=== PATIENT | female | born 1930 | race African-American/Black ===

== ENCOUNTER 2018-02-04 12:44 | Inpatient (IN) | payer OTHER, MEDICAID ==
[~2018-02-04] VITALS: Ht 167.6 cm; Wt 84.4 kg
[2018-02-04] VITALS (14 sets, daily range): BP systolic 97–167; BP diastolic 33–97
[2018-02-04] MEDS ORDERED: cefTRIAXone 1 GM in NS 55 ML IV STA (12:52)
[2018-02-04] MEDS ORDERED: Zemuron 50mg/5ml Inj IV ONE (13:00)
[2018-02-04] MEDS ORDERED: Ipratropium 0.02% Inh Soln 2.5ml UD HHN ONE (13:00)
[2018-02-04] MEDS ORDERED: Albuterol ud Inhalation HHN ONE (13:00)
[2018-02-04 13:25] LABS: ANION GAP 5 mmol/L (5-15); BLOOD UREA NITROGEN 43 mg/dL (7-18); CALCIUM 9.2 MG/DL (8.5-10.1); CARBON DIOXIDE 31 MMOL/L (21-32); CHLORIDE 99 MMOL/L (98-107); POTASSIUM 5.2 MMOL/L (3.5-5.1); SODIUM 135 MMOL/L (136-145)
[2018-02-04 13:35] LABS: ALANINE AMINOTRANSFERASE 16 U/L (12-78); ALBUMIN 3.3 G/DL (3.4-5.0); ALBUMIN/GLOBULIN RATIO 0.7 (1.0-2.7); ALKALINE PHOSPHATASE 119 U/L (46-116); ASPARTATE AMINO TRANSFERASE 21 U/L (15-37); BILIRUBIN,TOTAL 0.3 MG/DL (0.2-1.0); CREATINE KINASE 53 U/L (26-308)
[2018-02-04 13:43] LABS: EOSINOPHILS % (AUTO) 5.6 % (0.0-3.0); HEMATOCRIT 39.9 % (37.0-47.0); HEMOGLOBIN 13.4 G/DL (12.0-16.0); LYMPHOCYTES % (AUTO) 36.3 % (20.0-45.0); MEAN CORPUSCULAR VOLUME 102 FL (80-99); MONOCYTES % (AUTO) 6.8 % (1.0-10.0); NEUTROPHILS % (AUTO) 50.3 % (45.0-75.0); PLATELET COUNT 175 K/UL (150-450); RED CELL DISTRIBUTION WIDTH 12.6 % (11.6-14.8); WHITE BLOOD COUNT 8.7 K/UL (4.8-10.8)
--- NOTE | 2018-02-04 13:58 | Emergency Room Report ---
History of Present Illness General Chief Complaint: Dyspnea/Respdistress Source: Family Member, Medical Record, EMS Present Illness HPI Patient presents from home with altered mental status. Paramedics found that she had respiratory difficulty with wheezing bilaterally and ineffective ventilations. They gave her a breathing treatment on the way in but she didn't improve that much. Initial O2 sat was 85% and remained low. Patient was unresponsive which is a change for her. She has had pneumonia in the recent past. Further history is unavailable. Patient full code. H/O strokes H/O CT H/O seizures, none witnessed at SNF Allergies: Coded Allergies: PENICILLINS (Verified Allergy, Unknown, 02/04/18) SULFA (SULFONAMIDE ANTIBIOTICS) (Verified Allergy, Unknown, 02/04/18) Patient History Past Medical History: see triage record Past Surgical History: other - G tube Social History: Denies: smoking - former Social History Narrative SNF Last Menstrual Period: N/A Now: No Reviewed Nursing Documentation: PMH: Agreed; PSxH: Agreed Nursing Documentation-PMH Hx Hypertension: Yes - CKD Hx COPD: Yes - PNA Hx Diabetes: Yes - DM II, pressure ulcer Hx Gastrointestinal Problems: Yes - GERD, dysphagia Hx Cerebrovascular Accident: Yes - contracture Hx Seizures: Yes Physical Exam Vital Signs Date Time Temp Pulse Resp B/P (MAP) Pulse Ox O2 Delivery O2 Flow Rate FiO2 02/04/18 12:45 70 26 131/72 98 Room Air General Appearance: severe distress, Chronically Ill Head: normocephalic, atraumatic Eyes: bilateral eye PERRL ENT: moist mucus membranes - poor dentition Neck: other - some rigidity Respiratory: decreased breath sounds, wheezing, expiration, inspiration, other - poor tidal volume and rate Cardiovascular #1: bradycardia, irregularly irregular Cardiovascular #2: 2+ radial (L) Gastrointestinal: other - G tube, decreased bowel sounds Musculoskeletal: other - contractures Neurologic: other - stupor and decreased responsiveness Psychiatric: other - stupor and unresponsive until intubation Skin: cyanosis Procedures Critical Care Time Critical Care Time Total Critical Care Time: 60 min bedside evaluation and treatment excludes procedures (EKG, intubation). Reason for critical care: resp failure, hypotension Possible complications: hypotension, hypertension, CT, shock, arrhythmias, metabolic acidosis, end organ damage, respiratory failure. Interventions: intubation, repeat evaluations, discussion with family, breathing treatments, treatment of hypotension with sedation Course: Patient with respiratory failure. Intubated. Sedated. Breathing treatments given. Coverage with antibiotics. Transient hypotension associated with propofol and improved with fluid bolus. Discussion with family and admitting MD. Vent changed with ABG. Consultations: nursing staff, EMS, family, RT, admitting MD Performed by: Dr. Saucedo Tolerated well condition = critical Intubation Intubation : Consent: Emergent Intubation Method: orotracheal Tube Size (cm): 7.5 - 23 teeth Medications: Etomidate Breath Sounds after Intubation: equal Intubation Complications: no complications Post Intubation Xray: Yes Attempts: Other - 2 - initially biting down before etomidate Patient Tolerated: Well Complications: None Progress Initial attempt prior to etomidate - patient not relaxed and biting down. Patient vomited after etomidate administration and suctioned by me. Second attempt successful though patient with strong cough requiring Rocuronium. Good BS bilat. No evidence of aspiration (clear ET). Medical Decision Making Diagnostic Impression: Primary Impression: Respiratory failure Qualified Codes: J96.01 - Acute respiratory failure with hypoxia; J96.02 - Acute respiratory failure with hypercapnia Additional Impressions: UTI (urinary tract infection) Qualified Codes: N30.00 - Acute cystitis without hematuria Atrial fibrillation Qualified Codes: I48.2 - Chronic atrial fibrillation ER Course Patient with respiratory distress wheezes, hypoxia and hypopnea. Ineffective respirations and respiratory failure required immediate intubation. DDX: sepsis , pneumonia, exacerbation COPD, AMI aspiration amongst others. Evaluation with EKG, CXR, labs. Bronchospasm present and albuterol/atrovent ordered. Gentle IV hydration with consideration for sepsis resuscitation if labs indicated. Consider solumedrol. Intubated. Etomidate used. Forceful respirations after and Rocuronium used before propofol initiated. EKG without injury - however, A fib with occasional bradycardic periods. CXR with possible RML infiltrate - ET good placement. Labs with normal WBC (eosinophilia), sl renal insufficiency, normal lactate and troponin. Pyuria - antibiotics begun to cover both urine and pneumonia. Hypotensive on propofol. D/C propofol. Bolus NS. Solumedrol given. BP better. Patient more alert with intubation. FIO2 decreased based on ABG. Discussed events with family. Admit ICU, Dr. Sprague. In retrospect, may be altered from UTI with severe bronchospasm causing resp failure. Laboratory Tests Test 02/04/18 12:50 02/04/18 14:05 White Blood Count 8.7 K/UL (4.8-10.8) Red Blood Count 3.90 M/UL (4.20-5.40) L Hemoglobin 13.4 G/DL (12.0-16.0) Hematocrit 39.9 % (37.0-47.0) Mean Corpuscular Volume 102 FL (80-99) H Mean Corpuscular Hemoglobin 34.4 PG (27.0-31.0) H Mean Corpuscular Hemoglobin Concent 33.6 G/DL (32.0-36.0) Red Cell Distribution Width 12.6 % (11.6-14.8) Platelet Count 175 K/UL (150-450) Mean Platelet Volume 10.7 FL (6.5-10.1) H Neutrophils (%) (Auto) 50.3 % (45.0-75.0) Lymphocytes (%) (Auto) 36.3 % (20.0-45.0) Monocytes (%) (Auto) 6.8 % (1.0-10.0) Eosinophils (%) (Auto) 5.6 % (0.0-3.0) H Basophils (%) (Auto) 1.0 % (0.0-2.0) Prothrombin Time 10.7 SEC (9.30-11.50) Prothrombin Time INR 1.0 (0.9-1.1) PTT 29 SEC (23-33) Arterial Blood pH 7.465 (7.350-7.450) Arterial Blood Partial Pressure CO2 30.6 mmHg (35.0-45.0) L Arterial Blood Partial Pressure O2 203.3 mmHg (75.0-100.0) H Arterial Blood HCO3 21.5 mmol/L (22.0-26.0) L Arterial Blood Oxygen Saturation 98.5 % (92.0-98.0) H Arterial Blood Base Excess -1.5 Jose Luis Test Positive Sodium Level 135 MMOL/L (136-145) L Potassium Level 5.2 MMOL/L (3.5-5.1) H Chloride Level 99 MMOL/L (98-107) Carbon Dioxide Level 31 MMOL/L (21-32) Anion Gap 5 mmol/L (5-15) Blood Urea Nitrogen 43 mg/dL (7-18) H Creatinine 1.0 MG/DL (0.55-1.30) Estimate Glomerular Filtration Rate mL/min (>60) Glucose Level 153 MG/DL (74-106) H Lactic Acid Level 1.70 mmol/L (0.66-2.22) Calcium Level 9.2 MG/DL (8.5-10.1) Total Bilirubin 0.3 MG/DL (0.2-1.0) Aspartate Amino Transferase (AST) 21 U/L (15-37) Alanine Aminotransferase (ALT) 16 U/L (12-78) Alkaline Phosphatase 119 U/L (46-116) H Total Creatine Kinase 53 U/L (26-308) Troponin I 0.014 ng/mL (0.000-0.056) Pro-B-Type Natriuretic Peptide 2757 pg/mL (0-125) H Total Protein 8.1 G/DL (6.4-8.2) Albumin 3.3 G/DL (3.4-5.0) L Globulin 4.8 g/dL Albumin/Globulin Ratio 0.7 (1.0-2.7) L Triglycerides Level 125 MG/DL (30-150) Urine Color Pale yellow Urine Appearance Turbid Urine pH 5 (4.5-8.0) Urine Specific [place] 1.015 (1.005-1.035) Urine Protein 3+ (NEGATIVE) H Urine Glucose (UA) Negative (NEGATIVE) Urine Ketones Negative (NEGATIVE) Urine Occult Blood 4+ (NEGATIVE) H Urine Nitrite Negative (NEGATIVE) Urine Bilirubin Negative (NEGATIVE) Urine Urobilinogen Normal MG/DL (0.0-1.0) Urine Leukocyte Esterase 3+ (NEGATIVE) H Urine RBC 5-10 /HPF (0 - 2) H Urine WBC Tntc /HPF (0 - 2) H Urine Squamous Epithelial Cells Many /LPF (NONE/OCC) H Urine Bacteria Many /HPF (NONE) H EKG Diagnostic Results Rate: bradycardiac Rhythm: other - a fib ST Segments: other Rhythm Strip Diag. Results EP Interpretation: yes Rhythm: no PVC's, no ectopy, other - a fib Chest X-Ray Diagnostic Results Chest X-Ray Diagnostic Results : Chest X-Ray Ordered: Yes # of Views/Limited/Complete: 1 View Indication: Other EP Interpretation: Yes Interpretation: no effusion, no pneumothorax, other - ET OK, inc RML Impression: Other Electronically Signed by: Electronically signed by Brayan Saucedo MD Last Vital Signs Date Time Temp Pulse Resp B/P (MAP) Pulse Ox O2 Delivery O2 Flow Rate FiO2 02/04/18 23:22 62 19 40 02/04/18 23:00 132/49 100 Mechanical Ventilator 02/04/18 15:45 97.3 15.0 97.3 Status: improved Disposition: ADMITTED INPATIENT Condition: Critical Brayan Saucedo M.D. Feb 04, 2018 13:58
--- NOTE | 2018-02-04 14:03 | Diagnostic Imaging Report ---
Indication: Dyspnea Comparison: None A single view chest radiograph was obtained. Findings: Endotracheal tube is in good position. The heart is enlarged. Lungs are clear. Bones are osteopenic. IMPRESSION: No acute disease
[2018-02-04] MEDS ORDERED: CATAPRES0.1 MG ORAL (14:30)
[2018-02-04] MEDS ORDERED: ASPIRIN81 MG GT (14:30)
[2018-02-04] MEDS ORDERED: ATORVASTATIN CA10 MG GT (14:30)
[2018-02-04 14:33] LABS: APPEARANCE,URINE TURBID; BILIRUBIN, URINE NEGATIVE (NEGATIVE); COLOR,URINE PALE YELLOW; GLUCOSE, URINE (UA) NEGATIVE (NEGATIVE); KETONES,URINE NEGATIVE (NEGATIVE); LEUKOCYTE ESTERASE ,URINE 3+ (NEGATIVE); NITRITE,URINE NEGATIVE (NEGATIVE); PH,URINE 5 (4.5-8.0); PROTEIN,URINE 3+ (NEGATIVE); UROBILINOGEN,URINE NORMAL MG/DL (0.0-1.0)
[2018-02-04] MEDS ORDERED: Solu-MEDROL 125mg Inj IVP ONE (15:00)
[2018-02-04] MEDS: LORazepam Inj 2mg/ml 1ml IV PRN (17:19)
[2018-02-04] MEDS: Vancomycin 1gm/D5W 275ml IVPB SCH ×2 (19:50)
[2018-02-04] MEDS: Heparin 5000 units/ml inj SUBQ SCH (21:25)
--- NOTE | 2018-02-04 22:00 | Consultation ---
DATE OF CONSULTATION: 02/04/2018 PULMONARY CONSULTATION CONSULTING PHYSICIAN: Navdeep Mcgowan M.D. REFERRING PHYSICIAN: Michael Sprague M.D. REASON FOR CONSULTATION: Respiratory failure. HISTORY OF PRESENT ILLNESS: This is an 87-year-old female, who is admitted through the emergency room. The patient has become altered. The patient was brought in with respiratory difficulty and wheezing. The patient's labs and x-rays reviewed as well as arterial blood gases. The patient was noted to have evidence of metabolic acidosis with adequate compensation. In the emergency room, the patient required intubation. She is in significant respiratory distress. The patient is noted to be a Full Code. Care discussed and reviewed and I was asked to evaluate and recommend further. 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 MEDICATIONS: Reviewed. ALLERGIES: Reviewed. SOCIAL HISTORY: The patient is a past smoker. Nonsmoker and nondrinker at present. longterm patient. FAMILY HISTORY: Unobtainable. REVIEW OF SYSTEMS: Unobtainable. PHYSICAL EXAMINATION: GENERAL: A well-developed female, sedated at present. VITAL SIGNS: Blood pressure 130/97, pulse 56, respirations 18, and sats are 100%. The patient is currently on 40% FiO2. HEENT: Negative. NECK: Supple. The patient is orally intubated. No jugular venous distention. LUNGS: Moderate air entry. Scattered wheezes. Scattered rhonchi overall. CARDIAC: Normal S1, S2. Irregularly irregular. Patient is rate controlled. Soft systolic murmur heard at the parasternal border. No rubs or gallops. ABDOMEN: Soft, nontender, and nondistended. EXTREMITIES: No cyanosis, clubbing, or edema. NEUROLOGICAL: Withdrawn, but sedated at present. SKIN: Noted and reviewed. LABORATORY DATA: Reviewed. ABG 7.46, 32, and 321. Chemistry, sodium 135, potassium 5.2, BUN 43, and creatinine is 1. BNP 2757. CBC noted and reviewed. White blood cell count 8.7, hematocrit 39, and platelets 175. Chest x-ray obtained notable for clear lungs. IMPRESSIONS: 1. Chronic obstructive pulmonary disease with acute exacerbation 2. Acute on chronic encephalopathy. 3. Evidence of metabolic acidosis of unclear etiology. 4. Evidence of significant bronchospasm. 5. Hypokalemia. 6. Acute renal failure. RECOMMENDATIONS: I agree with management. Ventilatory support. Sedate as needed. IV Solu-Medrol. Empiric antibiotics. IV hydration. DVT prophylaxis. Nebulized therapy and monitor clinically for change in intervention. Reassess in the a.m. for ventilatory support and possibility of weaning off the ventilator if stable. At present, monitor for agitation and worsening pressures. Navdeep Mcgowan M.D. DR: TYSHAWN JOB#: [id number] CC: PHYLLIS
[2018-02-05] VITALS (24 sets, daily range): BP systolic 89–149; BP diastolic 37–61
--- NOTE | 2018-02-05 04:45 | Consultation ---
DATE OF CONSULTATION: 02/04/2018 CARDIOLOGY CONSULTATION CONSULTING PHYSICIAN: Brayan Card M.D. REQUESTING PHYSICIAN: Michael Sprague M.D. REASON FOR CONSULTATION: Atrial fibrillation in the setting of acute respiratory failure. HISTORY OF PRESENT ILLNESS: This is an 87-year-old female. [facility]. Members of family are at bedside and have been given the majority of the historical data. The patient is now orally intubated and mechanically ventilated and is noncommunicative. The patient apparently was transferred from a prison facility with respiratory distress and congestion. She was altered, withdrawn, and her niece notes that she was not answering questions or as responsive as usual yesterday baseline her verbal communication is limited. In the emergency room, intubation and mechanical ventilation were initiated due to impending respiratory failure and I have been asked to address abnormal cardiac rhythm and further cardiovascular care. PAST MEDICAL HISTORY: Includes COPD, chronic kidney disease due to diabetic nephropathy, non-insulin requiring diabetes mellitus, gastroesophageal reflux disease, dysphagia with G-tube, cerebrovascular disease with dementia and contractures, seizure disorder, and hypertensive heart disease. MEDICATIONS: Prior to admission have been reviewed and reconciled. ALLERGIES: Include sulfa and penicillin. SOCIAL HISTORY: Prior smoker. No history of alcohol or substance abuse. FAMILY HISTORY: Noncontributory. REVIEW OF SYSTEMS: Not obtainable from the patient and pertinent data was obtained from family member and chart review as outlined above. PHYSICAL EXAMINATION: VITAL SIGNS: Blood pressure 132/49, heart rate 64, respiratory rate 18, and afebrile. HEENT: Orally intubated. Pupils are reactive. LUNGS: With coarse breath sounds and rhonchi. CARDIAC: Irregularly irregular rhythm. Normal S1. Paradoxically split S2. ABDOMEN: Soft, nontender. G-tube intact. EXTREMITIES: Trace edema. LABORATORY AND DIAGNOSTIC DATA: EKG, atrial fibrillation with slow ventricular response and bundle-branch block. Chest x-ray with possible right middle lobe infiltrate. Labs, white count 8.7, hemoglobin 13.4. ABG, 7.46, 31, 200. Urinalysis with too numerous to count white cells. Sodium 135, potassium 5.2, bicarbonate 31, BUN 43, creatinine 1.0, and glucose 153. Pro-natriuretic peptide 2700. Troponin 0.014. Albumin 3.3. IMPRESSION: 1. Atrial fibrillation with slow ventricular response. 2. 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 3. Chronic diastolic congestive heart failure with possible acute component. 4. Urinary tract infection with sepsis. 5. Cerebrovascular disease with dementia. 6. Critical and guarded. PLAN: 1. Cautious hydration. 2. Broad-spectrum antibiotics with allergies noted. 3. DVT prophylaxis. 4. Stress ulcer prophylaxis. 5. Monitor acid-base parameters. 6. Adjust vent settings accordingly. 7. Check echocardiogram. 8. Serial troponin levels. 9. No diuresis at this time. 10. Family members made aware of current critical condition and plan of care. 11. Check thyroid function. Brayan Card M.D. DR: Rocio JOB#: [id number] CC:
[2018-02-05 06:29] LABS: BASOPHILS % (AUTO) 0.4 % (0.0-2.0); EOSINOPHILS % (AUTO) 0.9 % (0.0-3.0); HEMATOCRIT 29.4 % (37.0-47.0); HEMOGLOBIN 10.2 G/DL (12.0-16.0); LYMPHOCYTES % (AUTO) 20.1 % (20.0-45.0); MEAN CORPUSCULAR VOLUME 100 FL (80-99); MONOCYTES % (AUTO) 10.6 % (1.0-10.0); PLATELET COUNT 135 K/UL (150-450); RED BLOOD COUNT 2.94 M/UL (4.20-5.40); RED CELL DISTRIBUTION WIDTH 11.9 % (11.6-14.8); WHITE BLOOD COUNT 10.2 K/UL (4.8-10.8)
[2018-02-05 07:00] LABS: ALANINE AMINOTRANSFERASE 17 U/L (12-78); ALBUMIN 2.7 G/DL (3.4-5.0); ALBUMIN/GLOBULIN RATIO 0.7 (1.0-2.7); ALKALINE PHOSPHATASE 99 U/L (46-116); ANION GAP 9 mmol/L (5-15); ASPARTATE AMINO TRANSFERASE 29 U/L (15-37); BILIRUBIN,TOTAL 0.6 MG/DL (0.2-1.0); BLOOD UREA NITROGEN 30 mg/dL (7-18); CALCIUM 8.1 MG/DL (8.5-10.1); CARBON DIOXIDE 24 MMOL/L (21-32); CHLORIDE 105 MMOL/L (98-107); CREATININE 0.8 MG/DL (0.55-1.30); POTASSIUM 3.9 MMOL/L (3.5-5.1); SODIUM 138 MMOL/L (136-145)
[2018-02-05] MEDS: Phenytoin Susp 100mg/4ml NG SCH ×2 (09:11→12:08)
[2018-02-05] MEDS: levETIRAcetam 500mg/5ml Liquid NG SCH ×2 (09:11→20:23)
[2018-02-05] MEDS: Heparin 5000 units/ml inj SUBQ SCH ×2 (09:17→20:24)
[2018-02-05] MEDS: Pantoprazole Inj IVP SCH (12:13)
[2018-02-05] MEDS ORDERED: NS 275ml ONE (14:41)
[2018-02-05] MEDS ORDERED: Tubing IV Secondary IV ONE (14:41)
--- NOTE | 2018-02-05 14:55 | Critical Care Progress Note ---
Assessment/Plan Assessment/Plan IMPRESSIONS: 1. Chronic obstructive pulmonary disease with acute exacerbation 2. Acute on chronic encephalopathy. 3. Evidence of metabolic acidosis of unclear etiology. 4. Evidence of significant bronchospasm. improved 5. Hypokalemia. 6. Acute renal failure. 7. protein calorie malnutrition PLAN care noted IV antibiotics respiratory care Ventilatory support reviewed meds supportive care suction as needed no wean today; hope to begin in am oxygen therapy prognosis guarded medications/laboratory data/nursing notes/ICU care reviewed in detail note reviewed and edited care discussed with RN and RT ICU time spent 37 minutes Critical Care - Subjective Interval Events: on the vent stable currently no significant bronchospasm ROS Limited/Unobtainable: Yes Condition: critical EKG Rhythm: Sinus Rhythm I&O: Intake and Output 02/04/18 02/05/18 19:00 07:00 Intake Total 100 ml 1475 ml Output Total 100 ml 1200 ml Balance 0 ml 275 ml Intake Oral 0 ml 0 ml IV Total 100 ml 1475 ml Output Urine Total 100 ml 1200 ml Stool Total 0 ml # Bowel Movements 1 Critical Care - Objective ET-Tube: 7.5 ET Position: 23 Last 24 Hour Vital Signs Date Time Temp Pulse Resp B/P (MAP) Pulse Ox O2 Delivery O2 Flow Rate FiO2 02/05/18 14:00 67 18 89/39 100 Mechanical Ventilator 40 02/05/18 13:01 68 18 40 02/05/18 13:00 70 18 141/53 100 Mechanical Ventilator 40 02/05/18 12:00 74 02/05/18 12:00 99.1 71 17 136/52 100 Mechanical Ventilator 40 99.1 02/05/18 12:00 40 02/05/18 11:00 73 18 147/56 100 Mechanical Ventilator 40 02/05/18 10:55 64 18 40 02/05/18 10:00 67 18 126/49 100 Mechanical Ventilator 40 02/05/18 09:00 69 18 40 02/05/18 09:00 70 18 115/42 100 Mechanical Ventilator 40 02/05/18 08:00 99.4 72 18 126/47 100 Mechanical Ventilator 40 99.4 02/05/18 08:00 40 02/05/18 08:00 70 02/05/18 07:00 70 18 104/37 100 Mechanical Ventilator 40 02/05/18 06:53 67 18 40 02/05/18 06:00 68 18 113/42 100 Mechanical Ventilator 40 02/05/18 05:12 72 18 40 02/05/18 05:00 73 18 117/46 100 Mechanical Ventilator 40 02/05/18 04:00 79 02/05/18 04:00 97.6 79 18 149/49 100 Mechanical Ventilator 40 97.6 02/05/18 04:00 40 02/05/18 03:05 66 18 40 02/05/18 03:00 66 18 110/43 100 Mechanical Ventilator 40 02/05/18 02:00 69 18 131/47 100 Mechanical Ventilator 40 02/05/18 01:25 65 18 40 02/05/18 01:00 60 18 127/46 100 Mechanical Ventilator 40 02/05/18 00:00 59 02/05/18 00:00 59 18 125/47 100 Mechanical Ventilator 40 02/05/18 00:00 40 02/04/18 23:22 62 19 40 02/04/18 23:00 54 18 132/49 100 Mechanical Ventilator 40 02/04/18 22:00 64 18 132/49 100 Mechanical Ventilator 40 02/04/18 22:00 64 02/04/18 21:20 54 18 40 02/04/18 20:07 54 18 138/33 100 Mechanical Ventilator 40 02/04/18 20:00 40 02/04/18 20:00 54 02/04/18 19:53 56 18 130/97 100 Mechanical Ventilator 40 02/04/18 19:30 40 02/04/18 19:03 56 18 40 02/04/18 18:00 56 18 130/97 100 Mechanical Ventilator 60 02/04/18 17:21 53 18 40 02/04/18 17:00 60 18 112/43 100 Mechanical Ventilator 60 02/04/18 16:16 48 02/04/18 16:00 53 53 111/82 97 Mechanical Ventilator 60 02/04/18 15:45 97.3 49 18 121/35 98 Mechanical Ventilator 15.0 60 97.3 02/04/18 15:43 40 02/04/18 15:30 53 20 149/65 98 Mechanical Ventilator 60 Labs: Laboratory Tests Test 02/05/18 05:00 White Blood Count 10.2 K/UL (4.8-10.8) Red Blood Count 2.94 M/UL (4.20-5.40) L Hemoglobin 10.2 G/DL (12.0-16.0) L Hematocrit 29.4 % (37.0-47.0) L Mean Corpuscular Volume 100 FL (80-99) H Mean Corpuscular Hemoglobin 34.8 PG (27.0-31.0) H Mean Corpuscular Hemoglobin Concent 34.8 G/DL (32.0-36.0) Red Cell Distribution Width 11.9 % (11.6-14.8) Platelet Count 135 K/UL (150-450) L Mean Platelet Volume 9.3 FL (6.5-10.1) Neutrophils (%) (Auto) 68.0 % (45.0-75.0) Lymphocytes (%) (Auto) 20.1 % (20.0-45.0) Monocytes (%) (Auto) 10.6 % (1.0-10.0) H Eosinophils (%) (Auto) 0.9 % (0.0-3.0) Basophils (%) (Auto) 0.4 % (0.0-2.0) Sodium Level 138 MMOL/L (136-145) Potassium Level 3.9 MMOL/L (3.5-5.1) Chloride Level 105 MMOL/L (98-107) Carbon Dioxide Level 24 MMOL/L (21-32) Anion Gap 9 mmol/L (5-15) Blood Urea Nitrogen 30 mg/dL (7-18) H Creatinine 0.8 MG/DL (0.55-1.30) Estimat Glomerular Filtration Rate mL/min (>60) Glucose Level 126 MG/DL (74-106) H Calcium Level 8.1 MG/DL (8.5-10.1) L Magnesium Level 2.1 MG/DL (1.8-2.4) Total Bilirubin 0.6 MG/DL (0.2-1.0) Aspartate Amino Transf (AST/SGOT) 29 U/L (15-37) Alanine Aminotransferase (ALT/SGPT) 17 U/L (12-78) Alkaline Phosphatase 99 U/L (46-116) Troponin I 0.015 ng/mL (0.000-0.056) Pro-B-Type Natriuretic Peptide 2316 pg/mL (0-125) H Total Protein 6.6 G/DL (6.4-8.2) Albumin 2.7 G/DL (3.4-5.0) L Globulin 3.9 g/dL Albumin/Globulin Ratio 0.7 (1.0-2.7) L Thyroid Stimulating Hormone (TSH) 1.407 uiU/mL (0.358-3.740) Phenytoin (Dilantin) Level 38.7 ug/mL (10-20) *H Objective: GENERAL: A well-developed female, sedated at present.. HEENT: Negative. NECK: Supple. The patient is orally intubated. No jugular venous distention. LUNGS: Moderate air entry. reduced wheezes. minimal rhonchi overall. CARDIAC: Normal S1, S2. Irregularly irregular. Patient is rate controlled. Soft systolic murmur heard at the parasternal border. No rubs or gallops. ABDOMEN: Soft, nontender, and nondistended. no distention EXTREMITIES: No cyanosis, clubbing, or edema. NEUROLOGICAL: Withdrawn, but sedated at present. SKIN: Noted and reviewed. reviewed and edited Micro: Microbiology Date/Time Source Procedure Growth Status 02/05/18 04:00 Stool Clostridium difficile Toxin Assay - Final Complete 02/04/18 14:05 Urine,Clean Catch Urine Culture - Preliminary Resulted BRANDY COLLIER Feb 05, 2018 14:55
--- NOTE | 2018-02-05 17:00 | History and Physical Report ---
DATE OF ADMISSION: 02/05/2018 CHIEF COMPLAINT: Respiratory failure. HISTORY OF PRESENT ILLNESS: The patient is an 87-year-old female. She has a prior history of dementia, stroke, hypertension, and congestive heart failure, who presented from a [facility] facility after being found short of breath and in respiratory distress. On evaluation in the emergency room, the patient required intubation because of impending respiratory failure. Laboratories in the ER were relatively unremarkable. She did appear to have urinary tract infection. Her x-ray was clear. She is now admitted to intensive care unit. She is nonverbal at baseline and is unable to provide any additional history. There are no reports of any fevers or chills. No vomiting. No cough. PAST MEDICAL HISTORY: As above. PAST SURGICAL HISTORY: Includes a history of a G-tube. CURRENT MEDICATIONS: Reconciled and reviewed. ALLERGIES: Penicillin and sulfa. FAMILY HISTORY: Noncontributory. SOCIAL HISTORY: There is no known history of tobacco, ethanol, or drugs. REVIEW OF SYSTEMS: From the patient is unobtainable. PHYSICAL EXAMINATION: VITAL SIGNS: Temperature 98 degrees, pulse 79, respirations 18, and blood pressure 149/49. GENERAL: The patient is a chronic ill-appearing female, in no apparent distress. She is orally intubated and is poorly responsive at baseline. NECK: Supple. There is no jugular venous distention. HEART: Regular rate and rhythm. LUNGS: Clear anteriorly. ABDOMEN: Soft, nontender, and nondistended. EXTREMITIES: Without clubbing, cyanosis, or edema. LABORATORY DATA: Coags are normal. White count was 8, hemoglobin 13, and platelet count of 175,000. Sodium 138, potassium 3.9, chloride 105, bicarb 24, BUN 30, and creatinine was 0.8. Natriuretic peptide level was 2300. Troponin was 0.015. ASSESSMENT: This is a pleasant female with complaints of shortness of breath and respiratory failure. 1. Chronic shortness of breath and respiratory failure, rule out aspiration pneumonia. 2. Sepsis. 3. Urinary tract infection. 4. History of stroke. 5. History of hypertension. 6. Ischemic cardiomyopathy. PLAN: 1. Vent support. 2. Respiratory treatments. 3. Repeat chest x-ray. 4. Broad-spectrum IV antibiotic therapy. 5. Pulmonary, Cardiology, and Infectious Disease consultation will be obtained. 6. We will continue the patient's G-tube feeds. 7. We reviewed medications from the [facility] facility. Michael Sprague M.D. DR: LAYO JOB#: [id number] CC:
[2018-02-05] MEDS: Vancomycin 1gm/D5W 275ml IVPB SCH ×2 (18:45)
[2018-02-06] VITALS (24 sets, daily range): BP systolic 96–162; BP diastolic 39–66
--- NOTE | 2018-02-06 02:30 | Progress Note ---
DATE: 02/05/2018 CARDIOLOGY PROGRESS NOTE SUBJECTIVE: The patient remains orally intubated and mechanically ventilated. She is poorly responsive. The patient's Levophed was tapered off last evening. Monitored rhythm is atrial fibrillation, no pauses. Slow ventricular rates noted. OBJECTIVE: GENERAL: Orally intubated. VITAL SIGNS: Blood pressure 126/47, heart rate 70, respiratory rate 18, and temperature 99.4. LUNGS: Coarse breath sounds. Few rhonchi. HEART: Irregularly irregular rhythm. Normal S1, S2. ABDOMEN: Soft. G-tube intact. EXTREMITIES: Trace edema. Capillary refill is adequate. LABORATORY DATA: White count 10, hemoglobin 10. Potassium 3.9, BUN 30, and creatinine 0.8. Troponin 0.015. Pro-natriuretic peptide 2300. Albumin 2.7. IMPRESSION: 1. Respiratory failure. 2. Urinary tract infection with sepsis. 3. Recovered shock. 4. Conduction system disease. 5. Asymptomatic bradyarrhythmia, improved. 6. Atrial fibrillation with slow ventricular response. 7. Acute myocardial ischemia. 8. Cerebrovascular disease with dementia. 9. Moderate protein-calorie malnutrition. 10. Chronic systolic and diastolic congestive heart failure. PLAN: 1. Antimicrobials. 2. Ventilator support. 3. Weaning efforts will be considered in the next 24 hours. 4. DVT and stress ulcer prophylaxes. 5. Broad-spectrum empiric antibiotics. 6. Nutrition by feeding tube. 7. We will follow. 8. The patient's condition remains critical and prognosis guarded. Brayan Card M.D. DR: Rocio JOB#: [id number] CC:
[2018-02-06 04:26] LABS: BASOPHILS % (AUTO) 1.9 % (0.0-2.0); EOSINOPHILS % (AUTO) 1.5 % (0.0-3.0); HEMATOCRIT 29.5 % (37.0-47.0); HEMOGLOBIN 10.4 G/DL (12.0-16.0); LYMPHOCYTES % (AUTO) 17.3 % (20.0-45.0); MEAN CORPUSCULAR VOLUME 100 FL (80-99); MONOCYTES % (AUTO) 12.2 % (1.0-10.0); NEUTROPHILS % (AUTO) 67.2 % (45.0-75.0); PLATELET COUNT 137 K/UL (150-450); RED BLOOD COUNT 2.95 M/UL (4.20-5.40); RED CELL DISTRIBUTION WIDTH 11.9 % (11.6-14.8)
[2018-02-06 04:47] LABS: ALANINE AMINOTRANSFERASE 15 U/L (12-78); ALBUMIN 2.6 G/DL (3.4-5.0); ALBUMIN/GLOBULIN RATIO 0.6 (1.0-2.7); ALKALINE PHOSPHATASE 97 U/L (46-116); ANION GAP 12 mmol/L (5-15); ASPARTATE AMINO TRANSFERASE 27 U/L (15-37); BILIRUBIN,TOTAL 0.7 MG/DL (0.2-1.0); BLOOD UREA NITROGEN 12 mg/dL (7-18); CARBON DIOXIDE 20 MMOL/L (21-32); CHLORIDE 108 MMOL/L (98-107); CREATININE 0.7 MG/DL (0.55-1.30); POTASSIUM 2.9 MMOL/L (3.5-5.1); SODIUM 140 MMOL/L (136-145)
--- NOTE | 2018-02-06 08:58 | Diagnostic Imaging Report ---
Indication: Aspiration, intubation, foreign body Technique: One view of the chest Comparison: 02/04/2018 Findings: Exam is somewhat hypoventilatory. There is some crowding of the vascular markings in the right hilum. Endotracheal tube projects higher than previously, now at the thoracic inlet. The lungs and pleural spaces are clear. No radiopaque foreign body demonstrated. Impression: Higher position of endotracheal tube Hypoventilatory exam No other significant change This agrees with the preliminary interpretation provided overnight by [facility] teleradiology service.
[2018-02-06] MEDS: levETIRAcetam 500mg/5ml Liquid NG SCH ×2 (09:21→21:09)
[2018-02-06] MEDS: Pantoprazole Inj IVP SCH (09:21)
[2018-02-06] MEDS: Heparin 5000 units/ml inj SUBQ SCH ×2 (09:30→21:11)
[2018-02-06] MEDS: LORazepam Inj 2mg/ml 1ml IV PRN ×3 (10:40→21:30)
[2018-02-06] MEDS ORDERED: Cefepime 2gm/D5W 110ml IV SCH ×2 (13:00)
[2018-02-06] MEDS: Flagyl 500mg/NS 100ml Pre-Mix IV SCH ×2 (13:24→21:36)
--- NOTE | 2018-02-06 14:32 | Critical Care Progress Note ---
Assessment/Plan Assessment/Plan IMPRESSIONS: 1. Chronic obstructive pulmonary disease with acute exacerbation 2. Acute on chronic encephalopathy. 3. Evidence of metabolic acidosis of unclear etiology. 4. Evidence of significant bronchospasm. improved 5. Hypokalemia. 6. Acute renal failure. 7. protein calorie malnutrition 8. possible aspiration PLAN care noted IV antibiotics respiratory care Ventilatory support full for now reviewed meds supportive care suction as needed no wean today; hope to begin in am if aspiration issue has been clarified oxygen therapy prognosis guarded medications/laboratory data/nursing notes/ICU care reviewed in detail note reviewed and edited care discussed with RN and RT ICU time spent 38 minutes Critical Care - Subjective Interval Events: care noted d/w nursing suctioning feeds from ETT ROS Limited/Unobtainable: Yes Condition: critical EKG Rhythm: Sinus Rhythm Residuals: minimal Tube Feeding Tolerated: yes I&O: Intake and Output 02/05/18 02/06/18 19:00 07:00 Intake Total 1525 ml 1100 ml Output Total 885 ml 675 ml Balance 640 ml 425 ml Intake Oral 0 ml 0 ml IV Total 1475 ml 1100 ml Other 50 ml Output Urine Total 885 ml 675 ml # Bowel Movements 3 2 Critical Care - Objective CXR: noted and reviewed ET-Tube: 7.5 ET Position: 23 Last 24 Hour Vital Signs Date Time Temp Pulse Resp B/P (MAP) Pulse Ox O2 Delivery O2 Flow Rate FiO2 02/06/18 14:00 100.1 88 19 139/55 100 Mechanical Ventilator 40 100.1 02/06/18 13:12 81 18 40 02/06/18 13:00 92 19 160/66 100 Mechanical Ventilator 40 02/06/18 12:00 99.2 80 18 133/44 100 Mechanical Ventilator 40 99.2 02/06/18 12:00 81 02/06/18 12:00 40 02/06/18 11:20 78 18 40 02/06/18 11:00 78 19 139/50 100 Mechanical Ventilator 40 02/06/18 10:00 85 19 152/61 100 Mechanical Ventilator 40 02/06/18 09:05 86 22 40 02/06/18 09:00 79 18 143/46 100 Mechanical Ventilator 40 02/06/18 08:00 40 02/06/18 08:00 81 02/06/18 08:00 98.4 78 18 138/49 100 Mechanical Ventilator 40 98.4 02/06/18 07:29 77 18 40 02/06/18 07:00 78 18 146/56 100 Mechanical Ventilator 40 02/06/18 06:00 81 18 162/66 100 Mechanical Ventilator 40 02/06/18 05:30 74 20 40 02/06/18 05:00 79 18 151/53 100 Mechanical Ventilator 40 02/06/18 04:00 98.9 77 20 155/54 100 Mechanical Ventilator 40 98.9 02/06/18 04:00 77 02/06/18 04:00 40 02/06/18 03:20 73 20 40 02/06/18 03:00 72 18 149/53 100 Mechanical Ventilator 40 02/06/18 02:00 71 19 155/61 100 Mechanical Ventilator 40 02/06/18 01:30 62 19 40 02/06/18 01:00 69 18 139/50 100 Mechanical Ventilator 40 02/06/18 00:00 99.2 73 18 153/55 100 Mechanical Ventilator 40 99.2 02/06/18 00:00 40 02/06/18 00:00 73 02/05/18 23:30 61 18 40 02/05/18 23:00 63 18 120/42 100 Mechanical Ventilator 40 02/05/18 22:00 70 18 140/52 100 Mechanical Ventilator 40 02/05/18 21:24 60 19 40 02/05/18 21:00 62 18 107/41 100 Mechanical Ventilator 40 02/05/18 20:00 98.7 66 18 145/53 100 Mechanical Ventilator 40 98.7 02/05/18 20:00 40 02/05/18 20:00 66 02/05/18 19:30 64 18 40 02/05/18 19:00 67 18 116/60 100 Mechanical Ventilator 40 02/05/18 18:00 73 18 136/61 100 Mechanical Ventilator 40 02/05/18 17:00 75 18 145/55 100 Mechanical Ventilator 40 02/05/18 16:54 75 18 40 02/05/18 16:00 69 02/05/18 16:00 40 02/05/18 16:00 98.6 64 18 97/40 100 Mechanical Ventilator 40 98.6 02/05/18 15:00 72 18 40 02/05/18 15:00 60 18 143/50 100 Mechanical Ventilator 40 Labs: Labs Test 02/04/18 12:50 02/04/18 14:05 02/05/18 05:00 02/06/18 04:00 White Blood Count 8.7 K/UL (4.8-10.8) 10.2 K/UL (4.8-10.8) 12.0 K/UL (4.8-10.8) Red Blood Count 3.90 M/UL (4.20-5.40) 2.94 M/UL (4.20-5.40) 2.95 M/UL (4.20-5.40) Hemoglobin 13.4 G/DL (12.0-16.0) 10.2 G/DL (12.0-16.0) 10.4 G/DL (12.0-16.0) Hematocrit 39.9 % (37.0-47.0) 29.4 % (37.0-47.0) 29.5 % (37.0-47.0) Mean Corpuscular Volume 102 FL (80-99) 100 FL (80-99) 100 FL (80-99) Mean Corpuscular Hemoglobin 34.4 PG (27.0-31.0) 34.8 PG (27.0-31.0) 35.2 PG (27.0-31.0) Mean Corpuscular Hemoglobin Concent 33.6 G/DL (32.0-36.0) 34.8 G/DL (32.0-36.0) 35.2 G/DL (32.0-36.0) Red Cell Distribution Width 12.6 % (11.6-14.8) 11.9 % (11.6-14.8) 11.9 % (11.6-14.8) Platelet Count 175 K/UL (150-450) 135 K/UL (150-450) 137 K/UL (150-450) Mean Platelet Volume 10.7 FL (6.5-10.1) 9.3 FL (6.5-10.1) 10.0 FL (6.5-10.1) Neutrophils (%) (Auto) 50.3 % (45.0-75.0) 68.0 % (45.0-75.0) 67.2 % (45.0-75.0) Lymphocytes (%) (Auto) 36.3 % (20.0-45.0) 20.1 % (20.0-45.0) 17.3 % (20.0-45.0) Monocytes (%) (Auto) 6.8 % (1.0-10.0) 10.6 % (1.0-10.0) 12.2 % (1.0-10.0) Eosinophils (%) (Auto) 5.6 % (0.0-3.0) 0.9 % (0.0-3.0) 1.5 % (0.0-3.0) Basophils (%) (Auto) 1.0 % (0.0-2.0) 0.4 % (0.0-2.0) 1.9 % (0.0-2.0) Prothrombin Time 10.7 SEC (9.30-11.50) Prothromb Time International Ratio 1.0 (0.9-1.1) Activated Partial Thromboplast Time 29 SEC (23-33) Arterial Blood pH 7.465 (7.350-7.450) Arterial Blood Partial Pressure CO2 30.6 mmHg (35.0-45.0) Arterial Blood Partial Pressure O2 203.3 mmHg (75.0-100.0) Arterial Blood HCO3 21.5 mmol/L (22.0-26.0) Arterial Blood Oxygen Saturation 98.5 % (92.0-98.0) Arterial Blood Base Excess -1.5 Jose Luis Test Positive Sodium Level 135 MMOL/L (136-145) 138 MMOL/L (136-145) 140 MMOL/L (136-145) Potassium Level 5.2 MMOL/L (3.5-5.1) 3.9 MMOL/L (3.5-5.1) 2.9 MMOL/L (3.5-5.1) Chloride Level 99 MMOL/L (98-107) 105 MMOL/L (98-107) 108 MMOL/L (98-107) Carbon Dioxide Level 31 MMOL/L (21-32) 24 MMOL/L (21-32) 20 MMOL/L (21-32) Anion Gap 5 mmol/L (5-15) 9 mmol/L (5-15) 12 mmol/L (5-15) Blood Urea Nitrogen 43 mg/dL (7-18) 30 mg/dL (7-18) 12 mg/dL (7-18) Creatinine 1.0 MG/DL (0.55-1.30) 0.8 MG/DL (0.55-1.30) 0.7 MG/DL (0.55-1.30) Estimat Glomerular Filtration Rate mL/min (>60) mL/min (>60) mL/min (>60) Glucose Level 153 MG/DL (74-106) 126 MG/DL (74-106) 133 MG/DL (74-106) Lactic Acid Level 1.70 mmol/L (0.66-2.22) Calcium Level 9.2 MG/DL (8.5-10.1) 8.1 MG/DL (8.5-10.1) 8.0 MG/DL (8.5-10.1) Total Bilirubin 0.3 MG/DL (0.2-1.0) 0.6 MG/DL (0.2-1.0) 0.7 MG/DL (0.2-1.0) Aspartate Amino Transf (AST/SGOT) 21 U/L (15-37) 29 U/L (15-37) 27 U/L (15-37) Alanine Aminotransferase (ALT/SGPT) 16 U/L (12-78) 17 U/L (12-78) 15 U/L (12-78) Alkaline Phosphatase 119 U/L (46-116) 99 U/L (46-116) 97 U/L (46-116) Total Creatine Kinase 53 U/L (26-308) Troponin I 0.014 ng/mL (0.000-0.056) 0.015 ng/mL (0.000-0.056) Pro-B-Type Natriuretic Peptide 2757 pg/mL (0-125) 2316 pg/mL (0-125) Total Protein 8.1 G/DL (6.4-8.2) 6.6 G/DL (6.4-8.2) 6.8 G/DL (6.4-8.2) Albumin 3.3 G/DL (3.4-5.0) 2.7 G/DL (3.4-5.0) 2.6 G/DL (3.4-5.0) Globulin 4.8 g/dL 3.9 g/dL 4.2 g/dL Albumin/Globulin Ratio 0.7 (1.0-2.7) 0.7 (1.0-2.7) 0.6 (1.0-2.7) Triglycerides Level 125 MG/DL (30-150) Urine Color Pale yellow Urine Appearance Turbid Urine pH 5 (4.5-8.0) Urine Specific [place] 1.015 (1.005-1.035) Urine Protein 3+ (NEGATIVE) Urine Glucose (UA) Negative (NEGATIVE) Urine Ketones Negative (NEGATIVE) Urine Occult Blood 4+ (NEGATIVE) Urine Nitrite Negative (NEGATIVE) Urine Bilirubin Negative (NEGATIVE) Urine Urobilinogen Normal MG/DL (0.0-1.0) Urine Leukocyte Esterase 3+ (NEGATIVE) Urine RBC 5-10 /HPF (0 - 2) Urine WBC Tntc /HPF (0 - 2) Urine Squamous Epithelial Cells Many /LPF (NONE/OCC) Urine Bacteria Many /HPF (NONE) Magnesium Level 2.1 MG/DL (1.8-2.4) Thyroid Stimulating Hormone (TSH) 1.407 uiU/mL (0.358-3.740) Phenytoin (Dilantin) Level 38.7 ug/mL (10-20) Objective: GENERAL: A well-developed female, sedated at present.. HEENT: Negative. NECK: Supple. The patient is orally intubated. No jugular venous distention. LUNGS: Moderate air entry. b=no wheezes. no rhonchi overall. CARDIAC: Normal S1, S2. Irregularly irregular. Patient is rate controlled. Soft systolic murmur heard at the parasternal border. No rubs or gallops. ABDOMEN: Soft, nontender, and nondistended. no distention EXTREMITIES: No cyanosis, clubbing, or edema. NEUROLOGICAL: Withdrawn, but sedated at present. SKIN: Noted and reviewed. reviewed and edited Micro: Microbiology Date/Time Source Procedure Growth Status 02/04/18 13:05 Blood Blood Culture - Preliminary NO GROWTH AFTER 24 HOURS Resulted 02/04/18 12:56 Blood Blood Culture - Preliminary NO GROWTH AFTER 24 HOURS Resulted 02/04/18 16:00 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 Complete 02/05/18 04:00 Stool Clostridium difficile Toxin Assay - Final Complete 02/04/18 14:05 Urine,Clean Catch Urine Culture - Preliminary Gram Negative Bacillus 1 Resulted 02/04/18 16:00 Rectum VRE Culture - Final NO VANCOMYCIN RESISTANT ENTEROCOCCUS ... Complete BRANDY COLLIER Feb 06, 2018 14:32
--- NOTE | 2018-02-06 14:55 | General Progress Note ---
Assessment/Plan Problem List: (1) Respiratory distress ICD Codes: R06.03 - Acute respiratory distress SNOMED: 544889079 (2) Atrial fibrillation ICD Codes: I48.91 - Unspecified atrial fibrillation SNOMED: 20828709 Qualifiers: Qualified Codes: I48.2 - Chronic atrial fibrillation (3) Respiratory failure ICD Codes: J96.90 - Respiratory failure, unspecified, unspecified whether with hypoxia or hypercapnia SNOMED: 830034823 Qualifiers: Qualified Codes: J96.01 - Acute respiratory failure with hypoxia; J96.02 - Acute respiratory failure with hypercapnia (4) UTI (urinary tract infection) ICD Codes: N39.0 - Urinary tract infection, site not specified SNOMED: 49879030 Qualifiers: Qualified Codes: N30.00 - Acute cystitis without hematuria Status: stable Assessment/Plan iv abx cefepime added vent resp rx gt feeds hold dilantin ivf Subjective ROS Limited/Unobtainable: Yes Constitutional: Reports: no symptoms HEENT: Reports: no symptoms Cardiovascular: Reports: no symptoms Respiratory: Reports: shortness of breath Gastrointestinal/Abdominal: Reports: difficulty swallowing Genitourinary: Reports: no symptoms Neurologic/Psychiatric: Reports: pre-existing deficit, seizure Endocrine: Reports: no symptoms Hematologic/Lymphatic: Reports: no symptoms Allergies: Coded Allergies: PENICILLINS (Verified Allergy, Unknown, 02/04/18) SULFA (SULFONAMIDE ANTIBIOTICS) (Verified Allergy, Unknown, 02/04/18) All Systems: reviewed and negative except above Subjective no events. fever. UA noted. dilantin level noted. ?aspiration event while being turned yesterday Objective Last 24 Hour Vital Signs Date Time Temp Pulse Resp B/P (MAP) Pulse Ox O2 Delivery O2 Flow Rate FiO2 02/06/18 14:00 100.1 88 19 139/55 100 Mechanical Ventilator 40 100.1 02/06/18 13:12 81 18 40 02/06/18 13:00 92 19 160/66 100 Mechanical Ventilator 40 02/06/18 12:00 99.2 80 18 133/44 100 Mechanical Ventilator 40 99.2 02/06/18 12:00 81 02/06/18 12:00 40 02/06/18 11:20 78 18 40 02/06/18 11:00 78 19 139/50 100 Mechanical Ventilator 40 02/06/18 10:00 85 19 152/61 100 Mechanical Ventilator 40 02/06/18 09:05 86 22 40 02/06/18 09:00 79 18 143/46 100 Mechanical Ventilator 40 02/06/18 08:00 40 02/06/18 08:00 81 02/06/18 08:00 98.4 78 18 138/49 100 Mechanical Ventilator 40 98.4 02/06/18 07:29 77 18 40 02/06/18 07:00 78 18 146/56 100 Mechanical Ventilator 40 02/06/18 06:00 81 18 162/66 100 Mechanical Ventilator 40 02/06/18 05:30 74 20 40 02/06/18 05:00 79 18 151/53 100 Mechanical Ventilator 40 02/06/18 04:00 98.9 77 20 155/54 100 Mechanical Ventilator 40 98.9 02/06/18 04:00 77 02/06/18 04:00 40 02/06/18 03:20 73 20 40 02/06/18 03:00 72 18 149/53 100 Mechanical Ventilator 40 02/06/18 02:00 71 19 155/61 100 Mechanical Ventilator 40 02/06/18 01:30 62 19 40 02/06/18 01:00 69 18 139/50 100 Mechanical Ventilator 40 02/06/18 00:00 99.2 73 18 153/55 100 Mechanical Ventilator 40 99.2 02/06/18 00:00 40 02/06/18 00:00 73 02/05/18 23:30 61 18 40 02/05/18 23:00 63 18 120/42 100 Mechanical Ventilator 40 02/05/18 22:00 70 18 140/52 100 Mechanical Ventilator 40 02/05/18 21:24 60 19 40 02/05/18 21:00 62 18 107/41 100 Mechanical Ventilator 40 02/05/18 20:00 98.7 66 18 145/53 100 Mechanical Ventilator 40 98.7 02/05/18 20:00 40 02/05/18 20:00 66 02/05/18 19:30 64 18 40 02/05/18 19:00 67 18 116/60 100 Mechanical Ventilator 40 02/05/18 18:00 73 18 136/61 100 Mechanical Ventilator 40 02/05/18 17:00 75 18 145/55 100 Mechanical Ventilator 40 02/05/18 16:54 75 18 40 02/05/18 16:00 69 02/05/18 16:00 40 02/05/18 16:00 98.6 64 18 97/40 100 Mechanical Ventilator 40 98.6 02/05/18 15:00 72 18 40 02/05/18 15:00 60 18 143/50 100 Mechanical Ventilator 40 Intake and Output 02/05/18 02/06/18 19:00 07:00 Intake Total 1525 ml 1100 ml Output Total 885 ml 675 ml Balance 640 ml 425 ml Intake Oral 0 ml 0 ml IV Total 1475 ml 1100 ml Other 50 ml Output Urine Total 885 ml 675 ml # Bowel Movements 3 2 Laboratory Tests 02/06/18 04:00: White Blood Count 12.0H, Red Blood Count 2.95L, Hemoglobin 10.4L, Hematocrit 29.5L, Mean Corpuscular Volume 100H, Mean Corpuscular Hemoglobin 35.2H, Mean Corpuscular Hemoglobin Concent 35.2, Red Cell Distribution Width 11.9, Platelet Count 137L, Mean Platelet Volume 10.0, Neutrophils (%) (Auto) 67.2, Lymphocytes (%) (Auto) 17.3L, Monocytes (%) (Auto) 12.2H, Eosinophils (%) (Auto) 1.5, Basophils (%) (Auto) 1.9, Sodium Level 140, Potassium Level 2.9L, Chloride Level 108H, Carbon Dioxide Level 20L, Anion Gap 12, Blood Urea Nitrogen 12, Creatinine 0.7, Estimat Glomerular Filtration Rate , Glucose Level 133H, Calcium Level 8.0L, Total Bilirubin 0.7, Aspartate Amino Transf (AST/SGOT) 27, Alanine Aminotransferase (ALT/SGPT) 15, Alkaline Phosphatase 97, Total Protein 6.8, Albumin 2.6L, Globulin 4.2, Albumin/Globulin Ratio 0.6L Height (Feet): 5 Height (Inches): 6.00 Weight (Pounds): 167 General Appearance: WD/WN, lethargic, confused Neck: supple Cardiovascular: regular rhythm Respiratory/Chest: rhonchi - bilaterally Abdomen: normal bowel sounds, non tender, soft, no organomegaly Edema: no edema noted Arm (L), no edema noted Arm (R), no edema noted Leg (L), no edema noted Leg (R), no edema noted Pedal (L), no edema noted Pedal (R), no edema noted Generalized LAURA ABRAMS Feb 06, 2018 14:55
[2018-02-06] MEDS: Acetaminophen 650mg/20.3ml GT PRN (16:22)
[2018-02-06] MEDS: Vancomycin 1gm/D5W 275ml IVPB SCH ×2 (17:30)
[2018-02-07] VITALS (24 sets, daily range): BP systolic 103–158; BP diastolic 43–72
--- NOTE | 2018-02-07 04:30 | Progress Note ---
DATE: 02/06/2018 CARDIOLOGY PROGRESS NOTE SUBJECTIVE: The patient remains in the intensive care unit. Condition remains critical. Prognosis guarded. She remains orally intubated, mechanically ventilated. The patient has not been weanable yet. The patient's endotracheal tube was repositioned based on radiographic findings. Monitored rhythm remains atrial fibrillation. OBJECTIVE: VITAL SIGNS: Blood pressure 139/55, pulse 88, respiratory rate 19, and temperature 100.1 degrees. LUNGS: Coarse breath sounds. Scattered rhonchi. Thick trach secretions. HEART: Irregularly irregular rhythm. Normal S1 and S2. No murmur auscultated. ABDOMEN: Soft and nontender. G-tube intact. EXTREMITIES: Trace dependent edema. LABORATORY DATA: White count 12 and hemoglobin 10.4. Potassium 2.9, BUN 12, and creatinine 0.7. Albumin 2.6. IMPRESSION: 1. Respiratory failure. 2. Pneumonia. 3. Dysphagia. 4. Paroxysmal atrial fibrillation. 5. Acute on chronic diastolic congestive heart failure. 6. Acute myocardial ischemia. 7. Seizure disorder. 8. Dilantin toxicity. 9. Hypokalemia. PLAN: 1. Hold Dilantin. 2. Cardiac monitoring. 3. Nutrition by G-tube and broad-spectrum antibiotics. 4. Ventilator support. 5. Antipyretics. 6. Potassium replacement. 7. No beta-blockade in view of low baseline heart rate. Brayan Card M.D. DR: SHERWIN JOB#: [id number] CC:
[2018-02-07] MEDS: Flagyl 500mg/NS 100ml Pre-Mix IV SCH (05:43)
[2018-02-07 06:47] LABS: BASOPHILS % (AUTO) 0.7 % (0.0-2.0); EOSINOPHILS % (AUTO) 3.2 % (0.0-3.0); HEMOGLOBIN 11.2 G/DL (12.0-16.0); LYMPHOCYTES % (AUTO) 21.3 % (20.0-45.0); MEAN CORPUSCULAR VOLUME 101 FL (80-99); MONOCYTES % (AUTO) 11.7 % (1.0-10.0); PLATELET COUNT 118 K/UL (150-450); RED BLOOD COUNT 3.07 M/UL (4.20-5.40); WHITE BLOOD COUNT 9.8 K/UL (4.8-10.8)
[2018-02-07 06:57] LABS: ALANINE AMINOTRANSFERASE 11 U/L (12-78); ALBUMIN 2.4 G/DL (3.4-5.0); ALBUMIN/GLOBULIN RATIO 0.5 (1.0-2.7); ALKALINE PHOSPHATASE 89 U/L (46-116); ANION GAP 10 mmol/L (5-15); ASPARTATE AMINO TRANSFERASE 20 U/L (15-37); BILIRUBIN,TOTAL 0.7 MG/DL (0.2-1.0); BLOOD UREA NITROGEN 6 mg/dL (7-18); CALCIUM 8.1 MG/DL (8.5-10.1); CARBON DIOXIDE 20 MMOL/L (21-32); CHLORIDE 109 MMOL/L (98-107); CREATININE 0.7 MG/DL (0.55-1.30); POTASSIUM 3.4 MMOL/L (3.5-5.1); SODIUM 139 MMOL/L (136-145)
[2018-02-07] MEDS: Pantoprazole Inj IVP SCH (08:51)
[2018-02-07] MEDS: levETIRAcetam 500mg/5ml Liquid NG SCH ×2 (08:52→20:55)
[2018-02-07] MEDS: Heparin 5000 units/ml inj SUBQ SCH ×2 (08:52→21:02)
--- NOTE | 2018-02-07 10:51 | Diagnostic Imaging Report ---
Indication: Dyspnea Technique: XRAY Chest 1v Comparison: 02/05/2018 Findings: ET tube with tip just below level of the clavicles. Heart size and mediastinal contours are stable. There is mild pulmonary vascular congestion. There is minimal patchy left basilar opacity thought to represent atelectasis. No large pleural effusion. No pneumothorax. Generative changes of the spine. No acute osseous abnormality seen. IMPRESSION: ET tube tip just below level of clavicles. Cardiomegaly and mild pulmonary vascular congestion. Very mild patchy opacity at the left base thought to represent subsegmental atelectasis. Clinical correlation and follow-up exam recommended.
--- NOTE | 2018-02-07 11:15 | Critical Care Progress Note ---
Assessment/Plan Assessment/Plan IMPRESSIONS: 1. Chronic obstructive pulmonary disease with acute exacerbation 2. Acute on chronic encephalopathy. 3. Evidence of metabolic acidosis of unclear etiology. 4. Evidence of significant bronchospasm. improved 5. Hypokalemia. 6. Acute renal failure. 7. protein calorie malnutrition 8. possible aspiration PLAN care noted IV antibiotics noted cultures reviewed respiratory care Ventilatory support noted reviewed meds supportive care suction as needed try to wean oxygen therapy prognosis guarded aspiration precautions elevate head medications/laboratory data/nursing notes/ICU care reviewed in detail note reviewed and edited care discussed with RN and RT ICU time spent 36 minutes Critical Care - Subjective Interval Events: still with white secretions overall comfortable congestion noted and needs suctioning d/w RN at bedside ROS Limited/Unobtainable: Yes Condition: critical EKG Rhythm: Sinus Rhythm Residuals: minimal Tube Feeding Tolerated: yes I&O: Intake and Output 02/06/18 02/07/18 19:00 07:00 Intake Total 1185 ml 1460 ml Output Total 625 ml 440 ml Balance 560 ml 1020 ml Intake Oral 0 ml 0 ml IV Total 1185 ml 1400 ml Other 60 ml Output Urine Total 625 ml 440 ml # Bowel Movements 3 Critical Care - Objective CXR: improved some residual atelectasis ET-Tube: 7.5 ET Position: 23 Last 24 Hour Vital Signs Date Time Temp Pulse Resp B/P (MAP) Pulse Ox O2 Delivery O2 Flow Rate FiO2 02/07/18 11:11 72 18 40 02/07/18 10:00 72 18 149/56 100 Mechanical Ventilator 40 02/07/18 09:00 67 18 149/56 100 Mechanical Ventilator 40 02/07/18 08:41 66 18 40 02/07/18 08:00 98.8 70 17 134/55 100 Mechanical Ventilator 40 98.8 02/07/18 08:00 40 02/07/18 08:00 62 02/07/18 07:09 67 20 40 02/07/18 07:00 70 18 133/54 100 Mechanical Ventilator 40 02/07/18 06:00 73 18 145/58 100 Mechanical Ventilator 40 02/07/18 05:26 77 19 40 02/07/18 05:00 74 18 145/58 100 Mechanical Ventilator 40 02/07/18 04:00 98.9 60 18 149/59 100 Mechanical Ventilator 40 98.9 02/07/18 04:00 62 02/07/18 04:00 40 02/07/18 03:42 59 18 40 02/07/18 03:00 61 18 140/57 100 Mechanical Ventilator 40 02/07/18 02:00 66 18 133/60 100 Mechanical Ventilator 40 02/07/18 01:00 74 18 136/59 100 Mechanical Ventilator 40 02/07/18 00:52 58 18 40 02/07/18 00:00 98.7 59 18 158/70 100 Mechanical Ventilator 40 98.7 02/07/18 00:00 40 02/07/18 00:00 65 02/06/18 23:00 57 18 118/54 100 Mechanical Ventilator 40 02/06/18 22:43 60 18 40 02/06/18 22:00 60 18 118/54 100 Mechanical Ventilator 40 02/06/18 21:18 63 18 40 02/06/18 21:00 68 18 114/52 100 Mechanical Ventilator 40 02/06/18 20:00 63 02/06/18 20:00 98.9 57 18 111/51 100 Mechanical Ventilator 40 98.9 02/06/18 20:00 40 02/06/18 19:00 62 19 102/60 100 Mechanical Ventilator 40 02/06/18 18:36 70 18 40 02/06/18 18:00 66 19 96/46 100 Mechanical Ventilator 40 02/06/18 17:05 68 18 40 02/06/18 17:00 99.8 65 19 100/39 100 Mechanical Ventilator 40 99.8 02/06/18 16:52 99.9 02/06/18 16:22 100.1 02/06/18 16:00 77 02/06/18 16:00 88 19 149/55 100 Mechanical Ventilator 40 02/06/18 16:00 40 02/06/18 15:00 90 19 118/49 100 Mechanical Ventilator 40 02/06/18 14:45 76 18 40 02/06/18 14:00 100.1 88 19 139/55 100 Mechanical Ventilator 40 100.1 02/06/18 13:12 81 18 40 02/06/18 13:00 92 19 160/66 100 Mechanical Ventilator 40 02/06/18 12:00 99.2 80 18 133/44 100 Mechanical Ventilator 40 99.2 02/06/18 12:00 81 02/06/18 12:00 40 02/06/18 11:20 78 18 40 Labs: Laboratory Tests Test 4/14/18 04:00 02/07/18 06:00 Arterial Blood pH 7.466 (7.350-7.450) Arterial Blood Partial Pressure CO2 27.0 mmHg (35.0-45.0) L Arterial Blood Partial Pressure O2 133.0 mmHg (75.0-100.0) H Arterial Blood HCO3 19.0 mmol/L (22.0-26.0) L Arterial Blood Oxygen Saturation 98.4 % (92.0-98.0) H Arterial Blood Base Excess -3.6 Jose Luis Test Positive White Blood Count 9.8 K/UL (4.8-10.8) Red Blood Count 3.07 M/UL (4.20-5.40) L Hemoglobin 11.2 G/DL (12.0-16.0) L Hematocrit 31.0 % (37.0-47.0) L Mean Corpuscular Volume 101 FL (80-99) H Mean Corpuscular Hemoglobin 36.4 PG (27.0-31.0) H Mean Corpuscular Hemoglobin Concent 36.0 G/DL (32.0-36.0) Red Cell Distribution Width 12.0 % (11.6-14.8) Platelet Count 118 K/UL (150-450) L Mean Platelet Volume 10.7 FL (6.5-10.1) H Neutrophils (%) (Auto) 63.0 % (45.0-75.0) Lymphocytes (%) (Auto) 21.3 % (20.0-45.0) Monocytes (%) (Auto) 11.7 % (1.0-10.0) H Eosinophils (%) (Auto) 3.2 % (0.0-3.0) H Basophils (%) (Auto) 0.7 % (0.0-2.0) Sodium Level 139 MMOL/L (136-145) Potassium Level 3.4 MMOL/L (3.5-5.1) L Chloride Level 109 MMOL/L (98-107) H Carbon Dioxide Level 20 MMOL/L (21-32) L Anion Gap 10 mmol/L (5-15) Blood Urea Nitrogen 6 mg/dL (7-18) L Creatinine 0.7 MG/DL (0.55-1.30) Estimat Glomerular Filtration Rate mL/min (>60) Glucose Level 111 MG/DL (74-106) H Calcium Level 8.1 MG/DL (8.5-10.1) L Magnesium Level 1.9 MG/DL (1.8-2.4) Total Bilirubin 0.7 MG/DL (0.2-1.0) Aspartate Amino Transf (AST/SGOT) 20 U/L (15-37) Alanine Aminotransferase (ALT/SGPT) 11 U/L (12-78) L Alkaline Phosphatase 89 U/L (46-116) Total Protein 6.9 G/DL (6.4-8.2) Albumin 2.4 G/DL (3.4-5.0) L Globulin 4.5 g/dL Albumin/Globulin Ratio 0.5 (1.0-2.7) L Objective: GENERAL: A well-developed female, sedated at present.. HEENT: Negative. NECK: Supple. The patient is orally intubated. No jugular venous distention. LUNGS: Moderate air entry. no wheezes. some rhonchi overall. CARDIAC: Normal S1, S2. Irregularly irregular. Patient is rate controlled. Soft systolic murmur heard at the parasternal border. No rubs or gallops. ABDOMEN: Soft, nontender, and nondistended. no distention EXTREMITIES: No cyanosis, clubbing, or edema. NEUROLOGICAL: Withdrawn, but sedated at present. SKIN: Noted and reviewed. reviewed and edited Micro: Microbiology Date/Time Source Procedure Growth Status 02/04/18 13:05 Blood Blood Culture - Preliminary NO GROWTH AFTER 48 HOURS Resulted 02/04/18 12:56 Blood Blood Culture - Preliminary NO GROWTH AFTER 48 HOURS Resulted 02/04/18 16:00 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 Complete 02/05/18 04:00 Stool Clostridium difficile Toxin Assay - Final Complete 02/04/18 14:05 Urine,Clean Catch Urine Culture - Final Klebsiella Pneumoniae Esbl Klebsiella Pneumoniae Esbl#2 Complete 02/04/18 16:00 Rectum VRE Culture - Final NO VANCOMYCIN RESISTANT ENTEROCOCCUS ... Complete BRANDY COLLIER Feb 07, 2018 11:15
--- NOTE | 2018-02-07 12:31 | General Progress Note ---
Assessment/Plan Problem List: (1) Respiratory distress ICD Codes: R06.03 - Acute respiratory distress SNOMED: 355794836 (2) Atrial fibrillation ICD Codes: I48.91 - Unspecified atrial fibrillation SNOMED: 47878575 Qualifiers: Qualified Codes: I48.2 - Chronic atrial fibrillation (3) Respiratory failure ICD Codes: J96.90 - Respiratory failure, unspecified, unspecified whether with hypoxia or hypercapnia SNOMED: 338628764 Qualifiers: Qualified Codes: J96.01 - Acute respiratory failure with hypoxia; J96.02 - Acute respiratory failure with hypercapnia (4) UTI (urinary tract infection) ICD Codes: N39.0 - Urinary tract infection, site not specified SNOMED: 22469232 Qualifiers: Qualified Codes: N30.00 - Acute cystitis without hematuria Status: stable, progressing Assessment/Plan iv abx per ID vent resp rx gt feeds hold dilantin- monitor ivf Subjective ROS Limited/Unobtainable: Yes Constitutional: Reports: malaise, weakness HEENT: Reports: no symptoms Cardiovascular: Reports: no symptoms Respiratory: Reports: shortness of breath, sputum Gastrointestinal/Abdominal: Reports: difficulty swallowing Genitourinary: Reports: no symptoms Neurologic/Psychiatric: Reports: pre-existing deficit, seizure Endocrine: Reports: no symptoms Hematologic/Lymphatic: Reports: anemia Allergies: Coded Allergies: PENICILLINS (Verified Allergy, Unknown, 02/04/18) SULFA (SULFONAMIDE ANTIBIOTICS) (Verified Allergy, Unknown, 02/04/18) All Systems: reviewed and negative except above Subjective no events. stable on the vent. awake. no fevers. labs noted. Objective Last 24 Hour Vital Signs Date Time Temp Pulse Resp B/P (MAP) Pulse Ox O2 Delivery O2 Flow Rate FiO2 02/07/18 12:00 73 18 152/54 100 Mechanical Ventilator 40 02/07/18 12:00 40 02/07/18 11:11 72 18 40 02/07/18 11:00 78 18 152/54 100 Mechanical Ventilator 40 02/07/18 10:00 72 18 149/56 100 Mechanical Ventilator 40 02/07/18 09:00 67 18 149/56 100 Mechanical Ventilator 40 02/07/18 08:41 66 18 40 02/07/18 08:00 98.8 70 17 134/55 100 Mechanical Ventilator 40 98.8 02/07/18 08:00 40 02/07/18 08:00 62 02/07/18 07:09 67 20 40 02/07/18 07:00 70 18 133/54 100 Mechanical Ventilator 40 02/07/18 06:00 73 18 145/58 100 Mechanical Ventilator 40 02/07/18 05:26 77 19 40 02/07/18 05:00 74 18 145/58 100 Mechanical Ventilator 40 02/07/18 04:00 98.9 60 18 149/59 100 Mechanical Ventilator 40 98.9 02/07/18 04:00 62 02/07/18 04:00 40 02/07/18 03:42 59 18 40 02/07/18 03:00 61 18 140/57 100 Mechanical Ventilator 40 02/07/18 02:00 66 18 133/60 100 Mechanical Ventilator 40 02/07/18 01:00 74 18 136/59 100 Mechanical Ventilator 40 02/07/18 00:52 58 18 40 02/07/18 00:00 98.7 59 18 158/70 100 Mechanical Ventilator 40 98.7 02/07/18 00:00 40 02/07/18 00:00 65 02/06/18 23:00 57 18 118/54 100 Mechanical Ventilator 40 02/06/18 22:43 60 18 40 02/06/18 22:00 60 18 118/54 100 Mechanical Ventilator 40 02/06/18 21:18 63 18 40 02/06/18 21:00 68 18 114/52 100 Mechanical Ventilator 40 02/06/18 20:00 63 02/06/18 20:00 98.9 57 18 111/51 100 Mechanical Ventilator 40 98.9 02/06/18 20:00 40 02/06/18 19:00 62 19 102/60 100 Mechanical Ventilator 40 02/06/18 18:36 70 18 40 02/06/18 18:00 66 19 96/46 100 Mechanical Ventilator 40 02/06/18 17:05 68 18 40 02/06/18 17:00 99.8 65 19 100/39 100 Mechanical Ventilator 40 99.8 02/06/18 16:52 99.9 02/06/18 16:22 100.1 02/06/18 16:00 77 02/06/18 16:00 88 19 149/55 100 Mechanical Ventilator 40 02/06/18 16:00 40 02/06/18 15:00 90 19 118/49 100 Mechanical Ventilator 40 02/06/18 14:45 76 18 40 02/06/18 14:00 100.1 88 19 139/55 100 Mechanical Ventilator 40 100.1 02/06/18 13:12 81 18 40 02/06/18 13:00 92 19 160/66 100 Mechanical Ventilator 40 Intake and Output 02/06/18 02/07/18 19:00 07:00 Intake Total 1185 ml 1460 ml Output Total 625 ml 440 ml Balance 560 ml 1020 ml Intake Oral 0 ml 0 ml IV Total 1185 ml 1400 ml Other 60 ml Output Urine Total 625 ml 440 ml # Bowel Movements 3 Laboratory Tests 02/07/18 04:00: Arterial Blood pH 7.466H, Arterial Blood Partial Pressure CO2 27.0L, Arterial Blood Partial Pressure O2 133.0H, Arterial Blood HCO3 19.0L, Arterial Blood Oxygen Saturation 98.4H, Arterial Blood Base Excess -3.6, Jose Luis Test Positive 02/07/18 06:00: White Blood Count 9.8, Red Blood Count 3.07L, Hemoglobin 11.2L, Hematocrit 31.0L , Mean Corpuscular Volume 101H, Mean Corpuscular Hemoglobin 36.4H, Mean Corpuscular Hemoglobin Concent 36.0, Red Cell Distribution Width 12.0, Platelet Count 118L, Mean Platelet Volume 10.7H, Neutrophils (%) (Auto) 63.0, Lymphocytes (%) (Auto) 21.3, Monocytes (%) (Auto) 11.7H, Eosinophils (%) (Auto) 3.2H, Basophils (%) (Auto) 0.7, Sodium Level 139, Potassium Level 3.4L, Chloride Level 109H, Carbon Dioxide Level 20L, Anion Gap 10, Blood Urea Nitrogen 6L, Creatinine 0.7, Estimat Glomerular Filtration Rate , Glucose Level 111H, Calcium Level 8.1L, Magnesium Level 1.9, Total Bilirubin 0.7, Aspartate Amino Transf (AST/SGOT) 20, Alanine Aminotransferase (ALT/SGPT) 11L, Alkaline Phosphatase 89, Total Protein 6.9, Albumin 2.4L, Globulin 4.5, Albumin/Globulin Ratio 0.5L Height (Feet): 5 Height (Inches): 6.00 Weight (Pounds): 169 Objective General Appearance: WD/WN, lethargic, confused Neck: supple Cardiovascular: regular rhythm Respiratory/Chest: rhonchi - bilaterally Abdomen: normal bowel sounds, non tender, soft, no organomegaly Edema: no edema noted Arm (L), no edema noted Arm (R), no edema noted Leg (L), no edema noted Leg (R), no edema noted Pedal (L), no edema noted Pedal (R), no edema noted Generalized LAURA ABRAMS Feb 07, 2018 12:31
[2018-02-07] MEDS: Meropenem 1 GM in NS 110 ML IVPB SCH ×2 (12:55→20:55)
[2018-02-07] MEDS: LORazepam Inj 2mg/ml 1ml IV PRN ×2 (12:56→17:03)
--- NOTE | 2018-02-07 13:03 | Operative Note - PDOC ---
Operative Note Operative Note Date of Operation/Procedure: Feb 07, 2018 Pre-op Diagnosis: sepsis, hypotension, tachycardia, respiratory distress Procedure: left subclavian central venous catheter insertion Post-op Diagnosis: same as pre-op Surgeon: moisés Anesthesia: local Specimen: none Complications: none Condition: stable Estimated Blood Loss: minimal Drains: none Implant(s) used?: Yes - triple lumen catheter Indications for Procedure 84F septic with respiratory distress in ICU. requiring multiple medications and fluids for resuscitation. needs central access which was indicated and recommended. Description of Procedure Informed consent was obtained by the patient next of kin. All risks and benefits of the procedure were explained and all questions were answered. The patient was prepped and draped in the normal sterile fashion. After landmarks were identified, 1% lidocaine were injected into the skin and subcuticular tissues for proposed needle insertion site. A finder needle was then used with orientation aimed toward the sternal notch. The left subclavian vein was then accessed. A guidewire was placed with a needle and then the needle was subsequently removed and a #11 blade scalpel was used to nils the skin. A dilator sheath was placed over the guidewire and subsequently removed. The triple lumen catheter was then placed over the guidewire and advanced. All ports aspirated and flushed. Good venous blood return was noted and all ports were flushed well. The triple lumen catheter was then secured #0 silk suture. A sterile dressing was then applied. A stat portable chest x-ray was ordered to check line placement. The patient tolerated the procedure well and there were no complications. Trent Franco Feb 07, 2018 13:03
--- NOTE | 2018-02-07 13:48 | Diagnostic Imaging Report ---
Indication: Central line placement Technique: XRAY Chest 1v Comparison: 02/07/2018, 8:08 Findings: Interval placement of left subclavian approach central venous catheter, catheter tip in the region of the cavoatrial junction. There is no definite pneumothorax. Enteric tube tip below the level of the clavicles, unchanged. Heart size and mediastinal contours are stable. There is increasing retrocardiac atelectasis/consolidation. There is some fluid noted along the right minor fissure. There is persistent pulmonary vascular congestion. IMPRESSION: Interval placement of left subclavian approach central venous catheter. Catheter tip at the level of the cavoatrial junction. No definite pneumothorax is seen. Increasing retrocardiac atelectasis/consolidation. Cardiomegaly and pulmonary vascular congestion/mild interstitial edema.
[2018-02-07] MEDS ORDERED: Zemuron 50mg/5ml Inj IV ONE (15:08)
[2018-02-07] MEDS ORDERED: Etomidate 40mg/20ml Inj IV ONE (15:08)
[2018-02-07] MEDS: Acetaminophen 650mg/20.3ml GT PRN (17:03)
--- NOTE | 2018-02-07 18:30 | Consultation ---
DATE OF CONSULTATION: 02/07/2018 INFECTIOUS DISEASES CONSULTATION REFERRING PHYSICIAN: Michael Sprague M.D. REASON FOR CONSULTATION: Urinary tract infection and pneumonia. HISTORY OF PRESENTING ILLNESS: This is an 87-year-old lady with history of dementia, stroke, hypertension, and congestive heart failure, who came in from a residential facility with shortness of breath and respiratory distress. She was intubated. She has been admitted to the ICU and an Infectious Diseases consultation has been obtained for antibiotics. PAST MEDICAL HISTORY: 1. History of dementia. 2. History of stroke. 3. History of hypertension. 4. Congestive heart failure. 5. Status post G-tube placement. 6. History of chronic obstructive pulmonary disease. 7. Chronic kidney disease. 8. Diabetic nephropathy. 9. Diabetes. 10. Gastroesophageal reflex disease. 11. Cerebrovascular accident. 12. Seizures. MEDICATIONS: As an inpatient, she is on Tylenol, cefepime, Flagyl, Protonix, Keppra, subcutaneous heparin, vancomycin, and lorazepam. ALLERGIES: 1. Penicillin. 2. Sulfa. SOCIAL HISTORY: She used to be a smoker. She does not drink or use drugs. FAMILY HISTORY: Noncontributory. REVIEW OF SYSTEMS: Unable to obtain currently. PHYSICAL EXAMINATION: VITAL SIGNS: Temperature of 98.8 degrees, T-max of 100.1 degrees, pulse of 72, respiratory rate of 18, blood pressure 149/56, and O2 saturation of 100%. HEENT: Pupils equally reactive to light and accommodation. Mouth appears clean without thrush. The patient is intubated. NECK: Supple. No adenopathy. No JVD. CARDIOVASCULAR: Regular rate and rhythm. No murmurs. LUNGS: Clear to auscultation bilaterally. No crackles. No wheezes. ABDOMEN: Soft and nontender. G-tube site appears clean. EXTREMITIES: No cyanosis. No clubbing. No edema. LABORATORY DATA: White count 9.8, hemoglobin 11.2, hematocrit 31, MCV 101, platelet count of 118, and neutrophils of 53%. Sodium 139, potassium 3.4, chloride 109, bicarbonate 20, BUN 6, creatinine 0.7, glucose 111, and calcium 8.1. Total bilirubin 0.7. AST 20, ALT 11, and alkaline phosphatase 89. Total protein 6.9. Albumin 2.4. UA showing too numerous to count white cells. 02/04/2018 blood cultures are negative. 02/04/2018 urine culture growing Klebsiella pneumoniae, which is susceptible to ertapenem, imipenem, piperacillin and tazobactam, and amikacin. 02/04/2018 nasal swab was negative for MRSA. 02/04/2018 rectal swab was negative for VRE. 02/05/2018 stool for C. difficile is negative. ASSESSMENT: This is an 87-year-old lady with history of diabetes, hypertension, and congestive heart failure, who comes in and is found to have: 1. Klebsiella urinary tract infection. 2. Possible aspiration pneumonia. PLAN: 1. Continue IV vancomycin. 2. Discontinue cefepime and Flagyl. 3. We will start the patient on meropenem. 4. We will order sputum for Gram stain and culture. 5. We will follow up cultures and adjust antibiotics accordingly. I would like to thank, Dr. Card, and Dr. Sprague for this consultation. Joselin Murillo M.D. DR: Ever JOB#: [id number] CC: Marva William M.D.
[2018-02-07] MEDS: Dyna-Hex 2% Top Sol 2oz TOPIC SCH (19:50)
[2018-02-07] MEDS: Vancomycin 750mg/NS 250ml IVPB SCH (20:23)
[2018-02-08] VITALS (26 sets, daily range): BP systolic 114–184; BP diastolic 46–72
--- NOTE | 2018-02-08 01:30 | Progress Note ---
DATE: 02/07/2018 CARDIOLOGY PROGRESS NOTE SUBJECTIVE: The patient remains in the intensive care unit. Condition remains critical with guarded prognosis. She is on full ventilator support. She has not been weanable. OBJECTIVE: VITAL SIGNS: Blood pressure of 152/54, pulse 73, respirations 18. Monitor, atrial fibrillation. HEENT: Orally intubated. Thin trach secretions. LUNGS: Bilateral rhonchi. Few rales. HEART: Irregularly irregular rhythm. Normal S1, paradoxically split S2. ABDOMEN: Soft. G-tube intact. EXTREMITIES: Trace dependent edema. LABORATORY DATA: Laboratories reviewed. IMPRESSION: 1. Respiratory failure. 2. Chronic atrial fibrillation. 3. Dilantin toxicity. 4. Dysphagia. 5. Aspiration pneumonia. 6. Acute on chronic diastolic congestive heart failure. 7. Acute myocardial ischemia. PLAN: 1. Continue to hold Dilantin. 2. Seizure precautions. 3. Cardiac monitoring. 4. Ventilator support. 5. Wean as able. 6. Antimicrobials. 7. Monitor electrolytes. 8. No beta-sridhar in view of low baseline heart rate. Brayan Card M.D. DR: NGOC JOB#: [id number] CC:
[2018-02-08] MEDS: LORazepam Inj 2mg/ml 1ml IV PRN ×4 (04:22→22:18)
[2018-02-08 04:47] LABS: EOSINOPHILS % (AUTO) 6.4 % (0.0-3.0); HEMATOCRIT 31.5 % (37.0-47.0); MEAN CORPUSCULAR VOLUME 101 FL (80-99); MONOCYTES % (AUTO) 10.9 % (1.0-10.0); NEUTROPHILS % (AUTO) 56.7 % (45.0-75.0); PLATELET COUNT 115 K/UL (150-450); RED BLOOD COUNT 3.12 M/UL (4.20-5.40); WHITE BLOOD COUNT 7.6 K/UL (4.8-10.8)
[2018-02-08 05:10] LABS: ALANINE AMINOTRANSFERASE 10 U/L (12-78); ALBUMIN 2.3 G/DL (3.4-5.0); ALBUMIN/GLOBULIN RATIO 0.5 (1.0-2.7); ALKALINE PHOSPHATASE 82 U/L (46-116); ANION GAP 14 mmol/L (5-15); ASPARTATE AMINO TRANSFERASE 27 U/L (15-37); BILIRUBIN,TOTAL 0.7 MG/DL (0.2-1.0); BLOOD UREA NITROGEN 5 mg/dL (7-18); CALCIUM 8.2 MG/DL (8.5-10.1); CARBON DIOXIDE 20 MMOL/L (21-32); CHLORIDE 109 MMOL/L (98-107); CREATININE 0.5 MG/DL (0.55-1.30); POTASSIUM 3.5 MMOL/L (3.5-5.1); SODIUM 143 MMOL/L (136-145)
--- NOTE | 2018-02-08 06:25 | Critical Care Progress Note ---
Assessment/Plan Assessment/Plan IMPRESSIONS: 1. Chronic obstructive pulmonary disease with acute exacerbation 2. Acute on chronic encephalopathy. 3. Evidence of metabolic acidosis 4. Evidence of significant bronchospasm. resolved 5. lyte imbalance 6. Acute renal failure. 7. protein calorie malnutrition 8. possible aspiration 9. pneumonia 10. possible pulmonary edema with cxr and BNP PLAN care noted IV antibiotics noted and changes reviewed cultures reviewed respiratory care as outlined Ventilatory support noted reviewed meds supportive care suction as needed try to wean daily- orders in place and monitor oxygen therapy prognosis guarded aspiration precautions elevate head feeds consider diuresis medications/laboratory data/nursing notes/ICU care reviewed in detail note reviewed and edited care discussed with RN and RT ICU time spent 38 minutes Critical Care - Subjective Interval Events: events noted d/w other MDs weaning orders in place elevated BNP ROS Limited/Unobtainable: Yes Condition: critical EKG Rhythm: Sinus Rhythm Residuals: minimal Tube Feeding Tolerated: yes I&O: Intake and Output 02/07/18 02/08/18 19:00 07:00 Intake Total 410 ml 550 ml Output Total 1485 ml 465 ml Balance -1075 ml 85 ml Intake Oral 0 ml 0 ml IV Total 410 ml 510 ml Other 40 ml Output Urine Total 1485 ml 465 ml # Bowel Movements 103 2 Critical Care - Objective CXR: pneumonia increasing edema ET-Tube: 7.5 ET Position: 23 Last 24 Hour Vital Signs Date Time Temp Pulse Resp B/P (MAP) Pulse Ox O2 Delivery O2 Flow Rate FiO2 02/08/18 04:53 74 18 40 02/08/18 04:00 40 02/08/18 03:04 61 02/08/18 03:00 63 18 161/60 100 Mechanical Ventilator 40 02/08/18 02:58 57 18 40 02/08/18 02:00 59 18 153/56 100 Mechanical Ventilator 40 02/08/18 01:53 66 18 40 02/08/18 01:53 68 18 40 02/08/18 01:00 64 18 137/53 100 Mechanical Ventilator 40 02/08/18 00:00 40 02/08/18 00:00 99.0 68 18 157/63 100 Mechanical Ventilator 40 99.0 02/07/18 23:13 65 02/07/18 23:00 65 18 142/52 100 Mechanical Ventilator 40 02/07/18 22:57 66 18 40 02/07/18 22:00 68 18 153/56 100 Mechanical Ventilator 40 02/07/18 21:29 60 18 40 02/07/18 21:00 60 18 111/45 100 Mechanical Ventilator 40 02/07/18 20:00 98.2 69 18 158/57 100 Mechanical Ventilator 40 98.2 02/07/18 20:00 40 02/07/18 19:17 61 02/07/18 19:10 64 18 40 02/07/18 19:00 64 18 103/45 100 Mechanical Ventilator 40 02/07/18 18:00 74 18 107/43 100 Mechanical Ventilator 40 02/07/18 17:33 98.7 02/07/18 17:03 98.6 02/07/18 17:00 80 18 154/54 100 Mechanical Ventilator 40 02/07/18 16:00 77 02/07/18 16:00 98.7 80 19 152/66 100 Mechanical Ventilator 40 98.7 02/07/18 16:00 40 02/07/18 15:00 62 18 138/61 100 Mechanical Ventilator 40 02/07/18 14:30 75 18 40 02/07/18 14:00 71 18 158/72 100 Mechanical Ventilator 40 02/07/18 13:26 73 19 40 02/07/18 13:00 98.9 70 18 156/61 100 Mechanical Ventilator 40 98.9 02/07/18 12:00 67 02/07/18 12:00 73 18 152/54 100 Mechanical Ventilator 40 02/07/18 12:00 40 02/07/18 11:11 72 18 40 02/07/18 11:00 78 18 152/54 100 Mechanical Ventilator 40 02/07/18 10:00 72 18 149/56 100 Mechanical Ventilator 40 02/07/18 09:00 67 18 149/56 100 Mechanical Ventilator 40 02/07/18 08:41 66 18 40 02/07/18 08:00 98.8 70 17 134/55 100 Mechanical Ventilator 40 98.8 02/07/18 08:00 40 02/07/18 08:00 62 02/07/18 07:09 67 20 40 02/07/18 07:00 70 18 133/54 100 Mechanical Ventilator 40 Labs: Labs Test 02/06/18 04:00 02/07/18 04:00 02/07/18 06:00 02/07/18 17:15 White Blood Count 12.0 K/UL (4.8-10.8) 9.8 K/UL (4.8-10.8) Red Blood Count 2.95 M/UL (4.20-5.40) 3.07 M/UL (4.20-5.40) Hemoglobin 10.4 G/DL (12.0-16.0) 11.2 G/DL (12.0-16.0) Hematocrit 29.5 % (37.0-47.0) 31.0 % (37.0-47.0) Mean Corpuscular Volume 100 FL (80-99) 101 FL (80-99) Mean Corpuscular Hemoglobin 35.2 PG (27.0-31.0) 36.4 PG (27.0-31.0) Mean Corpuscular Hemoglobin Concent 35.2 G/DL (32.0-36.0) 36.0 G/DL (32.0-36.0) Red Cell Distribution Width 11.9 % (11.6-14.8) 12.0 % (11.6-14.8) Platelet Count 137 K/UL (150-450) 118 K/UL (150-450) Mean Platelet Volume 10.0 FL (6.5-10.1) 10.7 FL (6.5-10.1) Neutrophils (%) (Auto) 67.2 % (45.0-75.0) 63.0 % (45.0-75.0) Lymphocytes (%) (Auto) 17.3 % (20.0-45.0) 21.3 % (20.0-45.0) Monocytes (%) (Auto) 12.2 % (1.0-10.0) 11.7 % (1.0-10.0) Eosinophils (%) (Auto) 1.5 % (0.0-3.0) 3.2 % (0.0-3.0) Basophils (%) (Auto) 1.9 % (0.0-2.0) 0.7 % (0.0-2.0) Sodium Level 140 MMOL/L (136-145) 139 MMOL/L (136-145) Potassium Level 2.9 MMOL/L (3.5-5.1) 3.4 MMOL/L (3.5-5.1) Chloride Level 108 MMOL/L (98-107) 109 MMOL/L (98-107) Carbon Dioxide Level 20 MMOL/L (21-32) 20 MMOL/L (21-32) Anion Gap 12 mmol/L (5-15) 10 mmol/L (5-15) Blood Urea Nitrogen 12 mg/dL (7-18) 6 mg/dL (7-18) Creatinine 0.7 MG/DL (0.55-1.30) 0.7 MG/DL (0.55-1.30) Estimat Glomerular Filtration Rate mL/min (>60) mL/min (>60) Glucose Level 133 MG/DL (74-106) 111 MG/DL (74-106) Calcium Level 8.0 MG/DL (8.5-10.1) 8.1 MG/DL (8.5-10.1) Total Bilirubin 0.7 MG/DL (0.2-1.0) 0.7 MG/DL (0.2-1.0) Aspartate Amino Transf (AST/SGOT) 27 U/L (15-37) 20 U/L (15-37) Alanine Aminotransferase (ALT/SGPT) 15 U/L (12-78) 11 U/L (12-78) Alkaline Phosphatase 97 U/L (46-116) 89 U/L (46-116) Total Protein 6.8 G/DL (6.4-8.2) 6.9 G/DL (6.4-8.2) Albumin 2.6 G/DL (3.4-5.0) 2.4 G/DL (3.4-5.0) Globulin 4.2 g/dL 4.5 g/dL Albumin/Globulin Ratio 0.6 (1.0-2.7) 0.5 (1.0-2.7) Arterial Blood pH 7.466 (7.350-7.450) Arterial Blood Partial Pressure CO2 27.0 mmHg (35.0-45.0) Arterial Blood Partial Pressure O2 133.0 mmHg (75.0-100.0) Arterial Blood HCO3 19.0 mmol/L (22.0-26.0) Arterial Blood Oxygen Saturation 98.4 % (92.0-98.0) Arterial Blood Base Excess -3.6 Jose Luis Test Positive Magnesium Level 1.9 MG/DL (1.8-2.4) Vancomycin Level Trough 6.6 ug/mL (5.0-12.0) Test 02/08/18 04:10 White Blood Count 7.6 K/UL (4.8-10.8) Red Blood Count 3.12 M/UL (4.20-5.40) Hemoglobin 11.0 G/DL (12.0-16.0) Hematocrit 31.5 % (37.0-47.0) Mean Corpuscular Volume 101 FL (80-99) Mean Corpuscular Hemoglobin 35.2 PG (27.0-31.0) Mean Corpuscular Hemoglobin Concent 34.8 G/DL (32.0-36.0) Red Cell Distribution Width 12.0 % (11.6-14.8) Platelet Count 115 K/UL (150-450) Mean Platelet Volume 9.8 FL (6.5-10.1) Neutrophils (%) (Auto) 56.7 % (45.0-75.0) Lymphocytes (%) (Auto) 25.0 % (20.0-45.0) Monocytes (%) (Auto) 10.9 % (1.0-10.0) Eosinophils (%) (Auto) 6.4 % (0.0-3.0) Basophils (%) (Auto) 1.0 % (0.0-2.0) Sodium Level 143 MMOL/L (136-145) Potassium Level 3.5 MMOL/L (3.5-5.1) Chloride Level 109 MMOL/L (98-107) Carbon Dioxide Level 20 MMOL/L (21-32) Anion Gap 14 mmol/L (5-15) Blood Urea Nitrogen 5 mg/dL (7-18) Creatinine 0.5 MG/DL (0.55-1.30) Estimat Glomerular Filtration Rate mL/min (>60) Glucose Level 90 MG/DL (74-106) Calcium Level 8.2 MG/DL (8.5-10.1) Magnesium Level 1.8 MG/DL (1.8-2.4) Total Bilirubin 0.7 MG/DL (0.2-1.0) Aspartate Amino Transf (AST/SGOT) 27 U/L (15-37) Alanine Aminotransferase (ALT/SGPT) 10 U/L (12-78) Alkaline Phosphatase 82 U/L (46-116) Pro-B-Type Natriuretic Peptide 2432 pg/mL (0-125) Total Protein 6.5 G/DL (6.4-8.2) Albumin 2.3 G/DL (3.4-5.0) Globulin 4.2 g/dL Albumin/Globulin Ratio 0.5 (1.0-2.7) Phenytoin (Dilantin) Level 32.3 ug/mL (10-20) Objective: GENERAL: A well-developed female, sedated at present. without change HEENT: Negative. NECK: Supple. The patient is orally intubated. No jugular venous distention. LUNGS: Moderate air entry. no wheezes. some rhonchi which appear worse overall. CARDIAC: Normal S1, S2. RRR Soft systolic murmur heard at the parasternal border. No rubs or gallops. ABDOMEN: Soft, nontender, and nondistended. no distention; feeding tube in place EXTREMITIES: No cyanosis, clubbing, or edema. NEUROLOGICAL: Withdrawn, but sedated at present. SKIN: Noted and reviewed. reviewed and edited BRANDY COLLIER Feb 08, 2018 06:25
[2018-02-08] MEDS: Vancomycin 750mg/NS 250ml IVPB SCH ×2 (08:18→19:45)
[2018-02-08] MEDS: levETIRAcetam 500mg/5ml Liquid NG SCH ×2 (08:19→20:52)
[2018-02-08] MEDS: Heparin 5000 units/ml inj SUBQ SCH ×2 (08:24→20:53)
--- NOTE | 2018-02-08 09:29 | General Progress Note ---
Assessment/Plan Problem List: (1) Respiratory distress ICD Codes: R06.03 - Acute respiratory distress SNOMED: 349127735 (2) Atrial fibrillation ICD Codes: I48.91 - Unspecified atrial fibrillation SNOMED: 06242798 Qualifiers: Qualified Codes: I48.2 - Chronic atrial fibrillation (3) Respiratory failure ICD Codes: J96.90 - Respiratory failure, unspecified, unspecified whether with hypoxia or hypercapnia SNOMED: 959829633 Qualifiers: Qualified Codes: J96.01 - Acute respiratory failure with hypoxia; J96.02 - Acute respiratory failure with hypercapnia (4) UTI (urinary tract infection) ICD Codes: N39.0 - Urinary tract infection, site not specified SNOMED: 79144177 Qualifiers: Qualified Codes: N30.00 - Acute cystitis without hematuria Assessment/Plan iv abx per ID vent resp rx gt feeds hold dilantin- monitor ivf Subjective ROS Limited/Unobtainable: No Constitutional: Reports: malaise, weakness HEENT: Reports: no symptoms Cardiovascular: Reports: no symptoms Respiratory: Reports: shortness of breath Gastrointestinal/Abdominal: Reports: difficulty swallowing Genitourinary: Reports: no symptoms Neurologic/Psychiatric: Reports: pre-existing deficit, seizure Endocrine: Reports: no symptoms Hematologic/Lymphatic: Reports: anemia Allergies: Coded Allergies: PENICILLINS (Verified Allergy, Unknown, 02/04/18) SULFA (SULFONAMIDE ANTIBIOTICS) (Verified Allergy, Unknown, 02/04/18) All Systems: reviewed and negative except above Subjective no events. stable on the vent. awake. no fevers. Objective Last 24 Hour Vital Signs Date Time Temp Pulse Resp B/P (MAP) Pulse Ox O2 Delivery O2 Flow Rate FiO2 02/08/18 09:03 78 18 40 02/08/18 08:00 98.6 76 23 158/64 100 Mechanical Ventilator 40 98.6 02/08/18 08:00 40 02/08/18 07:00 69 18 139/56 100 Mechanical Ventilator 40 02/08/18 06:40 67 18 40 02/08/18 06:00 69 18 160/59 100 Mechanical Ventilator 40 02/08/18 05:00 65 18 129/50 100 Mechanical Ventilator 40 02/08/18 04:53 74 18 40 02/08/18 04:30 75 18 158/58 100 Mechanical Ventilator 40 02/08/18 04:00 40 02/08/18 04:00 98.6 74 18 172/65 100 Mechanical Ventilator 40 98.6 02/08/18 03:04 61 02/08/18 03:00 63 18 161/60 100 Mechanical Ventilator 40 02/08/18 02:58 57 18 40 02/08/18 02:00 59 18 153/56 100 Mechanical Ventilator 40 02/08/18 01:53 66 18 40 02/08/18 01:53 68 18 40 02/08/18 01:00 64 18 137/53 100 Mechanical Ventilator 40 02/08/18 00:00 40 02/08/18 00:00 99.0 68 18 157/63 100 Mechanical Ventilator 40 99.0 02/07/18 23:13 65 02/07/18 23:00 65 18 142/52 100 Mechanical Ventilator 40 02/07/18 22:57 66 18 40 02/07/18 22:00 68 18 153/56 100 Mechanical Ventilator 40 02/07/18 21:29 60 18 40 02/07/18 21:00 60 18 111/45 100 Mechanical Ventilator 40 02/07/18 20:00 98.2 69 18 158/57 100 Mechanical Ventilator 40 98.2 02/07/18 20:00 40 02/07/18 19:17 61 02/07/18 19:10 64 18 40 02/07/18 19:00 64 18 103/45 100 Mechanical Ventilator 40 02/07/18 18:00 74 18 107/43 100 Mechanical Ventilator 40 02/07/18 17:33 98.7 02/07/18 17:03 98.6 02/07/18 17:00 80 18 154/54 100 Mechanical Ventilator 40 02/07/18 16:00 77 02/07/18 16:00 98.7 80 19 152/66 100 Mechanical Ventilator 40 98.7 02/07/18 16:00 40 02/07/18 15:00 62 18 138/61 100 Mechanical Ventilator 40 02/07/18 14:30 75 18 40 02/07/18 14:00 71 18 158/72 100 Mechanical Ventilator 40 02/07/18 13:26 73 19 40 02/07/18 13:00 98.9 70 18 156/61 100 Mechanical Ventilator 40 98.9 02/07/18 12:00 67 02/07/18 12:00 73 18 152/54 100 Mechanical Ventilator 40 02/07/18 12:00 40 02/07/18 11:11 72 18 40 02/07/18 11:00 78 18 152/54 100 Mechanical Ventilator 40 02/07/18 10:00 72 18 149/56 100 Mechanical Ventilator 40 Intake and Output 02/07/18 02/08/18 19:00 07:00 Intake Total 410 ml 1450 ml Output Total 1485 ml 755 ml Balance -1075 ml 695 ml Intake Oral 0 ml 0 ml IV Total 410 ml 1410 ml Other 40 ml Output Urine Total 1485 ml 705 ml Stool Total 50 ml # Bowel Movements 103 2 Laboratory Tests 02/07/18 17:15: Vancomycin Level Trough 6.6 02/08/18 04:10: White Blood Count 7.6, Red Blood Count 3.12L, Hemoglobin 11.0L, Hematocrit 31.5L , Mean Corpuscular Volume 101H, Mean Corpuscular Hemoglobin 35.2H, Mean Corpuscular Hemoglobin Concent 34.8, Red Cell Distribution Width 12.0, Platelet Count 115L, Mean Platelet Volume 9.8, Neutrophils (%) (Auto) 56.7, Lymphocytes ( %) (Auto) 25.0, Monocytes (%) (Auto) 10.9H, Eosinophils (%) (Auto) 6.4H, Basophils (%) (Auto) 1.0, Sodium Level 143, Potassium Level 3.5, Chloride Level 109H, Carbon Dioxide Level 20L, Anion Gap 14, Blood Urea Nitrogen 5L, Creatinine 0.5L, Estimat Glomerular Filtration Rate , Glucose Level 90, Calcium Level 8.2L, Magnesium Level 1.8, Total Bilirubin 0.7, Aspartate Amino Transf ( AST/SGOT) 27, Alanine Aminotransferase (ALT/SGPT) 10L, Alkaline Phosphatase 82, Pro-B-Type Natriuretic Peptide 2432H, Total Protein 6.5, Albumin 2.3L, Globulin 4.2, Albumin/Globulin Ratio 0.5L, Phenytoin (Dilantin) Level 32.3*H Height (Feet): 5 Height (Inches): 6.00 Weight (Pounds): 177 Objective General Appearance: WD/WN, lethargic, confused Neck: supple Cardiovascular: regular rhythm Respiratory/Chest: rhonchi - bilaterally Abdomen: normal bowel sounds, non tender, soft, no organomegaly Edema: no edema noted Arm (L), no edema noted Arm (R), no edema noted Leg (L), no edema noted Leg (R), no edema noted Pedal (L), no edema noted Pedal (R), no edema noted Generalized LAURA ABRAMS Feb 08, 2018 09:29
[2018-02-08] MEDS: Meropenem 1 GM in NS 110 ML IVPB SCH ×2 (09:34→20:52)
[2018-02-08] MEDS: Pantoprazole Inj IVP SCH (09:34)
--- NOTE | 2018-02-08 10:25 | Infectious Diseases Prog Note ---
Assessment/Plan Assessment/Plan A Aspiration pneumonia UTI with Klebsiella ESBL Respiratory failure COPD Dementia P: Continue vancomycin & Meropenem Will f/u cultures Subjective ROS Limited/Unobtainable: Yes Neurologic: Reports: confusion, other - sedated on restraint Allergies: Coded Allergies: PENICILLINS (Verified Allergy, Unknown, 02/04/18) SULFA (SULFONAMIDE ANTIBIOTICS) (Verified Allergy, Unknown, 02/04/18) Objective Vital Signs Last 24 Hour Vital Signs Date Time Temp Pulse Resp B/P (MAP) Pulse Ox O2 Delivery O2 Flow Rate FiO2 02/08/18 09:03 78 18 40 02/08/18 08:00 71 02/08/18 08:00 98.6 76 23 158/64 100 Mechanical Ventilator 40 98.6 02/08/18 08:00 40 02/08/18 07:00 69 18 139/56 100 Mechanical Ventilator 40 02/08/18 06:40 67 18 40 02/08/18 06:00 69 18 160/59 100 Mechanical Ventilator 40 02/08/18 05:00 65 18 129/50 100 Mechanical Ventilator 40 02/08/18 04:53 74 18 40 02/08/18 04:30 75 18 158/58 100 Mechanical Ventilator 40 02/08/18 04:00 40 02/08/18 04:00 98.6 74 18 172/65 100 Mechanical Ventilator 40 98.6 02/08/18 03:04 61 02/08/18 03:00 63 18 161/60 100 Mechanical Ventilator 40 02/08/18 02:58 57 18 40 02/08/18 02:00 59 18 153/56 100 Mechanical Ventilator 40 02/08/18 01:53 66 18 40 02/08/18 01:53 68 18 40 02/08/18 01:00 64 18 137/53 100 Mechanical Ventilator 40 02/08/18 00:00 40 02/08/18 00:00 99.0 68 18 157/63 100 Mechanical Ventilator 40 99.0 02/07/18 23:13 65 02/07/18 23:00 65 18 142/52 100 Mechanical Ventilator 40 02/07/18 22:57 66 18 40 02/07/18 22:00 68 18 153/56 100 Mechanical Ventilator 40 02/07/18 21:29 60 18 40 02/07/18 21:00 60 18 111/45 100 Mechanical Ventilator 40 02/07/18 20:00 98.2 69 18 158/57 100 Mechanical Ventilator 40 98.2 02/07/18 20:00 40 02/07/18 19:17 61 02/07/18 19:10 64 18 40 02/07/18 19:00 64 18 103/45 100 Mechanical Ventilator 40 02/07/18 18:00 74 18 107/43 100 Mechanical Ventilator 40 02/07/18 17:33 98.7 02/07/18 17:03 98.6 02/07/18 17:00 80 18 154/54 100 Mechanical Ventilator 40 02/07/18 16:00 77 02/07/18 16:00 98.7 80 19 152/66 100 Mechanical Ventilator 40 98.7 02/07/18 16:00 40 02/07/18 15:00 62 18 138/61 100 Mechanical Ventilator 40 02/07/18 14:30 75 18 40 02/07/18 14:00 71 18 158/72 100 Mechanical Ventilator 40 02/07/18 13:26 73 19 40 02/07/18 13:00 98.9 70 18 156/61 100 Mechanical Ventilator 40 98.9 02/07/18 12:00 67 02/07/18 12:00 73 18 152/54 100 Mechanical Ventilator 40 02/07/18 12:00 40 02/07/18 11:11 72 18 40 02/07/18 11:00 78 18 152/54 100 Mechanical Ventilator 40 Height (Feet): 5 Height (Inches): 6.00 Weight (Pounds): 177 HEENT: other - orally intubated Respiratory/Chest: other - coarse sounds, on ventilator Cardiovascular: normal rate, other - left subclavian central line Abdomen: soft, non tender, other - GT Extremities: other - trace edema Neurologic/Psychiatric: unresponsiveness, other - sedated Microbiology Date/Time Source Procedure Growth Status 02/07/18 07:30 Sputum Gram Stain - Final Resulted 02/07/18 07:30 Sputum Sputum Culture - Preliminary NO GROWTH Resulted Laboratory Tests Test 02/07/18 17:15 02/08/18 04:10 Vancomycin Level Trough 6.6 ug/mL (5.0-12.0) White Blood Count 7.6 K/UL (4.8-10.8) Red Blood Count 3.12 M/UL (4.20-5.40) L Hemoglobin 11.0 G/DL (12.0-16.0) L Hematocrit 31.5 % (37.0-47.0) L Mean Corpuscular Volume 101 FL (80-99) H Mean Corpuscular Hemoglobin 35.2 PG (27.0-31.0) H Mean Corpuscular Hemoglobin Concent 34.8 G/DL (32.0-36.0) Red Cell Distribution Width 12.0 % (11.6-14.8) Platelet Count 115 K/UL (150-450) L Mean Platelet Volume 9.8 FL (6.5-10.1) Neutrophils (%) (Auto) 56.7 % (45.0-75.0) Lymphocytes (%) (Auto) 25.0 % (20.0-45.0) Monocytes (%) (Auto) 10.9 % (1.0-10.0) H Eosinophils (%) (Auto) 6.4 % (0.0-3.0) H Basophils (%) (Auto) 1.0 % (0.0-2.0) Sodium Level 143 MMOL/L (136-145) Potassium Level 3.5 MMOL/L (3.5-5.1) Chloride Level 109 MMOL/L (98-107) H Carbon Dioxide Level 20 MMOL/L (21-32) L Anion Gap 14 mmol/L (5-15) Blood Urea Nitrogen 5 mg/dL (7-18) L Creatinine 0.5 MG/DL (0.55-1.30) L Estimat Glomerular Filtration Rate mL/min (>60) Glucose Level 90 MG/DL (74-106) Calcium Level 8.2 MG/DL (8.5-10.1) L Magnesium Level 1.8 MG/DL (1.8-2.4) Total Bilirubin 0.7 MG/DL (0.2-1.0) Aspartate Amino Transf (AST/SGOT) 27 U/L (15-37) Alanine Aminotransferase (ALT/SGPT) 10 U/L (12-78) L Alkaline Phosphatase 82 U/L (46-116) Pro-B-Type Natriuretic Peptide 2432 pg/mL (0-125) H Total Protein 6.5 G/DL (6.4-8.2) Albumin 2.3 G/DL (3.4-5.0) L Globulin 4.2 g/dL Albumin/Globulin Ratio 0.5 (1.0-2.7) L Phenytoin (Dilantin) Level 32.3 ug/mL (10-20) *H Current Medications Medications (Trade) Dose Ordered Sig/Singh Route PRN Reason Start Time Stop Time Status Last Admin Dose Admin Acetaminophen (Tylenol) 650 mg Q4H PRN GT Mild Pain/Temp > 100.5 02/06/18 15:30 03/08/18 15:29 02/07/18 17:03 Chlorhexidine Gluconate (Azra-Hex 2%) 1 applic DAILY@1999 TOPIC 02/07/18 20:00 03/09/18 19:59 02/07/18 19:50 Heparin Sodium (Porcine) (Heparin 5000 units/ml) 5,000 units EVERY 12 HOURS SUBQ 02/04/18 21:00 03/06/18 20:59 02/08/18 08:24 Levetiracetam (Keppra) 500 mg Q12HR NG 02/05/18 09:00 03/07/18 08:59 02/08/18 08:19 Lorazepam (Ativan 2mg/ml 1ml) 1 mg Q2H PRN IV For Anxiety 02/04/18 17:00 02/11/18 16:59 02/08/18 10:02 Meropenem 1 gm/ Sodium Chloride 110 ml @ 220 mls/hr Q12HR IVPB 02/07/18 12:00 02/12/18 11:59 02/08/18 09:34 Pantoprazole (Protonix) 40 mg DAILY IVP 02/05/18 12:00 03/07/18 11:59 02/08/18 09:34 Sodium Chloride 1,000 ml @ 100 mls/hr Q10H IV 02/04/18 17:15 03/06/18 17:14 02/08/18 02:14 Vancomycin HCl (Vanco rx to dose) 1 ea DAILY PRN MISC Per rx protocol 02/04/18 17:00 03/06/18 16:59 Vancomycin/Sodium Chloride 250 ml @ 166.667 mls/hr Q12HR@799,1999 IVPB 02/07/18 20:00 02/12/18 19:59 02/08/18 08:18 DEE CORLEY Feb 08, 2018 10:25
[2018-02-08 12:02] LABS: BASOPHILS % (AUTO) 0.8 % (0.0-2.0); EOSINOPHILS % (AUTO) 6.6 % (0.0-3.0); HEMOGLOBIN 9.6 G/DL (12.0-16.0); LYMPHOCYTES % (AUTO) 19.1 % (20.0-45.0); MEAN CORPUSCULAR VOLUME 99 FL (80-99); MONOCYTES % (AUTO) 11.4 % (1.0-10.0); NEUTROPHILS % (AUTO) 62.2 % (45.0-75.0); PLATELET COUNT 120 K/UL (150-450); RED BLOOD COUNT 2.73 M/UL (4.20-5.40); RED CELL DISTRIBUTION WIDTH 11.5 % (11.6-14.8); WHITE BLOOD COUNT 6.5 K/UL (4.8-10.8)
[2018-02-08 12:22] LABS: ALANINE AMINOTRANSFERASE 9 U/L (12-78); ALBUMIN 2.1 G/DL (3.4-5.0); ALBUMIN/GLOBULIN RATIO 0.6 (1.0-2.7); ALKALINE PHOSPHATASE 74 U/L (46-116); ANION GAP 10 mmol/L (5-15); ASPARTATE AMINO TRANSFERASE 15 U/L (15-37); BILIRUBIN,TOTAL 0.5 MG/DL (0.2-1.0); BLOOD UREA NITROGEN 4 mg/dL (7-18); CALCIUM 7.9 MG/DL (8.5-10.1); CARBON DIOXIDE 22 MMOL/L (21-32); CHLORIDE 110 MMOL/L (98-107); CREATININE 0.5 MG/DL (0.55-1.30); SODIUM 143 MMOL/L (136-145)
[2018-02-08 12:28] LABS: POTASSIUM 2.7 MMOL/L (3.5-5.1)
--- NOTE | 2018-02-08 15:53 | Consultation ---
History of Present Illness General Date patient seen: Feb 07, 2018 Chief Complaint: Dyspnea/Respdistress Reason for Consultation: Line access Present Illness HPI 87F with multiple medical comorbidities came in through ED for respiratory distress. Intubated in ED and transferred to ICU for care and management. Hypotensive at times, tachycardic, on Abx/meds/fluids. Peripheral edema and difficulty with obtaining peripheral access. 4 trained ICU nurses with vein finder / clinical experience were unable to establish good peripheral access. surgery called to central venous access evaluation and placement. Allergies: Coded Allergies: PENICILLINS (Verified Allergy, Unknown, 02/04/18) SULFA (SULFONAMIDE ANTIBIOTICS) (Verified Allergy, Unknown, 02/04/18) Medication History Scheduled Aspirin* (Aspirin*), 81 MG GT DAILY, (Reported) Atorvastatin Calcium* (Lipitor*), 10 MG GT BEDTIME, (Reported) Scheduled PRN Clonidine Hcl* (Catapres*), 0.1 MG ORAL EVERY 6 HOURS PRN for For High Blood Pressure, (Reported) Patient History History Provided By: Medical Record, PMD Healthcare decision maker Gato Mello Resuscitation status Full Code Advanced Directive on File No Past Medical/Surgical History Past Medical/Surgical History: (1) Dyspnea (2) Respiratory distress (3) Atrial fibrillation (4) Respiratory failure (5) UTI (urinary tract infection) Review of Systems ROS Narrative cannot obtain given patients medical condition Physical Exam General Appearance: other - intubated, on vent, sedated Lines, tubes and drains: other - 1 small peripheral line HEENT: mucous membranes moist Neck: normal inspection Respiratory/Chest: on vent Cardiovascular/Chest: tachycardia Abdomen: soft, no organomegaly, abnormal bowel sounds Extremities: moderate edema Skin Exam: normal pigmentation Neurologic: unresponsiveness Last 24 Hour Vital Signs Date Time Temp Pulse Resp B/P (MAP) Pulse Ox O2 Delivery O2 Flow Rate FiO2 02/08/18 15:00 79 19 148/67 100 Mechanical Ventilator 40 02/08/18 14:50 82 22 40 02/08/18 14:00 80 18 159/62 100 Mechanical Ventilator 40 02/08/18 13:00 70 18 164/64 100 Mechanical Ventilator 40 02/08/18 12:37 69 18 40 02/08/18 12:00 69 02/08/18 12:00 40 02/08/18 12:00 98.9 71 18 171/57 100 Mechanical Ventilator 40 98.9 02/08/18 11:00 66 18 142/47 100 Mechanical Ventilator 40 02/08/18 10:43 68 18 40 02/08/18 10:00 78 18 161/57 100 Mechanical Ventilator 40 02/08/18 09:03 78 18 40 02/08/18 09:00 76 18 166/66 100 Mechanical Ventilator 40 02/08/18 08:00 71 02/08/18 08:00 98.6 76 23 158/64 100 Mechanical Ventilator 40 98.6 02/08/18 08:00 40 02/08/18 07:00 69 18 139/56 100 Mechanical Ventilator 40 02/08/18 06:40 67 18 40 02/08/18 06:00 69 18 160/59 100 Mechanical Ventilator 40 02/08/18 05:00 65 18 129/50 100 Mechanical Ventilator 40 02/08/18 04:53 74 18 40 02/08/18 04:30 75 18 158/58 100 Mechanical Ventilator 40 02/08/18 04:00 40 02/08/18 04:00 98.6 74 18 172/65 100 Mechanical Ventilator 40 98.6 02/08/18 03:04 61 02/08/18 03:00 63 18 161/60 100 Mechanical Ventilator 40 02/08/18 02:58 57 18 40 02/08/18 02:00 59 18 153/56 100 Mechanical Ventilator 40 02/08/18 01:53 66 18 40 02/08/18 01:53 68 18 40 02/08/18 01:00 64 18 137/53 100 Mechanical Ventilator 40 02/08/18 00:00 40 02/08/18 00:00 99.0 68 18 157/63 100 Mechanical Ventilator 40 99.0 02/07/18 23:13 65 02/07/18 23:00 65 18 142/52 100 Mechanical Ventilator 40 02/07/18 22:57 66 18 40 02/07/18 22:00 68 18 153/56 100 Mechanical Ventilator 40 02/07/18 21:29 60 18 40 02/07/18 21:00 60 18 111/45 100 Mechanical Ventilator 40 02/07/18 20:00 98.2 69 18 158/57 100 Mechanical Ventilator 40 98.2 02/07/18 20:00 40 02/07/18 19:17 61 02/07/18 19:10 64 18 40 02/07/18 19:00 64 18 103/45 100 Mechanical Ventilator 40 02/07/18 18:00 74 18 107/43 100 Mechanical Ventilator 40 02/07/18 17:33 98.7 02/07/18 17:03 98.6 02/07/18 17:00 80 18 154/54 100 Mechanical Ventilator 40 02/07/18 16:00 77 02/07/18 16:00 98.7 80 19 152/66 100 Mechanical Ventilator 40 98.7 02/07/18 16:00 40 Intake and Output 02/07/18 02/08/18 19:00 07:00 Intake Total 410 ml 1450 ml Output Total 1485 ml 755 ml Balance -1075 ml 695 ml Intake Oral 0 ml 0 ml IV Total 410 ml 1410 ml Other 40 ml Output Urine Total 1485 ml 705 ml Stool Total 50 ml # Bowel Movements 103 2 Laboratory Tests Test 02/07/18 17:15 02/08/18 04:10 02/08/18 11:45 Vancomycin Level Trough 6.6 ug/mL (5.0-12.0) White Blood Count 7.6 K/UL (4.8-10.8) 6.5 K/UL (4.8-10.8) Red Blood Count 3.12 M/UL (4.20-5.40) L 2.73 M/UL (4.20-5.40) L Hemoglobin 11.0 G/DL (12.0-16.0) L 9.6 G/DL (12.0-16.0) L Hematocrit 31.5 % (37.0-47.0) L 27.0 % (37.0-47.0) L Mean Corpuscular Volume 101 FL (80-99) H 99 FL (80-99) Mean Corpuscular Hemoglobin 35.2 PG (27.0-31.0) H 35.2 PG (27.0-31.0) H Mean Corpuscular Hemoglobin Concent 34.8 G/DL (32.0-36.0) 35.6 G/DL (32.0-36.0) Red Cell Distribution Width 12.0 % (11.6-14.8) 11.5 % (11.6-14.8) L Platelet Count 115 K/UL (150-450) L 120 K/UL (150-450) L Mean Platelet Volume 9.8 FL (6.5-10.1) 9.6 FL (6.5-10.1) Neutrophils (%) (Auto) 56.7 % (45.0-75.0) 62.2 % (45.0-75.0) Lymphocytes (%) (Auto) 25.0 % (20.0-45.0) 19.1 % (20.0-45.0) L Monocytes (%) (Auto) 10.9 % (1.0-10.0) H 11.4 % (1.0-10.0) H Eosinophils (%) (Auto) 6.4 % (0.0-3.0) H 6.6 % (0.0-3.0) H Basophils (%) (Auto) 1.0 % (0.0-2.0) 0.8 % (0.0-2.0) Sodium Level 143 MMOL/L (136-145) 143 MMOL/L (136-145) Potassium Level 3.5 MMOL/L (3.5-5.1) 2.7 MMOL/L (3.5-5.1) *L Chloride Level 109 MMOL/L (98-107) H 110 MMOL/L (98-107) H Carbon Dioxide Level 20 MMOL/L (21-32) L 22 MMOL/L (21-32) Anion Gap 14 mmol/L (5-15) 10 mmol/L (5-15) Blood Urea Nitrogen 5 mg/dL (7-18) L 4 mg/dL (7-18) L Creatinine 0.5 MG/DL (0.55-1.30) L 0.5 MG/DL (0.55-1.30) L Estimat Glomerular Filtration Rate mL/min (>60) mL/min (>60) Glucose Level 90 MG/DL (74-106) 94 MG/DL (74-106) Calcium Level 8.2 MG/DL (8.5-10.1) L 7.9 MG/DL (8.5-10.1) L Magnesium Level 1.8 MG/DL (1.8-2.4) Total Bilirubin 0.7 MG/DL (0.2-1.0) 0.5 MG/DL (0.2-1.0) Aspartate Amino Transf (AST/SGOT) 27 U/L (15-37) 15 U/L (15-37) Alanine Aminotransferase (ALT/SGPT) 10 U/L (12-78) L 9 U/L (12-78) L Alkaline Phosphatase 82 U/L (46-116) 74 U/L (46-116) Pro-B-Type Natriuretic Peptide 2432 pg/mL (0-125) H Total Protein 6.5 G/DL (6.4-8.2) 5.9 G/DL (6.4-8.2) L Albumin 2.3 G/DL (3.4-5.0) L 2.1 G/DL (3.4-5.0) L Globulin 4.2 g/dL 3.8 g/dL Albumin/Globulin Ratio 0.5 (1.0-2.7) L 0.6 (1.0-2.7) L Phenytoin (Dilantin) Level 32.3 ug/mL (10-20) *H 30.7 ug/mL (10-20) *H Height (Feet): 5 Height (Inches): 6.00 Weight (Pounds): 177 Medications Current Medications Medications (Trade) Dose Ordered Sig/Singh Route PRN Reason Start Time Stop Time Status Last Admin Dose Admin Acetaminophen (Tylenol) 650 mg Q4H PRN GT Mild Pain/Temp > 100.5 02/06/18 15:30 03/08/18 15:29 02/07/18 17:03 Chlorhexidine Gluconate (Azra-Hex 2%) 1 applic DAILY@1999 TOPIC 02/07/18 20:00 03/09/18 19:59 02/07/18 19:50 Heparin Sodium (Porcine) (Heparin 5000 units/ml) 5,000 units EVERY 12 HOURS SUBQ 02/04/18 21:00 03/06/18 20:59 02/08/18 08:24 Levetiracetam (Keppra) 500 mg Q12HR NG 02/05/18 09:00 03/07/18 08:59 02/08/18 08:19 Lorazepam (Ativan 2mg/ml 1ml) 1 mg Q2H PRN IV For Anxiety 02/04/18 17:00 02/11/18 16:59 02/08/18 10:02 Meropenem 1 gm/ Sodium Chloride 110 ml @ 220 mls/hr Q12HR IVPB 02/07/18 12:00 02/12/18 11:59 02/08/18 09:34 Pantoprazole (Protonix) 40 mg DAILY IVP 02/05/18 12:00 03/07/18 11:59 02/08/18 09:34 Potassium Chloride (K-Dur) 40 meq ONCE ONCE GT 02/08/18 18:00 02/08/18 18:01 Sodium Chloride 1,000 ml @ 50 mls/hr Q20H IV 02/08/18 14:00 03/06/18 17:14 02/08/18 13:59 Vancomycin HCl (Vanco rx to dose) 1 ea DAILY PRN MISC Per rx protocol 02/04/18 17:00 03/06/18 16:59 Vancomycin/Sodium Chloride 250 ml @ 166.667 mls/hr Q12HR@0800,2000 IVPB 02/07/18 20:00 02/12/18 19:59 02/08/18 08:18 Assessment/Plan Problem List: (1) Respiratory distress Assessment & Plan: Needs venous access charity. intubated on vent with multiple IV meds and fluids. difficult peripheral IV Access as noted in HPI. central line indicated and recommended. please refer to Procedure note thank you for this consultation. ICD Codes: R06.03 - Acute respiratory distress SNOMED: 852963832 Status: not improved Trent Franco Feb 08, 2018 15:53
[2018-02-08] MEDS: Dyna-Hex 2% Top Sol 2oz TOPIC SCH (19:45)
[2018-02-08] MEDS ORDERED: NS 275ml ONE (20:26)
[2018-02-08] MEDS ORDERED: Tubing IV Secondary IV ONE (20:26)
[2018-02-08] MEDS ORDERED: Sterile Water Irrig 1000ml IRRIG ONE (20:26)
--- NOTE | 2018-02-08 20:45 | Progress Note ---
DATE: 02/08/2018 CARDIOLOGY PROGRESS NOTE SUBJECTIVE: The patient remains in the intensive care unit. Condition remains critical. The patient is on ventilator support. OBJECTIVE: VITAL SIGNS: Blood pressure 158/64, pulse 76, respiratory rate 23. Monitor, atrial fibrillation. HEENT: Thin trach secretions. NECK: Coarse breath sounds. Scattered rhonchi. HEART: Irregularly irregular rhythm. Normal S1, S2. ABDOMEN: Soft. EXTREMITIES: Trace edema. SKIN: G-tube intact. LABORATORY DATA: White count 6.5, hemoglobin 9.6. Sodium 147, potassium 2.7, bicarbonate 22, BUN 4, creatinine 0.5, albumin 2.1. Pro-natriuretic peptide is 2400. IMPRESSION: 1. UTI with ESBL Klebsiella pneumoniae. 2. Sepsis. 3. Recovered shock. 4. Respiratory failure. 5. Dehydration. 6. Hypernatremia. 7. Hypokalemia. 8. Acute on chronic diastolic congestive heart failure. 9. Severe protein-calorie malnutrition. 10. Dysphagia with G-tube. 11. Dilantin toxicity. PLAN: 1. Weaning efforts. 2. Antimicrobials. 3. Replace potassium. 4. Replace free water. 5. Follow up electrolytes. 6. Cautious diuresis. 7. Hold Dilantin until drug levels normalize. Marva William JOB#: [id number] CC:
[2018-02-09] VITALS (24 sets, daily range): BP systolic 111–173; BP diastolic 44–92
[2018-02-09] MEDS: LORazepam Inj 2mg/ml 1ml IV PRN ×3 (03:15→22:14)
[2018-02-09 04:41] LABS: BASOPHILS % (AUTO) 0.9 % (0.0-2.0); HEMATOCRIT 26.4 % (37.0-47.0); HEMOGLOBIN 9.5 G/DL (12.0-16.0); LYMPHOCYTES % (AUTO) 22.2 % (20.0-45.0); MEAN CORPUSCULAR VOLUME 98 FL (80-99); NEUTROPHILS % (AUTO) 57.9 % (45.0-75.0); PLATELET COUNT 124 K/UL (150-450); RED BLOOD COUNT 2.69 M/UL (4.20-5.40); RED CELL DISTRIBUTION WIDTH 11.6 % (11.6-14.8); WHITE BLOOD COUNT 5.6 K/UL (4.8-10.8)
[2018-02-09 05:07] LABS: ALANINE AMINOTRANSFERASE 11 U/L (12-78); ALBUMIN/GLOBULIN RATIO 0.5 (1.0-2.7); ALKALINE PHOSPHATASE 71 U/L (46-116); ANION GAP 10 mmol/L (5-15); ASPARTATE AMINO TRANSFERASE 16 U/L (15-37); BILIRUBIN,TOTAL 0.5 MG/DL (0.2-1.0); BLOOD UREA NITROGEN 4 mg/dL (7-18); CARBON DIOXIDE 22 MMOL/L (21-32); CHLORIDE 109 MMOL/L (98-107); CREATININE 0.5 MG/DL (0.55-1.30); POTASSIUM 3.1 MMOL/L (3.5-5.1); SODIUM 140 MMOL/L (136-145)
[2018-02-09] MEDS: Vancomycin 750mg/NS 250ml IVPB SCH ×2 (08:09→21:01)
--- NOTE | 2018-02-09 08:31 | Cardiology Report ---
APPROVED REPORT EXAM: Two-dimensional and M-mode echocardiogram with Doppler and color Doppler. INDICATION Congestive Heart Failure M-Mode DIMENSIONS IVSd1.6 (0.7-1.1cm)Left Atrium (MM)4.0 (1.6-4.0cm) LVDd5.0 (3.5-5.6cm)Aortic Root3.2 (2.0-3.7cm) PWd1.7 (0.7-1.1cm)Aortic Cusp Exc.1.7 (1.5-2.0cm) IVSs2.2 cm LVDs3.4 (2.5-4.0cm) PWs1.8 cm Normal left ventricular chamber size, systolic function and wall motion to extent visualized. Left ventricular ejection fraction estimated to be 60-65 %. Mild left ventricular hypertrophy by 2-D. No evidence of pericardial effusion. Pleural effusion present . All other cardiac chamber sizes are within normal limits. Moderately Thickened mitral valve leaflets with normal excursion. Moderately Mitral annulus and aortic root calcification. Focal aortic valve sclerosis with adequate cusp excersion . IVC at 2.4cm with physiologic collapse suggestive of increased RA pressure. A color flow and spectral Doppler study was performed and revealed: Trace aortic regurgitation. Mild mitral regurgitation. Normal left ventricular diastolic function . Trace tricuspid regurgitation. Tricuspid systolic velocities suggests peak right ventricular systolic pressure of 43 mmHg, consistent with moderate pulmonary hypertension. No Pulmonic regurgitation present.
[2018-02-09] MEDS: Meropenem 1 GM in NS 110 ML IVPB SCH ×2 (09:05→21:32)
[2018-02-09] MEDS: Pantoprazole Inj IVP SCH (09:05)
[2018-02-09] MEDS: levETIRAcetam 500mg/5ml Liquid NG SCH ×2 (09:05→20:34)
[2018-02-09] MEDS: Heparin 5000 units/ml inj SUBQ SCH ×2 (09:08→20:34)
--- NOTE | 2018-02-09 09:49 | General Progress Note ---
Assessment/Plan Problem List: (1) Respiratory distress ICD Codes: R06.03 - Acute respiratory distress SNOMED: 686240937 (2) Atrial fibrillation ICD Codes: I48.91 - Unspecified atrial fibrillation SNOMED: 66922102 Qualifiers: Qualified Codes: I48.2 - Chronic atrial fibrillation (3) Respiratory failure ICD Codes: J96.90 - Respiratory failure, unspecified, unspecified whether with hypoxia or hypercapnia SNOMED: 774456985 Qualifiers: Qualified Codes: J96.01 - Acute respiratory failure with hypoxia; J96.02 - Acute respiratory failure with hypercapnia (4) UTI (urinary tract infection) ICD Codes: N39.0 - Urinary tract infection, site not specified SNOMED: 15707668 Qualifiers: Qualified Codes: N30.00 - Acute cystitis without hematuria Assessment/Plan iv abx per ID vent resp rx gt feeds hold dilantin- monitor dc ivf lasix repeat cxr weaning per pulm Subjective ROS Limited/Unobtainable: No Constitutional: Reports: malaise, weakness HEENT: Reports: no symptoms Cardiovascular: Reports: no symptoms Respiratory: Reports: shortness of breath Gastrointestinal/Abdominal: Reports: difficulty swallowing Genitourinary: Reports: no symptoms Neurologic/Psychiatric: Reports: seizure Endocrine: Reports: no symptoms Hematologic/Lymphatic: Reports: no symptoms Allergies: Coded Allergies: PENICILLINS (Verified Allergy, Unknown, 02/04/18) SULFA (SULFONAMIDE ANTIBIOTICS) (Verified Allergy, Unknown, 02/04/18) All Systems: reviewed and negative except above Subjective no events. stable on the vent. awake. no fevers.low k on labs noted. Objective Last 24 Hour Vital Signs Date Time Temp Pulse Resp B/P (MAP) Pulse Ox O2 Delivery O2 Flow Rate FiO2 02/09/18 08:39 100 02/09/18 08:33 65 20 35 02/09/18 08:14 65 12 35 02/09/18 08:00 40 02/09/18 08:00 98.2 59 18 160/62 100 Mechanical Ventilator 40 98.2 02/09/18 07:00 55 18 155/58 100 Mechanical Ventilator 40 02/09/18 06:41 62 18 40 02/09/18 06:00 56 18 129/52 100 Mechanical Ventilator 40 02/09/18 05:00 71 18 173/69 100 Mechanical Ventilator 40 02/09/18 05:00 76 18 40 02/09/18 04:00 40 02/09/18 04:00 98.6 62 18 134/48 100 Mechanical Ventilator 40 98.6 02/09/18 03:52 56 02/09/18 03:15 173/67 02/09/18 03:00 77 18 173/67 100 Mechanical Ventilator 40 02/09/18 02:55 76 18 40 02/09/18 02:00 59 18 166/58 100 Mechanical Ventilator 40 02/09/18 01:00 60 18 151/53 100 Mechanical Ventilator 40 02/09/18 00:47 60 18 40 02/09/18 00:00 97.7 62 18 146/56 100 Mechanical Ventilator 40 97.7 02/09/18 00:00 40 02/08/18 23:31 56 02/08/18 23:00 62 18 114/46 100 Mechanical Ventilator 40 02/08/18 22:37 68 18 40 02/08/18 22:00 76 18 161/57 100 Mechanical Ventilator 40 02/08/18 21:38 161/63 02/08/18 21:20 75 18 161/63 100 Mechanical Ventilator 40 02/08/18 21:10 76 18 40 02/08/18 21:00 65 18 164/72 100 Mechanical Ventilator 40 02/08/18 20:00 98.5 66 18 158/63 100 Mechanical Ventilator 40 98.5 02/08/18 20:00 40 02/08/18 19:24 60 02/08/18 19:00 60 18 128/50 100 Mechanical Ventilator 40 02/08/18 18:56 65 18 40 02/08/18 18:00 86 26 138/58 100 Mechanical Ventilator 40 02/08/18 17:00 89 20 40 02/08/18 17:00 87 18 163/63 100 Mechanical Ventilator 40 02/08/18 16:00 40 02/08/18 16:00 98.6 86 21 184/65 100 Mechanical Ventilator 40 98.6 02/08/18 16:00 87 02/08/18 15:45 82 21 40 02/08/18 15:45 100 02/08/18 15:00 79 19 148/67 100 Mechanical Ventilator 40 02/08/18 14:50 82 22 40 02/08/18 14:00 80 18 159/62 100 Mechanical Ventilator 40 02/08/18 13:00 70 18 164/64 100 Mechanical Ventilator 40 02/08/18 12:37 69 18 40 02/08/18 12:00 69 02/08/18 12:00 40 02/08/18 12:00 98.9 71 18 171/57 100 Mechanical Ventilator 40 98.9 02/08/18 11:00 66 18 142/47 100 Mechanical Ventilator 40 02/08/18 10:43 68 18 40 02/08/18 10:00 78 18 161/57 100 Mechanical Ventilator 40 Intake and Output 02/08/18 02/09/18 19:00 07:00 Intake Total 1533.334 ml 1215 ml Output Total 1605 ml 1285 ml Balance -71.666 ml -70 ml Intake Oral 0 ml IV Total 1293.334 ml 885 ml Tube Feeding 90 ml 240 ml Other 150 ml 90 ml Output Urine Total 1605 ml 1255 ml Stool Total 30 ml Laboratory Tests 02/08/18 11:45: White Blood Count 6.5, Red Blood Count 2.73L, Hemoglobin 9.6L, Hematocrit 27.0L , Mean Corpuscular Volume 99, Mean Corpuscular Hemoglobin 35.2H, Mean Corpuscular Hemoglobin Concent 35.6, Red Cell Distribution Width 11.5L, Platelet Count 120L, Mean Platelet Volume 9.6, Neutrophils (%) (Auto) 62.2, Lymphocytes (%) (Auto) 19.1L, Monocytes (%) (Auto) 11.4H, Eosinophils (%) (Auto ) 6.6H, Basophils (%) (Auto) 0.8, Sodium Level 143, Potassium Level 2.7*L, Chloride Level 110H, Carbon Dioxide Level 22, Anion Gap 10, Blood Urea Nitrogen 4L, Creatinine 0.5L, Estimat Glomerular Filtration Rate , Glucose Level 94, Calcium Level 7.9L, Total Bilirubin 0.5, Aspartate Amino Transf (AST/SGOT) 15, Alanine Aminotransferase (ALT/SGPT) 9L, Alkaline Phosphatase 74, Total Protein 5.9L, Albumin 2.1L, Globulin 3.8, Albumin/Globulin Ratio 0.6L, Phenytoin ( Dilantin) Level 30.7*H 02/09/18 04:10: White Blood Count 5.6, Red Blood Count 2.69L, Hemoglobin 9.5L, Hematocrit 26.4L , Mean Corpuscular Volume 98, Mean Corpuscular Hemoglobin 35.4H, Mean Corpuscular Hemoglobin Concent 35.9, Red Cell Distribution Width 11.6, Platelet Count 124L, Mean Platelet Volume 9.2, Neutrophils (%) (Auto) 57.9, Lymphocytes ( %) (Auto) 22.2, Monocytes (%) (Auto) 11.0H, Eosinophils (%) (Auto) 8.0H, Basophils (%) (Auto) 0.9, Sodium Level 140, Potassium Level 3.1L, Chloride Level 109H, Carbon Dioxide Level 22, Anion Gap 10, Blood Urea Nitrogen 4L, Creatinine 0.5L, Estimat Glomerular Filtration Rate , Glucose Level 98, Calcium Level 8.0L, Total Bilirubin 0.5, Aspartate Amino Transf (AST/SGOT) 16, Alanine Aminotransferase (ALT/SGPT) 11L, Alkaline Phosphatase 71, Total Protein 5.9L, Albumin 2.0L, Globulin 3.9, Albumin/Globulin Ratio 0.5L Height (Feet): 5 Height (Inches): 6.00 Weight (Pounds): 174 Objective General Appearance: WD/WN, lethargic, confused Neck: supple Cardiovascular: regular rhythm Respiratory/Chest: rhonchi - bilaterally Abdomen: normal bowel sounds, non tender, soft, no organomegaly Edema: no edema noted Arm (L), no edema noted Arm (R), no edema noted Leg (L), no edema noted Leg (R), no edema noted Pedal (L), no edema noted Pedal (R), no edema noted Generalized LAURA ABRAMS Feb 09, 2018 09:49
[2018-02-09] MEDS ORDERED: Sterile Water Irrig 1000ml IRRIG ONE (10:23)
[2018-02-09] MEDS ORDERED: NS 275ml ONE (10:23)
--- NOTE | 2018-02-09 12:00 | Diagnostic Imaging Report ---
Indication: Cough Technique: One view of the chest Comparison: 02/07/2018 Findings: Single satisfactory positions of endotracheal tube and left subclavian central venous catheter. There is again demonstrated left basilar pleural fluid and some retrocardiac consolidation. Findings are unchanged Impression: Unchanged, over one day, findings as above.
--- NOTE | 2018-02-09 15:34 | Critical Care Progress Note ---
Assessment/Plan Assessment/Plan IMPRESSIONS: 1. Chronic obstructive pulmonary disease with acute exacerbation 2. Acute on chronic encephalopathy. 3. Evidence of metabolic acidosis 4. Evidence of significant bronchospasm. resolved 5. lyte imbalance 6. Acute renal failure. 7. protein calorie malnutrition 8. possible aspiration 9. pneumonia 10. possible pulmonary edema with cxr and BNP PLAN care noted IV antibiotics noted antihypertensives monitor hemodynamics keep negative if able cultures reviewed respiratory care as outlined Ventilatory support noted reviewed meds supportive care suction as needed try to wean daily- unable today; unstable; will reeval in am oxygen therapy prognosis guarded aspiration precautions elevate head for change feeds consider diuresis medications/laboratory data/nursing notes/ICU care reviewed in detail note reviewed and edited care discussed with RN and RT ICU time spent 36 minutes Critical Care - Subjective Interval Events: care noted did not tolerate wean tachycardic with any wean elevated BP d/w nursing ROS Limited/Unobtainable: Yes Condition: critical EKG Rhythm: Sinus Tachycardia Residuals: minimal Tube Feeding Tolerated: yes I&O: Intake and Output 02/08/18 02/09/18 19:00 07:00 Intake Total 1533.334 ml 1215 ml Output Total 1605 ml 1285 ml Balance -71.666 ml -70 ml Intake Oral 0 ml IV Total 1293.334 ml 885 ml Tube Feeding 90 ml 240 ml Other 150 ml 90 ml Output Urine Total 1605 ml 1255 ml Stool Total 30 ml Critical Care - Objective CXR: noted infiltrates ET-Tube: 7.5 ET Position: 23 Last 24 Hour Vital Signs Date Time Temp Pulse Resp B/P (MAP) Pulse Ox O2 Delivery O2 Flow Rate FiO2 02/09/18 14:55 68 18 35 02/09/18 14:01 73 18 Mechanical Ventilator 35 02/09/18 13:00 77 18 154/59 100 Mechanical Ventilator 35 02/09/18 12:50 81 19 35 02/09/18 12:37 83 173/71 02/09/18 12:00 35 02/09/18 12:00 70 02/09/18 12:00 98.9 83 18 173/71 100 Mechanical Ventilator 35 98.9 02/09/18 11:00 72 18 35 02/09/18 11:00 73 18 165/67 100 Mechanical Ventilator 35 02/09/18 10:00 74 18 155/62 100 Mechanical Ventilator 35 02/09/18 09:00 73 18 168/66 100 Mechanical Ventilator 35 18 08:39 100 02/09/18 08:33 65 20 35 02/09/18 08:14 65 12 35 18 08:00 35 02/09/18 08:00 58 02/09/18 08:00 98.2 59 18 160/62 100 Mechanical Ventilator 35 98.2 02/09/18 07:00 55 18 155/58 100 Mechanical Ventilator 40 02/09/18 06:41 62 18 40 02/09/18 06:00 56 18 129/52 100 Mechanical Ventilator 40 02/09/18 05:00 71 18 173/69 100 Mechanical Ventilator 40 02/09/18 05:00 76 18 40 02/09/18 04:00 40 02/09/18 04:00 98.6 62 18 134/48 100 Mechanical Ventilator 40 98.6 02/09/18 03:52 56 02/09/18 03:15 173/67 02/09/18 03:00 77 18 173/67 100 Mechanical Ventilator 40 02/09/18 02:55 76 18 40 02/09/18 02:00 59 18 166/58 100 Mechanical Ventilator 40 02/09/18 01:00 60 18 151/53 100 Mechanical Ventilator 40 02/09/18 00:47 60 18 40 02/09/18 00:00 97.7 62 18 146/56 100 Mechanical Ventilator 40 97.7 02/09/18 00:00 40 02/08/18 23:31 56 02/08/18 23:00 62 18 114/46 100 Mechanical Ventilator 40 02/08/18 22:37 68 18 40 02/08/18 22:00 76 18 161/57 100 Mechanical Ventilator 40 02/08/18 21:38 161/63 02/08/18 21:20 75 18 161/63 100 Mechanical Ventilator 40 02/08/18 21:10 76 18 40 02/08/18 21:00 65 18 164/72 100 Mechanical Ventilator 40 02/08/18 20:00 98.5 66 18 158/63 100 Mechanical Ventilator 40 98.5 02/08/18 20:00 40 18 19:24 60 18 19:00 60 18 128/50 100 Mechanical Ventilator 40 02/08/18 18:56 65 18 40 4/15/18 18:00 86 26 138/58 100 Mechanical Ventilator 40 02/08/18 17:00 89 20 40 02/08/18 17:00 87 18 163/63 100 Mechanical Ventilator 40 02/08/18 16:00 40 02/08/18 16:00 98.6 86 21 184/65 100 Mechanical Ventilator 40 98.6 02/08/18 16:00 87 02/08/18 15:45 82 21 40 02/08/18 15:45 100 Labs: Labs Test 02/07/18 04:00 02/07/18 06:00 02/07/18 17:15 02/08/18 04:10 Arterial Blood pH 7.466 (7.350-7.450) Arterial Blood Partial Pressure CO2 27.0 mmHg (35.0-45.0) Arterial Blood Partial Pressure O2 133.0 mmHg (75.0-100.0) Arterial Blood HCO3 19.0 mmol/L (22.0-26.0) Arterial Blood Oxygen Saturation 98.4 % (92.0-98.0) Arterial Blood Base Excess -3.6 Jose Luis Test Positive White Blood Count 9.8 K/UL (4.8-10.8) 7.6 K/UL (4.8-10.8) Red Blood Count 3.07 M/UL (4.20-5.40) 3.12 M/UL (4.20-5.40) Hemoglobin 11.2 G/DL (12.0-16.0) 11.0 G/DL (12.0-16.0) Hematocrit 31.0 % (37.0-47.0) 31.5 % (37.0-47.0) Mean Corpuscular Volume 101 FL (80-99) 101 FL (80-99) Mean Corpuscular Hemoglobin 36.4 PG (27.0-31.0) 35.2 PG (27.0-31.0) Mean Corpuscular Hemoglobin Concent 36.0 G/DL (32.0-36.0) 34.8 G/DL (32.0-36.0) Red Cell Distribution Width 12.0 % (11.6-14.8) 12.0 % (11.6-14.8) Platelet Count 118 K/UL (150-450) 115 K/UL (150-450) Mean Platelet Volume 10.7 FL (6.5-10.1) 9.8 FL (6.5-10.1) Neutrophils (%) (Auto) 63.0 % (45.0-75.0) 56.7 % (45.0-75.0) Lymphocytes (%) (Auto) 21.3 % (20.0-45.0) 25.0 % (20.0-45.0) Monocytes (%) (Auto) 11.7 % (1.0-10.0) 10.9 % (1.0-10.0) Eosinophils (%) (Auto) 3.2 % (0.0-3.0) 6.4 % (0.0-3.0) Basophils (%) (Auto) 0.7 % (0.0-2.0) 1.0 % (0.0-2.0) Sodium Level 139 MMOL/L (136-145) 143 MMOL/L (136-145) Potassium Level 3.4 MMOL/L (3.5-5.1) 3.5 MMOL/L (3.5-5.1) Chloride Level 109 MMOL/L (98-107) 109 MMOL/L (98-107) Carbon Dioxide Level 20 MMOL/L (21-32) 20 MMOL/L (21-32) Anion Gap 10 mmol/L (5-15) 14 mmol/L (5-15) Blood Urea Nitrogen 6 mg/dL (7-18) 5 mg/dL (7-18) Creatinine 0.7 MG/DL (0.55-1.30) 0.5 MG/DL (0.55-1.30) Estimat Glomerular Filtration Rate mL/min (>60) mL/min (>60) Glucose Level 111 MG/DL (74-106) 90 MG/DL (74-106) Calcium Level 8.1 MG/DL (8.5-10.1) 8.2 MG/DL (8.5-10.1) Magnesium Level 1.9 MG/DL (1.8-2.4) 1.8 MG/DL (1.8-2.4) Total Bilirubin 0.7 MG/DL (0.2-1.0) 0.7 MG/DL (0.2-1.0) Aspartate Amino Transf (AST/SGOT) 20 U/L (15-37) 27 U/L (15-37) Alanine Aminotransferase (ALT/SGPT) 11 U/L (12-78) 10 U/L (12-78) Alkaline Phosphatase 89 U/L (46-116) 82 U/L (46-116) Total Protein 6.9 G/DL (6.4-8.2) 6.5 G/DL (6.4-8.2) Albumin 2.4 G/DL (3.4-5.0) 2.3 G/DL (3.4-5.0) Globulin 4.5 g/dL 4.2 g/dL Albumin/Globulin Ratio 0.5 (1.0-2.7) 0.5 (1.0-2.7) Vancomycin Level Trough 6.6 ug/mL (5.0-12.0) Pro-B-Type Natriuretic Peptide 2432 pg/mL (0-125) Phenytoin (Dilantin) Level 32.3 ug/mL (10-20) Test 02/08/18 11:45 02/09/18 04:10 White Blood Count 6.5 K/UL (4.8-10.8) 5.6 K/UL (4.8-10.8) Red Blood Count 2.73 M/UL (4.20-5.40) 2.69 M/UL (4.20-5.40) Hemoglobin 9.6 G/DL (12.0-16.0) 9.5 G/DL (12.0-16.0) Hematocrit 27.0 % (37.0-47.0) 26.4 % (37.0-47.0) Mean Corpuscular Volume 99 FL (80-99) 98 FL (80-99) Mean Corpuscular Hemoglobin 35.2 PG (27.0-31.0) 35.4 PG (27.0-31.0) Mean Corpuscular Hemoglobin Concent 35.6 G/DL (32.0-36.0) 35.9 G/DL (32.0-36.0) Red Cell Distribution Width 11.5 % (11.6-14.8) 11.6 % (11.6-14.8) Platelet Count 120 K/UL (150-450) 124 K/UL (150-450) Mean Platelet Volume 9.6 FL (6.5-10.1) 9.2 FL (6.5-10.1) Neutrophils (%) (Auto) 62.2 % (45.0-75.0) 57.9 % (45.0-75.0) Lymphocytes (%) (Auto) 19.1 % (20.0-45.0) 22.2 % (20.0-45.0) Monocytes (%) (Auto) 11.4 % (1.0-10.0) 11.0 % (1.0-10.0) Eosinophils (%) (Auto) 6.6 % (0.0-3.0) 8.0 % (0.0-3.0) Basophils (%) (Auto) 0.8 % (0.0-2.0) 0.9 % (0.0-2.0) Sodium Level 143 MMOL/L (136-145) 140 MMOL/L (136-145) Potassium Level 2.7 MMOL/L (3.5-5.1) 3.1 MMOL/L (3.5-5.1) Chloride Level 110 MMOL/L (98-107) 109 MMOL/L (98-107) Carbon Dioxide Level 22 MMOL/L (21-32) 22 MMOL/L (21-32) Anion Gap 10 mmol/L (5-15) 10 mmol/L (5-15) Blood Urea Nitrogen 4 mg/dL (7-18) 4 mg/dL (7-18) Creatinine 0.5 MG/DL (0.55-1.30) 0.5 MG/DL (0.55-1.30) Estimat Glomerular Filtration Rate mL/min (>60) mL/min (>60) Glucose Level 94 MG/DL (74-106) 98 MG/DL (74-106) Calcium Level 7.9 MG/DL (8.5-10.1) 8.0 MG/DL (8.5-10.1) Total Bilirubin 0.5 MG/DL (0.2-1.0) 0.5 MG/DL (0.2-1.0) Aspartate Amino Transf (AST/SGOT) 15 U/L (15-37) 16 U/L (15-37) Alanine Aminotransferase (ALT/SGPT) 9 U/L (12-78) 11 U/L (12-78) Alkaline Phosphatase 74 U/L (46-116) 71 U/L (46-116) Total Protein 5.9 G/DL (6.4-8.2) 5.9 G/DL (6.4-8.2) Albumin 2.1 G/DL (3.4-5.0) 2.0 G/DL (3.4-5.0) Globulin 3.8 g/dL 3.9 g/dL Albumin/Globulin Ratio 0.6 (1.0-2.7) 0.5 (1.0-2.7) Phenytoin (Dilantin) Level 30.7 ug/mL (10-20) 25.6 ug/mL (10-20) Objective: GENERAL: A well-developed female, sedated at present. without change HEENT: Negative. NECK: Supple. The patient is orally intubated. No jugular venous distention. LUNGS: Moderate air entry. no wheezes. some rhonchi which appear worse overall. CARDIAC: Normal S1, S2. RRR Soft systolic murmur heard at the parasternal border. No rubs or gallops. ABDOMEN: Soft, nontender, and nondistended. no distention; feeding tube in place EXTREMITIES: No cyanosis, clubbing, or edema. NEUROLOGICAL: Withdrawn, but sedated at present. SKIN: Noted and reviewed. reviewed and edited Micro: Microbiology Date/Time Source Procedure Growth Status 02/07/18 07:30 Sputum Gram Stain - Final Resulted 02/07/18 07:30 Sputum Culture - Preliminary Gram Negative Bacillus 1 Gram Negative Bacillus 2 Resulted BRANDY COLLIER Feb 09, 2018 15:34
[2018-02-09] MEDS: Dyna-Hex 2% Top Sol 2oz TOPIC SCH (20:30)
[2018-02-10] VITALS (24 sets, daily range): BP systolic 122–166; BP diastolic 43–92
[2018-02-10 06:01] LABS: BASOPHILS % (AUTO) 0.6 % (0.0-2.0); EOSINOPHILS % (AUTO) 7.2 % (0.0-3.0); HEMATOCRIT 28.7 % (37.0-47.0); HEMOGLOBIN 10.6 G/DL (12.0-16.0); LYMPHOCYTES % (AUTO) 27.7 % (20.0-45.0); MEAN CORPUSCULAR VOLUME 98 FL (80-99); MONOCYTES % (AUTO) 10.3 % (1.0-10.0); NEUTROPHILS % (AUTO) 54.2 % (45.0-75.0); PLATELET COUNT 162 K/UL (150-450); RED BLOOD COUNT 2.92 M/UL (4.20-5.40); RED CELL DISTRIBUTION WIDTH 11.8 % (11.6-14.8); WHITE BLOOD COUNT 6.6 K/UL (4.8-10.8)
--- NOTE | 2018-02-10 06:01 | General Progress Note ---
Assessment/Plan Problem List: (1) Respiratory distress ICD Codes: R06.03 - Acute respiratory distress SNOMED: 574551974 (2) Atrial fibrillation ICD Codes: I48.91 - Unspecified atrial fibrillation SNOMED: 03484699 Qualifiers: Qualified Codes: I48.2 - Chronic atrial fibrillation (3) Respiratory failure ICD Codes: J96.90 - Respiratory failure, unspecified, unspecified whether with hypoxia or hypercapnia SNOMED: 809874195 Qualifiers: Qualified Codes: J96.01 - Acute respiratory failure with hypoxia; J96.02 - Acute respiratory failure with hypercapnia (4) UTI (urinary tract infection) ICD Codes: N39.0 - Urinary tract infection, site not specified SNOMED: 98353780 Qualifiers: Qualified Codes: N30.00 - Acute cystitis without hematuria Assessment/Plan iv abx per ID vent resp rx gt feeds hold dilantin- monitor dc ivf lasix iv repeat cxr reviewed weaning per pulm Subjective ROS Limited/Unobtainable: No Constitutional: Reports: malaise, weakness HEENT: Reports: no symptoms Cardiovascular: Reports: no symptoms Respiratory: Reports: shortness of breath Gastrointestinal/Abdominal: Reports: difficulty swallowing Genitourinary: Reports: no symptoms Neurologic/Psychiatric: Reports: pre-existing deficit, seizure Endocrine: Reports: no symptoms Hematologic/Lymphatic: Reports: no symptoms Allergies: Coded Allergies: PENICILLINS (Verified Allergy, Unknown, 02/04/18) SULFA (SULFONAMIDE ANTIBIOTICS) (Verified Allergy, Unknown, 02/04/18) All Systems: reviewed and negative except above Subjective no events. still not tolerating wean. no fevers. on iv lasix. dilantin still high Objective Last 24 Hour Vital Signs Date Time Temp Pulse Resp B/P (MAP) Pulse Ox O2 Delivery O2 Flow Rate FiO2 02/10/18 03:12 70 18 35 02/10/18 03:00 76 18 148/60 100 Mechanical Ventilator 35 02/10/18 02:00 70 18 138/58 100 Mechanical Ventilator 35 02/10/18 01:47 60 18 35 02/10/18 01:00 64 18 145/53 100 Mechanical Ventilator 35 02/10/18 00:00 61 02/10/18 00:00 98.6 63 18 135/52 100 Mechanical Ventilator 35 98.6 02/10/18 00:00 35 4/16/18 23:33 68 18 35 1618 23:00 67 18 166/61 100 Mechanical Ventilator 35 1618 22:00 77 18 159/64 100 Mechanical Ventilator 35 1618 21:26 61 18 35 18 21:00 82 18 155/67 100 Mechanical Ventilator 35 1618 20:00 98.7 71 18 158/57 100 Mechanical Ventilator 35 98.7 18 20:00 68 18 20:00 35 18 19:06 61 18 35 1618 19:00 68 18 142/44 100 Mechanical Ventilator 35 18 18:00 98.9 69 18 143/54 100 Mechanical Ventilator 35 98.9 02/09/18 17:02 80 18 35 18 17:00 78 18 144/54 100 Mechanical Ventilator 35 18 16:00 80 02/09/18 16:00 35 02/09/18 16:00 80 18 163/66 100 Mechanical Ventilator 35 02/09/18 15:00 70 18 156/67 100 Mechanical Ventilator 35 02/09/18 14:55 68 18 35 02/09/18 14:01 73 18 Mechanical Ventilator 35 02/09/18 14:00 63 18 111/92 100 Mechanical Ventilator 35 02/09/18 13:00 77 18 154/59 100 Mechanical Ventilator 35 18 12:50 81 19 35 18 12:37 83 173/71 02/09/18 12:00 35 02/09/18 12:00 70 02/09/18 12:00 98.9 83 18 173/71 100 Mechanical Ventilator 35 98.9 02/09/18 11:00 72 18 35 18 11:00 73 18 165/67 100 Mechanical Ventilator 35 18 10:00 74 18 155/62 100 Mechanical Ventilator 35 18 09:00 73 18 168/66 100 Mechanical Ventilator 35 18 08:39 100 18 08:33 65 20 35 18 08:14 65 12 35 02/09/18 08:00 35 18 08:00 58 02/09/18 08:00 98.2 59 18 160/62 100 Mechanical Ventilator 35 98.2 02/09/18 07:00 55 18 155/58 100 Mechanical Ventilator 40 02/09/18 06:41 62 18 40 02/09/18 06:00 56 18 129/52 100 Mechanical Ventilator 40 Intake and Output 02/09/18 02/10/18 19:00 07:00 Intake Total 1083.334 ml 720.000 ml Output Total 1625 ml 1140 ml Balance -541.666 ml -420.000 ml Free Water 200 ml IV Total 593.334 ml 360.000 ml Tube Feeding 240 ml 160 ml Other 250 ml Output Urine Total 1625 ml 1140 ml Laboratory Tests 02/09/18 19:45: Vancomycin Level Trough 13.6H 02/10/18 05:00: White Blood Count [Pending], Red Blood Count [Pending], Hemoglobin [Pending], Hematocrit [Pending], Mean Corpuscular Volume [Pending], Mean Corpuscular Hemoglobin [Pending], Mean Corpuscular Hemoglobin Concent [Pending], Red Cell Distribution Width [Pending], Platelet Count [Pending], Mean Platelet Volume [ Pending], Neutrophils (%) (Auto) [Pending], Lymphocytes (%) (Auto) [Pending], Monocytes (%) (Auto) [Pending], Eosinophils (%) (Auto) [Pending], Basophils (%) (Auto) [Pending], Sodium Level [Pending], Potassium Level [Pending], Chloride Level [Pending], Carbon Dioxide Level [Pending], Blood Urea Nitrogen [Pending], Creatinine [Pending], Estimat Glomerular Filtration Rate [Pending], Glucose Level [Pending], Calcium Level [Pending] Height (Feet): 5 Height (Inches): 6.00 Weight (Pounds): 174 Objective General Appearance: WD/WN, lethargic, confused Neck: supple Cardiovascular: regular rhythm Respiratory/Chest: rhonchi - bilaterally Abdomen: normal bowel sounds, non tender, soft, no organomegaly Edema: no edema noted Arm (L), no edema noted Arm (R), no edema noted Leg (L), no edema noted Leg (R), no edema noted Pedal (L), no edema noted Pedal (R), no edema noted Generalized LAURA ABRAMS Feb 10, 2018 06:01
[2018-02-10 06:22] LABS: ANION GAP 8 mmol/L (5-15); BLOOD UREA NITROGEN 6 mg/dL (7-18); CALCIUM 8.3 MG/DL (8.5-10.1); CARBON DIOXIDE 24 MMOL/L (21-32); CHLORIDE 107 MMOL/L (98-107); CREATININE 0.6 MG/DL (0.55-1.30); POTASSIUM 3.4 MMOL/L (3.5-5.1); SODIUM 139 MMOL/L (136-145)
[2018-02-10] MEDS: Vancomycin 750mg/NS 250ml IVPB SCH (08:31)
[2018-02-10] MEDS: Pantoprazole Inj IVP SCH (09:41)
[2018-02-10] MEDS: levETIRAcetam 500mg/5ml Liquid NG SCH ×2 (09:41→20:58)
[2018-02-10] MEDS: Heparin 5000 units/ml inj SUBQ SCH ×2 (10:14→20:59)
[2018-02-10] MEDS: Meropenem 1 GM in NS 110 ML IVPB SCH ×2 (11:02→20:58)
--- NOTE | 2018-02-10 11:07 | Infectious Diseases Prog Note ---
"Assessment/Plan Assessment/Plan antibiotics : iv vancomycin, meropenem A 1. klebsiella UTI 2. klebsiella | pseudomonas pneumonia 3. respiratory failure 4. COPD 5. dementia P 1. continue meropenem 2. d/c iv vancomycin 3. will follow up cultures Subjective ROS Limited/Unobtainable: Yes Allergies: Coded Allergies: PENICILLINS (Verified Allergy, Unknown, 02/04/18) SULFA (SULFONAMIDE ANTIBIOTICS) (Verified Allergy, Unknown, 02/04/18) Objective Vital Signs Last 24 Hour Vital Signs Date Time Temp Pulse Resp B/P (MAP) Pulse Ox O2 Delivery O2 Flow Rate FiO2 02/10/18 09:40 88 153/60 02/10/18 09:14 99 29 35 02/10/18 09:13 100 02/10/18 09:00 95 25 153/60 100 Mechanical Ventilator 35 02/10/18 08:00 97.6 76 25 164/67 100 Mechanical Ventilator 35 97.6 02/10/18 08:00 35 02/10/18 08:00 77 02/10/18 07:29 77 18 35 02/10/18 07:00 68 18 155/62 100 Mechanical Ventilator 35 02/10/18 06:00 73 18 152/59 100 Mechanical Ventilator 35 02/10/18 05:59 64 18 35 02/10/18 05:00 73 18 150/59 100 Mechanical Ventilator 35 02/10/18 04:00 61 02/10/18 04:00 98.2 76 18 151/56 100 Mechanical Ventilator 35 98.2 02/10/18 04:00 35 02/10/18 03:12 70 18 35 02/10/18 03:00 76 18 148/60 100 Mechanical Ventilator 35 02/10/18 02:00 70 18 138/58 100 Mechanical Ventilator 35 02/10/18 01:47 60 18 35 02/10/18 01:00 64 18 145/53 100 Mechanical Ventilator 35 02/10/18 00:00 61 02/10/18 00:00 98.6 63 18 135/52 100 Mechanical Ventilator 35 98.6 02/10/18 00:00 35 02/09/18 23:33 68 18 35 02/09/18 23:00 67 18 166/61 100 Mechanical Ventilator 35 02/09/18 22:00 77 18 159/64 100 Mechanical Ventilator 35 02/09/18 21:26 61 18 35 02/09/18 21:00 82 18 155/67 100 Mechanical Ventilator 35 02/09/18 20:00 98.7 71 18 158/57 100 Mechanical Ventilator 35 98.7 02/09/18 20:00 68 02/09/18 20:00 35 02/09/18 19:06 61 18 35 02/09/18 19:00 68 18 142/44 100 Mechanical Ventilator 35 02/09/18 18:00 98.9 69 18 143/54 100 Mechanical Ventilator 35 98.9 02/09/18 17:02 80 18 35 02/09/18 17:00 78 18 144/54 100 Mechanical Ventilator 35 02/09/18 16:00 80 02/09/18 16:00 35 02/09/18 16:00 80 18 163/66 100 Mechanical Ventilator 35 02/09/18 15:00 70 18 156/67 100 Mechanical Ventilator 35 02/09/18 14:55 68 18 35 02/09/18 14:01 73 18 Mechanical Ventilator 35 02/09/18 14:00 63 18 111/92 100 Mechanical Ventilator 35 02/09/18 13:00 77 18 154/59 100 Mechanical Ventilator 35 02/09/18 12:50 81 19 35 02/09/18 12:37 83 173/71 02/09/18 12:00 35 02/09/18 12:00 70 02/09/18 12:00 98.9 83 18 173/71 100 Mechanical Ventilator 35 98.9 Height (Feet): 5 Height (Inches): 6.00 Weight (Pounds): 176 HEENT: other - intubated Respiratory/Chest: lungs clear Cardiovascular: normal rate, regular rhythm, no gallop/murmur Abdomen: soft, non tender, other - GT Extremities: no edema, other - left subclavian Laboratory Tests Test 02/09/18 19:45 02/10/18 05:00 Vancomycin Level Trough 13.6 ug/mL (5.0-12.0) H White Blood Count 6.6 K/UL (4.8-10.8) Red Blood Count 2.92 M/UL (4.20-5.40) L Hemoglobin 10.6 G/DL (12.0-16.0) L Hematocrit 28.7 % (37.0-47.0) L Mean Corpuscular Volume 98 FL (80-99) Mean Corpuscular Hemoglobin 36.1 PG (27.0-31.0) H Mean Corpuscular Hemoglobin Concent 36.8 G/DL (32.0-36.0) H Red Cell Distribution Width 11.8 % (11.6-14.8) Platelet Count 162 K/UL (150-450) Mean Platelet Volume 8.4 FL (6.5-10.1) Neutrophils (%) (Auto) 54.2 % (45.0-75.0) Lymphocytes (%) (Auto) 27.7 % (20.0-45.0) Monocytes (%) (Auto) 10.3 % (1.0-10.0) H Eosinophils (%) (Auto) 7.2 % (0.0-3.0) H Basophils (%) (Auto) 0.6 % (0.0-2.0) Sodium Level 139 MMOL/L (136-145) Potassium Level 3.4 MMOL/L (3.5-5.1) L Chloride Level 107 MMOL/L (98-107) Carbon Dioxide Level 24 MMOL/L (21-32) Anion Gap 8 mmol/L (5-15) Blood Urea Nitrogen 6 mg/dL (7-18) L Creatinine 0.6 MG/DL (0.55-1.30) Estimat Glomerular Filtration Rate mL/min (>60) Glucose Level 124 MG/DL (74-106) H Calcium Level 8.3 MG/DL (8.5-10.1) L Current Medications Medications (Trade) Dose Ordered Sig/Singh Route PRN Reason Start Time Stop Time Status Last Admin Dose Admin Acetaminophen (Tylenol) 650 mg Q4H PRN GT Mild Pain/Temp > 100.5 02/06/18 15:30 03/08/18 15:29 02/07/18 17:03 Amlodipine Besylate (Norvasc) 5 mg DAILY ORAL 02/09/18 12:30 03/11/18 12:29 02/10/18 09:40 Chlorhexidine Gluconate (Azra-Hex 2%) 1 applic DAILY@1999 TOPIC 02/07/18 20:00 03/09/18 19:59 02/09/18 20:30 Clonidine HCl (Catapres Tab) 0.1 mg Q4H PRN ORAL For High Blood Pressure 02/08/18 18:30 03/10/18 18:29 02/09/18 03:15 Furosemide (Lasix) 40 mg DAILY IV 02/10/18 09:00 03/12/18 08:59 Heparin Sodium (Porcine) (Heparin 5000 units/ml) 5,000 units EVERY 12 HOURS SUBQ 02/04/18 21:00 03/06/18 20:59 02/10/18 10:14 Levetiracetam (Keppra) 500 mg Q12HR NG 02/05/18 09:00 03/07/18 08:59 02/10/18 09:41 Lorazepam (Ativan 2mg/ml 1ml) 1 mg Q2H PRN IV For Anxiety 02/04/18 17:00 02/11/18 16:59 02/09/18 22:14 Meropenem 1 gm/ Sodium Chloride 110 ml @ 220 mls/hr Q12HR IVPB 02/07/18 12:00 02/12/18 11:59 02/09/18 21:32 Pantoprazole (Protonix) 40 mg DAILY IVP 02/05/18 12:00 03/07/18 11:59 02/10/18 09:41 Potassium Chloride (K-Dur) 60 meq ONCE ONCE ORAL 02/10/18 11:00 02/10/18 11:01 UNV Vancomycin HCl (Vanco rx to dose) 1 ea DAILY PRN MISC Per rx protocol 02/04/18 17:00 03/06/18 16:59 Vancomycin/Sodium Chloride 250 ml @ 166.667 mls/hr Q12HR@0800,2000 IVPB 02/07/18 20:00 02/12/18 19:59 02/10/18 08:31 RAMY BELLA Feb 10, 2018 11:07"
[2018-02-10] MEDS: Acetaminophen 650mg/20.3ml GT PRN (15:45)
[2018-02-10] MEDS: LORazepam Inj 2mg/ml 1ml IV PRN (15:45)
--- NOTE | 2018-02-10 16:29 | General Progress Note ---
Assessment/Plan Problem List: (1) Respiratory distress ICD Codes: R06.03 - Acute respiratory distress SNOMED: 951443477 (2) Atrial fibrillation ICD Codes: I48.91 - Unspecified atrial fibrillation SNOMED: 16924837 Qualifiers: Qualified Codes: I48.2 - Chronic atrial fibrillation (3) Respiratory failure ICD Codes: J96.90 - Respiratory failure, unspecified, unspecified whether with hypoxia or hypercapnia SNOMED: 792102045 Qualifiers: Qualified Codes: J96.01 - Acute respiratory failure with hypoxia; J96.02 - Acute respiratory failure with hypercapnia (4) UTI (urinary tract infection) ICD Codes: N39.0 - Urinary tract infection, site not specified SNOMED: 98221063 Qualifiers: Qualified Codes: N30.00 - Acute cystitis without hematuria Status: stable Assessment/Plan iv abx per ID vent resp rx gt feeds hold dilantin- monitor dc ivf lasix iv repeat cxr reviewed weaning per pulm remains critical and guarded Subjective ROS Limited/Unobtainable: Yes Constitutional: Reports: malaise, weakness HEENT: Reports: no symptoms Cardiovascular: Reports: no symptoms Respiratory: Reports: shortness of breath Gastrointestinal/Abdominal: Reports: difficulty swallowing Genitourinary: Reports: no symptoms Neurologic/Psychiatric: Reports: pre-existing deficit, seizure Endocrine: Reports: no symptoms Hematologic/Lymphatic: Reports: anemia Allergies: Coded Allergies: PENICILLINS (Verified Allergy, Unknown, 02/04/18) SULFA (SULFONAMIDE ANTIBIOTICS) (Verified Allergy, Unknown, 02/04/18) All Systems: reviewed and negative except above Subjective no events. still not tolerating wean. no fevers. on iv lasix. dilantin still high Objective Last 24 Hour Vital Signs Date Time Temp Pulse Resp B/P (MAP) Pulse Ox O2 Delivery O2 Flow Rate FiO2 02/10/18 15:45 98.8 02/10/18 15:02 93 24 35 02/10/18 15:00 35 02/10/18 15:00 97 19 158/92 100 Mechanical Ventilator 35 02/10/18 14:00 89 28 159/68 100 Mechanical Ventilator 35 02/10/18 13:29 89 32 35 02/10/18 13:00 84 27 152/64 100 Mechanical Ventilator 35 02/10/18 12:00 35 02/10/18 12:00 85 4/17/18 12:00 98.6 83 27 139/59 100 Mechanical Ventilator 35 98.6 17/18 11:06 81 25 35 4/17/18 11:00 83 25 146/57 100 Mechanical Ventilator 35 4/17/18 11:00 35 4/17/18 10:00 88 27 148/63 100 Mechanical Ventilator 35 4/17/18 09:40 88 153/60 02/10/18 09:14 99 29 35 17/18 09:13 100 17/18 09:00 95 25 153/60 100 Mechanical Ventilator 35 17/18 08:00 97.6 76 25 164/67 100 Mechanical Ventilator 35 97.6 17/18 08:00 35 17/18 08:00 77 02/10/18 07:29 77 18 35 17/18 07:00 68 18 155/62 100 Mechanical Ventilator 35 17/18 06:00 73 18 152/59 100 Mechanical Ventilator 35 17/18 05:59 64 18 35 17/18 05:00 73 18 150/59 100 Mechanical Ventilator 35 17/18 04:00 61 17/18 04:00 98.2 76 18 151/56 100 Mechanical Ventilator 35 98.2 17/18 04:00 35 17/18 03:12 70 18 35 17/18 03:00 76 18 148/60 100 Mechanical Ventilator 35 17/18 02:00 70 18 138/58 100 Mechanical Ventilator 35 17/18 01:47 60 18 35 17/18 01:00 64 18 145/53 100 Mechanical Ventilator 35 17/18 00:00 61 417/18 00:00 98.6 63 18 135/52 100 Mechanical Ventilator 35 98.6 17/18 00:00 35 /16/18 23:33 68 18 35 4/16/18 23:00 67 18 166/61 100 Mechanical Ventilator 35 4/16/18 22:00 77 18 159/64 100 Mechanical Ventilator 35 4/16/18 21:26 61 18 35 4/16/18 21:00 82 18 155/67 100 Mechanical Ventilator 35 4/16/18 20:00 98.7 71 18 158/57 100 Mechanical Ventilator 35 98.7 416/18 20:00 68 4/16/18 20:00 35 02/09/18 19:06 61 18 35 02/09/18 19:00 68 18 142/44 100 Mechanical Ventilator 35 02/09/18 18:00 98.9 69 18 143/54 100 Mechanical Ventilator 35 98.9 02/09/18 17:02 80 18 35 02/09/18 17:00 78 18 144/54 100 Mechanical Ventilator 35 Intake and Output 02/09/18 02/10/18 19:00 07:00 Intake Total 1083.334 ml 900.000 ml Output Total 1625 ml 1790 ml Balance -541.666 ml -890.000 ml Free Water 300 ml IV Total 593.334 ml 360.000 ml Tube Feeding 240 ml 240 ml Other 250 ml Output Urine Total 1625 ml 1740 ml Stool Total 50 ml Laboratory Tests 02/09/18 19:45: Vancomycin Level Trough 13.6H 02/10/18 05:00: White Blood Count 6.6, Red Blood Count 2.92L, Hemoglobin 10.6L, Hematocrit 28.7L , Mean Corpuscular Volume 98, Mean Corpuscular Hemoglobin 36.1H, Mean Corpuscular Hemoglobin Concent 36.8H, Red Cell Distribution Width 11.8, Platelet Count 162, Mean Platelet Volume 8.4, Neutrophils (%) (Auto) 54.2, Lymphocytes (%) (Auto) 27.7, Monocytes (%) (Auto) 10.3H, Eosinophils (%) (Auto) 7.2H, Basophils (%) (Auto) 0.6, Sodium Level 139, Potassium Level 3.4L, Chloride Level 107, Carbon Dioxide Level 24, Anion Gap 8, Blood Urea Nitrogen 6L , Creatinine 0.6, Estimat Glomerular Filtration Rate , Glucose Level 124H, Calcium Level 8.3L 02/10/18 12:15: Arterial Blood pH 7.451H, Arterial Blood Partial Pressure CO2 36.0, Arterial Blood Partial Pressure O2 76.0, Arterial Blood HCO3 24.5, Arterial Blood Oxygen Saturation 95.3, Arterial Blood Base Excess 0.8, Jose Luis Test Positive Height (Feet): 5 Height (Inches): 6.00 Weight (Pounds): 176 Objective General Appearance: WD/WN, lethargic, confused Neck: supple Cardiovascular: regular rhythm Respiratory/Chest: rhonchi - bilaterally Abdomen: normal bowel sounds, non tender, soft, no organomegaly Edema: no edema noted Arm (L), no edema noted Arm (R), no edema noted Leg (L), no edema noted Leg (R), no edema noted Pedal (L), no edema noted Pedal (R), no edema noted Generalized LAURA ABRAMS Feb 10, 2018 16:29
[2018-02-10] MEDS: Dyna-Hex 2% Top Sol 2oz TOPIC SCH (19:55)
--- NOTE | 2018-02-10 21:23 | Pulmonolgy Critical Care Note ---
Critical Care - Asmt/Plan Assessment/Plan: Assessment/Plan IMPRESSIONS: 1. Chronic obstructive pulmonary disease with acute exacerbation 2. Acute on chronic encephalopathy. 3. Evidence of metabolic acidosis 4. Evidence of significant bronchospasm. resolved 5. lyte imbalance 6. Acute renal failure. 7. protein calorie malnutrition 8. possible aspiration 9. pneumonia 10. possible pulmonary edema with cxr and BNP PLAN Continue SIMV wean - only tolerated 30 minutes today care noted IV antibiotics noted antihypertensives monitor hemodynamics keep negative if able cultures reviewed respiratory care as outlined Ventilatory support noted reviewed meds supportive care suction as needed try to wean daily- unable today; unstable; will reeval in am oxygen therapy prognosis guarded aspiration precautions elevate head for change feeds consider diuresis medications/laboratory data/nursing notes/ICU care reviewed in detail note reviewed and edited care discussed with RN and RT ICU time spent 36 minutes Critical Care - Subjective Interval Events: care noted did not tolerate wean tachycardic with any wean elevated BP d/w nursing ROS Limited/Unobtainable: Yes Condition: critical EKG Rhythm: Sinus Tachycardia Residuals: minimal Tube Feeding Tolerated: yes I&O: Intake and Output 02/08/18 02/09/18 19:00 07:00 Intake Total 1533.334 ml 1215 ml Output Total 1605 ml 1285 ml Balance -71.666 ml -70 ml Intake Oral 0 ml IV Total 1293.334 ml 885 ml Tube Feeding 90 ml 240 ml Other 150 ml 90 ml Output Urine Total 1605 ml 1255 ml Stool Total 30 ml Critical Care - Objective CXR: noted infiltrates ET-Tube: 7.5 ET Position: 23 VSS Stable Labs: Noted Labs Test 02/07/18 04:00 02/07/18 06:00 02/07/18 17:15 02/08/18 04:10 Arterial Blood pH 7.466 (7.350-7.450) Arterial Blood Partial Pressure CO2 27.0 mmHg (35.0-45.0) Arterial Blood Partial Pressure O2 133.0 mmHg (75.0-100.0) Arterial Blood HCO3 19.0 mmol/L (22.0-26.0) Arterial Blood Oxygen Saturation 98.4 % (92.0-98.0) Arterial Blood Base Excess -3.6 Jose Luis Test Positive White Blood Count 9.8 K/UL (4.8-10.8) 7.6 K/UL (4.8-10.8) Red Blood Count 3.07 M/UL (4.20-5.40) 3.12 M/UL (4.20-5.40) Hemoglobin 11.2 G/DL (12.0-16.0) 11.0 G/DL (12.0-16.0) Hematocrit 31.0 % (37.0-47.0) 31.5 % (37.0-47.0) Mean Corpuscular Volume 101 FL (80-99) 101 FL (80-99) Mean Corpuscular Hemoglobin 36.4 PG (27.0-31.0) 35.2 PG (27.0-31.0) Mean Corpuscular Hemoglobin Concent 36.0 G/DL (32.0-36.0) 34.8 G/DL (32.0-36.0) Red Cell Distribution Width 12.0 % (11.6-14.8) 12.0 % (11.6-14.8) Platelet Count 118 K/UL (150-450) 115 K/UL (150-450) Mean Platelet Volume 10.7 FL (6.5-10.1) 9.8 FL (6.5-10.1) Neutrophils (%) (Auto) 63.0 % (45.0-75.0) 56.7 % (45.0-75.0) Lymphocytes (%) (Auto) 21.3 % (20.0-45.0) 25.0 % (20.0-45.0) Monocytes (%) (Auto) 11.7 % (1.0-10.0) 10.9 % (1.0-10.0) Eosinophils (%) (Auto) 3.2 % (0.0-3.0) 6.4 % (0.0-3.0) Basophils (%) (Auto) 0.7 % (0.0-2.0) 1.0 % (0.0-2.0) Sodium Level 139 MMOL/L (136-145) 143 MMOL/L (136-145) Potassium Level 3.4 MMOL/L (3.5-5.1) 3.5 MMOL/L (3.5-5.1) Chloride Level 109 MMOL/L (98-107) 109 MMOL/L (98-107) Carbon Dioxide Level 20 MMOL/L (21-32) 20 MMOL/L (21-32) Anion Gap 10 mmol/L (5-15) 14 mmol/L (5-15) Blood Urea Nitrogen 6 mg/dL (7-18) 5 mg/dL (7-18) Creatinine 0.7 MG/DL (0.55-1.30) 0.5 MG/DL (0.55-1.30) Estimat Glomerular Filtration Rate mL/min (>60) mL/min (>60) Glucose Level 111 MG/DL (74-106) 90 MG/DL (74-106) Calcium Level 8.1 MG/DL (8.5-10.1) 8.2 MG/DL (8.5-10.1) Magnesium Level 1.9 MG/DL (1.8-2.4) 1.8 MG/DL (1.8-2.4) Total Bilirubin 0.7 MG/DL (0.2-1.0) 0.7 MG/DL (0.2-1.0) Aspartate Amino Transf (AST/SGOT) 20 U/L (15-37) 27 U/L (15-37) Alanine Aminotransferase (ALT/SGPT) 11 U/L (12-78) 10 U/L (12-78) Alkaline Phosphatase 89 U/L (46-116) 82 U/L (46-116) Total Protein 6.9 G/DL (6.4-8.2) 6.5 G/DL (6.4-8.2) Albumin 2.4 G/DL (3.4-5.0) 2.3 G/DL (3.4-5.0) Globulin 4.5 g/dL 4.2 g/dL Albumin/Globulin Ratio 0.5 (1.0-2.7) 0.5 (1.0-2.7) Vancomycin Level Trough 6.6 ug/mL (5.0-12.0) Pro-B-Type Natriuretic Peptide 2432 pg/mL (0-125) Phenytoin (Dilantin) Level 32.3 ug/mL (10-20) Test 02/08/18 11:45 02/09/18 04:10 White Blood Count 6.5 K/UL (4.8-10.8) 5.6 K/UL (4.8-10.8) Red Blood Count 2.73 M/UL (4.20-5.40) 2.69 M/UL (4.20-5.40) Hemoglobin 9.6 G/DL (12.0-16.0) 9.5 G/DL (12.0-16.0) Hematocrit 27.0 % (37.0-47.0) 26.4 % (37.0-47.0) Mean Corpuscular Volume 99 FL (80-99) 98 FL (80-99) Mean Corpuscular Hemoglobin 35.2 PG (27.0-31.0) 35.4 PG (27.0-31.0) Mean Corpuscular Hemoglobin Concent 35.6 G/DL (32.0-36.0) 35.9 G/DL (32.0-36.0) Red Cell Distribution Width 11.5 % (11.6-14.8) 11.6 % (11.6-14.8) Platelet Count 120 K/UL (150-450) 124 K/UL (150-450) Mean Platelet Volume 9.6 FL (6.5-10.1) 9.2 FL (6.5-10.1) Neutrophils (%) (Auto) 62.2 % (45.0-75.0) 57.9 % (45.0-75.0) Lymphocytes (%) (Auto) 19.1 % (20.0-45.0) 22.2 % (20.0-45.0) Monocytes (%) (Auto) 11.4 % (1.0-10.0) 11.0 % (1.0-10.0) Eosinophils (%) (Auto) 6.6 % (0.0-3.0) 8.0 % (0.0-3.0) Basophils (%) (Auto) 0.8 % (0.0-2.0) 0.9 % (0.0-2.0) Sodium Level 143 MMOL/L (136-145) 140 MMOL/L (136-145) Potassium Level 2.7 MMOL/L (3.5-5.1) 3.1 MMOL/L (3.5-5.1) Chloride Level 110 MMOL/L (98-107) 109 MMOL/L (98-107) Carbon Dioxide Level 22 MMOL/L (21-32) 22 MMOL/L (21-32) Anion Gap 10 mmol/L (5-15) 10 mmol/L (5-15) Blood Urea Nitrogen 4 mg/dL (7-18) 4 mg/dL (7-18) Creatinine 0.5 MG/DL (0.55-1.30) 0.5 MG/DL (0.55-1.30) Estimat Glomerular Filtration Rate mL/min (>60) mL/min (>60) Glucose Level 94 MG/DL (74-106) 98 MG/DL (74-106) Calcium Level 7.9 MG/DL (8.5-10.1) 8.0 MG/DL (8.5-10.1) Total Bilirubin 0.5 MG/DL (0.2-1.0) 0.5 MG/DL (0.2-1.0) Aspartate Amino Transf (AST/SGOT) 15 U/L (15-37) 16 U/L (15-37) Alanine Aminotransferase (ALT/SGPT) 9 U/L (12-78) 11 U/L (12-78) Alkaline Phosphatase 74 U/L (46-116) 71 U/L (46-116) Total Protein 5.9 G/DL (6.4-8.2) 5.9 G/DL (6.4-8.2) Albumin 2.1 G/DL (3.4-5.0) 2.0 G/DL (3.4-5.0) Globulin 3.8 g/dL 3.9 g/dL Albumin/Globulin Ratio 0.6 (1.0-2.7) 0.5 (1.0-2.7) Phenytoin (Dilantin) Level 30.7 ug/mL (10-20) 25.6 ug/mL (10-20) Objective: GENERAL: A well-developed female, sedated at present. without change HEENT: Negative. NECK: Supple. The patient is orally intubated. No jugular venous distention. LUNGS: Moderate air entry. no wheezes. some rhonchi which appear worse overall. CARDIAC: Normal S1, S2. RRR Soft systolic murmur heard at the parasternal border. No rubs or gallops. ABDOMEN: Soft, nontender, and nondistended. no distention; feeding tube in place EXTREMITIES: No cyanosis, clubbing, or edema. NEUROLOGICAL: Withdrawn, but sedated at present. SKIN: Noted and reviewed. reviewed and edited Micro: Microbiology Date/Time Source Procedure Growth Status 02/07/18 07:30 Sputum Gram Stain - Final Resulted 02/07/18 07:30 Sputum Culture - Preliminary Gram Negative Bacillus 1 Gram Negative Bacillus 2 Resulted Critical Care - Objective Last 24 Hour Vital Signs Date Time Temp Pulse Resp B/P (MAP) Pulse Ox O2 Delivery O2 Flow Rate FiO2 02/10/18 19:30 85 18 35 02/10/18 19:00 86 19 127/58 100 Mechanical Ventilator 35 02/10/18 18:00 87 19 155/65 100 Mechanical Ventilator 35 02/10/18 17:00 85 19 122/43 100 Mechanical Ventilator 35 02/10/18 16:49 87 19 35 02/10/18 16:15 98.6 02/10/18 16:00 98.8 83 25 139/59 100 Mechanical Ventilator 35 98.8 02/10/18 16:00 75 02/10/18 15:45 98.8 02/10/18 15:02 93 24 35 02/10/18 15:00 35 02/10/18 15:00 97 19 158/92 100 Mechanical Ventilator 35 02/10/18 14:00 89 28 159/68 100 Mechanical Ventilator 35 02/10/18 13:29 89 32 35 02/10/18 13:00 84 27 152/64 100 Mechanical Ventilator 35 02/10/18 12:00 35 02/10/18 12:00 85 02/10/18 12:00 98.6 83 27 139/59 100 Mechanical Ventilator 35 98.6 02/10/18 11:06 81 25 35 02/10/18 11:00 83 25 146/57 100 Mechanical Ventilator 35 02/10/18 11:00 35 02/10/18 10:00 88 27 148/63 100 Mechanical Ventilator 35 02/10/18 09:40 88 153/60 02/10/18 09:14 99 29 35 02/10/18 09:13 100 02/10/18 09:00 95 25 153/60 100 Mechanical Ventilator 35 02/10/18 08:00 97.6 76 25 164/67 100 Mechanical Ventilator 35 97.6 02/10/18 08:00 35 02/10/18 08:00 77 02/10/18 07:29 77 18 35 02/10/18 07:00 68 18 155/62 100 Mechanical Ventilator 35 02/10/18 06:00 73 18 152/59 100 Mechanical Ventilator 35 02/10/18 05:59 64 18 35 02/10/18 05:00 73 18 150/59 100 Mechanical Ventilator 35 02/10/18 04:00 61 02/10/18 04:00 98.2 76 18 151/56 100 Mechanical Ventilator 35 98.2 02/10/18 04:00 35 02/10/18 03:12 70 18 35 02/10/18 03:00 76 18 148/60 100 Mechanical Ventilator 35 02/10/18 02:00 70 18 138/58 100 Mechanical Ventilator 35 02/10/18 01:47 60 18 35 02/10/18 01:00 64 18 145/53 100 Mechanical Ventilator 35 02/10/18 00:00 61 02/10/18 00:00 98.6 63 18 135/52 100 Mechanical Ventilator 35 98.6 02/10/18 00:00 35 02/09/18 23:33 68 18 35 02/09/18 23:00 67 18 166/61 100 Mechanical Ventilator 35 02/09/18 22:00 77 18 159/64 100 Mechanical Ventilator 35 02/09/18 21:26 61 18 35 Critical Care - Subjective ROS Limited/Unobtainable: Yes Condition: improving EKG Rhythm: Sinus Rhythm FI02: 35 Vent Support Breath Rate: 18 Vent Support Mode: AC Vent Tidal Volume: 550 Sputum Amount: Moderate PIP: 26 Tube Feeding Amount: 20 I&O: Intake and Output 02/09/18 02/10/18 19:00 07:00 Intake Total 1083.334 ml 900.000 ml Output Total 1625 ml 1790 ml Balance -541.666 ml -890.000 ml Free Water 300 ml IV Total 593.334 ml 360.000 ml Tube Feeding 240 ml 240 ml Other 250 ml Output Urine Total 1625 ml 1740 ml Stool Total 50 ml ET-Tube: 7.5 ET Position: 23 Brayan Contreras M.D. Feb 10, 2018 21:23
[2018-02-11] VITALS (25 sets, daily range): BP systolic 114–155; BP diastolic 44–74
--- NOTE | 2018-02-11 03:30 | Progress Note ---
DATE: 02/09/2018 CARDIOLOGY PROGRESS NOTE Late entry for . SUBJECTIVE: The patient remains afebrile, on ventilator support. Weaning efforts have been initiated. OBJECTIVE: VITAL SIGNS: Blood pressure 160/62, pulse 59, and respirations 18. LUNGS: Coarse breath sounds. HEART: Regular rhythm rate. Normal S1, S2. ABDOMEN: Soft. EXTREMITIES: Trace edema. LABORATORY DATA: White count 5.6, hemoglobin 9.5. Dilantin level 25. Chemistry reveals potassium 3.1, BUN 4, creatinine 0.5. Albumin 2. IMPRESSION: 1. Respiratory failure. 2. Recovered shock due to sepsis and urinary tract infection. 3. Hypokalemia. 4. Severe protein-calorie malnutrition. 5. Cerebrovascular disease with dementia. 6. Dilantin toxicity. PLAN: 1. Holding Dilantin. 2. Weaning efforts. 3. Antimicrobials. 4. Replace potassium. 5. Maintenance hydration. 6. DVT prophylaxis. 7. Nutrition by feeding tube with protein supplement. Brayan Card M.D. DR: NGOC JOB#: [id number] CC:
--- NOTE | 2018-02-11 03:45 | Progress Note ---
DATE: 02/10/2018 CARDIOLOGY PROGRESS NOTE SUBJECTIVE: Weaning efforts ongoing. The patient is more alert. SUBJECTIVE: VITAL SIGNS: Blood pressure 158/92, pulse 97, and respirations 19. LUNGS: Coarse breath sounds. HEART: Regular rhythm and rate. Normal S1, S2. ABDOMEN: Soft. EXTREMITIES: A 1+ dependent edema. ABDOMEN: G-tube intact. LABORATORY AND DIAGNOSTIC DATA: Chest x-ray yesterday revealed left basilar pleural effusion and some retrocardiac infiltrate. Sodium 139, potassium 3.4, BUN 6, and creatinine 0.6. White count 6.6, hemoglobin 10.6. ABG, 7.45, 36, and 76. IMPRESSION: 1. Respiratory failure. 2. Recovering Dilantin toxicity. 3. Acute on chronic diastolic congestive heart failure. 4. Sinus node disease with bradycardia. 5. Severe protein-calorie malnutrition. 6. Urinary tract infection with sepsis and recovered shock. 7. Hypertensive heart disease with rising blood pressure trend. PLAN: 1. Weaning efforts. 2. Restart Dilantin. 3. Antimicrobials. 4. DVT prophylaxis. 5. Optimize antihypertensive regimen. 6. Periodic diuresis. Brayan Card M.D. DR: NGOC JOB#: [id number] CC:
[2018-02-11 07:04] LABS: BASOPHILS % (AUTO) 1.3 % (0.0-2.0); EOSINOPHILS % (AUTO) 4.1 % (0.0-3.0); HEMATOCRIT 32.9 % (37.0-47.0); HEMOGLOBIN 11.3 G/DL (12.0-16.0); LYMPHOCYTES % (AUTO) 20.4 % (20.0-45.0); MEAN CORPUSCULAR VOLUME 100 FL (80-99); MONOCYTES % (AUTO) 10.2 % (1.0-10.0); NEUTROPHILS % (AUTO) 63.9 % (45.0-75.0); PLATELET COUNT 182 K/UL (150-450); RED CELL DISTRIBUTION WIDTH 11.8 % (11.6-14.8); WHITE BLOOD COUNT 9.3 K/UL (4.8-10.8)
[2018-02-11 07:21] LABS: ALANINE AMINOTRANSFERASE 12 U/L (12-78); ALBUMIN 2.7 G/DL (3.4-5.0); ALBUMIN/GLOBULIN RATIO 0.6 (1.0-2.7); ALKALINE PHOSPHATASE 88 U/L (46-116); ANION GAP 11 mmol/L (5-15); ASPARTATE AMINO TRANSFERASE 22 U/L (15-37); BILIRUBIN,TOTAL 0.3 MG/DL (0.2-1.0); BLOOD UREA NITROGEN 8 mg/dL (7-18); CARBON DIOXIDE 25 MMOL/L (21-32); CHLORIDE 107 MMOL/L (98-107); CREATININE 0.7 MG/DL (0.55-1.30); POTASSIUM 3.6 MMOL/L (3.5-5.1); SODIUM 143 MMOL/L (136-145)
--- NOTE | 2018-02-11 08:33 | Critical Care Progress Note ---
Assessment/Plan Assessment/Plan IMPRESSIONS: 1. Chronic obstructive pulmonary disease with acute exacerbation 2. Acute on chronic encephalopathy. 3. Evidence of metabolic acidosis 4. Evidence of significant bronchospasm. resolved 5. lyte imbalance 6. Acute renal failure. 7. protein calorie malnutrition 8. possible aspiration 9. pneumonia 10. possible pulmonary edema with cxr and BNP PLAN care noted IV antibiotics noted antihypertensives monitor hemodynamics keep negative if able cultures reviewed respiratory care as outlined Ventilatory support noted reviewed meds supportive care suction as needed try to wean daily- slow process oxygen therapy prognosis guarded aspiration precautions elevate head for change feeds tolerate monitor positive fluid balance medications/laboratory data/nursing notes/ICU care reviewed in detail note reviewed and edited care discussed with RN and RT ICU time spent 36 minutes Critical Care - Subjective Interval Events: difficulty with wean care noted with RN at bedside still requires extensive support ROS Limited/Unobtainable: Yes Condition: critical EKG Rhythm: Sinus Rhythm Residuals: minimal Tube Feeding Tolerated: yes I&O: Intake and Output 02/10/18 02/11/18 19:00 07:00 Intake Total 656.667 ml 650 ml Output Total 2575 ml 1810 ml Balance -1918.333 ml -1160 ml Free Water 300 ml IV Total 166.667 ml 110 ml Tube Feeding 240 ml 240 ml Other 250 ml Output Urine Total 2375 ml 1760 ml Stool Total 200 ml 50 ml Critical Care - Objective ET-Tube: 7.5 ET Position: 23 Last 24 Hour Vital Signs Date Time Temp Pulse Resp B/P (MAP) Pulse Ox O2 Delivery O2 Flow Rate FiO2 02/11/18 08:00 35 02/11/18 08:00 99.2 77 16 148/56 100 Mechanical Ventilator 35 99.2 02/11/18 07:23 79 17 35 02/11/18 07:00 86 18 135/60 100 Mechanical Ventilator 35 02/11/18 06:00 85 18 148/54 100 Mechanical Ventilator 35 02/11/18 05:07 89 19 35 02/11/18 05:00 85 18 155/69 100 Mechanical Ventilator 35 02/11/18 04:00 35 02/11/18 04:00 98.0 83 17 153/66 100 Mechanical Ventilator 35 98.0 02/11/18 04:00 83 02/11/18 04:00 84 02/11/18 03:24 86 18 35 4/18/18 03:00 84 18 119/51 100 Mechanical Ventilator 35 4/18/18 02:00 86 19 123/73 100 Mechanical Ventilator 35 4/18/18 01:29 84 19 35 4/18/18 01:00 85 17 153/66 100 Mechanical Ventilator 35 4/18/18 00:00 98.0 85 17 138/56 100 Mechanical Ventilator 35 98.0 4/18/18 00:00 83 4/17/18 23:25 85 18 35 4/17/18 23:00 84 18 135/58 100 Mechanical Ventilator 35 4/17/18 22:00 84 18 136/66 100 Mechanical Ventilator 35 4/17/18 21:30 82 17 35 4/17/18 21:00 85 17 153/66 100 Mechanical Ventilator 35 4/17/18 20:00 84 4/17/18 20:00 35 4/17/18 20:00 97.5 84 17 122/43 100 Mechanical Ventilator 35 97.5 4/17/18 19:30 85 18 35 4/17/18 19:00 86 19 127/58 100 Mechanical Ventilator 35 4/17/18 18:00 87 19 155/65 100 Mechanical Ventilator 35 4/17/18 17:00 85 19 122/43 100 Mechanical Ventilator 35 4/17/18 16:49 87 19 35 4/17/18 16:15 98.6 4/17/18 16:00 98.8 83 25 139/59 100 Mechanical Ventilator 35 98.8 4/17/18 16:00 75 4/17/18 15:45 98.8 4/17/18 15:02 93 24 35 4/17/18 15:00 35 4/17/18 15:00 97 19 158/92 100 Mechanical Ventilator 35 4/17/18 14:00 89 28 159/68 100 Mechanical Ventilator 35 4/17/18 13:29 89 32 35 4/17/18 13:00 84 27 152/64 100 Mechanical Ventilator 35 4/17/18 12:00 35 4/17/18 12:00 85 4/17/18 12:00 98.6 83 27 139/59 100 Mechanical Ventilator 35 98.6 4/17/18 11:06 81 25 35 4/17/18 11:00 83 25 146/57 100 Mechanical Ventilator 35 4/17/18 11:00 35 4/17/18 10:00 88 27 148/63 100 Mechanical Ventilator 35 4/17/18 09:40 88 153/60 02/10/18 09:14 99 29 35 02/10/18 09:13 100 02/10/18 09:00 95 25 153/60 100 Mechanical Ventilator 35 Labs: Labs Test 02/08/18 11:45 02/09/18 04:10 02/09/18 19:45 02/10/18 05:00 White Blood Count 6.5 K/UL (4.8-10.8) 5.6 K/UL (4.8-10.8) 6.6 K/UL (4.8-10.8) Red Blood Count 2.73 M/UL (4.20-5.40) 2.69 M/UL (4.20-5.40) 2.92 M/UL (4.20-5.40) Hemoglobin 9.6 G/DL (12.0-16.0) 9.5 G/DL (12.0-16.0) 10.6 G/DL (12.0-16.0) Hematocrit 27.0 % (37.0-47.0) 26.4 % (37.0-47.0) 28.7 % (37.0-47.0) Mean Corpuscular Volume 99 FL (80-99) 98 FL (80-99) 98 FL (80-99) Mean Corpuscular Hemoglobin 35.2 PG (27.0-31.0) 35.4 PG (27.0-31.0) 36.1 PG (27.0-31.0) Mean Corpuscular Hemoglobin Concent 35.6 G/DL (32.0-36.0) 35.9 G/DL (32.0-36.0) 36.8 G/DL (32.0-36.0) Red Cell Distribution Width 11.5 % (11.6-14.8) 11.6 % (11.6-14.8) 11.8 % (11.6-14.8) Platelet Count 120 K/UL (150-450) 124 K/UL (150-450) 162 K/UL (150-450) Mean Platelet Volume 9.6 FL (6.5-10.1) 9.2 FL (6.5-10.1) 8.4 FL (6.5-10.1) Neutrophils (%) (Auto) 62.2 % (45.0-75.0) 57.9 % (45.0-75.0) 54.2 % (45.0-75.0) Lymphocytes (%) (Auto) 19.1 % (20.0-45.0) 22.2 % (20.0-45.0) 27.7 % (20.0-45.0) Monocytes (%) (Auto) 11.4 % (1.0-10.0) 11.0 % (1.0-10.0) 10.3 % (1.0-10.0) Eosinophils (%) (Auto) 6.6 % (0.0-3.0) 8.0 % (0.0-3.0) 7.2 % (0.0-3.0) Basophils (%) (Auto) 0.8 % (0.0-2.0) 0.9 % (0.0-2.0) 0.6 % (0.0-2.0) Sodium Level 143 MMOL/L (136-145) 140 MMOL/L (136-145) 139 MMOL/L (136-145) Potassium Level 2.7 MMOL/L (3.5-5.1) 3.1 MMOL/L (3.5-5.1) 3.4 MMOL/L (3.5-5.1) Chloride Level 110 MMOL/L (98-107) 109 MMOL/L (98-107) 107 MMOL/L (98-107) Carbon Dioxide Level 22 MMOL/L (21-32) 22 MMOL/L (21-32) 24 MMOL/L (21-32) Anion Gap 10 mmol/L (5-15) 10 mmol/L (5-15) 8 mmol/L (5-15) Blood Urea Nitrogen 4 mg/dL (7-18) 4 mg/dL (7-18) 6 mg/dL (7-18) Creatinine 0.5 MG/DL (0.55-1.30) 0.5 MG/DL (0.55-1.30) 0.6 MG/DL (0.55-1.30) Estimat Glomerular Filtration Rate mL/min (>60) mL/min (>60) mL/min (>60) Glucose Level 94 MG/DL (74-106) 98 MG/DL (74-106) 124 MG/DL (74-106) Calcium Level 7.9 MG/DL (8.5-10.1) 8.0 MG/DL (8.5-10.1) 8.3 MG/DL (8.5-10.1) Total Bilirubin 0.5 MG/DL (0.2-1.0) 0.5 MG/DL (0.2-1.0) Aspartate Amino Transf (AST/SGOT) 15 U/L (15-37) 16 U/L (15-37) Alanine Aminotransferase (ALT/SGPT) 9 U/L (12-78) 11 U/L (12-78) Alkaline Phosphatase 74 U/L (46-116) 71 U/L (46-116) Total Protein 5.9 G/DL (6.4-8.2) 5.9 G/DL (6.4-8.2) Albumin 2.1 G/DL (3.4-5.0) 2.0 G/DL (3.4-5.0) Globulin 3.8 g/dL 3.9 g/dL Albumin/Globulin Ratio 0.6 (1.0-2.7) 0.5 (1.0-2.7) Phenytoin (Dilantin) Level 30.7 ug/mL (10-20) 25.6 ug/mL (10-20) Vancomycin Level Trough 13.6 ug/mL (5.0-12.0) Test 02/10/18 12:15 02/11/18 05:00 Arterial Blood pH 7.451 (7.350-7.450) Arterial Blood Partial Pressure CO2 36.0 mmHg (35.0-45.0) Arterial Blood Partial Pressure O2 76.0 mmHg (75.0-100.0) Arterial Blood HCO3 24.5 mmol/L (22.0-26.0) Arterial Blood Oxygen Saturation 95.3 % (92.0-98.0) Arterial Blood Base Excess 0.8 Jose Luis Test Positive White Blood Count 9.3 K/UL (4.8-10.8) Red Blood Count 3.30 M/UL (4.20-5.40) Hemoglobin 11.3 G/DL (12.0-16.0) Hematocrit 32.9 % (37.0-47.0) Mean Corpuscular Volume 100 FL (80-99) Mean Corpuscular Hemoglobin 34.2 PG (27.0-31.0) Mean Corpuscular Hemoglobin Concent 34.3 G/DL (32.0-36.0) Red Cell Distribution Width 11.8 % (11.6-14.8) Platelet Count 182 K/UL (150-450) Mean Platelet Volume 6.6 FL (6.5-10.1) Neutrophils (%) (Auto) 63.9 % (45.0-75.0) Lymphocytes (%) (Auto) 20.4 % (20.0-45.0) Monocytes (%) (Auto) 10.2 % (1.0-10.0) Eosinophils (%) (Auto) 4.1 % (0.0-3.0) Basophils (%) (Auto) 1.3 % (0.0-2.0) Sodium Level 143 MMOL/L (136-145) Potassium Level 3.6 MMOL/L (3.5-5.1) Chloride Level 107 MMOL/L (98-107) Carbon Dioxide Level 25 MMOL/L (21-32) Anion Gap 11 mmol/L (5-15) Blood Urea Nitrogen 8 mg/dL (7-18) Creatinine 0.7 MG/DL (0.55-1.30) Estimat Glomerular Filtration Rate mL/min (>60) Glucose Level 168 MG/DL (74-106) Calcium Level 9.0 MG/DL (8.5-10.1) Total Bilirubin 0.3 MG/DL (0.2-1.0) Aspartate Amino Transf (AST/SGOT) 22 U/L (15-37) Alanine Aminotransferase (ALT/SGPT) 12 U/L (12-78) Alkaline Phosphatase 88 U/L (46-116) Total Protein 7.3 G/DL (6.4-8.2) Albumin 2.7 G/DL (3.4-5.0) Globulin 4.6 g/dL Albumin/Globulin Ratio 0.6 (1.0-2.7) Objective: GENERAL: A well-developed female, sedated at present. without change HEENT: Negative. NECK: Supple. The patient is orally intubated. No jugular venous distention. LUNGS: Moderate air entry. no wheezes. minimal rhonchi CARDIAC: Normal S1, S2. RRR Soft systolic murmur heard at the parasternal border. No rubs or gallops. ABDOMEN: Soft, nontender, and nondistended. no distention; feeding tube in place; no HSM EXTREMITIES: No cyanosis, clubbing, or edema. NEUROLOGICAL: Withdrawn, but sedated at present. SKIN: Noted and reviewed. reviewed and edited BRANDY COLLIER Feb 11, 2018 08:32
--- NOTE | 2018-02-11 08:35 | General Progress Note ---
Assessment/Plan Problem List: (1) Respiratory distress ICD Codes: R06.03 - Acute respiratory distress SNOMED: 084122410 (2) Atrial fibrillation ICD Codes: I48.91 - Unspecified atrial fibrillation SNOMED: 72798717 Qualifiers: Qualified Codes: I48.2 - Chronic atrial fibrillation (3) Respiratory failure ICD Codes: J96.90 - Respiratory failure, unspecified, unspecified whether with hypoxia or hypercapnia SNOMED: 992467968 Qualifiers: Qualified Codes: J96.01 - Acute respiratory failure with hypoxia; J96.02 - Acute respiratory failure with hypercapnia (4) UTI (urinary tract infection) ICD Codes: N39.0 - Urinary tract infection, site not specified SNOMED: 25610559 Qualifiers: Qualified Codes: N30.00 - Acute cystitis without hematuria Status: stable, progressing Assessment/Plan iv abx per ID vent resp rx gt feeds hold dilantin- monitor dc ivf lasix iv repeat cxr reviewed weaning per pulm remains critical and guarded Subjective ROS Limited/Unobtainable: No Constitutional: Reports: malaise, weakness HEENT: Reports: no symptoms Cardiovascular: Reports: no symptoms Respiratory: Reports: no symptoms Gastrointestinal/Abdominal: Reports: difficulty swallowing Genitourinary: Reports: no symptoms Neurologic/Psychiatric: Reports: pre-existing deficit, seizure Endocrine: Reports: no symptoms Hematologic/Lymphatic: Reports: no symptoms Allergies: Coded Allergies: PENICILLINS (Verified Allergy, Unknown, 02/04/18) SULFA (SULFONAMIDE ANTIBIOTICS) (Verified Allergy, Unknown, 02/04/18) All Systems: reviewed and negative except above Subjective no events. weaning better. no fevers. on iv lasix. dilantin still high Objective Last 24 Hour Vital Signs Date Time Temp Pulse Resp B/P (MAP) Pulse Ox O2 Delivery O2 Flow Rate FiO2 02/11/18 08:00 35 02/11/18 08:00 99.2 77 16 148/56 100 Mechanical Ventilator 35 99.2 02/11/18 07:23 79 17 35 02/11/18 07:00 86 18 135/60 100 Mechanical Ventilator 35 02/11/18 06:00 85 18 148/54 100 Mechanical Ventilator 35 02/11/18 05:07 89 19 35 02/11/18 05:00 85 18 155/69 100 Mechanical Ventilator 35 4/18/18 04:00 35 4/18/18 04:00 98.0 83 17 153/66 100 Mechanical Ventilator 35 98.0 4/18/18 04:00 83 4/18/18 04:00 84 4/18/18 03:24 86 18 35 4/18/18 03:00 84 18 119/51 100 Mechanical Ventilator 35 4/18/18 02:00 86 19 123/73 100 Mechanical Ventilator 35 4/18/18 01:29 84 19 35 4/18/18 01:00 85 17 153/66 100 Mechanical Ventilator 35 4/18/18 00:00 98.0 85 17 138/56 100 Mechanical Ventilator 35 98.0 4/18/18 00:00 83 4/17/18 23:25 85 18 35 4/17/18 23:00 84 18 135/58 100 Mechanical Ventilator 35 4/17/18 22:00 84 18 136/66 100 Mechanical Ventilator 35 4/17/18 21:30 82 17 35 4/17/18 21:00 85 17 153/66 100 Mechanical Ventilator 35 4/17/18 20:00 84 4/17/18 20:00 35 4/17/18 20:00 97.5 84 17 122/43 100 Mechanical Ventilator 35 97.5 4/17/18 19:30 85 18 35 4/17/18 19:00 86 19 127/58 100 Mechanical Ventilator 35 4/17/18 18:00 87 19 155/65 100 Mechanical Ventilator 35 4/17/18 17:00 85 19 122/43 100 Mechanical Ventilator 35 4/17/18 16:49 87 19 35 4/17/18 16:15 98.6 4/17/18 16:00 98.8 83 25 139/59 100 Mechanical Ventilator 35 98.8 4/17/18 16:00 75 4/17/18 15:45 98.8 4/17/18 15:02 93 24 35 4/17/18 15:00 35 4/17/18 15:00 97 19 158/92 100 Mechanical Ventilator 35 4/17/18 14:00 89 28 159/68 100 Mechanical Ventilator 35 4/17/18 13:29 89 32 35 4/17/18 13:00 84 27 152/64 100 Mechanical Ventilator 35 4/17/18 12:00 35 4/17/18 12:00 85 4/17/18 12:00 98.6 83 27 139/59 100 Mechanical Ventilator 35 98.6 02/10/18 11:06 81 25 35 02/10/18 11:00 83 25 146/57 100 Mechanical Ventilator 35 02/10/18 11:00 35 02/10/18 10:00 88 27 148/63 100 Mechanical Ventilator 35 02/10/18 09:40 88 153/60 02/10/18 09:14 99 29 35 02/10/18 09:13 100 02/10/18 09:00 95 25 153/60 100 Mechanical Ventilator 35 Intake and Output 02/10/18 02/11/18 19:00 07:00 Intake Total 656.667 ml 650 ml Output Total 2575 ml 1810 ml Balance -1918.333 ml -1160 ml Free Water 300 ml IV Total 166.667 ml 110 ml Tube Feeding 240 ml 240 ml Other 250 ml Output Urine Total 2375 ml 1760 ml Stool Total 200 ml 50 ml Laboratory Tests 02/10/18 12:15: Arterial Blood pH 7.451H, Arterial Blood Partial Pressure CO2 36.0, Arterial Blood Partial Pressure O2 76.0, Arterial Blood HCO3 24.5, Arterial Blood Oxygen Saturation 95.3, Arterial Blood Base Excess 0.8, Jose Luis Test Positive 02/11/18 05:00: White Blood Count 9.3, Red Blood Count 3.30L, Hemoglobin 11.3L, Hematocrit 32.9L , Mean Corpuscular Volume 100H, Mean Corpuscular Hemoglobin 34.2H, Mean Corpuscular Hemoglobin Concent 34.3, Red Cell Distribution Width 11.8, Platelet Count 182, Mean Platelet Volume 6.6, Neutrophils (%) (Auto) 63.9, Lymphocytes (% ) (Auto) 20.4, Monocytes (%) (Auto) 10.2H, Eosinophils (%) (Auto) 4.1H, Basophils (%) (Auto) 1.3, Sodium Level 143, Potassium Level 3.6, Chloride Level 107, Carbon Dioxide Level 25, Anion Gap 11, Blood Urea Nitrogen 8, Creatinine 0.7, Estimat Glomerular Filtration Rate , Glucose Level 168H, Calcium Level 9.0 , Magnesium Level [Pending], Total Bilirubin 0.3, Aspartate Amino Transf (AST/ SGOT) 22, Alanine Aminotransferase (ALT/SGPT) 12, Alkaline Phosphatase 88, Pro-B -Type Natriuretic Peptide [Pending], Total Protein 7.3, Albumin 2.7L, Globulin 4.6, Albumin/Globulin Ratio 0.6L, Phenytoin (Dilantin) Level [Pending] Height (Feet): 5 Height (Inches): 6.00 Weight (Pounds): 172 Objective General Appearance: WD/WN, lethargic, confused Neck: supple Cardiovascular: regular rhythm Respiratory/Chest: rhonchi - bilaterally Abdomen: normal bowel sounds, non tender, soft, no organomegaly Edema: no edema noted Arm (L), no edema noted Arm (R), no edema noted Leg (L), no edema noted Leg (R), no edema noted Pedal (L), no edema noted Pedal (R), no edema noted Generalized LAURA ABRAMS Feb 11, 2018 08:35
[2018-02-11] MEDS: levETIRAcetam 500mg/5ml Liquid NG SCH ×2 (09:07→20:57)
[2018-02-11] MEDS: Pantoprazole Inj IVP SCH (09:07)
[2018-02-11] MEDS: Meropenem 1 GM in NS 110 ML IVPB SCH ×2 (09:08→20:56)
[2018-02-11] MEDS: Heparin 5000 units/ml inj SUBQ SCH ×2 (09:22→20:58)
--- NOTE | 2018-02-11 10:25 | Infectious Diseases Prog Note ---
"Assessment/Plan Assessment/Plan antibiotics : meropenem A 1. klebsiella UTI 2. klebsiella | pseudomonas pneumonia 3. respiratory failure 4. COPD 5. dementia P 1. continue meropenem 2. will follow up cultures Subjective ROS Limited/Unobtainable: Yes Allergies: Coded Allergies: PENICILLINS (Verified Allergy, Unknown, 02/04/18) SULFA (SULFONAMIDE ANTIBIOTICS) (Verified Allergy, Unknown, 02/04/18) Objective Vital Signs Last 24 Hour Vital Signs Date Time Temp Pulse Resp B/P (MAP) Pulse Ox O2 Delivery O2 Flow Rate FiO2 02/11/18 09:47 80 22 139/55 100 Mechanical Ventilator 35 02/11/18 09:08 75 139/55 02/11/18 09:00 35 02/11/18 08:56 100 02/11/18 08:56 72 15 35 02/11/18 08:00 35 02/11/18 08:00 99.2 77 16 114/49 100 Mechanical Ventilator 35 99.2 02/11/18 07:23 79 17 35 02/11/18 07:00 86 18 135/60 100 Mechanical Ventilator 35 02/11/18 06:00 85 18 148/54 100 Mechanical Ventilator 35 02/11/18 05:07 89 19 35 02/11/18 05:00 85 18 155/69 100 Mechanical Ventilator 35 02/11/18 04:00 35 02/11/18 04:00 98.0 83 17 153/66 100 Mechanical Ventilator 35 98.0 02/11/18 04:00 83 02/11/18 04:00 84 02/11/18 03:24 86 18 35 02/11/18 03:00 84 18 119/51 100 Mechanical Ventilator 35 02/11/18 02:00 86 19 123/73 100 Mechanical Ventilator 35 02/11/18 01:29 84 19 35 02/11/18 01:00 85 17 153/66 100 Mechanical Ventilator 35 02/11/18 00:00 98.0 85 17 138/56 100 Mechanical Ventilator 35 98.0 02/11/18 00:00 83 02/10/18 23:25 85 18 35 02/10/18 23:00 84 18 135/58 100 Mechanical Ventilator 35 02/10/18 22:00 84 18 136/66 100 Mechanical Ventilator 35 02/10/18 21:30 82 17 35 02/10/18 21:00 85 17 153/66 100 Mechanical Ventilator 35 02/10/18 20:00 84 02/10/18 20:00 35 02/10/18 20:00 97.5 84 17 122/43 100 Mechanical Ventilator 35 97.5 02/10/18 19:30 85 18 35 02/10/18 19:00 86 19 127/58 100 Mechanical Ventilator 35 02/10/18 18:00 87 19 155/65 100 Mechanical Ventilator 35 02/10/18 17:00 85 19 122/43 100 Mechanical Ventilator 35 02/10/18 16:49 87 19 35 02/10/18 16:15 98.6 02/10/18 16:00 98.8 83 25 139/59 100 Mechanical Ventilator 35 98.8 02/10/18 16:00 75 02/10/18 15:45 98.8 02/10/18 15:02 93 24 35 02/10/18 15:00 35 02/10/18 15:00 97 19 158/92 100 Mechanical Ventilator 35 02/10/18 14:00 89 28 159/68 100 Mechanical Ventilator 35 02/10/18 13:29 89 32 35 02/10/18 13:00 84 27 152/64 100 Mechanical Ventilator 35 02/10/18 12:00 35 02/10/18 12:00 85 02/10/18 12:00 98.6 83 27 139/59 100 Mechanical Ventilator 35 98.6 02/10/18 11:06 81 25 35 02/10/18 11:00 83 25 146/57 100 Mechanical Ventilator 35 02/10/18 11:00 35 Height (Feet): 5 Height (Inches): 6.00 Weight (Pounds): 172 HEENT: other - intubated Respiratory/Chest: lungs clear Cardiovascular: normal rate, regular rhythm, no gallop/murmur Abdomen: soft, non tender, other - GT Extremities: no edema, other - left subclavian Laboratory Tests Test 02/10/18 12:15 02/11/18 05:00 Arterial Blood pH 7.451 (7.350-7.450) Arterial Blood Partial Pressure CO2 36.0 mmHg (35.0-45.0) Arterial Blood Partial Pressure O2 76.0 mmHg (75.0-100.0) Arterial Blood HCO3 24.5 mmol/L (22.0-26.0) Arterial Blood Oxygen Saturation 95.3 % (92.0-98.0) Arterial Blood Base Excess 0.8 Jose Luis Test Positive White Blood Count 9.3 K/UL (4.8-10.8) Red Blood Count 3.30 M/UL (4.20-5.40) L Hemoglobin 11.3 G/DL (12.0-16.0) L Hematocrit 32.9 % (37.0-47.0) L Mean Corpuscular Volume 100 FL (80-99) H Mean Corpuscular Hemoglobin 34.2 PG (27.0-31.0) H Mean Corpuscular Hemoglobin Concent 34.3 G/DL (32.0-36.0) Red Cell Distribution Width 11.8 % (11.6-14.8) Platelet Count 182 K/UL (150-450) Mean Platelet Volume 6.6 FL (6.5-10.1) Neutrophils (%) (Auto) 63.9 % (45.0-75.0) Lymphocytes (%) (Auto) 20.4 % (20.0-45.0) Monocytes (%) (Auto) 10.2 % (1.0-10.0) H Eosinophils (%) (Auto) 4.1 % (0.0-3.0) H Basophils (%) (Auto) 1.3 % (0.0-2.0) Sodium Level 143 MMOL/L (136-145) Potassium Level 3.6 MMOL/L (3.5-5.1) Chloride Level 107 MMOL/L (98-107) Carbon Dioxide Level 25 MMOL/L (21-32) Anion Gap 11 mmol/L (5-15) Blood Urea Nitrogen 8 mg/dL (7-18) Creatinine 0.7 MG/DL (0.55-1.30) Estimat Glomerular Filtration Rate mL/min (>60) Glucose Level 168 MG/DL (74-106) H Calcium Level 9.0 MG/DL (8.5-10.1) Magnesium Level 1.8 MG/DL (1.8-2.4) Total Bilirubin 0.3 MG/DL (0.2-1.0) Aspartate Amino Transf (AST/SGOT) 22 U/L (15-37) Alanine Aminotransferase (ALT/SGPT) 12 U/L (12-78) Alkaline Phosphatase 88 U/L (46-116) Pro-B-Type Natriuretic Peptide 4324 pg/mL (0-125) H Total Protein 7.3 G/DL (6.4-8.2) Albumin 2.7 G/DL (3.4-5.0) L Globulin 4.6 g/dL Albumin/Globulin Ratio 0.6 (1.0-2.7) L Phenytoin (Dilantin) Level 26.6 ug/mL (10-20) H Current Medications Medications (Trade) Dose Ordered Sig/Singh Route PRN Reason Start Time Stop Time Status Last Admin Dose Admin Acetaminophen (Tylenol) 650 mg Q4H PRN GT Mild Pain/Temp > 100.5 02/06/18 15:30 03/08/18 15:29 02/10/18 15:45 Amlodipine Besylate (Norvasc) 5 mg EVERY 12 HOURS ORAL 02/11/18 09:00 03/13/18 08:59 02/11/18 09:08 Chlorhexidine Gluconate (Azra-Hex 2%) 1 applic DAILY@2000 TOPIC 02/07/18 20:00 03/09/18 19:59 02/10/18 19:55 Clonidine HCl (Catapres Tab) 0.1 mg Q4H PRN ORAL For High Blood Pressure 02/08/18 18:30 03/10/18 18:29 02/09/18 03:15 Furosemide (Lasix) 40 mg DAILY IV 02/10/18 09:00 03/12/18 08:59 02/11/18 09:08 Heparin Sodium (Porcine) (Heparin 5000 units/ml) 5,000 units EVERY 12 HOURS SUBQ 02/04/18 21:00 03/06/18 20:59 02/11/18 09:22 Levetiracetam (Keppra) 500 mg Q12HR NG 02/05/18 09:00 03/07/18 08:59 02/11/18 09:07 Lorazepam (Ativan 2mg/ml 1ml) 1 mg Q2H PRN IV For Anxiety 02/04/18 17:00 02/11/18 16:59 02/10/18 15:45 Meropenem 1 gm/ Sodium Chloride 110 ml @ 220 mls/hr Q12HR IVPB 02/10/18 21:00 02/15/18 20:59 02/11/18 09:08 Pantoprazole (Protonix) 40 mg DAILY IVP 02/05/18 12:00 03/07/18 11:59 02/11/18 09:07 RAMY BELLA Feb 11, 2018 10:25"
[2018-02-11] MEDS: Albuterol/Ipratropium 3ml neb HHN PRN (14:37)
[2018-02-11] MEDS: Dyna-Hex 2% Top Sol 2oz TOPIC SCH (19:45)
--- NOTE | 2018-02-11 20:56 | General Progress Note ---
Assessment/Plan Assessment/Plan GI CONSULT Dictated Thank you Rosa Calloway MD Subjective Allergies: Coded Allergies: PENICILLINS (Verified Allergy, Unknown, 02/04/18) SULFA (SULFONAMIDE ANTIBIOTICS) (Verified Allergy, Unknown, 02/04/18) Objective Last 24 Hour Vital Signs Date Time Temp Pulse Resp B/P (MAP) Pulse Ox O2 Delivery O2 Flow Rate FiO2 02/11/18 19:00 80 24 148/60 100 Simple Mask 35 02/11/18 18:00 80 24 147/62 100 Simple Mask 35 02/11/18 17:00 80 25 130/58 100 Simple Mask 35 02/11/18 16:00 99.3 84 26 145/61 100 Simple Mask 35 99.3 02/11/18 16:00 87 02/11/18 15:00 89 23 145/61 100 Simple Mask 35 02/11/18 14:00 87 26 129/74 100 Nasal Cannula 3.0 02/11/18 13:00 Nasal Cannula 3.0 32 02/11/18 13:00 82 25 131/65 100 Nasal Cannula 3.0 02/11/18 12:00 99.2 82 26 133/55 100 Mechanical Ventilator 35 99.2 02/11/18 12:00 79 02/11/18 11:30 84 24 35 02/11/18 11:30 35 02/11/18 11:09 87 28 35 02/11/18 11:00 86 26 124/58 100 Mechanical Ventilator 35 02/11/18 10:00 80 23 124/44 100 Mechanical Ventilator 35 02/11/18 09:47 80 22 139/55 100 Mechanical Ventilator 35 02/11/18 09:08 75 139/55 02/11/18 09:00 35 02/11/18 09:00 76 22 139/55 100 Mechanical Ventilator 35 02/11/18 08:56 100 02/11/18 08:56 72 15 35 02/11/18 08:00 35 02/11/18 08:00 79 02/11/18 08:00 99.2 77 16 114/49 100 Mechanical Ventilator 35 99.2 02/11/18 07:23 79 17 35 02/11/18 07:00 86 18 135/60 100 Mechanical Ventilator 35 02/11/18 06:00 85 18 148/54 100 Mechanical Ventilator 35 02/11/18 05:07 89 19 35 02/11/18 05:00 85 18 155/69 100 Mechanical Ventilator 35 02/11/18 04:00 35 02/11/18 04:00 98.0 83 17 153/66 100 Mechanical Ventilator 35 98.0 02/11/18 04:00 83 02/11/18 04:00 84 02/11/18 03:24 86 18 35 02/11/18 03:00 84 18 119/51 100 Mechanical Ventilator 35 02/11/18 02:00 86 19 123/73 100 Mechanical Ventilator 35 02/11/18 01:29 84 19 35 02/11/18 01:00 85 17 153/66 100 Mechanical Ventilator 35 02/11/18 00:00 98.0 85 17 138/56 100 Mechanical Ventilator 35 98.0 02/11/18 00:00 83 02/10/18 23:25 85 18 35 02/10/18 23:00 84 18 135/58 100 Mechanical Ventilator 35 02/10/18 22:00 84 18 136/66 100 Mechanical Ventilator 35 02/10/18 21:30 82 17 35 02/10/18 21:00 85 17 153/66 100 Mechanical Ventilator 35 Intake and Output 02/10/18 02/11/18 19:00 07:00 Intake Total 656.667 ml 650 ml Output Total 2575 ml 1810 ml Balance -1918.333 ml -1160 ml Free Water 300 ml IV Total 166.667 ml 110 ml Tube Feeding 240 ml 240 ml Other 250 ml Output Urine Total 2375 ml 1760 ml Stool Total 200 ml 50 ml Laboratory Tests 02/11/18 05:00: White Blood Count 9.3, Red Blood Count 3.30L, Hemoglobin 11.3L, Hematocrit 32.9L , Mean Corpuscular Volume 100H, Mean Corpuscular Hemoglobin 34.2H, Mean Corpuscular Hemoglobin Concent 34.3, Red Cell Distribution Width 11.8, Platelet Count 182, Mean Platelet Volume 6.6, Neutrophils (%) (Auto) 63.9, Lymphocytes (% ) (Auto) 20.4, Monocytes (%) (Auto) 10.2H, Eosinophils (%) (Auto) 4.1H, Basophils (%) (Auto) 1.3, Sodium Level 143, Potassium Level 3.6, Chloride Level 107, Carbon Dioxide Level 25, Anion Gap 11, Blood Urea Nitrogen 8, Creatinine 0.7, Estimat Glomerular Filtration Rate , Glucose Level 168H, Calcium Level 9.0 , Magnesium Level 1.8, Total Bilirubin 0.3, Aspartate Amino Transf (AST/SGOT) 22 , Alanine Aminotransferase (ALT/SGPT) 12, Alkaline Phosphatase 88, Pro-B-Type Natriuretic Peptide 4324H, Total Protein 7.3, Albumin 2.7L, Globulin 4.6, Albumin/Globulin Ratio 0.6L, Phenytoin (Dilantin) Level 26.6H 02/11/18 12:05: Arterial Blood pH 7.529H, Arterial Blood Partial Pressure CO2 31.2L, Arterial Blood Partial Pressure O2 145.1H, Arterial Blood HCO3 25.4, Arterial Blood Oxygen Saturation 98.9H, Arterial Blood Base Excess 3.1, Jose Luis Test Positive Height (Feet): 5 Height (Inches): 6.00 Weight (Pounds): 172 HEIDY CALLOWAY Feb 11, 2018 20:56
[2018-02-12] VITALS (24 sets, daily range): BP systolic 99–177; BP diastolic 43–97
[2018-02-12] MEDS: Albuterol/Ipratropium 3ml neb HHN PRN (03:27)
--- NOTE | 2018-02-12 07:33 | General Progress Note ---
Assessment/Plan Problem List: (1) Respiratory distress ICD Codes: R06.03 - Acute respiratory distress SNOMED: 356533506 (2) Atrial fibrillation ICD Codes: I48.91 - Unspecified atrial fibrillation SNOMED: 25121522 Qualifiers: Qualified Codes: I48.2 - Chronic atrial fibrillation (3) Respiratory failure ICD Codes: J96.90 - Respiratory failure, unspecified, unspecified whether with hypoxia or hypercapnia SNOMED: 596860442 Qualifiers: Qualified Codes: J96.01 - Acute respiratory failure with hypoxia; J96.02 - Acute respiratory failure with hypercapnia (4) UTI (urinary tract infection) ICD Codes: N39.0 - Urinary tract infection, site not specified SNOMED: 39356622 Qualifiers: Qualified Codes: N30.00 - Acute cystitis without hematuria Status: stable, progressing Assessment/Plan iv abx per ID resp rx gt feeds hold dilantin- monitor follow up labs po lasix to bessy Subjective ROS Limited/Unobtainable: No Constitutional: Reports: malaise, weakness HEENT: Reports: no symptoms Cardiovascular: Reports: no symptoms Respiratory: Reports: no symptoms Gastrointestinal/Abdominal: Reports: difficulty swallowing Genitourinary: Reports: no symptoms Neurologic/Psychiatric: Reports: pre-existing deficit Endocrine: Reports: no symptoms Hematologic/Lymphatic: Reports: anemia Allergies: Coded Allergies: PENICILLINS (Verified Allergy, Unknown, 02/04/18) SULFA (SULFONAMIDE ANTIBIOTICS) (Verified Allergy, Unknown, 02/04/18) All Systems: reviewed and negative except above Subjective extubated. no events. awake but nonverbal at baseline. no sob Objective Last 24 Hour Vital Signs Date Time Temp Pulse Resp B/P (MAP) Pulse Ox O2 Delivery O2 Flow Rate FiO2 02/12/18 07:00 70 19 122/49 100 Nasal Cannula 2.0 02/12/18 06:00 74 24 107/48 97 Nasal Cannula 2.0 02/12/18 05:00 78 24 99/44 93 Nasal Cannula 2.0 02/12/18 04:04 82 02/12/18 04:00 98.6 84 25 126/54 97 Nasal Cannula 2.0 98.6 02/12/18 03:25 83 24 99 Nasal Cannula 2.0 28 02/12/18 03:16 164/61 02/12/18 03:15 28 02/12/18 03:15 88 26 98 Nasal Cannula 2.0 28 02/12/18 03:00 77 30 164/61 100 Nasal Cannula 2.0 02/12/18 02:00 76 25 114/78 97 Nasal Cannula 2.0 02/12/18 01:00 83 20 150/58 100 Nasal Cannula 2.0 02/12/18 00:05 98.7 98.7 02/12/18 00:00 87 02/12/18 00:00 87 20 105/64 100 Nasal Cannula 2.0 02/11/18 23:00 76 20 132/51 100 Nasal Cannula 2.0 02/11/18 22:00 86 27 149/56 99 Simple Mask 35 02/11/18 21:00 82 25 153/63 100 Simple Mask 35 02/11/18 20:57 82 162/66 02/11/18 20:00 99.2 75 25 128/54 100 Simple Mask 35 99.2 02/11/18 20:00 95 02/11/18 19:55 76 02/11/18 19:30 100 Simple Mask 6.0 02/11/18 19:30 Simple Mask 6.0 02/11/18 19:20 80 24 Simple Mask 6.0 02/11/18 19:00 80 24 148/60 100 Simple Mask 35 02/11/18 18:00 80 24 147/62 100 Simple Mask 35 02/11/18 17:00 80 25 130/58 100 Simple Mask 35 18 16:00 99.3 84 26 145/61 100 Simple Mask 35 99.3 02/11/18 16:00 87 02/11/18 15:00 89 23 145/61 100 Simple Mask 35 02/11/18 14:00 87 26 129/74 100 Nasal Cannula 3.0 02/11/18 13:00 Nasal Cannula 3.0 32 02/11/18 13:00 82 25 131/65 100 Nasal Cannula 3.0 02/11/18 12:00 99.2 82 26 133/55 100 Mechanical Ventilator 35 99.2 02/11/18 12:00 79 02/11/18 11:30 84 24 35 02/11/18 11:30 35 18 11:09 87 28 35 18 11:00 86 26 124/58 100 Mechanical Ventilator 35 02/11/18 10:00 80 23 124/44 100 Mechanical Ventilator 35 02/11/18 09:47 80 22 139/55 100 Mechanical Ventilator 35 02/11/18 09:08 75 139/55 02/11/18 09:00 35 02/11/18 09:00 76 22 139/55 100 Mechanical Ventilator 35 02/11/18 08:56 100 02/11/18 08:56 72 15 35 02/11/18 08:00 35 02/11/18 08:00 79 02/11/18 08:00 99.2 77 16 114/49 100 Mechanical Ventilator 35 99.2 Intake and Output 02/11/18 02/12/18 19:00 07:00 Intake Total 300 ml 590 ml Output Total 1965 ml 1480 ml Balance -1665 ml -890 ml Free Water 150 ml IV Total 110 ml 110 ml Tube Feeding 40 ml 230 ml Other 150 ml 100 ml Output Urine Total 1965 ml 1480 ml # Bowel Movements 1 5 Laboratory Tests 02/11/18 12:05: Arterial Blood pH 7.529H, Arterial Blood Partial Pressure CO2 31.2L, Arterial Blood Partial Pressure O2 145.1H, Arterial Blood HCO3 25.4, Arterial Blood Oxygen Saturation 98.9H, Arterial Blood Base Excess 3.1, Jose Luis Test Positive Height (Feet): 5 Height (Inches): 6.00 Weight (Pounds): 166 Objective General Appearance: WD/WN, lethargic, confused Neck: supple Cardiovascular: regular rhythm Respiratory/Chest: clear edwige Abdomen: normal bowel sounds, non tender, soft, no organomegaly Edema: no edema noted Arm (L), no edema noted Arm (R), no edema noted Leg (L), no edema noted Leg (R), no edema noted Pedal (L), no edema noted Pedal (R), no edema noted Generalized LAURA ABRAMS Feb 12, 2018 07:33
--- NOTE | 2018-02-12 07:45 | Consultation ---
DATE OF CONSULTATION: 02/11/2018 GASTROENTEROLOGY CONSULTATION CONSULTING PHYSICIAN: Sarah Calloway M.D. CHIEF COMPLAINT: I was asked to see this patient by Dr. Michael Sprague for gastrostomy tube evaluation, nutrition and anemia. HISTORY OF PRESENT ILLNESS: The patient is an unfortunate 87-year-old woman with a history of dementia, stroke, hypertension, and congestive heart failure, who was brought in from a nursing facility due to respiratory distress. The patient was noted to be in distress and was intubated in the emergency room. She was subsequently intubated. The gastrostomy tube was occluded and could not be cleared by the nursing staff. In addition, the patient has anemia of unclear etiology. There is no history of GI bleeding in this patient's chart. The patient herself is unable to provide any history. Most of the information is only available from the chart. PAST MEDICAL HISTORY: History of dementia, stroke, hypertension, congestive heart failure, respiratory failure, dysphagia, and status post gastrostomy tube placement. FAMILY HISTORY: Not available. SOCIAL HISTORY: The patient lives in a correction. No recent history of smoking or drinking. ALLERGIES: Penicillin and sulfa. MEDICATIONS: See chart list for details. REVIEW OF SYSTEMS: Otherwise negative. PHYSICAL EXAMINATION: GENERAL: This is a pleasant woman, seen in the ICU. HEENT: Normocephalic and atraumatic. Dentition was poor. NECK: Supple. CHEST: Coarse breath sounds and scattered rhonchi. CARDIOVASCULAR: Revealed regular rate. ABDOMEN: Soft, flat with gastrostomy tube, which was occluded. It was removed at bedside and replacement of 20-Malian gastrostomy catheter, which was secured and the position was verified. EXTREMITIES: Revealed no edema. LABORATORY AND DIAGNOSTIC DATA: Laboratory data was noted. ASSESSMENT: 1. This patient has dysphagia with the gastrostomy tube, which was occluded, but now it is replaced and should be functional. I reviewed the gastrostomy tube care with the nursing staff who will continue flushing the catheter. The catheter will have to be changed every few months. 2. The patient's anemia of unclear etiology could be due to chronic disease. Given the patient's overall health and age, we need to follow the patient conservatively. If there is evidence of active gastrointestinal bleeding, further intervention can be considered. Nighttime histamine 2 sridhar can be given prophylactically. RECOMMENDATIONS: Per above discussion and per orders written in the chart. Thank you for asking me to participate in the care of this patient. Sarah Calloway M.D. DR: RAEANN JOB#: [id number] CC:
[2018-02-12 08:05] LABS: BASOPHILS % (AUTO) 0.8 % (0.0-2.0); EOSINOPHILS % (AUTO) 7.1 % (0.0-3.0); HEMATOCRIT 35.6 % (37.0-47.0); LYMPHOCYTES % (AUTO) 22.8 % (20.0-45.0); MEAN CORPUSCULAR VOLUME 101 FL (80-99); NEUTROPHILS % (AUTO) 59.2 % (45.0-75.0); PLATELET COUNT 205 K/UL (150-450); RED BLOOD COUNT 3.52 M/UL (4.20-5.40); RED CELL DISTRIBUTION WIDTH 12.2 % (11.6-14.8); WHITE BLOOD COUNT 6.4 K/UL (4.8-10.8)
[2018-02-12 08:31] LABS: ALANINE AMINOTRANSFERASE 12 U/L (12-78); ALBUMIN 2.6 G/DL (3.4-5.0); ALBUMIN/GLOBULIN RATIO 0.6 (1.0-2.7); ALKALINE PHOSPHATASE 82 U/L (46-116); ANION GAP 4 mmol/L (5-15); ASPARTATE AMINO TRANSFERASE 22 U/L (15-37); BILIRUBIN,TOTAL 0.3 MG/DL (0.2-1.0); BLOOD UREA NITROGEN 7 mg/dL (7-18); CALCIUM 8.8 MG/DL (8.5-10.1); CARBON DIOXIDE 31 MMOL/L (21-32); CHLORIDE 107 MMOL/L (98-107); CREATININE 0.7 MG/DL (0.55-1.30); POTASSIUM 3.6 MMOL/L (3.5-5.1); SODIUM 142 MMOL/L (136-145)
[2018-02-12] MEDS: levETIRAcetam 500mg/5ml Liquid NG SCH ×2 (09:00→20:38)
[2018-02-12] MEDS: Pantoprazole Inj IVP SCH (09:00)
[2018-02-12] MEDS: Furosemide 40mg tab ORAL SCH (09:00)
[2018-02-12] MEDS: Heparin 5000 units/ml inj SUBQ SCH ×2 (09:00→20:41)
[2018-02-12] MEDS: Meropenem 1 GM in NS 110 ML IVPB SCH ×2 (09:00→20:38)
--- NOTE | 2018-02-12 09:45 | Progress Note ---
DATE: 02/11/2018 CARDIOLOGY PROGRESS NOTE SUBJECTIVE: The patient remains on ventilator support, ongoing weaning efforts, improving. She remains critical and guarded. However, monitor is sinus. Atrial ectopy seen. OBJECTIVE: LUNGS: Coarse breath sounds. Thin ET tube secretions. HEART: Regular rhythm and rate. Normal S1 and S2. ABDOMEN: Soft. G-tube intact. EXTREMITIES: Trace edema. LABORATORY DATA: White count 9.3 and hemoglobin 11.3. Potassium 3.6 and magnesium 1.8. Pro-natriuretic peptide 4300. IMPRESSION: 1. Remains critical. 2. Resolved Dilantin toxicity. PLAN: 1. Continue weaning. 2. Replace potassium. 3. Diurese. 4. Antimicrobials. 5. Deep venous thrombosis prophylaxis. 6. Resume Dilantin. Brayan Card M.D. DR: Yolis JOB#: [id number] CC:
--- NOTE | 2018-02-12 11:55 | Infectious Diseases Prog Note ---
Assessment/Plan Assessment/Plan A Aspiration pneumonia with Pseudomonas & Klebsiella UTI with Klebsiella ESBL Respiratory failure COPD Dementia P: Continue Meropenem Will f/u cultures Subjective ROS Limited/Unobtainable: Yes Allergies: Coded Allergies: PENICILLINS (Verified Allergy, Unknown, 02/04/18) SULFA (SULFONAMIDE ANTIBIOTICS) (Verified Allergy, Unknown, 02/04/18) Objective Vital Signs Last 24 Hour Vital Signs Date Time Temp Pulse Resp B/P (MAP) Pulse Ox O2 Delivery O2 Flow Rate FiO2 02/12/18 11:00 89 18 133/60 98 Nasal Cannula 2.0 02/12/18 10:00 92 18 135/57 96 Nasal Cannula 2.0 02/12/18 09:00 106 19 177/97 96 Nasal Cannula 2.0 02/12/18 09:00 70 138/48 02/12/18 08:00 94 19 125/68 100 Nasal Cannula 2.0 02/12/18 08:00 94 02/12/18 07:05 71 18 Mechanical Ventilator 28 02/12/18 07:05 98 Nasal Cannula 2.0 28 02/12/18 07:05 Nasal Cannula 2.0 28 02/12/18 07:00 70 19 122/49 100 Nasal Cannula 2.0 02/12/18 06:00 74 24 107/48 97 Nasal Cannula 2.0 02/12/18 05:00 78 24 99/44 93 Nasal Cannula 2.0 02/12/18 04:04 82 02/12/18 04:00 98.6 84 25 126/54 97 Nasal Cannula 2.0 98.6 02/12/18 03:25 83 24 99 Nasal Cannula 2.0 28 02/12/18 03:16 164/61 02/12/18 03:15 28 02/12/18 03:15 88 26 98 Nasal Cannula 2.0 28 02/12/18 03:00 77 30 164/61 100 Nasal Cannula 2.0 02/12/18 02:00 76 25 114/78 97 Nasal Cannula 2.0 02/12/18 01:00 83 20 150/58 100 Nasal Cannula 2.0 02/12/18 00:05 98.7 98.7 02/12/18 00:00 87 02/12/18 00:00 87 20 105/64 100 Nasal Cannula 2.0 02/11/18 23:00 76 20 132/51 100 Nasal Cannula 2.0 02/11/18 22:00 86 27 149/56 99 Simple Mask 35 02/11/18 21:00 82 25 153/63 100 Simple Mask 35 02/11/18 20:57 82 162/66 02/11/18 20:00 99.2 75 25 128/54 100 Simple Mask 35 99.2 02/11/18 20:00 95 02/11/18 19:55 76 02/11/18 19:30 100 Simple Mask 6.0 02/11/18 19:30 Simple Mask 6.0 02/11/18 19:20 80 24 Simple Mask 6.0 02/11/18 19:00 80 24 148/60 100 Simple Mask 35 02/11/18 18:00 80 24 147/62 100 Simple Mask 35 02/11/18 17:00 80 25 130/58 100 Simple Mask 35 02/11/18 16:00 99.3 84 26 145/61 100 Simple Mask 35 99.3 02/11/18 16:00 87 02/11/18 15:00 89 23 145/61 100 Simple Mask 35 02/11/18 14:00 87 26 129/74 100 Nasal Cannula 3.0 02/11/18 13:00 Nasal Cannula 3.0 32 02/11/18 13:00 82 25 131/65 100 Nasal Cannula 3.0 02/11/18 12:00 99.2 82 26 133/55 100 Mechanical Ventilator 35 99.2 02/11/18 12:00 79 Height (Feet): 5 Height (Inches): 6.00 Weight (Pounds): 166 General Appearance: no acute distress HEENT: mucous membranes moist Respiratory/Chest: rhonchi - bilaterally, other - O2 by nasal cannula Cardiovascular: normal rate, other - Left subclavian central line Abdomen: soft, non tender, other - GT feeding Extremities: no edema Neurologic/Psychiatric: unresponsiveness Laboratory Tests Test 02/11/18 12:05 02/12/18 07:40 02/12/18 08:02 Arterial Blood pH 7.529 (7.350-7.450) 7.464 (7.350-7.450) Arterial Blood Partial Pressure CO2 31.2 mmHg (35.0-45.0) L 36.6 mmHg (35.0-45.0) Arterial Blood Partial Pressure O2 145.1 mmHg (75.0-100.0) H 113.8 mmHg (75.0-100.0) H Arterial Blood HCO3 25.4 mmol/L (22.0-26.0) 25.7 mmol/L (22.0-26.0) Arterial Blood Oxygen Saturation 98.9 % (92.0-98.0) H 97.8 % (92.0-98.0) Arterial Blood Base Excess 3.1 2.0 Jose Luis Test Positive Positive White Blood Count 6.4 K/UL (4.8-10.8) Red Blood Count 3.52 M/UL (4.20-5.40) L Hemoglobin 12.0 G/DL (12.0-16.0) Hematocrit 35.6 % (37.0-47.0) L Mean Corpuscular Volume 101 FL (80-99) H Mean Corpuscular Hemoglobin 34.1 PG (27.0-31.0) H Mean Corpuscular Hemoglobin Concent 33.6 G/DL (32.0-36.0) Red Cell Distribution Width 12.2 % (11.6-14.8) Platelet Count 205 K/UL (150-450) Mean Platelet Volume 7.3 FL (6.5-10.1) Neutrophils (%) (Auto) 59.2 % (45.0-75.0) Lymphocytes (%) (Auto) 22.8 % (20.0-45.0) Monocytes (%) (Auto) 10.0 % (1.0-10.0) Eosinophils (%) (Auto) 7.1 % (0.0-3.0) H Basophils (%) (Auto) 0.8 % (0.0-2.0) Sodium Level 142 MMOL/L (136-145) Potassium Level 3.6 MMOL/L (3.5-5.1) Chloride Level 107 MMOL/L (98-107) Carbon Dioxide Level 31 MMOL/L (21-32) Anion Gap 4 mmol/L (5-15) L Blood Urea Nitrogen 7 mg/dL (7-18) Creatinine 0.7 MG/DL (0.55-1.30) Estimat Glomerular Filtration Rate mL/min (>60) Glucose Level 158 MG/DL (74-106) H Calcium Level 8.8 MG/DL (8.5-10.1) Magnesium Level 1.7 MG/DL (1.8-2.4) L Total Bilirubin 0.3 MG/DL (0.2-1.0) Aspartate Amino Transf (AST/SGOT) 22 U/L (15-37) Alanine Aminotransferase (ALT/SGPT) 12 U/L (12-78) Alkaline Phosphatase 82 U/L (46-116) Total Protein 7.1 G/DL (6.4-8.2) Albumin 2.6 G/DL (3.4-5.0) L Globulin 4.5 g/dL Albumin/Globulin Ratio 0.6 (1.0-2.7) L Phenytoin (Dilantin) Level 18.8 ug/mL (10-20) Current Medications Medications (Trade) Dose Ordered Sig/Singh Route PRN Reason Start Time Stop Time Status Last Admin Dose Admin Acetaminophen (Tylenol) 650 mg Q4H PRN GT Mild Pain/Temp > 100.5 02/06/18 15:30 03/08/18 15:29 02/10/18 15:45 Albuterol/ Ipratropium (Albuterol/ Ipratropium) 3 ml Q4HRT PRN HHN Bronchospasm 02/11/18 14:30 02/16/18 14:29 02/12/18 03:27 Amlodipine Besylate (Norvasc) 5 mg EVERY 12 HOURS ORAL 02/11/18 09:00 03/13/18 08:59 02/12/18 09:00 Chlorhexidine Gluconate (Azra-Hex 2%) 1 applic DAILY@2000 TOPIC 02/07/18 20:00 03/09/18 19:59 02/11/18 19:45 Clonidine HCl (Catapres Tab) 0.1 mg Q4H PRN ORAL For High Blood Pressure 02/08/18 18:30 03/10/18 18:29 02/12/18 03:16 Furosemide (Lasix) 40 mg DAILY ORAL 02/12/18 09:00 03/14/18 08:59 02/12/18 09:00 Heparin Sodium (Porcine) (Heparin 5000 units/ml) 5,000 units EVERY 12 HOURS SUBQ 02/04/18 21:00 03/06/18 20:59 02/11/18 20:58 Levetiracetam (Keppra) 500 mg Q12HR NG 02/05/18 09:00 03/07/18 08:59 02/12/18 09:00 Meropenem 1 gm/ Sodium Chloride 110 ml @ 220 mls/hr Q12HR IVPB 02/10/18 21:00 02/15/18 20:59 02/12/18 09:00 Pantoprazole (Protonix) 40 mg DAILY IVP 02/05/18 12:00 03/07/18 11:59 02/12/18 09:00 DEE CORLEY Feb 12, 2018 11:55
--- NOTE | 2018-02-12 12:12 | General Progress Note ---
Assessment/Plan Assessment/Plan Assessment - dysphagia - s/p GT replacement - anemia, improving - OBS Recommendations - advance TF - Elevate HOB - Monitor CBC Subjective Allergies: Coded Allergies: PENICILLINS (Verified Allergy, Unknown, 02/04/18) SULFA (SULFONAMIDE ANTIBIOTICS) (Verified Allergy, Unknown, 02/04/18) Subjective non communicative seen in ICU TF at 15/hr d/w staff electrical engineer Objective Last 24 Hour Vital Signs Date Time Temp Pulse Resp B/P (MAP) Pulse Ox O2 Delivery O2 Flow Rate FiO2 02/12/18 11:00 89 18 133/60 98 Nasal Cannula 2.0 02/12/18 10:00 92 18 135/57 96 Nasal Cannula 2.0 02/12/18 09:00 106 19 177/97 96 Nasal Cannula 2.0 02/12/18 09:00 70 138/48 02/12/18 08:00 94 19 125/68 100 Nasal Cannula 2.0 02/12/18 08:00 94 02/12/18 07:05 71 18 Mechanical Ventilator 28 02/12/18 07:05 98 Nasal Cannula 2.0 28 02/12/18 07:05 Nasal Cannula 2.0 28 02/12/18 07:00 70 19 122/49 100 Nasal Cannula 2.0 02/12/18 06:00 74 24 107/48 97 Nasal Cannula 2.0 02/12/18 05:00 78 24 99/44 93 Nasal Cannula 2.0 02/12/18 04:04 82 02/12/18 04:00 98.6 84 25 126/54 97 Nasal Cannula 2.0 98.6 02/12/18 03:25 83 24 99 Nasal Cannula 2.0 28 02/12/18 03:16 164/61 02/12/18 03:15 28 02/12/18 03:15 88 26 98 Nasal Cannula 2.0 28 02/12/18 03:00 77 30 164/61 100 Nasal Cannula 2.0 02/12/18 02:00 76 25 114/78 97 Nasal Cannula 2.0 02/12/18 01:00 83 20 150/58 100 Nasal Cannula 2.0 02/12/18 00:05 98.7 98.7 02/12/18 00:00 87 02/12/18 00:00 87 20 105/64 100 Nasal Cannula 2.0 02/11/18 23:00 76 20 132/51 100 Nasal Cannula 2.0 02/11/18 22:00 86 27 149/56 99 Simple Mask 35 02/11/18 21:00 82 25 153/63 100 Simple Mask 35 02/11/18 20:57 82 162/66 02/11/18 20:00 99.2 75 25 128/54 100 Simple Mask 35 99.2 02/11/18 20:00 95 02/11/18 19:55 76 02/11/18 19:30 100 Simple Mask 6.0 02/11/18 19:30 Simple Mask 6.0 02/11/18 19:20 80 24 Simple Mask 6.0 02/11/18 19:00 80 24 148/60 100 Simple Mask 35 02/11/18 18:00 80 24 147/62 100 Simple Mask 35 02/11/18 17:00 80 25 130/58 100 Simple Mask 35 02/11/18 16:00 99.3 84 26 145/61 100 Simple Mask 35 99.3 02/11/18 16:00 87 02/11/18 15:00 89 23 145/61 100 Simple Mask 35 02/11/18 14:00 87 26 129/74 100 Nasal Cannula 3.0 02/11/18 13:00 Nasal Cannula 3.0 32 02/11/18 13:00 82 25 131/65 100 Nasal Cannula 3.0 Intake and Output 02/11/18 02/12/18 19:00 07:00 Intake Total 300 ml 590 ml Output Total 1965 ml 1480 ml Balance -1665 ml -890 ml Free Water 150 ml IV Total 110 ml 110 ml Tube Feeding 40 ml 230 ml Other 150 ml 100 ml Output Urine Total 1965 ml 1480 ml # Bowel Movements 1 5 Laboratory Tests 02/12/18 07:40: White Blood Count 6.4, Red Blood Count 3.52L, Hemoglobin 12.0, Hematocrit 35.6L , Mean Corpuscular Volume 101H, Mean Corpuscular Hemoglobin 34.1H, Mean Corpuscular Hemoglobin Concent 33.6, Red Cell Distribution Width 12.2, Platelet Count 205, Mean Platelet Volume 7.3, Neutrophils (%) (Auto) 59.2, Lymphocytes (% ) (Auto) 22.8, Monocytes (%) (Auto) 10.0, Eosinophils (%) (Auto) 7.1H, Basophils (%) (Auto) 0.8, Sodium Level 142, Potassium Level 3.6, Chloride Level 107, Carbon Dioxide Level 31, Anion Gap 4L, Blood Urea Nitrogen 7, Creatinine 0.7, Estimat Glomerular Filtration Rate , Glucose Level 158H, Calcium Level 8.8 , Magnesium Level 1.7L, Total Bilirubin 0.3, Aspartate Amino Transf (AST/SGOT) 22, Alanine Aminotransferase (ALT/SGPT) 12, Alkaline Phosphatase 82, Total Protein 7.1, Albumin 2.6L, Globulin 4.5, Albumin/Globulin Ratio 0.6L, Phenytoin (Dilantin) Level 18.8 02/12/18 08:02: Arterial Blood pH 7.464H, Arterial Blood Partial Pressure CO2 36.6, Arterial Blood Partial Pressure O2 113.8H, Arterial Blood HCO3 25.7, Arterial Blood Oxygen Saturation 97.8, Arterial Blood Base Excess 2.0, Jose Luis Test Positive Height (Feet): 5 Height (Inches): 6.00 Weight (Pounds): 166 Objective Elderly AA woman NCAT supple CTA RRR soft ND NT, (+) GT no edema OBS HEIDY OCAMPO Feb 12, 2018 12:12
--- NOTE | 2018-02-12 16:50 | Critical Care Progress Note ---
Assessment/Plan Assessment/Plan IMPRESSIONS: 1. Chronic obstructive pulmonary disease with acute exacerbation 2. Acute on chronic encephalopathy. 3. Evidence of metabolic acidosis 4. Evidence of significant bronchospasm. resolved 5. lyte imbalance 6. Acute renal failure. 7. protein calorie malnutrition 8. possible aspiration 9. pneumonia 10. possible pulmonary edema with cxr and BNP PLAN care noted IV antibiotics noted antihypertensives monitor hemodynamics monitor care cultures reviewed respiratory care as outlined Ventilatory support off and monitor reviewed meds supportive care suction as needed oxygen therapy prognosis guarded aspiration precautions elevate head for change feeds tolerate monitor positive fluid balance medications/laboratory data/nursing notes/ICU care reviewed in detail note reviewed and edited care discussed with RN and RT ICU time spent 38 minutes Critical Care - Subjective Interval Events: care noted seen earlier now extubated on oxygen at low flow and stable ROS Limited/Unobtainable: Yes Condition: critical EKG Rhythm: Sinus Rhythm Residuals: minimal Tube Feeding Tolerated: yes I&O: Intake and Output 02/11/18 02/12/18 19:00 07:00 Intake Total 300 ml 590 ml Output Total 1965 ml 1480 ml Balance -1665 ml -890 ml Free Water 150 ml IV Total 110 ml 110 ml Tube Feeding 40 ml 230 ml Other 150 ml 100 ml Output Urine Total 1965 ml 1480 ml # Bowel Movements 1 5 Critical Care - Objective ET-Tube: 7.5 ET Position: 23 Last 24 Hour Vital Signs Date Time Temp Pulse Resp B/P (MAP) Pulse Ox O2 Delivery O2 Flow Rate FiO2 02/12/18 12:00 98.7 73 17 106/43 97 Nasal Cannula 2.0 98.7 02/12/18 12:00 77 02/12/18 11:00 89 18 133/60 98 Nasal Cannula 2.0 02/12/18 10:00 92 18 135/57 96 Nasal Cannula 2.0 02/12/18 09:00 106 19 177/97 96 Nasal Cannula 2.0 02/12/18 09:00 70 138/48 02/12/18 08:00 94 19 125/68 100 Nasal Cannula 2.0 02/12/18 08:00 94 02/12/18 07:05 71 18 Mechanical Ventilator 28 02/12/18 07:05 98 Nasal Cannula 2.0 28 02/12/18 07:05 Nasal Cannula 2.0 28 02/12/18 07:00 70 19 122/49 100 Nasal Cannula 2.0 02/12/18 06:00 74 24 107/48 97 Nasal Cannula 2.0 02/12/18 05:00 78 24 99/44 93 Nasal Cannula 2.0 02/12/18 04:04 82 02/12/18 04:00 98.6 84 25 126/54 97 Nasal Cannula 2.0 98.6 02/12/18 03:25 83 24 99 Nasal Cannula 2.0 28 02/12/18 03:16 164/61 02/12/18 03:15 28 02/12/18 03:15 88 26 98 Nasal Cannula 2.0 28 02/12/18 03:00 77 30 164/61 100 Nasal Cannula 2.0 02/12/18 02:00 76 25 114/78 97 Nasal Cannula 2.0 02/12/18 01:00 83 20 150/58 100 Nasal Cannula 2.0 02/12/18 00:05 98.7 98.7 02/12/18 00:00 87 02/12/18 00:00 87 20 105/64 100 Nasal Cannula 2.0 02/11/18 23:00 76 20 132/51 100 Nasal Cannula 2.0 02/11/18 22:00 86 27 149/56 99 Simple Mask 35 02/11/18 21:00 82 25 153/63 100 Simple Mask 35 02/11/18 20:57 82 162/66 02/11/18 20:00 99.2 75 25 128/54 100 Simple Mask 35 99.2 02/11/18 20:00 95 02/11/18 19:55 76 02/11/18 19:30 100 Simple Mask 6.0 02/11/18 19:30 Simple Mask 6.0 02/11/18 19:20 80 24 Simple Mask 6.0 02/11/18 19:00 80 24 148/60 100 Simple Mask 35 02/11/18 18:00 80 24 147/62 100 Simple Mask 35 02/11/18 17:00 80 25 130/58 100 Simple Mask 35 Labs: Labs Test 02/09/18 19:45 18 05:00 02/10/18 12:15 02/11/18 05:00 Vancomycin Level Trough 13.6 ug/mL (5.0-12.0) White Blood Count 6.6 K/UL (4.8-10.8) 9.3 K/UL (4.8-10.8) Red Blood Count 2.92 M/UL (4.20-5.40) 3.30 M/UL (4.20-5.40) Hemoglobin 10.6 G/DL (12.0-16.0) 11.3 G/DL (12.0-16.0) Hematocrit 28.7 % (37.0-47.0) 32.9 % (37.0-47.0) Mean Corpuscular Volume 98 FL (80-99) 100 FL (80-99) Mean Corpuscular Hemoglobin 36.1 PG (27.0-31.0) 34.2 PG (27.0-31.0) Mean Corpuscular Hemoglobin Concent 36.8 G/DL (32.0-36.0) 34.3 G/DL (32.0-36.0) Red Cell Distribution Width 11.8 % (11.6-14.8) 11.8 % (11.6-14.8) Platelet Count 162 K/UL (150-450) 182 K/UL (150-450) Mean Platelet Volume 8.4 FL (6.5-10.1) 6.6 FL (6.5-10.1) Neutrophils (%) (Auto) 54.2 % (45.0-75.0) 63.9 % (45.0-75.0) Lymphocytes (%) (Auto) 27.7 % (20.0-45.0) 20.4 % (20.0-45.0) Monocytes (%) (Auto) 10.3 % (1.0-10.0) 10.2 % (1.0-10.0) Eosinophils (%) (Auto) 7.2 % (0.0-3.0) 4.1 % (0.0-3.0) Basophils (%) (Auto) 0.6 % (0.0-2.0) 1.3 % (0.0-2.0) Sodium Level 139 MMOL/L (136-145) 143 MMOL/L (136-145) Potassium Level 3.4 MMOL/L (3.5-5.1) 3.6 MMOL/L (3.5-5.1) Chloride Level 107 MMOL/L (98-107) 107 MMOL/L (98-107) Carbon Dioxide Level 24 MMOL/L (21-32) 25 MMOL/L (21-32) Anion Gap 8 mmol/L (5-15) 11 mmol/L (5-15) Blood Urea Nitrogen 6 mg/dL (7-18) 8 mg/dL (7-18) Creatinine 0.6 MG/DL (0.55-1.30) 0.7 MG/DL (0.55-1.30) Estimat Glomerular Filtration Rate mL/min (>60) mL/min (>60) Glucose Level 124 MG/DL (74-106) 168 MG/DL (74-106) Calcium Level 8.3 MG/DL (8.5-10.1) 9.0 MG/DL (8.5-10.1) Arterial Blood pH 7.451 (7.350-7.450) Arterial Blood Partial Pressure CO2 36.0 mmHg (35.0-45.0) Arterial Blood Partial Pressure O2 76.0 mmHg (75.0-100.0) Arterial Blood HCO3 24.5 mmol/L (22.0-26.0) Arterial Blood Oxygen Saturation 95.3 % (92.0-98.0) Arterial Blood Base Excess 0.8 Jose Luis Test Positive Magnesium Level 1.8 MG/DL (1.8-2.4) Total Bilirubin 0.3 MG/DL (0.2-1.0) Aspartate Amino Transf (AST/SGOT) 22 U/L (15-37) Alanine Aminotransferase (ALT/SGPT) 12 U/L (12-78) Alkaline Phosphatase 88 U/L (46-116) Pro-B-Type Natriuretic Peptide 4324 pg/mL (0-125) Total Protein 7.3 G/DL (6.4-8.2) Albumin 2.7 G/DL (3.4-5.0) Globulin 4.6 g/dL Albumin/Globulin Ratio 0.6 (1.0-2.7) Phenytoin (Dilantin) Level 26.6 ug/mL (10-20) Test 02/11/18 12:05 02/12/18 07:40 02/12/18 08:02 Arterial Blood pH 7.529 (7.350-7.450) 7.464 (7.350-7.450) Arterial Blood Partial Pressure CO2 31.2 mmHg (35.0-45.0) 36.6 mmHg (35.0-45.0) Arterial Blood Partial Pressure O2 145.1 mmHg (75.0-100.0) 113.8 mmHg (75.0-100.0) Arterial Blood HCO3 25.4 mmol/L (22.0-26.0) 25.7 mmol/L (22.0-26.0) Arterial Blood Oxygen Saturation 98.9 % (92.0-98.0) 97.8 % (92.0-98.0) Arterial Blood Base Excess 3.1 2.0 Jose Luis Test Positive Positive White Blood Count 6.4 K/UL (4.8-10.8) Red Blood Count 3.52 M/UL (4.20-5.40) Hemoglobin 12.0 G/DL (12.0-16.0) Hematocrit 35.6 % (37.0-47.0) Mean Corpuscular Volume 101 FL (80-99) Mean Corpuscular Hemoglobin 34.1 PG (27.0-31.0) Mean Corpuscular Hemoglobin Concent 33.6 G/DL (32.0-36.0) Red Cell Distribution Width 12.2 % (11.6-14.8) Platelet Count 205 K/UL (150-450) Mean Platelet Volume 7.3 FL (6.5-10.1) Neutrophils (%) (Auto) 59.2 % (45.0-75.0) Lymphocytes (%) (Auto) 22.8 % (20.0-45.0) Monocytes (%) (Auto) 10.0 % (1.0-10.0) Eosinophils (%) (Auto) 7.1 % (0.0-3.0) Basophils (%) (Auto) 0.8 % (0.0-2.0) Sodium Level 142 MMOL/L (136-145) Potassium Level 3.6 MMOL/L (3.5-5.1) Chloride Level 107 MMOL/L (98-107) Carbon Dioxide Level 31 MMOL/L (21-32) Anion Gap 4 mmol/L (5-15) Blood Urea Nitrogen 7 mg/dL (7-18) Creatinine 0.7 MG/DL (0.55-1.30) Estimat Glomerular Filtration Rate mL/min (>60) Glucose Level 158 MG/DL (74-106) Calcium Level 8.8 MG/DL (8.5-10.1) Magnesium Level 1.7 MG/DL (1.8-2.4) Total Bilirubin 0.3 MG/DL (0.2-1.0) Aspartate Amino Transf (AST/SGOT) 22 U/L (15-37) Alanine Aminotransferase (ALT/SGPT) 12 U/L (12-78) Alkaline Phosphatase 82 U/L (46-116) Total Protein 7.1 G/DL (6.4-8.2) Albumin 2.6 G/DL (3.4-5.0) Globulin 4.5 g/dL Albumin/Globulin Ratio 0.6 (1.0-2.7) Phenytoin (Dilantin) Level 18.8 ug/mL (10-20) Objective: GENERAL: A well-developed female, NAD and ETT out HEENT: Negative. NECK: Supple. The patient is on NC. No jugular venous distention. LUNGS: Moderate air entry. no wheezes. no rhonchi CARDIAC: Normal S1, S2. RRR Soft systolic murmur heard at the parasternal border. No rubs or gallops. ABDOMEN: Soft, nontender, and nondistended. no distention; feeding tube in place; no HSM EXTREMITIES: No cyanosis, clubbing, or edema. NEUROLOGICAL: Withdrawn, but sedated at present. SKIN: Noted and reviewed. reviewed and edited BRANDY COLLIER Feb 12, 2018 16:50
--- NOTE | 2018-02-12 19:45 | Progress Note ---
DATE: 02/12/2018 SUBJECTIVE: The patient has been extubated. No respiratory distress presently noted. The patient is started on tube feeds again at low rate. Monitored rhythm, atrial fibrillation. OBJECTIVE: VITAL SIGNS: Blood pressure 135/57, pulse 92, respirations 18, and afebrile. LUNGS: Bilateral breath sounds. Scattered rhonchi. HEART: Irregularly irregular rhythm. Normal S1, S2. ABDOMEN: Soft. G-tube intact. EXTREMITIES: Trace edema. LABORATORY DATA: ABG, pH 7.46, pCO2 37, and pO2 113. Sodium 142 and potassium 3.6. Bicarb 31, BUN 7, and creatinine 0.7. Albumin 2.6. Magnesium 1.7. IMPRESSION: 1. Status post respiratory failure, now extubated. 2. Healthcare-acquired pneumonia. 3. Dysphagia with gastrostomy tube. 4. Acute on chronic diastolic congestive heart failure. 5. Paroxysmal atrial fibrillation. 6. Conduction system disease of the heart. 7. Cedxjtjd-ke-cufido protein-calorie malnutrition. 8. Hypomagnesemia. 9. Seizure disorder. PLAN: 1. Antimicrobials. 2. Respiratory hygiene. 3. Diuresis. 4. Protein supplement by feeding tube. 5. DVT and stress ulcer prophylaxis. 6. Magnesium replacement. 7. Continue antiseizure therapy with Dilantin. Brayan Card M.D. DR: CAMILA JOB#: [id number] CC:
[2018-02-12] MEDS: Dyna-Hex 2% Top Sol 2oz TOPIC SCH (19:51)
[2018-02-13] VITALS (17 sets, daily range): BP systolic 115–151; BP diastolic 40–62
[2018-02-13 06:08] LABS: BASOPHILS % (AUTO) 1.6 % (0.0-2.0); EOSINOPHILS % (AUTO) 7.6 % (0.0-3.0); HEMATOCRIT 34.8 % (37.0-47.0); HEMOGLOBIN 11.6 G/DL (12.0-16.0); LYMPHOCYTES % (AUTO) 24.9 % (20.0-45.0); MEAN CORPUSCULAR VOLUME 102 FL (80-99); MONOCYTES % (AUTO) 7.5 % (1.0-10.0); NEUTROPHILS % (AUTO) 58.4 % (45.0-75.0); PLATELET COUNT 221 K/UL (150-450); RED BLOOD COUNT 3.41 M/UL (4.20-5.40); RED CELL DISTRIBUTION WIDTH 11.9 % (11.6-14.8); WHITE BLOOD COUNT 6.3 K/UL (4.8-10.8)
[2018-02-13 06:26] LABS: ALANINE AMINOTRANSFERASE 13 U/L (12-78); ALBUMIN 2.6 G/DL (3.4-5.0); ALBUMIN/GLOBULIN RATIO 0.6 (1.0-2.7); ALKALINE PHOSPHATASE 83 U/L (46-116); ANION GAP 4 mmol/L (5-15); ASPARTATE AMINO TRANSFERASE 27 U/L (15-37); BILIRUBIN,TOTAL 0.2 MG/DL (0.2-1.0); BLOOD UREA NITROGEN 11 mg/dL (7-18); CARBON DIOXIDE 31 MMOL/L (21-32); CHLORIDE 108 MMOL/L (98-107); CREATININE 0.6 MG/DL (0.55-1.30); POTASSIUM 3.6 MMOL/L (3.5-5.1); SODIUM 143 MMOL/L (136-145)
--- NOTE | 2018-02-13 07:37 | General Progress Note ---
Assessment/Plan Problem List: (1) Respiratory distress ICD Codes: R06.03 - Acute respiratory distress SNOMED: 568883589 (2) Atrial fibrillation ICD Codes: I48.91 - Unspecified atrial fibrillation SNOMED: 01901343 Qualifiers: Qualified Codes: I48.2 - Chronic atrial fibrillation (3) Respiratory failure ICD Codes: J96.90 - Respiratory failure, unspecified, unspecified whether with hypoxia or hypercapnia SNOMED: 501377767 Qualifiers: Qualified Codes: J96.01 - Acute respiratory failure with hypoxia; J96.02 - Acute respiratory failure with hypercapnia (4) UTI (urinary tract infection) ICD Codes: N39.0 - Urinary tract infection, site not specified SNOMED: 01454545 Qualifiers: Qualified Codes: N30.00 - Acute cystitis without hematuria Status: stable, progressing Assessment/Plan iv abx per ID resp rx gt feeds resume dilantin follow up labs po lasix to bessy Subjective ROS Limited/Unobtainable: Yes Constitutional: Reports: malaise, weakness HEENT: Reports: no symptoms Cardiovascular: Reports: no symptoms Respiratory: Reports: cough Gastrointestinal/Abdominal: Reports: no symptoms, difficulty swallowing Genitourinary: Reports: no symptoms Neurologic/Psychiatric: Reports: pre-existing deficit, seizure Endocrine: Reports: no symptoms Hematologic/Lymphatic: Reports: no symptoms Allergies: Coded Allergies: PENICILLINS (Verified Allergy, Unknown, 02/04/18) SULFA (SULFONAMIDE ANTIBIOTICS) (Verified Allergy, Unknown, 02/04/18) All Systems: reviewed and negative except above Subjective stable on nasal cannula. still with some congestion. on feeds Objective Last 24 Hour Vital Signs Date Time Temp Pulse Resp B/P (MAP) Pulse Ox O2 Delivery O2 Flow Rate FiO2 02/13/18 07:00 75 23 134/52 98 Room Air 02/13/18 06:00 73 22 140/62 95 Room Air 02/13/18 05:00 70 21 115/47 98 Room Air 02/13/18 04:00 98.3 71 21 132/47 95 Room Air 98.3 02/13/18 03:20 73 02/13/18 03:00 71 21 128/62 97 Room Air 02/13/18 02:00 70 21 134/52 96 Room Air 02/13/18 01:00 67 21 119/49 97 Room Air 02/13/18 00:00 97.8 68 21 126/49 97 Room Air 97.8 02/12/18 23:13 69 02/12/18 23:00 70 21 113/45 97 Room Air 02/12/18 22:00 76 23 127/58 97 Room Air 02/12/18 21:00 72 24 134/52 97 Room Air 02/12/18 20:38 72 137/53 02/12/18 20:00 98.6 77 22 137/53 96 Room Air 98.6 02/12/18 19:21 70 02/12/18 19:20 98 Room Air 21 02/12/18 19:20 Room Air 02/12/18 19:20 69 19 Room Air 21 02/12/18 19:00 85 16 122/60 99 Room Air 02/12/18 18:00 87 18 129/61 99 Room Air 02/12/18 17:00 89 16 130/62 98 Room Air 02/12/18 16:00 82 02/12/18 16:00 98.5 86 18 118/72 99 Room Air 98.5 02/12/18 15:00 90 17 125/71 98 Room Air 02/12/18 14:00 89 18 122/65 98 Nasal Cannula 2.0 02/12/18 13:00 80 18 130/60 98 Nasal Cannula 2.0 02/12/18 12:00 98.7 73 17 106/43 97 Nasal Cannula 2.0 98.7 02/12/18 12:00 77 02/12/18 11:00 89 18 133/60 98 Nasal Cannula 2.0 02/12/18 10:00 92 18 135/57 96 Nasal Cannula 2.0 02/12/18 09:00 106 19 177/97 96 Nasal Cannula 2.0 02/12/18 09:00 70 138/48 02/12/18 08:00 94 19 125/68 100 Nasal Cannula 2.0 02/12/18 08:00 94 Intake and Output 02/12/18 02/13/18 19:00 07:00 Intake Total 620 ml 830 ml Output Total 510 ml 360 ml Balance 110 ml 470 ml Free Water 200 ml IV Total 200 ml 110 ml Tube Feeding 420 ml 420 ml Other 100 ml Output Urine Total 510 ml 360 ml # Bowel Movements 1 1 Laboratory Tests 02/12/18 07:40: White Blood Count 6.4, Red Blood Count 3.52L, Hemoglobin 12.0, Hematocrit 35.6L , Mean Corpuscular Volume 101H, Mean Corpuscular Hemoglobin 34.1H, Mean Corpuscular Hemoglobin Concent 33.6, Red Cell Distribution Width 12.2, Platelet Count 205, Mean Platelet Volume 7.3, Neutrophils (%) (Auto) 59.2, Lymphocytes (% ) (Auto) 22.8, Monocytes (%) (Auto) 10.0, Eosinophils (%) (Auto) 7.1H, Basophils (%) (Auto) 0.8, Sodium Level 142, Potassium Level 3.6, Chloride Level 107, Carbon Dioxide Level 31, Anion Gap 4L, Blood Urea Nitrogen 7, Creatinine 0.7, Estimat Glomerular Filtration Rate , Glucose Level 158H, Calcium Level 8.8 , Magnesium Level 1.7L, Total Bilirubin 0.3, Aspartate Amino Transf (AST/SGOT) 22, Alanine Aminotransferase (ALT/SGPT) 12, Alkaline Phosphatase 82, Total Protein 7.1, Albumin 2.6L, Globulin 4.5, Albumin/Globulin Ratio 0.6L, Phenytoin (Dilantin) Level 18.8 02/12/18 08:02: Arterial Blood pH 7.464H, Arterial Blood Partial Pressure CO2 36.6, Arterial Blood Partial Pressure O2 113.8H, Arterial Blood HCO3 25.7, Arterial Blood Oxygen Saturation 97.8, Arterial Blood Base Excess 2.0, Jose Luis Test Positive 02/13/18 05:20: White Blood Count 6.3, Red Blood Count 3.41L, Hemoglobin 11.6L, Hematocrit 34.8L , Mean Corpuscular Volume 102H, Mean Corpuscular Hemoglobin 34.1H, Mean Corpuscular Hemoglobin Concent 33.5, Red Cell Distribution Width 11.9, Platelet Count 221, Mean Platelet Volume 7.1, Neutrophils (%) (Auto) 58.4, Lymphocytes (% ) (Auto) 24.9, Monocytes (%) (Auto) 7.5, Eosinophils (%) (Auto) 7.6H, Basophils (%) (Auto) 1.6, Sodium Level 143, Potassium Level 3.6, Chloride Level 108H, Carbon Dioxide Level 31, Anion Gap 4L, Blood Urea Nitrogen 11, Creatinine 0.6, Estimat Glomerular Filtration Rate , Glucose Level 152H, Calcium Level 9.0, Total Bilirubin 0.2, Aspartate Amino Transf (AST/SGOT) 27, Alanine Aminotransferase (ALT/SGPT) 13, Alkaline Phosphatase 83, Total Protein 7.3, Albumin 2.6L, Globulin 4.7, Albumin/Globulin Ratio 0.6L, Phenytoin (Dilantin) Level 17.9, Pro-B-Type Natriuretic Peptide 1679H Height (Feet): 5 Height (Inches): 6.00 Weight (Pounds): 167 Objective General Appearance: WD/WN, lethargic, confused Neck: supple Cardiovascular: regular rhythm Respiratory/Chest: clear edwige Abdomen: normal bowel sounds, non tender, soft, no organomegaly Edema: no edema noted Arm (L), no edema noted Arm (R), no edema noted Leg (L), no edema noted Leg (R), no edema noted Pedal (L), no edema noted Pedal (R), no edema noted Generalized LAURA ABRAMS Feb 13, 2018 07:37
[2018-02-13] MEDS ORDERED: Phenytoin Susp 100mg/4ml NG SCH (09:00)
[2018-02-13] MEDS: levETIRAcetam 500mg/5ml Liquid NG SCH ×2 (09:12→21:00)
[2018-02-13] MEDS: Pantoprazole Inj IVP SCH ×2 (09:12→20:59)
[2018-02-13] MEDS: Furosemide 40mg tab ORAL SCH (09:12)
[2018-02-13] MEDS: Heparin 5000 units/ml inj SUBQ SCH ×2 (09:15→21:03)
[2018-02-13] MEDS: Meropenem 1 GM in NS 110 ML IVPB SCH ×2 (09:16→21:00)
--- NOTE | 2018-02-13 10:55 | Infectious Diseases Prog Note ---
"Assessment/Plan Assessment/Plan antibiotics : meropenem A 1. klebsiella UTI 2. klebsiella | pseudomonas pneumonia 3. respiratory failure 4. COPD 5. dementia P 1. continue meropenem 2. sputum culture 3. stool for c.diff 4. will follow up cultures Subjective ROS Limited/Unobtainable: Yes Allergies: Coded Allergies: PENICILLINS (Verified Allergy, Unknown, 02/04/18) SULFA (SULFONAMIDE ANTIBIOTICS) (Verified Allergy, Unknown, 02/04/18) Objective Vital Signs Last 24 Hour Vital Signs Date Time Temp Pulse Resp B/P (MAP) Pulse Ox O2 Delivery O2 Flow Rate FiO2 02/13/18 10:00 81 22 149/58 97 Room Air 02/13/18 09:13 75 134/53 02/13/18 09:00 75 21 134/53 98 Room Air 02/13/18 08:15 Room Air 02/13/18 08:15 68 18 Room Air 21 02/13/18 08:15 99 Room Air 21 02/13/18 08:00 70 02/13/18 08:00 98.7 79 20 128/61 97 Room Air 98.7 02/13/18 07:00 75 23 134/52 98 Room Air 02/13/18 06:00 73 22 140/62 95 Room Air 02/13/18 05:00 70 21 115/47 98 Room Air 02/13/18 04:00 98.3 71 21 132/47 95 Room Air 98.3 02/13/18 03:20 73 02/13/18 03:00 71 21 128/62 97 Room Air 02/13/18 02:00 70 21 134/52 96 Room Air 02/13/18 01:00 67 21 119/49 97 Room Air 02/13/18 00:00 97.8 68 21 126/49 97 Room Air 97.8 02/12/18 23:13 69 02/12/18 23:00 70 21 113/45 97 Room Air 02/12/18 22:00 76 23 127/58 97 Room Air 02/12/18 21:00 72 24 134/52 97 Room Air 02/12/18 20:38 72 137/53 02/12/18 20:00 98.6 77 22 137/53 96 Room Air 98.6 02/12/18 19:21 70 02/12/18 19:20 98 Room Air 21 02/12/18 19:20 Room Air 02/12/18 19:20 69 19 Room Air 21 02/12/18 19:00 85 16 122/60 99 Room Air 02/12/18 18:00 87 18 129/61 99 Room Air 02/12/18 17:00 89 16 130/62 98 Room Air 02/12/18 16:00 82 02/12/18 16:00 98.5 86 18 118/72 99 Room Air 98.5 02/12/18 15:00 90 17 125/71 98 Room Air 02/12/18 14:00 89 18 122/65 98 Nasal Cannula 2.0 02/12/18 13:00 80 18 130/60 98 Nasal Cannula 2.0 02/12/18 12:00 98.7 73 17 106/43 97 Nasal Cannula 2.0 98.7 02/12/18 12:00 77 02/12/18 11:00 89 18 133/60 98 Nasal Cannula 2.0 Height (Feet): 5 Height (Inches): 6.00 Weight (Pounds): 167 Respiratory/Chest: crackles/rales Cardiovascular: normal rate, regular rhythm, no gallop/murmur Abdomen: soft, non tender, other - GT Extremities: no edema, other - left subclavian Laboratory Tests Test 02/13/18 05:20 02/13/18 08:34 White Blood Count 6.3 K/UL (4.8-10.8) Red Blood Count 3.41 M/UL (4.20-5.40) L Hemoglobin 11.6 G/DL (12.0-16.0) L Hematocrit 34.8 % (37.0-47.0) L Mean Corpuscular Volume 102 FL (80-99) H Mean Corpuscular Hemoglobin 34.1 PG (27.0-31.0) H Mean Corpuscular Hemoglobin Concent 33.5 G/DL (32.0-36.0) Red Cell Distribution Width 11.9 % (11.6-14.8) Platelet Count 221 K/UL (150-450) Mean Platelet Volume 7.1 FL (6.5-10.1) Neutrophils (%) (Auto) 58.4 % (45.0-75.0) Lymphocytes (%) (Auto) 24.9 % (20.0-45.0) Monocytes (%) (Auto) 7.5 % (1.0-10.0) Eosinophils (%) (Auto) 7.6 % (0.0-3.0) H Basophils (%) (Auto) 1.6 % (0.0-2.0) Sodium Level 143 MMOL/L (136-145) Potassium Level 3.6 MMOL/L (3.5-5.1) Chloride Level 108 MMOL/L (98-107) H Carbon Dioxide Level 31 MMOL/L (21-32) Anion Gap 4 mmol/L (5-15) L Blood Urea Nitrogen 11 mg/dL (7-18) Creatinine 0.6 MG/DL (0.55-1.30) Estimat Glomerular Filtration Rate mL/min (>60) Glucose Level 152 MG/DL (74-106) H Calcium Level 9.0 MG/DL (8.5-10.1) Total Bilirubin 0.2 MG/DL (0.2-1.0) Aspartate Amino Transf (AST/SGOT) 27 U/L (15-37) Alanine Aminotransferase (ALT/SGPT) 13 U/L (12-78) Alkaline Phosphatase 83 U/L (46-116) Pro-B-Type Natriuretic Peptide 1679 pg/mL (0-125) H Total Protein 7.3 G/DL (6.4-8.2) Albumin 2.6 G/DL (3.4-5.0) L Globulin 4.7 g/dL Albumin/Globulin Ratio 0.6 (1.0-2.7) L Phenytoin (Dilantin) Level 17.9 ug/mL (10-20) Arterial Blood pH 7.440 (7.350-7.450) Arterial Blood Partial Pressure CO2 44.5 mmHg (35.0-45.0) Arterial Blood Partial Pressure O2 69.1 mmHg (75.0-100.0) L Arterial Blood HCO3 29.5 mmol/L (22.0-26.0) H Arterial Blood Oxygen Saturation 92.9 % (92.0-98.0) Arterial Blood Base Excess 4.8 Jose Luis Test Positive Current Medications Medications (Trade) Dose Ordered Sig/Singh Route PRN Reason Start Time Stop Time Status Last Admin Dose Admin Acetaminophen (Tylenol) 650 mg Q4H PRN GT Mild Pain/Temp > 100.5 02/06/18 15:30 03/08/18 15:29 02/10/18 15:45 Albuterol/ Ipratropium (Albuterol/ Ipratropium) 3 ml Q4HRT PRN HHN Bronchospasm 02/11/18 14:30 02/16/18 14:29 02/12/18 03:27 Amlodipine Besylate (Norvasc) 5 mg EVERY 12 HOURS ORAL 02/11/18 09:00 03/13/18 08:59 02/13/18 09:13 Chlorhexidine Gluconate (Azra-Hex 2%) 1 applic DAILY@2000 TOPIC 02/07/18 20:00 03/09/18 19:59 02/12/18 19:51 Clonidine HCl (Catapres Tab) 0.1 mg Q4H PRN ORAL For High Blood Pressure 02/08/18 18:30 03/10/18 18:29 02/12/18 03:16 Furosemide (Lasix) 40 mg DAILY ORAL 02/12/18 09:00 03/14/18 08:59 02/13/18 09:12 Heparin Sodium (Porcine) (Heparin 5000 units/ml) 5,000 units EVERY 12 HOURS SUBQ 02/04/18 21:00 03/06/18 20:59 02/13/18 09:15 Levetiracetam (Keppra) 500 mg Q12HR NG 02/05/18 09:00 03/07/18 08:59 02/13/18 09:12 Meropenem 1 gm/ Sodium Chloride 110 ml @ 220 mls/hr Q12HR IVPB 02/10/18 21:00 02/15/18 20:59 02/13/18 09:16 Pantoprazole (Protonix) 40 mg DAILY IVP 02/05/18 12:00 03/07/18 11:59 02/13/18 09:12 Phenytoin (Dilantin) 100 mg Q12HR NG 02/13/18 09:00 03/15/18 08:59 02/13/18 09:12 RAMY BELLA Feb 13, 2018 10:55"
--- NOTE | 2018-02-13 15:11 | Critical Care Progress Note ---
Assessment/Plan Assessment/Plan IMPRESSIONS: 1. Chronic obstructive pulmonary disease with acute exacerbation 2. Acute on chronic encephalopathy. 3. Evidence of metabolic acidosis 4. Evidence of significant bronchospasm. resolved 5. lyte imbalance 6. Acute renal failure. 7. protein calorie malnutrition 8. possible aspiration 9. pneumonia 10. possible pulmonary edema with cxr and BNP PLAN care noted IV antibiotics noted antihypertensives monitor hemodynamics monitor care cultures reviewed respiratory care as outlined Ventilatory support off and monitor reviewed meds supportive care suction as needed oxygen therapy prognosis guarded aspiration precautions elevate head for change feeds as tolerated monitor positive fluid balance medications/laboratory data/nursing notes/ICU care reviewed in detail note reviewed and edited care discussed with RN and RT ICU time spent 38 minutes Critical Care - Subjective Interval Events: extubated stable no distress still withdrawn ROS Limited/Unobtainable: Yes Condition: critical EKG Rhythm: Sinus Rhythm Residuals: minimal Tube Feeding Tolerated: yes I&O: Intake and Output 02/12/18 02/13/18 19:00 07:00 Intake Total 620 ml 830 ml Output Total 510 ml 360 ml Balance 110 ml 470 ml Free Water 200 ml IV Total 200 ml 110 ml Tube Feeding 420 ml 420 ml Other 100 ml Output Urine Total 510 ml 360 ml # Bowel Movements 1 1 Critical Care - Objective ET-Tube: 7.5 ET Position: 23 Last 24 Hour Vital Signs Date Time Temp Pulse Resp B/P (MAP) Pulse Ox O2 Delivery O2 Flow Rate FiO2 02/13/18 10:00 81 22 149/58 97 Room Air 02/13/18 09:13 75 134/53 02/13/18 09:00 75 21 134/53 98 Room Air 02/13/18 08:15 Room Air 02/13/18 08:15 68 18 Room Air 21 02/13/18 08:15 99 Room Air 21 02/13/18 08:00 70 02/13/18 08:00 98.7 79 20 128/61 97 Room Air 98.7 02/13/18 07:00 75 23 134/52 98 Room Air 02/13/18 06:00 73 22 140/62 95 Room Air 02/13/18 05:00 70 21 115/47 98 Room Air 02/13/18 04:00 98.3 71 21 132/47 95 Room Air 98.3 02/13/18 03:20 73 02/13/18 03:00 71 21 128/62 97 Room Air 02/13/18 02:00 70 21 134/52 96 Room Air 02/13/18 01:00 67 21 119/49 97 Room Air 02/13/18 00:00 97.8 68 21 126/49 97 Room Air 97.8 02/12/18 23:13 69 02/12/18 23:00 70 21 113/45 97 Room Air 02/12/18 22:00 76 23 127/58 97 Room Air 02/12/18 21:00 72 24 134/52 97 Room Air 02/12/18 20:38 72 137/53 02/12/18 20:00 98.6 77 22 137/53 96 Room Air 98.6 02/12/18 19:21 70 02/12/18 19:20 98 Room Air 21 02/12/18 19:20 Room Air 02/12/18 19:20 69 19 Room Air 21 02/12/18 19:00 85 16 122/60 99 Room Air 02/12/18 18:00 87 18 129/61 99 Room Air 02/12/18 17:00 89 16 130/62 98 Room Air 02/12/18 16:00 82 02/12/18 16:00 98.5 86 18 118/72 99 Room Air 98.5 Labs: Laboratory Tests Test 02/13/18 05:20 02/13/18 08:34 White Blood Count 6.3 K/UL (4.8-10.8) Red Blood Count 3.41 M/UL (4.20-5.40) L Hemoglobin 11.6 G/DL (12.0-16.0) L Hematocrit 34.8 % (37.0-47.0) L Mean Corpuscular Volume 102 FL (80-99) H Mean Corpuscular Hemoglobin 34.1 PG (27.0-31.0) H Mean Corpuscular Hemoglobin Concent 33.5 G/DL (32.0-36.0) Red Cell Distribution Width 11.9 % (11.6-14.8) Platelet Count 221 K/UL (150-450) Mean Platelet Volume 7.1 FL (6.5-10.1) Neutrophils (%) (Auto) 58.4 % (45.0-75.0) Lymphocytes (%) (Auto) 24.9 % (20.0-45.0) Monocytes (%) (Auto) 7.5 % (1.0-10.0) Eosinophils (%) (Auto) 7.6 % (0.0-3.0) H Basophils (%) (Auto) 1.6 % (0.0-2.0) Sodium Level 143 MMOL/L (136-145) Potassium Level 3.6 MMOL/L (3.5-5.1) Chloride Level 108 MMOL/L (98-107) H Carbon Dioxide Level 31 MMOL/L (21-32) Anion Gap 4 mmol/L (5-15) L Blood Urea Nitrogen 11 mg/dL (7-18) Creatinine 0.6 MG/DL (0.55-1.30) Estimat Glomerular Filtration Rate mL/min (>60) Glucose Level 152 MG/DL (74-106) H Calcium Level 9.0 MG/DL (8.5-10.1) Total Bilirubin 0.2 MG/DL (0.2-1.0) Aspartate Amino Transf (AST/SGOT) 27 U/L (15-37) Alanine Aminotransferase (ALT/SGPT) 13 U/L (12-78) Alkaline Phosphatase 83 U/L (46-116) Pro-B-Type Natriuretic Peptide 1679 pg/mL (0-125) H Total Protein 7.3 G/DL (6.4-8.2) Albumin 2.6 G/DL (3.4-5.0) L Globulin 4.7 g/dL Albumin/Globulin Ratio 0.6 (1.0-2.7) L Phenytoin (Dilantin) Level 17.9 ug/mL (10-20) Arterial Blood pH 7.440 (7.350-7.450) Arterial Blood Partial Pressure CO2 44.5 mmHg (35.0-45.0) Arterial Blood Partial Pressure O2 69.1 mmHg (75.0-100.0) L Arterial Blood HCO3 29.5 mmol/L (22.0-26.0) H Arterial Blood Oxygen Saturation 92.9 % (92.0-98.0) Arterial Blood Base Excess 4.8 Jose Ulis Test Positive Objective: GENERAL: A well-developed female, NAD and ETT remains out HEENT: Negative. NECK: Supple. The patient is on NC. No jugular venous distention. LUNGS: Moderate air entry. no wheezes. some rhonchi CARDIAC: Normal S1, S2. RRR Soft systolic murmur heard at the parasternal border. No rubs or gallops. ABDOMEN: Soft, nontender, and nondistended. no distention; feeding tube in place; no HSM EXTREMITIES: No cyanosis, clubbing, or edema. NEUROLOGICAL: Withdrawn, but sedated at present. SKIN: Noted and reviewed. reviewed and edited BRANDY COLLIER Feb 13, 2018 15:10
[2018-02-13] MEDS ORDERED: Acetaminophen 650mg/20.3ml GT PRN (17:30)
[2018-02-13] MEDS ORDERED: Albuterol/Ipratropium 3ml neb HHN PRN (18:00)
[2018-02-13] MEDS: Dyna-Hex 2% Top Sol 2oz TOPIC SCH (20:59)
[2018-02-13] MEDS: Phenytoin Susp 100mg/4ml NG SCH (20:59)
[2018-02-13] MEDS ORDERED: Meropenem 1 GM in NS 110 ML IVPB SCH (21:00)
--- NOTE | 2018-02-13 21:29 | General Progress Note ---
Assessment/Plan Assessment/Plan Assessment - dysphagia - s/p GT replacement - anemia, improving - OBS Recommendations - Continue TF - GT care - Elevate HOB - Monitor CBC Subjective Allergies: Coded Allergies: PENICILLINS (Verified Allergy, Unknown, 02/04/18) SULFA (SULFONAMIDE ANTIBIOTICS) (Verified Allergy, Unknown, 02/04/18) Subjective non communicative transferred out of ICU today tolerating TF Objective Last 24 Hour Vital Signs Date Time Temp Pulse Resp B/P (MAP) Pulse Ox O2 Delivery O2 Flow Rate FiO2 02/13/18 21:00 69 166/70 02/13/18 16:00 99.1 80 30 145/40 98 Room Air 99.1 02/13/18 16:00 69 02/13/18 15:00 80 30 151/57 98 Room Air 02/13/18 14:00 80 20 150/58 93 Room Air 02/13/18 13:00 76 20 140/52 98 Room Air 02/13/18 12:00 76 20 134/62 98 Room Air 02/13/18 12:00 76 02/13/18 11:00 84 22 133/58 97 Room Air 02/13/18 10:00 81 22 149/58 97 Room Air 02/13/18 09:13 75 134/53 02/13/18 09:00 75 21 134/53 98 Room Air 02/13/18 08:15 Room Air 02/13/18 08:15 68 18 Room Air 21 02/13/18 08:15 99 Room Air 21 02/13/18 08:00 70 02/13/18 08:00 98.7 79 20 128/61 97 Room Air 98.7 02/13/18 07:00 75 23 134/52 98 Room Air 02/13/18 06:00 73 22 140/62 95 Room Air 02/13/18 05:00 70 21 115/47 98 Room Air 02/13/18 04:00 98.3 71 21 132/47 95 Room Air 98.3 02/13/18 03:20 73 02/13/18 03:00 71 21 128/62 97 Room Air 02/13/18 02:00 70 21 134/52 96 Room Air 02/13/18 01:00 67 21 119/49 97 Room Air 02/13/18 00:00 97.8 68 21 126/49 97 Room Air 97.8 02/12/18 23:13 69 02/12/18 23:00 70 21 113/45 97 Room Air 02/12/18 22:00 76 23 127/58 97 Room Air Intake and Output 02/12/18 02/13/18 19:00 07:00 Intake Total 620 ml 830 ml Output Total 510 ml 360 ml Balance 110 ml 470 ml Free Water 200 ml IV Total 200 ml 110 ml Tube Feeding 420 ml 420 ml Other 100 ml Output Urine Total 510 ml 360 ml # Bowel Movements 1 1 Laboratory Tests 02/13/18 05:20: White Blood Count 6.3, Red Blood Count 3.41L, Hemoglobin 11.6L, Hematocrit 34.8L , Mean Corpuscular Volume 102H, Mean Corpuscular Hemoglobin 34.1H, Mean Corpuscular Hemoglobin Concent 33.5, Red Cell Distribution Width 11.9, Platelet Count 221, Mean Platelet Volume 7.1, Neutrophils (%) (Auto) 58.4, Lymphocytes (% ) (Auto) 24.9, Monocytes (%) (Auto) 7.5, Eosinophils (%) (Auto) 7.6H, Basophils (%) (Auto) 1.6, Sodium Level 143, Potassium Level 3.6, Chloride Level 108H, Carbon Dioxide Level 31, Anion Gap 4L, Blood Urea Nitrogen 11, Creatinine 0.6, Estimat Glomerular Filtration Rate , Glucose Level 152H, Calcium Level 9.0, Total Bilirubin 0.2, Aspartate Amino Transf (AST/SGOT) 27, Alanine Aminotransferase (ALT/SGPT) 13, Alkaline Phosphatase 83, Pro-B-Type Natriuretic Peptide 1679H, Total Protein 7.3, Albumin 2.6L, Globulin 4.7, Albumin/Globulin Ratio 0.6L, Phenytoin (Dilantin) Level 17.9 02/13/18 08:34: Arterial Blood pH 7.440, Arterial Blood Partial Pressure CO2 44.5, Arterial Blood Partial Pressure O2 69.1L, Arterial Blood HCO3 29.5H, Arterial Blood Oxygen Saturation 92.9, Arterial Blood Base Excess 4.8, Jose Luis Test Positive Height (Feet): 5 Height (Inches): 6.00 Weight (Pounds): 167 Objective Elderly AA woman NCAT supple CTA RRR soft ND NT, (+) GT no edema OBS HEIDY OCAMPO Feb 13, 2018 21:29
--- NOTE | 2018-02-14 02:00 | Progress Note ---
DATE: 02/13/2018 CARDIOLOGY PROGRESS NOTE SUBJECTIVE: The patient remains on ventilator support. No respiratory distress. Tolerating oral intake. Back on Dilantin, still requiring respiratory hygiene and respiratory therapy. Monitored rhythm, sinus. OBJECTIVE: VITAL SIGNS: Blood pressure 134/53, pulse 75, and respirations 23. LUNGS: Coarse breath sounds. Scattered rhonchi. HEART: Irregularly irregular rhythm. Normal S1, S2. ABDOMEN: Soft. EXTREMITIES: No edema. LABORATORY DATA: White count 6, hemoglobin 11.6. Sodium 143, potassium 3.6, bicarbonate 31, BUN 11, and creatinine 0.6. Pro-natriuretic peptide decreased to 1679. Albumin 2.6. ABG, 7.44, 44, and 69. IMPRESSION: 1. Status post respiratory failure. 2. Aspiration pneumonia. 3. Urinary tract infection with sepsis. 4. Recovered shock. 5. Acute on chronic diastolic congestive heart failure, now clinically compensating. 6. Moderate protein-calorie malnutrition. 7. Dementia. 8. Dysphagia with gastrostomy tube. PLAN: 1. Antimicrobials. 2. Respiratory hygiene. 3. Titrate antihypertensive regimen. 4. Nutrition by G-tube. 5. No plan for anticoagulation in view of bleeding risk and due to high risk, she will continue to require close observation at this time. Brayan Card M.D. DR: NGOC JOB#: [id number] CC:
--- NOTE | 2018-02-14 07:41 | General Progress Note ---
Assessment/Plan Problem List: (1) Respiratory distress ICD Codes: R06.03 - Acute respiratory distress SNOMED: 956065628 (2) Atrial fibrillation ICD Codes: I48.91 - Unspecified atrial fibrillation SNOMED: 97560154 Qualifiers: Qualified Codes: I48.2 - Chronic atrial fibrillation (3) Respiratory failure ICD Codes: J96.90 - Respiratory failure, unspecified, unspecified whether with hypoxia or hypercapnia SNOMED: 052208105 Qualifiers: Qualified Codes: J96.01 - Acute respiratory failure with hypoxia; J96.02 - Acute respiratory failure with hypercapnia (4) UTI (urinary tract infection) ICD Codes: N39.0 - Urinary tract infection, site not specified SNOMED: 00346286 Qualifiers: Qualified Codes: N30.00 - Acute cystitis without hematuria Status: stable, progressing Assessment/Plan iv abx per ID follow up cdiff resp rx gt feeds resume dilantin follow up labs po lasix to bessy Subjective ROS Limited/Unobtainable: No Constitutional: Reports: malaise, weakness HEENT: Reports: no symptoms Cardiovascular: Reports: no symptoms Respiratory: Reports: shortness of breath Gastrointestinal/Abdominal: Reports: difficulty swallowing Genitourinary: Reports: no symptoms Neurologic/Psychiatric: Reports: pre-existing deficit, seizure Endocrine: Reports: no symptoms Hematologic/Lymphatic: Reports: anemia Allergies: Coded Allergies: PENICILLINS (Verified Allergy, Unknown, 02/04/18) SULFA (SULFONAMIDE ANTIBIOTICS) (Verified Allergy, Unknown, 02/04/18) All Systems: reviewed and negative except above Subjective stable on nasal cannula. still with some congestion. on feeds. remains on iv abx. awake but nonverbal at baseline. Objective Last 24 Hour Vital Signs Date Time Temp Pulse Resp B/P (MAP) Pulse Ox O2 Delivery O2 Flow Rate FiO2 02/14/18 04:00 77 02/13/18 21:00 69 166/70 02/13/18 20:00 76 02/13/18 19:20 72 19 Room Air 21 02/13/18 19:11 98 Room Air 21 02/13/18 19:11 Room Air 02/13/18 16:00 99.1 80 30 145/40 98 Room Air 99.1 02/13/18 16:00 69 02/13/18 15:00 80 30 151/57 98 Room Air 02/13/18 14:00 80 20 150/58 93 Room Air 02/13/18 13:00 76 20 140/52 98 Room Air 02/13/18 12:00 76 20 134/62 98 Room Air 02/13/18 12:00 76 02/13/18 11:00 84 22 133/58 97 Room Air 02/13/18 10:00 81 22 149/58 97 Room Air 02/13/18 09:13 75 134/53 02/13/18 09:00 75 21 134/53 98 Room Air 02/13/18 08:15 Room Air 02/13/18 08:15 68 18 Room Air 21 02/13/18 08:15 99 Room Air 21 02/13/18 08:00 70 02/13/18 08:00 98.7 79 20 128/61 97 Room Air 98.7 Intake and Output 02/13/18 02/14/18 19:00 07:00 Intake Total 615 ml 585 ml Output Total 290 ml Balance 325 ml 585 ml Free Water 300 ml 200 ml IV Total 220 ml Tube Feeding 315 ml 105 ml Other 60 ml Output Urine Total 290 ml # Bowel Movements 1 Laboratory Tests 02/13/18 08:34: Arterial Blood pH 7.440, Arterial Blood Partial Pressure CO2 44.5, Arterial Blood Partial Pressure O2 69.1L, Arterial Blood HCO3 29.5H, Arterial Blood Oxygen Saturation 92.9, Arterial Blood Base Excess 4.8, Jose Luis Test Positive Height (Feet): 5 Height (Inches): 6.00 Weight (Pounds): 167 Objective General Appearance: WD/WN, lethargic, confused Neck: supple Cardiovascular: regular rhythm Respiratory/Chest: clear edwige Abdomen: normal bowel sounds, non tender, soft, no organomegaly Edema: no edema noted Arm (L), no edema noted Arm (R), no edema noted Leg (L), no edema noted Leg (R), no edema noted Pedal (L), no edema noted Pedal (R), no edema noted Generalized LAURA ABRAMS Feb 14, 2018 07:41
[2018-02-14 08:00] VITALS: BP 163/84
--- NOTE | 2018-02-14 09:02 | Critical Care Progress Note ---
Assessment/Plan Assessment/Plan IMPRESSIONS: 1. Chronic obstructive pulmonary disease with acute exacerbation 2. Acute on chronic encephalopathy. 3. Evidence of metabolic acidosis 4. Evidence of significant bronchospasm. resolved 5. lyte imbalance 6. Acute renal failure. 7. protein calorie malnutrition 8. possible aspiration 9. pneumonia 10. possible pulmonary edema with cxr and BNP PLAN IV antibiotics noted antihypertensives monitor hemodynamics monitor care cultures reviewed respiratory care as outlined Ventilatory support off and monitor reviewed meds supportive care suction as needed oxygen therapy prognosis guarded aspiration precautions elevate head for change feeds as tolerated monitor positive fluid balance medications/laboratory data/nursing notes reviewed in detail note reviewed and edited care discussed with RN and RT Critical Care - Subjective Interval Events: t/f tele ROS Limited/Unobtainable: Yes EKG Rhythm: Sinus Rhythm I&O: Intake and Output 02/13/18 02/14/18 19:00 07:00 Intake Total 615 ml 585 ml Output Total 290 ml Balance 325 ml 585 ml Free Water 300 ml 200 ml IV Total 220 ml Tube Feeding 315 ml 105 ml Other 60 ml Output Urine Total 290 ml # Bowel Movements 1 Critical Care - Objective ET-Tube: 7.5 ET Position: 23 Last 24 Hour Vital Signs Date Time Temp Pulse Resp B/P (MAP) Pulse Ox O2 Delivery O2 Flow Rate FiO2 02/14/18 08:15 97 Room Air 21 02/14/18 08:15 Room Air 02/14/18 08:15 78 20 Room Air 21 02/14/18 08:00 98.1 77 24 163/84 97 Room Air 98.1 02/14/18 04:00 77 02/13/18 21:00 69 166/70 02/13/18 20:00 76 02/13/18 19:20 72 19 Room Air 21 02/13/18 19:11 98 Room Air 21 02/13/18 19:11 Room Air 02/13/18 16:00 99.1 80 30 145/40 98 Room Air 99.1 02/13/18 16:00 69 02/13/18 15:00 80 30 151/57 98 Room Air 02/13/18 14:00 80 20 150/58 93 Room Air 02/13/18 13:00 76 20 140/52 98 Room Air 02/13/18 12:00 76 20 134/62 98 Room Air 02/13/18 12:00 76 02/13/18 11:00 84 22 133/58 97 Room Air 02/13/18 10:00 81 22 149/58 97 Room Air 02/13/18 09:13 75 134/53 Labs: Labs Test 02/11/18 12:05 02/12/18 07:40 02/12/18 08:02 02/13/18 05:20 Arterial Blood pH 7.529 (7.350-7.450) 7.464 (7.350-7.450) Arterial Blood Partial Pressure CO2 31.2 mmHg (35.0-45.0) 36.6 mmHg (35.0-45.0) Arterial Blood Partial Pressure O2 145.1 mmHg (75.0-100.0) 113.8 mmHg (75.0-100.0) Arterial Blood HCO3 25.4 mmol/L (22.0-26.0) 25.7 mmol/L (22.0-26.0) Arterial Blood Oxygen Saturation 98.9 % (92.0-98.0) 97.8 % (92.0-98.0) Arterial Blood Base Excess 3.1 2.0 Jose Luis Test Positive Positive White Blood Count 6.4 K/UL (4.8-10.8) 6.3 K/UL (4.8-10.8) Red Blood Count 3.52 M/UL (4.20-5.40) 3.41 M/UL (4.20-5.40) Hemoglobin 12.0 G/DL (12.0-16.0) 11.6 G/DL (12.0-16.0) Hematocrit 35.6 % (37.0-47.0) 34.8 % (37.0-47.0) Mean Corpuscular Volume 101 FL (80-99) 102 FL (80-99) Mean Corpuscular Hemoglobin 34.1 PG (27.0-31.0) 34.1 PG (27.0-31.0) Mean Corpuscular Hemoglobin Concent 33.6 G/DL (32.0-36.0) 33.5 G/DL (32.0-36.0) Red Cell Distribution Width 12.2 % (11.6-14.8) 11.9 % (11.6-14.8) Platelet Count 205 K/UL (150-450) 221 K/UL (150-450) Mean Platelet Volume 7.3 FL (6.5-10.1) 7.1 FL (6.5-10.1) Neutrophils (%) (Auto) 59.2 % (45.0-75.0) 58.4 % (45.0-75.0) Lymphocytes (%) (Auto) 22.8 % (20.0-45.0) 24.9 % (20.0-45.0) Monocytes (%) (Auto) 10.0 % (1.0-10.0) 7.5 % (1.0-10.0) Eosinophils (%) (Auto) 7.1 % (0.0-3.0) 7.6 % (0.0-3.0) Basophils (%) (Auto) 0.8 % (0.0-2.0) 1.6 % (0.0-2.0) Sodium Level 142 MMOL/L (136-145) 143 MMOL/L (136-145) Potassium Level 3.6 MMOL/L (3.5-5.1) 3.6 MMOL/L (3.5-5.1) Chloride Level 107 MMOL/L (98-107) 108 MMOL/L (98-107) Carbon Dioxide Level 31 MMOL/L (21-32) 31 MMOL/L (21-32) Anion Gap 4 mmol/L (5-15) 4 mmol/L (5-15) Blood Urea Nitrogen 7 mg/dL (7-18) 11 mg/dL (7-18) Creatinine 0.7 MG/DL (0.55-1.30) 0.6 MG/DL (0.55-1.30) Estimat Glomerular Filtration Rate mL/min (>60) mL/min (>60) Glucose Level 158 MG/DL (74-106) 152 MG/DL (74-106) Calcium Level 8.8 MG/DL (8.5-10.1) 9.0 MG/DL (8.5-10.1) Magnesium Level 1.7 MG/DL (1.8-2.4) Total Bilirubin 0.3 MG/DL (0.2-1.0) 0.2 MG/DL (0.2-1.0) Aspartate Amino Transf (AST/SGOT) 22 U/L (15-37) 27 U/L (15-37) Alanine Aminotransferase (ALT/SGPT) 12 U/L (12-78) 13 U/L (12-78) Alkaline Phosphatase 82 U/L (46-116) 83 U/L (46-116) Total Protein 7.1 G/DL (6.4-8.2) 7.3 G/DL (6.4-8.2) Albumin 2.6 G/DL (3.4-5.0) 2.6 G/DL (3.4-5.0) Globulin 4.5 g/dL 4.7 g/dL Albumin/Globulin Ratio 0.6 (1.0-2.7) 0.6 (1.0-2.7) Phenytoin (Dilantin) Level 18.8 ug/mL (10-20) 17.9 ug/mL (10-20) Pro-B-Type Natriuretic Peptide 1679 pg/mL (0-125) Test 02/13/18 08:34 Arterial Blood pH 7.440 (7.350-7.450) Arterial Blood Partial Pressure CO2 44.5 mmHg (35.0-45.0) Arterial Blood Partial Pressure O2 69.1 mmHg (75.0-100.0) Arterial Blood HCO3 29.5 mmol/L (22.0-26.0) Arterial Blood Oxygen Saturation 92.9 % (92.0-98.0) Arterial Blood Base Excess 4.8 Jose Luis Test Positive Objective: GENERAL: A well-developed female, NAD HEENT: Negative. NECK: Supple. The patient is on NC. No jugular venous distention. LUNGS: Moderate air entry. no wheezes. some rhonchi CARDIAC: Normal S1, S2. RRR Soft systolic murmur heard at the parasternal border. No rubs or gallops. ABDOMEN: Soft, nontender, and nondistended. no distention; feeding tube in place; no HSM EXTREMITIES: No cyanosis, clubbing, or edema. NEUROLOGICAL: Withdrawn, but sedated at present. SKIN: Noted and reviewed. reviewed and edited BRANDY COLLIER Feb 14, 2018 09:02
[2018-02-14] MEDS ORDERED: Tubing IV Secondary IV ONE (09:34)
[2018-02-14] MEDS: Furosemide 40mg tab ORAL SCH (09:49)
[2018-02-14] MEDS: Phenytoin Susp 100mg/4ml NG SCH ×2 (09:50→21:04)
[2018-02-14] MEDS: levETIRAcetam 500mg/5ml Liquid NG SCH ×2 (09:50→21:05)
[2018-02-14] MEDS: Pantoprazole Inj IVP SCH ×2 (09:50→21:05)
[2018-02-14] MEDS: Heparin 5000 units/ml inj SUBQ SCH ×2 (09:51→21:00)
[2018-02-14] MEDS: Meropenem 1 GM in NS 110 ML IVPB SCH ×2 (09:54→21:05)
--- NOTE | 2018-02-14 10:49 | Infectious Diseases Prog Note ---
"Assessment/Plan Assessment/Plan antibiotics : meropenem A 1. klebsiella UTI 2. klebsiella | pseudomonas pneumonia 3. respiratory failure 4. COPD 5. dementia P 1. continue meropenem 2. will follow up cultures Subjective ROS Limited/Unobtainable: Yes Allergies: Coded Allergies: PENICILLINS (Verified Allergy, Unknown, 02/04/18) SULFA (SULFONAMIDE ANTIBIOTICS) (Verified Allergy, Unknown, 02/04/18) Objective Vital Signs Last 24 Hour Vital Signs Date Time Temp Pulse Resp B/P (MAP) Pulse Ox O2 Delivery O2 Flow Rate FiO2 02/14/18 09:49 78 163/84 02/14/18 08:15 97 Room Air 21 02/14/18 08:15 Room Air 02/14/18 08:15 78 20 Room Air 21 02/14/18 08:00 98.1 77 24 163/84 97 Room Air 98.1 02/14/18 04:00 77 02/13/18 21:00 69 166/70 02/13/18 20:00 76 02/13/18 19:20 72 19 Room Air 21 02/13/18 19:11 98 Room Air 21 02/13/18 19:11 Room Air 02/13/18 16:00 99.1 80 30 145/40 98 Room Air 99.1 02/13/18 16:00 69 02/13/18 15:00 80 30 151/57 98 Room Air 02/13/18 14:00 80 20 150/58 93 Room Air 02/13/18 13:00 76 20 140/52 98 Room Air 02/13/18 12:00 76 20 134/62 98 Room Air 02/13/18 12:00 76 02/13/18 11:00 84 22 133/58 97 Room Air Height (Feet): 5 Height (Inches): 6.00 Weight (Pounds): 186 Respiratory/Chest: lungs clear Cardiovascular: normal rate, regular rhythm, no gallop/murmur Abdomen: soft, non tender, other - GT Extremities: no edema, other - left subclavian Current Medications Medications (Trade) Dose Ordered Sig/Singh Route PRN Reason Start Time Stop Time Status Last Admin Dose Admin Acetaminophen (Tylenol) 650 mg Q4H PRN GT Mild Pain/Temp > 100.5 02/13/18 17:30 03/08/18 17:29 Albuterol/ Ipratropium (Albuterol/ Ipratropium) 3 ml Q4H PRN HHN Bronchospasm 02/13/18 18:00 02/18/18 17:59 Amlodipine Besylate (Norvasc) 5 mg EVERY 12 HOURS ORAL 02/13/18 21:00 03/13/18 08:59 02/14/18 09:49 Chlorhexidine Gluconate (Azra-Hex 2%) 1 applic DAILY@2000 TOPIC 02/13/18 20:00 03/09/18 19:59 02/13/18 20:59 Clonidine HCl (Catapres Tab) 0.1 mg Q4H PRN ORAL SBP > 160mmHg 02/13/18 18:30 03/10/18 18:29 Furosemide (Lasix) 40 mg DAILY ORAL 02/14/18 09:00 03/14/18 08:59 02/14/18 09:49 Heparin Sodium (Porcine) (Heparin 5000 units/ml) 5,000 units EVERY 12 HOURS SUBQ 02/13/18 21:00 03/06/18 20:59 02/14/18 09:51 Levetiracetam (Keppra) 500 mg Q12HR NG 02/13/18 21:00 03/07/18 08:59 02/14/18 09:50 Meropenem 1 gm/ Sodium Chloride 110 ml @ 220 mls/hr Q12HR IVPB 02/13/18 21:00 02/18/18 20:59 02/14/18 09:54 Pantoprazole (Protonix) 40 mg EVERY 12 HOURS IVP 02/13/18 21:00 03/15/18 20:59 02/14/18 09:50 Phenytoin (Dilantin) 100 mg Q12HR NG 02/13/18 21:00 03/15/18 08:59 02/14/18 09:50 RAMY BELLA Feb 14, 2018 10:49"
--- NOTE | 2018-02-14 10:56 | General Progress Note ---
Assessment/Plan Assessment/Plan Assessment - dysphagia - s/p GT replacement - anemia, improving - OBS Recommendations - Continue TF - GT care - Elevate HOB - Monitor CBC Subjective Allergies: Coded Allergies: PENICILLINS (Verified Allergy, Unknown, 02/04/18) SULFA (SULFONAMIDE ANTIBIOTICS) (Verified Allergy, Unknown, 02/04/18) Subjective non communicative seen in [facility] tolerating TF Objective Last 24 Hour Vital Signs Date Time Temp Pulse Resp B/P (MAP) Pulse Ox O2 Delivery O2 Flow Rate FiO2 02/14/18 09:49 78 163/84 02/14/18 08:15 97 Room Air 21 02/14/18 08:15 Room Air 02/14/18 08:15 78 20 Room Air 21 02/14/18 08:00 98.1 77 24 163/84 97 Room Air 98.1 02/14/18 04:00 77 02/13/18 21:00 69 166/70 02/13/18 20:00 76 02/13/18 19:20 72 19 Room Air 02/13/18 19:11 98 Room Air 21 02/13/18 19:11 Room Air 02/13/18 16:00 99.1 80 30 145/40 98 Room Air 99.1 02/13/18 16:00 69 02/13/18 15:00 80 30 151/57 98 Room Air 02/13/18 14:00 80 20 150/58 93 Room Air 02/13/18 13:00 76 20 140/52 98 Room Air 02/13/18 12:00 76 20 134/62 98 Room Air 02/13/18 12:00 76 02/13/18 11:00 84 22 133/58 97 Room Air Intake and Output 02/13/18 02/14/18 19:00 07:00 Intake Total 615 ml 585 ml Output Total 290 ml Balance 325 ml 585 ml Free Water 300 ml 200 ml IV Total 220 ml Tube Feeding 315 ml 105 ml Other 60 ml Output Urine Total 290 ml # Bowel Movements 1 Height (Feet): 5 Height (Inches): 6.00 Weight (Pounds): 186 Objective Elderly AA woman NCAT supple CTA RRR soft ND NT, (+) GT no edema OBS HEIDY OCAMPO Feb 14, 2018 10:56
[2018-02-14 20:00] VITALS: BP 159/71
[2018-02-14] MEDS: Dyna-Hex 2% Top Sol 2oz TOPIC SCH (20:58)
--- NOTE | 2018-02-14 23:45 | Progress Note ---
DATE: 02/14/2018 CARDIOLOGY PROGRESS NOTE SUBJECTIVE: The patient is without any respiratory distress. She remains off ventilator support for several days now. She is tolerating nutrition and medications by feeding tube. PHYSICAL EXAMINATION: VITAL SIGNS: Blood pressure 166/70 is the blood pressure, max heart rate 69, respiratory rate 19, afebrile, and T-max 99.1 degrees. LUNGS: Few rhonchi. HEART: Irregularly irregular rhythm. Normal S1 and S2. ABDOMEN: Soft. G-tube intact. EXTREMITIES: Trace edema. LABORATORY AND DIAGNOSTIC DATA: White count 6.3 and hemoglobin 11.6. Pro-natriuretic peptide yesterday 1600. IMPRESSION: 1. Status post respiratory failure. 2. Status post shock due to UTI and sepsis. 3. Paroxysmal atrial fibrillation. 4. Llafsequ-sz-lrmrwm protein-calorie malnutrition. 5. Acute on chronic diastolic congestive heart failure. 6. Dysphagia with G-tube. 7. Peripheral vascular disease. 8. Dementia. PLAN: Plan of care to include antibiotics, respiratory hygiene, titration of diuretic dosing, optimization of antihypertensive, and DVT and stress ulcer prophylaxis. Brayan Card M.D. DR: SHERWIN JOB#: [id number] CC:
[2018-02-15] VITALS: BP 153/95
[2018-02-15 04:00] VITALS: BP 163/80
[2018-02-15 05:19] LABS: BASOPHILS % (AUTO) 1.1 % (0.0-2.0); EOSINOPHILS % (AUTO) 3.9 % (0.0-3.0); HEMOGLOBIN 13.1 G/DL (12.0-16.0); LYMPHOCYTES % (AUTO) 23.7 % (20.0-45.0); MEAN CORPUSCULAR VOLUME 103 FL (80-99); MONOCYTES % (AUTO) 7.9 % (1.0-10.0); NEUTROPHILS % (AUTO) 63.4 % (45.0-75.0); PLATELET COUNT 243 K/UL (150-450); RED BLOOD COUNT 3.68 M/UL (4.20-5.40); RED CELL DISTRIBUTION WIDTH 12.4 % (11.6-14.8); WHITE BLOOD COUNT 7.4 K/UL (4.8-10.8)
[2018-02-15 05:35] LABS: ALANINE AMINOTRANSFERASE 13 U/L (12-78); ALBUMIN 2.9 G/DL (3.4-5.0); ALBUMIN/GLOBULIN RATIO 0.6 (1.0-2.7); ALKALINE PHOSPHATASE 97 U/L (46-116); ANION GAP 8 mmol/L (5-15); ASPARTATE AMINO TRANSFERASE 24 U/L (15-37); BILIRUBIN,TOTAL 0.2 MG/DL (0.2-1.0); BLOOD UREA NITROGEN 14 mg/dL (7-18); CALCIUM 9.4 MG/DL (8.5-10.1); CARBON DIOXIDE 32 MMOL/L (21-32); CHLORIDE 108 MMOL/L (98-107); CREATININE 0.5 MG/DL (0.55-1.30); POTASSIUM 3.3 MMOL/L (3.5-5.1); SODIUM 148 MMOL/L (136-145)
[2018-02-15 08:00] VITALS: BP 161/77
--- NOTE | 2018-02-15 08:49 | General Progress Note ---
Assessment/Plan Problem List: (1) Respiratory distress ICD Codes: R06.03 - Acute respiratory distress SNOMED: 840718706 (2) Atrial fibrillation ICD Codes: I48.91 - Unspecified atrial fibrillation SNOMED: 88311902 Qualifiers: Qualified Codes: I48.2 - Chronic atrial fibrillation (3) Respiratory failure ICD Codes: J96.90 - Respiratory failure, unspecified, unspecified whether with hypoxia or hypercapnia SNOMED: 795793333 Qualifiers: Qualified Codes: J96.01 - Acute respiratory failure with hypoxia; J96.02 - Acute respiratory failure with hypercapnia (4) UTI (urinary tract infection) ICD Codes: N39.0 - Urinary tract infection, site not specified SNOMED: 40753468 Qualifiers: Qualified Codes: N30.00 - Acute cystitis without hematuria Status: stable, progressing Assessment/Plan iv abx per ID follow up cdiff resp rx gt feeds resume dilantin follow up labs po lasix follow up cxr replace k Subjective ROS Limited/Unobtainable: Yes Constitutional: Reports: malaise, weakness HEENT: Reports: no symptoms Cardiovascular: Reports: no symptoms Respiratory: Reports: no symptoms Gastrointestinal/Abdominal: Reports: difficulty swallowing Genitourinary: Reports: no symptoms Neurologic/Psychiatric: Reports: pre-existing deficit, seizure Endocrine: Reports: no symptoms Hematologic/Lymphatic: Reports: no symptoms Allergies: Coded Allergies: PENICILLINS (Verified Allergy, Unknown, 02/04/18) SULFA (SULFONAMIDE ANTIBIOTICS) (Verified Allergy, Unknown, 02/04/18) All Systems: reviewed and negative except above Subjective stable on nasal cannula. still with some congestion. on feeds. remains on iv abx. awake but nonverbal at baseline. bnp trending up. cxr pending Objective Last 24 Hour Vital Signs Date Time Temp Pulse Resp B/P (MAP) Pulse Ox O2 Delivery O2 Flow Rate FiO2 02/15/18 08:24 96 Room Air 21 02/15/18 08:24 Room Air 02/15/18 08:24 71 18 Room Air 21 02/15/18 08:00 97.7 79 20 161/77 97 97.7 02/15/18 04:00 97.9 73 19 163/80 97 Room Air 97.9 02/15/18 04:00 71 02/15/18 00:00 79 02/15/18 00:00 97.5 83 18 153/95 96 Room Air 97.5 02/14/18 21:05 77 159/71 02/14/18 20:00 74 02/14/18 20:00 98.0 77 17 159/71 97 Room Air 98.0 02/14/18 19:10 68 18 Room Air 21 02/14/18 19:10 97 Room Air 21 02/14/18 19:10 Room Air 02/14/18 15:38 78 02/14/18 12:00 75 02/14/18 09:49 78 163/84 Intake and Output 02/14/18 02/15/18 19:00 07:00 Intake Total 515 ml 556 ml Output Total 450 ml 500 ml Balance 65 ml 56 ml Free Water 70 ml 200 ml IV Total 110 ml 110 ml Tube Feeding 315 ml 246 ml Other 20 ml Output Urine Total 450 ml 500 ml # Bowel Movements 1 1 Laboratory Tests 02/15/18 04:00: White Blood Count 7.4, Red Blood Count 3.68L, Hemoglobin 13.1, Hematocrit 38.0, Mean Corpuscular Volume 103H, Mean Corpuscular Hemoglobin 35.5H, Mean Corpuscular Hemoglobin Concent 34.3, Red Cell Distribution Width 12.4, Platelet Count 243, Mean Platelet Volume 6.4L, Neutrophils (%) (Auto) 63.4, Lymphocytes ( %) (Auto) 23.7, Monocytes (%) (Auto) 7.9, Eosinophils (%) (Auto) 3.9H, Basophils (%) (Auto) 1.1, Sodium Level 148H, Potassium Level 3.3L, Chloride Level 108H, Carbon Dioxide Level 32, Anion Gap 8, Blood Urea Nitrogen 14, Creatinine 0.5L, Estimat Glomerular Filtration Rate , Glucose Level 150H, Calcium Level 9.4, Magnesium Level 2.3, Total Bilirubin 0.2, Aspartate Amino Transf (AST/SGOT) 24, Alanine Aminotransferase (ALT/SGPT) 13, Alkaline Phosphatase 97, Pro-B-Type Natriuretic Peptide 2960H, Total Protein 8.1, Albumin 2.9L, Globulin 5.2, Albumin/Globulin Ratio 0.6L, Phenytoin (Dilantin) Level 20.8H Height (Feet): 5 Height (Inches): 6.00 Weight (Pounds): 180 Objective General Appearance: WD/WN, lethargic, confused Neck: supple Cardiovascular: regular rhythm Respiratory/Chest: clear edwige Abdomen: normal bowel sounds, non tender, soft, no organomegaly Edema: no edema noted Arm (L), no edema noted Arm (R), no edema noted Leg (L), no edema noted Leg (R), no edema noted Pedal (L), no edema noted Pedal (R), no edema noted Generalized LAURA ABRAMS Feb 15, 2018 08:49
[2018-02-15] MEDS: Meropenem 1 GM in NS 110 ML IVPB SCH ×2 (09:13→20:30)
[2018-02-15] MEDS: Pantoprazole Inj IVP SCH ×2 (09:13→20:32)
[2018-02-15] MEDS: levETIRAcetam 500mg/5ml Liquid NG SCH ×2 (09:13→20:30)
[2018-02-15] MEDS: Phenytoin Susp 100mg/4ml NG SCH ×2 (09:13→20:30)
[2018-02-15] MEDS: Furosemide 40mg tab ORAL SCH (09:14)
[2018-02-15] MEDS: Heparin 5000 units/ml inj SUBQ SCH ×2 (09:21→20:34)
--- NOTE | 2018-02-15 09:49 | Diagnostic Imaging Report ---
Indication: Abnormal chest sounds Technique: XRAY Chest 1v Comparison: 02/09/2018 Findings: Left subclavian central line is unchanged. Endotracheal tube is been removed. Cardiac silhouette remains prominent. Linear and hazy opacities are seen in the left base. Osseous structures are stable. Impression: Interval extubation. Linear and hazy opacities of the left base could represent atelectasis and/or small pleural effusion. Clinical correlation/follow-up recommended.
--- NOTE | 2018-02-15 10:33 | Infectious Diseases Prog Note ---
Assessment/Plan Assessment/Plan A Aspiration pneumonia with Pseudomonas & Klebsiella UTI with Klebsiella ESBL Respiratory failure COPD Dementia P: Continue Meropenem Will f/u cultures Subjective ROS Limited/Unobtainable: Yes Respiratory: Reports: productive cough Allergies: Coded Allergies: PENICILLINS (Verified Allergy, Unknown, 02/04/18) SULFA (SULFONAMIDE ANTIBIOTICS) (Verified Allergy, Unknown, 02/04/18) Objective Vital Signs Last 24 Hour Vital Signs Date Time Temp Pulse Resp B/P (MAP) Pulse Ox O2 Delivery O2 Flow Rate FiO2 02/15/18 09:13 71 161/77 02/15/18 08:24 96 Room Air 21 02/15/18 08:24 Room Air 02/15/18 08:24 71 18 Room Air 21 02/15/18 08:00 97.7 79 20 161/77 97 97.7 02/15/18 04:00 97.9 73 19 163/80 97 Room Air 97.9 02/15/18 04:00 71 02/15/18 00:00 79 02/15/18 00:00 97.5 83 18 153/95 96 Room Air 97.5 02/14/18 21:05 77 159/71 02/14/18 20:00 74 02/14/18 20:00 98.0 77 17 159/71 97 Room Air 98.0 02/14/18 19:10 68 18 Room Air 21 02/14/18 19:10 97 Room Air 21 02/14/18 19:10 Room Air 02/14/18 15:38 78 02/14/18 12:00 75 Height (Feet): 5 Height (Inches): 6.00 Weight (Pounds): 180 HEENT: other - nasal airway Respiratory/Chest: rhonchi - bilaterally Cardiovascular: normal rate, other - left subclavian central line Abdomen: soft, non tender, other - GT feeding Extremities: no edema, other - left arm brace Neurologic/Psychiatric: aphasia, other - opens eyes Microbiology Date/Time Source Procedure Growth Status 02/14/18 06:00 Stool Clostridium difficile Toxin Assay - Final Complete Laboratory Tests Test 02/15/18 04:00 White Blood Count 7.4 K/UL (4.8-10.8) Red Blood Count 3.68 M/UL (4.20-5.40) L Hemoglobin 13.1 G/DL (12.0-16.0) Hematocrit 38.0 % (37.0-47.0) Mean Corpuscular Volume 103 FL (80-99) H Mean Corpuscular Hemoglobin 35.5 PG (27.0-31.0) H Mean Corpuscular Hemoglobin Concent 34.3 G/DL (32.0-36.0) Red Cell Distribution Width 12.4 % (11.6-14.8) Platelet Count 243 K/UL (150-450) Mean Platelet Volume 6.4 FL (6.5-10.1) L Neutrophils (%) (Auto) 63.4 % (45.0-75.0) Lymphocytes (%) (Auto) 23.7 % (20.0-45.0) Monocytes (%) (Auto) 7.9 % (1.0-10.0) Eosinophils (%) (Auto) 3.9 % (0.0-3.0) H Basophils (%) (Auto) 1.1 % (0.0-2.0) Sodium Level 148 MMOL/L (136-145) H Potassium Level 3.3 MMOL/L (3.5-5.1) L Chloride Level 108 MMOL/L (98-107) H Carbon Dioxide Level 32 MMOL/L (21-32) Anion Gap 8 mmol/L (5-15) Blood Urea Nitrogen 14 mg/dL (7-18) Creatinine 0.5 MG/DL (0.55-1.30) L Estimat Glomerular Filtration Rate mL/min (>60) Glucose Level 150 MG/DL (74-106) H Calcium Level 9.4 MG/DL (8.5-10.1) Magnesium Level 2.3 MG/DL (1.8-2.4) Total Bilirubin 0.2 MG/DL (0.2-1.0) Aspartate Amino Transf (AST/SGOT) 24 U/L (15-37) Alanine Aminotransferase (ALT/SGPT) 13 U/L (12-78) Alkaline Phosphatase 97 U/L (46-116) Pro-B-Type Natriuretic Peptide 2960 pg/mL (0-125) H Total Protein 8.1 G/DL (6.4-8.2) Albumin 2.9 G/DL (3.4-5.0) L Globulin 5.2 g/dL Albumin/Globulin Ratio 0.6 (1.0-2.7) L Phenytoin (Dilantin) Level 20.8 ug/mL (10-20) H Current Medications Medications (Trade) Dose Ordered Sig/Singh Route PRN Reason Start Time Stop Time Status Last Admin Dose Admin Acetaminophen (Tylenol) 650 mg Q4H PRN GT Mild Pain/Temp > 100.5 02/13/18 17:30 03/08/18 17:29 Albuterol/ Ipratropium (Albuterol/ Ipratropium) 3 ml Q4H PRN HHN Bronchospasm 02/13/18 18:00 02/18/18 17:59 Amlodipine Besylate (Norvasc) 5 mg EVERY 12 HOURS ORAL 02/13/18 21:00 03/13/18 08:59 02/15/18 09:13 Chlorhexidine Gluconate (Azra-Hex 2%) 1 applic DAILY@2000 TOPIC 02/13/18 20:00 03/09/18 19:59 02/14/18 20:58 Clonidine HCl (Catapres Tab) 0.1 mg Q4H PRN ORAL SBP > 160mmHg 02/13/18 18:30 03/10/18 18:29 Furosemide (Lasix) 40 mg DAILY ORAL 02/14/18 09:00 03/14/18 08:59 02/15/18 09:14 Heparin Sodium (Porcine) (Heparin 5000 units/ml) 5,000 units EVERY 12 HOURS SUBQ 02/13/18 21:00 03/06/18 20:59 02/15/18 09:21 Levetiracetam (Keppra) 500 mg Q12HR NG 02/13/18 21:00 03/07/18 08:59 02/15/18 09:13 Meropenem 1 gm/ Sodium Chloride 110 ml @ 220 mls/hr Q12HR IVPB 02/13/18 21:00 02/18/18 20:59 02/15/18 09:13 Pantoprazole (Protonix) 40 mg EVERY 12 HOURS IVP 02/13/18 21:00 03/15/18 20:59 02/15/18 09:13 Phenytoin (Dilantin) 100 mg Q12HR NG 02/13/18 21:00 03/15/18 08:59 02/15/18 09:13 DEE CORLEY Feb 15, 2018 10:33
--- NOTE | 2018-02-15 11:52 | Critical Care Progress Note ---
Assessment/Plan Assessment/Plan IMPRESSIONS: 1. Chronic obstructive pulmonary disease with acute exacerbation 2. Acute on chronic encephalopathy. 3. Evidence of metabolic acidosis 4. Evidence of significant bronchospasm. resolved 5. lyte imbalance 6. Acute renal failure. 7. protein calorie malnutrition 8. possible aspiration 9. pneumonia 10. possible pulmonary edema with cxr and BNP PLAN IV antibiotics noted antihypertensives monitor hemodynamics monitor care cultures reviewed respiratory care as outlined optimize and encourage clearance of secretions supportive care suction as needed oxygen therapy prognosis guarded aspiration precautions elevate head for change feeds as tolerated monitor positive fluid balance medications/laboratory data/nursing notes reviewed in detail note reviewed and edited care discussed with RN and RT Critical Care - Subjective Interval Events: Patient overall improved. On low-flow oxygen X-ray appears to be clearing No significant congestion Condition: improving EKG Rhythm: Sinus Rhythm I&O: Intake and Output 02/14/18 02/15/18 19:00 07:00 Intake Total 515 ml 556 ml Output Total 450 ml 500 ml Balance 65 ml 56 ml Free Water 70 ml 200 ml IV Total 110 ml 110 ml Tube Feeding 315 ml 246 ml Other 20 ml Output Urine Total 450 ml 500 ml # Bowel Movements 1 1 Critical Care - Objective CXR: improved ET-Tube: 7.5 ET Position: 23 Last 24 Hour Vital Signs Date Time Temp Pulse Resp B/P (MAP) Pulse Ox O2 Delivery O2 Flow Rate FiO2 02/15/18 09:13 71 161/77 02/15/18 08:24 96 Room Air 21 02/15/18 08:24 Room Air 02/15/18 08:24 71 18 Room Air 21 02/15/18 08:00 97.7 79 20 161/77 97 97.7 02/15/18 04:00 97.9 73 19 163/80 97 Room Air 97.9 02/15/18 04:00 71 02/15/18 00:00 79 02/15/18 00:00 97.5 83 18 153/95 96 Room Air 97.5 02/14/18 21:05 77 159/71 02/14/18 20:00 74 02/14/18 20:00 98.0 77 17 159/71 97 Room Air 98.0 02/14/18 19:10 68 18 Room Air 21 02/14/18 19:10 97 Room Air 21 02/14/18 19:10 Room Air 02/14/18 15:38 78 02/14/18 12:00 75 Objective: GENERAL: A well-developed female, NAD HEENT: Negative. NECK: Supple. The patient is on NC. No jugular venous distention. LUNGS: Moderate air entry. no wheezes. some rhonchi CARDIAC: Normal S1, S2. RRR Soft systolic murmur heard at the parasternal border. No rubs or gallops. ABDOMEN: Soft, nontender, and nondistended. no distention; feeding tube in place; no HSM EXTREMITIES: No cyanosis, clubbing, or edema. NEUROLOGICAL: awake SKIN: Noted and reviewed. reviewed and edited Micro: Microbiology Date/Time Source Procedure Growth Status 02/14/18 06:00 Stool Clostridium difficile Toxin Assay - Final Complete BRANDY COLLIER Feb 15, 2018 11:52
[2018-02-15 12:00] VITALS: BP 167/107
--- NOTE | 2018-02-15 13:26 | General Progress Note ---
Assessment/Plan Assessment/Plan Assessment - dysphagia - s/p GT replacement - anemia, improving - OBS Recommendations - Continue TF - GT care - Elevate HOB - Monitor CBC Subjective Allergies: Coded Allergies: PENICILLINS (Verified Allergy, Unknown, 02/04/18) SULFA (SULFONAMIDE ANTIBIOTICS) (Verified Allergy, Unknown, 02/04/18) Subjective non communicative seen in [facility] tolerating TF d/w RN Objective Last 24 Hour Vital Signs Date Time Temp Pulse Resp B/P (MAP) Pulse Ox O2 Delivery O2 Flow Rate FiO2 02/15/18 12:00 79 02/15/18 12:00 97.2 89 20 167/107 97 97.2 02/15/18 09:13 71 161/77 02/15/18 08:24 96 Room Air 21 02/15/18 08:24 Room Air 02/15/18 08:24 71 18 Room Air 21 02/15/18 08:00 97.7 79 20 161/77 97 97.7 02/15/18 07:52 76 02/15/18 04:00 97.9 73 19 163/80 97 Room Air 97.9 02/15/18 04:00 71 02/15/18 00:00 79 02/15/18 00:00 97.5 83 18 153/95 96 Room Air 97.5 02/14/18 21:05 77 159/71 02/14/18 20:00 74 02/14/18 20:00 98.0 77 17 159/71 97 Room Air 98.0 02/14/18 19:10 68 18 Room Air 21 02/14/18 19:10 97 Room Air 21 02/14/18 19:10 Room Air 02/14/18 15:38 78 Intake and Output 02/14/18 02/15/18 19:00 07:00 Intake Total 515 ml 556 ml Output Total 450 ml 500 ml Balance 65 ml 56 ml Free Water 70 ml 200 ml IV Total 110 ml 110 ml Tube Feeding 315 ml 246 ml Other 20 ml Output Urine Total 450 ml 500 ml # Bowel Movements 1 1 Laboratory Tests 02/15/18 04:00: White Blood Count 7.4, Red Blood Count 3.68L, Hemoglobin 13.1, Hematocrit 38.0, Mean Corpuscular Volume 103H, Mean Corpuscular Hemoglobin 35.5H, Mean Corpuscular Hemoglobin Concent 34.3, Red Cell Distribution Width 12.4, Platelet Count 243, Mean Platelet Volume 6.4L, Neutrophils (%) (Auto) 63.4, Lymphocytes ( %) (Auto) 23.7, Monocytes (%) (Auto) 7.9, Eosinophils (%) (Auto) 3.9H, Basophils (%) (Auto) 1.1, Sodium Level 148H, Potassium Level 3.3L, Chloride Level 108H, Carbon Dioxide Level 32, Anion Gap 8, Blood Urea Nitrogen 14, Creatinine 0.5L, Estimat Glomerular Filtration Rate , Glucose Level 150H, Calcium Level 9.4, Magnesium Level 2.3, Total Bilirubin 0.2, Aspartate Amino Transf (AST/SGOT) 24, Alanine Aminotransferase (ALT/SGPT) 13, Alkaline Phosphatase 97, Pro-B-Type Natriuretic Peptide 2960H, Total Protein 8.1, Albumin 2.9L, Globulin 5.2, Albumin/Globulin Ratio 0.6L, Phenytoin (Dilantin) Level 20.8H Height (Feet): 5 Height (Inches): 6.00 Weight (Pounds): 180 Objective Elderly AA woman NCAT supple CTA RRR soft ND NT, (+) GT no edema OBS HEIDY OCAMPO Feb 15, 2018 13:26
[2018-02-15 16:00] VITALS: BP 156/84
[2018-02-15 20:00] VITALS: BP 164/90
[2018-02-15] MEDS: Dyna-Hex 2% Top Sol 2oz TOPIC SCH (20:29)
[2018-02-15] MEDS: Carvedilol 6.25mg Tab ORAL SCH (20:33)
--- NOTE | 2018-02-15 21:30 | Progress Note ---
DATE: 02/15/2018 CARDIOLOGY PROGRESS NOTE SUBJECTIVE: The patient remains on nasal cannula with mild congestion. No respiratory distress. She is nonverbal. OBJECTIVE: VITAL SIGNS: Blood pressure 161/77, pulse 79, respiratory rate 20, and afebrile. LUNGS: Coarse breath sounds. No wheezing. HEART: Irregularly irregular rhythm. Normal S1 and S2. ABDOMEN: Soft. EXTREMITIES: Trace edema. G-tube intact. LABORATORY DATA: Sputum is positive for Klebsiella and Pseudomonas. White count 7.4 and hemoglobin 13. Sodium 148, potassium 3.3, bicarbonate 32, BUN 14, creatinine 0.5, and magnesium 2.3. Pro-natriuretic peptide 2960 and albumin 2.9. Chest x-ray reveals left basilar opacities and possibly atelectasis and small effusion. IMPRESSION: 1. Status post respiratory failure. 2. Status post sepsis with shock. 3. Polymicrobial nosocomial pneumonia. 4. Acute myocardial ischemia. 5. Acute on chronic diastolic congestive heart failure. 6. Paroxysmal atrial fibrillation. PLAN: 1. Respiratory hygiene. 2. Nutrition by G-tube. 3. Optimize antihypertensives. 4. Periodic diuresis. 5. DVT and stress ulcer prophylaxis. 6. Protein supplement by feeding tube. 7. Hold diuresis for now. 8. Off IV fluids. Brayan Card M.D. DR: Yolis JOB#: [id number] CC:
[2018-02-16] VITALS: BP 157/79
[2018-02-16 04:00] VITALS: BP 154/74
[2018-02-16 07:28] LABS: BASOPHILS % (AUTO) 0.8 % (0.0-2.0); HEMATOCRIT 37.7 % (37.0-47.0); HEMOGLOBIN 13.2 G/DL (12.0-16.0); LYMPHOCYTES % (AUTO) 21.5 % (20.0-45.0); MEAN CORPUSCULAR VOLUME 102 FL (80-99); MONOCYTES % (AUTO) 6.2 % (1.0-10.0); NEUTROPHILS % (AUTO) 68.6 % (45.0-75.0); PLATELET COUNT 285 K/UL (150-450); RED CELL DISTRIBUTION WIDTH 12.2 % (11.6-14.8); WHITE BLOOD COUNT 8.3 K/UL (4.8-10.8)
[2018-02-16] MEDS ORDERED: NORVASC5 MG ORAL (07:45)
[2018-02-16] MEDS ORDERED: COREG6.25 MG ORAL (07:45)
[2018-02-16] MEDS ORDERED: PHENYTOIN100 MG/4 M NG (07:45)
[2018-02-16] MEDS ORDERED: DUONEB 0.5-3(2.53 ML HHN (07:45)
[2018-02-16] MEDS ORDERED: MEROPENEM1 GM IVPB (07:45)
[2018-02-16] MEDS ORDERED: KEPPRA LIQ100 MG/1 M NG (07:45)
[2018-02-16] MEDS ORDERED: PROTONIX40 M1 IVP (07:45)
--- NOTE | 2018-02-16 07:59 | Critical Care Progress Note ---
Assessment/Plan Assessment/Plan IMPRESSIONS: 1. Chronic obstructive pulmonary disease with acute exacerbation 2. Acute on chronic encephalopathy. 3. Evidence of metabolic acidosis 4. Evidence of significant bronchospasm. resolved 5. lyte imbalance 6. Acute renal failure. 7. protein calorie malnutrition 8. possible aspiration 9. pneumonia 10. possible pulmonary edema with cxr and BNP PLAN care noted monitor hemodynamics monitor care cultures reviewed respiratory care as outlined optimize and encourage clearance of secretions supportive care suction as needed aspiration precautions elevate head for change feeds as tolerated monitor positive fluid balance medications/laboratory data/nursing notes reviewed in detail note reviewed and edited care discussed with RN and RT Critical Care - Subjective Interval Events: care noted no distress on oxygen ROS Limited/Unobtainable: Yes Condition: critical EKG Rhythm: Sinus Rhythm I&O: Intake and Output 02/15/18 02/16/18 19:00 07:00 Intake Total 450 ml 490 ml Output Total 700 ml 200 ml Balance -250 ml 290 ml Free Water 20 ml 100 ml IV Total 110 ml 110 ml Tube Feeding 300 ml 280 ml Other 20 ml Output Urine Total 700 ml 200 ml # Bowel Movements 1 Critical Care - Objective ET-Tube: 7.5 ET Position: 23 Last 24 Hour Vital Signs Date Time Temp Pulse Resp B/P (MAP) Pulse Ox O2 Delivery O2 Flow Rate FiO2 02/16/18 04:00 99.0 72 20 154/74 96 Room Air 99.0 02/16/18 03:43 75 02/16/18 00:00 98.4 71 19 157/79 96 Room Air 98.4 02/15/18 23:50 70 02/15/18 20:33 82 119/95 02/15/18 20:31 82 119/95 02/15/18 20:09 96 Room Air 21 02/15/18 20:09 Room Air 02/15/18 20:08 81 20 Room Air 21 02/15/18 20:00 81 02/15/18 20:00 98.8 82 19 164/90 95 98.8 02/15/18 16:00 79 02/15/18 16:00 97.2 79 20 156/84 97 97.2 02/15/18 12:00 79 02/15/18 12:00 97.2 89 20 167/107 97 97.2 02/15/18 09:13 71 161/77 02/15/18 08:24 96 Room Air 21 02/15/18 08:24 Room Air 02/15/18 08:24 71 18 Room Air 21 02/15/18 08:00 97.7 79 20 161/77 97 97.7 Labs: Labs Test 02/13/18 08:34 02/15/18 04:00 02/16/18 06:40 Arterial Blood pH 7.440 (7.350-7.450) Arterial Blood Partial Pressure CO2 44.5 mmHg (35.0-45.0) Arterial Blood Partial Pressure O2 69.1 mmHg (75.0-100.0) Arterial Blood HCO3 29.5 mmol/L (22.0-26.0) Arterial Blood Oxygen Saturation 92.9 % (92.0-98.0) Arterial Blood Base Excess 4.8 Jose Luis Test Positive White Blood Count 7.4 K/UL (4.8-10.8) 8.3 K/UL (4.8-10.8) Red Blood Count 3.68 M/UL (4.20-5.40) 3.70 M/UL (4.20-5.40) Hemoglobin 13.1 G/DL (12.0-16.0) 13.2 G/DL (12.0-16.0) Hematocrit 38.0 % (37.0-47.0) 37.7 % (37.0-47.0) Mean Corpuscular Volume 103 FL (80-99) 102 FL (80-99) Mean Corpuscular Hemoglobin 35.5 PG (27.0-31.0) 35.7 PG (27.0-31.0) Mean Corpuscular Hemoglobin Concent 34.3 G/DL (32.0-36.0) 35.0 G/DL (32.0-36.0) Red Cell Distribution Width 12.4 % (11.6-14.8) 12.2 % (11.6-14.8) Platelet Count 243 K/UL (150-450) 285 K/UL (150-450) Mean Platelet Volume 6.4 FL (6.5-10.1) 6.7 FL (6.5-10.1) Neutrophils (%) (Auto) 63.4 % (45.0-75.0) 68.6 % (45.0-75.0) Lymphocytes (%) (Auto) 23.7 % (20.0-45.0) 21.5 % (20.0-45.0) Monocytes (%) (Auto) 7.9 % (1.0-10.0) 6.2 % (1.0-10.0) Eosinophils (%) (Auto) 3.9 % (0.0-3.0) 3.0 % (0.0-3.0) Basophils (%) (Auto) 1.1 % (0.0-2.0) 0.8 % (0.0-2.0) Sodium Level 148 MMOL/L (136-145) Potassium Level 3.3 MMOL/L (3.5-5.1) Chloride Level 108 MMOL/L (98-107) Carbon Dioxide Level 32 MMOL/L (21-32) Anion Gap 8 mmol/L (5-15) Blood Urea Nitrogen 14 mg/dL (7-18) Creatinine 0.5 MG/DL (0.55-1.30) Estimat Glomerular Filtration Rate mL/min (>60) Glucose Level 150 MG/DL (74-106) Calcium Level 9.4 MG/DL (8.5-10.1) Magnesium Level 2.3 MG/DL (1.8-2.4) Total Bilirubin 0.2 MG/DL (0.2-1.0) Aspartate Amino Transf (AST/SGOT) 24 U/L (15-37) Alanine Aminotransferase (ALT/SGPT) 13 U/L (12-78) Alkaline Phosphatase 97 U/L (46-116) Pro-B-Type Natriuretic Peptide 2960 pg/mL (0-125) Total Protein 8.1 G/DL (6.4-8.2) Albumin 2.9 G/DL (3.4-5.0) Globulin 5.2 g/dL Albumin/Globulin Ratio 0.6 (1.0-2.7) Phenytoin (Dilantin) Level 20.8 ug/mL (10-20) Objective: GENERAL: A well-developed female, NAD HEENT: Negative. NECK: Supple. The patient is on NC. No jugular venous distention. LUNGS: Moderate air entry. no wheezes. some rhonchi CARDIAC: Normal S1, S2. RRR Soft systolic murmur heard at the parasternal border. No rubs or gallops. ABDOMEN: Soft, nontender, and nondistended. no distention; feeding tube in place; no HSM EXTREMITIES: No cyanosis, clubbing, or edema. NEUROLOGICAL: awake SKIN: Noted and reviewed. reviewed and edited Micro: Microbiology Date/Time Source Procedure Growth Status 02/13/18 16:00 Sputum Induced Gram Stain - Final Resulted 02/13/18 16:00 Sputum Culture - Preliminary Yeast Species Resulted 02/14/18 06:00 Stool Clostridium difficile Toxin Assay - Final Complete BRANDY COLLIER Feb 16, 2018 07:59
[2018-02-16 08:00] VITALS: BP 164/78
[2018-02-16] MEDS: Heparin 5000 units/ml inj SUBQ SCH (08:41)
[2018-02-16] MEDS: Carvedilol 6.25mg Tab ORAL SCH (08:42)
[2018-02-16] MEDS: levETIRAcetam 500mg/5ml Liquid NG SCH (08:42)
[2018-02-16] MEDS: Pantoprazole Inj IVP SCH (08:42)
[2018-02-16] MEDS: Meropenem 1 GM in NS 110 ML IVPB SCH (08:44)
[2018-02-16 09:47] LABS: ALANINE AMINOTRANSFERASE 14 U/L (12-78); ALBUMIN 2.7 G/DL (3.4-5.0); ALBUMIN/GLOBULIN RATIO 0.5 (1.0-2.7); ALKALINE PHOSPHATASE 98 U/L (46-116); ANION GAP 6 mmol/L (5-15); ASPARTATE AMINO TRANSFERASE 21 U/L (15-37); BILIRUBIN,TOTAL 0.3 MG/DL (0.2-1.0); BLOOD UREA NITROGEN 12 mg/dL (7-18); CALCIUM 9.4 MG/DL (8.5-10.1); CARBON DIOXIDE 33 MMOL/L (21-32); CHLORIDE 106 MMOL/L (98-107); CREATININE 0.6 MG/DL (0.55-1.30); POTASSIUM 3.4 MMOL/L (3.5-5.1); SODIUM 145 MMOL/L (136-145)
--- NOTE | 2018-02-16 10:00 | Discharge Summary ---
DATE OF ADMISSION: 02/04/2018 DATE OF DISCHARGE: 02/16/2018 ADMISSION DIAGNOSES: 1. Respiratory failure. 2. Sepsis shock. 3. Pneumonia. 4. Toxic metabolic encephalopathy. 5. Seizure disorder. 6. Congestive heart failure. 7. Acute on chronic diastolic heart failure exacerbation. DISCHARGE DIAGNOSES: 1. Respiratory failure. 2. Sepsis shock. 3. Pneumonia. 4. Toxic metabolic encephalopathy. 5. Seizure disorder. 6. Congestive heart failure. 7. Acute on chronic diastolic heart failure exacerbation. HOSPITAL COURSE: The patient is a pleasant female with complaints of shortness of breath. She was intubated in the emergency room for respiratory failure. She was diagnosed with pneumonia. She was initially admitted to intensive care unit. She was maintained on vent for about a week before she was weaned. She received broad-spectrum antibiotics. She was gently diuresed. On discharge, she was stable. She will continue IV antibiotic therapy for an additional week. DISCHARGE MEDICATIONS: Please see discharge medication list for discharge medications. DIET: G-tube feeding. ACTIVITY: Ad-maritza. FOLLOWUP: The patient will [facility]. Michael Sprague M.D. DR: Eddi JOB#: [id number] CC:
[2018-02-16] MEDS ORDERED: NS 275ml ONE ×3 (11:12→13:15)
[2018-02-16] MEDS ORDERED: Tubing IV Secondary IV ONE ×2 (11:12→13:15)
--- NOTE | 2018-02-16 11:15 | Infectious Diseases Prog Note ---
Assessment/Plan Assessment/Plan A Aspiration pneumonia with Pseudomonas & Klebsiella UTI with Klebsiella ESBL Respiratory failure COPD Dementia P: Continue Meropenem X 2 days Agree with discharge plan Subjective ROS Limited/Unobtainable: Yes Allergies: Coded Allergies: PENICILLINS (Verified Allergy, Unknown, 02/04/18) SULFA (SULFONAMIDE ANTIBIOTICS) (Verified Allergy, Unknown, 02/04/18) Objective Vital Signs Last 24 Hour Vital Signs Date Time Temp Pulse Resp B/P (MAP) Pulse Ox O2 Delivery O2 Flow Rate FiO2 02/16/18 08:42 73 164/78 02/16/18 08:42 73 164/78 02/16/18 08:00 96.6 73 18 164/78 96 Room Air 96.6 02/16/18 08:00 73 02/16/18 04:00 99.0 72 20 154/74 96 Room Air 99.0 02/16/18 03:43 75 02/16/18 00:00 98.4 71 19 157/79 96 Room Air 98.4 02/15/18 23:50 70 02/15/18 20:33 82 119/95 02/15/18 20:31 82 119/95 02/15/18 20:09 96 Room Air 21 02/15/18 20:09 Room Air 02/15/18 20:08 81 20 Room Air 21 02/15/18 20:00 81 02/15/18 20:00 98.8 82 19 164/90 95 98.8 02/15/18 16:00 79 02/15/18 16:00 97.2 79 20 156/84 97 97.2 02/15/18 12:00 79 02/15/18 12:00 97.2 89 20 167/107 97 97.2 Height (Feet): 5 Height (Inches): 6.00 Weight (Pounds): 186 General Appearance: no acute distress HEENT: other - nasal airway Respiratory/Chest: rhonchi - bilaterally Cardiovascular: normal rate, other - left subclavian line Abdomen: soft, non tender, other - GT feeding Extremities: no edema Neurologic/Psychiatric: aphasia Microbiology Date/Time Source Procedure Growth Status 02/13/18 16:00 Sputum Induced Gram Stain - Final Resulted 02/13/18 16:00 Sputum Culture - Preliminary Yeast Species Resulted 02/14/18 06:00 Stool Clostridium difficile Toxin Assay - Final Complete Laboratory Tests Test 02/16/18 06:40 White Blood Count 8.3 K/UL (4.8-10.8) Red Blood Count 3.70 M/UL (4.20-5.40) L Hemoglobin 13.2 G/DL (12.0-16.0) Hematocrit 37.7 % (37.0-47.0) Mean Corpuscular Volume 102 FL (80-99) H Mean Corpuscular Hemoglobin 35.7 PG (27.0-31.0) H Mean Corpuscular Hemoglobin Concent 35.0 G/DL (32.0-36.0) Red Cell Distribution Width 12.2 % (11.6-14.8) Platelet Count 285 K/UL (150-450) Mean Platelet Volume 6.7 FL (6.5-10.1) Neutrophils (%) (Auto) 68.6 % (45.0-75.0) Lymphocytes (%) (Auto) 21.5 % (20.0-45.0) Monocytes (%) (Auto) 6.2 % (1.0-10.0) Eosinophils (%) (Auto) 3.0 % (0.0-3.0) Basophils (%) (Auto) 0.8 % (0.0-2.0) Sodium Level 145 MMOL/L (136-145) Potassium Level 3.4 MMOL/L (3.5-5.1) L Chloride Level 106 MMOL/L (98-107) Carbon Dioxide Level 33 MMOL/L (21-32) H Anion Gap 6 mmol/L (5-15) Blood Urea Nitrogen 12 mg/dL (7-18) Creatinine 0.6 MG/DL (0.55-1.30) Estimat Glomerular Filtration Rate mL/min (>60) Glucose Level 172 MG/DL (74-106) H Calcium Level 9.4 MG/DL (8.5-10.1) Total Bilirubin 0.3 MG/DL (0.2-1.0) Aspartate Amino Transf (AST/SGOT) 21 U/L (15-37) Alanine Aminotransferase (ALT/SGPT) 14 U/L (12-78) Alkaline Phosphatase 98 U/L (46-116) Total Protein 7.8 G/DL (6.4-8.2) Albumin 2.7 G/DL (3.4-5.0) L Globulin 5.1 g/dL Albumin/Globulin Ratio 0.5 (1.0-2.7) L Current Medications Medications (Trade) Dose Ordered Sig/Singh Route PRN Reason Start Time Stop Time Status Last Admin Dose Admin Acetaminophen (Tylenol) 650 mg Q4H PRN GT Mild Pain/Temp > 100.5 02/13/18 17:30 03/08/18 17:29 Albuterol/ Ipratropium (Albuterol/ Ipratropium) 3 ml Q4H PRN HHN Bronchospasm 02/13/18 18:00 02/18/18 17:59 Amlodipine Besylate (Norvasc) 5 mg EVERY 12 HOURS ORAL 02/13/18 21:00 03/13/18 08:59 02/16/18 08:42 Carvedilol (Coreg) 6.25 mg EVERY 12 HOURS ORAL 02/15/18 21:00 03/17/18 20:59 02/16/18 08:42 Chlorhexidine Gluconate (Azra-Hex 2%) 1 applic DAILY@2000 TOPIC 02/13/18 20:00 03/09/18 19:59 02/15/18 20:29 Clonidine HCl (Catapres Tab) 0.1 mg Q4H PRN ORAL SBP > 160mmHg 02/13/18 18:30 03/10/18 18:29 Heparin Sodium (Porcine) (Heparin 5000 units/ml) 5,000 units EVERY 12 HOURS SUBQ 02/13/18 21:00 03/06/18 20:59 02/16/18 08:41 Levetiracetam (Keppra) 500 mg Q12HR NG 02/13/18 21:00 03/07/18 08:59 02/16/18 08:42 Meropenem 1 gm/ Sodium Chloride 110 ml @ 220 mls/hr Q12HR IVPB 02/13/18 21:00 02/18/18 20:59 02/16/18 08:44 Pantoprazole (Protonix) 40 mg EVERY 12 HOURS IVP 02/13/18 21:00 03/15/18 20:59 02/16/18 08:42 DEE CORLEY Feb 16, 2018 11:15
[2018-02-16 12:00] VITALS: BP 159/70
--- NOTE | 2018-02-16 12:15 | Progress Note ---
DATE: 02/16/2018 CARDIOLOGY PROGRESS NOTE SUBJECTIVE: The patient is in no distress. Still requiring some respiratory hygiene, but significantly improved. Completing IV antibiotics. OBJECTIVE: VITAL SIGNS: Blood pressure 119/95 to 164/78, heart rate 72, respiratory rate 18, and afebrile. LUNGS: Coarse breath sounds. HEART: Irregularly irregular rhythm. Normal S1, S2. ABDOMEN: Soft. G-tube intact. EXTREMITIES: Trace edema. LABORATORY DATA: Sodium 145, potassium 3.4, bicarbonate 33, BUN 12, creatinine 0.6, albumin 2.7. ASSESSMENT: 1. Status post respiratory failure. 2. Healthcare-acquired pneumonia. 3. Atrial fibrillation, rate controlled. 4. Acute on chronic diastolic congestive heart failure, clinically compensated. 5. Moderate protein-calorie malnutrition, improved. 6. Hypokalemia. 7. Hypertensive heart disease. PLAN: 1. Stable for subacute facility. 2. Additional potassium replacement. 3. Fine-tune and optimize antihypertensive regimen. Brayan Card M.D. DR: Armani JOB#: [id number] CC:
[2018-02-16] MEDS ORDERED: NS Irrig 4000ml IRRIG ONE (13:15)
[2018-02-16] MEDS ORDERED: Sterile Water Irrig 1000ml IRRIG ONE ×2 (14:23)
[2018-02-16 15:59] VITALS: BP 166/85
[2018-02-16 16:08] VITALS: BP 166/85
--- NOTE | 2018-02-16 21:14 | General Progress Note ---
Assessment/Plan Assessment/Plan Assessment - dysphagia - s/p GT replacement - anemia, improving - OBS Recommendations - Continue TF - GT care - Elevate HOB - Monitor CBC - d/c planning Subjective Allergies: Coded Allergies: PENICILLINS (Verified Allergy, Unknown, 02/04/18) SULFA (SULFONAMIDE ANTIBIOTICS) (Verified Allergy, Unknown, 02/04/18) Subjective non communicative seen in [facility] tolerating TF d/w RN for discharge today Objective Last 24 Hour Vital Signs Date Time Temp Pulse Resp B/P (MAP) Pulse Ox O2 Delivery O2 Flow Rate FiO2 02/16/18 17:22 98.1 02/16/18 16:08 166/85 02/16/18 16:00 73 02/16/18 15:59 98.1 74 18 166/85 96 Room Air 98.1 02/16/18 12:00 97.7 72 18 159/70 95 Room Air 97.7 02/16/18 12:00 72 02/16/18 10:07 Room Air 02/16/18 10:06 72 18 Room Air 21 02/16/18 10:06 98 Room Air 21 02/16/18 08:42 73 164/78 02/16/18 08:42 73 164/78 02/16/18 08:00 96.6 73 18 164/78 96 Room Air 96.6 02/16/18 08:00 73 02/16/18 04:00 99.0 72 20 154/74 96 Room Air 99.0 02/16/18 03:43 75 02/16/18 00:00 98.4 71 19 157/79 96 Room Air 98.4 02/15/18 23:50 70 Intake and Output 02/15/18 02/16/18 19:00 07:00 Intake Total 450 ml 490 ml Output Total 700 ml 200 ml Balance -250 ml 290 ml Free Water 20 ml 100 ml IV Total 110 ml 110 ml Tube Feeding 300 ml 280 ml Other 20 ml Output Urine Total 700 ml 200 ml # Bowel Movements 1 Laboratory Tests 02/16/18 06:40: White Blood Count 8.3, Red Blood Count 3.70L, Hemoglobin 13.2, Hematocrit 37.7, Mean Corpuscular Volume 102H, Mean Corpuscular Hemoglobin 35.7H, Mean Corpuscular Hemoglobin Concent 35.0, Red Cell Distribution Width 12.2, Platelet Count 285, Mean Platelet Volume 6.7, Neutrophils (%) (Auto) 68.6, Lymphocytes (% ) (Auto) 21.5, Monocytes (%) (Auto) 6.2, Eosinophils (%) (Auto) 3.0, Basophils ( %) (Auto) 0.8, Sodium Level 145, Potassium Level 3.4L, Chloride Level 106, Carbon Dioxide Level 33H, Anion Gap 6, Blood Urea Nitrogen 12, Creatinine 0.6, Estimat Glomerular Filtration Rate , Glucose Level 172H, Calcium Level 9.4, Total Bilirubin 0.3, Aspartate Amino Transf (AST/SGOT) 21, Alanine Aminotransferase (ALT/SGPT) 14, Alkaline Phosphatase 98, Total Protein 7.8, Albumin 2.7L, Globulin 5.1, Albumin/Globulin Ratio 0.5L Height (Feet): 5 Height (Inches): 6.00 Weight (Pounds): 186 Objective Elderly AA woman NCAT supple CTA RRR soft ND NT, (+) GT no edema OBS HEIDY OCAMPO Feb 16, 2018 21:14
== END 2018-02-16 17:30 | DRG 870 ==
LOC: EDBD 12:44 → EDBEDREQ 13:30 → EMR 14:26 → ICU 14:36 → 2W 02-13 16:59
PROC: 5A1955Z Respiratory Ventilation, Greater than 96 Consecutive Hours (ICD-10-PCS; principal; 2018-02-04)
PROC: 0BH17EZ Insertion of Endotracheal Airway into Trachea, Via Natural or Artificial Opening (ICD-10-PCS; principal; 2018-02-04)
DX: A41.9 Sepsis, unspecified organism (principal); I50.33 Acute on chronic diastolic (congestive) heart failure; R65.21 Severe sepsis with septic shock; J96.01 Acute respiratory failure with hypoxia; J96.02 Acute respiratory failure with hypercapnia; J69.0 Pneumonitis due to inhalation of food and vomit; J15.0 Pneumonia due to Klebsiella pneumoniae; J15.1 Pneumonia due to Pseudomonas; G92 Toxic encephalopathy; J44.1 Chronic obstructive pulmonary disease with (acute) exacerbation; N39.0 Urinary tract infection, site not specified; I13.0 Hypertensive heart and chronic kidney disease with heart failure and stage 1 through stage 4 chronic kidney disease, or unspecified chronic kidney disease; E44.0 Moderate protein-calorie malnutrition; N17.9 Acute kidney failure, unspecified; I42.9 Cardiomyopathy, unspecified; J44.0 Chronic obstructive pulmonary disease with (acute) lower respiratory infection; E87.6 Hypokalemia; I67.9 Cerebrovascular disease, unspecified; F01.50 Vascular dementia, unspecified severity, without behavioral disturbance, psychotic disturbance, mood disturbance, and anxiety; T42.0X5A Adverse effect of hydantoin derivatives, initial encounter; Y92.239 Unspecified place in hospital as the place of occurrence of the external cause; N18.9 Chronic kidney disease, unspecified; E11.22 Type 2 diabetes mellitus with diabetic chronic kidney disease; Z86.73 Personal history of transient ischemic attack (TIA), and cerebral infarction without residual deficits; R13.10 Dysphagia, unspecified; Z93.1 Gastrostomy status; G40.909 Epilepsy, unspecified, not intractable, without status epilepticus; Z68.30 Body mass index [BMI] 30.0-30.9, adult; I48.0 Paroxysmal atrial fibrillation; I25.5 Ischemic cardiomyopathy; F03.90 Unspecified dementia, unspecified severity, without behavioral disturbance, psychotic disturbance, mood disturbance, and anxiety
CPT/HCPCS: 36415; 36600; 71045; 80048; 80053; 80185; 80202; 81003; 82550; 82803; 83605; 83735; 83880; 84443; 84478; 84484; 85025; 85610; 85730; 87040; 87070; 87081; 87086; 87181; 87205; 87324; 93005; 93306; 94002; 94003; 94640; 94664; 94760; 99291; J7620; J8499

== ENCOUNTER 2018-06-24 13:39 | Inpatient (IN) | payer OTHER, MEDICAID ==
[~2018-06-24] VITALS: Ht 165.1 cm; Wt 82.6 kg
[~2018-06-24 13:39] MED LIST: ASPIRIN81 MG GT; ATORVASTATIN CA10 MG GT; CATAPRES0.1 MG ORAL; COREG6.25 MG ORAL; DUONEB 0.5-3(2.53 ML HHN; KEPPRA LIQ100 MG/1 M NG; MEROPENEM1 GM IVPB; NORVASC5 MG ORAL; PHENYTOIN100 MG/4 M NG; PROTONIX40 M1 IVP
[2018-06-24] MEDS ORDERED: Cefepime HCl 2 GM in NS 110 ML IV STA (13:42)
[2018-06-24] MEDS ORDERED: Vancomycin 1 GM in NS 275 ML IV ONE (13:45)
--- NOTE | 2018-06-24 13:48 | Emergency Room Report ---
History of Present Illness General Chief Complaint: Fever Source: Patient, Medical Record Present Illness HPI The patient is brought in by BLS from [facility]. Her O2 saturation was 80% on room air. She had a temperature of 102 at 10:30 the morning and Tylenol was given. Apparently she was started on Levaquin yesterday for a pseudomonal infection of her lungs. Patient is full code. Post CVA and STEMI. G tube. H/O seizures on Keppra. No further history is available from the patient. In January she was intubated for respiratory failure. These are her d/c diagnoses : 1. Respiratory failure. 2. Sepsis shock. 3. Pneumonia. 4. Toxic metabolic encephalopathy. 5. Seizure disorder. 6. Congestive heart failure. 7. Acute on chronic diastolic heart failure exacerbation. Allergies: Coded Allergies: PENICILLINS (Verified Allergy, Unknown, 02/04/18) SULFA (SULFONAMIDE ANTIBIOTICS) (Verified Allergy, Unknown, 02/04/18) SULFACETAMIDE (Unverified Allergy, Unknown, 06/24/18) Patient History Limited by: medical condition Past Medical History: see triage record, old chart reviewed Past Surgical History: other - G tube Social History Narrative with family here - full code - at [facility] Reviewed Nursing Documentation: PMH: Agreed; PSxH: Agreed Nursing Documentation-PMH Past Medical History: No History, Except For Hx Cardiac Problems: Yes - MYOCARDIAL INFARCTION Hx Hypertension: Yes Hx COPD: Yes Hx Diabetes: Yes Hx Cancer: No Hx Gastrointestinal Problems: Yes - G tube Hx Neurological Problems: Yes - CEREBRAL INFARCTION Hx Cerebrovascular Accident: Yes - contracture Hx Seizures: Yes Hx Dizziness: Yes Hx Syncope: Yes Hx Weakness: Yes Hx Fatigue: Yes Review of Systems All Other Systems: limited Physical Exam Vital Signs Date Time Temp Pulse Resp B/P (MAP) Pulse Ox O2 Delivery O2 Flow Rate FiO2 06/24/18 13:40 98.2 98 22 179/98 97 Nasal Cannula 1.0 98.2 Sp02 EP Interpretation: reviewed, abnormal - interpreted as low by me General Appearance: moderate distress, Chronically Ill Head: normocephalic, atraumatic Eyes: bilateral eye normal inspection, bilateral eye PERRL ENT: dry mucus membranes Neck: supple Respiratory: respiratory distress - mild, rales - R Cardiovascular #1: normal peripheral pulses, regular rate, rhythm, edema - slight Cardiovascular #2: 2+ radial (R), 2+ femoral (R) Gastrointestinal: non tender, soft, decreased bowel sounds Genitourinary: no CVA tenderness Neurologic: alert, motor weakness - R hemiparesis, sensory deficit - R, other - aphasic - moaning Psychiatric: anxious Reflexes: 1+ knee (R); 2+ knee (L) Skin: no rash Procedures Central Line Central Line : Consent: Emergent Central Line Lumen: triple Maximal Sterile Barrier Tech: yes cap, yes mask, yes sterile gown, yes sterile gloves, yes large sterile sheet, yes hand hygiene, yes chlorhexidine prep Central Line Postion: internal jugular (R), femoral (R) - unable to thread Complications: none Attempts: Other - 2 unable to thread R femoral Patient Tolerated: Well Complications: None Progress EBL = 35 ml (bloods drawn) Medical Decision Making Diagnostic Impression: Primary Impression: Pneumonia Qualified Codes: J18.9 - Pneumonia, unspecified organism Additional Impressions: Hypoxia UTI (urinary tract infection) Qualified Codes: N39.0 - Urinary tract infection, site not specified ER Course Patient presents with fever and hypoxia after 1 dose of Levaquin with a question of Pseudomonas. Differential includes sepsis, pneumonia, other source of infection. Evaluation will be with EKG, chest x-ray and labs including blood cultures. She will be with IV hydration and antibiotics. We will treat fever if she is febrile here. No IV access. CVP begun and bloods drawn. EKG without injury. CXR with infiltrate and CVP proper placement. Labs with elevated WBC, normal trop and elevated BNP. Agitation treated with small dose of morphine. Discussed with family. Some improvement in ED. Admit telemetry, Dr. Sprague. Laboratory Tests Test 06/24/18 14:45 06/24/18 15:20 White Blood Count 7.2 K/UL (4.8-10.8) Red Blood Count 3.72 M/UL (4.20-5.40) L Hemoglobin 12.6 G/DL (12.0-16.0) Hematocrit 37.2 % (37.0-47.0) Mean Corpuscular Volume 100 FL (80-99) H Mean Corpuscular Hemoglobin 33.8 PG (27.0-31.0) H Mean Corpuscular Hemoglobin Concent 33.8 G/DL (32.0-36.0) Red Cell Distribution Width 12.3 % (11.6-14.8) Platelet Count 199 K/UL (150-450) Mean Platelet Volume 8.4 FL (6.5-10.1) Neutrophils (%) (Auto) 67.2 % (45.0-75.0) Lymphocytes (%) (Auto) 23.8 % (20.0-45.0) Monocytes (%) (Auto) 6.5 % (1.0-10.0) Eosinophils (%) (Auto) 0.7 % (0.0-3.0) Basophils (%) (Auto) 1.8 % (0.0-2.0) Prothrombin Time 11.9 SEC (9.30-11.50) H Prothrombin Time INR 1.1 (0.9-1.1) PTT 24 SEC (23-33) Sodium Level 145 MMOL/L (136-145) Potassium Level 3.5 MMOL/L (3.5-5.1) Chloride Level 105 MMOL/L (98-107) Carbon Dioxide Level 37 MMOL/L (21-32) H Anion Gap 4 mmol/L (5-15) L Blood Urea Nitrogen 17 mg/dL (7-18) Creatinine 0.5 MG/DL (0.55-1.30) L Estimate Glomerular Filtration Rate mL/min (>60) Glucose Level 157 MG/DL (74-106) H Lactic Acid Level 1.00 mmol/L (0.4-2.0) Calcium Level 9.3 MG/DL (8.5-10.1) Total Bilirubin 0.4 MG/DL (0.2-1.0) Aspartate Amino Transferase (AST) 26 U/L (15-37) Alanine Aminotransferase (ALT) 23 U/L (12-78) Alkaline Phosphatase 141 U/L (46-116) H Total Creatine Kinase 67 U/L (26-308) Troponin I 0.040 ng/mL (0.000-0.056) Pro-B-Type Natriuretic Peptide 19308 pg/mL (0-125) H Total Protein 7.1 G/DL (6.4-8.2) Albumin 3.0 G/DL (3.4-5.0) L Globulin 4.1 g/dL Albumin/Globulin Ratio 0.7 (1.0-2.7) L Urine Color Yellow Urine Appearance Cloudy Urine pH 7 (4.5-8.0) Urine Specific [place] 1.010 (1.005-1.035) Urine Protein 2+ (NEGATIVE) H Urine Glucose (UA) Negative (NEGATIVE) Urine Ketones Negative (NEGATIVE) Urine Blood 3+ (NEGATIVE) H Urine Nitrite Negative (NEGATIVE) Urine Bilirubin Negative (NEGATIVE) Urine Urobilinogen 1 MG/DL (0.0-1.0) H Urine Leukocyte Esterase 1+ (NEGATIVE) H Urine RBC 2-4 /HPF (0 - 2) H Urine WBC 5-10 /HPF (0 - 2) H Urine Squamous Epithelial Cells Many /LPF (NONE/OCC) H Urine Bacteria Many /HPF (NONE) H EKG Diagnostic Results Rate: normal Rhythm: NSR ST Segments: no acute changes Rhythm Strip Diag. Results EP Interpretation: yes Rhythm: NSR, no PVC's, no ectopy Chest X-Ray Diagnostic Results Chest X-Ray Diagnostic Results : Chest X-Ray Ordered: Yes # of Views/Limited/Complete: 1 View Indication: Other EP Interpretation: Yes Interpretation: no effusion, no pneumothorax, other - infiltrate R, CVP in SVC Impression: Other Electronically Signed by: Electronically signed by Brayan Saucedo MD Last Vital Signs Date Time Temp Pulse Resp B/P (MAP) Pulse Ox O2 Delivery O2 Flow Rate FiO2 06/25/18 00:00 96.8 81 16 152/90 (110) 98 96.8 06/24/18 19:30 Nasal Cannula 2.0 Status: improved Disposition: ADMITTED INPATIENT Condition: Serious Brayan Saucedo M.D. Jun 24, 2018 13:48
[2018-06-24 15:10] VITALS: BP 179/98
[2018-06-24 15:18] LABS: BASOPHILS % (AUTO) 1.8 % (0.0-2.0); EOSINOPHILS % (AUTO) 0.7 % (0.0-3.0); HEMATOCRIT 37.2 % (37.0-47.0); HEMOGLOBIN 12.6 G/DL (12.0-16.0); LYMPHOCYTES % (AUTO) 23.8 % (20.0-45.0); MEAN CORPUSCULAR VOLUME 100 FL (80-99); MONOCYTES % (AUTO) 6.5 % (1.0-10.0); NEUTROPHILS % (AUTO) 67.2 % (45.0-75.0); PLATELET COUNT 199 K/UL (150-450); RED BLOOD COUNT 3.72 M/UL (4.20-5.40); RED CELL DISTRIBUTION WIDTH 12.3 % (11.6-14.8); WHITE BLOOD COUNT 7.2 K/UL (4.8-10.8)
[2018-06-24 15:33] LABS: ANION GAP 4 mmol/L (5-15); BLOOD UREA NITROGEN 17 mg/dL (7-18); CALCIUM 9.3 MG/DL (8.5-10.1); CARBON DIOXIDE 37 MMOL/L (21-32); CHLORIDE 105 MMOL/L (98-107); CREATININE 0.5 MG/DL (0.55-1.30); POTASSIUM 3.5 MMOL/L (3.5-5.1); SODIUM 145 MMOL/L (136-145)
[2018-06-24 15:40] LABS: INR 1.1 (0.9-1.1)
[2018-06-24 15:45] LABS: ALANINE AMINOTRANSFERASE 23 U/L (12-78); ALBUMIN/GLOBULIN RATIO 0.7 (1.0-2.7); ALKALINE PHOSPHATASE 141 U/L (46-116); ASPARTATE AMINO TRANSFERASE 26 U/L (15-37); BILIRUBIN,TOTAL 0.4 MG/DL (0.2-1.0); CREATINE KINASE 67 U/L (26-308)
[2018-06-24 15:46] LABS: APPEARANCE,URINE CLOUDY; BILIRUBIN, URINE NEGATIVE (NEGATIVE); GLUCOSE, URINE (UA) NEGATIVE (NEGATIVE); KETONES,URINE NEGATIVE (NEGATIVE); LEUKOCYTE ESTERASE ,URINE 1+ (NEGATIVE); NITRITE,URINE NEGATIVE (NEGATIVE); PH,URINE 7 (4.5-8.0); PROTEIN,URINE 2+ (NEGATIVE); UROBILINOGEN,URINE 1 MG/DL (0.0-1.0)
--- NOTE | 2018-06-24 15:49 | Diagnostic Imaging Report ---
Indication: Dyspnea Comparison: None A single view chest radiograph was obtained. Findings: There is suggestion of mild pulmonary vascular congestion. The left hemidiaphragm is silhouetted out which may be due to underlying effusion atelectasis or pneumonia. Correlate clinically. Right jugular central line is present the tip projected over the SVC. Bones are osteopenic. Moderate the arthrosis of the shoulders demonstrated especially in the left. IMPRESSION: Suspected mild pulmonary vascular congestion. Left basilar lung disease and/or pleural effusion. Correlate clinically. Central line in good position
[2018-06-24 15:52] LABS: COLOR,URINE YELLOW
[2018-06-24] MEDS ORDERED: COLACE100 MG GT (16:17)
[2018-06-24] MEDS ORDERED: CRANBERRY425 MG GT (16:17)
[2018-06-24] MEDS ORDERED: AMLODIPINE BESYL5 MG GT (16:17)
[2018-06-24] MEDS ORDERED: COREG6.25 MG GT (16:17)
[2018-06-24] MEDS ORDERED: Morphine Sulfate 2mg/ml Inj IVP ONE (16:45)
[2018-06-24 16:54] VITALS: BP 187/132
[2018-06-24 18:40] VITALS: BP 135/87
[2018-06-24] MEDS ORDERED: Albuterol/Ipratropium 3ml neb HHN PRN (19:00)
[2018-06-24 20:00] VITALS: BP 177/96
[2018-06-24] MEDS ORDERED: levETIRAcetam 500mg/5ml Liquid NG SCH (21:00)
[2018-06-24] MEDS ORDERED: Phenytoin Susp 100mg/4ml NG SCH (21:00)
[2018-06-24] MEDS: Pantoprazole Inj IVP SCH (21:23)
[2018-06-24] MEDS: Carvedilol 6.25mg Tab GT SCH (21:29)
[2018-06-24] MEDS ORDERED: PHENYTOIN100 MG/4 M GT (22:29)
[2018-06-24] MEDS ORDERED: MULTIVITAMINS1 EAC2 GT (22:37)
[2018-06-24] MEDS ORDERED: ACETAMINOPHEN325 M1 GT (22:37)
[2018-06-24] MEDS ORDERED: KEPPRA LIQ100 MG/1 M GT (22:37)
[2018-06-24] MEDS ORDERED: FUROSEMIDE20 M1 GT (22:37)
[2018-06-24] MEDS ORDERED: VITAMIN C500 M1 GT (22:37)
[2018-06-24] MEDS ORDERED: GUAIFENESIN-CO118 M1 ORAL (22:37)
[2018-06-24] MEDS: NovoLOG Insulin Flexpen SUBQ SCH (23:51)
[2018-06-25] VITALS: BP 152/90
[2018-06-25 04:00] VITALS: BP 144/82
[2018-06-25] MEDS: NovoLOG Insulin Flexpen SUBQ SCH ×3 (05:16→17:47)
[2018-06-25 06:22] LABS: BASOPHILS % (AUTO) 0.9 % (0.0-2.0); EOSINOPHILS % (AUTO) 0.8 % (0.0-3.0); HEMATOCRIT 33.5 % (37.0-47.0); LYMPHOCYTES % (AUTO) 19.4 % (20.0-45.0); MEAN CORPUSCULAR VOLUME 99 FL (80-99); MONOCYTES % (AUTO) 10.9 % (1.0-10.0); PLATELET COUNT 166 K/UL (150-450); RED BLOOD COUNT 3.37 M/UL (4.20-5.40); RED CELL DISTRIBUTION WIDTH 12.5 % (11.6-14.8); WHITE BLOOD COUNT 6.5 K/UL (4.8-10.8)
[2018-06-25 06:47] LABS: ALANINE AMINOTRANSFERASE 20 U/L (12-78); ALBUMIN 2.5 G/DL (3.4-5.0); ALBUMIN/GLOBULIN RATIO 0.6 (1.0-2.7); ALKALINE PHOSPHATASE 113 U/L (46-116); ANION GAP 2 mmol/L (5-15); ASPARTATE AMINO TRANSFERASE 23 U/L (15-37); BILIRUBIN,TOTAL 0.3 MG/DL (0.2-1.0); BLOOD UREA NITROGEN 17 mg/dL (7-18); CALCIUM 8.9 MG/DL (8.5-10.1); CARBON DIOXIDE 35 MMOL/L (21-32); CHLORIDE 109 MMOL/L (98-107); CREATININE 0.6 MG/DL (0.55-1.30); POTASSIUM 3.3 MMOL/L (3.5-5.1); SODIUM 145 MMOL/L (136-145)
[2018-06-25 08:00] VITALS: BP 130/67
--- NOTE | 2018-06-25 09:05 | Diagnostic Imaging Report ---
Indication: Abnormal chest sounds Technique: One view of the chest Comparison: 06/24/2018 Findings: Right jugular central venous catheter is again demonstrated. There is suggestion of increased pleural fluid on the left. There is increased basilar atelectasis and possibly pleural fluid on the right. Mild pulmonary venous congestion is probably unchanged. Degenerative changes of both shoulders are again demonstrated. Impression: Slightly increased left pleural fluid, possibly increased right pleural fluid and basilar atelectasis, over one day Persistent borderline interstitial congestion
[2018-06-25] MEDS: Pantoprazole Inj IVP SCH ×2 (09:29→20:50)
[2018-06-25] MEDS: levETIRAcetam 500mg/5ml Liquid GT SCH ×2 (09:30→20:52)
[2018-06-25] MEDS: Docusate 100mg cap ORAL SCH (09:31)
[2018-06-25] MEDS: Carvedilol 6.25mg Tab GT SCH ×2 (09:31→20:52)
[2018-06-25] MEDS: Aspirin Baby 81mg GT SCH (09:31)
[2018-06-25] MEDS: Phenytoin Susp 100mg/4ml GT SCH ×2 (09:31→20:53)
[2018-06-25] MEDS: Heparin 5000 units/ml inj SUBQ SCH ×2 (09:33→21:02)
[2018-06-25 12:00] VITALS: BP 138/69
[2018-06-25] MEDS: Cefepime HCl 1 GM in D5W 55 ML IVPB SCH (12:29)
--- NOTE | 2018-06-25 13:15 | Consultation ---
DATE OF CONSULTATION: 06/24/2018 CARDIOLOGY CONSULTATION CONSULTING PHYSICIAN: Brayan Card M.D. REQUESTING PHYSICIAN: Mcihael Sprague M.D. REASON FOR CONSULTATION: Uncontrolled hypertension in the setting of coronary artery disease. HISTORY OF PRESENT ILLNESS: This is an elderly female, age 87, who resides at a long-term facility and was transferred by paramedics because of hypoxia and fevers to 102. The patient had recently been started on antimicrobials for Pseudomonas pneumonia. She did fairly deteriorated prompting this hospital evaluation. In the emergency room, she was noted to have significant blood pressure elevation with difficulty obtaining peripheral access and subsequently 2 efforts were required to place a central triple lumen line in the right internal jugular. PAST MEDICAL HISTORY: Includes coronary artery disease, history of myocardial infarction, hypertension, COPD, type 2 diabetes mellitus, dysphagia with G-tube cerebrovascular disease with prior cerebrovascular accident, seizure disorder. ALLERGIES: Include sulfa and penicillin. FAMILY HISTORY: Noncontributory. SOCIAL HISTORY: No data available regarding prior smoking or alcohol use. REVIEW OF SYSTEMS: Not obtainable. Pertinent data from review of records is outlined as above. PHYSICAL EXAM: GENERAL: Mild respiratory distress. VITAL SIGNS: Afebrile, blood pressure 179/98, pulse 98, respiratory rate 22, oxygen saturation on 1 liter nasal cannula is 97%. HEENT: Temporal wasting. Pale conjunctivae. Oropharynx clear. NECK: Supple. LUNGS: No accessory muscle use. Lungs with coarse breath sounds and rhonchi. CARDIAC: Regular rhythm and rate. Normal S1, S2 with a fourth heart sound. ABDOMEN: Soft, nontender. G-tube intact. EXTREMITIES: No edema. Contractures noted. DIAGNOSTIC DATA: EKG with sinus rhythm and no acute abnormality. Chest x-ray reveals right-sided infiltrate with central line in the superior vena cava. White count 7.2, hemoglobin 12.8. Sodium 145, potassium 3.5, bicarb 37, BUN 17, creatinine 0.5. Troponin 0.040. Lactic acid normal and Pro-natriuretic peptide 11,000. Albumin 3.0. IMPRESSION: 1. Pseudomonas pneumonia. 2. Acute respiratory insufficiency with hypoxia. 3. Acute on chronic diastolic congestive heart failure. 4. Ischemic cardiomyopathy. 5. Hypertensive heart disease with hypertensive urgency. 6. Cerebrovascular disease with dementia. 7. Dysphagia with G-tube. 8. Type 2 diabetes mellitus. PLAN: 1. Panculture and broad-spectrum antibiotics. 2. Titration of antihypertensives. 3. Hold diuretics. 4. DVT and stress ulcer prophylaxis, respiratory hygiene. 5. Further recommendations will follow based on clinical course. 6. Maintain anti-platelet therapy and statin drug. Brayan Card M.D. DR: SHELLI JOB#: [id number] CC:
[2018-06-25 16:00] VITALS: BP 116/66
[2018-06-25] MEDS: Vancomycin 1gm/D5W 275ml IVPB SCH ×2 (17:11)
--- NOTE | 2018-06-25 18:00 | History and Physical Report ---
DATE OF ADMISSION: 06/24/2018 CHIEF COMPLAINT: Respiratory failure, shortness of breath and encephalopathy. HISTORY OF PRESENT ILLNESS: The patient is an 87-year-old female with a history of congestive heart failure, hypertension, diabetes, seizure disorder, encephalopathy and stroke. She was transferred from a longterm facility with complaints of hypoxemia and shortness of breath. The patient apparently became congested and short of breath. Suddenly, she required non-rebreather, was transferred eventually by paramedics here to [facility]. On evaluation here, she had x-ray evidence of bilateral infiltrates consistent with either pneumonia or CHF. She had no fever and her white count was normal. Empiric antibiotics been instituted and the patient is now admitted for further evaluation and care. She is nonverbal at baseline and is unable to provide any history. PAST MEDICAL HISTORY: As above. PAST SURGICAL HISTORY: History of a G-tube. CURRENT MEDICATIONS: Reconciled and reviewed. ALLERGIES: Penicillin, sulfa and sulfacetamide. FAMILY HISTORY: Noncontributory. SOCIAL HISTORY: There is no known history of tobacco, ethanol, or drugs. REVIEW OF SYSTEMS: From the patient is unobtainable, as she is nonverbal. PHYSICAL EXAMINATION: GENERAL: The patient is a well-developed female, in no apparent distress. She is currently resting and is in no apparent distress. VITAL SIGNS: Temperature 97 degrees, pulse 85, respirations 17 and blood pressure is 177/96. NECK: Supple. There is no jugular venous distention. HEART: Regular rate and rhythm. LUNGS: Clear anteriorly. ABDOMEN: Soft, nontender, and nondistended. EXTREMITIES: No clubbing, cyanosis, or edema. LABORATORY AND DIAGNOSTIC DATA: Labs showed a UA 5 to 10 wbc's. White count 7, hemoglobin 12, hematocrit 37, and platelets of 189. INR is 1.1 and PTT 24. Sodium 145, potassium 3.5, chloride 105, bicarbonate 37, BUN 17, and creatinine was 0.5. Chest x-ray showed pulmonary vascular congestion, left basilar lung disease and pleural effusion. ASSESSMENT: This is a pleasant female admitted with complaints of shortness of breath secondary to CHF and pneumonia. PROBLEM LIST: 1. CHF. 2. Pneumonia. 3. Toxic metabolic encephalopathy. 4. Respiratory failure. 5. Seizure disorder. 6. History of stroke and encephalopathy. 7. Functional quadriplegia. PLAN: 1. IV antibiotics. 2. Intravenous steroids. 3. Respiratory treatments. 4. Supplemental oxygen as needed. 5. Cardiology and Infectious Disease consultations to be obtained. Michael Sprague M.D. DR: SHEREE JOB#: [id number] CC:
[2018-06-25 20:00] VITALS: BP 139/66
[2018-06-25] MEDS: Dyna-Hex 2% Top Sol 2oz TOPIC SCH (20:50)
--- NOTE | 2018-06-25 21:30 | Consultation ---
DATE OF CONSULTATION: 06/25/2018 INFECTIOUS DISEASE CONSULTATION CONSULTING PHYSICIAN: Gregory Albright M.D. PRIMARY ATTENDING PHYSICIAN: Michael Sprague M.D. REASON FOR CONSULT: UTI and pneumonia. HISTORY OF PRESENT ILLNESS: This is an 87-year-old female who is a [facility] resident, admitted last night because of sudden onset of shortness of breath. The patient developed decrease in O2 saturation and had fever of 102 degrees yesterday morning. She was started on Levaquin yesterday for pneumonia. She is not a source of history. PAST MEDICAL HISTORY: Significant for diabetes mellitus, hypertension, dementia. The patient is status post G-tube placement. She has history of CVA and has history of coronary artery disease. ALLERGIES: Allergic to penicillin, sulfa drug, sucralfate, but tolerated cefepime and meropenem in previous admission. MEDICATIONS: Vancomycin, cefepime, aspirin, Colace, Keppra, heparin, insulin, amlodipine, atorvastatin, carvedilol, Protonix, clonidine. SOCIAL HISTORY: half-way resident with poor mental and functional status. REVIEW OF SYSTEMS: Not obtainable. PHYSICAL EXAMINATION: VITAL SIGNS: Temperature 97.5, pulse 67, blood pressure 138/69. GENERAL APPEARANCE: No acute distress. Fairly opens eyes. HEAD AND NECK: She has right internal jugular central line. LUNGS: Clear. HEART: Normal rate. ABDOMEN: Distended and G-tube in place. EXTREMITIES: No significant edema. LABORATORY AND DIAGNOSTIC DATA: Sodium 145, potassium 3.3, chloride 109, bicarbonate 35, BUN 17, creatinine 0.6, glucose 124. WBC 6.5, hemoglobin 11, hematocrit 33.5, platelet 166,000. UA showed wbc of 5 to 10, 3+ positive for blood. Urine culture growing gram-negative kim. Chest x-ray, left pleural effusion, right pleural effusion, bibasilar atelectasis. IMPRESSION: 1. Bacteriuria, likely UTI. 2. Pneumonia. 3. Diabetes mellitus. 4. Hypertension. 5. Advanced dementia. 6. Altered mental status. 7. 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 RECOMMENDATION: We will continue vancomycin and cefepime. We will follow up the cultures. At the end of my exam, I thank Dr. Sprague for involving me in the care of this patient. Gregory Albright M.D. DR: Darwin JOB#: [id number] CC: PHYLLIS
--- NOTE | 2018-06-25 21:45 | Consultation ---
DATE OF CONSULTATION: 06/25/2018 PULMONARY CONSULTATION REASON FOR CONSULTATION: Hypoxemia, shortness of breath. HISTORY OF PRESENT ILLNESS: This is a 87-year-old female, known to me from prior admission. The patient presents with noted hypoxemia, oxygen desaturation, also has fevers. The patient was seen and evaluated in the emergency room and admitted. I was called to assist and evaluate further. Followup x-rays notable for left effusion and atelectasis versus possible early pneumonia. The patient is a fairly poor historian. The patient has had prior history of pulmonary infections including Pseudomonas. She is Full Code. The patient is G-tube dependent, does have a history of aspiration. The patient's care discussed and reviewed. PAST MEDICAL HISTORY: Notable for the above, CVA, history of AR, history of CAD, history of G-tube, history of aspiration, history of prior pneumonia, history of Pseudomonas, history of cerebral infarction, contractures, history of syncope, COPD, diabetes. MEDICATIONS: Reviewed. ALLERGIES: Reviewed. SOCIAL HISTORY: Resides in a senior care facility. Nonsmoker and nondrinker. Mostly bedbound at this time. REVIEW OF SYSTEMS: Difficult to obtain due to the patient's present state. PHYSICAL EXAMINATION: GENERAL: A female who is chronically ill, advanced age. VITAL SIGNS: Blood pressure 138/69, pulse 67, respiratory rate 18, O2 saturation 99%, temperature is 97.5. HEENT: Negative. Extraocular movements are grossly intact NECK: Supple. LUNGS: Scattered rhonchi. Moderate air entry reduced in both bases. CARDIAC: S1 and S2. Regular rate and rhythm without murmurs, rubs, or gallops. ABDOMEN: Soft, nontender, nondistended. EXTREMITIES: No cyanosis or clubbing. Contractures noted overall. SKIN: Noted and reviewed. LABORATORY DATA: Reviewed. White count 6.5, hemoglobin 11, hematocrit 33.5. Chemistry noted. The patient's BUN of 17, creatinine is 0.6, sodium 145, potassium 3.3. Albumin 2.5. X-rays noted. Bilateral small pleural effusion, possible early pneumonia. IMPRESSION: Oxygen desaturation, possible mucus plugging, pneumonia, pleural effusions, respiratory insufficiency, protein-calorie malnutrition, dementia, aspiration, G-tube, prior history of CVA. RECOMMENDATIONS: Supportive care. Respiratory therapy as outlined. Oxygen therapy as outlined. Monitor clinically and avoid positive fluid balance if able. Replace electrolytes. G-tube feeding. Elevate head. Empiric antibiotics and cultures if able to obtain. DVT prophylaxis and monitor clinically for further changes and interventions and ongoing recommendations. Navdeep Mcgowan M.D. DR: Tamiko JOB#: [id number] CC:
--- NOTE | 2018-06-25 23:39 | Cardiology Report ---
APPROVED REPORT EKG Measurement Heart [id number] IA [id number] [id number] Sinus rhythm with marked sinus arrhythmia with occasional premature ventricular complexes LBBB Abnormal ECG
[2018-06-26] VITALS: BP 152/86
[2018-06-26 04:00] VITALS: BP 148/72
--- NOTE | 2018-06-26 04:15 | Progress Note ---
DATE: 06/25/2018 CARDIOLOGY PROGRESS NOTE SUBJECTIVE: The patient is still congested, but less distress than yesterday. She remains hypoxic. She is on oxygen supplementation. OBJECTIVE: VITAL SIGNS: Blood pressure 139/66, pulse 65, respiratory rate 20, afebrile, and oxygen saturation on two liters is 99% to 100%. NECK: Jugular venous pressure grossly elevated. LUNGS: Diminished breath sounds and rales. CARDIAC: Regular rhythm and rate. Normal S1 and S2 with a 1/6 systolic apical murmur. ABDOMEN: Soft and nontender. EXTREMITIES: 1+ dependent edema. LABORATORY DATA: Chest x-ray today reveals increased pulmonary venous congestion and bilateral pleural effusion. ABG - 7.42, 46, and 118. Sodium 145, potassium 3.3, bicarb 35, BUN 17, and creatinine 0.5. Albumin 2.5. Hemoglobin 11 and white count 6.5. IMPRESSION: 1. Acute on chronic diastolic congestive heart failure. 2. Hypoxia. 3. Healthcare-acquired pneumonia with pleural effusions. 4. Moderate protein-calorie malnutrition. 5. Dysphagia with G-tube. 6. Cerebrovascular disease with dementia. 7. Hypokalemia. PLAN: 1. Respiratory hygiene. 2. Antimicrobials. 3. Oxygenation. 4. DVT prophylaxis. 5. Nutrition by feeding tube. 6. Diuresis by IV route. 7. Replace potassium. 8. Check magnesium. 9. Follow up echocardiogram. Brayan Card M.D. DR: DONYA JOB#: [id number] CC:
[2018-06-26] MEDS: NovoLOG Insulin Flexpen SUBQ SCH ×4 (05:11→17:58)
[2018-06-26 07:15] LABS: BASOPHILS % (AUTO) 0.7 % (0.0-2.0); EOSINOPHILS % (AUTO) 3.8 % (0.0-3.0); HEMATOCRIT 32.9 % (37.0-47.0); HEMOGLOBIN 11.1 G/DL (12.0-16.0); MEAN CORPUSCULAR VOLUME 101 FL (80-99); MONOCYTES % (AUTO) 9.5 % (1.0-10.0); PLATELET COUNT 163 K/UL (150-450); RED BLOOD COUNT 3.27 M/UL (4.20-5.40); RED CELL DISTRIBUTION WIDTH 12.9 % (11.6-14.8); WHITE BLOOD COUNT 6.2 K/UL (4.8-10.8)
[2018-06-26 07:40] LABS: ALANINE AMINOTRANSFERASE 20 U/L (12-78); ALBUMIN 2.6 G/DL (3.4-5.0); ALBUMIN/GLOBULIN RATIO 0.7 (1.0-2.7); ALKALINE PHOSPHATASE 110 U/L (46-116); ANION GAP 3 mmol/L (5-15); ASPARTATE AMINO TRANSFERASE 23 U/L (15-37); BILIRUBIN,TOTAL 0.2 MG/DL (0.2-1.0); BLOOD UREA NITROGEN 23 mg/dL (7-18); CALCIUM 8.7 MG/DL (8.5-10.1); CARBON DIOXIDE 35 MMOL/L (21-32); CHLORIDE 109 MMOL/L (98-107); CREATININE 0.5 MG/DL (0.55-1.30); POTASSIUM 3.8 MMOL/L (3.5-5.1); SODIUM 147 MMOL/L (136-145)
[2018-06-26 08:00] VITALS: BP 164/92
[2018-06-26] MEDS: Pantoprazole Inj IVP SCH ×2 (08:22→21:50)
[2018-06-26] MEDS: levETIRAcetam 500mg/5ml Liquid GT SCH ×2 (08:23→21:49)
[2018-06-26] MEDS: Docusate 100mg cap ORAL SCH (08:24)
[2018-06-26] MEDS: Aspirin Baby 81mg GT SCH (08:25)
[2018-06-26] MEDS: Heparin 5000 units/ml inj SUBQ SCH ×2 (08:27→21:51)
[2018-06-26] MEDS: Carvedilol 6.25mg Tab GT SCH ×2 (08:29→21:49)
--- NOTE | 2018-06-26 08:48 | Pulmonology Progress Note ---
Assessment/Plan Assessment/Plan IMPRESSION: hypoxemia, possible mucus plugging, pneumonia, pleural effusions, respiratory insufficiency, protein-calorie malnutrition, dementia, aspiration, G-tube, prior history of CVA. PLAN continue same keep negative antibiotics respiratory care monitoring imaging aspiration precautions impression, plan, and exam edited and reviewed in detail care discussed with RN Subjective Allergies: Coded Allergies: PENICILLINS (Verified Allergy, Unknown, 02/04/18) SULFA (SULFONAMIDE ANTIBIOTICS) (Verified Allergy, Unknown, 02/04/18) SULFACETAMIDE (Unverified Allergy, Unknown, 06/24/18) Subjective care noted ABG reviewed findings discussed Objective Last 24 Hour Vital Signs Date Time Temp Pulse Resp B/P (MAP) Pulse Ox O2 Delivery O2 Flow Rate FiO2 06/26/18 08:29 77 164/92 06/26/18 08:29 77 164/92 06/26/18 04:00 96.7 69 20 148/72 (97) 100 96.7 06/26/18 00:00 97.0 69 20 152/86 (108) 100 97.0 06/25/18 21:00 Nasal Cannula 2.0 Nasal Cannula 2.0 06/25/18 20:52 65 139/66 06/25/18 20:51 65 139/66 06/25/18 20:00 97.3 65 20 139/66 (90) 100 97.3 06/25/18 19:38 66 18 Nasal Cannula 2.0 28 06/25/18 16:00 97.2 66 17 116/66 (83) 100 97.2 66 06/25/18 12:00 97.5 67 18 138/69 (92) 99 97.5 06/25/18 09:32 68 20 Nasal Cannula 2.0 06/25/18 09:31 66 130/67 06/25/18 09:31 66 130/67 06/25/18 09:00 Nasal Cannula 2.0 Nasal Cannula 2.0 Intake and Output 06/25/18 06/26/18 19:00 07:00 Intake Total 800.000 ml 530 ml Balance 800.000 ml 530 ml Intake Free Water 60 ml 130 ml IV Total 330.000 ml Tube Feeding 410 ml 400 ml # Voids 3 # Bowel Movements 2 Objective GENERAL: A female who is chronically ill, advanced age. HEENT: Negative. Extraocular movements are grossly intact NECK: Supple. LUNGS: some rhonchi. Moderate air entry reduced in both bases. CARDIAC: S1 and S2. Regular rate and rhythm without murmurs, rubs, or gallops. ABDOMEN: Soft, nontender, nondistended. EXTREMITIES: No cyanosis or clubbing. Contractures noted overall. SKIN: Noted and reviewed. Microbiology Date/Time Source Procedure Growth Status 06/24/18 15:00 Blood Blood Culture - Preliminary NO GROWTH AFTER 24 HOURS Resulted 06/24/18 14:45 Blood Blood Culture - Preliminary NO GROWTH AFTER 24 HOURS Resulted 06/24/18 15:20 Urine,Clean Catch Urine Culture - Final Escherichia Coli Complete 06/24/18 18:05 Rectum Received 06/24/18 17:00 Rectum VRE Culture - Final NO VANCOMYCIN RESISTANT ENTEROCOCCUS ... Complete 06/24/18 17:00 Rectum - Final NO CARBAPENEM-RESISTANT ENTEROBACTERI... Complete Laboratory Tests 06/25/18 15:29: Arterial Blood pH 7.420, Arterial Blood Partial Pressure CO2 45.8H, Arterial Blood Partial Pressure O2 118.4H, Arterial Blood HCO3 29.0H, Arterial Blood Oxygen Saturation 98.1H, Arterial Blood Base Excess 4.0, Jose Luis Test Positive 06/26/18 05:10: White Blood Count 6.2, Red Blood Count 3.27L, Hemoglobin 11.1L, Hematocrit 32.9L , Mean Corpuscular Volume 101H, Mean Corpuscular Hemoglobin 34.1H, Mean Corpuscular Hemoglobin Concent 33.9, Red Cell Distribution Width 12.9, Platelet Count 163, Mean Platelet Volume 8.8, Neutrophils (%) (Auto) 66.0, Lymphocytes (% ) (Auto) 20.0, Monocytes (%) (Auto) 9.5, Eosinophils (%) (Auto) 3.8H, Basophils (%) (Auto) 0.7, Sodium Level 147H, Potassium Level 3.8, Chloride Level 109H, Carbon Dioxide Level 35H, Anion Gap 3L, Blood Urea Nitrogen 23H, Creatinine 0.5L , Estimat Glomerular Filtration Rate , Glucose Level 146H, Calcium Level 8.7, Magnesium Level 1.9, Total Bilirubin 0.2, Aspartate Amino Transf (AST/SGOT) 23, Alanine Aminotransferase (ALT/SGPT) 20, Alkaline Phosphatase 110, Pro-B-Type Natriuretic Peptide 3151H, Total Protein 6.5, Albumin 2.6L, Globulin 3.9, Albumin/Globulin Ratio 0.7L Current Medications Medications (Trade) Dose Ordered Sig/Singh Route PRN Reason Start Time Stop Time Status Last Admin Dose Admin Albuterol/ Ipratropium (Albuterol/ Ipratropium) 3 ml Q4H PRN HHN Bronchospasm 06/24/18 19:00 06/29/18 18:59 Amlodipine Besylate (Norvasc) 5 mg EVERY 12 HOURS ORAL 06/24/18 21:00 07/24/18 20:59 06/26/18 08:29 Aspirin (ASA) 81 mg DAILY GT 06/25/18 09:00 07/25/18 08:59 06/26/18 08:25 Atorvastatin Calcium (Lipitor) 10 mg BEDTIME GT 06/24/18 21:00 07/24/18 20:59 06/25/18 20:51 Carvedilol (Coreg) 6.25 mg EVERY 12 HOURS GT 06/24/18 21:00 07/24/18 20:59 06/26/18 08:29 Cefepime HCl 1 gm/ Dextrose 55 ml @ 110 mls/hr Q24H IVPB 06/25/18 13:00 07/02/18 12:59 06/25/18 12:29 Chlorhexidine Gluconate (Azra-Hex 2%) 1 applic DAILY@2000 TOPIC 06/25/18 20:00 07/25/18 19:59 06/25/18 20:50 Clonidine HCl (Catapres Tab) 0.1 mg Q6H PRN ORAL For High Blood Pressure 06/24/18 19:00 07/24/18 18:59 Dextrose (Dextrose 50%) 25 ml STAT PRN IV Hypoglycemia 06/24/18 22:45 07/24/18 22:44 Dextrose (Dextrose 50%) 50 ml STAT PRN IV Hypoglycemia 06/24/18 22:45 07/24/18 22:44 Docusate Sodium (Colace) 100 mg DAILY ORAL 06/25/18 09:00 07/25/18 08:59 06/26/18 08:24 Furosemide (Lasix) 40 mg DAILY IV 06/26/18 09:00 07/26/18 08:59 06/26/18 08:25 Heparin Sodium (Porcine) (Heparin 5000 units/ml) 5,000 units EVERY 12 HOURS SUBQ 8/30/18 09:00 07/25/18 08:59 06/26/18 08:27 Insulin Aspart (NovoLOG) Q6HR SUBQ 06/25/18 00:00 07/25/18 00:00 Levetiracetam (Keppra) 400 mg Q12HR GT 06/25/18 09:00 07/24/18 20:59 06/26/18 08:23 Pantoprazole (Protonix) 40 mg EVERY 12 HOURS IVP 06/24/18 21:00 07/24/18 20:59 06/26/18 08:22 Phenytoin (Dilantin) 125 mg Q12HR GT 06/25/18 09:00 07/24/18 20:59 06/25/18 20:53 Potassium Chloride (K-Dur) 20 meq DAILY GT 06/26/18 09:00 07/26/18 08:59 06/26/18 08:24 Vancomycin HCl (Vanco rx to dose) 1 ea DAILY PRN MISC Per rx protocol 06/24/18 19:00 07/24/18 18:59 Vancomycin HCl 1 gm/Dextrose 275 ml @ 183.708 mls/hr Q24H IVPB 06/25/18 16:00 06/30/18 15:59 06/25/18 17:11 Navdeep Mcgowan MD Jun 26, 2018 08:48
[2018-06-26] MEDS: Phenytoin Susp 100mg/4ml GT SCH ×2 (10:15→21:50)
[2018-06-26 12:00] VITALS: BP 142/86
--- NOTE | 2018-06-26 12:11 | Diagnostic Imaging Report ---
Indication: Cough Comparison: 06/25/2018 A single view chest radiograph was obtained. Findings: Silhouetting of the left hemidiaphragm which is obscured may be on the basis of a small pleural effusion. Mild pulmonary vascular congestion suspected. Right jugular central line is unchanged. Heart is mildly enlarged but stable. IMPRESSION: Suspected mild interstitial edema. Correlate clinically. Left pleural effusion suspected.
[2018-06-26] MEDS: Cefepime HCl 1 GM in D5W 55 ML IVPB SCH (14:25)
--- NOTE | 2018-06-26 14:48 | General Progress Note ---
Assessment/Plan Problem List: (1) Acute on chronic diastolic (congestive) heart failure ICD Codes: I50.33 - Acute on chronic diastolic (congestive) heart failure SNOMED: 10685665, 548874375 (2) Dyspnea ICD Codes: R06.00 - Dyspnea, unspecified SNOMED: 478453582 (3) Respiratory distress ICD Codes: R06.03 - Acute respiratory distress SNOMED: 342256780 (4) UTI (urinary tract infection) ICD Codes: N39.0 - Urinary tract infection, site not specified SNOMED: 28648588 Qualifiers: Qualified Codes: N39.0 - Urinary tract infection, site not specified (5) Hypoxia ICD Codes: R09.02 - Hypoxemia SNOMED: 617963098 (6) Pneumonia ICD Codes: J18.9 - Pneumonia, unspecified organism SNOMED: 393641146 Qualifiers: Qualified Codes: J18.9 - Pneumonia, unspecified organism Status: stable, progressing Assessment/Plan cont current rx abx resp rx o2 follow up cultures iv abx increase water flushes sz rx tube feeds Subjective ROS Limited/Unobtainable: Yes Constitutional: Reports: malaise, weakness HEENT: Reports: no symptoms Cardiovascular: Reports: no symptoms Respiratory: Reports: cough, shortness of breath Gastrointestinal/Abdominal: Reports: difficulty swallowing Genitourinary: Reports: no symptoms Neurologic/Psychiatric: Reports: pre-existing deficit, seizure Endocrine: Reports: no symptoms Hematologic/Lymphatic: Reports: no symptoms Allergies: Coded Allergies: PENICILLINS (Verified Allergy, Unknown, 02/04/18) SULFA (SULFONAMIDE ANTIBIOTICS) (Verified Allergy, Unknown, 02/04/18) SULFACETAMIDE (Unverified Allergy, Unknown, 06/24/18) All Systems: reviewed and negative except above Subjective no events. seems less congested. no fever or chills. cxr with decreased chf. elevated sodium noted Objective Last 24 Hour Vital Signs Date Time Temp Pulse Resp B/P (MAP) Pulse Ox O2 Delivery O2 Flow Rate FiO2 06/26/18 12:00 98.0 71 19 142/86 (104) 100 98.0 06/26/18 09:14 69 18 Nasal Cannula 2.0 28 06/26/18 08:29 77 164/92 06/26/18 08:29 77 164/92 06/26/18 08:15 Nasal Cannula 2.0 Nasal Cannula 2.0 06/26/18 08:00 98.7 80 21 164/92 (116) 99 98.7 06/26/18 04:00 96.7 69 20 148/72 (97) 100 96.7 06/26/18 00:00 97.0 69 20 152/86 (108) 100 97.0 06/25/18 21:00 Nasal Cannula 2.0 Nasal Cannula 2.0 06/25/18 20:52 65 139/66 06/25/18 20:51 65 139/66 06/25/18 20:00 97.3 65 20 139/66 (90) 100 97.3 06/25/18 19:38 66 18 Nasal Cannula 2.0 28 06/25/18 16:00 97.2 66 17 116/66 (83) 100 97.2 66 Intake and Output 06/25/18 06/26/18 19:00 07:00 Intake Total 800.000 ml 530 ml Balance 800.000 ml 530 ml Intake Free Water 60 ml 130 ml IV Total 330.000 ml Tube Feeding 410 ml 400 ml # Voids 3 # Bowel Movements 2 Laboratory Tests 06/25/18 15:29: Arterial Blood pH 7.420, Arterial Blood Partial Pressure CO2 45.8H, Arterial Blood Partial Pressure O2 118.4H, Arterial Blood HCO3 29.0H, Arterial Blood Oxygen Saturation 98.1H, Arterial Blood Base Excess 4.0, Jose Luis Test Positive 06/26/18 05:10: White Blood Count 6.2, Red Blood Count 3.27L, Hemoglobin 11.1L, Hematocrit 32.9L , Mean Corpuscular Volume 101H, Mean Corpuscular Hemoglobin 34.1H, Mean Corpuscular Hemoglobin Concent 33.9, Red Cell Distribution Width 12.9, Platelet Count 163, Mean Platelet Volume 8.8, Neutrophils (%) (Auto) 66.0, Lymphocytes (% ) (Auto) 20.0, Monocytes (%) (Auto) 9.5, Eosinophils (%) (Auto) 3.8H, Basophils (%) (Auto) 0.7, Sodium Level 147H, Potassium Level 3.8, Chloride Level 109H, Carbon Dioxide Level 35H, Anion Gap 3L, Blood Urea Nitrogen 23H, Creatinine 0.5L , Estimat Glomerular Filtration Rate , Glucose Level 146H, Calcium Level 8.7, Magnesium Level 1.9, Total Bilirubin 0.2, Aspartate Amino Transf (AST/SGOT) 23, Alanine Aminotransferase (ALT/SGPT) 20, Alkaline Phosphatase 110, Pro-B-Type Natriuretic Peptide 3151H, Total Protein 6.5, Albumin 2.6L, Globulin 3.9, Albumin/Globulin Ratio 0.7L Height (Feet): 5 Height (Inches): 5.00 Weight (Pounds): 168 General Appearance: WD/WN, lethargic, confused Neck: supple Cardiovascular: regular rhythm Respiratory/Chest: rhonchi - bilaterally Abdomen: normal bowel sounds, non tender, soft, no organomegaly Neurologic: unresponsive, aphasia Michael Sprague MD Jun 26, 2018 14:48
[2018-06-26 16:00] VITALS: BP 178/93
[2018-06-26] MEDS: Vancomycin 1gm/D5W 275ml IVPB SCH ×2 (16:21)
[2018-06-26 20:00] VITALS: BP 163/94
[2018-06-26] MEDS: Dyna-Hex 2% Top Sol 2oz TOPIC SCH (21:49)
[2018-06-27] VITALS: BP 156/86
[2018-06-27 04:00] VITALS: BP 152/76
--- NOTE | 2018-06-27 04:00 | Progress Note ---
DATE: 06/26/2018 CARDIOLOGY PROGRESS NOTE SUBJECTIVE: The patient is less congested. She is defervesced. She has less shortness of breath. She is nonverbal. OBJECTIVE: VITAL SIGNS: Blood pressure 163/94, pulse 68, respiratory rate 18, and afebrile. LUNGS: Diminished breath sounds. Scattered rhonchi. HEART: Regular rhythm and rate. Normal S1, S2. ABDOMEN: Soft. EXTREMITIES: Trace edema. LABORATORY AND DIAGNOSTIC DATA: White count 6.2, hemoglobin 11.1. Sodium 147, potassium 3.8, bicarbonate 35, BUN 23, and creatinine 0.5 Pro-natriuretic peptide has decreased to 3100 from 11,000. Chest x-ray reveals left pleural effusion and mild interstitial edema. IMPRESSION: 1. Acute on chronic diastolic congestive heart failure, improved. 2. Dehydration and hypernatremia, secondary to diuresis. 3. Healthcare-acquired pneumonia. 4. Hypoxia. 5. Pleural effusion. 6. Cerebrovascular disease with dementia. 7. Dysphagia and aphasia. 8. Protein-calorie malnutrition. 9. Hypertensive heart disease with labile blood pressure. PLAN: 1. Hold diuretics. 2. Free water replacement. 3. Antimicrobials. 4. Respiratory hygiene. 5. Optimize antihypertensive therapy. Brayan Card M.D. DR: NGOC JOB#: [id number] CC:
[2018-06-27] MEDS ORDERED: Vancomycin 750mg/NS 250ml IVPB SCH (05:00)
[2018-06-27] MEDS: NovoLOG Insulin Flexpen SUBQ SCH ×4 (06:00→18:00)
[2018-06-27 08:00] VITALS: BP 173/76
[2018-06-27 08:21] LABS: ALANINE AMINOTRANSFERASE 19 U/L (12-78); ALBUMIN 2.5 G/DL (3.4-5.0); ALBUMIN/GLOBULIN RATIO 0.6 (1.0-2.7); ALKALINE PHOSPHATASE 112 U/L (46-116); ANION GAP 1 mmol/L (5-15); ASPARTATE AMINO TRANSFERASE 22 U/L (15-37); BILIRUBIN,TOTAL 0.3 MG/DL (0.2-1.0); BLOOD UREA NITROGEN 20 mg/dL (7-18); CARBON DIOXIDE 37 MMOL/L (21-32); CHLORIDE 107 MMOL/L (98-107); CREATININE 0.6 MG/DL (0.55-1.30); POTASSIUM 3.8 MMOL/L (3.5-5.1); SODIUM 145 MMOL/L (136-145)
[2018-06-27] MEDS: levETIRAcetam 500mg/5ml Liquid GT SCH ×2 (08:49→20:26)
[2018-06-27] MEDS: Pantoprazole Inj IVP SCH ×2 (08:50→20:26)
[2018-06-27] MEDS: Phenytoin Susp 100mg/4ml GT SCH ×2 (08:50→20:26)
[2018-06-27] MEDS: Docusate 100mg cap ORAL SCH (08:53)
[2018-06-27] MEDS: Aspirin Baby 81mg GT SCH (08:53)
[2018-06-27] MEDS: Carvedilol 6.25mg Tab GT SCH ×2 (08:54→20:25)
[2018-06-27] MEDS: Heparin 5000 units/ml inj SUBQ SCH ×2 (08:55→20:27)
--- NOTE | 2018-06-27 08:59 | General Progress Note ---
Assessment/Plan Problem List: (1) Acute on chronic diastolic (congestive) heart failure ICD Codes: I50.33 - Acute on chronic diastolic (congestive) heart failure SNOMED: 22882462, 481637056 (2) Dyspnea ICD Codes: R06.00 - Dyspnea, unspecified SNOMED: 130344791 (3) Respiratory distress ICD Codes: R06.03 - Acute respiratory distress SNOMED: 073958674 (4) UTI (urinary tract infection) ICD Codes: N39.0 - Urinary tract infection, site not specified SNOMED: 20211640 Qualifiers: Qualified Codes: N39.0 - Urinary tract infection, site not specified (5) Hypoxia ICD Codes: R09.02 - Hypoxemia SNOMED: 147907689 (6) Pneumonia ICD Codes: J18.9 - Pneumonia, unspecified organism SNOMED: 280394499 Qualifiers: Qualified Codes: J18.9 - Pneumonia, unspecified organism Status: stable, progressing Assessment/Plan cont current rx abx resp rx o2 follow up cultures iv abx adjusted water flushes sz rx tube feeds dc planning Subjective ROS Limited/Unobtainable: No Constitutional: Reports: malaise, weakness HEENT: Reports: no symptoms Cardiovascular: Reports: no symptoms Respiratory: Reports: cough Gastrointestinal/Abdominal: Reports: no symptoms Genitourinary: Reports: no symptoms Neurologic/Psychiatric: Reports: pre-existing deficit, seizure Endocrine: Reports: no symptoms Hematologic/Lymphatic: Reports: no symptoms Allergies: Coded Allergies: PENICILLINS (Verified Allergy, Unknown, 02/04/18) SULFA (SULFONAMIDE ANTIBIOTICS) (Verified Allergy, Unknown, 02/04/18) SULFACETAMIDE (Unverified Allergy, Unknown, 06/24/18) All Systems: reviewed and negative except above Subjective no events. better overall. less congested. tolerating feeds, ecoli in urine. cxr improving. Objective Last 24 Hour Vital Signs Date Time Temp Pulse Resp B/P (MAP) Pulse Ox O2 Delivery O2 Flow Rate FiO2 06/27/18 08:54 71 173/87 06/27/18 08:53 71 173/87 06/27/18 08:22 74 18 Nasal Cannula 2.0 28 06/27/18 08:22 Nasal Cannula 2.0 06/27/18 04:00 98.0 98 20 152/76 (101) 100 98.0 06/27/18 00:00 98.6 73 18 156/86 (109) 100 98.6 06/26/18 21:50 68 163/94 06/26/18 21:49 68 163/94 06/26/18 21:00 Nasal Cannula 2.0 Nasal Cannula 2.0 06/26/18 20:34 Nasal Cannula 2.0 99 06/26/18 20:33 68 18 Nasal Cannula 2.0 28 06/26/18 20:00 97.9 76 20 163/94 (117) 100 97.9 06/26/18 18:23 178/93 06/26/18 16:00 98.8 79 24 178/93 (121) 100 98.8 06/26/18 12:00 98.0 71 19 142/86 (104) 100 98.0 06/26/18 09:14 69 18 Nasal Cannula 2.0 28 Intake and Output 06/26/18 06/27/18 19:00 07:00 Intake Total 400 ml 910 ml Balance 400 ml 910 ml Intake Free Water 360 ml Tube Feeding 400 ml 550 ml # Voids 4 4 # Bowel Movements 1 Laboratory Tests 06/26/18 15:15: Vancomycin Level Trough 5.1 06/27/18 07:30: Sodium Level 145, Potassium Level 3.8, Chloride Level 107, Carbon Dioxide Level 37H, Anion Gap 1L, Blood Urea Nitrogen 20H, Creatinine 0.6, Estimat Glomerular Filtration Rate , Glucose Level 161H, Calcium Level 9.0, Magnesium Level 2.0, Total Bilirubin 0.3, Aspartate Amino Transf (AST/SGOT) 22, Alanine Aminotransferase (ALT/SGPT) 19, Alkaline Phosphatase 112, Total Protein 6.7, Albumin 2.5L, Globulin 4.2, Albumin/Globulin Ratio 0.6L Height (Feet): 5 Height (Inches): 5.00 Weight (Pounds): 168 General Appearance: WD/WN, alert Neck: supple Cardiovascular: regular rhythm Respiratory/Chest: chest wall non-tender, lungs clear, normal breath sounds Abdomen: normal bowel sounds, non tender, soft, no organomegaly Edema: no edema noted Arm (L), no edema noted Arm (R), no edema noted Leg (L), no edema noted Leg (R), no edema noted Pedal (L), no edema noted Pedal (R), no edema noted Generalized Neurologic: disoriented, unresponsive, aphasia Michael Sprague MD Jun 27, 2018 08:59
--- NOTE | 2018-06-27 10:03 | Pulmonology Progress Note ---
Assessment/Plan Assessment/Plan IMPRESSION: hypoxemia, possible mucus plugging, pneumonia, pleural effusions, respiratory insufficiency, protein-calorie malnutrition, dementia, aspiration, G-tube, prior history of CVA. PLAN continue same for now keep negative and monitor imaging venous US negative antibiotics respiratory care monitoring for change aspiration precautions impression, plan, and exam edited and reviewed in detail care discussed with RN Subjective ROS Limited/Unobtainable: Yes Allergies: Coded Allergies: PENICILLINS (Verified Allergy, Unknown, 02/04/18) SULFA (SULFONAMIDE ANTIBIOTICS) (Verified Allergy, Unknown, 02/04/18) SULFACETAMIDE (Unverified Allergy, Unknown, 06/24/18) Subjective care noted no distress findings discussed Objective Last 24 Hour Vital Signs Date Time Temp Pulse Resp B/P (MAP) Pulse Ox O2 Delivery O2 Flow Rate FiO2 06/27/18 08:54 71 173/87 06/27/18 08:53 71 173/87 06/27/18 08:22 74 18 Nasal Cannula 2.0 28 06/27/18 08:22 Nasal Cannula 2.0 06/27/18 04:00 98.0 98 20 152/76 (101) 100 98.0 06/27/18 00:00 98.6 73 18 156/86 (109) 100 98.6 06/26/18 21:50 68 163/94 06/26/18 21:49 68 163/94 06/26/18 21:00 Nasal Cannula 2.0 Nasal Cannula 2.0 06/26/18 20:34 Nasal Cannula 2.0 99 06/26/18 20:33 68 18 Nasal Cannula 2.0 28 06/26/18 20:00 97.9 76 20 163/94 (117) 100 97.9 06/26/18 18:23 178/93 06/26/18 16:00 98.8 79 24 178/93 (121) 100 98.8 06/26/18 12:00 98.0 71 19 142/86 (104) 100 98.0 Intake and Output 06/26/18 06/27/18 19:00 07:00 Intake Total 400 ml 910 ml Balance 400 ml 910 ml Intake Free Water 360 ml Tube Feeding 400 ml 550 ml # Voids 4 4 # Bowel Movements 1 Objective GENERAL: A female who is chronically ill, advanced age. HEENT: Negative. Extraocular movements are grossly intact NECK: Supple. LUNGS: some rhonchi. Moderate air entry reduced in both bases. CARDIAC: S1 and S2. Regular rate and rhythm without murmurs, rubs, or gallops. ABDOMEN: Soft, nontender, nondistended. EXTREMITIES: No cyanosis or clubbing. Contractures noted overall. SKIN: Noted and reviewed. Microbiology Date/Time Source Procedure Growth Status 06/24/18 15:00 Blood Blood Culture - Preliminary NO GROWTH AFTER 48 HOURS Resulted 06/24/18 14:45 Blood Blood Culture - Preliminary Resulted 06/24/18 18:05 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 Complete 06/24/18 17:00 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 Complete 06/24/18 15:20 Urine,Clean Catch Urine Culture - Final Escherichia Coli Complete 06/24/18 18:05 Rectum - Final NO CARBAPENEM-RESISTANT ENTEROBACTERI... Complete 06/24/18 17:00 Rectum VRE Culture - Final NO VANCOMYCIN RESISTANT ENTEROCOCCUS ... Complete 06/24/18 17:00 Rectum - Final NO CARBAPENEM-RESISTANT ENTEROBACTERI... Complete Laboratory Tests 06/26/18 15:15: Vancomycin Level Trough 5.1 06/27/18 07:30: Sodium Level 145, Potassium Level 3.8, Chloride Level 107, Carbon Dioxide Level 37H, Anion Gap 1L, Blood Urea Nitrogen 20H, Creatinine 0.6, Estimat Glomerular Filtration Rate , Glucose Level 161H, Calcium Level 9.0, Magnesium Level 2.0, Total Bilirubin 0.3, Aspartate Amino Transf (AST/SGOT) 22, Alanine Aminotransferase (ALT/SGPT) 19, Alkaline Phosphatase 112, Total Protein 6.7, Albumin 2.5L, Globulin 4.2, Albumin/Globulin Ratio 0.6L Current Medications Medications (Trade) Dose Ordered Sig/Singh Route PRN Reason Start Time Stop Time Status Last Admin Dose Admin Albuterol/ Ipratropium (Albuterol/ Ipratropium) 3 ml Q4H PRN HHN Bronchospasm 06/24/18 19:00 06/29/18 18:59 Amlodipine Besylate (Norvasc) 5 mg EVERY 12 HOURS ORAL 06/24/18 21:00 07/24/18 20:59 06/27/18 08:53 Aspirin (ASA) 81 mg DAILY GT 06/25/18 09:00 07/25/18 08:59 06/27/18 08:53 Atorvastatin Calcium (Lipitor) 10 mg BEDTIME GT 06/24/18 21:00 07/24/18 20:59 06/26/18 21:50 Carvedilol (Coreg) 6.25 mg EVERY 12 HOURS GT 06/24/18 21:00 07/24/18 20:59 06/27/18 08:54 Cefepime HCl 1 gm/ Dextrose 55 ml @ 110 mls/hr Q24H IVPB 06/25/18 13:00 07/02/18 12:59 06/26/18 14:25 Chlorhexidine Gluconate (Azra-Hex 2%) 1 applic DAILY@2000 TOPIC 06/25/18 20:00 07/25/18 19:59 06/26/18 21:49 Clonidine HCl (Catapres Tab) 0.1 mg Q6H PRN ORAL For High Blood Pressure 06/24/18 19:00 07/24/18 18:59 06/26/18 18:23 Dextrose (Dextrose 50%) 25 ml STAT PRN IV Hypoglycemia 06/24/18 22:45 07/24/18 22:44 Dextrose (Dextrose 50%) 50 ml STAT PRN IV Hypoglycemia 06/24/18 22:45 07/24/18 22:44 Docusate Sodium (Colace) 100 mg DAILY ORAL 06/25/18 09:00 07/25/18 08:59 06/27/18 08:53 Heparin Sodium (Porcine) (Heparin 5000 units/ml) 5,000 units EVERY 12 HOURS SUBQ 06/25/18 09:00 07/25/18 08:59 06/27/18 08:55 Insulin Aspart (NovoLOG) Q6HR SUBQ 06/25/18 00:00 07/25/18 00:00 06/26/18 17:58 Levetiracetam (Keppra) 400 mg Q12HR GT 06/25/18 09:00 07/24/18 20:59 06/27/18 08:49 Pantoprazole (Protonix) 40 mg EVERY 12 HOURS IVP 06/24/18 21:00 07/24/18 20:59 06/27/18 08:50 Phenytoin (Dilantin) 125 mg Q12HR GT 06/25/18 09:00 07/24/18 20:59 06/27/18 08:50 Potassium Chloride (K-Dur) 20 meq DAILY GT 06/26/18 09:00 07/26/18 08:59 06/27/18 08:54 Navdeep Mcgowan MD Jun 27, 2018 10:03
--- NOTE | 2018-06-27 10:26 | Infectious Diseases Prog Note ---
Assessment/Plan Assessment/Plan A: 1. E. coli UTI. 2. Pneumonia. 3. Diabetes mellitus. 4. Hypertension. 5. Advanced dementia. 6. Altered mental status. 7.Bacteremia P; Continue Vancomycin & Cefepime Will f/u cultures Subjective ROS Limited/Unobtainable: Yes Allergies: Coded Allergies: PENICILLINS (Verified Allergy, Unknown, 02/04/18) SULFA (SULFONAMIDE ANTIBIOTICS) (Verified Allergy, Unknown, 02/04/18) SULFACETAMIDE (Unverified Allergy, Unknown, 06/24/18) Objective Vital Signs Last 24 Hour Vital Signs Date Time Temp Pulse Resp B/P (MAP) Pulse Ox O2 Delivery O2 Flow Rate FiO2 06/27/18 09:00 Nasal Cannula 2.0 Nasal Cannula 2.0 06/27/18 08:54 71 173/87 06/27/18 08:53 71 173/87 06/27/18 08:22 74 18 Nasal Cannula 2.0 28 06/27/18 08:22 Nasal Cannula 2.0 06/27/18 08:00 98.1 71 18 173/76 (108) 100 98.1 06/27/18 04:00 98.0 98 20 152/76 (101) 100 98.0 06/27/18 00:00 98.6 73 18 156/86 (109) 100 98.6 06/26/18 21:50 68 163/94 06/26/18 21:49 68 163/94 06/26/18 21:00 Nasal Cannula 2.0 Nasal Cannula 2.0 06/26/18 20:34 Nasal Cannula 2.0 99 06/26/18 20:33 68 18 Nasal Cannula 2.0 28 06/26/18 20:00 97.9 76 20 163/94 (117) 100 97.9 06/26/18 18:23 178/93 06/26/18 16:00 98.8 79 24 178/93 (121) 100 98.8 06/26/18 12:00 98.0 71 19 142/86 (104) 100 98.0 Height (Feet): 5 Height (Inches): 5.00 Weight (Pounds): 168 General Appearance: no acute distress HEENT: mucous membranes moist Respiratory/Chest: lungs clear Cardiovascular: normal rate, other - RIJ central line Abdomen: soft, non tender, other - GT feeding Extremities: no edema Neurologic/Psychiatric: aphasia Microbiology Date/Time Source Procedure Growth Status 06/24/18 15:00 Blood Blood Culture - Preliminary NO GROWTH AFTER 48 HOURS Resulted 06/24/18 14:45 Blood Blood Culture - Preliminary Resulted 06/24/18 18:05 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 Complete 06/24/18 17:00 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 Complete 06/24/18 15:20 Urine,Clean Catch Urine Culture - Final Escherichia Coli Complete 06/24/18 18:05 Rectum - Final NO CARBAPENEM-RESISTANT ENTEROBACTERI... Complete 06/24/18 17:00 Rectum VRE Culture - Final NO VANCOMYCIN RESISTANT ENTEROCOCCUS ... Complete 06/24/18 17:00 Rectum - Final NO CARBAPENEM-RESISTANT ENTEROBACTERI... Complete Laboratory Tests Test 06/26/18 15:15 06/27/18 07:30 Vancomycin Level Trough 5.1 ug/mL (5.0-12.0) Sodium Level 145 MMOL/L (136-145) Potassium Level 3.8 MMOL/L (3.5-5.1) Chloride Level 107 MMOL/L (98-107) Carbon Dioxide Level 37 MMOL/L (21-32) H Anion Gap 1 mmol/L (5-15) L Blood Urea Nitrogen 20 mg/dL (7-18) H Creatinine 0.6 MG/DL (0.55-1.30) Estimat Glomerular Filtration Rate mL/min (>60) Glucose Level 161 MG/DL (74-106) H Calcium Level 9.0 MG/DL (8.5-10.1) Magnesium Level 2.0 MG/DL (1.8-2.4) Total Bilirubin 0.3 MG/DL (0.2-1.0) Aspartate Amino Transf (AST/SGOT) 22 U/L (15-37) Alanine Aminotransferase (ALT/SGPT) 19 U/L (12-78) Alkaline Phosphatase 112 U/L (46-116) Total Protein 6.7 G/DL (6.4-8.2) Albumin 2.5 G/DL (3.4-5.0) L Globulin 4.2 g/dL Albumin/Globulin Ratio 0.6 (1.0-2.7) L Current Medications Medications (Trade) Dose Ordered Sig/Singh Route PRN Reason Start Time Stop Time Status Last Admin Dose Admin Albuterol/ Ipratropium (Albuterol/ Ipratropium) 3 ml Q4H PRN HHN Bronchospasm 06/24/18 19:00 06/29/18 18:59 Amlodipine Besylate (Norvasc) 5 mg EVERY 12 HOURS ORAL 06/24/18 21:00 07/24/18 20:59 06/27/18 08:53 Aspirin (ASA) 81 mg DAILY GT 06/25/18 09:00 07/25/18 08:59 06/27/18 08:53 Atorvastatin Calcium (Lipitor) 10 mg BEDTIME GT 06/24/18 21:00 07/24/18 20:59 06/26/18 21:50 Carvedilol (Coreg) 6.25 mg EVERY 12 HOURS GT 06/24/18 21:00 07/24/18 20:59 06/27/18 08:54 Cefepime HCl 1 gm/ Dextrose 55 ml @ 110 mls/hr Q24H IVPB 06/25/18 13:00 07/02/18 12:59 06/26/18 14:25 Chlorhexidine Gluconate (Azra-Hex 2%) 1 applic DAILY@2000 TOPIC 06/25/18 20:00 07/25/18 19:59 06/26/18 21:49 Clonidine HCl (Catapres Tab) 0.1 mg Q6H PRN ORAL For High Blood Pressure 06/24/18 19:00 07/24/18 18:59 06/26/18 18:23 Dextrose (Dextrose 50%) 25 ml STAT PRN IV Hypoglycemia 06/24/18 22:45 07/24/18 22:44 Dextrose (Dextrose 50%) 50 ml STAT PRN IV Hypoglycemia 06/24/18 22:45 07/24/18 22:44 Docusate Sodium (Colace) 100 mg DAILY ORAL 06/25/18 09:00 07/25/18 08:59 06/27/18 08:53 Heparin Sodium (Porcine) (Heparin 5000 units/ml) 5,000 units EVERY 12 HOURS SUBQ 06/25/18 09:00 07/25/18 08:59 06/27/18 08:55 Insulin Aspart (NovoLOG) Q6HR SUBQ 06/25/18 00:00 07/25/18 00:00 06/26/18 17:58 Levetiracetam (Keppra) 400 mg Q12HR GT 06/25/18 09:00 07/24/18 20:59 06/27/18 08:49 Pantoprazole (Protonix) 40 mg EVERY 12 HOURS IVP 06/24/18 21:00 07/24/18 20:59 06/27/18 08:50 Phenytoin (Dilantin) 125 mg Q12HR GT 06/25/18 09:00 07/24/18 20:59 06/27/18 08:50 Potassium Chloride (K-Dur) 20 meq DAILY GT 06/26/18 09:00 07/26/18 08:59 06/27/18 08:54 Gregory Albright MD Jun 27, 2018 10:26
[2018-06-27 12:00] VITALS: BP 150/81
[2018-06-27] MEDS: Cefepime HCl 1 GM in D5W 55 ML IVPB SCH (12:00)
[2018-06-27 16:00] VITALS: BP 168/88
[2018-06-27 20:00] VITALS: BP 162/95
[2018-06-27] MEDS: Dyna-Hex 2% Top Sol 2oz TOPIC SCH (20:24)
[2018-06-28] VITALS: BP 147/79
--- NOTE | 2018-06-28 03:15 | Progress Note ---
DATE: 06/27/2018 CARDIOLOGY PROGRESS NOTE SUBJECTIVE: Less congestion. Tolerating feedings, on antibiotics. Laboratory and radiographic findings even improved. OBJECTIVE: VITAL SIGNS: Blood pressure elevated up to 158/88, heart rate 77, respiratory rate 20, and afebrile, and T-max 99. LUNGS: Coarse breath sounds. Few rales. HEART: Regular rhythm and rate. Normal S1, S2. A 1/6 systolic murmur at apex. ABDOMEN: Soft, nontender. EXTREMITIES: Trace edema. LABORATORY AND DIAGNOSTIC DATA: Chemistry, sodium 145, potassium 3.8, bicarbonate 37, BUN 20, and creatinine 0.6. Magnesium 2.0. Albumin 2.5. Venous duplex scan negative for DVT. IMPRESSION: 1. Urinary tract infection. 2. Sepsis. 3. Acute on chronic diastolic congestive heart failure. 4. Dehydration and hypernatremia post diuresis. 5. Pleural effusion. 6. Hypoxia. 7. CVA with dysphagia and aphasia. 8. Hypertensive heart disease with labile blood pressure. PLAN: 1. Hold diuretics. 2. Advance antihypertensives. 3. Continue antimicrobials. 4. Respiratory hygiene. 5. DVT prophylaxis. Brayan Card M.D. DR: NGOC JOB#: [id number] CC:
[2018-06-28 04:00] VITALS: BP 159/82
[2018-06-28] MEDS: NovoLOG Insulin Flexpen SUBQ SCH ×4 (06:00→18:00)
[2018-06-28 07:34] LABS: BASOPHILS % (AUTO) 1.1 % (0.0-2.0); EOSINOPHILS % (AUTO) 2.3 % (0.0-3.0); HEMATOCRIT 35.9 % (37.0-47.0); HEMOGLOBIN 11.8 G/DL (12.0-16.0); LYMPHOCYTES % (AUTO) 17.8 % (20.0-45.0); MEAN CORPUSCULAR VOLUME 101 FL (80-99); MONOCYTES % (AUTO) 7.2 % (1.0-10.0); NEUTROPHILS % (AUTO) 71.5 % (45.0-75.0); PLATELET COUNT 157 K/UL (150-450); RED BLOOD COUNT 3.57 M/UL (4.20-5.40); RED CELL DISTRIBUTION WIDTH 12.9 % (11.6-14.8); WHITE BLOOD COUNT 6.7 K/UL (4.8-10.8)
[2018-06-28 08:00] VITALS: BP 160/89
[2018-06-28 08:12] LABS: ALANINE AMINOTRANSFERASE 16 U/L (12-78); ALBUMIN 2.6 G/DL (3.4-5.0); ALBUMIN/GLOBULIN RATIO 0.6 (1.0-2.7); ALKALINE PHOSPHATASE 120 U/L (46-116); ANION GAP 5 mmol/L (5-15); ASPARTATE AMINO TRANSFERASE 17 U/L (15-37); BILIRUBIN,TOTAL 0.3 MG/DL (0.2-1.0); BLOOD UREA NITROGEN 20 mg/dL (7-18); CALCIUM 9.1 MG/DL (8.5-10.1); CARBON DIOXIDE 32 MMOL/L (21-32); CHLORIDE 109 MMOL/L (98-107); CREATININE 0.5 MG/DL (0.55-1.30); POTASSIUM 3.7 MMOL/L (3.5-5.1); SODIUM 146 MMOL/L (136-145)
--- NOTE | 2018-06-28 08:15 | General Progress Note ---
Assessment/Plan Problem List: (1) Acute on chronic diastolic (congestive) heart failure ICD Codes: I50.33 - Acute on chronic diastolic (congestive) heart failure SNOMED: 68092758, 181862936 (2) Dyspnea ICD Codes: R06.00 - Dyspnea, unspecified SNOMED: 170327971 (3) Respiratory distress ICD Codes: R06.03 - Acute respiratory distress SNOMED: 111609234 (4) UTI (urinary tract infection) ICD Codes: N39.0 - Urinary tract infection, site not specified SNOMED: 94897920 Qualifiers: Qualified Codes: N39.0 - Urinary tract infection, site not specified (5) Hypoxia ICD Codes: R09.02 - Hypoxemia SNOMED: 589270135 (6) Pneumonia ICD Codes: J18.9 - Pneumonia, unspecified organism SNOMED: 271825819 Qualifiers: Qualified Codes: J18.9 - Pneumonia, unspecified organism Status: stable, progressing Assessment/Plan cont current rx abx resp rx o2 iv abx water flushes sz rx tube feeds dc planning Subjective ROS Limited/Unobtainable: Yes Constitutional: Reports: malaise, weakness HEENT: Reports: no symptoms Cardiovascular: Reports: no symptoms Respiratory: Reports: no symptoms Gastrointestinal/Abdominal: Reports: difficulty swallowing Genitourinary: Reports: no symptoms Neurologic/Psychiatric: Reports: pre-existing deficit, seizure Endocrine: Reports: no symptoms Hematologic/Lymphatic: Reports: anemia Allergies: Coded Allergies: PENICILLINS (Verified Allergy, Unknown, 02/04/18) SULFA (SULFONAMIDE ANTIBIOTICS) (Verified Allergy, Unknown, 02/04/18) SULFACETAMIDE (Unverified Allergy, Unknown, 06/24/18) All Systems: reviewed and negative except above Subjective per staff was moaning last night. given tylenol. on abx. tolerating feeds. Objective Last 24 Hour Vital Signs Date Time Temp Pulse Resp B/P (MAP) Pulse Ox O2 Delivery O2 Flow Rate FiO2 06/28/18 04:00 98.7 89 19 159/82 (107) 100 98.7 06/28/18 03:59 87 24 99 Nasal Cannula 2.0 28 06/28/18 03:55 78 24 97 Nasal Cannula 2.0 28 06/28/18 00:00 98.7 64 18 147/79 (101) 100 98.7 06/27/18 21:00 Nasal Cannula 2.0 Nasal Cannula 2.0 06/27/18 20:26 Nasal Cannula 2.0 06/27/18 20:25 118 140/98 06/27/18 20:25 118 140/98 06/27/18 20:25 79 20 Nasal Cannula 2.0 28 06/27/18 20:00 99.0 77 20 162/95 (117) 97 99.0 06/27/18 16:59 168/88 06/27/18 16:00 98.7 71 19 168/88 (114) 99 98.7 06/27/18 12:00 98.0 76 18 150/81 (104) 99 98.0 06/27/18 09:00 Nasal Cannula 2.0 Nasal Cannula 2.0 06/27/18 08:54 71 173/87 06/27/18 08:53 71 173/87 06/27/18 08:22 74 18 Nasal Cannula 2.0 28 06/27/18 08:22 Nasal Cannula 2.0 Intake and Output 06/27/18 06/28/18 19:00 07:00 Intake Total 550 ml 910 ml Balance 550 ml 910 ml Intake Free Water 200 ml 360 ml Tube Feeding 350 ml 550 ml # Bowel Movements 1 Laboratory Tests 06/28/18 06:00: White Blood Count 6.7, Red Blood Count 3.57L, Hemoglobin 11.8L, Hematocrit 35.9L , Mean Corpuscular Volume 101H, Mean Corpuscular Hemoglobin 33.0H, Mean Corpuscular Hemoglobin Concent 32.8, Red Cell Distribution Width 12.9, Platelet Count 157, Mean Platelet Volume 8.8, Neutrophils (%) (Auto) 71.5, Lymphocytes (% ) (Auto) 17.8L, Monocytes (%) (Auto) 7.2, Eosinophils (%) (Auto) 2.3, Basophils (%) (Auto) 1.1, Sodium Level 146H, Potassium Level 3.7, Chloride Level 109H, Carbon Dioxide Level 32, Anion Gap 5, Blood Urea Nitrogen 20H, Creatinine 0.5L, Estimat Glomerular Filtration Rate , Glucose Level 145H, Calcium Level 9.1, Total Bilirubin 0.3, Aspartate Amino Transf (AST/SGOT) 17, Alanine Aminotransferase (ALT/SGPT) 16, Alkaline Phosphatase 120H, Total Protein 6.9, Albumin 2.6L, Globulin 4.3, Albumin/Globulin Ratio 0.6L Height (Feet): 5 Height (Inches): 5.00 Weight (Pounds): 168 Objective General Appearance: WD/WN, alert Neck: supple Cardiovascular: regular rhythm Respiratory/Chest: chest wall non-tender, lungs clear, normal breath sounds Abdomen: normal bowel sounds, non tender, soft, no organomegaly Edema: no edema noted Arm (L), no edema noted Arm (R), no edema noted Leg (L), no edema noted Leg (R), no edema noted Pedal (L), no edema noted Pedal (R), no edema noted Generalized Neurologic: disoriented, unresponsive, aphasia Michael Sprague MD Jun 28, 2018 08:15
[2018-06-28] MEDS: Phenytoin Susp 100mg/4ml GT SCH ×2 (08:20→20:57)
[2018-06-28] MEDS: Docusate 100mg cap ORAL SCH (08:21)
[2018-06-28] MEDS: Aspirin Baby 81mg GT SCH (08:21)
[2018-06-28] MEDS: levETIRAcetam 500mg/5ml Liquid GT SCH ×2 (08:21→20:57)
[2018-06-28] MEDS: Pantoprazole Inj IVP SCH ×2 (08:23→20:58)
[2018-06-28] MEDS: Carvedilol 6.25mg Tab GT SCH ×2 (08:23→20:57)
[2018-06-28] MEDS: Heparin 5000 units/ml inj SUBQ SCH ×2 (08:28→20:59)
--- NOTE | 2018-06-28 08:36 | Pulmonology Progress Note ---
Assessment/Plan Assessment/Plan IMPRESSION: hypoxemia, possible mucus plugging, pneumonia, pleural effusions, respiratory insufficiency, protein-calorie malnutrition, dementia, aspiration, G-tube, prior history of CVA. PLAN keep negative and monitor imaging venous US negative antibiotics ?dc respiratory care as is oxygen as iis monitoring for change aspiration precautions dc planning impression, plan, and exam edited and reviewed in detail care discussed with RN Subjective ROS Limited/Unobtainable: Yes Allergies: Coded Allergies: PENICILLINS (Verified Allergy, Unknown, 02/04/18) SULFA (SULFONAMIDE ANTIBIOTICS) (Verified Allergy, Unknown, 02/04/18) SULFACETAMIDE (Unverified Allergy, Unknown, 06/24/18) Subjective care noted no distress findings discussed moaning Objective Last 24 Hour Vital Signs Date Time Temp Pulse Resp B/P (MAP) Pulse Ox O2 Delivery O2 Flow Rate FiO2 06/28/18 08:23 74 160/89 06/28/18 08:22 74 160/89 06/28/18 04:00 98.7 89 19 159/82 (107) 100 98.7 06/28/18 03:59 87 24 99 Nasal Cannula 2.0 28 06/28/18 03:55 78 24 97 Nasal Cannula 2.0 28 06/28/18 00:00 98.7 64 18 147/79 (101) 100 98.7 06/27/18 21:00 Nasal Cannula 2.0 Nasal Cannula 2.0 06/27/18 20:26 Nasal Cannula 2.0 06/27/18 20:25 118 140/98 06/27/18 20:25 118 140/98 06/27/18 20:25 79 20 Nasal Cannula 2.0 28 06/27/18 20:00 99.0 77 20 162/95 (117) 97 99.0 06/27/18 16:59 168/88 06/27/18 16:00 98.7 71 19 168/88 (114) 99 98.7 06/27/18 12:00 98.0 76 18 150/81 (104) 99 98.0 06/27/18 09:00 Nasal Cannula 2.0 Nasal Cannula 2.0 06/27/18 08:54 71 173/87 06/27/18 08:53 71 173/87 Intake and Output 06/27/18 06/28/18 19:00 07:00 Intake Total 550 ml 910 ml Balance 550 ml 910 ml Intake Free Water 200 ml 360 ml Tube Feeding 350 ml 550 ml # Bowel Movements 1 Objective GENERAL: A female who is chronically ill, advanced age. HEENT: Negative. Extraocular movements are grossly intact NECK: Supple. LUNGS: no rhonchi. Moderate air entry reduced in both bases. CARDIAC: S1 and S2. Regular rate and rhythm without murmurs, rubs, or gallops. ABDOMEN: Soft, nontender, nondistended. EXTREMITIES: No cyanosis or clubbing. Contractures noted overall. SKIN: Noted and reviewed. Laboratory Tests 06/28/18 06:00: White Blood Count 6.7, Red Blood Count 3.57L, Hemoglobin 11.8L, Hematocrit 35.9L , Mean Corpuscular Volume 101H, Mean Corpuscular Hemoglobin 33.0H, Mean Corpuscular Hemoglobin Concent 32.8, Red Cell Distribution Width 12.9, Platelet Count 157, Mean Platelet Volume 8.8, Neutrophils (%) (Auto) 71.5, Lymphocytes (% ) (Auto) 17.8L, Monocytes (%) (Auto) 7.2, Eosinophils (%) (Auto) 2.3, Basophils (%) (Auto) 1.1, Sodium Level 146H, Potassium Level 3.7, Chloride Level 109H, Carbon Dioxide Level 32, Anion Gap 5, Blood Urea Nitrogen 20H, Creatinine 0.5L, Estimat Glomerular Filtration Rate , Glucose Level 145H, Calcium Level 9.1, Total Bilirubin 0.3, Aspartate Amino Transf (AST/SGOT) 17, Alanine Aminotransferase (ALT/SGPT) 16, Alkaline Phosphatase 120H, Total Protein 6.9, Albumin 2.6L, Globulin 4.3, Albumin/Globulin Ratio 0.6L Current Medications Medications (Trade) Dose Ordered Sig/Singh Route PRN Reason Start Time Stop Time Status Last Admin Dose Admin Acetaminophen (Tylenol) 650 mg Q4H PRN ORAL Mild Pain/Temp > 100.5 06/28/18 06:30 07/28/18 06:29 06/28/18 06:27 Albuterol/ Ipratropium (Albuterol/ Ipratropium) 3 ml Q4H PRN HHN Bronchospasm 06/24/18 19:00 06/29/18 18:59 06/28/18 03:55 Amlodipine Besylate (Norvasc) 5 mg EVERY 12 HOURS ORAL 06/24/18 21:00 07/24/18 20:59 06/28/18 08:22 Aspirin (ASA) 81 mg DAILY GT 06/25/18 09:00 07/25/18 08:59 06/28/18 08:21 Atorvastatin Calcium (Lipitor) 10 mg BEDTIME GT 06/24/18 21:00 07/24/18 20:59 06/27/18 20:25 Carvedilol (Coreg) 12.5 mg EVERY 12 HOURS GT 06/28/18 09:00 07/28/18 08:59 06/28/18 08:23 Cefepime HCl 1 gm/ Dextrose 55 ml @ 110 mls/hr Q24H IVPB 06/25/18 13:00 07/02/18 12:59 06/27/18 12:00 Chlorhexidine Gluconate (Azra-Hex 2%) 1 applic DAILY@2000 TOPIC 06/25/18 20:00 07/25/18 19:59 06/27/18 20:24 Clonidine HCl (Catapres Tab) 0.1 mg Q6H PRN ORAL For High Blood Pressure 06/24/18 19:00 07/24/18 18:59 06/27/18 16:59 Dextrose (Dextrose 50%) 25 ml STAT PRN IV Hypoglycemia 06/24/18 22:45 07/24/18 22:44 Dextrose (Dextrose 50%) 50 ml STAT PRN IV Hypoglycemia 06/24/18 22:45 07/24/18 22:44 Docusate Sodium (Colace) 100 mg DAILY ORAL 06/25/18 09:00 07/25/18 08:59 06/28/18 08:21 Heparin Sodium (Porcine) (Heparin 5000 units/ml) 5,000 units EVERY 12 HOURS SUBQ 06/25/18 09:00 07/25/18 08:59 06/28/18 08:28 Insulin Aspart (NovoLOG) Q6HR SUBQ 06/25/18 00:00 07/25/18 00:00 06/26/18 17:58 Levetiracetam (Keppra) 400 mg Q12HR GT 06/25/18 09:00 07/24/18 20:59 06/28/18 08:21 Pantoprazole (Protonix) 40 mg EVERY 12 HOURS IVP 06/24/18 21:00 07/24/18 20:59 06/28/18 08:23 Phenytoin (Dilantin) 125 mg Q12HR GT 06/25/18 09:00 07/24/18 20:59 06/28/18 08:20 Potassium Chloride (K-Dur) 20 meq DAILY GT 06/26/18 09:00 07/26/18 08:59 06/28/18 08:21 Navdeep Mcgowan MD Jun 28, 2018 08:36
[2018-06-28 12:00] VITALS: BP 150/73
[2018-06-28] MEDS: Cefepime HCl 1 GM in D5W 55 ML IVPB SCH (12:15)
--- NOTE | 2018-06-28 12:43 | Infectious Diseases Prog Note ---
Assessment/Plan Assessment/Plan A: 1. E. coli UTI, treated 2. Pneumonia treated 3. Diabetes mellitus. 4. Hypertension. 5. Advanced dementia. 6. Altered mental status. 7.Positive blood culture, likely contamination P; discontinue Cefepime Subjective ROS Limited/Unobtainable: Yes Allergies: Coded Allergies: PENICILLINS (Verified Allergy, Unknown, 02/04/18) SULFA (SULFONAMIDE ANTIBIOTICS) (Verified Allergy, Unknown, 02/04/18) SULFACETAMIDE (Unverified Allergy, Unknown, 06/24/18) Objective Vital Signs Last 24 Hour Vital Signs Date Time Temp Pulse Resp B/P (MAP) Pulse Ox O2 Delivery O2 Flow Rate FiO2 06/28/18 12:00 98.3 64 18 150/73 (98) 100 98.3 06/28/18 09:00 Nasal Cannula 2.0 Nasal Cannula 2.0 06/28/18 08:23 74 160/89 06/28/18 08:22 74 160/89 06/28/18 08:00 99.2 74 19 160/89 (112) 98 99.2 06/28/18 04:00 98.7 89 19 159/82 (107) 100 98.7 06/28/18 03:59 87 24 99 Nasal Cannula 2.0 28 06/28/18 03:55 78 24 97 Nasal Cannula 2.0 28 06/28/18 00:00 98.7 64 18 147/79 (101) 100 98.7 06/27/18 21:00 Nasal Cannula 2.0 Nasal Cannula 2.0 06/27/18 20:26 Nasal Cannula 2.0 06/27/18 20:25 118 140/98 06/27/18 20:25 118 140/98 06/27/18 20:25 79 20 Nasal Cannula 2.0 28 06/27/18 20:00 99.0 77 20 162/95 (117) 97 99.0 06/27/18 16:59 168/88 06/27/18 16:00 98.7 71 19 168/88 (114) 99 98.7 Height (Feet): 5 Height (Inches): 5.00 Weight (Pounds): 168 General Appearance: no acute distress HEENT: mucous membranes moist Respiratory/Chest: lungs clear Cardiovascular: normal rate, other - RIJ centreal line Abdomen: soft, non tender, other Extremities: no edema Neurologic/Psychiatric: aphasia Laboratory Tests Test 06/28/18 06:00 White Blood Count 6.7 K/UL (4.8-10.8) Red Blood Count 3.57 M/UL (4.20-5.40) L Hemoglobin 11.8 G/DL (12.0-16.0) L Hematocrit 35.9 % (37.0-47.0) L Mean Corpuscular Volume 101 FL (80-99) H Mean Corpuscular Hemoglobin 33.0 PG (27.0-31.0) H Mean Corpuscular Hemoglobin Concent 32.8 G/DL (32.0-36.0) Red Cell Distribution Width 12.9 % (11.6-14.8) Platelet Count 157 K/UL (150-450) Mean Platelet Volume 8.8 FL (6.5-10.1) Neutrophils (%) (Auto) 71.5 % (45.0-75.0) Lymphocytes (%) (Auto) 17.8 % (20.0-45.0) L Monocytes (%) (Auto) 7.2 % (1.0-10.0) Eosinophils (%) (Auto) 2.3 % (0.0-3.0) Basophils (%) (Auto) 1.1 % (0.0-2.0) Sodium Level 146 MMOL/L (136-145) H Potassium Level 3.7 MMOL/L (3.5-5.1) Chloride Level 109 MMOL/L (98-107) H Carbon Dioxide Level 32 MMOL/L (21-32) Anion Gap 5 mmol/L (5-15) Blood Urea Nitrogen 20 mg/dL (7-18) H Creatinine 0.5 MG/DL (0.55-1.30) L Estimat Glomerular Filtration Rate mL/min (>60) Glucose Level 145 MG/DL (74-106) H Calcium Level 9.1 MG/DL (8.5-10.1) Total Bilirubin 0.3 MG/DL (0.2-1.0) Aspartate Amino Transf (AST/SGOT) 17 U/L (15-37) Alanine Aminotransferase (ALT/SGPT) 16 U/L (12-78) Alkaline Phosphatase 120 U/L (46-116) H Total Protein 6.9 G/DL (6.4-8.2) Albumin 2.6 G/DL (3.4-5.0) L Globulin 4.3 g/dL Albumin/Globulin Ratio 0.6 (1.0-2.7) L Current Medications Medications (Trade) Dose Ordered Sig/Singh Route PRN Reason Start Time Stop Time Status Last Admin Dose Admin Acetaminophen (Tylenol) 650 mg Q4H PRN ORAL Mild Pain/Temp > 100.5 06/28/18 06:30 07/28/18 06:29 06/28/18 06:27 Albuterol/ Ipratropium (Albuterol/ Ipratropium) 3 ml Q4H PRN HHN Bronchospasm 06/24/18 19:00 06/29/18 18:59 06/28/18 03:55 Amlodipine Besylate (Norvasc) 5 mg EVERY 12 HOURS ORAL 06/24/18 21:00 07/24/18 20:59 06/28/18 08:22 Aspirin (ASA) 81 mg DAILY GT 06/25/18 09:00 07/25/18 08:59 06/28/18 08:21 Atorvastatin Calcium (Lipitor) 10 mg BEDTIME GT 06/24/18 21:00 07/24/18 20:59 06/27/18 20:25 Carvedilol (Coreg) 12.5 mg EVERY 12 HOURS GT 06/28/18 09:00 07/28/18 08:59 06/28/18 08:23 Cefepime HCl 1 gm/ Dextrose 55 ml @ 110 mls/hr Q24H IVPB 06/25/18 13:00 07/02/18 12:59 06/28/18 12:15 Chlorhexidine Gluconate (Azra-Hex 2%) 1 applic DAILY@2000 TOPIC 06/25/18 20:00 07/25/18 19:59 06/27/18 20:24 Clonidine HCl (Catapres Tab) 0.1 mg Q6H PRN ORAL For High Blood Pressure 06/24/18 19:00 07/24/18 18:59 06/27/18 16:59 Dextrose (Dextrose 50%) 25 ml STAT PRN IV Hypoglycemia 06/24/18 22:45 07/24/18 22:44 Dextrose (Dextrose 50%) 50 ml STAT PRN IV Hypoglycemia 06/24/18 22:45 07/24/18 22:44 Docusate Sodium (Colace) 100 mg DAILY ORAL 06/25/18 09:00 07/25/18 08:59 06/28/18 08:21 Heparin Sodium (Porcine) (Heparin 5000 units/ml) 5,000 units EVERY 12 HOURS SUBQ 06/25/18 09:00 07/25/18 08:59 06/28/18 08:28 Insulin Aspart (NovoLOG) Q6HR SUBQ 06/25/18 00:00 07/25/18 00:00 06/26/18 17:58 Levetiracetam (Keppra) 400 mg Q12HR GT 06/25/18 09:00 07/24/18 20:59 06/28/18 08:21 Pantoprazole (Protonix) 40 mg EVERY 12 HOURS IVP 06/24/18 21:00 07/24/18 20:59 06/28/18 08:23 Phenytoin (Dilantin) 125 mg Q12HR GT 06/25/18 09:00 07/24/18 20:59 06/28/18 08:20 Potassium Chloride (K-Dur) 20 meq DAILY GT 06/26/18 09:00 07/26/18 08:59 06/28/18 08:21 Gregory Albright MD Jun 28, 2018 12:43
[2018-06-28 16:00] VITALS: BP 152/79
[2018-06-28 20:00] VITALS: BP 169/72
[2018-06-28] MEDS: Dyna-Hex 2% Top Sol 2oz TOPIC SCH (20:58)
--- NOTE | 2018-06-28 21:00 | Progress Note ---
DATE: 06/28/2018 CARDIOLOGY PROGRESS NOTE SUBJECTIVE: The patient apparently has some discomfort at times, response to Tylenol. No respiratory distress. OBJECTIVE: VITAL SIGNS: Blood pressure 169/82, pulse 89, respiratory 19 and afebrile. LUNGS: Coarse breath sounds. Few rhonchi. HEART: Regular rhythm rate. Normal S1 and S2 with a 1/6 systolic murmur at the base. ABDOMEN: Soft. There is no edema. LABORATORY AND DIAGNOSTIC DATA: White count 6.7 and hemoglobin 11.8. Sodium 146, potassium 3.7, chloride 109, bicarbonate 20, 0.5. Albumin 2.6. IMPRESSION: 1. Dehydration. 2. Hypernatremia. 3. Acute on chronic diastolic congestive heart failure, compensated. 4. Hypertensive heart disease with episodes still of labile blood pressure. 5. Insulin-requiring diabetes mellitus. 6. Seizure disorder. 7. Cerebrovascular disease with dementia. 8. Prerenal azotemia. 9. E. coli urinary tract infection. 10. Pneumonia, that was healthcare acquired. PLAN: 1. Free water replacement. 2. No diuresis at this time. 3. Respiratory hygiene. 4. Antibiotics per Infectious Disease consultants. 5. Titrate antihypertensives once free water deficit is corrected. Brayan Card M.D. DR: SHERWIN JOB#: [id number] CC:
[2018-06-29] VITALS: BP 135/71
[2018-06-29 04:00] VITALS: BP 149/76
[2018-06-29] MEDS: NovoLOG Insulin Flexpen SUBQ SCH ×5 (06:00→23:46)
[2018-06-29 08:00] VITALS: BP 167/99
--- NOTE | 2018-06-29 08:41 | General Progress Note ---
Assessment/Plan Problem List: (1) Acute on chronic diastolic (congestive) heart failure ICD Codes: I50.33 - Acute on chronic diastolic (congestive) heart failure SNOMED: 24204600, 006359907 (2) Dyspnea ICD Codes: R06.00 - Dyspnea, unspecified SNOMED: 966104723 (3) Respiratory distress ICD Codes: R06.03 - Acute respiratory distress SNOMED: 586528637 (4) UTI (urinary tract infection) ICD Codes: N39.0 - Urinary tract infection, site not specified SNOMED: 56164155 Qualifiers: Qualified Codes: N39.0 - Urinary tract infection, site not specified (5) Hypoxia ICD Codes: R09.02 - Hypoxemia SNOMED: 422785104 (6) Pneumonia ICD Codes: J18.9 - Pneumonia, unspecified organism SNOMED: 774664779 Qualifiers: Qualified Codes: J18.9 - Pneumonia, unspecified organism Status: stable Assessment/Plan cont current rx abx completed resp rx o2 check cxr and labs water flushes sz rx tube feeds dc planning today if labs/cxr ok Subjective ROS Limited/Unobtainable: Yes Constitutional: Reports: malaise, weakness HEENT: Reports: no symptoms Cardiovascular: Reports: no symptoms Respiratory: Reports: cough, shortness of breath Gastrointestinal/Abdominal: Reports: difficulty swallowing Genitourinary: Reports: no symptoms Neurologic/Psychiatric: Reports: pre-existing deficit, seizure Endocrine: Reports: no symptoms Hematologic/Lymphatic: Reports: anemia Allergies: Coded Allergies: PENICILLINS (Verified Allergy, Unknown, 02/04/18) SULFA (SULFONAMIDE ANTIBIOTICS) (Verified Allergy, Unknown, 02/04/18) SULFACETAMIDE (Unverified Allergy, Unknown, 06/24/18) All Systems: reviewed and negative except above Subjective no events, remains on o2. mild congestion.on iv abx. no fever or chills. Objective Last 24 Hour Vital Signs Date Time Temp Pulse Resp B/P (MAP) Pulse Ox O2 Delivery O2 Flow Rate FiO2 06/29/18 04:00 97.7 58 19 149/76 (100) 100 97.7 06/29/18 00:00 97.3 59 20 135/71 (92) 100 97.3 06/28/18 21:00 Nasal Cannula 2.0 Nasal Cannula 2.0 06/28/18 20:57 67 169/72 06/28/18 20:57 67 169/72 06/28/18 20:00 98.1 67 20 169/72 (104) 100 98.1 06/28/18 19:07 82 20 Nasal Cannula 2.0 28 06/28/18 19:07 Nasal Cannula 2.0 28 06/28/18 18:45 98.8 06/28/18 16:00 98.8 68 18 152/79 (103) 100 98.8 06/28/18 12:00 98.3 64 18 150/73 (98) 100 98.3 06/28/18 09:00 Nasal Cannula 2.0 Nasal Cannula 2.0 Intake and Output 06/28/18 06/29/18 19:00 07:00 Intake Total 500 ml 850 ml Balance 500 ml 850 ml Intake Free Water 200 ml 300 ml Tube Feeding 300 ml 550 ml # Voids 2 # Bowel Movements 1 Height (Feet): 5 Height (Inches): 5.00 Weight (Pounds): 168 Objective General Appearance: WD/WN, alert Neck: supple Cardiovascular: regular rhythm Respiratory/Chest: chest wall non-tender, lungs clear, normal breath sounds Abdomen: normal bowel sounds, non tender, soft, no organomegaly Edema: no edema noted Arm (L), no edema noted Arm (R), no edema noted Leg (L), no edema noted Leg (R), no edema noted Pedal (L), no edema noted Pedal (R), no edema noted Generalized Neurologic: disoriented, unresponsive, aphasia Michael Sprague MD Jun 29, 2018 08:40
[2018-06-29] MEDS: Aspirin Baby 81mg GT SCH (09:32)
[2018-06-29] MEDS: Carvedilol 6.25mg Tab GT SCH ×2 (09:32→21:06)
[2018-06-29] MEDS: Phenytoin Susp 100mg/4ml GT SCH ×2 (09:32→21:06)
[2018-06-29] MEDS: levETIRAcetam 500mg/5ml Liquid GT SCH ×2 (09:32→21:07)
[2018-06-29] MEDS: Docusate 100mg cap ORAL SCH (09:32)
[2018-06-29] MEDS: Pantoprazole Inj IVP SCH ×2 (09:33→21:04)
[2018-06-29] MEDS: Heparin 5000 units/ml inj SUBQ SCH ×2 (09:36→21:04)
[2018-06-29 10:08] LABS: BASOPHILS % (AUTO) 0.6 % (0.0-2.0); EOSINOPHILS % (AUTO) 3.1 % (0.0-3.0); HEMATOCRIT 36.7 % (37.0-47.0); HEMOGLOBIN 11.7 G/DL (12.0-16.0); LYMPHOCYTES % (AUTO) 19.7 % (20.0-45.0); MEAN CORPUSCULAR VOLUME 102 FL (80-99); MONOCYTES % (AUTO) 9.1 % (1.0-10.0); NEUTROPHILS % (AUTO) 67.5 % (45.0-75.0); PLATELET COUNT 157 K/UL (150-450); RED BLOOD COUNT 3.62 M/UL (4.20-5.40); RED CELL DISTRIBUTION WIDTH 13.1 % (11.6-14.8); WHITE BLOOD COUNT 6.5 K/UL (4.8-10.8)
--- NOTE | 2018-06-29 10:20 | Infectious Diseases Prog Note ---
"Assessment/Plan Assessment/Plan antibiotics : none A 1. e.coli UTI s/p rx 2. aerococcus | staph bacteremia s/p rx 3. diabetes mellitus 4. hypertension 5. dementia 6. pneumonia s/p rx P 1. continue off antibiotics Subjective ROS Limited/Unobtainable: Yes Allergies: Coded Allergies: PENICILLINS (Verified Allergy, Unknown, 02/04/18) SULFA (SULFONAMIDE ANTIBIOTICS) (Verified Allergy, Unknown, 02/04/18) SULFACETAMIDE (Unverified Allergy, Unknown, 06/24/18) Objective Vital Signs Last 24 Hour Vital Signs Date Time Temp Pulse Resp B/P (MAP) Pulse Ox O2 Delivery O2 Flow Rate FiO2 06/29/18 09:32 70 167/99 06/29/18 09:32 70 167/99 06/29/18 09:04 Nasal Cannula 2.0 28 06/29/18 09:04 60 20 Nasal Cannula 2.0 28 06/29/18 08:00 97.5 70 18 167/99 (121) 100 97.5 06/29/18 04:00 97.7 58 19 149/76 (100) 100 97.7 06/29/18 00:00 97.3 59 20 135/71 (92) 100 97.3 06/28/18 21:00 Nasal Cannula 2.0 Nasal Cannula 2.0 06/28/18 20:57 67 169/72 06/28/18 20:57 67 169/72 06/28/18 20:00 98.1 67 20 169/72 (104) 100 98.1 06/28/18 19:07 82 20 Nasal Cannula 2.0 28 06/28/18 19:07 Nasal Cannula 2.0 28 06/28/18 18:45 98.8 06/28/18 16:00 98.8 68 18 152/79 (103) 100 98.8 06/28/18 12:00 98.3 64 18 150/73 (98) 100 98.3 Height (Feet): 5 Height (Inches): 5.00 Weight (Pounds): 168 Respiratory/Chest: lungs clear Cardiovascular: normal rate, regular rhythm, no gallop/murmur Abdomen: soft, non tender, other - GT Extremities: no edema, other - right IJ Laboratory Tests Test 06/29/18 09:35 White Blood Count Pending Red Blood Count Pending Hemoglobin Pending Hematocrit Pending Mean Corpuscular Volume Pending Mean Corpuscular Hemoglobin Pending Mean Corpuscular Hemoglobin Concent Pending Red Cell Distribution Width Pending Platelet Count Pending Mean Platelet Volume Pending Neutrophils (%) (Auto) Pending Lymphocytes (%) (Auto) Pending Monocytes (%) (Auto) Pending Eosinophils (%) (Auto) Pending Basophils (%) (Auto) Pending Sodium Level Pending Potassium Level Pending Chloride Level Pending Carbon Dioxide Level Pending Blood Urea Nitrogen Pending Creatinine Pending Estimat Glomerular Filtration Rate Pending Glucose Level Pending Calcium Level Pending Total Bilirubin Pending Aspartate Amino Transf (AST/SGOT) Pending Alanine Aminotransferase (ALT/SGPT) Pending Alkaline Phosphatase Pending Total Protein Pending Albumin Pending Globulin Pending Current Medications Medications (Trade) Dose Ordered Sig/Singh Route PRN Reason Start Time Stop Time Status Last Admin Dose Admin Acetaminophen (Tylenol) 650 mg Q4H PRN ORAL Mild Pain/Temp > 100.5 06/28/18 06:30 07/28/18 06:29 06/29/18 04:53 Albuterol/ Ipratropium (Albuterol/ Ipratropium) 3 ml Q4H PRN HHN Bronchospasm 06/24/18 19:00 06/29/18 18:59 06/28/18 03:55 Amlodipine Besylate (Norvasc) 5 mg EVERY 12 HOURS ORAL 06/24/18 21:00 07/24/18 20:59 06/29/18 09:32 Aspirin (ASA) 81 mg DAILY GT 06/25/18 09:00 07/25/18 08:59 06/29/18 09:32 Atorvastatin Calcium (Lipitor) 10 mg BEDTIME GT 06/24/18 21:00 07/24/18 20:59 06/28/18 20:57 Carvedilol (Coreg) 12.5 mg EVERY 12 HOURS GT 06/28/18 09:00 07/28/18 08:59 06/29/18 09:32 Chlorhexidine Gluconate (Azra-Hex 2%) 1 applic DAILY@1999 TOPIC 06/25/18 20:00 07/25/18 19:59 06/28/18 20:58 Clonidine HCl (Catapres Tab) 0.1 mg Q6H PRN ORAL For High Blood Pressure 06/24/18 19:00 07/24/18 18:59 06/27/18 16:59 Dextrose (Dextrose 50%) 25 ml STAT PRN IV Hypoglycemia 06/24/18 22:45 07/24/18 22:44 Dextrose (Dextrose 50%) 50 ml STAT PRN IV Hypoglycemia 06/24/18 22:45 07/24/18 22:44 Docusate Sodium (Colace) 100 mg DAILY ORAL 06/25/18 09:00 07/25/18 08:59 06/29/18 09:32 Heparin Sodium (Porcine) (Heparin 5000 units/ml) 5,000 units EVERY 12 HOURS SUBQ 06/25/18 09:00 07/25/18 08:59 06/29/18 09:36 Insulin Aspart (NovoLOG) Q6HR SUBQ 06/25/18 00:00 07/25/18 00:00 06/26/18 17:58 Levetiracetam (Keppra) 400 mg Q12HR GT 06/25/18 09:00 07/24/18 20:59 06/29/18 09:32 Pantoprazole (Protonix) 40 mg EVERY 12 HOURS IVP 06/24/18 21:00 07/24/18 20:59 06/29/18 09:33 Phenytoin (Dilantin) 125 mg Q12HR GT 06/25/18 09:00 07/24/18 20:59 06/29/18 09:32 Potassium Chloride (K-Dur) 20 meq DAILY GT 06/26/18 09:00 07/26/18 08:59 06/29/18 09:33 RAMY BELLA Jun 29, 2018 10:20"
[2018-06-29 10:35] LABS: ALANINE AMINOTRANSFERASE 18 U/L (12-78); ALBUMIN 2.6 G/DL (3.4-5.0); ALBUMIN/GLOBULIN RATIO 0.6 (1.0-2.7); ALKALINE PHOSPHATASE 116 U/L (46-116); ANION GAP 2 mmol/L (5-15); ASPARTATE AMINO TRANSFERASE 18 U/L (15-37); BILIRUBIN,TOTAL 0.3 MG/DL (0.2-1.0); BLOOD UREA NITROGEN 21 mg/dL (7-18); CALCIUM 9.1 MG/DL (8.5-10.1); CARBON DIOXIDE 34 MMOL/L (21-32); CHLORIDE 109 MMOL/L (98-107); CREATININE 0.6 MG/DL (0.55-1.30); POTASSIUM 4.6 MMOL/L (3.5-5.1); SODIUM 145 MMOL/L (136-145)
[2018-06-29 12:00] VITALS: BP 163/73
--- NOTE | 2018-06-29 12:21 | Pulmonology Progress Note ---
Assessment/Plan Assessment/Plan IMPRESSION: hypoxemia, possible mucus plugging, pneumonia, pleural effusions, respiratory insufficiency, protein-calorie malnutrition, dementia, aspiration, G-tube, prior history of CVA. PLAN keep negative and monitor imaging venous US negative respiratory care as is oxygen as iis monitoring for change aspiration precautions dc planning ok with pulmonary impression, plan, and exam edited and reviewed in detail care discussed with RN Subjective ROS Limited/Unobtainable: Yes Allergies: Coded Allergies: PENICILLINS (Verified Allergy, Unknown, 02/04/18) SULFA (SULFONAMIDE ANTIBIOTICS) (Verified Allergy, Unknown, 02/04/18) SULFACETAMIDE (Unverified Allergy, Unknown, 06/24/18) Subjective care noted no distress when seen findings discussed Objective Last 24 Hour Vital Signs Date Time Temp Pulse Resp B/P (MAP) Pulse Ox O2 Delivery O2 Flow Rate FiO2 06/29/18 09:32 70 167/99 06/29/18 09:32 70 167/99 06/29/18 09:04 Nasal Cannula 2.0 28 06/29/18 09:04 60 20 Nasal Cannula 2.0 28 06/29/18 09:00 Nasal Cannula 2.0 Nasal Cannula 2.0 06/29/18 08:00 97.5 70 18 167/99 (121) 100 97.5 06/29/18 04:00 97.7 58 19 149/76 (100) 100 97.7 06/29/18 00:00 97.3 59 20 135/71 (92) 100 97.3 06/28/18 21:00 Nasal Cannula 2.0 Nasal Cannula 2.0 06/28/18 20:57 67 169/72 06/28/18 20:57 67 169/72 06/28/18 20:00 98.1 67 20 169/72 (104) 100 98.1 06/28/18 19:07 82 20 Nasal Cannula 2.0 28 06/28/18 19:07 Nasal Cannula 2.0 28 06/28/18 18:45 98.8 06/28/18 16:00 98.8 68 18 152/79 (103) 100 98.8 Intake and Output 06/28/18 06/29/18 19:00 07:00 Intake Total 500 ml 850 ml Balance 500 ml 850 ml Intake Free Water 200 ml 300 ml Tube Feeding 300 ml 550 ml # Voids 2 # Bowel Movements 1 Objective GENERAL: A female who is chronically ill, advanced age. NAD HEENT: Negative. NECK: Supple. LUNGS: no rhonchi. Moderate air entry reduced in both bases. CARDIAC: S1 and S2. Regular rate and rhythm without murmurs, rubs, or gallops. ABDOMEN: Soft, nontender, nondistended. EXTREMITIES: No cyanosis or clubbing. Contractures noted overall. SKIN: Noted and reviewed. Laboratory Tests 06/29/18 09:35: White Blood Count 6.5, Red Blood Count 3.62L, Hemoglobin 11.7L, Hematocrit 36.7L , Mean Corpuscular Volume 102H, Mean Corpuscular Hemoglobin 32.4H, Mean Corpuscular Hemoglobin Concent 31.9L, Red Cell Distribution Width 13.1, Platelet Count 157, Mean Platelet Volume 9.4, Neutrophils (%) (Auto) 67.5, Lymphocytes (%) (Auto) 19.7L, Monocytes (%) (Auto) 9.1, Eosinophils (%) (Auto) 3.1H, Basophils (%) (Auto) 0.6, Sodium Level 145, Potassium Level 4.6, Chloride Level 109H, Carbon Dioxide Level 34H, Anion Gap 2L, Blood Urea Nitrogen 21H, Creatinine 0.6, Estimat Glomerular Filtration Rate , Glucose Level 154H, Calcium Level 9.1, Total Bilirubin 0.3, Aspartate Amino Transf (AST/SGOT) 18, Alanine Aminotransferase (ALT/SGPT) 18, Alkaline Phosphatase 116, Total Protein 6.8, Albumin 2.6L, Globulin 4.2, Albumin/Globulin Ratio 0.6L Current Medications Medications (Trade) Dose Ordered Sig/Singh Route PRN Reason Start Time Stop Time Status Last Admin Dose Admin Acetaminophen (Tylenol) 650 mg Q4H PRN ORAL Mild Pain/Temp > 100.5 06/28/18 06:30 07/28/18 06:29 06/29/18 10:45 Albuterol/ Ipratropium (Albuterol/ Ipratropium) 3 ml Q4H PRN HHN Bronchospasm 06/24/18 19:00 06/29/18 18:59 06/28/18 03:55 Amlodipine Besylate (Norvasc) 5 mg EVERY 12 HOURS ORAL 06/24/18 21:00 9/28/18 20:59 06/29/18 09:32 Aspirin (ASA) 81 mg DAILY GT 06/25/18 09:00 07/25/18 08:59 06/29/18 09:32 Atorvastatin Calcium (Lipitor) 10 mg BEDTIME GT 06/24/18 21:00 07/24/18 20:59 06/28/18 20:57 Carvedilol (Coreg) 12.5 mg EVERY 12 HOURS GT 06/28/18 09:00 07/28/18 08:59 06/29/18 09:32 Chlorhexidine Gluconate (Azra-Hex 2%) 1 applic DAILY@2000 TOPIC 06/25/18 20:00 07/25/18 19:59 06/28/18 20:58 Clonidine HCl (Catapres Tab) 0.1 mg Q6H PRN ORAL For High Blood Pressure 06/24/18 19:00 07/24/18 18:59 06/27/18 16:59 Dextrose (Dextrose 50%) 25 ml STAT PRN IV Hypoglycemia 06/24/18 22:45 07/24/18 22:44 Dextrose (Dextrose 50%) 50 ml STAT PRN IV Hypoglycemia 06/24/18 22:45 07/24/18 22:44 Docusate Sodium (Colace) 100 mg DAILY ORAL 06/25/18 09:00 07/25/18 08:59 06/29/18 09:32 Heparin Sodium (Porcine) (Heparin 5000 units/ml) 5,000 units EVERY 12 HOURS SUBQ 06/25/18 09:00 07/25/18 08:59 06/29/18 09:36 Insulin Aspart (NovoLOG) Q6HR SUBQ 06/25/18 00:00 07/25/18 00:00 06/26/18 17:58 Levetiracetam (Keppra) 400 mg Q12HR GT 06/25/18 09:00 07/24/18 20:59 06/29/18 09:32 Pantoprazole (Protonix) 40 mg EVERY 12 HOURS IVP 06/24/18 21:00 07/24/18 20:59 06/29/18 09:33 Phenytoin (Dilantin) 125 mg Q12HR GT 06/25/18 09:00 07/24/18 20:59 06/29/18 09:32 Potassium Chloride (K-Dur) 20 meq DAILY GT 06/26/18 09:00 07/26/18 08:59 06/29/18 09:33 Navdeep Mcgowan MD Jun 29, 2018 12:20
[2018-06-29 16:00] VITALS: BP 157/73
[2018-06-29 20:00] VITALS: BP 160/88
[2018-06-29] MEDS: Dyna-Hex 2% Top Sol 2oz TOPIC SCH (21:04)
[2018-06-30] VITALS (7 sets, daily range): BP systolic 140–175; BP diastolic 69–96
--- NOTE | 2018-06-30 01:30 | Progress Note ---
DATE: 06/29/2018 CARDIOLOGY PROGRESS NOTE SUBJECTIVE: The patient remains on oxygen supplementation, IV antibiotics, and respiratory therapy with mild congestion persisting. She continues on water flushes by G-tube. She has been afebrile. OBJECTIVE: VITAL SIGNS: Blood pressure 135/71, pulse 59, respiratory rate 20, and afebrile. LUNGS: Coarse breath sounds. Few rhonchi. HEART: Regular rhythm and rate. Normal S1, S2. A 1/6 systolic murmur at apex. ABDOMEN: Soft, no edema. LABORATORY AND DIAGNOSTIC DATA: White count 6.5, hemoglobin 11.7, sodium 145, potassium 4.6, bicarbonate 34, BUN 21 creatinine 0.6, and albumin 2.6. IMPRESSION: 1. Healthcare-acquired pneumonia. 2. Aspiration. 3. Hypoxia. 4. Pleural effusions. 5. Acute on chronic diastolic congestive heart failure. 6. Dehydration. 7. Hypernatremia. 8. Free water deficit. 9. Cerebrovascular disease with dementia. 10. Dysphagia, NG-tube. 11. Hypertensive heart disease with labile blood pressure at times. 12. Sinus bradycardia, on beta-blockers. PLAN: 1. Titrate antihypertensives. 2. Avoid additional beta blockade. 3. Hold diuresis. 4. Continue free water replacement, antimicrobials, and respiratory hygiene. Marva William JOB#: [id number] CC:
[2018-06-30] MEDS: NovoLOG Insulin Flexpen SUBQ SCH ×4 (06:00→23:44)
--- NOTE | 2018-06-30 09:06 | Pulmonology Progress Note ---
Assessment/Plan Assessment/Plan IMPRESSION: hypoxemia, possible mucus plugging, pneumonia, pleural effusions, respiratory insufficiency, protein-calorie malnutrition, dementia, aspiration, G-tube, prior history of CVA. PLAN keep negative and monitor imaging respiratory care as is; no change needed oxygen as iis monitoring for change aspiration precautions dc planning ok with pulmonary at present impression, plan, and exam edited and reviewed in detail care discussed with RN Subjective ROS Limited/Unobtainable: Yes Allergies: Coded Allergies: PENICILLINS (Verified Allergy, Unknown, 02/04/18) SULFA (SULFONAMIDE ANTIBIOTICS) (Verified Allergy, Unknown, 02/04/18) SULFACETAMIDE (Unverified Allergy, Unknown, 06/24/18) Subjective care noted no distress when seen findings discussed Objective Last 24 Hour Vital Signs Date Time Temp Pulse Resp B/P (MAP) Pulse Ox O2 Delivery O2 Flow Rate FiO2 06/30/18 04:00 97.8 61 18 146/69 (94) 100 97.8 06/30/18 00:00 97.5 60 19 140/73 (95) 100 97.5 06/29/18 21:29 Nasal Cannula 2.0 28 06/29/18 21:27 98 20 Nasal Cannula 2.0 28 06/29/18 21:07 68 160/88 06/29/18 21:06 68 160/88 06/29/18 21:00 Nasal Cannula 2.0 Nasal Cannula 2.0 06/29/18 20:00 97.5 68 19 160/88 (112) 100 97.5 06/29/18 16:00 97.8 64 20 157/73 (101) 100 97.8 06/29/18 12:35 163/73 06/29/18 12:00 97.9 66 18 163/73 (103) 99 97.9 06/29/18 09:32 70 167/99 06/29/18 09:32 70 167/99 Intake and Output 06/29/18 06/30/18 19:00 07:00 Intake Total 700 ml 850 ml Balance 700 ml 850 ml Intake Free Water 300 ml 300 ml Tube Feeding 400 ml 550 ml Objective GENERAL: A female who is chronically ill, advanced age. NAD HEENT: Negative. NECK: Supple. LUNGS: no rhonchi. Moderate air entry reduced in both bases. same CARDIAC: S1 and S2. Regular rate and rhythm without murmurs, rubs, or gallops. ABDOMEN: Soft, nontender, nondistended. EXTREMITIES: No cyanosis or clubbing. Contractures noted overall. SKIN: Noted and reviewed. Laboratory Tests 06/29/18 09:35: White Blood Count 6.5, Red Blood Count 3.62L, Hemoglobin 11.7L, Hematocrit 36.7L , Mean Corpuscular Volume 102H, Mean Corpuscular Hemoglobin 32.4H, Mean Corpuscular Hemoglobin Concent 31.9L, Red Cell Distribution Width 13.1, Platelet Count 157, Mean Platelet Volume 9.4, Neutrophils (%) (Auto) 67.5, Lymphocytes (%) (Auto) 19.7L, Monocytes (%) (Auto) 9.1, Eosinophils (%) (Auto) 3.1H, Basophils (%) (Auto) 0.6, Sodium Level 145, Potassium Level 4.6, Chloride Level 109H, Carbon Dioxide Level 34H, Anion Gap 2L, Blood Urea Nitrogen 21H, Creatinine 0.6, Estimat Glomerular Filtration Rate , Glucose Level 154H, Calcium Level 9.1, Total Bilirubin 0.3, Aspartate Amino Transf (AST/SGOT) 18, Alanine Aminotransferase (ALT/SGPT) 18, Alkaline Phosphatase 116, Total Protein 6.8, Albumin 2.6L, Globulin 4.2, Albumin/Globulin Ratio 0.6L Current Medications Medications (Trade) Dose Ordered Sig/Singh Route PRN Reason Start Time Stop Time Status Last Admin Dose Admin Acetaminophen (Tylenol) 650 mg Q4H PRN ORAL Mild Pain/Temp > 100.5 06/28/18 06:30 07/28/18 06:29 06/30/18 06:00 Amlodipine Besylate (Norvasc) 5 mg EVERY 12 HOURS ORAL 06/24/18 21:00 07/24/18 20:59 06/29/18 21:07 Aspirin (ASA) 81 mg DAILY GT 06/25/18 09:00 07/25/18 08:59 06/29/18 09:32 Atorvastatin Calcium (Lipitor) 10 mg BEDTIME GT 06/24/18 21:00 07/24/18 20:59 06/29/18 21:04 Carvedilol (Coreg) 12.5 mg EVERY 12 HOURS GT 06/28/18 09:00 07/28/18 08:59 06/29/18 21:06 Chlorhexidine Gluconate (Azra-Hex 2%) 1 applic DAILY@2000 TOPIC 06/25/18 20:00 07/25/18 19:59 06/29/18 21:04 Clonidine HCl (Catapres Tab) 0.1 mg Q6H PRN ORAL For High Blood Pressure 06/24/18 19:00 07/24/18 18:59 06/29/18 12:35 Dextrose (Dextrose 50%) 25 ml STAT PRN IV Hypoglycemia 06/24/18 22:45 07/24/18 22:44 Dextrose (Dextrose 50%) 50 ml STAT PRN IV Hypoglycemia 06/24/18 22:45 07/24/18 22:44 Docusate Sodium (Colace) 100 mg DAILY ORAL 06/25/18 09:00 07/25/18 08:59 06/29/18 09:32 Heparin Sodium (Porcine) (Heparin 5000 units/ml) 5,000 units EVERY 12 HOURS SUBQ 06/25/18 09:00 07/25/18 08:59 06/29/18 21:04 Insulin Aspart (NovoLOG) Q6HR SUBQ 06/25/18 00:00 07/25/18 00:00 06/26/18 17:58 Levetiracetam (Keppra) 400 mg Q12HR GT 06/25/18 09:00 07/24/18 20:59 06/29/18 21:07 Pantoprazole (Protonix) 40 mg EVERY 12 HOURS IVP 06/24/18 21:00 07/24/18 20:59 06/29/18 21:04 Phenytoin (Dilantin) 125 mg Q12HR GT 06/25/18 09:00 07/24/18 20:59 06/29/18 21:06 Navdeep Mcgowan MD Jun 30, 2018 09:06
[2018-06-30] MEDS: Docusate 100mg cap ORAL SCH (09:17)
[2018-06-30] MEDS: Carvedilol 6.25mg Tab GT SCH ×2 (09:17→20:51)
[2018-06-30] MEDS: Aspirin Baby 81mg GT SCH (09:17)
[2018-06-30] MEDS: levETIRAcetam 500mg/5ml Liquid GT SCH ×2 (09:18→20:52)
[2018-06-30] MEDS: Pantoprazole Inj IVP SCH ×2 (09:18→20:50)
[2018-06-30] MEDS: Phenytoin Susp 100mg/4ml GT SCH ×2 (09:18→20:53)
[2018-06-30] MEDS: Heparin 5000 units/ml inj SUBQ SCH ×2 (09:20→20:54)
--- NOTE | 2018-06-30 10:14 | Diagnostic Imaging Report ---
Indication: Cough Technique: One view of the chest Comparison: 06/26/2018 Findings: The heart is enlarged. There is bilateral interstitial and airspace edema. There are probably bilateral pleural effusions. Findings are unchanged Impression: Unchanged, over 3 days, findings as above.
[2018-06-30 10:24] LABS: BASOPHILS % (AUTO) 0.5 % (0.0-2.0); EOSINOPHILS % (AUTO) 2.6 % (0.0-3.0); HEMATOCRIT 37.4 % (37.0-47.0); HEMOGLOBIN 11.9 G/DL (12.0-16.0); LYMPHOCYTES % (AUTO) 18.4 % (20.0-45.0); MEAN CORPUSCULAR VOLUME 101 FL (80-99); NEUTROPHILS % (AUTO) 72.5 % (45.0-75.0); PLATELET COUNT 179 K/UL (150-450); RED BLOOD COUNT 3.69 M/UL (4.20-5.40); RED CELL DISTRIBUTION WIDTH 13.1 % (11.6-14.8); WHITE BLOOD COUNT 6.7 K/UL (4.8-10.8)
[2018-06-30 10:37] LABS: ANION GAP 0 mmol/L (5-15); BLOOD UREA NITROGEN 26 mg/dL (7-18); CALCIUM 8.9 MG/DL (8.5-10.1); CARBON DIOXIDE 38 MMOL/L (21-32); CHLORIDE 109 MMOL/L (98-107); CREATININE 0.6 MG/DL (0.55-1.30); POTASSIUM 4.4 MMOL/L (3.5-5.1); SODIUM 147 MMOL/L (136-145)
[2018-06-30] MEDS: Albuterol/Ipratropium 3ml neb HHN PRN ×2 (10:38→17:41)
[2018-06-30 10:39] LABS: ALANINE AMINOTRANSFERASE 18 U/L (12-78); ALBUMIN 2.7 G/DL (3.4-5.0); ALBUMIN/GLOBULIN RATIO 0.6 (1.0-2.7); ALKALINE PHOSPHATASE 122 U/L (46-116); ASPARTATE AMINO TRANSFERASE 25 U/L (15-37); BILIRUBIN,TOTAL 0.3 MG/DL (0.2-1.0)
[2018-06-30] MEDS ORDERED: COREG12.5 MG ORAL (13:37)
[2018-06-30] MEDS ORDERED: NOVOLOG100 UNIT/5 (13:38)
[2018-06-30] MEDS ORDERED: PROTONIX20 MG GT (13:39)
--- NOTE | 2018-06-30 15:38 | Diagnostic Imaging Report ---
Indication: Shortness of breath Technique: One view of the chest Comparison: 06/29/2018 Findings: The heart is enlarged. There is bilateral interstitial and airspace edema and bilateral pleural effusions. Right chest port catheter is again demonstrated. Findings are unchanged Impression: Unchanged, over one day, findings as above.
[2018-06-30] MEDS: Dyna-Hex 2% Top Sol 2oz TOPIC SCH (20:50)
[2018-07-01] VITALS: BP 170/59
--- NOTE | 2018-07-01 00:15 | Discharge Summary ---
DATE OF ADMISSION: 06/24/2018 DATE OF DISCHARGE: 06/30/2018 ADMISSION DIAGNOSES: 1. Pneumonia. 2. Respiratory failure. 3. Toxic metabolic encephalopathy. 4. Sepsis. 5. History of seizure disorder. 6. History of dysphagia, G-tube. 7. Prior history of stroke. 8. Hypertension. DISCHARGE DIAGNOSES: 1. Pneumonia. 2. Respiratory failure. 3. Toxic metabolic encephalopathy. 4. Sepsis. 5. History of seizure disorder. 6. History of dysphagia, G-tube. 7. Prior history of stroke. 8. Hypertension. HOSPITAL COURSE: The patient is an unfortunate female who was admitted with complaints of sepsis, shortness of breath secondary to pneumonia. She also had evidence of acute on chronic CHF exacerbation. She received IV antibiotics. She was diuresed gently. She received respiratory treatments [id number] and aggressive pulmonary toilet. She was continued on seizure medications. Cultures to follow up and antibiotics were adjusted based on culture results. On discharge, the patient was stable. She will be discharged back to the [facility] facility. She completed all of her antibiotics while in-house. DISCHARGE MEDICATIONS: Please see discharge medication list for discharge medications. DIET: G-tube feedings. ACTIVITIES: Ad-maritza. FOLLOWUP: The patient to follow up in one to two days in [facility] facility. Michael Sprague M.D. DR: SHEREE JOB#: [id number] CC:
--- NOTE | 2018-07-01 02:45 | Progress Note ---
DATE: 06/30/2018 CARDIOLOGY PROGRESS NOTE SUBJECTIVE: The patient is having worsening congestion and shortness of breath. She is tachypneic at this time. She was given a dose of furosemide, but did not improve. OBJECTIVE: VITAL SIGNS: Blood pressure 175/80, pulse 72, respirations 25, and afebrile. LUNGS: Coarse breath sounds. Scattered rhonchi. Accessory muscle use. HEART: Regular rhythm. Rapid rate. Normal S1, S2. ABDOMEN: Soft. EXTREMITIES: Trace edema. LABORATORY AND DIAGNOSTIC DATA: ABG this morning pH, 7.39, pCO2 59, and pO2 96. Sodium 147, potassium 4.4, bicarbonate 38, BUN 26, and creatinine 0.6. White count 6.7 and hemoglobin 11.9. Chest x-ray this afternoon revealed interstitial airspace edema and pleural effusions. IMPRESSION: 1. Acute respiratory insufficiency. 2. Hypoxia. 3. Acute on chronic respiratory acidosis. 4. Pleural effusion. 5. Healthcare-acquired aspiration pneumonia. 6. Acute on chronic diastolic congestive heart failure. 7. Hypernatremia with dehydration. 8. Prerenal azotemia. 9. Anemia. PLAN: 1. Free water replacement. 2. Respiratory hygiene. 3. Bronchodilators. 4. BiPAP support. 5. Antimicrobials per Infectious Disease national sales consultant. 6. DVT prophylaxis. 7. Monitor volume status, clinical parameters, and acid-based status. 8. May need intubation and mechanical ventilation, if fails to respond. Brayan Card M.D. DR: CAMILA JOB#: [id number] CC:
[2018-07-01] MEDS ORDERED: Albuterol/Ipratropium 3ml neb HHN SCH (03:00)
[2018-07-01 04:00] VITALS: BP 125/63
[2018-07-01] MEDS: NovoLOG Insulin Flexpen SUBQ SCH ×4 (06:00→18:00)
[2018-07-01 06:47] LABS: EOSINOPHILS % (AUTO) 0.9 % (0.0-3.0); HEMATOCRIT 33.4 % (37.0-47.0); HEMOGLOBIN 10.7 G/DL (12.0-16.0); LYMPHOCYTES % (AUTO) 19.2 % (20.0-45.0); MEAN CORPUSCULAR VOLUME 101 FL (80-99); MONOCYTES % (AUTO) 7.5 % (1.0-10.0); NEUTROPHILS % (AUTO) 71.4 % (45.0-75.0); PLATELET COUNT 148 K/UL (150-450); RED BLOOD COUNT 3.29 M/UL (4.20-5.40); RED CELL DISTRIBUTION WIDTH 13.1 % (11.6-14.8); WHITE BLOOD COUNT 7.3 K/UL (4.8-10.8)
[2018-07-01] MEDS ORDERED: Albuterol/Ipratropium 3ml neb HHN PRN (07:03)
[2018-07-01 07:10] LABS: ALANINE AMINOTRANSFERASE 15 U/L (12-78); ALBUMIN 2.4 G/DL (3.4-5.0); ALBUMIN/GLOBULIN RATIO 0.6 (1.0-2.7); ALKALINE PHOSPHATASE 109 U/L (46-116); ANION GAP 2 mmol/L (5-15); ASPARTATE AMINO TRANSFERASE 19 U/L (15-37); BILIRUBIN,TOTAL 0.3 MG/DL (0.2-1.0); BLOOD UREA NITROGEN 23 mg/dL (7-18); CARBON DIOXIDE 37 MMOL/L (21-32); CHLORIDE 108 MMOL/L (98-107); CREATININE 0.5 MG/DL (0.55-1.30); POTASSIUM 3.6 MMOL/L (3.5-5.1); SODIUM 147 MMOL/L (136-145)
[2018-07-01] MEDS: Albuterol/Ipratropium 3ml neb HHN SCH ×5 (07:33→23:41)
--- NOTE | 2018-07-01 07:53 | General Progress Note ---
Assessment/Plan Problem List: (1) Acute on chronic diastolic (congestive) heart failure ICD Codes: I50.33 - Acute on chronic diastolic (congestive) heart failure SNOMED: 64445644, 834359086 (2) Dyspnea ICD Codes: R06.00 - Dyspnea, unspecified SNOMED: 430757753 (3) Respiratory distress ICD Codes: R06.03 - Acute respiratory distress SNOMED: 599161053 (4) UTI (urinary tract infection) ICD Codes: N39.0 - Urinary tract infection, site not specified SNOMED: 60690071 Qualifiers: Qualified Codes: N39.0 - Urinary tract infection, site not specified (5) Hypoxia ICD Codes: R09.02 - Hypoxemia SNOMED: 566936022 (6) Pneumonia ICD Codes: J18.9 - Pneumonia, unspecified organism SNOMED: 067847410 Qualifiers: Qualified Codes: J18.9 - Pneumonia, unspecified organism Status: deteriorating Assessment/Plan iv diuresis check sputum culture resp rx suctioning tube feeds monitor for aspiration Subjective ROS Limited/Unobtainable: Yes Constitutional: Reports: malaise, weakness HEENT: Reports: no symptoms Cardiovascular: Reports: no symptoms Respiratory: Reports: shortness of breath, sputum Gastrointestinal/Abdominal: Reports: difficulty swallowing Genitourinary: Reports: no symptoms Neurologic/Psychiatric: Reports: pre-existing deficit, seizure Endocrine: Reports: no symptoms Hematologic/Lymphatic: Reports: anemia Allergies: Coded Allergies: PENICILLINS (Verified Allergy, Unknown, 02/04/18) SULFA (SULFONAMIDE ANTIBIOTICS) (Verified Allergy, Unknown, 02/04/18) SULFACETAMIDE (Unverified Allergy, Unknown, 06/24/18) All Systems: reviewed and negative except above Subjective transferred to [facility] for resp distress. pt became suddenly sob and tachypneic. given lasix x 1 without improvement. requiring suctioning every 2 hrs. Objective Last 24 Hour Vital Signs Date Time Temp Pulse Resp B/P (MAP) Pulse Ox O2 Delivery O2 Flow Rate FiO2 07/01/18 07:47 67 20 98 Nasal Cannula 2.0 28 07/01/18 07:25 62 18 91 Nasal Cannula 2.0 28 07/01/18 07:20 Nasal Cannula 2.0 28 07/01/18 04:00 98.4 64 20 125/63 (83) 99 98.4 07/01/18 03:54 64 07/01/18 03:36 79 20 100 Nasal Cannula 2.0 28 07/01/18 03:36 28 07/01/18 02:43 65 18 99 Nasal Cannula 2.0 28 07/01/18 00:07 77 07/01/18 00:00 97.3 71 23 170/59 (96) 100 97.3 06/30/18 22:59 175/80 06/30/18 22:30 72 25 175/80 (111) 94 06/30/18 21:00 Nasal Cannula 2.0 Nasal Cannula 2.0 06/30/18 20:52 71 175/96 06/30/18 20:51 71 175/96 06/30/18 20:00 97.5 71 23 175/96 (122) 98 97.5 06/30/18 19:55 Nasal Cannula 2.0 06/30/18 19:54 84 18 Nasal Cannula 2.0 06/30/18 16:05 160/81 06/30/18 15:57 98.4 69 22 160/81 (107) 95 98.4 06/30/18 12:00 98.0 80 22 141/69 (93) 100 98.0 06/30/18 10:39 81 20 100 Nasal Cannula 2.0 06/30/18 10:28 28 06/30/18 10:28 79 18 96 Nasal Cannula 2.0 06/30/18 10:28 79 18 Nasal Cannula 2.0 06/30/18 10:28 Nasal Cannula 2.0 06/30/18 09:17 104 155/102 06/30/18 09:17 104 155/102 06/30/18 09:00 Nasal Cannula 2.0 Nasal Cannula 2.0 06/30/18 08:00 97.3 68 20 157/79 (105) 100 97.3 Intake and Output 06/30/18 07/01/18 19:00 07:00 Intake Total 975 ml Output Total 700 ml Balance 275 ml Intake Free Water 200 ml IV Total 375 ml Tube Feeding 400 ml Output Urine Total 700 ml # Voids 3 Laboratory Tests 06/30/18 10:10: White Blood Count 6.7, Red Blood Count 3.69L, Hemoglobin 11.9L, Hematocrit 37.4 , Mean Corpuscular Volume 101H, Mean Corpuscular Hemoglobin 32.3H, Mean Corpuscular Hemoglobin Concent 31.9L, Red Cell Distribution Width 13.1, Platelet Count 179, Mean Platelet Volume 10.3H, Neutrophils (%) (Auto) 72.5, Lymphocytes (%) (Auto) 18.4L, Monocytes (%) (Auto) 6.0, Eosinophils (%) (Auto) 2.6, Basophils (%) (Auto) 0.5, Sodium Level 147H, Potassium Level 4.4, Chloride Level 109H, Carbon Dioxide Level 38H, Anion Gap 0L, Blood Urea Nitrogen 26H, Creatinine 0.6, Estimat Glomerular Filtration Rate , Glucose Level 159H, Calcium Level 8.9, Total Bilirubin 0.3, Aspartate Amino Transf (AST/SGOT) 25, Alanine Aminotransferase (ALT/SGPT) 18, Alkaline Phosphatase 122H, Total Protein 7.1, Albumin 2.7L, Globulin 4.4, Albumin/Globulin Ratio 0.6L 06/30/18 10:20: Arterial Blood pH 7.388, Arterial Blood Partial Pressure CO2 59.9*H, Arterial Blood Partial Pressure O2 96.2, Arterial Blood HCO3 35.3H, Arterial Blood Oxygen Saturation 97.0, Arterial Blood Base Excess 8.4, Jose Luis Test Positive 07/01/18 00:08: Arterial Blood pH 7.459H, Arterial Blood Partial Pressure CO2 52.2H, Arterial Blood Partial Pressure O2 120.7H, Arterial Blood HCO3 36.2H, Arterial Blood Oxygen Saturation 98.4H, Arterial Blood Base Excess 10.7, Jose Luis Test Positive 07/01/18 04:40: White Blood Count 7.3, Red Blood Count 3.29L, Hemoglobin 10.7L, Hematocrit 33.4L , Mean Corpuscular Volume 101H, Mean Corpuscular Hemoglobin 32.5H, Mean Corpuscular Hemoglobin Concent 32.1, Red Cell Distribution Width 13.1, Platelet Count 148L, Mean Platelet Volume 9.5, Neutrophils (%) (Auto) 71.4, Lymphocytes ( %) (Auto) 19.2L, Monocytes (%) (Auto) 7.5, Eosinophils (%) (Auto) 0.9, Basophils (%) (Auto) 1.0, Sodium Level 147H, Potassium Level 3.6, Chloride Level 108H, Carbon Dioxide Level 37H, Anion Gap 2L, Blood Urea Nitrogen 23H, Creatinine 0.5L, Estimat Glomerular Filtration Rate , Glucose Level 136H, Calcium Level 9.0, Total Bilirubin 0.3, Aspartate Amino Transf (AST/SGOT) 19, Alanine Aminotransferase (ALT/SGPT) 15, Alkaline Phosphatase 109, Total Protein 6.4, Albumin 2.4L, Globulin 4.0, Albumin/Globulin Ratio 0.6L, Magnesium Level 1.9, Pro-B-Type Natriuretic Peptide 7949H Height (Feet): 5 Height (Inches): 5.00 Weight (Pounds): 175 Objective General Appearance: WD/WN, alert Neck: supple Cardiovascular: regular rhythm Respiratory/Chest: rhonchi edwige Abdomen: normal bowel sounds, non tender, soft, no organomegaly Edema: no edema noted Arm (L), no edema noted Arm (R), no edema noted Leg (L), no edema noted Leg (R), no edema noted Pedal (L), no edema noted Pedal (R), no edema noted Generalized Neurologic: disoriented, unresponsive, aphasia Michael Sprague MD Jul 01, 2018 07:53
[2018-07-01 08:00] VITALS: BP 141/62
[2018-07-01] MEDS ORDERED: Docusate 100mg cap ORAL SCH (09:00)
--- NOTE | 2018-07-01 09:10 | Diagnostic Imaging Report ---
Indication: Dyspnea Technique: One view of the chest Comparison: 06/30/2018 Findings: Bilateral pleural effusions and bilateral interstitial and airspace edema persist, unchanged. The heart is borderline enlarged. Right jugular central venous catheter is again demonstrated. Findings are unchanged Impression: Unchanged, over one day, findings as above This agrees with the preliminary interpretation provided overnight by [facility] teleradiology service.
[2018-07-01] MEDS: Aspirin Baby 81mg GT SCH (09:40)
[2018-07-01] MEDS: levETIRAcetam 500mg/5ml Liquid GT SCH ×2 (09:40→20:56)
[2018-07-01] MEDS: Carvedilol 6.25mg Tab GT SCH ×2 (09:40→20:54)
[2018-07-01] MEDS: Pantoprazole Inj IVP SCH ×2 (09:41→20:56)
[2018-07-01] MEDS: Phenytoin Susp 100mg/4ml GT SCH ×2 (09:41→20:55)
[2018-07-01] MEDS: Heparin 5000 units/ml inj SUBQ SCH ×2 (09:42→20:57)
[2018-07-01] MEDS ORDERED: Docusate 100mg/10ml Liq GT SCH (10:00)
[2018-07-01] MEDS ORDERED: NS 275ml ONE (10:18)
--- NOTE | 2018-07-01 10:53 | Infectious Diseases Prog Note ---
"Assessment/Plan Assessment/Plan antibiotics : none A 1. e.coli UTI s/p rx 2. aerococcus | staph bacteremia s/p rx 3. diabetes mellitus 4. hypertension 5. dementia 6. pneumonia s/p rx P 1. continue off antibiotics Subjective Respiratory: Reports: shortness of breath, dry cough Gastrointestinal/Abdominal: Denies: nausea, vomiting, diarrhea Musculoskeletal: Denies: pain Allergies: Coded Allergies: PENICILLINS (Verified Allergy, Unknown, 02/04/18) SULFA (SULFONAMIDE ANTIBIOTICS) (Verified Allergy, Unknown, 02/04/18) SULFACETAMIDE (Unverified Allergy, Unknown, 06/24/18) Objective Vital Signs Last 24 Hour Vital Signs Date Time Temp Pulse Resp B/P (MAP) Pulse Ox O2 Delivery O2 Flow Rate FiO2 07/01/18 09:41 64 141/62 07/01/18 09:40 64 141/62 07/01/18 08:00 Nasal Cannula 2.0 Nasal Cannula 2.0 07/01/18 08:00 97.9 82 18 141/62 (88) 99 97.9 82 07/01/18 08:00 64 07/01/18 07:47 67 20 98 Nasal Cannula 2.0 28 07/01/18 07:25 62 18 91 Nasal Cannula 2.0 28 07/01/18 07:20 Nasal Cannula 2.0 28 07/01/18 04:00 98.4 64 20 125/63 (83) 99 98.4 07/01/18 03:54 64 07/01/18 03:36 79 20 100 Nasal Cannula 2.0 28 07/01/18 03:36 28 07/01/18 02:43 65 18 99 Nasal Cannula 2.0 28 07/01/18 00:07 77 07/01/18 00:00 97.3 71 23 170/59 (96) 100 97.3 06/30/18 22:59 175/80 06/30/18 22:30 72 25 175/80 (111) 94 06/30/18 21:00 Nasal Cannula 2.0 Nasal Cannula 2.0 06/30/18 20:52 71 175/96 06/30/18 20:51 71 175/96 06/30/18 20:00 97.5 71 23 175/96 (122) 98 97.5 06/30/18 19:55 Nasal Cannula 2.0 28 06/30/18 19:54 84 18 Nasal Cannula 2.0 28 06/30/18 16:05 160/81 06/30/18 15:57 98.4 69 22 160/81 (107) 95 98.4 06/30/18 12:00 98.0 80 22 141/69 (93) 100 98.0 Height (Feet): 5 Height (Inches): 5.00 Weight (Pounds): 175 Respiratory/Chest: lungs clear Cardiovascular: normal rate, regular rhythm, no gallop/murmur Abdomen: soft, non tender Extremities: no edema Laboratory Tests Test 07/01/18 00:08 07/01/18 04:40 07/01/18 09:00 Arterial Blood pH 7.459 (7.350-7.450) 7.442 (7.350-7.450) Arterial Blood Partial Pressure CO2 52.2 mmHg (35.0-45.0) H 55.7 mmHg (35.0-45.0) *H Arterial Blood Partial Pressure O2 120.7 mmHg (75.0-100.0) H 81.5 mmHg (75.0-100.0) Arterial Blood HCO3 36.2 mmol/L (22.0-26.0) H 37.2 mmol/L (22.0-26.0) H Arterial Blood Oxygen Saturation 98.4 % (92.0-98.0) H 95.9 % (92.0-98.0) Arterial Blood Base Excess 10.7 11.2 Jose Luis Test Positive Positive White Blood Count 7.3 K/UL (4.8-10.8) Red Blood Count 3.29 M/UL (4.20-5.40) L Hemoglobin 10.7 G/DL (12.0-16.0) L Hematocrit 33.4 % (37.0-47.0) L Mean Corpuscular Volume 101 FL (80-99) H Mean Corpuscular Hemoglobin 32.5 PG (27.0-31.0) H Mean Corpuscular Hemoglobin Concent 32.1 G/DL (32.0-36.0) Red Cell Distribution Width 13.1 % (11.6-14.8) Platelet Count 148 K/UL (150-450) L Mean Platelet Volume 9.5 FL (6.5-10.1) Neutrophils (%) (Auto) 71.4 % (45.0-75.0) Lymphocytes (%) (Auto) 19.2 % (20.0-45.0) L Monocytes (%) (Auto) 7.5 % (1.0-10.0) Eosinophils (%) (Auto) 0.9 % (0.0-3.0) Basophils (%) (Auto) 1.0 % (0.0-2.0) Sodium Level 147 MMOL/L (136-145) H Potassium Level 3.6 MMOL/L (3.5-5.1) Chloride Level 108 MMOL/L (98-107) H Carbon Dioxide Level 37 MMOL/L (21-32) H Anion Gap 2 mmol/L (5-15) L Blood Urea Nitrogen 23 mg/dL (7-18) H Creatinine 0.5 MG/DL (0.55-1.30) L Estimat Glomerular Filtration Rate mL/min (>60) Glucose Level 136 MG/DL (74-106) H Calcium Level 9.0 MG/DL (8.5-10.1) Magnesium Level 1.9 MG/DL (1.8-2.4) Total Bilirubin 0.3 MG/DL (0.2-1.0) Aspartate Amino Transf (AST/SGOT) 19 U/L (15-37) Alanine Aminotransferase (ALT/SGPT) 15 U/L (12-78) Alkaline Phosphatase 109 U/L (46-116) Pro-B-Type Natriuretic Peptide 7949 pg/mL (0-125) H Total Protein 6.4 G/DL (6.4-8.2) Albumin 2.4 G/DL (3.4-5.0) L Globulin 4.0 g/dL Albumin/Globulin Ratio 0.6 (1.0-2.7) L Current Medications Medications (Trade) Dose Ordered Sig/Singh Route PRN Reason Start Time Stop Time Status Last Admin Dose Admin Acetaminophen (Tylenol) 650 mg Q4H PRN ORAL Mild Pain/Temp > 100.5 07/01/18 07:03 07/28/18 07:02 Albuterol/ Ipratropium (Albuterol/ Ipratropium) 3 ml Q4H PRN HHN Shortness of Breath 07/01/18 07:03 07/05/18 07:02 Albuterol/ Ipratropium (Albuterol/ Ipratropium) 3 ml Q4HRT HHN 07/01/18 07:00 07/06/18 02:59 07/01/18 07:33 Amlodipine Besylate (Norvasc) 5 mg EVERY 12 HOURS ORAL 07/01/18 09:00 07/24/18 20:59 07/01/18 09:41 Aspirin (ASA) 81 mg DAILY GT 07/01/18 09:00 07/25/18 08:59 07/01/18 09:40 Atorvastatin Calcium (Lipitor) 10 mg BEDTIME GT 07/01/18 21:00 07/24/18 20:59 Carvedilol (Coreg) 12.5 mg EVERY 12 HOURS GT 07/01/18 09:00 07/28/18 08:59 07/01/18 09:40 Chlorhexidine Gluconate (Azra-Hex 2%) 1 applic DAILY@2000 TOPIC 07/01/18 20:00 07/25/18 19:59 Clonidine HCl (Catapres Tab) 0.1 mg Q6H PRN ORAL For High Blood Pressure 07/01/18 07:03 07/24/18 07:02 Dextrose 1,000 ml @ 75 mls/hr [id number] IV 07/01/18 14:30 07/31/18 14:29 Dextrose (Dextrose 50%) 25 ml STAT PRN IV Hypoglycemia 07/01/18 07:00 07/31/18 06:59 Dextrose (Dextrose 50%) 50 ml STAT PRN IV Hypoglycemia 07/01/18 07:00 07/31/18 06:59 Docusate Sodium (Colace) 100 mg DAILY GT 07/02/18 09:00 08/01/18 08:59 Docusate Sodium (Colace) 100 mg ONCE GT 07/01/18 10:00 07/01/18 11:00 07/01/18 09:40 Furosemide (Lasix) 40 mg DAILY IV 07/01/18 09:00 07/31/18 08:59 07/01/18 09:40 Heparin Sodium (Porcine) (Heparin 5000 units/ml) 5,000 units EVERY 12 HOURS SUBQ 07/01/18 09:00 07/25/18 08:59 07/01/18 09:42 Insulin Aspart (NovoLOG) Q6HR SUBQ 07/01/18 07:00 07/25/18 06:59 Levetiracetam (Keppra) 400 mg Q12HR GT 07/01/18 09:00 07/24/18 20:59 07/01/18 09:40 Pantoprazole (Protonix) 40 mg EVERY 12 HOURS IVP 07/01/18 09:00 07/24/18 20:59 07/01/18 09:41 Phenytoin (Dilantin) 125 mg Q12HR GT 07/01/18 09:00 07/24/18 20:59 07/01/18 09:41 RAMY BELLA Jul 01, 2018 10:53"
[2018-07-01 12:00] VITALS: BP 115/51
[2018-07-01 16:00] VITALS: BP 114/55
--- NOTE | 2018-07-01 19:26 | Pulmonology Progress Note ---
Assessment/Plan Assessment/Plan IMPRESSION: hypoxemia, possible mucus plugging, pneumonia, pleural effusions, respiratory insufficiency, protein-calorie malnutrition, dementia, aspiration, G-tube, prior history of CVA. PLAN keep negative and monitor as is respiratory care as is; no change needed oxygen as is monitoring for change aspiration precautions off steroids monitor imaging; still would optimize fluid balance impression, plan, and exam edited and reviewed in detail care discussed with RN Subjective ROS Limited/Unobtainable: Yes Allergies: Coded Allergies: PENICILLINS (Verified Allergy, Unknown, 02/04/18) SULFA (SULFONAMIDE ANTIBIOTICS) (Verified Allergy, Unknown, 02/04/18) SULFACETAMIDE (Unverified Allergy, Unknown, 06/24/18) Subjective care noted no distress seen earlier findings discussed Objective Last 24 Hour Vital Signs Date Time Temp Pulse Resp B/P (MAP) Pulse Ox O2 Delivery O2 Flow Rate FiO2 07/01/18 16:00 Nasal Cannula 2.0 Nasal Cannula 2.0 07/01/18 16:00 98.0 60 18 114/55 (74) 100 98.0 60 07/01/18 16:00 64 07/01/18 15:39 90 20 99 Nasal Cannula 2.0 28 07/01/18 15:20 69 20 97 Nasal Cannula 2.0 28 07/01/18 12:00 59 07/01/18 12:00 Nasal Cannula 2.0 Nasal Cannula 2.0 07/01/18 12:00 97.6 59 18 115/51 (72) 95 97.6 59 07/01/18 11:32 95 20 98 Nasal Cannula 2.0 28 07/01/18 11:20 65 18 97 Nasal Cannula 2.0 28 07/01/18 09:41 64 141/62 07/01/18 09:40 64 141/62 07/01/18 08:00 Nasal Cannula 2.0 Nasal Cannula 2.0 07/01/18 08:00 97.9 82 18 141/62 (88) 99 97.9 82 07/01/18 08:00 64 07/01/18 07:47 67 20 98 Nasal Cannula 2.0 28 07/01/18 07:25 62 18 91 Nasal Cannula 2.0 28 07/01/18 07:20 Nasal Cannula 2.0 28 07/01/18 04:00 98.4 64 20 125/63 (83) 99 98.4 07/01/18 03:54 64 07/01/18 03:36 79 20 100 Nasal Cannula 2.0 28 07/01/18 03:36 28 07/01/18 02:43 65 18 99 Nasal Cannula 2.0 28 07/01/18 00:07 77 07/01/18 00:00 97.3 71 23 170/59 (96) 100 97.3 06/30/18 22:59 175/80 06/30/18 22:30 72 25 175/80 (111) 94 06/30/18 21:00 Nasal Cannula 2.0 Nasal Cannula 2.0 06/30/18 20:52 71 175/96 06/30/18 20:51 71 175/96 06/30/18 20:00 97.5 71 23 175/96 (122) 98 97.5 06/30/18 19:55 Nasal Cannula 2.0 28 06/30/18 19:54 84 18 Nasal Cannula 2.0 28 Intake and Output 06/30/18 07/01/18 19:00 07:00 Intake Total 975 ml Output Total 700 ml Balance 275 ml Intake Free Water 200 ml IV Total 375 ml Tube Feeding 400 ml Output Urine Total 700 ml # Voids 3 Objective GENERAL: A female who is chronically ill, advanced age. NAD HEENT: Negative. NECK: Supple. LUNGS: no rhonchi. Moderate air entry reduced in both bases. same CARDIAC: S1 and S2. Regular rate and rhythm without murmurs, rubs, or gallops. ABDOMEN: Soft, nontender, nondistended. EXTREMITIES: No cyanosis or clubbing. Contractures noted overall. SKIN: Noted and reviewed. Microbiology Date/Time Source Procedure Growth Status 07/01/18 11:37 Sputum Gram Stain - Final Resulted 07/01/18 11:37 Sputum Sputum Culture Pending Resulted Laboratory Tests 07/01/18 00:08: Arterial Blood pH 7.459H, Arterial Blood Partial Pressure CO2 52.2H, Arterial Blood Partial Pressure O2 120.7H, Arterial Blood HCO3 36.2H, Arterial Blood Oxygen Saturation 98.4H, Arterial Blood Base Excess 10.7, Jose Luis Test Positive 07/01/18 04:40: White Blood Count 7.3, Red Blood Count 3.29L, Hemoglobin 10.7L, Hematocrit 33.4L , Mean Corpuscular Volume 101H, Mean Corpuscular Hemoglobin 32.5H, Mean Corpuscular Hemoglobin Concent 32.1, Red Cell Distribution Width 13.1, Platelet Count 148L, Mean Platelet Volume 9.5, Neutrophils (%) (Auto) 71.4, Lymphocytes ( %) (Auto) 19.2L, Monocytes (%) (Auto) 7.5, Eosinophils (%) (Auto) 0.9, Basophils (%) (Auto) 1.0, Sodium Level 147H, Potassium Level 3.6, Chloride Level 108H, Carbon Dioxide Level 37H, Anion Gap 2L, Blood Urea Nitrogen 23H, Creatinine 0.5L, Estimat Glomerular Filtration Rate , Glucose Level 136H, Calcium Level 9.0, Magnesium Level 1.9, Total Bilirubin 0.3, Aspartate Amino Transf (AST/SGOT) 19, Alanine Aminotransferase (ALT/SGPT) 15, Alkaline Phosphatase 109, Pro-B-Type Natriuretic Peptide 7949H, Total Protein 6.4, Albumin 2.4L, Globulin 4.0, Albumin/Globulin Ratio 0.6L 07/01/18 09:00: Arterial Blood pH 7.442, Arterial Blood Partial Pressure CO2 55.7*H, Arterial Blood Partial Pressure O2 81.5, Arterial Blood HCO3 37.2H, Arterial Blood Oxygen Saturation 95.9, Arterial Blood Base Excess 11.2, Jose Luis Test Positive Current Medications Medications (Trade) Dose Ordered Sig/Singh Route PRN Reason Start Time Stop Time Status Last Admin Dose Admin Acetaminophen (Tylenol) 650 mg Q4H PRN ORAL Mild Pain/Temp > 100.5 07/01/18 07:03 07/28/18 07:02 Albuterol/ Ipratropium (Albuterol/ Ipratropium) 3 ml Q4H PRN HHN Shortness of Breath 07/01/18 07:03 07/05/18 07:02 Albuterol/ Ipratropium (Albuterol/ Ipratropium) 3 ml Q4HRT HHN 07/01/18 07:00 07/06/18 02:59 07/01/18 15:25 Amlodipine Besylate (Norvasc) 5 mg EVERY 12 HOURS ORAL 07/01/18 09:00 07/24/18 20:59 07/01/18 09:41 Aspirin (ASA) 81 mg DAILY GT 07/01/18 09:00 07/25/18 08:59 07/01/18 09:40 Atorvastatin Calcium (Lipitor) 10 mg BEDTIME GT 07/01/18 21:00 07/24/18 20:59 Carvedilol (Coreg) 12.5 mg EVERY 12 HOURS GT 07/01/18 09:00 07/28/18 08:59 07/01/18 09:40 Chlorhexidine Gluconate (Azra-Hex 2%) 1 applic DAILY@2000 TOPIC 07/01/18 20:00 07/25/18 19:59 Clonidine HCl (Catapres Tab) 0.1 mg Q6H PRN ORAL For High Blood Pressure 07/01/18 07:03 07/24/18 07:02 Dextrose 1,000 ml @ 75 mls/hr [id number] IV 07/01/18 14:30 07/31/18 14:29 07/01/18 14:57 Dextrose (Dextrose 50%) 25 ml STAT PRN IV Hypoglycemia 07/01/18 07:00 07/31/18 06:59 Dextrose (Dextrose 50%) 50 ml STAT PRN IV Hypoglycemia 07/01/18 07:00 07/31/18 06:59 Docusate Sodium (Colace) 100 mg DAILY GT 07/02/18 09:00 08/01/18 08:59 Furosemide (Lasix) 40 mg DAILY IV 07/01/18 09:00 07/31/18 08:59 07/01/18 09:40 Heparin Sodium (Porcine) (Heparin 5000 units/ml) 5,000 units EVERY 12 HOURS SUBQ 07/01/18 09:00 07/25/18 08:59 07/01/18 09:42 Insulin Aspart (NovoLOG) Q6HR SUBQ 07/01/18 07:00 07/25/18 06:59 Levetiracetam (Keppra) 400 mg Q12HR GT 07/01/18 09:00 07/24/18 20:59 07/01/18 09:40 Pantoprazole (Protonix) 40 mg EVERY 12 HOURS IVP 07/01/18 09:00 07/24/18 20:59 07/01/18 09:41 Phenytoin (Dilantin) 125 mg Q12HR GT 07/01/18 09:00 07/24/18 20:59 07/01/18 09:41 Navdeep Mcgowan MD Jul 01, 2018 19:26
[2018-07-01 20:00] VITALS: BP 142/71
[2018-07-01] MEDS: Dyna-Hex 2% Top Sol 2oz TOPIC SCH (20:51)
[2018-07-02] VITALS: BP 123/65
--- NOTE | 2018-07-02 01:30 | Progress Note ---
DATE: 07/01/2018 CARDIOLOGY PROGRESS NOTE SUBJECTIVE: The patient remains with deteriorating clinical parameters. She has had worsening respiratory distress with shortness of breath and tachypnea last evening. She has been requiring [id number] suctioning. She has been diuresed with IV furosemide. OBJECTIVE: VITAL SIGNS: Blood pressure 125/63, pulse 64, respiratory rate 20, and afebrile. LUNGS: Coarse breath sounds. Scattered rhonchi. HEART: Regular rhythm. Rapid rate. Normal S1, S2. ABDOMEN: Soft. EXTREMITIES: Trace edema. LABORATORY AND DIAGNOSTIC DATA: White count 7.3, hemoglobin 10.7. Sodium 147, potassium 3.6, bicarbonate 37, BUN 23, and creatinine 0.5. Pro-natriuretic peptide 7900. Albumin 2.4. Chest x-ray reveals no new changes from yesterday with bilateral pleural effusions, interstitial and airspace edema. IMPRESSION: 1. Healthcare-acquired pneumonia. 2. Hypoxia. 3. Aspiration. 4. Respiratory failure. 5. Acute on chronic diastolic congestive heart failure. 6. Dehydration. 7. Hypernatremia. 8. Severe protein-calorie malnutrition. 9. CVA with dementia. 10. Dysphagia with G-tube. PLAN: 1. Respiratory hygiene. 2. Bronchodilators. 3. Oxygenation. 4. Off steroids. 5. Hold diuresis. 6. Free water replacement. 7. Antimicrobials. 8. DVT and stress ulcer prophylaxes. 9. Remains high risk. Brayan Card M.D. DR: NGOC JOB#: [id number] CC:
[2018-07-02] MEDS: Albuterol/Ipratropium 3ml neb HHN SCH ×6 (03:40→23:15)
[2018-07-02 03:55] VITALS: BP 152/83
[2018-07-02 05:58] LABS: BASOPHILS % (AUTO) 1.1 % (0.0-2.0); EOSINOPHILS % (AUTO) 2.9 % (0.0-3.0); HEMATOCRIT 33.9 % (37.0-47.0); HEMOGLOBIN 11.1 G/DL (12.0-16.0); LYMPHOCYTES % (AUTO) 24.5 % (20.0-45.0); MEAN CORPUSCULAR VOLUME 101 FL (80-99); MONOCYTES % (AUTO) 7.3 % (1.0-10.0); NEUTROPHILS % (AUTO) 64.2 % (45.0-75.0); PLATELET COUNT 159 K/UL (150-450); RED BLOOD COUNT 3.37 M/UL (4.20-5.40); RED CELL DISTRIBUTION WIDTH 12.9 % (11.6-14.8)
[2018-07-02] MEDS: NovoLOG Insulin Flexpen SUBQ SCH ×4 (06:00→17:07)
[2018-07-02 06:12] LABS: ALANINE AMINOTRANSFERASE 16 U/L (12-78); ALBUMIN 2.4 G/DL (3.4-5.0); ALBUMIN/GLOBULIN RATIO 0.6 (1.0-2.7); ALKALINE PHOSPHATASE 105 U/L (46-116); ANION GAP -1 mmol/L (5-15); ASPARTATE AMINO TRANSFERASE 20 U/L (15-37); BILIRUBIN,TOTAL 0.3 MG/DL (0.2-1.0); BLOOD UREA NITROGEN 21 mg/dL (7-18); CALCIUM 8.5 MG/DL (8.5-10.1); CARBON DIOXIDE 38 MMOL/L (21-32); CHLORIDE 102 MMOL/L (98-107); CREATININE 0.5 MG/DL (0.55-1.30); POTASSIUM 3.4 MMOL/L (3.5-5.1); SODIUM 139 MMOL/L (136-145)
[2018-07-02 08:00] VITALS: BP 153/80
[2018-07-02] MEDS: Carvedilol 6.25mg Tab GT SCH ×2 (08:15→21:02)
[2018-07-02] MEDS: Aspirin Baby 81mg GT SCH (08:15)
[2018-07-02] MEDS: levETIRAcetam 500mg/5ml Liquid GT SCH ×2 (08:15→21:03)
[2018-07-02] MEDS: Pantoprazole Inj IVP SCH ×2 (08:15→21:03)
[2018-07-02] MEDS: Docusate 100mg/10ml Liq GT SCH (08:15)
[2018-07-02] MEDS: Heparin 5000 units/ml inj SUBQ SCH ×2 (08:18→21:05)
--- NOTE | 2018-07-02 08:53 | Pulmonology Progress Note ---
Assessment/Plan Assessment/Plan IMPRESSION: hypoxemia, possible mucus plugging, pneumonia, pleural effusions, respiratory insufficiency, protein-calorie malnutrition, dementia, aspiration, G-tube, prior history of CVA. PLAN keep negative and monitor as is respiratory care as is; no change needed oxygen as is monitoring for change aspiration precautions off steroids monitor imaging; still would optimize fluid balance impression, plan, and exam edited and reviewed in detail care discussed with RN Subjective ROS Limited/Unobtainable: Yes Allergies: Coded Allergies: PENICILLINS (Verified Allergy, Unknown, 02/04/18) SULFA (SULFONAMIDE ANTIBIOTICS) (Verified Allergy, Unknown, 02/04/18) SULFACETAMIDE (Unverified Allergy, Unknown, 06/24/18) Subjective care noted no distress findings discussed Objective Last 24 Hour Vital Signs Date Time Temp Pulse Resp B/P (MAP) Pulse Ox O2 Delivery O2 Flow Rate FiO2 07/02/18 08:27 77 07/02/18 08:15 75 153/80 07/02/18 08:15 75 153/80 07/02/18 08:00 96.8 75 22 153/80 (104) 100 96.8 75 07/02/18 07:30 66 22 100 Nasal Cannula 2.0 28 07/02/18 07:20 86 22 96 Nasal Cannula 2.0 28 07/02/18 07:19 Nasal Cannula 2.0 28 07/02/18 07:18 96 Nasal Cannula 2.0 28 07/02/18 04:00 65 07/02/18 03:57 Nasal Cannula 2.0 Nasal Cannula 2.0 07/02/18 03:55 97.4 66 20 152/83 (106) 100 97.4 57 07/02/18 03:50 64 18 98 Nasal Cannula 2.0 28 07/02/18 03:40 70 22 98 Nasal Cannula 2.0 28 07/02/18 00:00 Nasal Cannula 2.0 Nasal Cannula 2.0 07/02/18 00:00 98.5 57 20 123/65 (84) 100 98.5 57 07/01/18 23:49 60 07/01/18 23:49 66 18 99 Nasal Cannula 2.0 28 07/01/18 23:40 63 20 96 Nasal Cannula 2.0 28 07/01/18 20:54 63 142/71 07/01/18 20:51 63 142/71 07/01/18 20:02 61 07/01/18 20:00 Nasal Cannula 2.0 07/01/18 20:00 98.5 63 16 142/71 (94) 100 98.5 63 07/01/18 19:47 62 18 99 Nasal Cannula 2.0 28 07/01/18 19:39 97 Nasal Cannula 2.0 28 07/01/18 19:38 60 20 97 Nasal Cannula 2.0 28 07/01/18 19:37 Nasal Cannula 2.0 28 07/01/18 16:00 Nasal Cannula 2.0 Nasal Cannula 2.0 07/01/18 16:00 98.0 60 18 114/55 (74) 100 98.0 60 07/01/18 16:00 64 07/01/18 15:39 90 20 99 Nasal Cannula 2.0 28 07/01/18 15:20 69 20 97 Nasal Cannula 2.0 28 07/01/18 12:00 59 07/01/18 12:00 Nasal Cannula 2.0 Nasal Cannula 2.0 07/01/18 12:00 97.6 59 18 115/51 (72) 95 97.6 59 07/01/18 11:32 95 20 98 Nasal Cannula 2.0 28 07/01/18 11:20 65 18 97 Nasal Cannula 2.0 28 07/01/18 09:41 64 141/62 07/01/18 09:40 64 141/62 Intake and Output 07/01/18 07/02/18 19:00 07:00 Intake Total 910 ml 1480 ml Output Total 750 ml Balance 160 ml 1480 ml Intake Free Water 260 ml 180 ml IV Total 300 ml 900 ml Tube Feeding 350 ml 400 ml Output Urine Total 750 ml Objective GENERAL: A female who is chronically ill, advanced age. NAD HEENT: Negative. NECK: Supple. LUNGS: no rhonchi. Moderate air entry reduced in both bases. same CARDIAC: S1 and S2. Regular rate and rhythm without murmurs, rubs, or gallops. ABDOMEN: Soft, nontender, nondistended. EXTREMITIES: No cyanosis or clubbing. Contractures noted overall. SKIN: Noted and reviewed. Microbiology Date/Time Source Procedure Growth Status 07/01/18 11:37 Sputum Gram Stain - Final Resulted 07/01/18 11:37 Sputum Sputum Culture - Preliminary Resulted Laboratory Tests 07/01/18 09:00: Arterial Blood pH 7.442, Arterial Blood Partial Pressure CO2 55.7*H, Arterial Blood Partial Pressure O2 81.5, Arterial Blood HCO3 37.2H, Arterial Blood Oxygen Saturation 95.9, Arterial Blood Base Excess 11.2, Jose Luis Test Positive 07/02/18 04:00: White Blood Count 6.0, Red Blood Count 3.37L, Hemoglobin 11.1L, Hematocrit 33.9L , Mean Corpuscular Volume 101H, Mean Corpuscular Hemoglobin 32.9H, Mean Corpuscular Hemoglobin Concent 32.8, Red Cell Distribution Width 12.9, Platelet Count 159, Mean Platelet Volume 9.9, Neutrophils (%) (Auto) 64.2, Lymphocytes (% ) (Auto) 24.5, Monocytes (%) (Auto) 7.3, Eosinophils (%) (Auto) 2.9, Basophils ( %) (Auto) 1.1, Sodium Level 139, Potassium Level 3.4L, Chloride Level 102, Carbon Dioxide Level 38H, Anion Gap -1L, Blood Urea Nitrogen 21H, Creatinine 0.5L, Estimat Glomerular Filtration Rate , Glucose Level 162H, Calcium Level 8.5 , Magnesium Level 1.9, Total Bilirubin 0.3, Aspartate Amino Transf (AST/SGOT) 20 , Alanine Aminotransferase (ALT/SGPT) 16, Alkaline Phosphatase 105, Total Protein 6.6, Albumin 2.4L, Globulin 4.2, Albumin/Globulin Ratio 0.6L Current Medications Medications (Trade) Dose Ordered Sig/Singh Route PRN Reason Start Time Stop Time Status Last Admin Dose Admin Acetaminophen (Tylenol) 650 mg Q4H PRN ORAL Mild Pain/Temp > 100.5 07/01/18 07:03 07/28/18 07:02 Albuterol/ Ipratropium (Albuterol/ Ipratropium) 3 ml Q4H PRN HHN Shortness of Breath 07/01/18 07:03 07/05/18 07:02 Albuterol/ Ipratropium (Albuterol/ Ipratropium) 3 ml Q4HRT HHN 07/01/18 07:00 07/06/18 02:59 07/02/18 07:20 Amlodipine Besylate (Norvasc) 5 mg EVERY 12 HOURS ORAL 07/01/18 09:00 07/24/18 20:59 07/02/18 08:15 Aspirin (ASA) 81 mg DAILY GT 07/01/18 09:00 07/25/18 08:59 07/02/18 08:15 Atorvastatin Calcium (Lipitor) 10 mg BEDTIME GT 07/01/18 21:00 07/24/18 20:59 07/01/18 20:52 Carvedilol (Coreg) 12.5 mg EVERY 12 HOURS GT 07/01/18 09:00 07/28/18 08:59 07/02/18 08:15 Chlorhexidine Gluconate (Azra-Hex 2%) 1 applic DAILY@2000 TOPIC 07/01/18 20:00 07/25/18 19:59 07/01/18 20:51 Clonidine HCl (Catapres Tab) 0.1 mg Q6H PRN ORAL For High Blood Pressure 07/01/18 07:03 07/24/18 07:02 Dextrose 1,000 ml @ 75 mls/hr [id number] IV 07/01/18 14:30 07/31/18 14:29 07/02/18 03:56 Dextrose (Dextrose 50%) 25 ml STAT PRN IV Hypoglycemia 07/01/18 07:00 07/31/18 06:59 Dextrose (Dextrose 50%) 50 ml STAT PRN IV Hypoglycemia 07/01/18 07:00 07/31/18 06:59 Docusate Sodium (Colace) 100 mg DAILY GT 07/02/18 09:00 08/01/18 08:59 07/02/18 08:15 Furosemide (Lasix) 40 mg DAILY IV 07/01/18 09:00 07/31/18 08:59 07/02/18 08:16 Heparin Sodium (Porcine) (Heparin 5000 units/ml) 5,000 units EVERY 12 HOURS SUBQ 07/01/18 09:00 07/25/18 08:59 07/02/18 08:18 Insulin Aspart (NovoLOG) Q6HR SUBQ 07/01/18 07:00 07/25/18 06:59 Levetiracetam (Keppra) 400 mg Q12HR GT 07/01/18 09:00 07/24/18 20:59 07/02/18 08:15 Pantoprazole (Protonix) 40 mg EVERY 12 HOURS IVP 9/5/18 09:00 07/24/18 20:59 07/02/18 08:15 Phenytoin (Dilantin) 125 mg Q12HR GT 07/01/18 09:00 07/24/18 20:59 07/01/18 20:55 Navdeep Mcgowan MD Jul 02, 2018 08:53
[2018-07-02] MEDS: Phenytoin Susp 100mg/4ml GT SCH ×2 (09:21→21:03)
--- NOTE | 2018-07-02 09:30 | Infectious Diseases Prog Note ---
Assessment/Plan Assessment/Plan A: 1. E. coli UTI, treated 2. Pneumonia treated 3. Diabetes mellitus. 4. Hypertension. 5. Advanced dementia. 6. Altered mental status. 7.Positive blood culture, likely contamination P; observe off antibiotic Subjective ROS Limited/Unobtainable: Yes Constitutional: Reports: other - afebrile Allergies: Coded Allergies: PENICILLINS (Verified Allergy, Unknown, 02/04/18) SULFA (SULFONAMIDE ANTIBIOTICS) (Verified Allergy, Unknown, 02/04/18) SULFACETAMIDE (Unverified Allergy, Unknown, 06/24/18) Objective Vital Signs Last 24 Hour Vital Signs Date Time Temp Pulse Resp B/P (MAP) Pulse Ox O2 Delivery O2 Flow Rate FiO2 07/02/18 08:27 77 07/02/18 08:15 75 153/80 07/02/18 08:15 75 153/80 07/02/18 08:00 96.8 75 22 153/80 (104) 100 96.8 75 07/02/18 07:30 66 22 100 Nasal Cannula 2.0 28 07/02/18 07:20 86 22 96 Nasal Cannula 2.0 28 07/02/18 07:19 Nasal Cannula 2.0 28 07/02/18 07:18 96 Nasal Cannula 2.0 28 07/02/18 04:00 65 07/02/18 03:57 Nasal Cannula 2.0 Nasal Cannula 2.0 07/02/18 03:55 97.4 66 20 152/83 (106) 100 97.4 57 07/02/18 03:50 64 18 98 Nasal Cannula 2.0 28 07/02/18 03:40 70 22 98 Nasal Cannula 2.0 28 07/02/18 00:00 Nasal Cannula 2.0 Nasal Cannula 2.0 07/02/18 00:00 98.5 57 20 123/65 (84) 100 98.5 57 07/01/18 23:49 60 07/01/18 23:49 66 18 99 Nasal Cannula 2.0 28 07/01/18 23:40 63 20 96 Nasal Cannula 2.0 28 07/01/18 20:54 63 142/71 07/01/18 20:51 63 142/71 07/01/18 20:02 61 07/01/18 20:00 Nasal Cannula 2.0 07/01/18 20:00 98.5 63 16 142/71 (94) 100 98.5 63 07/01/18 19:47 62 18 99 Nasal Cannula 2.0 28 07/01/18 19:39 97 Nasal Cannula 2.0 28 07/01/18 19:38 60 20 97 Nasal Cannula 2.0 28 07/01/18 19:37 Nasal Cannula 2.0 28 07/01/18 16:00 Nasal Cannula 2.0 Nasal Cannula 2.0 07/01/18 16:00 98.0 60 18 114/55 (74) 100 98.0 60 07/01/18 16:00 64 07/01/18 15:39 90 20 99 Nasal Cannula 2.0 28 07/01/18 15:20 69 20 97 Nasal Cannula 2.0 28 07/01/18 12:00 59 07/01/18 12:00 Nasal Cannula 2.0 Nasal Cannula 2.0 07/01/18 12:00 97.6 59 18 115/51 (72) 95 97.6 59 07/01/18 11:32 95 20 98 Nasal Cannula 2.0 28 07/01/18 11:20 65 18 97 Nasal Cannula 2.0 28 07/01/18 09:41 64 141/62 07/01/18 09:40 64 141/62 Height (Feet): 5 Height (Inches): 5.00 Weight (Pounds): 199 HEENT: mucous membranes moist Respiratory/Chest: lungs clear Cardiovascular: normal rate, other - RIJ central line Abdomen: distended, other - GT feeding Extremities: no edema Neurologic/Psychiatric: aphasia, other - awake Microbiology Date/Time Source Procedure Growth Status 07/01/18 11:37 Sputum Gram Stain - Final Resulted 07/01/18 11:37 Sputum Sputum Culture - Preliminary Resulted Laboratory Tests Test 07/02/18 04:00 White Blood Count 6.0 K/UL (4.8-10.8) Red Blood Count 3.37 M/UL (4.20-5.40) L Hemoglobin 11.1 G/DL (12.0-16.0) L Hematocrit 33.9 % (37.0-47.0) L Mean Corpuscular Volume 101 FL (80-99) H Mean Corpuscular Hemoglobin 32.9 PG (27.0-31.0) H Mean Corpuscular Hemoglobin Concent 32.8 G/DL (32.0-36.0) Red Cell Distribution Width 12.9 % (11.6-14.8) Platelet Count 159 K/UL (150-450) Mean Platelet Volume 9.9 FL (6.5-10.1) Neutrophils (%) (Auto) 64.2 % (45.0-75.0) Lymphocytes (%) (Auto) 24.5 % (20.0-45.0) Monocytes (%) (Auto) 7.3 % (1.0-10.0) Eosinophils (%) (Auto) 2.9 % (0.0-3.0) Basophils (%) (Auto) 1.1 % (0.0-2.0) Sodium Level 139 MMOL/L (136-145) Potassium Level 3.4 MMOL/L (3.5-5.1) L Chloride Level 102 MMOL/L (98-107) Carbon Dioxide Level 38 MMOL/L (21-32) H Anion Gap -1 mmol/L (5-15) L Blood Urea Nitrogen 21 mg/dL (7-18) H Creatinine 0.5 MG/DL (0.55-1.30) L Estimat Glomerular Filtration Rate mL/min (>60) Glucose Level 162 MG/DL (74-106) H Calcium Level 8.5 MG/DL (8.5-10.1) Magnesium Level 1.9 MG/DL (1.8-2.4) Total Bilirubin 0.3 MG/DL (0.2-1.0) Aspartate Amino Transf (AST/SGOT) 20 U/L (15-37) Alanine Aminotransferase (ALT/SGPT) 16 U/L (12-78) Alkaline Phosphatase 105 U/L (46-116) Total Protein 6.6 G/DL (6.4-8.2) Albumin 2.4 G/DL (3.4-5.0) L Globulin 4.2 g/dL Albumin/Globulin Ratio 0.6 (1.0-2.7) L Current Medications Medications (Trade) Dose Ordered Sig/Singh Route PRN Reason Start Time Stop Time Status Last Admin Dose Admin Acetaminophen (Tylenol) 650 mg Q4H PRN ORAL Mild Pain/Temp > 100.5 07/01/18 07:03 07/28/18 07:02 Albuterol/ Ipratropium (Albuterol/ Ipratropium) 3 ml Q4H PRN HHN Shortness of Breath 07/01/18 07:03 07/05/18 07:02 Albuterol/ Ipratropium (Albuterol/ Ipratropium) 3 ml Q4HRT HHN 07/01/18 07:00 07/06/18 02:59 07/02/18 07:20 Amlodipine Besylate (Norvasc) 5 mg EVERY 12 HOURS ORAL 07/01/18 09:00 07/24/18 20:59 07/02/18 08:15 Aspirin (ASA) 81 mg DAILY GT 07/01/18 09:00 07/25/18 08:59 07/02/18 08:15 Atorvastatin Calcium (Lipitor) 10 mg BEDTIME GT 07/01/18 21:00 07/24/18 20:59 07/01/18 20:52 Carvedilol (Coreg) 12.5 mg EVERY 12 HOURS GT 07/01/18 09:00 07/28/18 08:59 07/02/18 08:15 Chlorhexidine Gluconate (Azra-Hex 2%) 1 applic DAILY@2000 TOPIC 07/01/18 20:00 07/25/18 19:59 07/01/18 20:51 Clonidine HCl (Catapres Tab) 0.1 mg Q6H PRN ORAL For High Blood Pressure 07/01/18 07:03 07/24/18 07:02 Dextrose 1,000 ml @ 75 mls/hr [id number] IV 07/01/18 14:30 07/31/18 14:29 07/02/18 03:56 Dextrose (Dextrose 50%) 25 ml STAT PRN IV Hypoglycemia 07/01/18 07:00 07/31/18 06:59 Dextrose (Dextrose 50%) 50 ml STAT PRN IV Hypoglycemia 07/01/18 07:00 07/31/18 06:59 Docusate Sodium (Colace) 100 mg DAILY GT 07/02/18 09:00 08/01/18 08:59 07/02/18 08:15 Furosemide (Lasix) 40 mg DAILY IV 07/01/18 09:00 07/31/18 08:59 07/02/18 08:16 Heparin Sodium (Porcine) (Heparin 5000 units/ml) 5,000 units EVERY 12 HOURS SUBQ 07/01/18 09:00 07/25/18 08:59 07/02/18 08:18 Insulin Aspart (NovoLOG) Q6HR SUBQ 07/01/18 07:00 07/25/18 06:59 Levetiracetam (Keppra) 400 mg Q12HR GT 07/01/18 09:00 07/24/18 20:59 07/02/18 08:15 Pantoprazole (Protonix) 40 mg EVERY 12 HOURS IVP 07/01/18 09:00 07/24/18 20:59 07/02/18 08:15 Phenytoin (Dilantin) 125 mg Q12HR GT 07/01/18 09:00 07/24/18 20:59 07/02/18 09:21 Gregory Albright MD Jul 02, 2018 09:30
[2018-07-02 12:00] VITALS: BP 147/69
[2018-07-02 15:58] VITALS: BP 160/76
--- NOTE | 2018-07-02 16:00 | Diagnostic Imaging Report ---
APPROVED REPORT CPT Code: 40693 Present Symptoms Comments: BILATERAL LEGS PAIN. BILATERAL: Imaging reveals a patent deep venous system bilaterally. There is no evidence of thrombus within the femoral, popliteal or tibial segments. The greater saphenous veins are also within normal limits. Doppler indicates normal spontaneous flow within these segments.
--- NOTE | 2018-07-02 16:43 | General Progress Note ---
Assessment/Plan Problem List: (1) Acute on chronic diastolic (congestive) heart failure ICD Codes: I50.33 - Acute on chronic diastolic (congestive) heart failure SNOMED: 63610327, 774445106 (2) Dyspnea ICD Codes: R06.00 - Dyspnea, unspecified SNOMED: 803898127 (3) Respiratory distress ICD Codes: R06.03 - Acute respiratory distress SNOMED: 368647546 (4) UTI (urinary tract infection) ICD Codes: N39.0 - Urinary tract infection, site not specified SNOMED: 42849281 Qualifiers: Qualified Codes: N39.0 - Urinary tract infection, site not specified (5) Hypoxia ICD Codes: R09.02 - Hypoxemia SNOMED: 353517719 (6) Pneumonia ICD Codes: J18.9 - Pneumonia, unspecified organism SNOMED: 449028453 Qualifiers: Qualified Codes: J18.9 - Pneumonia, unspecified organism Status: stable, progressing Assessment/Plan iv diuresis keep negative check sputum culture resp rx suctioning tube feeds monitor for aspiration monitor cxr resp status needs to be better optimized before dc Subjective ROS Limited/Unobtainable: Yes Constitutional: Reports: malaise, weakness HEENT: Reports: no symptoms Cardiovascular: Reports: no symptoms Respiratory: Reports: cough, shortness of breath, sputum Gastrointestinal/Abdominal: Reports: difficulty swallowing Genitourinary: Reports: no symptoms Neurologic/Psychiatric: Reports: pre-existing deficit, seizure Endocrine: Reports: no symptoms Hematologic/Lymphatic: Reports: anemia Allergies: Coded Allergies: PENICILLINS (Verified Allergy, Unknown, 02/04/18) SULFA (SULFONAMIDE ANTIBIOTICS) (Verified Allergy, Unknown, 02/04/18) SULFACETAMIDE (Unverified Allergy, Unknown, 06/24/18) All Systems: reviewed and negative except above Subjective continues to have sob, congestion, and dyspnea. suctioned deandre 2 hrs- clear/ white phlegm. no fevers. on iv lasix. intermittent tachypnea with difficult respirations per staff Objective Last 24 Hour Vital Signs Date Time Temp Pulse Resp B/P (MAP) Pulse Ox O2 Delivery O2 Flow Rate FiO2 07/02/18 16:00 Nasal Cannula 2.0 Nasal Cannula 2.0 07/02/18 15:58 97.5 69 20 160/76 (104) 96 97.5 69 07/02/18 15:16 76 20 100 Nasal Cannula 2.0 28 07/02/18 15:06 76 18 99 Nasal Cannula 2.0 28 07/02/18 12:00 Nasal Cannula 2.0 Nasal Cannula 2.0 07/02/18 12:00 69 07/02/18 12:00 97.3 67 20 147/69 (95) 93 97.3 67 07/02/18 11:48 62 18 100 Nasal Cannula 2.0 28 07/02/18 11:38 65 18 99 Nasal Cannula 2.0 28 07/02/18 08:27 77 07/02/18 08:15 75 153/80 07/02/18 08:15 75 153/80 07/02/18 08:00 Nasal Cannula 2.0 Nasal Cannula 2.0 07/02/18 08:00 96.8 75 22 153/80 (104) 100 96.8 75 07/02/18 07:30 66 22 100 Nasal Cannula 2.0 28 07/02/18 07:20 86 22 96 Nasal Cannula 2.0 28 07/02/18 07:19 Nasal Cannula 2.0 28 07/02/18 07:18 96 Nasal Cannula 2.0 28 07/02/18 04:00 65 07/02/18 03:57 Nasal Cannula 2.0 Nasal Cannula 2.0 07/02/18 03:55 97.4 66 20 152/83 (106) 100 97.4 57 07/02/18 03:50 64 18 98 Nasal Cannula 2.0 28 07/02/18 03:40 70 22 98 Nasal Cannula 2.0 28 07/02/18 00:00 Nasal Cannula 2.0 Nasal Cannula 2.0 07/02/18 00:00 98.5 57 20 123/65 (84) 100 98.5 57 07/01/18 23:49 60 07/01/18 23:49 66 18 99 Nasal Cannula 2.0 28 07/01/18 23:40 63 20 96 Nasal Cannula 2.0 28 07/01/18 20:54 63 142/71 07/01/18 20:51 63 142/71 07/01/18 20:02 61 07/01/18 20:00 Nasal Cannula 2.0 07/01/18 20:00 98.5 63 16 142/71 (94) 100 98.5 63 07/01/18 19:47 62 18 99 Nasal Cannula 2.0 28 07/01/18 19:39 97 Nasal Cannula 2.0 28 07/01/18 19:38 60 20 97 Nasal Cannula 2.0 28 07/01/18 19:37 Nasal Cannula 2.0 28 Intake and Output 07/01/18 07/02/18 19:00 07:00 Intake Total 910 ml 1480 ml Output Total 750 ml Balance 160 ml 1480 ml Intake Free Water 260 ml 180 ml IV Total 300 ml 900 ml Tube Feeding 350 ml 400 ml Output Urine Total 750 ml Laboratory Tests 07/02/18 04:00: White Blood Count 6.0, Red Blood Count 3.37L, Hemoglobin 11.1L, Hematocrit 33.9L , Mean Corpuscular Volume 101H, Mean Corpuscular Hemoglobin 32.9H, Mean Corpuscular Hemoglobin Concent 32.8, Red Cell Distribution Width 12.9, Platelet Count 159, Mean Platelet Volume 9.9, Neutrophils (%) (Auto) 64.2, Lymphocytes (% ) (Auto) 24.5, Monocytes (%) (Auto) 7.3, Eosinophils (%) (Auto) 2.9, Basophils ( %) (Auto) 1.1, Sodium Level 139, Potassium Level 3.4L, Chloride Level 102, Carbon Dioxide Level 38H, Anion Gap -1L, Blood Urea Nitrogen 21H, Creatinine 0.5L, Estimat Glomerular Filtration Rate , Glucose Level 162H, Calcium Level 8.5 , Magnesium Level 1.9, Total Bilirubin 0.3, Aspartate Amino Transf (AST/SGOT) 20 , Alanine Aminotransferase (ALT/SGPT) 16, Alkaline Phosphatase 105, Total Protein 6.6, Albumin 2.4L, Globulin 4.2, Albumin/Globulin Ratio 0.6L Height (Feet): 5 Height (Inches): 5.00 Weight (Pounds): 199 Objective General Appearance: WD/WN, alert Neck: supple Cardiovascular: regular rhythm Respiratory/Chest: rhonchi edwige Abdomen: normal bowel sounds, non tender, soft, no organomegaly Edema: no edema noted Arm (L), no edema noted Arm (R), no edema noted Leg (L), no edema noted Leg (R), no edema noted Pedal (L), no edema noted Pedal (R), no edema noted Generalized Neurologic: disoriented, unresponsive, aphasia Uomoto,Michael M. MD Jul 02, 2018 16:43
[2018-07-02 20:00] VITALS: BP 158/84
[2018-07-02] MEDS: Dyna-Hex 2% Top Sol 2oz TOPIC SCH (21:02)
[2018-07-03] VITALS: BP 131/48
[2018-07-03] MEDS: Albuterol/Ipratropium 3ml neb HHN SCH ×6 (03:42→23:40)
[2018-07-03 04:00] VITALS: BP 143/69
[2018-07-03] MEDS: NovoLOG Insulin Flexpen SUBQ SCH ×4 (06:00→18:00)
[2018-07-03 06:02] LABS: ALANINE AMINOTRANSFERASE 12 U/L (12-78); ALBUMIN 2.2 G/DL (3.4-5.0); ALBUMIN/GLOBULIN RATIO 0.6 (1.0-2.7); ALKALINE PHOSPHATASE 98 U/L (46-116); ANION GAP 3 mmol/L (5-15); ASPARTATE AMINO TRANSFERASE 16 U/L (15-37); BILIRUBIN,TOTAL 0.3 MG/DL (0.2-1.0); BLOOD UREA NITROGEN 16 mg/dL (7-18); CALCIUM 8.6 MG/DL (8.5-10.1); CARBON DIOXIDE 37 MMOL/L (21-32); CHLORIDE 104 MMOL/L (98-107); CREATININE 0.5 MG/DL (0.55-1.30); POTASSIUM 3.5 MMOL/L (3.5-5.1); SODIUM 144 MMOL/L (136-145)
[2018-07-03 08:00] VITALS: BP 143/68
[2018-07-03] MEDS: Aspirin Baby 81mg GT SCH (08:44)
[2018-07-03] MEDS: Carvedilol 6.25mg Tab GT SCH ×2 (08:45→20:46)
[2018-07-03] MEDS: levETIRAcetam 500mg/5ml Liquid GT SCH ×2 (08:46→20:45)
[2018-07-03] MEDS: Heparin 5000 units/ml inj SUBQ SCH ×2 (08:48→20:48)
[2018-07-03] MEDS: Phenytoin Susp 100mg/4ml GT SCH ×2 (08:49→20:46)
[2018-07-03] MEDS: Pantoprazole Inj IVP SCH ×2 (08:50→20:45)
[2018-07-03] MEDS: Docusate 100mg/10ml Liq GT SCH (08:50)
--- NOTE | 2018-07-03 08:54 | Pulmonology Progress Note ---
Assessment/Plan Assessment/Plan IMPRESSION: hypoxemia, possible mucus plugging, pneumonia, pleural effusions, respiratory insufficiency, protein-calorie malnutrition, dementia, aspiration, G-tube, prior history of CVA. PLAN keep negative respiratory care as is; no change needed oxygen as is monitoring for change aspiration precautions off steroids monitor imaging; for change dc planning to SNF noted impression, plan, and exam edited and reviewed in detail care discussed with RN Subjective ROS Limited/Unobtainable: Yes Allergies: Coded Allergies: PENICILLINS (Verified Allergy, Unknown, 02/04/18) SULFA (SULFONAMIDE ANTIBIOTICS) (Verified Allergy, Unknown, 02/04/18) SULFACETAMIDE (Unverified Allergy, Unknown, 06/24/18) Subjective care noted no distress findings discussed nursing notes reviewed Objective Last 24 Hour Vital Signs Date Time Temp Pulse Resp B/P (MAP) Pulse Ox O2 Delivery O2 Flow Rate FiO2 07/03/18 08:45 64 143/68 07/03/18 08:45 64 143/68 07/03/18 08:00 98.3 62 20 143/68 (93) 100 98.3 64 07/03/18 08:00 Nasal Cannula 2.0 Nasal Cannula 2.0 07/03/18 07:36 63 20 100 Nasal Cannula 2.0 28 07/03/18 07:25 Nasal Cannula 2.0 28 07/03/18 07:25 98 Nasal Cannula 2.0 28 07/03/18 07:24 64 18 100 Nasal Cannula 2.0 28 07/03/18 04:00 Nasal Cannula 2.0 Nasal Cannula 2.0 07/03/18 04:00 98.3 64 20 143/69 (93) 98 98.3 64 07/03/18 03:50 60 18 99 Nasal Cannula 2.0 28 07/03/18 03:41 60 18 98 Nasal Cannula 2.0 28 07/03/18 03:35 60 07/03/18 00:00 59 07/03/18 00:00 Nasal Cannula 2.0 Nasal Cannula 2.0 07/03/18 00:00 98.5 58 20 131/48 (75) 98 98.5 58 07/02/18 23:25 60 18 99 Nasal Cannula 2.0 28 07/02/18 23:15 61 18 98 Nasal Cannula 2.0 28 07/02/18 21:03 75 158/84 07/02/18 21:02 75 158/84 07/02/18 20:00 98.4 75 24 158/84 (108) 97 98.4 75 07/02/18 20:00 Nasal Cannula 2.0 Nasal Cannula 2.0 07/02/18 19:46 77 20 98 Nasal Cannula 2.0 28 07/02/18 19:36 70 20 97 Nasal Cannula 2.0 28 07/02/18 19:36 97 Nasal Cannula 2.0 28 07/02/18 19:36 Nasal Cannula 2.0 28 07/02/18 19:18 69 07/02/18 17:12 160/76 07/02/18 16:00 71 07/02/18 16:00 Nasal Cannula 2.0 Nasal Cannula 2.0 07/02/18 15:58 97.5 69 20 160/76 (104) 96 97.5 69 07/02/18 15:16 76 20 100 Nasal Cannula 2.0 28 07/02/18 15:06 76 18 99 Nasal Cannula 2.0 28 07/02/18 12:00 Nasal Cannula 2.0 Nasal Cannula 2.0 07/02/18 12:00 69 07/02/18 12:00 97.3 67 20 147/69 (95) 93 97.3 67 07/02/18 11:48 62 18 100 Nasal Cannula 2.0 28 07/02/18 11:38 65 18 99 Nasal Cannula 2.0 28 Intake and Output 07/02/18 07/03/18 19:00 07:00 Intake Total 1375 ml 700 ml Output Total 2050 ml 175 ml Balance -675 ml 525 ml Intake Free Water 300 ml 200 ml IV Total 675 ml Tube Feeding 400 ml 400 ml Other 100 ml Output Urine Total 2050 ml 175 ml # Bowel Movements 2 2 Objective GENERAL: A female who is chronically ill, advanced age. NAD HEENT: Negative. reduced gag NECK: Supple. LUNGS: no rhonchi. Moderate air entry reduced in both bases. same overall CARDIAC: S1 and S2. Regular rate and rhythm without murmurs, rubs, or gallops. ABDOMEN: Soft, nontender, nondistended. no HSM EXTREMITIES: No cyanosis or clubbing. Contractures noted overall. SKIN: Noted and reviewed. reviewed and edited Microbiology Date/Time Source Procedure Growth Status 07/01/18 11:37 Sputum Gram Stain - Final Resulted 07/01/18 11:37 Sputum Culture - Preliminary Gram Negative Bacillus 1 Gram Negative Bacillus 2 Usual Respiratory [place] Resulted Laboratory Tests 07/03/18 04:00: Sodium Level 144, Potassium Level 3.5, Chloride Level 104, Carbon Dioxide Level 37H, Anion Gap 3L, Blood Urea Nitrogen 16, Creatinine 0.5L, Estimat Glomerular Filtration Rate , Glucose Level 153H, Calcium Level 8.6, Total Bilirubin 0.3, Aspartate Amino Transf (AST/SGOT) 16, Alanine Aminotransferase (ALT/SGPT) 12, Alkaline Phosphatase 98, Total Protein 6.0L, Albumin 2.2L, Globulin 3.8, Albumin /Globulin Ratio 0.6L Current Medications Medications (Trade) Dose Ordered Sig/Singh Route PRN Reason Start Time Stop Time Status Last Admin Dose Admin Acetaminophen (Tylenol) 650 mg Q4H PRN ORAL Mild Pain/Temp > 100.5 07/01/18 07:03 07/28/18 07:02 Albuterol/ Ipratropium (Albuterol/ Ipratropium) 3 ml Q4H PRN HHN Shortness of Breath 07/01/18 07:03 07/05/18 07:02 Albuterol/ Ipratropium (Albuterol/ Ipratropium) 3 ml Q4HRT HHN 07/01/18 07:00 07/06/18 02:59 07/03/18 07:24 Amlodipine Besylate (Norvasc) 5 mg EVERY 12 HOURS ORAL 07/01/18 09:00 07/24/18 20:59 07/03/18 08:45 Aspirin (ASA) 81 mg DAILY GT 07/01/18 09:00 07/25/18 08:59 07/03/18 08:44 Atorvastatin Calcium (Lipitor) 10 mg BEDTIME GT 07/01/18 21:00 07/24/18 20:59 07/02/18 21:03 Carvedilol (Coreg) 12.5 mg EVERY 12 HOURS GT 07/01/18 09:00 07/28/18 08:59 07/03/18 08:45 Chlorhexidine Gluconate (Azra-Hex 2%) 1 applic DAILY@1999 TOPIC 07/01/18 20:00 07/25/18 19:59 07/02/18 21:02 Clonidine HCl (Catapres Tab) 0.1 mg Q6H PRN ORAL For High Blood Pressure 07/01/18 07:03 07/24/18 07:02 07/02/18 17:12 Dextrose (Dextrose 50%) 25 ml STAT PRN IV Hypoglycemia 07/01/18 07:00 07/31/18 06:59 Dextrose (Dextrose 50%) 50 ml STAT PRN IV Hypoglycemia 07/01/18 07:00 07/31/18 06:59 Docusate Sodium (Colace) 100 mg DAILY GT 07/02/18 09:00 08/01/18 08:59 07/02/18 08:15 Furosemide (Lasix) 40 mg DAILY IV 07/01/18 09:00 07/31/18 08:59 07/03/18 08:46 Heparin Sodium (Porcine) (Heparin 5000 units/ml) 5,000 units EVERY 12 HOURS SUBQ 07/01/18 09:00 07/25/18 08:59 07/03/18 08:48 Insulin Aspart (NovoLOG) Q6HR SUBQ 07/01/18 07:00 07/25/18 06:59 07/02/18 12:01 Levetiracetam (Keppra) 400 mg Q12HR GT 07/01/18 09:00 07/24/18 20:59 07/03/18 08:46 Pantoprazole (Protonix) 40 mg EVERY 12 HOURS IVP 07/01/18 09:00 07/24/18 20:59 07/03/18 08:50 Phenytoin (Dilantin) 125 mg Q12HR GT 07/01/18 09:00 07/24/18 20:59 07/03/18 08:49 Navdeep Mcgowan MD Jul 03, 2018 08:54
[2018-07-03 12:02] VITALS: BP 129/56
--- NOTE | 2018-07-03 12:35 | General Progress Note ---
Assessment/Plan Problem List: (1) Acute on chronic diastolic (congestive) heart failure ICD Codes: I50.33 - Acute on chronic diastolic (congestive) heart failure SNOMED: 35505971, 700060320 (2) Dyspnea ICD Codes: R06.00 - Dyspnea, unspecified SNOMED: 926914323 (3) Respiratory distress ICD Codes: R06.03 - Acute respiratory distress SNOMED: 139651632 (4) UTI (urinary tract infection) ICD Codes: N39.0 - Urinary tract infection, site not specified SNOMED: 69225219 Qualifiers: Qualified Codes: N39.0 - Urinary tract infection, site not specified (5) Hypoxia ICD Codes: R09.02 - Hypoxemia SNOMED: 303479309 (6) Pneumonia ICD Codes: J18.9 - Pneumonia, unspecified organism SNOMED: 156221553 Qualifiers: Qualified Codes: J18.9 - Pneumonia, unspecified organism Status: stable, progressing Assessment/Plan iv diuresis keep negative resp rx suctioning tube feeds monitor for aspiration monitor cxr replace lytes check mg level resp status needs to be better optimized before dc Subjective ROS Limited/Unobtainable: No Constitutional: Reports: malaise, weakness HEENT: Reports: no symptoms Cardiovascular: Reports: no symptoms Respiratory: Reports: cough, shortness of breath, sputum Gastrointestinal/Abdominal: Reports: difficulty swallowing Genitourinary: Reports: no symptoms Neurologic/Psychiatric: Reports: paresthesia, pre-existing deficit, seizure Endocrine: Reports: no symptoms Hematologic/Lymphatic: Reports: anemia Allergies: Coded Allergies: PENICILLINS (Verified Allergy, Unknown, 02/04/18) SULFA (SULFONAMIDE ANTIBIOTICS) (Verified Allergy, Unknown, 02/04/18) SULFACETAMIDE (Unverified Allergy, Unknown, 06/24/18) All Systems: reviewed and negative except above Subjective less congested today. still requires frequent suctioning and resp rx. on iv lasix. had Vtach this morning- 12 beats. k 3.5 Mg pending Objective Last 24 Hour Vital Signs Date Time Temp Pulse Resp B/P (MAP) Pulse Ox O2 Delivery O2 Flow Rate FiO2 07/03/18 12:02 98.1 60 18 129/56 (80) 100 98.1 60 07/03/18 12:01 Nasal Cannula 2.0 Nasal Cannula 2.0 07/03/18 10:44 61 18 100 Nasal Cannula 2.0 28 07/03/18 10:36 59 18 99 Nasal Cannula 2.0 28 07/03/18 08:45 64 143/68 07/03/18 08:45 64 143/68 07/03/18 08:00 62 07/03/18 08:00 98.3 62 20 143/68 (93) 100 98.3 64 07/03/18 08:00 Nasal Cannula 2.0 Nasal Cannula 2.0 07/03/18 07:36 63 20 100 Nasal Cannula 2.0 28 07/03/18 07:25 Nasal Cannula 2.0 28 07/03/18 07:25 98 Nasal Cannula 2.0 28 07/03/18 07:24 64 18 100 Nasal Cannula 2.0 28 07/03/18 04:00 Nasal Cannula 2.0 Nasal Cannula 2.0 07/03/18 04:00 98.3 64 20 143/69 (93) 98 98.3 64 07/03/18 03:50 60 18 99 Nasal Cannula 2.0 28 07/03/18 03:41 60 18 98 Nasal Cannula 2.0 28 07/03/18 03:35 60 07/03/18 00:00 59 07/03/18 00:00 Nasal Cannula 2.0 Nasal Cannula 2.0 07/03/18 00:00 98.5 58 20 131/48 (75) 98 98.5 58 07/02/18 23:25 60 18 99 Nasal Cannula 2.0 28 07/02/18 23:15 61 18 98 Nasal Cannula 2.0 28 07/02/18 21:03 75 158/84 07/02/18 21:02 75 158/84 07/02/18 20:00 98.4 75 24 158/84 (108) 97 98.4 75 07/02/18 20:00 Nasal Cannula 2.0 Nasal Cannula 2.0 07/02/18 19:46 77 20 98 Nasal Cannula 2.0 28 07/02/18 19:36 70 20 97 Nasal Cannula 2.0 28 07/02/18 19:36 97 Nasal Cannula 2.0 28 07/02/18 19:36 Nasal Cannula 2.0 28 07/02/18 19:18 69 07/02/18 17:12 160/76 07/02/18 16:00 71 07/02/18 16:00 Nasal Cannula 2.0 Nasal Cannula 2.0 07/02/18 15:58 97.5 69 20 160/76 (104) 96 97.5 69 07/02/18 15:16 76 20 100 Nasal Cannula 2.0 28 07/02/18 15:06 76 18 99 Nasal Cannula 2.0 28 Intake and Output 07/02/18 07/03/18 19:00 07:00 Intake Total 1375 ml 700 ml Output Total 2050 ml 175 ml Balance -675 ml 525 ml Intake Free Water 300 ml 200 ml IV Total 675 ml Tube Feeding 400 ml 400 ml Other 100 ml Output Urine Total 2050 ml 175 ml # Bowel Movements 2 2 Laboratory Tests 07/03/18 04:00: Sodium Level 144, Potassium Level 3.5, Chloride Level 104, Carbon Dioxide Level 37H, Anion Gap 3L, Blood Urea Nitrogen 16, Creatinine 0.5L, Estimat Glomerular Filtration Rate , Glucose Level 153H, Calcium Level 8.6, Total Bilirubin 0.3, Aspartate Amino Transf (AST/SGOT) 16, Alanine Aminotransferase (ALT/SGPT) 12, Alkaline Phosphatase 98, Total Protein 6.0L, Albumin 2.2L, Globulin 3.8, Albumin /Globulin Ratio 0.6L Height (Feet): 5 Height (Inches): 5.00 Weight (Pounds): 198 Objective General Appearance: WD/WN, alert Neck: supple Cardiovascular: regular rhythm Respiratory/Chest: rhonchi edwige Abdomen: normal bowel sounds, non tender, soft, no organomegaly Edema: no edema noted Arm (L), no edema noted Arm (R), no edema noted Leg (L), no edema noted Leg (R), no edema noted Pedal (L), no edema noted Pedal (R), no edema noted Generalized Neurologic: disoriented, unresponsive, aphasia Michael Sprague MD Jul 03, 2018 12:35
--- NOTE | 2018-07-03 13:29 | Infectious Diseases Prog Note ---
Assessment/Plan Assessment/Plan A: 1. E. coli UTI, treated 2. Pneumonia treated 3. Diabetes mellitus. 4. Hypertension. 5. Advanced dementia. 6. Altered mental status. 7.Positive blood culture, likely contamination P; observe off antibiotic Subjective ROS Limited/Unobtainable: Yes Respiratory: Reports: dry cough Allergies: Coded Allergies: PENICILLINS (Verified Allergy, Unknown, 02/04/18) SULFA (SULFONAMIDE ANTIBIOTICS) (Verified Allergy, Unknown, 02/04/18) SULFACETAMIDE (Unverified Allergy, Unknown, 06/24/18) Objective Vital Signs Last 24 Hour Vital Signs Date Time Temp Pulse Resp B/P (MAP) Pulse Ox O2 Delivery O2 Flow Rate FiO2 07/03/18 12:02 98.1 60 18 129/56 (80) 100 98.1 60 07/03/18 12:01 Nasal Cannula 2.0 Nasal Cannula 2.0 07/03/18 12:00 63 07/03/18 10:44 61 18 100 Nasal Cannula 2.0 28 07/03/18 10:36 59 18 99 Nasal Cannula 2.0 28 07/03/18 08:45 64 143/68 07/03/18 08:45 64 143/68 07/03/18 08:00 62 07/03/18 08:00 98.3 62 20 143/68 (93) 100 98.3 64 07/03/18 08:00 Nasal Cannula 2.0 Nasal Cannula 2.0 07/03/18 07:36 63 20 100 Nasal Cannula 2.0 28 07/03/18 07:25 Nasal Cannula 2.0 28 07/03/18 07:25 98 Nasal Cannula 2.0 07/03/18 07:24 64 18 100 Nasal Cannula 2.0 28 07/03/18 04:00 Nasal Cannula 2.0 Nasal Cannula 2.0 07/03/18 04:00 98.3 64 20 143/69 (93) 98 98.3 64 07/03/18 03:50 60 18 99 Nasal Cannula 2.0 28 07/03/18 03:41 60 18 98 Nasal Cannula 2.0 28 07/03/18 03:35 60 07/03/18 00:00 59 07/03/18 00:00 Nasal Cannula 2.0 Nasal Cannula 2.0 07/03/18 00:00 98.5 58 20 131/48 (75) 98 98.5 58 07/02/18 23:25 60 18 99 Nasal Cannula 2.0 28 07/02/18 23:15 61 18 98 Nasal Cannula 2.0 28 07/02/18 21:03 75 158/84 07/02/18 21:02 75 158/84 07/02/18 20:00 98.4 75 24 158/84 (108) 97 98.4 75 07/02/18 20:00 Nasal Cannula 2.0 Nasal Cannula 2.0 07/02/18 19:46 77 20 98 Nasal Cannula 2.0 28 07/02/18 19:36 70 20 97 Nasal Cannula 2.0 28 07/02/18 19:36 97 Nasal Cannula 2.0 28 07/02/18 19:36 Nasal Cannula 2.0 28 07/02/18 19:18 69 07/02/18 17:12 160/76 07/02/18 16:00 71 07/02/18 16:00 Nasal Cannula 2.0 Nasal Cannula 2.0 07/02/18 15:58 97.5 69 20 160/76 (104) 96 97.5 69 07/02/18 15:16 76 20 100 Nasal Cannula 2.0 28 07/02/18 15:06 76 18 99 Nasal Cannula 2.0 28 Height (Feet): 5 Height (Inches): 5.00 Weight (Pounds): 198 General Appearance: no acute distress HEENT: mucous membranes moist Respiratory/Chest: lungs clear Cardiovascular: normal rate, other - RIJ central line Abdomen: soft, non tender, other - GT feeding Extremities: no edema Neurologic/Psychiatric: unresponsiveness, aphasia Microbiology Date/Time Source Procedure Growth Status 07/01/18 11:37 Sputum Gram Stain - Final Resulted 07/01/18 11:37 Sputum Culture - Preliminary Gram Negative Bacillus 1 Gram Negative Bacillus 2 Usual Respiratory Minoo Resulted Laboratory Tests Test 07/03/18 04:00 Sodium Level 144 MMOL/L (136-145) Potassium Level 3.5 MMOL/L (3.5-5.1) Chloride Level 104 MMOL/L (98-107) Carbon Dioxide Level 37 MMOL/L (21-32) H Anion Gap 3 mmol/L (5-15) L Blood Urea Nitrogen 16 mg/dL (7-18) Creatinine 0.5 MG/DL (0.55-1.30) L Estimat Glomerular Filtration Rate mL/min (>60) Glucose Level 153 MG/DL (74-106) H Calcium Level 8.6 MG/DL (8.5-10.1) Magnesium Level 1.7 MG/DL (1.8-2.4) L Total Bilirubin 0.3 MG/DL (0.2-1.0) Aspartate Amino Transf (AST/SGOT) 16 U/L (15-37) Alanine Aminotransferase (ALT/SGPT) 12 U/L (12-78) Alkaline Phosphatase 98 U/L (46-116) Total Protein 6.0 G/DL (6.4-8.2) L Albumin 2.2 G/DL (3.4-5.0) L Globulin 3.8 g/dL Albumin/Globulin Ratio 0.6 (1.0-2.7) L Current Medications Medications (Trade) Dose Ordered Sig/Singh Route PRN Reason Start Time Stop Time Status Last Admin Dose Admin Acetaminophen (Tylenol) 650 mg Q4H PRN ORAL Mild Pain/Temp > 100.5 07/01/18 07:03 07/28/18 07:02 Albuterol/ Ipratropium (Albuterol/ Ipratropium) 3 ml Q4H PRN HHN Shortness of Breath 07/01/18 07:03 07/05/18 07:02 Albuterol/ Ipratropium (Albuterol/ Ipratropium) 3 ml Q4HRT HHN 07/01/18 07:00 07/06/18 02:59 07/03/18 10:36 Amlodipine Besylate (Norvasc) 5 mg EVERY 12 HOURS ORAL 07/01/18 09:00 07/24/18 20:59 07/03/18 08:45 Aspirin (ASA) 81 mg DAILY GT 07/01/18 09:00 07/25/18 08:59 07/03/18 08:44 Atorvastatin Calcium (Lipitor) 10 mg BEDTIME GT 07/01/18 21:00 07/24/18 20:59 07/02/18 21:03 Carvedilol (Coreg) 12.5 mg EVERY 12 HOURS GT 07/01/18 09:00 07/28/18 08:59 07/03/18 08:45 Chlorhexidine Gluconate (Azra-Hex 2%) 1 applic DAILY@1999 TOPIC 07/01/18 20:00 07/25/18 19:59 07/02/18 21:02 Clonidine HCl (Catapres Tab) 0.1 mg Q6H PRN ORAL For High Blood Pressure 07/01/18 07:03 07/24/18 07:02 07/02/18 17:12 Dextrose (Dextrose 50%) 25 ml STAT PRN IV Hypoglycemia 07/01/18 07:00 07/31/18 06:59 Dextrose (Dextrose 50%) 50 ml STAT PRN IV Hypoglycemia 07/01/18 07:00 07/31/18 06:59 Docusate Sodium (Colace) 100 mg DAILY GT 07/02/18 09:00 08/01/18 08:59 07/02/18 08:15 Furosemide (Lasix) 40 mg DAILY IV 07/01/18 09:00 07/31/18 08:59 07/03/18 08:46 Heparin Sodium (Porcine) (Heparin 5000 units/ml) 5,000 units EVERY 12 HOURS SUBQ 07/01/18 09:00 07/25/18 08:59 07/03/18 08:48 Insulin Aspart (NovoLOG) Q6HR SUBQ 07/01/18 07:00 07/25/18 06:59 07/02/18 12:01 Levetiracetam (Keppra) 400 mg Q12HR GT 07/01/18 09:00 07/24/18 20:59 07/03/18 08:46 Pantoprazole (Protonix) 40 mg EVERY 12 HOURS IVP 07/01/18 09:00 07/24/18 20:59 07/03/18 08:50 Phenytoin (Dilantin) 125 mg Q12HR GT 07/01/18 09:00 07/24/18 20:59 07/03/18 08:49 Potassium Chloride (K-Dur) 40 meq ONCE ORAL 07/03/18 12:45 07/03/18 13:45 07/03/18 12:43 Gregory Albright MD Jul 03, 2018 13:29
[2018-07-03 15:48] VITALS: BP 137/62
[2018-07-03 20:00] VITALS: BP 158/85
[2018-07-03] MEDS: Dyna-Hex 2% Top Sol 2oz TOPIC SCH (20:07)
[2018-07-04] VITALS: BP 155/75
[2018-07-04] MEDS: Albuterol/Ipratropium 3ml neb HHN SCH ×6 (03:52→23:38)
[2018-07-04 04:00] VITALS: BP 168/87
[2018-07-04 05:10] LABS: BASOPHILS % (AUTO) 1.3 % (0.0-2.0); EOSINOPHILS % (AUTO) 2.6 % (0.0-3.0); HEMATOCRIT 34.4 % (37.0-47.0); HEMOGLOBIN 11.7 G/DL (12.0-16.0); MEAN CORPUSCULAR VOLUME 100 FL (80-99); MONOCYTES % (AUTO) 7.6 % (1.0-10.0); NEUTROPHILS % (AUTO) 61.5 % (45.0-75.0); PLATELET COUNT 157 K/UL (150-450); RED BLOOD COUNT 3.45 M/UL (4.20-5.40); RED CELL DISTRIBUTION WIDTH 12.8 % (11.6-14.8); WHITE BLOOD COUNT 5.7 K/UL (4.8-10.8)
[2018-07-04 05:35] LABS: ANION GAP 2 mmol/L (5-15); BLOOD UREA NITROGEN 15 mg/dL (7-18); CARBON DIOXIDE 37 MMOL/L (21-32); CHLORIDE 104 MMOL/L (98-107); CREATININE 0.5 MG/DL (0.55-1.30); SODIUM 143 MMOL/L (136-145)
[2018-07-04] MEDS: NovoLOG Insulin Flexpen SUBQ SCH ×4 (06:00→18:00)
--- NOTE | 2018-07-04 07:28 | General Progress Note ---
Assessment/Plan Problem List: (1) Acute on chronic diastolic (congestive) heart failure ICD Codes: I50.33 - Acute on chronic diastolic (congestive) heart failure SNOMED: 60241200, 570055747 (2) Dyspnea ICD Codes: R06.00 - Dyspnea, unspecified SNOMED: 776026193 (3) Respiratory distress ICD Codes: R06.03 - Acute respiratory distress SNOMED: 332976468 (4) UTI (urinary tract infection) ICD Codes: N39.0 - Urinary tract infection, site not specified SNOMED: 49640954 Qualifiers: Qualified Codes: N39.0 - Urinary tract infection, site not specified (5) Hypoxia ICD Codes: R09.02 - Hypoxemia SNOMED: 737497734 (6) Pneumonia ICD Codes: J18.9 - Pneumonia, unspecified organism SNOMED: 591278191 Qualifiers: Qualified Codes: J18.9 - Pneumonia, unspecified organism Assessment/Plan iv diuresis keep negative resp rx suctioning tube feeds monitor for aspiration monitor cxr replace lytes BP meds advanced resp status needs to be better optimized before dc Subjective ROS Limited/Unobtainable: No Constitutional: Reports: malaise, weakness HEENT: Reports: no symptoms Cardiovascular: Reports: no symptoms Respiratory: Reports: cough, shortness of breath Gastrointestinal/Abdominal: Reports: difficulty swallowing Genitourinary: Reports: no symptoms Neurologic/Psychiatric: Reports: pre-existing deficit, seizure Endocrine: Reports: no symptoms Hematologic/Lymphatic: Reports: no symptoms Allergies: Coded Allergies: PENICILLINS (Verified Allergy, Unknown, 02/04/18) SULFA (SULFONAMIDE ANTIBIOTICS) (Verified Allergy, Unknown, 02/04/18) SULFACETAMIDE (Unverified Allergy, Unknown, 06/24/18) All Systems: reviewed and negative except above Subjective no events. breathing seems better. no fever or chills. remains on iv lasix. high BP Objective Last 24 Hour Vital Signs Date Time Temp Pulse Resp B/P (MAP) Pulse Ox O2 Delivery O2 Flow Rate FiO2 07/04/18 07:20 Nasal Cannula 2.0 07/04/18 07:20 Nasal Cannula 2.0 07/04/18 07:20 98 Nasal Cannula 2.0 07/04/18 07:17 63 20 93 Room Air 07/04/18 04:27 168/87 07/04/18 04:00 97.5 70 20 168/87 (114) 100 97.5 70 07/04/18 04:00 Nasal Cannula 2.0 Nasal Cannula 2.0 07/04/18 04:00 69 23 100 Nasal Cannula 2.0 28 07/04/18 03:52 67 18 98 Nasal Cannula 2.0 28 07/04/18 03:37 66 07/04/18 00:00 98.3 67 20 155/75 (101) 100 98.3 67 07/04/18 00:00 Nasal Cannula 2.0 Nasal Cannula 2.0 07/04/18 00:00 65 07/03/18 23:47 65 23 100 Nasal Cannula 2.0 28 07/03/18 23:42 64 18 98 Nasal Cannula 2.0 28 07/03/18 20:46 76 158/85 07/03/18 20:46 76 158/85 07/03/18 20:00 84 07/03/18 20:00 Nasal Cannula 2.0 Nasal Cannula 2.0 07/03/18 20:00 97.5 63 20 158/85 (109) 98 97.5 63 07/03/18 19:34 79 18 99 Nasal Cannula 2.0 28 07/03/18 19:18 Nasal Cannula 2.0 28 07/03/18 19:18 98 Nasal Cannula 2.0 28 07/03/18 19:16 73 18 97 Nasal Cannula 2.0 28 07/03/18 17:19 63 07/03/18 16:00 Nasal Cannula 2.0 Nasal Cannula 2.0 07/03/18 15:48 98.1 63 18 137/62 (87) 100 98.1 60 07/03/18 15:31 65 18 99 Nasal Cannula 2.0 28 07/03/18 15:22 63 18 100 Nasal Cannula 2.0 28 07/03/18 12:02 98.1 60 18 129/56 (80) 100 98.1 60 07/03/18 12:01 Nasal Cannula 2.0 Nasal Cannula 2.0 07/03/18 12:00 63 07/03/18 10:44 61 18 100 Nasal Cannula 2.0 28 07/03/18 10:36 59 18 99 Nasal Cannula 2.0 28 07/03/18 08:45 64 143/68 07/03/18 08:45 64 143/68 07/03/18 08:00 62 07/03/18 08:00 98.3 62 20 143/68 (93) 100 98.3 64 07/03/18 08:00 Nasal Cannula 2.0 Nasal Cannula 2.0 07/03/18 07:36 63 20 100 Nasal Cannula 2.0 28 Intake and Output 07/03/18 07/04/18 19:00 07:00 Intake Total 650 ml 400 ml Output Total 1300 ml 350 ml Balance -650 ml 50 ml Intake Free Water 150 ml IV Total 100 ml Tube Feeding 400 ml 400 ml Output Urine Total 1300 ml 350 ml # Bowel Movements 4 Laboratory Tests 07/04/18 04:10: White Blood Count 5.7, Red Blood Count 3.45L, Hemoglobin 11.7L, Hematocrit 34.4L , Mean Corpuscular Volume 100H, Mean Corpuscular Hemoglobin 33.9H, Mean Corpuscular Hemoglobin Concent 34.0, Red Cell Distribution Width 12.8, Platelet Count 157, Mean Platelet Volume 9.5, Neutrophils (%) (Auto) 61.5, Lymphocytes (% ) (Auto) 27.0, Monocytes (%) (Auto) 7.6, Eosinophils (%) (Auto) 2.6, Basophils ( %) (Auto) 1.3, Sodium Level 143, Potassium Level 4.0, Chloride Level 104, Carbon Dioxide Level 37H, Anion Gap 2L, Blood Urea Nitrogen 15, Creatinine 0.5L , Estimat Glomerular Filtration Rate , Glucose Level 169H, Calcium Level 9.0, Magnesium Level 2.0 Height (Feet): 5 Height (Inches): 5.00 Weight (Pounds): 198 Objective General Appearance: WD/WN, alert Neck: supple Cardiovascular: regular rhythm Respiratory/Chest: rhonchi edwige Abdomen: normal bowel sounds, non tender, soft, no organomegaly Edema: no edema noted Arm (L), no edema noted Arm (R), no edema noted Leg (L), no edema noted Leg (R), no edema noted Pedal (L), no edema noted Pedal (R), no edema noted Generalized Neurologic: disoriented, unresponsive, aphasia Michael Sprague MD Jul 04, 2018 07:28
[2018-07-04 08:00] VITALS: BP 147/76
[2018-07-04] MEDS: levETIRAcetam 500mg/5ml Liquid GT SCH ×2 (08:31→20:31)
[2018-07-04] MEDS: Phenytoin Susp 100mg/4ml GT SCH ×2 (08:32→20:32)
[2018-07-04] MEDS: Docusate 100mg/10ml Liq GT SCH (08:32)
[2018-07-04] MEDS: Pantoprazole Inj IVP SCH (08:33)
[2018-07-04] MEDS: Heparin 5000 units/ml inj SUBQ SCH ×2 (08:34→20:34)
[2018-07-04] MEDS: Carvedilol 6.25mg Tab GT SCH ×2 (08:38→20:15)
[2018-07-04] MEDS: Aspirin Baby 81mg GT SCH (08:39)
[2018-07-04] MEDS ORDERED: Losartan 50mg tab ORAL SCH (09:00)
--- NOTE | 2018-07-04 10:51 | Diagnostic Imaging Report ---
INDICATION: Cough COMPARISON: Chest x-ray dated 07/01/18 FINDINGS: Single frontal view demonstrates a prominent heart size. Stable right internal jugular catheter with tip in the proximal superior vena cava. Opacification of the left hemidiaphragm unchanged. Improved aeration of the right lower lung zone. The visualized osseous structures are within normal limits. IMPRESSION: Prominent heart size. Stable right internal jugular catheter with tip in the proximal superior vena cava. Opacification of the left hemidiaphragm unchanged. Improved aeration of the right lower lung zone.
[2018-07-04 11:45] VITALS: BP 142/67
[2018-07-04 16:00] VITALS: BP 148/60
--- NOTE | 2018-07-04 18:29 | Pulmonology Progress Note ---
Assessment/Plan Assessment/Plan Pulmonary Progress Note Assessment/Plan IMPRESSION: hypoxemia, possible mucus plugging, pneumonia, pleural effusions, respiratory insufficiency, protein-calorie malnutrition, dementia, aspiration, G-tube, prior history of CVA. PLAN keep negative respiratory care as is; no change needed oxygen as is monitoring for change aspiration precautions off steroids monitor imaging; for change dc planning to SNF noted impression, plan, and exam edited and reviewed in detail care discussed with RN Subjective ROS Limited/Unobtainable: Yes Allergies: Coded Allergies: PENICILLINS (Verified Allergy, Unknown, 02/04/18) SULFA (SULFONAMIDE ANTIBIOTICS) (Verified Allergy, Unknown, 02/04/18) SULFACETAMIDE (Unverified Allergy, Unknown, 06/24/18) Subjective care noted no distress findings discussed nursing notes reviewed Objective Last 24 Hour Vital Signs Date Time Temp Pulse Resp B/P (MAP) Pulse Ox O2 Delivery O2 Flow Rate FiO2 07/03/18 08:45 64 143/68 07/03/18 08:45 64 143/68 07/03/18 08:00 98.3 62 20 143/68 (93) 100 98.3 64 07/03/18 08:00 Nasal Cannula 2.0 Nasal Cannula 2.0 07/03/18 07:36 63 20 100 Nasal Cannula 2.0 28 07/03/18 07:25 Nasal Cannula 2.0 28 07/03/18 07:25 98 Nasal Cannula 2.0 28 07/03/18 07:24 64 18 100 Nasal Cannula 2.0 28 07/03/18 04:00 Nasal Cannula 2.0 Nasal Cannula 2.0 07/03/18 04:00 98.3 64 20 143/69 (93) 98 98.3 64 07/03/18 03:50 60 18 99 Nasal Cannula 2.0 28 07/03/18 03:41 60 18 98 Nasal Cannula 2.0 28 07/03/18 03:35 60 07/03/18 00:00 59 07/03/18 00:00 Nasal Cannula 2.0 Nasal Cannula 2.0 07/03/18 00:00 98.5 58 20 131/48 (75) 98 98.5 58 07/02/18 23:25 60 18 99 Nasal Cannula 2.0 28 07/02/18 23:15 61 18 98 Nasal Cannula 2.0 28 07/02/18 21:03 75 158/84 07/02/18 21:02 75 158/84 07/02/18 20:00 98.4 75 24 158/84 (108) 97 98.4 75 07/02/18 20:00 Nasal Cannula 2.0 Nasal Cannula 2.0 07/02/18 19:46 77 20 98 Nasal Cannula 2.0 28 07/02/18 19:36 70 20 97 Nasal Cannula 2.0 28 07/02/18 19:36 97 Nasal Cannula 2.0 28 07/02/18 19:36 Nasal Cannula 2.0 28 07/02/18 19:18 69 07/02/18 17:12 160/76 07/02/18 16:00 71 07/02/18 16:00 Nasal Cannula 2.0 Nasal Cannula 2.0 07/02/18 15:58 97.5 69 20 160/76 (104) 96 97.5 69 07/02/18 15:16 76 20 100 Nasal Cannula 2.0 28 07/02/18 15:06 76 18 99 Nasal Cannula 2.0 28 07/02/18 12:00 Nasal Cannula 2.0 Nasal Cannula 2.0 07/02/18 12:00 69 07/02/18 12:00 97.3 67 20 147/69 (95) 93 97.3 67 07/02/18 11:48 62 18 100 Nasal Cannula 2.0 28 07/02/18 11:38 65 18 99 Nasal Cannula 2.0 28 Intake and Output 07/02/18 07/03/18 19:00 07:00 Intake Total 1375 ml 700 ml Output Total 2050 ml 175 ml Balance -675 ml 525 ml Intake Free Water 300 ml 200 ml IV Total 675 ml Tube Feeding 400 ml 400 ml Other 100 ml Output Urine Total 2050 ml 175 ml # Bowel Movements 2 2 Objective GENERAL: A female who is chronically ill, advanced age. NAD. Aphasic HEENT: Negative. reduced gag NECK: Supple. LUNGS: no rhonchi. Moderate air entry reduced in both bases. same overall CARDIAC: S1 and S2. Regular rate and rhythm without murmurs, rubs, or gallops. ABDOMEN: Soft, nontender, nondistended. no HSM EXTREMITIES: No cyanosis or clubbing. Contractures noted overall. SKIN: Noted and reviewed. reviewed and edited Microbiology Date/Time Source Procedure Growth Status 07/01/18 11:37 Sputum Gram Stain - Final Resulted 07/01/18 11:37 Sputum Culture - Preliminary Gram Negative Bacillus 1 Gram Negative Bacillus 2 Usual Respiratory [place] Resulted Laboratory Tests 07/03/18 04:00: Sodium Level 144, Potassium Level 3.5, Chloride Level 104, Carbon Dioxide Level 37H, Anion Gap 3L, Blood Urea Nitrogen 16, Creatinine 0.5L, Estimat Glomerular Filtration Rate , Glucose Level 153H, Calcium Level 8.6, Total Bilirubin 0.3, Aspartate Amino Transf (AST/SGOT) 16, Alanine Aminotransferase (ALT/SGPT) 12, Alkaline Phosphatase 98, Total Protein 6.0L, Albumin 2.2L, Globulin 3.8, Albumin /Globulin Ratio 0.6L CXR: Central line, infiltrates LLL Current Medications Medications (Trade) Dose Ordered Sig/Singh Route PRN Reason Start Time Stop Time Status Last Admin Dose Admin Acetaminophen (Tylenol) 650 mg Q4H PRN ORAL Mild Pain/Temp > 100.5 07/01/18 07:03 07/28/18 07:02 Albuterol/ Ipratropium (Albuterol/ Ipratropium) 3 ml Q4H PRN HHN Shortness of Breath 07/01/18 07:03 07/05/18 07:02 Albuterol/ Ipratropium (Albuterol/ Ipratropium) 3 ml Q4HRT HHN 07/01/18 07:00 07/06/18 02:59 07/03/18 07:24 Amlodipine Besylate (Norvasc) 5 mg EVERY 12 HOURS ORAL 07/01/18 09:00 07/24/18 20:59 07/03/18 08:45 Aspirin (ASA) 81 mg DAILY GT 07/01/18 09:00 07/25/18 08:59 07/03/18 08:44 Atorvastatin Calcium (Lipitor) 10 mg BEDTIME GT 07/01/18 21:00 07/24/18 20:59 07/02/18 21:03 Carvedilol (Coreg) 12.5 mg EVERY 12 HOURS GT 07/01/18 09:00 07/28/18 08:59 07/03/18 08:45 Chlorhexidine Gluconate (Azra-Hex 2%) 1 applic DAILY@1999 TOPIC 07/01/18 20:00 07/25/18 19:59 07/02/18 21:02 Clonidine HCl (Catapres Tab) 0.1 mg Q6H PRN ORAL For High Blood Pressure 07/01/18 07:03 07/24/18 07:02 07/02/18 17:12 Dextrose (Dextrose 50%) 25 ml STAT PRN IV Hypoglycemia 07/01/18 07:00 07/31/18 06:59 Dextrose (Dextrose 50%) 50 ml STAT PRN IV Hypoglycemia 07/01/18 07:00 07/31/18 06:59 Docusate Sodium (Colace) 100 mg DAILY GT 07/02/18 09:00 08/01/18 08:59 07/02/18 08:15 Furosemide (Lasix) 40 mg DAILY IV 07/01/18 09:00 07/31/18 08:59 07/03/18 08:46 Heparin Sodium (Porcine) (Heparin 5000 units/ml) 5,000 units EVERY 12 HOURS SUBQ 07/01/18 09:00 07/25/18 08:59 07/03/18 08:48 Insulin Aspart (NovoLOG) Q6HR SUBQ 07/01/18 07:00 07/25/18 06:59 07/02/18 12:01 Levetiracetam (Keppra) 400 mg Q12HR GT 07/01/18 09:00 07/24/18 20:59 07/03/18 08:46 Pantoprazole (Protonix) 40 mg EVERY 12 HOURS IVP 07/01/18 09:00 07/24/18 20:59 07/03/18 08:50 Phenytoin (Dilantin) 125 mg Q12HR GT 07/01/18 09:00 07/24/18 20:59 07/03/18 08:49 Subjective ROS Limited/Unobtainable: Yes Allergies: Coded Allergies: PENICILLINS (Verified Allergy, Unknown, 02/04/18) SULFA (SULFONAMIDE ANTIBIOTICS) (Verified Allergy, Unknown, 02/04/18) SULFACETAMIDE (Unverified Allergy, Unknown, 06/24/18) Objective Last 24 Hour Vital Signs Date Time Temp Pulse Resp B/P (MAP) Pulse Ox O2 Delivery O2 Flow Rate FiO2 07/04/18 16:00 64 07/04/18 16:00 98.1 61 19 148/60 (89) 96 98.1 61 07/04/18 15:17 63 20 97 Nasal Cannula 2.0 28 07/04/18 15:05 64 20 100 Nasal Cannula 2.0 28 07/04/18 12:00 Nasal Cannula 2.0 Nasal Cannula 2.0 07/04/18 12:00 62 07/04/18 11:45 97.5 61 20 142/67 (92) 100 97.5 61 07/04/18 11:13 Nasal Cannula 2.0 28 07/04/18 11:10 65 20 97 Nasal Cannula 2.0 28 07/04/18 08:39 147/76 07/04/18 08:39 64 147/76 07/04/18 08:38 64 147/76 07/04/18 08:00 97.0 64 20 147/76 (99) 98 97.0 07/04/18 08:00 Nasal Cannula 2.0 Nasal Cannula 2.0 07/04/18 08:00 65 07/04/18 07:20 Nasal Cannula 2.0 28 07/04/18 07:20 Nasal Cannula 2.0 28 07/04/18 07:20 98 Nasal Cannula 2.0 28 07/04/18 07:17 63 20 93 Room Air 21 07/04/18 04:27 168/87 07/04/18 04:00 97.5 70 20 168/87 (114) 100 97.5 70 07/04/18 04:00 Nasal Cannula 2.0 Nasal Cannula 2.0 07/04/18 04:00 69 23 100 Nasal Cannula 2.0 07/04/18 03:52 67 18 98 Nasal Cannula 2.0 07/04/18 03:37 66 07/04/18 00:00 98.3 67 20 155/75 (101) 100 98.3 67 07/04/18 00:00 Nasal Cannula 2.0 Nasal Cannula 2.0 07/04/18 00:00 65 07/03/18 23:47 65 23 100 Nasal Cannula 2.0 28 07/03/18 23:42 64 18 98 Nasal Cannula 2.0 07/03/18 20:46 76 158/85 07/03/18 20:46 76 158/85 07/03/18 20:00 84 07/03/18 20:00 Nasal Cannula 2.0 Nasal Cannula 2.0 07/03/18 20:00 97.5 63 20 158/85 (109) 98 97.5 63 07/03/18 19:34 79 18 99 Nasal Cannula 2.0 28 07/03/18 19:18 Nasal Cannula 2.0 28 07/03/18 19:18 98 Nasal Cannula 2.0 28 07/03/18 19:16 73 18 97 Nasal Cannula 2.0 28 Intake and Output 07/03/18 07/04/18 19:00 07:00 Intake Total 650 ml 400 ml Output Total 1300 ml 350 ml Balance -650 ml 50 ml Intake Free Water 150 ml IV Total 100 ml Tube Feeding 400 ml 400 ml Output Urine Total 1300 ml 350 ml # Bowel Movements 4 Laboratory Tests 07/04/18 04:10: White Blood Count 5.7, Red Blood Count 3.45L, Hemoglobin 11.7L, Hematocrit 34.4L , Mean Corpuscular Volume 100H, Mean Corpuscular Hemoglobin 33.9H, Mean Corpuscular Hemoglobin Concent 34.0, Red Cell Distribution Width 12.8, Platelet Count 157, Mean Platelet Volume 9.5, Neutrophils (%) (Auto) 61.5, Lymphocytes (% ) (Auto) 27.0, Monocytes (%) (Auto) 7.6, Eosinophils (%) (Auto) 2.6, Basophils ( %) (Auto) 1.3, Sodium Level 143, Potassium Level 4.0, Chloride Level 104, Carbon Dioxide Level 37H, Anion Gap 2L, Blood Urea Nitrogen 15, Creatinine 0.5L , Estimat Glomerular Filtration Rate , Glucose Level 169H, Calcium Level 9.0, Magnesium Level 2.0 Current Medications Medications (Trade) Dose Ordered Sig/Singh Route PRN Reason Start Time Stop Time Status Last Admin Dose Admin Acetaminophen (Tylenol) 650 mg Q4H PRN ORAL Mild Pain/Temp > 100.5 07/01/18 07:03 07/28/18 07:02 07/04/18 04:24 Albuterol/ Ipratropium (Albuterol/ Ipratropium) 3 ml Q4H PRN HHN Shortness of Breath 07/01/18 07:03 07/05/18 07:02 Albuterol/ Ipratropium (Albuterol/ Ipratropium) 3 ml Q4HRT HHN 07/01/18 07:00 07/06/18 02:59 07/04/18 15:04 Amlodipine Besylate (Norvasc) 5 mg EVERY 12 HOURS ORAL 07/01/18 09:00 07/24/18 20:59 07/04/18 08:39 Aspirin (ASA) 81 mg DAILY GT 07/01/18 09:00 07/25/18 08:59 07/04/18 08:39 Atorvastatin Calcium (Lipitor) 10 mg BEDTIME GT 07/01/18 21:00 07/24/18 20:59 07/03/18 20:45 Carvedilol (Coreg) 12.5 mg EVERY 12 HOURS GT 07/01/18 09:00 07/28/18 08:59 07/04/18 08:38 Chlorhexidine Gluconate (Azra-Hex 2%) 1 applic DAILY@1999 TOPIC 07/01/18 20:00 07/25/18 19:59 07/03/18 20:07 Clonidine HCl (Catapres Tab) 0.1 mg Q6H PRN ORAL For High Blood Pressure 07/01/18 07:03 07/24/18 07:02 07/04/18 04:27 Dextrose (Dextrose 50%) 25 ml STAT PRN IV Hypoglycemia 07/01/18 07:00 07/31/18 06:59 Dextrose (Dextrose 50%) 50 ml STAT PRN IV Hypoglycemia 07/01/18 07:00 07/31/18 06:59 Docusate Sodium (Colace) 100 mg DAILY GT 07/02/18 09:00 08/01/18 08:59 07/04/18 08:32 Furosemide (Lasix) 40 mg DAILY IV 07/01/18 09:00 07/31/18 08:59 07/04/18 08:33 Heparin Sodium (Porcine) (Heparin 5000 units/ml) 5,000 units EVERY 12 HOURS SUBQ 07/01/18 09:00 07/25/18 08:59 07/04/18 08:34 Insulin Aspart (NovoLOG) Q6HR SUBQ 07/01/18 07:00 07/25/18 06:59 07/02/18 12:01 Lansoprazole (Prevacid) 30 mg Q12HR GT 07/04/18 21:00 08/03/18 20:59 Levetiracetam (Keppra) 400 mg Q12HR GT 07/01/18 09:00 07/24/18 20:59 07/04/18 08:31 Losartan Potassium (Cozaar) 50 mg DAILY ORAL 07/04/18 09:00 08/03/18 08:59 07/04/18 08:39 Phenytoin (Dilantin) 125 mg Q12HR GT 07/01/18 09:00 07/24/18 20:59 07/04/18 08:32 Brayan Contreras MD Jul 04, 2018 18:29
[2018-07-04] MEDS ORDERED: Sterile Water Irrig 1000ml IRRIG ONE (18:30)
[2018-07-04] MEDS ORDERED: Tubing IV Secondary IV ONE (18:30)
[2018-07-04] MEDS ORDERED: NS 275ml ONE (18:30)
[2018-07-04 20:00] VITALS: BP 144/73
[2018-07-04] MEDS: Dyna-Hex 2% Top Sol 2oz TOPIC SCH (20:14)
--- NOTE | 2018-07-04 23:45 | Progress Note ---
DATE: 07/02/2018 CARDIOLOGY PROGRESS NOTE Late entry for 07/02/2018 SUBJECTIVE: The patient was seen and evaluated and noted to continue to have shortness of breath and congestion, requiring asouln-vvs-hyucp suctioning. She has white phlegm. No fevers or chills noted. Diuresis is ongoing. She has difficulty with her respirations frequently according to staff members. She has required BiPAP support. OBJECTIVE: VITAL SIGNS: Blood pressure 160/76, pulse 69, respiratory rate 20, and afebrile. LUNGS: Coarse breath sounds with scattered rhonchi. HEART: Irregularly irregular rhythm. Normal S1 and S2. ABDOMEN: Soft. EXTREMITIES: Trace edema. LABORATORY DATA: White count 6 and hemoglobin 11. Sodium 139, potassium 3.4, BUN 21, creatinine 0.5, and bicarbonate 38. Albumin 2.4. Chest x-ray yesterday revealed bilateral effusions with interstitial edema and airspace disease without change. IMPRESSION: 1. Pneumonia. 2. Acute respiratory insufficiency. 3. Hypoxia. 4. Acute on chronic respiratory acidosis. 5. Acute on chronic diastolic congestive heart failure. 6. Paroxysmal atrial fibrillation. PLAN: 1. Antibiotics. 2. Respiratory hygiene. 3. BiPAP support as needed. 4. Diuresis. 5. Antimicrobials. 6. DVT and stress ulcer prophylaxis. 7. Remains high risk. Brayan Card M.D. DR: DONYA JOB#: [id number] CC:
--- NOTE | 2018-07-04 23:45 | Progress Note ---
DATE: 07/03/2018 Cardiology Progress Note This is a late entry. SUBJECTIVE: The patient continues to have respiratory distress, although slightly improved today. She still is requiring suctioning frequently and remains on IV diuretic. Monitor reveals sinus with episodes of atrial fibrillation and nonsustained ventricular tachycardia. OBJECTIVE: VITAL SIGNS: Blood pressure up to 160/76 with labile heart rate. LUNGS: Coarse breath sounds. Scattered rhonchi. HEART: Regular rhythm. Rapid rate. Normal S1 and S2. ABDOMEN: Soft. EXTREMITIES: Trace edema. LABORATORY DATA: Potassium 3.5 and magnesium 1.7. IMPRESSION: 1. Healthcare acquired pneumonia. 2. Paroxysmal ventricular tachycardia. 3. Acute on chronic diastolic congestive heart failure. 4. Low potassium. 5. Low magnesium. 6. Dysphagia. 7. Pleural effusion. PLAN: 1. Antimicrobials. 2. Respiratory hygiene. 3. Continue diuresis. 4. Intravenous magnesium. 5. Potassium repletion. 6. Add losartan for improve blood pressure management. 7. Consider beta-sridhar if no active bronchospasm noted. Brayan Card M.D. DR: DEVIN JOB#: [id number] CC:
[2018-07-05] VITALS: BP 160/79
--- NOTE | 2018-07-05 00:30 | Progress Note ---
DATE: 07/04/2018 CARDIOLOGY PROGRESS NOTE SUBJECTIVE: The patient remains congested, somewhat improving, however, over the past 2 days, blood pressure remains elevated at times. Monitored sinus with paroxysms with atrial and ventricular ectopy. OBJECTIVE: VITAL SIGNS: Blood pressure 168/87, pulse 63, respiratory rate 20, and afebrile. LUNGS: Coarse breath sounds. Scattered rhonchi. HEART: Regular rhythm and rate. Normal S1, S2. ABDOMEN: Soft. EXTREMITIES: Trace edema. LABORATORY AND DIAGNOSTIC DATA: Chest x-ray today reveals opacification of the left hemidiaphragm with right lower lobe lung improved aeration. IMPRESSION: 1. Needs additional respiratory hygiene. 2. Possible mucous plugging and possible effusion. 3. Continue diuresis. 4. Titrate anti-hypertensives. 5. Maintain beta-blockade and replace electrolytes based on clinical parameters. 6. The patient remains high risk. Brayan Card M.D. DR: MADHURI JOB#: [id number] CC:
[2018-07-05 04:00] VITALS: BP 152/74
[2018-07-05] MEDS: Albuterol/Ipratropium 3ml neb HHN SCH ×5 (05:12→23:03)
[2018-07-05] MEDS: NovoLOG Insulin Flexpen SUBQ SCH ×4 (06:00→17:12)
[2018-07-05] MEDS ORDERED: Albuterol/Ipratropium 3ml neb HHN SCH (07:45)
[2018-07-05 08:00] VITALS: BP 149/66
[2018-07-05] MEDS: Carvedilol 6.25mg Tab GT SCH ×2 (09:24→21:55)
[2018-07-05] MEDS: Docusate 100mg/10ml Liq GT SCH (09:24)
[2018-07-05] MEDS: Phenytoin Susp 100mg/4ml GT SCH ×2 (09:24→21:57)
[2018-07-05] MEDS: Aspirin Baby 81mg GT SCH (09:25)
[2018-07-05] MEDS: levETIRAcetam 500mg/5ml Liquid GT SCH ×2 (09:25→21:57)
[2018-07-05] MEDS: Losartan 50mg tab ORAL SCH (09:26)
[2018-07-05] MEDS: Heparin 5000 units/ml inj SUBQ SCH ×2 (09:27→21:00)
[2018-07-05] MEDS ORDERED: Acetylcysteine 20% Soln 4ml HHN SCH (11:00)
--- NOTE | 2018-07-05 11:07 | General Progress Note ---
Assessment/Plan Problem List: (1) Acute on chronic diastolic (congestive) heart failure ICD Codes: I50.33 - Acute on chronic diastolic (congestive) heart failure SNOMED: 42317974, 710655112 (2) Dyspnea ICD Codes: R06.00 - Dyspnea, unspecified SNOMED: 589484564 (3) Respiratory distress ICD Codes: R06.03 - Acute respiratory distress SNOMED: 841759684 (4) UTI (urinary tract infection) ICD Codes: N39.0 - Urinary tract infection, site not specified SNOMED: 96021186 Qualifiers: Qualified Codes: N39.0 - Urinary tract infection, site not specified (5) Hypoxia ICD Codes: R09.02 - Hypoxemia SNOMED: 424458360 (6) Pneumonia ICD Codes: J18.9 - Pneumonia, unspecified organism SNOMED: 627916333 Qualifiers: Qualified Codes: J18.9 - Pneumonia, unspecified organism Status: stable, progressing Assessment/Plan iv diuresis keep negative resp rx suctioning chest pt thoracentesis per pulm tube feeds monitor for aspiration monitor cxr replace lytes BP meds advanced resp status needs to be better optimized before dc Subjective ROS Limited/Unobtainable: No Constitutional: Reports: malaise, weakness HEENT: Reports: no symptoms Cardiovascular: Reports: no symptoms Respiratory: Reports: cough, shortness of breath Gastrointestinal/Abdominal: Reports: no symptoms Genitourinary: Reports: no symptoms Neurologic/Psychiatric: Reports: pre-existing deficit, seizure Endocrine: Reports: no symptoms Hematologic/Lymphatic: Reports: anemia Allergies: Coded Allergies: PENICILLINS (Verified Allergy, Unknown, 02/04/18) SULFA (SULFONAMIDE ANTIBIOTICS) (Verified Allergy, Unknown, 02/04/18) SULFACETAMIDE (Unverified Allergy, Unknown, 06/24/18) All Systems: reviewed and negative except above Subjective stable. still with sob. white on left hemithorax on cxr on feeds awake no distress. orders reviewed Objective Last 24 Hour Vital Signs Date Time Temp Pulse Resp B/P (MAP) Pulse Ox O2 Delivery O2 Flow Rate FiO2 07/05/18 09:26 149/66 07/05/18 09:24 65 149/66 07/05/18 09:23 65 149/66 07/05/18 08:00 Nasal Cannula 2.0 28 07/05/18 08:00 98 Nasal Cannula 2.0 28 07/05/18 08:00 98.1 64 22 149/66 (93) 100 98.1 64 07/05/18 08:00 65 07/05/18 08:00 65 20 100 Nasal Cannula 2.0 28 07/05/18 08:00 60 20 96 Nasal Cannula 2.0 28 07/05/18 08:00 Nasal Cannula 2.0 Nasal Cannula 2.0 07/05/18 04:00 Nasal Cannula 2.0 Nasal Cannula 2.0 07/05/18 04:00 98.2 61 20 152/74 (100) 100 98.2 61 07/05/18 04:00 63 07/05/18 03:30 61 20 98 Nasal Cannula 2.0 28 07/05/18 03:30 64 20 100 Nasal Cannula 2.0 28 07/05/18 00:00 98.6 59 24 160/79 (106) 100 98.6 59 07/05/18 00:00 Nasal Cannula 2.0 Nasal Cannula 2.0 07/05/18 00:00 61 07/04/18 23:39 66 20 100 Nasal Cannula 2.0 28 07/04/18 23:38 62 20 99 Nasal Cannula 2.0 28 07/04/18 20:17 66 144/73 07/04/18 20:15 66 144/60 07/04/18 20:00 70 20 98 Nasal Cannula 2.0 28 07/04/18 20:00 68 07/04/18 20:00 98 Nasal Cannula 2.0 28 07/04/18 20:00 Nasal Cannula 2.0 Nasal Cannula 2.0 07/04/18 20:00 Nasal Cannula 2.0 28 07/04/18 20:00 72 20 100 Nasal Cannula 2.0 28 07/04/18 20:00 96.8 66 26 144/73 (96) 95 96.8 66 07/04/18 16:00 Nasal Cannula 2.0 Nasal Cannula 2.0 07/04/18 16:00 64 07/04/18 16:00 98.1 61 19 148/60 (89) 96 98.1 61 07/04/18 15:17 63 20 97 Nasal Cannula 2.0 28 07/04/18 15:05 64 20 100 Nasal Cannula 2.0 28 07/04/18 12:00 Nasal Cannula 2.0 Nasal Cannula 2.0 07/04/18 12:00 62 07/04/18 11:45 97.5 61 20 142/67 (92) 100 97.5 61 07/04/18 11:13 Nasal Cannula 2.0 28 07/04/18 11:10 65 20 97 Nasal Cannula 2.0 28 Intake and Output 07/04/18 07/05/18 19:00 07:00 Intake Total 920 ml 550 ml Output Total 1300 ml 300 ml Balance -380 ml 250 ml Intake Free Water 200 ml 200 ml Tube Feeding 600 ml 350 ml Other 120 ml Output Urine Total 1300 ml 300 ml Height (Feet): 5 Height (Inches): 5.00 Weight (Pounds): 200 Objective General Appearance: WD/WN, alert Neck: supple Cardiovascular: regular rhythm Respiratory/Chest: rhonchi edwige Abdomen: normal bowel sounds, non tender, soft, no organomegaly Edema: no edema noted Arm (L), no edema noted Arm (R), no edema noted Leg (L), no edema noted Leg (R), no edema noted Pedal (L), no edema noted Pedal (R), no edema noted Generalized Neurologic: disoriented, unresponsive, aphasia Michael Sprague MD Jul 05, 2018 11:07
--- NOTE | 2018-07-05 11:13 | Infectious Diseases Prog Note ---
Assessment/Plan Assessment/Plan A: 1. E. coli UTI, treated 2. Pneumonia treated 3. Diabetes mellitus. 4. Hypertension. 5. Advanced dementia. 6. Altered mental status. 7.Positive blood culture, likely contamination P; observe off antibiotic Subjective ROS Limited/Unobtainable: Yes Allergies: Coded Allergies: PENICILLINS (Verified Allergy, Unknown, 02/04/18) SULFA (SULFONAMIDE ANTIBIOTICS) (Verified Allergy, Unknown, 02/04/18) SULFACETAMIDE (Unverified Allergy, Unknown, 06/24/18) Objective Vital Signs Last 24 Hour Vital Signs Date Time Temp Pulse Resp B/P (MAP) Pulse Ox O2 Delivery O2 Flow Rate FiO2 07/05/18 09:26 149/66 07/05/18 09:24 65 149/66 07/05/18 09:23 65 149/66 07/05/18 08:00 Nasal Cannula 2.0 28 07/05/18 08:00 98 Nasal Cannula 2.0 28 07/05/18 08:00 98.1 64 22 149/66 (93) 100 98.1 64 07/05/18 08:00 65 07/05/18 08:00 65 20 100 Nasal Cannula 2.0 28 07/05/18 08:00 60 20 96 Nasal Cannula 2.0 28 07/05/18 08:00 Nasal Cannula 2.0 Nasal Cannula 2.0 07/05/18 04:00 Nasal Cannula 2.0 Nasal Cannula 2.0 07/05/18 04:00 98.2 61 20 152/74 (100) 100 98.2 61 07/05/18 04:00 63 07/05/18 03:30 61 20 98 Nasal Cannula 2.0 28 07/05/18 03:30 64 20 100 Nasal Cannula 2.0 28 07/05/18 00:00 98.6 59 24 160/79 (106) 100 98.6 59 07/05/18 00:00 Nasal Cannula 2.0 Nasal Cannula 2.0 07/05/18 00:00 61 07/04/18 23:39 66 20 100 Nasal Cannula 2.0 28 07/04/18 23:38 62 20 99 Nasal Cannula 2.0 28 07/04/18 20:17 66 144/73 07/04/18 20:15 66 144/60 07/04/18 20:00 70 20 98 Nasal Cannula 2.0 28 07/04/18 20:00 68 07/04/18 20:00 98 Nasal Cannula 2.0 28 07/04/18 20:00 Nasal Cannula 2.0 Nasal Cannula 2.0 07/04/18 20:00 Nasal Cannula 2.0 28 07/04/18 20:00 72 20 100 Nasal Cannula 2.0 28 07/04/18 20:00 96.8 66 26 144/73 (96) 95 96.8 66 07/04/18 16:00 Nasal Cannula 2.0 Nasal Cannula 2.0 07/04/18 16:00 64 07/04/18 16:00 98.1 61 19 148/60 (89) 96 98.1 61 07/04/18 15:17 63 20 97 Nasal Cannula 2.0 28 07/04/18 15:05 64 20 100 Nasal Cannula 2.0 28 07/04/18 12:00 Nasal Cannula 2.0 Nasal Cannula 2.0 07/04/18 12:00 62 07/04/18 11:45 97.5 61 20 142/67 (92) 100 97.5 61 07/04/18 11:13 Nasal Cannula 2.0 28 Height (Feet): 5 Height (Inches): 5.00 Weight (Pounds): 200 HEENT: mucous membranes moist Respiratory/Chest: lungs clear Cardiovascular: normal rate, other - RIJ central line Abdomen: soft, non tender, other - GT feeding Extremities: no edema Neurologic/Psychiatric: unresponsiveness Current Medications Medications (Trade) Dose Ordered Sig/Singh Route PRN Reason Start Time Stop Time Status Last Admin Dose Admin Acetaminophen (Tylenol) 650 mg Q4H PRN ORAL Mild Pain/Temp > 100.5 07/05/18 07:45 07/28/18 07:44 Acetylcysteine (Mucomyst) 200 mg Q4HRT [facility] 07/05/18 14:00 08/04/18 10:59 UNV Albuterol/ Ipratropium (Albuterol/ Ipratropium) 3 ml Q4HRT [facility] 07/05/18 11:00 07/06/18 02:59 Amlodipine Besylate (Norvasc) 5 mg EVERY 12 HOURS ORAL 07/05/18 09:00 07/24/18 20:59 07/05/18 09:23 Aspirin (ASA) 81 mg DAILY GT 07/05/18 09:00 07/25/18 08:59 07/05/18 09:25 Atorvastatin Calcium (Lipitor) 10 mg BEDTIME GT 07/05/18 21:00 07/24/18 20:59 Carvedilol (Coreg) 12.5 mg EVERY 12 HOURS GT 07/05/18 09:00 07/28/18 08:59 07/05/18 09:24 Chlorhexidine Gluconate (Azra-Hex 2%) 1 applic DAILY@2000 TOPIC 07/05/18 20:00 07/25/18 19:59 Clonidine HCl (Catapres Tab) 0.1 mg Q6H PRN ORAL For High Blood Pressure 07/05/18 07:45 07/24/18 07:44 Dextrose (Dextrose 50%) 25 ml STAT PRN IV Hypoglycemia 07/05/18 07:45 08/04/18 07:44 Dextrose (Dextrose 50%) 50 ml STAT PRN IV Hypoglycemia 07/05/18 07:45 08/04/18 07:44 Docusate Sodium (Colace) 100 mg DAILY GT 07/05/18 09:00 08/01/18 08:59 07/05/18 09:24 Furosemide (Lasix) 40 mg DAILY IV 07/05/18 09:00 07/31/18 08:59 07/05/18 09:26 Heparin Sodium (Porcine) (Heparin 5000 units/ml) 5,000 units EVERY 12 HOURS SUBQ 07/05/18 09:00 07/25/18 08:59 07/05/18 09:27 Insulin Aspart (NovoLOG) Q6HR SUBQ 07/05/18 12:00 07/25/18 06:59 Ipratropium [place] (Atrovent) 500 mcg Q4H PRN HHN Shortness of Breath 07/05/18 10:00 07/10/18 09:59 Lansoprazole (Prevacid) 30 mg Q12HR GT 07/05/18 09:00 08/03/18 20:59 07/05/18 09:25 Levetiracetam (Keppra) 400 mg Q12HR GT 07/05/18 09:00 07/24/18 20:59 07/05/18 09:25 Losartan Potassium (Cozaar) 50 mg DAILY ORAL 07/05/18 09:00 08/03/18 08:59 07/05/18 09:26 Phenytoin (Dilantin) 125 mg Q12HR GT 07/05/18 09:00 07/24/18 20:59 07/05/18 09:24 Gregory Albright MD Jul 05, 2018 11:13
[2018-07-05 12:00] VITALS: BP 138/64
[2018-07-05] MEDS: Acetylcysteine 20% Soln 4ml HHN SCH ×3 (15:30→23:04)
[2018-07-05 16:00] VITALS: BP 141/69
--- NOTE | 2018-07-05 17:47 | Pulmonology Progress Note ---
Assessment/Plan Assessment/Plan Pulmonary Progress Note Assessment/Plan IMPRESSION: hypoxemia, possible mucus plugging, pneumonia, pleural effusions, respiratory insufficiency, protein-calorie malnutrition, dementia, aspiration, G-tube, prior history of CVA. Persistant opacification left hemigthorax, CPT/HHN with mucomyst jannetderd, for Thoracentesis in the AM PLAN keep negative , Thoracentesis in AM respiratory care as is; CPT/HHN oxygen as is monitoring for change aspiration precautions off steroids monitor imaging; for change dc planning to SNF noted impression, plan, and exam edited and reviewed in detail care discussed with RN Subjective ROS Limited/Unobtainable: Yes Allergies: Coded Allergies: PENICILLINS (Verified Allergy, Unknown, 02/04/18) SULFA (SULFONAMIDE ANTIBIOTICS) (Verified Allergy, Unknown, 02/04/18) SULFACETAMIDE (Unverified Allergy, Unknown, 06/24/18) Subjective care noted no distress findings discussed nursing notes reviewed Objective Last 24 Hour Vital Signs Date Time Temp Pulse Resp B/P (MAP) Pulse Ox O2 Delivery O2 Flow Rate FiO2 07/03/18 08:45 64 143/68 07/03/18 08:45 64 143/68 07/03/18 08:00 98.3 62 20 143/68 (93) 100 98.3 64 07/03/18 08:00 Nasal Cannula 2.0 Nasal Cannula 2.0 07/03/18 07:36 63 20 100 Nasal Cannula 2.0 28 07/03/18 07:25 Nasal Cannula 2.0 28 07/03/18 07:25 98 Nasal Cannula 2.0 28 07/03/18 07:24 64 18 100 Nasal Cannula 2.0 28 07/03/18 04:00 Nasal Cannula 2.0 Nasal Cannula 2.0 07/03/18 04:00 98.3 64 20 143/69 (93) 98 98.3 64 07/03/18 03:50 60 18 99 Nasal Cannula 2.0 28 07/03/18 03:41 60 18 98 Nasal Cannula 2.0 28 07/03/18 03:35 60 07/03/18 00:00 59 07/03/18 00:00 Nasal Cannula 2.0 Nasal Cannula 2.0 07/03/18 00:00 98.5 58 20 131/48 (75) 98 98.5 58 07/02/18 23:25 60 18 99 Nasal Cannula 2.0 28 07/02/18 23:15 61 18 98 Nasal Cannula 2.0 28 07/02/18 21:03 75 158/84 07/02/18 21:02 75 158/84 07/02/18 20:00 98.4 75 24 158/84 (108) 97 98.4 75 07/02/18 20:00 Nasal Cannula 2.0 Nasal Cannula 2.0 07/02/18 19:46 77 20 98 Nasal Cannula 2.0 28 07/02/18 19:36 70 20 97 Nasal Cannula 2.0 28 07/02/18 19:36 97 Nasal Cannula 2.0 28 07/02/18 19:36 Nasal Cannula 2.0 28 07/02/18 19:18 69 07/02/18 17:12 160/76 07/02/18 16:00 71 07/02/18 16:00 Nasal Cannula 2.0 Nasal Cannula 2.0 07/02/18 15:58 97.5 69 20 160/76 (104) 96 97.5 69 07/02/18 15:16 76 20 100 Nasal Cannula 2.0 28 07/02/18 15:06 76 18 99 Nasal Cannula 2.0 28 07/02/18 12:00 Nasal Cannula 2.0 Nasal Cannula 2.0 07/02/18 12:00 69 07/02/18 12:00 97.3 67 20 147/69 (95) 93 97.3 67 07/02/18 11:48 62 18 100 Nasal Cannula 2.0 28 07/02/18 11:38 65 18 99 Nasal Cannula 2.0 28 Intake and Output 07/02/18 07/03/18 19:00 07:00 Intake Total 1375 ml 700 ml Output Total 2050 ml 175 ml Balance -675 ml 525 ml Intake Free Water 300 ml 200 ml IV Total 675 ml Tube Feeding 400 ml 400 ml Other 100 ml Output Urine Total 2050 ml 175 ml # Bowel Movements 2 2 Objective GENERAL: A female who is chronically ill, advanced age. NAD. Aphasic HEENT: Negative. reduced gag NECK: Supple. LUNGS: no rhonchi. Moderate air entry reduced in both bases. same overall CARDIAC: S1 and S2. Regular rate and rhythm without murmurs, rubs, or gallops. ABDOMEN: Soft, nontender, nondistended. no HSM EXTREMITIES: No cyanosis or clubbing. Contractures noted overall. SKIN: Noted and reviewed. reviewed and edited Microbiology Date/Time Source Procedure Growth Status 07/01/18 11:37 Sputum Gram Stain - Final Resulted 07/01/18 11:37 Sputum Culture - Preliminary Gram Negative Bacillus 1 Gram Negative Bacillus 2 Usual Respiratory [place] Resulted Laboratory Tests 07/03/18 04:00: Sodium Level 144, Potassium Level 3.5, Chloride Level 104, Carbon Dioxide Level 37H, Anion Gap 3L, Blood Urea Nitrogen 16, Creatinine 0.5L, Estimat Glomerular Filtration Rate , Glucose Level 153H, Calcium Level 8.6, Total Bilirubin 0.3, Aspartate Amino Transf (AST/SGOT) 16, Alanine Aminotransferase (ALT/SGPT) 12, Alkaline Phosphatase 98, Total Protein 6.0L, Albumin 2.2L, Globulin 3.8, Albumin /Globulin Ratio 0.6L CXR: COMPARISON: Chest x-ray dated 07/01/18 FINDINGS: Single frontal view demonstrates a prominent heart size. Stable right internal jugular catheter with tip in the proximal superior vena cava. Opacification of the left hemidiaphragm unchanged. Improved aeration of the right lower lung zone. The visualized osseous structures are within normal limits. IMPRESSION: Prominent heart size. Stable right internal jugular catheter with tip in the proximal superior vena cava. Opacification of the left hemidiaphragm unchanged. Improved aeration of the right lower lung zone. Current Medications Medications (Trade) Dose Ordered Sig/Singh Route PRN Reason Start Time Stop Time Status Last Admin Dose Admin Acetaminophen (Tylenol) 650 mg Q4H PRN ORAL Mild Pain/Temp > 100.5 07/01/18 07:03 07/28/18 07:02 Albuterol/ Ipratropium (Albuterol/ Ipratropium) 3 ml Q4H PRN HHN Shortness of Breath 07/01/18 07:03 07/05/18 07:02 Albuterol/ Ipratropium (Albuterol/ Ipratropium) 3 ml Q4HRT HHN 07/01/18 07:00 07/06/18 02:59 07/03/18 07:24 Amlodipine Besylate (Norvasc) 5 mg EVERY 12 HOURS ORAL 07/01/18 09:00 07/24/18 20:59 07/03/18 08:45 Aspirin (ASA) 81 mg DAILY GT 07/01/18 09:00 07/25/18 08:59 07/03/18 08:44 Atorvastatin Calcium (Lipitor) 10 mg BEDTIME GT 07/01/18 21:00 07/24/18 20:59 07/02/18 21:03 Carvedilol (Coreg) 12.5 mg EVERY 12 HOURS GT 07/01/18 09:00 07/28/18 08:59 07/03/18 08:45 Chlorhexidine Gluconate (Azra-Hex 2%) 1 applic DAILY@1999 TOPIC 07/01/18 20:00 07/25/18 19:59 07/02/18 21:02 Clonidine HCl (Catapres Tab) 0.1 mg Q6H PRN ORAL For High Blood Pressure 07/01/18 07:03 07/24/18 07:02 07/02/18 17:12 Dextrose (Dextrose 50%) 25 ml STAT PRN IV Hypoglycemia 07/01/18 07:00 07/31/18 06:59 Dextrose (Dextrose 50%) 50 ml STAT PRN IV Hypoglycemia 07/01/18 07:00 07/31/18 06:59 Docusate Sodium (Colace) 100 mg DAILY GT 07/02/18 09:00 08/01/18 08:59 07/02/18 08:15 Furosemide (Lasix) 40 mg DAILY IV 07/01/18 09:00 07/31/18 08:59 07/03/18 08:46 Heparin Sodium (Porcine) (Heparin 5000 units/ml) 5,000 units EVERY 12 HOURS SUBQ 07/01/18 09:00 07/25/18 08:59 07/03/18 08:48 Insulin Aspart (NovoLOG) Q6HR SUBQ 07/01/18 07:00 07/25/18 06:59 07/02/18 12:01 Levetiracetam (Keppra) 400 mg Q12HR GT 07/01/18 09:00 07/24/18 20:59 07/03/18 08:46 Pantoprazole (Protonix) 40 mg EVERY 12 HOURS IVP 07/01/18 09:00 07/24/18 20:59 07/03/18 08:50 Phenytoin (Dilantin) 125 mg Q12HR GT 07/01/18 09:00 07/24/18 20:59 07/03/18 08:49 Subjective ROS Limited/Unobtainable: No Allergies: Coded Allergies: PENICILLINS (Verified Allergy, Unknown, 02/04/18) SULFA (SULFONAMIDE ANTIBIOTICS) (Verified Allergy, Unknown, 02/04/18) SULFACETAMIDE (Unverified Allergy, Unknown, 06/24/18) Objective Last 24 Hour Vital Signs Date Time Temp Pulse Resp B/P (MAP) Pulse Ox O2 Delivery O2 Flow Rate FiO2 07/05/18 16:00 98.2 60 18 141/69 (93) 99 98.2 60 07/05/18 16:00 60 07/05/18 15:30 68 20 100 Nasal Cannula 2.0 28 07/05/18 15:28 60 20 99 Nasal Cannula 2.0 28 07/05/18 12:00 98.4 60 20 138/64 (88) 100 98.4 60 07/05/18 12:00 66 07/05/18 11:38 63 20 100 Nasal Cannula 2.0 28 07/05/18 11:29 62 20 100 Nasal Cannula 2.0 28 07/05/18 09:26 149/66 07/05/18 09:24 65 149/66 07/05/18 09:23 65 149/66 07/05/18 08:00 Nasal Cannula 2.0 28 07/05/18 08:00 98 Nasal Cannula 2.0 28 07/05/18 08:00 98.1 64 22 149/66 (93) 100 98.1 64 07/05/18 08:00 65 07/05/18 08:00 65 20 100 Nasal Cannula 2.0 28 07/05/18 08:00 60 20 96 Nasal Cannula 2.0 28 07/05/18 08:00 Nasal Cannula 2.0 Nasal Cannula 2.0 07/05/18 04:00 Nasal Cannula 2.0 Nasal Cannula 2.0 07/05/18 04:00 98.2 61 20 152/74 (100) 100 98.2 61 07/05/18 04:00 63 07/05/18 03:30 61 20 98 Nasal Cannula 2.0 28 07/05/18 03:30 64 20 100 Nasal Cannula 2.0 28 07/05/18 00:00 98.6 59 24 160/79 (106) 100 98.6 59 07/05/18 00:00 Nasal Cannula 2.0 Nasal Cannula 2.0 07/05/18 00:00 61 07/04/18 23:39 66 20 100 Nasal Cannula 2.0 28 07/04/18 23:38 62 20 99 Nasal Cannula 2.0 28 07/04/18 20:17 66 144/73 07/04/18 20:15 66 144/60 07/04/18 20:00 70 20 98 Nasal Cannula 2.0 28 07/04/18 20:00 68 07/04/18 20:00 98 Nasal Cannula 2.0 28 07/04/18 20:00 Nasal Cannula 2.0 Nasal Cannula 2.0 07/04/18 20:00 Nasal Cannula 2.0 28 07/04/18 20:00 72 20 100 Nasal Cannula 2.0 28 07/04/18 20:00 96.8 66 26 144/73 (96) 95 96.8 66 Intake and Output 07/04/18 07/05/18 19:00 07:00 Intake Total 920 ml 550 ml Output Total 1300 ml 300 ml Balance -380 ml 250 ml Intake Free Water 200 ml 200 ml Tube Feeding 600 ml 350 ml Other 120 ml Output Urine Total 1300 ml 300 ml Laboratory Tests 07/05/18 11:04: Arterial Blood pH 7.499H, Arterial Blood Partial Pressure CO2 46.0H, Arterial Blood Partial Pressure O2 102.1H, Arterial Blood HCO3 35.0H, Arterial Blood Oxygen Saturation 97.6, Arterial Blood Base Excess 10.6, Jose Luis Test Positive Current Medications Medications (Trade) Dose Ordered Sig/Singh Route PRN Reason Start Time Stop Time Status Last Admin Dose Admin Acetaminophen (Tylenol) 650 mg Q4H PRN ORAL Mild Pain/Temp > 100.5 07/05/18 07:45 07/28/18 07:44 Acetylcysteine (Mucomyst) 200 mg Q4HRT [facility] 07/05/18 15:00 08/04/18 14:59 07/05/18 15:30 Albuterol/ Ipratropium (Albuterol/ Ipratropium) 3 ml Q4HRT N 07/05/18 11:00 07/06/18 02:59 07/05/18 15:29 Amlodipine Besylate (Norvasc) 5 mg EVERY 12 HOURS ORAL 9/9/18 09:00 07/24/18 20:59 07/05/18 09:23 Aspirin (ASA) 81 mg DAILY GT 07/05/18 09:00 07/25/18 08:59 07/05/18 09:25 Atorvastatin Calcium (Lipitor) 10 mg BEDTIME GT 07/05/18 21:00 07/24/18 20:59 Carvedilol (Coreg) 12.5 mg EVERY 12 HOURS GT 07/05/18 09:00 07/28/18 08:59 07/05/18 09:24 Chlorhexidine Gluconate (Azra-Hex 2%) 1 applic DAILY@2000 TOPIC 07/05/18 20:00 07/25/18 19:59 Clonidine HCl (Catapres Tab) 0.1 mg Q6H PRN ORAL For High Blood Pressure 07/05/18 07:45 07/24/18 07:44 Dextrose (Dextrose 50%) 25 ml STAT PRN IV Hypoglycemia 07/05/18 07:45 08/04/18 07:44 Dextrose (Dextrose 50%) 50 ml STAT PRN IV Hypoglycemia 07/05/18 07:45 08/04/18 07:44 Docusate Sodium (Colace) 100 mg DAILY GT 07/05/18 09:00 08/01/18 08:59 07/05/18 09:24 Furosemide (Lasix) 40 mg DAILY IV 07/05/18 09:00 07/31/18 08:59 07/05/18 09:26 Heparin Sodium (Porcine) (Heparin 5000 units/ml) 5,000 units EVERY 12 HOURS SUBQ 07/05/18 09:00 07/25/18 08:59 07/05/18 09:27 Insulin Aspart (NovoLOG) Q6HR SUBQ 07/05/18 12:00 07/25/18 06:59 Ipratropium [place] (Atrovent) 500 mcg Q4H PRN HHN Shortness of Breath 07/05/18 10:00 07/10/18 09:59 Lansoprazole (Prevacid) 30 mg Q12HR GT 07/05/18 09:00 08/03/18 20:59 07/05/18 09:25 Levetiracetam (Keppra) 400 mg Q12HR GT 07/05/18 09:00 07/24/18 20:59 07/05/18 09:25 Losartan Potassium (Cozaar) 50 mg DAILY ORAL 07/05/18 09:00 08/03/18 08:59 07/05/18 09:26 Phenytoin (Dilantin) 125 mg Q12HR GT 07/05/18 09:00 07/24/18 20:59 07/05/18 09:24 Brayan Contreras MD Jul 05, 2018 17:47
[2018-07-05 20:00] VITALS: BP 166/74
[2018-07-05] MEDS ORDERED: Dyna-Hex 2% Top Sol 2oz TOPIC SCH (20:00)
[2018-07-06] VITALS: BP 117/54
[2018-07-06 04:00] VITALS: BP 135/76
[2018-07-06] MEDS: Acetylcysteine 20% Soln 4ml HHN SCH ×6 (04:03→23:18)
[2018-07-06] MEDS: Ipratropium 0.02% Inh Soln 2.5ml UD HHN PRN ×6 (04:05→23:17)
[2018-07-06] MEDS: NovoLOG Insulin Flexpen SUBQ SCH ×4 (06:00→17:33)
[2018-07-06 08:00] VITALS: BP 139/70
[2018-07-06] MEDS: Heparin 5000 units/ml inj SUBQ SCH ×2 (09:00→21:22)
[2018-07-06] MEDS: Carvedilol 6.25mg Tab GT SCH ×3 (09:00→21:20)
[2018-07-06] MEDS: Aspirin Baby 81mg GT SCH (09:00)
[2018-07-06] MEDS: Phenytoin Susp 100mg/4ml GT SCH ×2 (09:51→21:18)
[2018-07-06] MEDS: Docusate 100mg/10ml Liq GT SCH (09:51)
[2018-07-06] MEDS: levETIRAcetam 500mg/5ml Liquid GT SCH ×2 (09:52→21:22)
[2018-07-06] MEDS: Losartan 50mg tab ORAL SCH ×2 (09:53→10:09)
--- NOTE | 2018-07-06 10:58 | Diagnostic Imaging Report ---
Indication: Shortness of breath Technique: One view of the chest Comparison: 07/04/2018 Findings: Previously demonstrated interstitial and airspace disease has improved, although some interstitial congestion persists. Left-sided pleural effusion persists. There may be some retrocardiac consolidation persisting. Previously demonstrated central venous catheter is no longer present Impression: Improving but persistent bilateral interstitial and airspace disease, as described Persistent left-sided pleural effusion
[2018-07-06 12:00] VITALS: BP 123/57
--- NOTE | 2018-07-06 12:12 | Infectious Diseases Prog Note ---
Assessment/Plan Assessment/Plan A: 1. E. coli UTI, treated 2. Pneumonia treated 3. Diabetes mellitus. 4. Hypertension. 5. Advanced dementia. 6. Altered mental status. 7.Positive blood culture, likely contamination P; observe off antibiotic Subjective ROS Limited/Unobtainable: Yes Cardiovascular: Reports: other - central line was removed Allergies: Coded Allergies: PENICILLINS (Verified Allergy, Unknown, 02/04/18) SULFA (SULFONAMIDE ANTIBIOTICS) (Verified Allergy, Unknown, 02/04/18) SULFACETAMIDE (Unverified Allergy, Unknown, 06/24/18) Objective Vital Signs Last 24 Hour Vital Signs Date Time Temp Pulse Resp B/P (MAP) Pulse Ox O2 Delivery O2 Flow Rate FiO2 07/06/18 11:21 71 20 98 Nasal Cannula 2.0 28 07/06/18 11:19 71 20 98 Nasal Cannula 2.0 28 07/06/18 11:12 73 20 95 Nasal Cannula 2.0 28 07/06/18 10:09 139/70 07/06/18 10:09 59 139/70 07/06/18 08:00 97.0 59 20 139/70 (93) 98 97.0 07/06/18 08:00 64 07/06/18 07:21 64 20 100 Nasal Cannula 2.0 28 07/06/18 07:12 100 Nasal Cannula 2.0 28 07/06/18 07:12 Nasal Cannula 2.0 28 07/06/18 07:11 62 20 100 Nasal Cannula 2.0 28 07/06/18 04:00 97.1 84 20 135/76 (95) 98 97.1 07/06/18 04:00 74 20 93 Nasal Cannula 2.0 28 07/06/18 04:00 72 20 97 Nasal Cannula 2.0 28 07/06/18 04:00 60 07/06/18 02:42 80 18 Nasal Cannula 2.0 28 07/06/18 00:00 98.8 59 18 117/54 (75) 92 98.8 07/06/18 00:00 56 07/05/18 23:05 74 20 94 Nasal Cannula 2.0 28 07/05/18 23:04 70 20 92 Nasal Cannula 2.0 28 07/05/18 21:55 68 166/74 07/05/18 21:54 68 166/74 07/05/18 21:00 Nasal Cannula 2.0 Nasal Cannula 2.0 07/05/18 20:00 71 07/05/18 20:00 98.1 68 19 166/74 (104) 99 98.1 07/05/18 19:29 75 20 96 Nasal Cannula 2.0 28 07/05/18 19:28 72 20 92 Nasal Cannula 2.0 28 07/05/18 19:27 92 Nasal Cannula 2.0 28 07/05/18 19:27 Nasal Cannula 2.0 28 07/05/18 16:00 98.2 60 18 141/69 (93) 99 98.2 60 07/05/18 16:00 60 07/05/18 15:30 68 20 100 Nasal Cannula 2.0 28 07/05/18 15:28 60 20 99 Nasal Cannula 2.0 28 Height (Feet): 5 Height (Inches): 5.00 Weight (Pounds): 188 General Appearance: no acute distress HEENT: mucous membranes moist Respiratory/Chest: lungs clear, other - oxygen by nasal cannula Cardiovascular: normal rate Abdomen: soft, non tender, other - GT feeding Extremities: no edema Neurologic/Psychiatric: aphasia Laboratory Tests Test 07/06/18 07:00 Prothrombin Time 11.0 SEC (9.30-11.50) Prothromb Time International Ratio 1.0 (0.9-1.1) Activated Partial Thromboplast Time 24 SEC (23-33) Current Medications Medications (Trade) Dose Ordered Sig/Singh Route PRN Reason Start Time Stop Time Status Last Admin Dose Admin Acetaminophen (Tylenol) 650 mg Q4H PRN ORAL Mild Pain/Temp > 100.5 07/05/18 07:45 07/28/18 07:44 Acetylcysteine (Mucomyst) 200 mg Q4HRT HHN 07/05/18 15:00 08/04/18 14:59 07/06/18 11:12 Amlodipine Besylate (Norvasc) 5 mg EVERY 12 HOURS ORAL 07/05/18 09:00 07/24/18 20:59 07/06/18 10:09 Aspirin (ASA) 81 mg DAILY GT 07/05/18 09:00 07/25/18 08:59 07/05/18 09:25 Atorvastatin Calcium (Lipitor) 10 mg BEDTIME GT 07/05/18 21:00 07/24/18 20:59 07/05/18 21:56 Carvedilol (Coreg) 12.5 mg EVERY 12 HOURS GT 07/05/18 09:00 07/28/18 08:59 07/05/18 21:55 Clonidine HCl (Catapres Tab) 0.1 mg Q6H PRN ORAL For High Blood Pressure 07/05/18 07:45 07/24/18 07:44 Dextrose (Dextrose 50%) 25 ml STAT PRN IV Hypoglycemia 07/05/18 07:45 08/04/18 07:44 Dextrose (Dextrose 50%) 50 ml STAT PRN IV Hypoglycemia 07/05/18 07:45 08/04/18 07:44 Docusate Sodium (Colace) 100 mg DAILY GT 07/05/18 09:00 08/01/18 08:59 07/06/18 09:51 Furosemide (Lasix) 40 mg DAILY IV 07/05/18 09:00 07/31/18 08:59 07/06/18 09:52 Heparin Sodium (Porcine) (Heparin 5000 units/ml) 5,000 units EVERY 12 HOURS SUBQ 07/05/18 09:00 07/25/18 08:59 07/05/18 09:27 Insulin Aspart (NovoLOG) Q6HR SUBQ 07/05/18 12:00 07/25/18 06:59 Ipratropium [place] (Atrovent) 500 mcg Q4H PRN HHN Shortness of Breath 07/05/18 10:00 07/10/18 09:59 07/06/18 11:12 Lansoprazole (Prevacid) 30 mg Q12HR GT 07/05/18 09:00 08/03/18 20:59 07/06/18 09:54 Levetiracetam (Keppra) 400 mg Q12HR GT 07/05/18 09:00 07/24/18 20:59 07/06/18 09:52 Losartan Potassium (Cozaar) 50 mg DAILY ORAL 07/05/18 09:00 08/03/18 08:59 07/06/18 10:09 Phenytoin (Dilantin) 125 mg Q12HR GT 07/05/18 09:00 07/24/18 20:59 07/06/18 09:51 Gregory Albright MD Jul 06, 2018 12:12
--- NOTE | 2018-07-06 13:04 | General Progress Note ---
Assessment/Plan Problem List: (1) Acute on chronic diastolic (congestive) heart failure ICD Codes: I50.33 - Acute on chronic diastolic (congestive) heart failure SNOMED: 80175182, 917234329 (2) Dyspnea ICD Codes: R06.00 - Dyspnea, unspecified SNOMED: 721059900 (3) Respiratory distress ICD Codes: R06.03 - Acute respiratory distress SNOMED: 719139012 (4) UTI (urinary tract infection) ICD Codes: N39.0 - Urinary tract infection, site not specified SNOMED: 67835894 Qualifiers: Qualified Codes: N39.0 - Urinary tract infection, site not specified (5) Hypoxia ICD Codes: R09.02 - Hypoxemia SNOMED: 689828956 (6) Pneumonia ICD Codes: J18.9 - Pneumonia, unspecified organism SNOMED: 925555090 Qualifiers: Qualified Codes: J18.9 - Pneumonia, unspecified organism Status: stable, progressing Assessment/Plan iv diuresis keep negative resp rx suctioning chest pt thoracentesis today tube feeds monitor for aspiration monitor cxr replace lytes BP meds advanced not ready for dc resp status needs to be better optimized before dc Subjective ROS Limited/Unobtainable: No Constitutional: Reports: malaise, weakness HEENT: Reports: no symptoms Cardiovascular: Reports: no symptoms Respiratory: Reports: no symptoms Gastrointestinal/Abdominal: Reports: difficulty swallowing Genitourinary: Reports: no symptoms Neurologic/Psychiatric: Reports: pre-existing deficit, seizure Endocrine: Reports: no symptoms Hematologic/Lymphatic: Reports: no symptoms Allergies: Coded Allergies: PENICILLINS (Verified Allergy, Unknown, 02/04/18) SULFA (SULFONAMIDE ANTIBIOTICS) (Verified Allergy, Unknown, 02/04/18) SULFACETAMIDE (Unverified Allergy, Unknown, 06/24/18) All Systems: reviewed and negative except above Subjective stable. per staff less congested. cxr with some improvement(minimal) Left side no longer white out. on gt feeds iv abx iv lasix Objective Last 24 Hour Vital Signs Date Time Temp Pulse Resp B/P (MAP) Pulse Ox O2 Delivery O2 Flow Rate FiO2 07/06/18 11:21 71 20 98 Nasal Cannula 2.0 28 07/06/18 11:19 71 20 98 Nasal Cannula 2.0 28 07/06/18 11:12 73 20 95 Nasal Cannula 2.0 28 07/06/18 10:09 139/70 07/06/18 10:09 59 139/70 07/06/18 08:00 97.0 59 20 139/70 (93) 98 97.0 07/06/18 08:00 64 07/06/18 07:21 64 20 100 Nasal Cannula 2.0 28 07/06/18 07:12 100 Nasal Cannula 2.0 28 07/06/18 07:12 Nasal Cannula 2.0 28 07/06/18 07:11 62 20 100 Nasal Cannula 2.0 28 07/06/18 04:00 97.1 84 20 135/76 (95) 98 97.1 07/06/18 04:00 74 20 93 Nasal Cannula 2.0 28 07/06/18 04:00 72 20 97 Nasal Cannula 2.0 28 07/06/18 04:00 60 07/06/18 02:42 80 18 Nasal Cannula 2.0 28 07/06/18 00:00 98.8 59 18 117/54 (75) 92 98.8 07/06/18 00:00 56 07/05/18 23:05 74 20 94 Nasal Cannula 2.0 28 07/05/18 23:04 70 20 92 Nasal Cannula 2.0 28 07/05/18 21:55 68 166/74 07/05/18 21:54 68 166/74 07/05/18 21:00 Nasal Cannula 2.0 Nasal Cannula 2.0 07/05/18 20:00 71 07/05/18 20:00 98.1 68 19 166/74 (104) 99 98.1 07/05/18 19:29 75 20 96 Nasal Cannula 2.0 28 07/05/18 19:28 72 20 92 Nasal Cannula 2.0 28 07/05/18 19:27 92 Nasal Cannula 2.0 28 07/05/18 19:27 Nasal Cannula 2.0 28 07/05/18 16:00 98.2 60 18 141/69 (93) 99 98.2 60 07/05/18 16:00 60 07/05/18 15:30 68 20 100 Nasal Cannula 2.0 28 07/05/18 15:28 60 20 99 Nasal Cannula 2.0 28 Intake and Output 07/05/18 07/06/18 19:00 07:00 Intake Total 430 ml 600 ml Balance 430 ml 600 ml Intake Free Water 80 ml 200 ml Tube Feeding 350 ml 400 ml # Voids 3 Laboratory Tests 07/06/18 07:00: Prothrombin Time 11.0, Prothromb Time International Ratio 1.0, Activated Partial Thromboplast Time 24 Height (Feet): 5 Height (Inches): 5.00 Weight (Pounds): 188 Objective General Appearance: WD/WN, alert Neck: supple Cardiovascular: regular rhythm Respiratory/Chest: rhonchi edwige Abdomen: normal bowel sounds, non tender, soft, no organomegaly Edema: no edema noted Arm (L), no edema noted Arm (R), no edema noted Leg (L), no edema noted Leg (R), no edema noted Pedal (L), no edema noted Pedal (R), no edema noted Generalized Neurologic: disoriented, unresponsive, aphasia Michael Sprague MD Jul 06, 2018 13:04
[2018-07-06 13:19] LABS: BASOPHILS % (AUTO) 0.8 % (0.0-2.0); EOSINOPHILS % (AUTO) 3.7 % (0.0-3.0); HEMATOCRIT 37.4 % (37.0-47.0); LYMPHOCYTES % (AUTO) 23.9 % (20.0-45.0); MEAN CORPUSCULAR VOLUME 100 FL (80-99); MONOCYTES % (AUTO) 9.7 % (1.0-10.0); NEUTROPHILS % (AUTO) 61.9 % (45.0-75.0); PLATELET COUNT 169 K/UL (150-450); RED BLOOD COUNT 3.73 M/UL (4.20-5.40); RED CELL DISTRIBUTION WIDTH 13.2 % (11.6-14.8); WHITE BLOOD COUNT 5.2 K/UL (4.8-10.8)
[2018-07-06 13:27] LABS: ALANINE AMINOTRANSFERASE 15 U/L (12-78); ALBUMIN 2.6 G/DL (3.4-5.0); ALBUMIN/GLOBULIN RATIO 0.7 (1.0-2.7); ALKALINE PHOSPHATASE 119 U/L (46-116); ANION GAP 2 mmol/L (5-15); ASPARTATE AMINO TRANSFERASE 22 U/L (15-37); BILIRUBIN,TOTAL 0.3 MG/DL (0.2-1.0); BLOOD UREA NITROGEN 16 mg/dL (7-18); CARBON DIOXIDE 38 MMOL/L (21-32); CHLORIDE 103 MMOL/L (98-107); CREATININE 0.5 MG/DL (0.55-1.30); POTASSIUM 3.6 MMOL/L (3.5-5.1); SODIUM 143 MMOL/L (136-145)
--- NOTE | 2018-07-06 13:58 | Pre-Procedure Note/Attestation ---
Pre-Procedure Note/Attestation Complete Prior to Procedure Procedure Narrative: Thoracentesis under US Indications for Procedure Pre-Operative Diagnosis: Pleural effusion Attestation I attest that I discussed the nature of the procedure; its benefits; risks and complications; and alternatives (and the risks and benefits of such alternatives ), prior to the procedure, with the patient (or the patient's legal medical customer service representative). I attest that, if there was a reasonable possibility of needing a blood transfusion, the patient (or the patient's legal medical customer service representative) was given the [facility] standardized written summary, pursuant to the Yovanny [place] Blood Safety Act ([place] Health and Safety Code # 1645, as amended). I attest that I re-evaluated the patient just prior to the surgery and that there has been no change in the patient's H&P, except as documented below: Discussed with pt's. daughter SelinaBoby Mosqueda MD Jul 06, 2018 13:58
--- NOTE | 2018-07-06 15:34 | Brief Operative Note ---
Immediate Post Operative Note Operative Note Chief Complaint: SOB Pre-op Diagnosis: Pleural effusion Procedure: thoracentesis L Post-op Diagnosis: same as pre-op Surgeon: Kristin PATEL Anesthesia: local Specimen: yes - 200 ml ronny fluid Complications: none Condition: stable Fluids: none Estimated Blood Loss: none Implant(s) used?: No Boby Patel MD Jul 06, 2018 15:34
--- NOTE | 2018-07-06 15:36 | Diagnostic Imaging Report ---
Indication: Status post thoracentesis Technique: One view of the chest Comparison: 6 hours earlier Findings: Interim decrease in left-sided pleural effusion, status post thoracentesis. No pneumothorax. There is persistent retrocardiac consolidation. Right-sided pleural effusion appears increased from prior study. There is generalized mild interstitial congestion which is unchanged. Impression: Decreased left pleural effusion, status post thoracentesis. No radiographically evident complication New or increased right pleural effusion Stable mild interstitial congestion
[2018-07-06 16:00] VITALS: BP 143/73
--- NOTE | 2018-07-06 16:02 | Diagnostic Imaging Report ---
Indications: Pleural effusion Technique: Ultrasound used to localize optimal puncture site. Sterile prepping and draping left chest. Local anesthesia with 1% lidocaine. Under real-time ultrasound guidance, puncture pleural space using thoracentesis needle. Stylet removed. Catheter placed to vacuum bottle suction. Total 300 milliliters of ronny slightly cloudy fluid aspirated. Patient tolerated procedure well, without immediate complication. Findings: Followup sonography demonstrates complete resolution of pleural fluid. Impression: Successful ultrasound-guided thoracentesis, yielding 300 milliliters of ronny slightly cloudy fluid
[2018-07-06 20:00] VITALS: BP 144/75
--- NOTE | 2018-07-06 21:38 | Pulmonology Progress Note ---
Assessment/Plan Assessment/Plan Pulmonary Progress Note Assessment/Plan IMPRESSION: hypoxemia, possible mucus plugging, pneumonia, pleural effusions, respiratory insufficiency, protein-calorie malnutrition, dementia, aspiration, G-tube, prior history of CVA. Persistant opacification left hemigthorax, On CPT/HHN with mucomyst, s/p Thoracentesis 300ml, labs pending, CXR improved PLAN keep negative , Thoracentesis in AM respiratory care as is; CPT/HHN oxygen as is monitoring for change aspiration precautions off steroids monitor imaging; for change dc planning to SNF noted impression, plan, and exam edited and reviewed in detail care discussed with RN Subjective ROS Limited/Unobtainable: Yes Allergies: Coded Allergies: PENICILLINS (Verified Allergy, Unknown, 02/04/18) SULFA (SULFONAMIDE ANTIBIOTICS) (Verified Allergy, Unknown, 02/04/18) SULFACETAMIDE (Unverified Allergy, Unknown, 06/24/18) Subjective care noted no distress findings discussed nursing notes reviewed Objective Last 24 Hour Vital Signs Date Time Temp Pulse Resp B/P (MAP) Pulse Ox O2 Delivery O2 Flow Rate FiO2 07/03/18 08:45 64 143/68 07/03/18 08:45 64 143/68 07/03/18 08:00 98.3 62 20 143/68 (93) 100 98.3 64 07/03/18 08:00 Nasal Cannula 2.0 Nasal Cannula 2.0 07/03/18 07:36 63 20 100 Nasal Cannula 2.0 28 07/03/18 07:25 Nasal Cannula 2.0 28 07/03/18 07:25 98 Nasal Cannula 2.0 28 07/03/18 07:24 64 18 100 Nasal Cannula 2.0 28 07/03/18 04:00 Nasal Cannula 2.0 Nasal Cannula 2.0 07/03/18 04:00 98.3 64 20 143/69 (93) 98 98.3 64 07/03/18 03:50 60 18 99 Nasal Cannula 2.0 28 07/03/18 03:41 60 18 98 Nasal Cannula 2.0 28 07/03/18 03:35 60 07/03/18 00:00 59 07/03/18 00:00 Nasal Cannula 2.0 Nasal Cannula 2.0 07/03/18 00:00 98.5 58 20 131/48 (75) 98 98.5 58 07/02/18 23:25 60 18 99 Nasal Cannula 2.0 28 07/02/18 23:15 61 18 98 Nasal Cannula 2.0 28 07/02/18 21:03 75 158/84 07/02/18 21:02 75 158/84 07/02/18 20:00 98.4 75 24 158/84 (108) 97 98.4 75 07/02/18 20:00 Nasal Cannula 2.0 Nasal Cannula 2.0 07/02/18 19:46 77 20 98 Nasal Cannula 2.0 28 07/02/18 19:36 70 20 97 Nasal Cannula 2.0 28 07/02/18 19:36 97 Nasal Cannula 2.0 28 07/02/18 19:36 Nasal Cannula 2.0 28 07/02/18 19:18 69 07/02/18 17:12 160/76 07/02/18 16:00 71 07/02/18 16:00 Nasal Cannula 2.0 Nasal Cannula 2.0 07/02/18 15:58 97.5 69 20 160/76 (104) 96 97.5 69 07/02/18 15:16 76 20 100 Nasal Cannula 2.0 28 07/02/18 15:06 76 18 99 Nasal Cannula 2.0 28 07/02/18 12:00 Nasal Cannula 2.0 Nasal Cannula 2.0 07/02/18 12:00 69 07/02/18 12:00 97.3 67 20 147/69 (95) 93 97.3 67 07/02/18 11:48 62 18 100 Nasal Cannula 2.0 28 07/02/18 11:38 65 18 99 Nasal Cannula 2.0 28 Intake and Output 07/02/18 07/03/18 19:00 07:00 Intake Total 1375 ml 700 ml Output Total 2050 ml 175 ml Balance -675 ml 525 ml Intake Free Water 300 ml 200 ml IV Total 675 ml Tube Feeding 400 ml 400 ml Other 100 ml Output Urine Total 2050 ml 175 ml # Bowel Movements 2 2 Objective GENERAL: A female who is chronically ill, advanced age. NAD. Aphasic HEENT: Negative. reduced gag NECK: Supple. LUNGS: no rhonchi. Moderate air entry reduced in both bases. same overall CARDIAC: S1 and S2. Regular rate and rhythm without murmurs, rubs, or gallops. ABDOMEN: Soft, nontender, nondistended. no HSM EXTREMITIES: No cyanosis or clubbing. Contractures noted overall. SKIN: Noted and reviewed. reviewed and edited Microbiology Date/Time Source Procedure Growth Status 07/01/18 11:37 Sputum Gram Stain - Final Resulted 07/01/18 11:37 Sputum Culture - Preliminary Gram Negative Bacillus 1 Gram Negative Bacillus 2 Usual Respiratory [place] Resulted Laboratory Tests 07/03/18 04:00: Sodium Level 144, Potassium Level 3.5, Chloride Level 104, Carbon Dioxide Level 37H, Anion Gap 3L, Blood Urea Nitrogen 16, Creatinine 0.5L, Estimat Glomerular Filtration Rate , Glucose Level 153H, Calcium Level 8.6, Total Bilirubin 0.3, Aspartate Amino Transf (AST/SGOT) 16, Alanine Aminotransferase (ALT/SGPT) 12, Alkaline Phosphatase 98, Total Protein 6.0L, Albumin 2.2L, Globulin 3.8, Albumin /Globulin Ratio 0.6L CXR: COMPARISON: Chest x-ray dated 07/01/18 FINDINGS: Single frontal view demonstrates a prominent heart size. Stable right internal jugular catheter with tip in the proximal superior vena cava. Opacification of the left hemidiaphragm unchanged. Improved aeration of the right lower lung zone. The visualized osseous structures are within normal limits. IMPRESSION: Prominent heart size. Stable right internal jugular catheter with tip in the proximal superior vena cava. Opacification of the left hemidiaphragm unchanged. Improved aeration of the right lower lung zone. Current Medications Medications (Trade) Dose Ordered Sig/Singh Route PRN Reason Start Time Stop Time Status Last Admin Dose Admin Acetaminophen (Tylenol) 650 mg Q4H PRN ORAL Mild Pain/Temp > 100.5 07/01/18 07:03 07/28/18 07:02 Albuterol/ Ipratropium (Albuterol/ Ipratropium) 3 ml Q4H PRN HHN Shortness of Breath 07/01/18 07:03 07/05/18 07:02 Albuterol/ Ipratropium (Albuterol/ Ipratropium) 3 ml Q4HRT HHN 07/01/18 07:00 07/06/18 02:59 07/03/18 07:24 Amlodipine Besylate (Norvasc) 5 mg EVERY 12 HOURS ORAL 07/01/18 09:00 07/24/18 20:59 07/03/18 08:45 Aspirin (ASA) 81 mg DAILY GT 07/01/18 09:00 07/25/18 08:59 07/03/18 08:44 Atorvastatin Calcium (Lipitor) 10 mg BEDTIME GT 07/01/18 21:00 07/24/18 20:59 07/02/18 21:03 Carvedilol (Coreg) 12.5 mg EVERY 12 HOURS GT 07/01/18 09:00 07/28/18 08:59 07/03/18 08:45 Chlorhexidine Gluconate (Azra-Hex 2%) 1 applic DAILY@2000 TOPIC 07/01/18 20:00 07/25/18 19:59 07/02/18 21:02 Clonidine HCl (Catapres Tab) 0.1 mg Q6H PRN ORAL For High Blood Pressure 07/01/18 07:03 07/24/18 07:02 07/02/18 17:12 Dextrose (Dextrose 50%) 25 ml STAT PRN IV Hypoglycemia 07/01/18 07:00 07/31/18 06:59 Dextrose (Dextrose 50%) 50 ml STAT PRN IV Hypoglycemia 07/01/18 07:00 07/31/18 06:59 Docusate Sodium (Colace) 100 mg DAILY GT 07/02/18 09:00 08/01/18 08:59 07/02/18 08:15 Furosemide (Lasix) 40 mg DAILY IV 07/01/18 09:00 07/31/18 08:59 07/03/18 08:46 Heparin Sodium (Porcine) (Heparin 5000 units/ml) 5,000 units EVERY 12 HOURS SUBQ 07/01/18 09:00 07/25/18 08:59 07/03/18 08:48 Insulin Aspart (NovoLOG) Q6HR SUBQ 07/01/18 07:00 07/25/18 06:59 07/02/18 12:01 Levetiracetam (Keppra) 400 mg Q12HR GT 07/01/18 09:00 07/24/18 20:59 07/03/18 08:46 Pantoprazole (Protonix) 40 mg EVERY 12 HOURS IVP 07/01/18 09:00 07/24/18 20:59 07/03/18 08:50 Phenytoin (Dilantin) 125 mg Q12HR GT 07/01/18 09:00 07/24/18 20:59 07/03/18 08:49 Subjective ROS Limited/Unobtainable: No Allergies: Coded Allergies: PENICILLINS (Verified Allergy, Unknown, 02/04/18) SULFA (SULFONAMIDE ANTIBIOTICS) (Verified Allergy, Unknown, 02/04/18) SULFACETAMIDE (Unverified Allergy, Unknown, 06/24/18) Objective Last 24 Hour Vital Signs Date Time Temp Pulse Resp B/P (MAP) Pulse Ox O2 Delivery O2 Flow Rate FiO2 07/06/18 19:49 71 20 100 Nasal Cannula 2.0 07/06/18 19:42 Nasal Cannula 2.0 07/06/18 19:41 100 Nasal Cannula 2.0 07/06/18 19:40 62 20 99 Nasal Cannula 2.0 07/06/18 16:00 98.1 58 20 143/73 (96) 100 98.1 07/06/18 16:00 58 07/06/18 15:16 73 20 100 Nasal Cannula 2.0 07/06/18 15:09 70 20 98 Nasal Cannula 2.0 07/06/18 12:00 97.7 56 20 123/57 (79) 99 97.7 07/06/18 12:00 56 07/06/18 11:21 71 20 98 Nasal Cannula 2.0 07/06/18 11:19 71 20 98 Nasal Cannula 2.0 07/06/18 11:12 73 20 95 Nasal Cannula 2.0 07/06/18 10:09 139/70 07/06/18 10:09 59 139/70 07/06/18 08:00 97.0 59 20 139/70 (93) 98 97.0 07/06/18 08:00 64 07/06/18 07:21 64 20 100 Nasal Cannula 2.0 07/06/18 07:12 100 Nasal Cannula 2.0 07/06/18 07:12 Nasal Cannula 2.0 07/06/18 07:11 62 20 100 Nasal Cannula 2.0 07/06/18 04:00 97.1 84 20 135/76 (95) 98 97.1 07/06/18 04:00 74 20 93 Nasal Cannula 2.0 07/06/18 04:00 72 20 97 Nasal Cannula 2.0 18 04:00 60 07/06/18 02:42 80 18 Nasal Cannula 2.0 28 07/06/18 00:00 98.8 59 18 117/54 (75) 92 98.8 07/06/18 00:00 56 07/05/18 23:05 74 20 94 Nasal Cannula 2.0 28 07/05/18 23:04 70 20 92 Nasal Cannula 2.0 28 07/05/18 21:55 68 166/74 07/05/18 21:54 68 166/74 Intake and Output 07/05/18 07/06/18 19:00 07:00 Intake Total 430 ml 600 ml Balance 430 ml 600 ml Intake Free Water 80 ml 200 ml Tube Feeding 350 ml 400 ml # Voids 3 Laboratory Tests 07/06/18 07:00: White Blood Count 5.2, Red Blood Count 3.73L, Hemoglobin 12.0, Hematocrit 37.4, Mean Corpuscular Volume 100H, Mean Corpuscular Hemoglobin 32.0H, Mean Corpuscular Hemoglobin Concent 32.0, Red Cell Distribution Width 13.2, Platelet Count 169, Mean Platelet Volume 8.8, Neutrophils (%) (Auto) 61.9, Lymphocytes (% ) (Auto) 23.9, Monocytes (%) (Auto) 9.7, Eosinophils (%) (Auto) 3.7H, Basophils (%) (Auto) 0.8, Prothrombin Time 11.0, Prothromb Time International Ratio 1.0, Activated Partial Thromboplast Time 24, Sodium Level 143, Potassium Level 3.6, Chloride Level 103, Carbon Dioxide Level 38H, Anion Gap 2L, Blood Urea Nitrogen 16, Creatinine 0.5L, Estimat Glomerular Filtration Rate , Glucose Level 162H, Calcium Level 9.0, Magnesium Level 2.1, Total Bilirubin 0.3, Aspartate Amino Transf (AST/SGOT) 22, Alanine Aminotransferase (ALT/SGPT) 15, Alkaline Phosphatase 119H, Total Protein 6.5, Albumin 2.6L, Globulin 3.9, Albumin/ Globulin Ratio 0.7L 07/06/18 14:05: Body Fluid Source Thoracentesis, Body Fluid Volume 24, Body Fluid Appearance Hazy, Body Fluid RBC 5413, Body Fluid Total Nucleated Cells 213, Body Fluid Polynuclear WBCs (%) 29, Body Fluid Mononuclear WBCs (%) 62, Body Fluid Mesothelial Cells (%) 9, Body Fluid Total Protein [Pending], Body Fluid Lactate Dehydrogenase [Pending] Current Medications Medications (Trade) Dose Ordered Sig/Singh Route PRN Reason Start Time Stop Time Status Last Admin Dose Admin Acetaminophen (Tylenol) 650 mg Q4H PRN ORAL Mild Pain/Temp > 100.5 07/05/18 07:45 07/28/18 07:44 Acetylcysteine (Mucomyst) 200 mg Q4HRT HHN 07/05/18 15:00 08/04/18 14:59 07/06/18 19:38 Amlodipine Besylate (Norvasc) 5 mg EVERY 12 HOURS ORAL 07/05/18 09:00 07/24/18 20:59 07/06/18 10:09 Aspirin (ASA) 81 mg DAILY GT 07/05/18 09:00 07/25/18 08:59 07/05/18 09:25 Atorvastatin Calcium (Lipitor) 10 mg BEDTIME GT 07/05/18 21:00 07/24/18 20:59 07/05/18 21:56 Carvedilol (Coreg) 12.5 mg EVERY 12 HOURS GT 07/05/18 09:00 07/28/18 08:59 07/05/18 21:55 Clonidine HCl (Catapres Tab) 0.1 mg Q6H PRN ORAL For High Blood Pressure 07/05/18 07:45 07/24/18 07:44 Dextrose (Dextrose 50%) 25 ml STAT PRN IV Hypoglycemia 07/05/18 07:45 08/04/18 07:44 Dextrose (Dextrose 50%) 50 ml STAT PRN IV Hypoglycemia 07/05/18 07:45 08/04/18 07:44 Docusate Sodium (Colace) 100 mg DAILY GT 07/05/18 09:00 08/01/18 08:59 07/06/18 09:51 Furosemide (Lasix) 40 mg DAILY IV 07/05/18 09:00 07/31/18 08:59 07/06/18 09:52 Heparin Sodium (Porcine) (Heparin 5000 units/ml) 5,000 units EVERY 12 HOURS SUBQ 07/05/18 09:00 07/25/18 08:59 07/05/18 09:27 Insulin Aspart (NovoLOG) Q6HR SUBQ 07/05/18 12:00 07/25/18 06:59 Ipratropium [place] (Atrovent) 500 mcg Q4H PRN HHN Shortness of Breath 07/05/18 10:00 07/10/18 09:59 07/06/18 19:37 Lansoprazole (Prevacid) 30 mg Q12HR GT 07/05/18 09:00 08/03/18 20:59 07/06/18 09:54 Levetiracetam (Keppra) 400 mg Q12HR GT 07/05/18 09:00 07/24/18 20:59 07/06/18 09:52 Losartan Potassium (Cozaar) 50 mg DAILY ORAL 07/05/18 09:00 08/03/18 08:59 07/06/18 10:09 Phenytoin (Dilantin) 125 mg Q12HR GT 07/05/18 09:00 07/24/18 20:59 07/06/18 09:51 Brayan Contreras MD Jul 06, 2018 21:38
[2018-07-07] VITALS: BP 133/65
--- NOTE | 2018-07-07 00:15 | Progress Note ---
DATE: 07/05/2018 CARDIOLOGY PROGRESS NOTE Late entry for 07/05/2018. SUBJECTIVE: The patient remains with respiratory distress requiring frequent suctioning. Chest x-ray yesterday revealed left lung whiteout. The patient requires oxygenation and episodic BiPAP support. OBJECTIVE: VITAL SIGNS: Blood pressure 149/66, pulse 65, and respirations 22. Afebrile. LUNGS: Diminished breath sounds on the left. Moderate rhonchi. HEART: Regular rhythm and rate. Normal S1, S2 with no new murmur. ABDOMEN: Soft. EXTREMITIES: With trace dependent edema. LABORATORY DATA: No new laboratories today. ABG reveals pH 7.49, pCO2 46, and pO2 100. IMPRESSION: 1. Left lung whiteout. 2. Metabolic alkalosis. 3. Aspiration pneumonia. 4. Healthcare-acquired pneumonia. 5. Acute on chronic diastolic congestive heart failure. 6. Pleural effusion. PLAN: 1. Avoid positive fluid balance. 2. Respiratory hygiene. 3. Chest PT. 4. Bronchodilators. 5. Aggressive sectioning. 6. Continue antimicrobials. 7. Diuresis based on clinical parameters. 8. DVT prophylaxis. 9. Continue current cardiovascular regimen. Otherwise, titrate for optimal blood pressure control. Brayan Card M.D. DR: CAMILA JOB#: [id number] CC:
--- NOTE | 2018-07-07 00:30 | Progress Note ---
DATE: 07/06/2018 CARDIOLOGY PROGRESS NOTE SUBJECTIVE: The patient is less congested. The chest x-ray shows slight decrease in left lung whiteout. Thoracentesis was performed today. A 200 mL of serosanguineous fluid was removed from the left lung without apparent complication. The patient is saturating 99% on 2 liters nasal cannula. OBJECTIVE: VITAL SIGNS: Blood pressure 143/73, pulse 58, and respirations 20. LUNGS: Coarse breath sounds. Scattered rhonchi. Better lung sounds on the left. HEART: Regular rhythm and rate. Normal S1, S2 with a fourth heart sound. ABDOMEN: Soft. EXTREMITIES: Trace edema. LABORATORY DATA: Sodium 143, potassium 3.6, BUN 16, and creatinine 0.5. Albumin 2.6. White count 5.2 and hemoglobin 12. IMPRESSION: 1. Healthcare-acquired pneumonia. 2. Pleural effusion status post thoracentesis. 3. Anemia. 4. Acute on chronic diastolic congestive heart failure. 5. Contraction alkalosis. 6. Moderate protein-calorie malnutrition. 7. Paroxysmal atrial fibrillation. 8. Hypertensive heart disease with improved blood pressure control. PLAN: 1. Antimicrobials. 2. Respiratory hygiene. 3. Avoid positive fluid balance. 4. Titrate antihypertensives, anti-platelet therapy, and DVT prophylaxis. Brayan Card M.D. DR: CAMILA JOB#: [id number] CC:
[2018-07-07] MEDS: Acetylcysteine 20% Soln 4ml HHN SCH ×6 (03:04→22:33)
[2018-07-07] MEDS: Ipratropium 0.02% Inh Soln 2.5ml UD HHN PRN ×6 (03:04→23:33)
[2018-07-07 04:00] VITALS: BP 145/78
[2018-07-07] MEDS: NovoLOG Insulin Flexpen SUBQ SCH ×4 (06:00→18:00)
[2018-07-07 08:00] VITALS: BP 157/70
[2018-07-07] MEDS: Docusate 100mg/10ml Liq GT SCH (09:45)
[2018-07-07] MEDS: Phenytoin Susp 100mg/4ml GT SCH ×2 (09:46→20:45)
[2018-07-07] MEDS: levETIRAcetam 500mg/5ml Liquid GT SCH ×2 (09:46→20:45)
[2018-07-07] MEDS: Aspirin Baby 81mg GT SCH (09:47)
[2018-07-07] MEDS: Carvedilol 6.25mg Tab GT SCH ×2 (09:47→20:47)
[2018-07-07] MEDS: Losartan 50mg tab ORAL SCH (09:47)
[2018-07-07] MEDS: Heparin 5000 units/ml inj SUBQ SCH ×2 (09:54→20:49)
--- NOTE | 2018-07-07 10:49 | Infectious Diseases Prog Note ---
"Assessment/Plan Assessment/Plan antibiotics : none A 1. e.coli UTI s/p rx 2. aerococcus | staph bacteremia s/p rx 3. diabetes mellitus 4. hypertension 5. dementia 6. pseudomonas pneumonia 7. pleural effusion s/p thoracentesis P 1. start ciprofloxacin 2. will follow up cultures Subjective ROS Limited/Unobtainable: Yes Allergies: Coded Allergies: PENICILLINS (Verified Allergy, Unknown, 02/04/18) SULFA (SULFONAMIDE ANTIBIOTICS) (Verified Allergy, Unknown, 02/04/18) SULFACETAMIDE (Unverified Allergy, Unknown, 06/24/18) Objective Vital Signs Last 24 Hour Vital Signs Date Time Temp Pulse Resp B/P (MAP) Pulse Ox O2 Delivery O2 Flow Rate FiO2 07/07/18 09:47 157/70 07/07/18 09:47 60 157/70 07/07/18 09:47 60 157/70 07/07/18 09:00 Nasal Cannula 2.0 Nasal Cannula 2.0 07/07/18 08:00 65 07/07/18 08:00 98.1 60 20 157/70 (99) 100 98.1 07/07/18 07:45 62 22 100 Nasal Cannula 2.0 28 07/07/18 07:30 98 Nasal Cannula 2.0 28 07/07/18 07:30 61 20 98 Nasal Cannula 2.0 28 07/07/18 07:30 Nasal Cannula 2.0 28 07/07/18 04:00 97.3 62 22 145/78 (100) 100 97.3 07/07/18 04:00 58 07/07/18 03:40 59 20 100 Nasal Cannula 2.0 28 07/07/18 03:07 59 21 98 Nasal Cannula 2.0 28 07/07/18 00:00 60 07/07/18 00:00 97.5 56 21 133/65 (87) 99 97.5 07/06/18 23:29 59 20 100 Nasal Cannula 2.0 28 07/06/18 23:18 58 20 99 Nasal Cannula 2.0 28 07/06/18 21:20 65 144/75 07/06/18 21:19 65 144/75 07/06/18 21:00 Nasal Cannula 2.0 Nasal Cannula 2.0 07/06/18 20:00 61 07/06/18 20:00 97.9 65 22 144/75 (98) 99 97.9 07/06/18 19:49 71 20 100 Nasal Cannula 2.0 28 07/06/18 19:42 Nasal Cannula 2.0 28 07/06/18 19:41 100 Nasal Cannula 2.0 28 07/06/18 19:40 62 20 99 Nasal Cannula 2.0 28 07/06/18 16:00 98.1 58 20 143/73 (96) 100 98.1 07/06/18 16:00 58 07/06/18 15:16 73 20 100 Nasal Cannula 2.0 28 07/06/18 15:09 70 20 98 Nasal Cannula 2.0 28 07/06/18 12:00 97.7 56 20 123/57 (79) 99 97.7 07/06/18 12:00 56 07/06/18 11:21 71 20 98 Nasal Cannula 2.0 28 07/06/18 11:19 71 20 98 Nasal Cannula 2.0 28 07/06/18 11:12 73 20 95 Nasal Cannula 2.0 28 Height (Feet): 5 Height (Inches): 5.00 Weight (Pounds): 171 Respiratory/Chest: lungs clear Cardiovascular: normal rate, regular rhythm, no gallop/murmur Abdomen: soft, non tender, other - GT Extremities: no edema Microbiology Date/Time Source Procedure Growth Status 07/06/18 14:05 Body Fluid Left Side Gram Stain Pending Resulted 07/06/18 14:05 Body Fluid Left Side Body Fluid Culture - Preliminary NO GROWTH Resulted Laboratory Tests Test 07/06/18 14:05 Body Fluid Source Thoracentesis Body Fluid Volume 24 mL Body Fluid Appearance Hazy (Clear) Body Fluid RBC 5413 /CUMM Body Fluid Total Nucleated Cells 213 /CUMM Body Fluid Polynuclear WBCs (%) 29 % Body Fluid Mononuclear WBCs (%) 62 % Body Fluid Mesothelial Cells (%) 9 % Body Fluid Total Protein Pending Body Fluid Lactate Dehydrogenase Pending Current Medications Medications (Trade) Dose Ordered Sig/Singh Route PRN Reason Start Time Stop Time Status Last Admin Dose Admin Acetaminophen (Tylenol) 650 mg Q4H PRN ORAL Mild Pain/Temp > 100.5 07/05/18 07:45 07/28/18 07:44 Acetylcysteine (Mucomyst) 200 mg Q4HRT HHN 07/05/18 15:00 08/04/18 14:59 07/07/18 07:31 Amlodipine Besylate (Norvasc) 5 mg EVERY 12 HOURS ORAL 07/05/18 09:00 07/24/18 20:59 07/07/18 09:47 Aspirin (ASA) 81 mg DAILY GT 07/05/18 09:00 07/25/18 08:59 07/07/18 09:47 Atorvastatin Calcium (Lipitor) 10 mg BEDTIME GT 07/05/18 21:00 07/24/18 20:59 07/06/18 21:19 Carvedilol (Coreg) 12.5 mg EVERY 12 HOURS GT 07/05/18 09:00 07/28/18 08:59 07/07/18 09:47 Clonidine HCl (Catapres Tab) 0.1 mg Q6H PRN ORAL For High Blood Pressure 07/05/18 07:45 07/24/18 07:44 Dextrose (Dextrose 50%) 25 ml STAT PRN IV Hypoglycemia 07/05/18 07:45 08/04/18 07:44 Dextrose (Dextrose 50%) 50 ml STAT PRN IV Hypoglycemia 07/05/18 07:45 08/04/18 07:44 Docusate Sodium (Colace) 100 mg DAILY GT 07/05/18 09:00 08/01/18 08:59 07/07/18 09:45 Furosemide (Lasix) 40 mg DAILY IV 07/05/18 09:00 07/31/18 08:59 07/07/18 09:46 Heparin Sodium (Porcine) (Heparin 5000 units/ml) 5,000 units EVERY 12 HOURS SUBQ 07/05/18 09:00 07/25/18 08:59 07/07/18 09:54 Insulin Aspart (NovoLOG) Q6HR SUBQ 07/05/18 12:00 07/25/18 06:59 Ipratropium [place] (Atrovent) 500 mcg Q4H PRN HHN Shortness of Breath 07/05/18 10:00 07/10/18 09:59 07/07/18 07:31 Lansoprazole (Prevacid) 30 mg Q12HR GT 07/05/18 09:00 08/03/18 20:59 07/07/18 09:47 Levetiracetam (Keppra) 400 mg Q12HR GT 07/05/18 09:00 07/24/18 20:59 07/07/18 09:46 Losartan Potassium (Cozaar) 50 mg DAILY ORAL 07/05/18 09:00 08/03/18 08:59 07/07/18 09:47 Phenytoin (Dilantin) 125 mg Q12HR GT 07/05/18 09:00 07/24/18 20:59 07/07/18 09:46 RAMY BELLA Jul 07, 2018 10:49"
[2018-07-07] MEDS ORDERED: Ciprofloxacin 500mg tab GT SCH (11:15)
--- NOTE | 2018-07-07 11:24 | Pulmonology Progress Note ---
Assessment/Plan Assessment/Plan IMPRESSION: hypoxemia, possible mucus plugging, pneumonia, pleural effusions, respiratory insufficiency, protein-calorie malnutrition, dementia, aspiration, G-tube, prior history of CVA. pleural effusion s/p tap PLAN keep negative follow up fluid results respiratory care noted oxygen as is monitoring for change aspiration precautions monitor I and O monitor imaging; for change dc planning to SNF if remains stable impression, plan, and exam edited and reviewed in detail care discussed with RN Subjective ROS Limited/Unobtainable: Yes Allergies: Coded Allergies: PENICILLINS (Verified Allergy, Unknown, 02/04/18) SULFA (SULFONAMIDE ANTIBIOTICS) (Verified Allergy, Unknown, 02/04/18) SULFACETAMIDE (Unverified Allergy, Unknown, 06/24/18) Subjective care noted no distress findings discussed underwent tap imaging noted Objective Last 24 Hour Vital Signs Date Time Temp Pulse Resp B/P (MAP) Pulse Ox O2 Delivery O2 Flow Rate FiO2 07/07/18 09:47 157/70 07/07/18 09:47 60 157/70 07/07/18 09:47 60 157/70 07/07/18 09:00 Nasal Cannula 2.0 Nasal Cannula 2.0 07/07/18 08:00 65 07/07/18 08:00 98.1 60 20 157/70 (99) 100 98.1 07/07/18 07:45 62 22 100 Nasal Cannula 2.0 28 07/07/18 07:30 98 Nasal Cannula 2.0 28 07/07/18 07:30 61 20 98 Nasal Cannula 2.0 28 07/07/18 07:30 Nasal Cannula 2.0 28 07/07/18 04:00 97.3 62 22 145/78 (100) 100 97.3 07/07/18 04:00 58 07/07/18 03:40 59 20 100 Nasal Cannula 2.0 28 07/07/18 03:07 59 21 98 Nasal Cannula 2.0 28 07/07/18 00:00 60 07/07/18 00:00 97.5 56 21 133/65 (87) 99 97.5 07/06/18 23:29 59 20 100 Nasal Cannula 2.0 28 07/06/18 23:18 58 20 99 Nasal Cannula 2.0 28 07/06/18 21:20 65 144/75 07/06/18 21:19 65 144/75 07/06/18 21:00 Nasal Cannula 2.0 Nasal Cannula 2.0 07/06/18 20:00 61 07/06/18 20:00 97.9 65 22 144/75 (98) 99 97.9 07/06/18 19:49 71 20 100 Nasal Cannula 2.0 28 07/06/18 19:42 Nasal Cannula 2.0 28 07/06/18 19:41 100 Nasal Cannula 2.0 28 07/06/18 19:40 62 20 99 Nasal Cannula 2.0 28 07/06/18 16:00 98.1 58 20 143/73 (96) 100 98.1 07/06/18 16:00 58 07/06/18 15:16 73 20 100 Nasal Cannula 2.0 28 07/06/18 15:09 70 20 98 Nasal Cannula 2.0 28 07/06/18 12:00 97.7 56 20 123/57 (79) 99 97.7 07/06/18 12:00 56 Intake and Output 07/06/18 07/07/18 19:00 07:00 Intake Total 650 ml Output Total 800 ml 400 ml Balance -800 ml 250 ml Intake Free Water 200 ml Tube Feeding 450 ml Output Urine Total 800 ml 400 ml # Voids 3 # Bowel Movements 1 Objective GENERAL: A female who is chronically ill, advanced age. NAD HEENT: Negative. NECK: Supple. LUNGS: no rhonchi. Moderate air entry reduced in both bases. stable CARDIAC: S1 and S2. Regular rate and rhythm without murmurs, rubs, or gallops. ABDOMEN: Soft, nontender, nondistended. no HSM EXTREMITIES: No cyanosis or clubbing. Contractures noted overall. SKIN: Noted and reviewed. reviewed and edited Microbiology Date/Time Source Procedure Growth Status 07/06/18 14:05 Body Fluid Left Side Gram Stain - Final Resulted 07/06/18 14:05 Body Fluid Left Side Body Fluid Culture - Preliminary NO GROWTH Resulted Laboratory Tests 07/06/18 14:05: Body Fluid Source Thoracentesis, Body Fluid Volume 24, Body Fluid Appearance Hazy, Body Fluid RBC 5413, Body Fluid Total Nucleated Cells 213, Body Fluid Polynuclear WBCs (%) 29, Body Fluid Mononuclear WBCs (%) 62, Body Fluid Mesothelial Cells (%) 9, Body Fluid Total Protein [Pending], Body Fluid Lactate Dehydrogenase [Pending] Current Medications Medications (Trade) Dose Ordered Sig/Singh Route PRN Reason Start Time Stop Time Status Last Admin Dose Admin Acetaminophen (Tylenol) 650 mg Q4H PRN ORAL Mild Pain/Temp > 100.5 07/05/18 07:45 07/28/18 07:44 Acetylcysteine (Mucomyst) 200 mg Q4HRT HHN 07/05/18 15:00 08/04/18 14:59 07/07/18 07:31 Amlodipine Besylate (Norvasc) 5 mg EVERY 12 HOURS ORAL 07/05/18 09:00 07/24/18 20:59 07/07/18 09:47 Aspirin (ASA) 81 mg DAILY GT 07/05/18 09:00 07/25/18 08:59 07/07/18 09:47 Atorvastatin Calcium (Lipitor) 10 mg BEDTIME GT 07/05/18 21:00 07/24/18 20:59 07/06/18 21:19 Carvedilol (Coreg) 12.5 mg EVERY 12 HOURS GT 07/05/18 09:00 07/28/18 08:59 07/07/18 09:47 Ciprofloxacin (Cipro 500mg tab) 500 mg EVERY 12 HOURS GT 07/07/18 21:00 07/14/18 20:59 Ciprofloxacin (Cipro 500mg tab) 500 mg ONCE GT 07/07/18 11:15 07/07/18 12:15 Clonidine HCl (Catapres Tab) 0.1 mg Q6H PRN ORAL For High Blood Pressure 07/05/18 07:45 07/24/18 07:44 Dextrose (Dextrose 50%) 25 ml STAT PRN IV Hypoglycemia 07/05/18 07:45 08/04/18 07:44 Dextrose (Dextrose 50%) 50 ml STAT PRN IV Hypoglycemia 07/05/18 07:45 08/04/18 07:44 Docusate Sodium (Colace) 100 mg DAILY GT 07/05/18 09:00 08/01/18 08:59 07/07/18 09:45 Furosemide (Lasix) 40 mg DAILY IV 07/05/18 09:00 07/31/18 08:59 07/07/18 09:46 Heparin Sodium (Porcine) (Heparin 5000 units/ml) 5,000 units EVERY 12 HOURS SUBQ 07/05/18 09:00 07/25/18 08:59 07/07/18 09:54 Insulin Aspart (NovoLOG) Q6HR SUBQ 07/05/18 12:00 07/25/18 06:59 Ipratropium [place] (Atrovent) 500 mcg Q4H PRN HHN Shortness of Breath 07/05/18 10:00 07/10/18 09:59 07/07/18 07:31 Lansoprazole (Prevacid) 30 mg Q12HR GT 07/05/18 09:00 08/03/18 20:59 07/07/18 09:47 Levetiracetam (Keppra) 400 mg Q12HR GT 07/05/18 09:00 07/24/18 20:59 07/07/18 09:46 Losartan Potassium (Cozaar) 50 mg DAILY ORAL 07/05/18 09:00 08/03/18 08:59 07/07/18 09:47 Phenytoin (Dilantin) 125 mg Q12HR GT 07/05/18 09:00 07/24/18 20:59 07/07/18 09:46 Navdeep Mcgowan MD Jul 07, 2018 11:24
[2018-07-07 12:00] VITALS: BP 168/85
[2018-07-07 16:00] VITALS: BP 146/65
--- NOTE | 2018-07-07 16:05 | General Progress Note ---
Assessment/Plan Problem List: (1) Acute on chronic diastolic (congestive) heart failure ICD Codes: I50.33 - Acute on chronic diastolic (congestive) heart failure SNOMED: 14210969, 596883110 (2) Dyspnea ICD Codes: R06.00 - Dyspnea, unspecified SNOMED: 515670386 (3) Respiratory distress ICD Codes: R06.03 - Acute respiratory distress SNOMED: 272783767 (4) UTI (urinary tract infection) ICD Codes: N39.0 - Urinary tract infection, site not specified SNOMED: 22728815 Qualifiers: Qualified Codes: N39.0 - Urinary tract infection, site not specified (5) Hypoxia ICD Codes: R09.02 - Hypoxemia SNOMED: 002328373 (6) Pneumonia ICD Codes: J18.9 - Pneumonia, unspecified organism SNOMED: 075122962 Qualifiers: Qualified Codes: J18.9 - Pneumonia, unspecified organism Status: stable, progressing Assessment/Plan iv diuresis keep negative resp rx suctioning chest pt tube feeds monitor for aspiration monitor cxr replace lytes as needed BP rx not ready for dc possible dc tomorrow if cleared by all Subjective ROS Limited/Unobtainable: Yes Constitutional: Reports: malaise, weakness HEENT: Reports: no symptoms Cardiovascular: Reports: no symptoms Respiratory: Reports: shortness of breath, sputum Gastrointestinal/Abdominal: Reports: no symptoms Genitourinary: Reports: no symptoms Neurologic/Psychiatric: Reports: pre-existing deficit, seizure Endocrine: Reports: no symptoms Hematologic/Lymphatic: Reports: no symptoms Allergies: Coded Allergies: PENICILLINS (Verified Allergy, Unknown, 02/04/18) SULFA (SULFONAMIDE ANTIBIOTICS) (Verified Allergy, Unknown, 02/04/18) SULFACETAMIDE (Unverified Allergy, Unknown, 06/24/18) Subjective stable. s/p uncomplicated left thoracentesis cxr with left effusion but new effusion/infiltrate on the right on gt feeds iv abx iv lasix Objective Last 24 Hour Vital Signs Date Time Temp Pulse Resp B/P (MAP) Pulse Ox O2 Delivery O2 Flow Rate FiO2 07/07/18 15:25 69 17 96 Nasal Cannula 2.0 28 07/07/18 15:05 67 19 97 Nasal Cannula 2.0 28 07/07/18 12:00 63 07/07/18 12:00 97.8 64 168/85 (112) 97.8 07/07/18 11:59 168/85 07/07/18 11:45 64 18 100 Nasal Cannula 2.0 28 07/07/18 11:22 62 21 97 Nasal Cannula 2.0 28 07/07/18 09:47 157/70 07/07/18 09:47 60 157/70 07/07/18 09:47 60 157/70 07/07/18 09:00 Nasal Cannula 2.0 Nasal Cannula 2.0 07/07/18 08:00 65 07/07/18 08:00 98.1 60 20 157/70 (99) 100 98.1 07/07/18 07:45 62 22 100 Nasal Cannula 2.0 28 07/07/18 07:30 98 Nasal Cannula 2.0 28 07/07/18 07:30 61 20 98 Nasal Cannula 2.0 28 07/07/18 07:30 Nasal Cannula 2.0 28 07/07/18 04:00 97.3 62 22 145/78 (100) 100 97.3 07/07/18 04:00 58 07/07/18 03:40 59 20 100 Nasal Cannula 2.0 28 07/07/18 03:07 59 21 98 Nasal Cannula 2.0 28 07/07/18 00:00 60 07/07/18 00:00 97.5 56 21 133/65 (87) 99 97.5 07/06/18 23:29 59 20 100 Nasal Cannula 2.0 28 07/06/18 23:18 58 20 99 Nasal Cannula 2.0 07/06/18 21:20 65 144/75 07/06/18 21:19 65 144/75 07/06/18 21:00 Nasal Cannula 2.0 Nasal Cannula 2.0 07/06/18 20:00 61 07/06/18 20:00 97.9 65 22 144/75 (98) 99 97.9 07/06/18 19:49 71 20 100 Nasal Cannula 2.0 07/06/18 19:42 Nasal Cannula 2.0 07/06/18 19:41 100 Nasal Cannula 2.0 28 07/06/18 19:40 62 20 99 Nasal Cannula 2.0 28 07/06/18 16:00 98.1 58 20 143/73 (96) 100 98.1 07/06/18 16:00 58 Intake and Output 9/10/18 9/11/18 19:00 07:00 Intake Total 650 ml Output Total 800 ml 400 ml Balance -800 ml 250 ml Intake Free Water 200 ml Tube Feeding 450 ml Output Urine Total 800 ml 400 ml # Voids 3 # Bowel Movements 1 Height (Feet): 5 Height (Inches): 5.00 Weight (Pounds): 171 Objective General Appearance: WD/WN, alert Neck: supple Cardiovascular: regular rhythm Respiratory/Chest: rhonchi edwige Abdomen: normal bowel sounds, non tender, soft, no organomegaly Edema: no edema noted Arm (L), no edema noted Arm (R), no edema noted Leg (L), no edema noted Leg (R), no edema noted Pedal (L), no edema noted Pedal (R), no edema noted Generalized Neurologic: disoriented, unresponsive, aphasia Michael Sprague MD Jul 07, 2018 16:05
[2018-07-07 20:00] VITALS: BP 126/72
[2018-07-07] MEDS: Ciprofloxacin 500mg tab GT SCH (20:45)
[2018-07-08] VITALS: BP 149/76
[2018-07-08] MEDS: Acetylcysteine 20% Soln 4ml HHN SCH ×3 (03:00→12:06)
[2018-07-08] MEDS: Ipratropium 0.02% Inh Soln 2.5ml UD HHN PRN ×3 (03:01→12:06)
[2018-07-08 04:00] VITALS: BP 130/70
[2018-07-08] MEDS: NovoLOG Insulin Flexpen SUBQ SCH ×3 (05:32→11:58)
--- NOTE | 2018-07-08 06:30 | Progress Note ---
DATE: 07/07/2018 CARDIOLOGY PROGRESS NOTE SUBJECTIVE: The patient is status post left thoracentesis. New chest x-ray reveals reduced left effusion, but new right effusion and infiltrate. OBJECTIVE: VITAL SIGNS: Blood pressure 165/85, pulse 64, respirations 18, afebrile, and oxygen saturation is 96% on 2 liters of nasal cannula. LUNGS: Scattered rhonchi. Diminished breath sounds. CARDIOVASCULAR: Regular rhythm and rate. Normal S1 and S2. ABDOMEN: Soft. EXTREMITIES: Trace edema. IMPRESSION: 1. Bilateral pleural effusions. 2. Aspiration pneumonia. 3. Dysphagia with gastrostomy tube. 4. Cerebrovascular disease with dementia. 5. Acute on chronic diastolic congestive heart failure. 6. Hypertensive heart disease with labile blood pressure. PLAN: 1. Antimicrobials. 2. Respiratory hygiene. 3. No plans for repeat thoracentesis presently. 4. Transition to maintenance dose. 5. Oral diuretics. 6. Continue beta-sridhar. 7. Titrate antihypertensives including amlodipine and losartan. 8. Discharge planning. Marva William JOB#: [id number] CC:
[2018-07-08 08:00] VITALS: BP 130/57
[2018-07-08 08:21] LABS: BASOPHILS % (AUTO) 1.6 % (0.0-2.0); EOSINOPHILS % (AUTO) 3.3 % (0.0-3.0); HEMATOCRIT 35.9 % (37.0-47.0); HEMOGLOBIN 11.7 G/DL (12.0-16.0); LYMPHOCYTES % (AUTO) 30.3 % (20.0-45.0); MEAN CORPUSCULAR VOLUME 100 FL (80-99); MONOCYTES % (AUTO) 8.8 % (1.0-10.0); PLATELET COUNT 165 K/UL (150-450); RED BLOOD COUNT 3.58 M/UL (4.20-5.40); RED CELL DISTRIBUTION WIDTH 13.2 % (11.6-14.8); WHITE BLOOD COUNT 4.7 K/UL (4.8-10.8)
--- NOTE | 2018-07-08 08:43 | Pulmonology Progress Note ---
Assessment/Plan Assessment/Plan IMPRESSION: hypoxemia, possible mucus plugging, pneumonia, pleural effusions, respiratory insufficiency, protein-calorie malnutrition, dementia, aspiration, G-tube, prior history of CVA. pleural effusion s/p tap PLAN keep negative as able fluid transudative follow up fluid results c/w transudate; would need to maintain adequate diuresis respiratory care noted oxygen monitoring for change aspiration precautions monitor I and O as able monitor imaging; for change dc planning to SNF if remains stable impression, plan, and exam edited and reviewed in detail care discussed with RN Subjective ROS Limited/Unobtainable: Yes Allergies: Coded Allergies: PENICILLINS (Verified Allergy, Unknown, 02/04/18) SULFA (SULFONAMIDE ANTIBIOTICS) (Verified Allergy, Unknown, 02/04/18) SULFACETAMIDE (Unverified Allergy, Unknown, 06/24/18) Subjective care noted no distress at present findings discussed underwent tap and stable imaging noted Objective Last 24 Hour Vital Signs Date Time Temp Pulse Resp B/P (MAP) Pulse Ox O2 Delivery O2 Flow Rate FiO2 07/08/18 08:00 97.0 60 20 130/57 (81) 100 97.0 07/08/18 07:53 60 20 100 Nasal Cannula 2.0 28 07/08/18 07:47 60 20 99 Nasal Cannula 2.0 28 07/08/18 07:46 Nasal Cannula 2.0 28 07/08/18 07:45 99 Nasal Cannula 2.0 28 07/08/18 04:00 59 07/08/18 04:00 97.9 58 20 130/70 (90) 100 97.9 07/08/18 03:10 73 18 99 Nasal Cannula 2.0 28 07/08/18 03:00 62 16 97 Nasal Cannula 2.0 28 07/08/18 00:00 62 07/08/18 00:00 97.4 64 20 149/76 (100) 98 97.4 07/07/18 23:43 72 18 99 Nasal Cannula 2.0 28 07/07/18 23:33 83 18 97 Nasal Cannula 2.0 28 07/07/18 21:00 Nasal Cannula 2.0 Nasal Cannula 2.0 07/07/18 20:47 67 139/73 07/07/18 20:47 67 139/73 07/07/18 20:00 97.9 62 22 126/72 (90) 94 97.9 07/07/18 20:00 62 07/07/18 19:25 65 18 99 Nasal Cannula 2.0 28 07/07/18 19:15 Nasal Cannula 2.0 28 07/07/18 19:15 62 18 98 Nasal Cannula 2.0 28 07/07/18 19:15 98 Nasal Cannula 2.0 28 07/07/18 16:00 60 07/07/18 16:00 97.5 63 20 146/65 (92) 97 97.5 07/07/18 15:25 69 17 96 Nasal Cannula 2.0 28 07/07/18 15:05 67 19 97 Nasal Cannula 2.0 28 07/07/18 12:00 63 07/07/18 12:00 97.8 64 20 168/85 (112) 100 97.8 07/07/18 11:59 168/85 07/07/18 11:45 64 18 100 Nasal Cannula 2.0 28 07/07/18 11:22 62 21 97 Nasal Cannula 2.0 28 07/07/18 09:47 157/70 07/07/18 09:47 60 157/70 07/07/18 09:47 60 157/70 07/07/18 09:00 Nasal Cannula 2.0 Nasal Cannula 2.0 Intake and Output 07/07/18 07/08/18 19:00 07:00 Intake Total 550 ml Output Total 800 ml 350 ml Balance -250 ml -350 ml Free Water 300 ml Tube Feeding 250 ml Output Urine Total 800 ml 350 ml Objective GENERAL: A female who is chronically ill, advanced age. NAD HEENT: Negative. NECK: Supple. LUNGS: no rhonchi. Moderate air entry reduced in both bases. stable CARDIAC: S1 and S2. Regular rate and rhythm without murmurs, rubs, or gallops. ABDOMEN: Soft, nontender, nondistended. no HSM EXTREMITIES: No cyanosis or clubbing. Contractures noted overall. SKIN: Noted and reviewed. reviewed and edited Microbiology Date/Time Source Procedure Growth Status 07/06/18 14:05 Body Fluid Left Side Gram Stain - Final Resulted 07/06/18 14:05 Body Fluid Left Side Body Fluid Culture - Preliminary NO GROWTH Resulted Laboratory Tests 07/08/18 07:05: White Blood Count 4.7L, Red Blood Count 3.58L, Hemoglobin 11.7L, Hematocrit 35.9L, Mean Corpuscular Volume 100H, Mean Corpuscular Hemoglobin 32.8H, Mean Corpuscular Hemoglobin Concent 32.7, Red Cell Distribution Width 13.2, Platelet Count 165, Mean Platelet Volume 8.9, Neutrophils (%) (Auto) 56.0, Lymphocytes (% ) (Auto) 30.3, Monocytes (%) (Auto) 8.8, Eosinophils (%) (Auto) 3.3H, Basophils (%) (Auto) 1.6, Sodium Level [Pending], Potassium Level [Pending], Chloride Level [Pending], Carbon Dioxide Level [Pending], Blood Urea Nitrogen [Pending], Creatinine [Pending], Estimat Glomerular Filtration Rate [Pending], Glucose Level [Pending], Calcium Level [Pending], Magnesium Level [Pending], Total Bilirubin [Pending], Aspartate Amino Transf (AST/SGOT) [Pending], Alanine Aminotransferase (ALT/SGPT) [Pending], Alkaline Phosphatase [Pending], Pro-B- Type Natriuretic Peptide [Pending], Total Protein [Pending], Albumin [Pending], Globulin [Pending] Current Medications Medications (Trade) Dose Ordered Sig/Singh Route PRN Reason Start Time Stop Time Status Last Admin Dose Admin Acetaminophen (Tylenol) 650 mg Q4H PRN ORAL Mild Pain/Temp > 100.5 07/05/18 07:45 07/28/18 07:44 Acetylcysteine (Mucomyst) 200 mg Q4HRT HHN 07/05/18 15:00 08/04/18 14:59 07/08/18 07:44 Amlodipine Besylate (Norvasc) 5 mg EVERY 12 HOURS ORAL 07/05/18 09:00 07/24/18 20:59 07/07/18 20:47 Aspirin (ASA) 81 mg DAILY GT 07/05/18 09:00 07/25/18 08:59 07/07/18 09:47 Atorvastatin Calcium (Lipitor) 10 mg BEDTIME GT 07/05/18 21:00 07/24/18 20:59 07/07/18 20:46 Carvedilol (Coreg) 12.5 mg EVERY 12 HOURS GT 07/05/18 09:00 07/28/18 08:59 07/07/18 20:47 Ciprofloxacin (Cipro 500mg tab) 500 mg EVERY 12 HOURS GT 07/07/18 21:00 07/14/18 20:59 07/07/18 20:45 Clonidine HCl (Catapres Tab) 0.1 mg Q6H PRN ORAL For High Blood Pressure 07/05/18 07:45 07/24/18 07:44 07/07/18 11:59 Dextrose (Dextrose 50%) 25 ml STAT PRN IV Hypoglycemia 07/05/18 07:45 08/04/18 07:44 Dextrose (Dextrose 50%) 50 ml STAT PRN IV Hypoglycemia 07/05/18 07:45 08/04/18 07:44 Docusate Sodium (Colace) 100 mg DAILY GT 07/05/18 09:00 08/01/18 08:59 07/07/18 09:45 Furosemide (Lasix) 40 mg DAILY IV 07/05/18 09:00 07/08/18 11:00 07/07/18 09:46 Furosemide (Lasix) 40 mg DAILY ORAL 07/09/18 09:00 08/08/18 08:59 Heparin Sodium (Porcine) (Heparin 5000 units/ml) 5,000 units EVERY 12 HOURS SUBQ 07/05/18 09:00 07/25/18 08:59 07/07/18 20:49 Insulin Aspart (NovoLOG) Q6HR SUBQ 07/05/18 12:00 07/25/18 06:59 Ipratropium [place] (Atrovent) 500 mcg Q4H PRN HHN Shortness of Breath 07/05/18 10:00 07/10/18 09:59 07/08/18 07:44 Lansoprazole (Prevacid) 30 mg Q12HR GT 07/05/18 09:00 08/03/18 20:59 07/07/18 20:47 Levetiracetam (Keppra) 400 mg Q12HR GT 07/05/18 09:00 07/24/18 20:59 07/07/18 20:45 Losartan Potassium (Cozaar) 100 mg DAILY ORAL 07/08/18 09:00 08/07/18 08:59 Phenytoin (Dilantin) 125 mg Q12HR GT 07/05/18 09:00 07/24/18 20:59 07/07/18 20:45 Navdeep Mcgowan MD Jul 08, 2018 08:43
[2018-07-08] MEDS ORDERED: Losartan 50mg tab ORAL SCH (09:00)
[2018-07-08 09:02] LABS: ALANINE AMINOTRANSFERASE 14 U/L (12-78); ALBUMIN 2.5 G/DL (3.4-5.0); ALBUMIN/GLOBULIN RATIO 0.6 (1.0-2.7); ALKALINE PHOSPHATASE 109 U/L (46-116); ANION GAP 5 mmol/L (5-15); ASPARTATE AMINO TRANSFERASE 20 U/L (15-37); BILIRUBIN,TOTAL 0.3 MG/DL (0.2-1.0); BLOOD UREA NITROGEN 16 mg/dL (7-18); CALCIUM 9.1 MG/DL (8.5-10.1); CARBON DIOXIDE 37 MMOL/L (21-32); CHLORIDE 101 MMOL/L (98-107); CREATININE 0.5 MG/DL (0.55-1.30); POTASSIUM 2.8 MMOL/L (3.5-5.1); SODIUM 143 MMOL/L (136-145)
[2018-07-08] MEDS ORDERED: FUROSEMIDE40 MG ORAL (09:08)
[2018-07-08] MEDS: levETIRAcetam 500mg/5ml Liquid GT SCH (09:33)
[2018-07-08] MEDS: Phenytoin Susp 100mg/4ml GT SCH (09:33)
[2018-07-08] MEDS: Docusate 100mg/10ml Liq GT SCH (09:33)
[2018-07-08] MEDS: Aspirin Baby 81mg GT SCH (09:34)
[2018-07-08] MEDS: Carvedilol 6.25mg Tab GT SCH (09:35)
[2018-07-08] MEDS: Ciprofloxacin 500mg tab GT SCH (09:35)
[2018-07-08] MEDS: Heparin 5000 units/ml inj SUBQ SCH (09:50)
--- NOTE | 2018-07-08 11:10 | Diagnostic Imaging Report ---
Indication: Cough Technique: One view of the chest Comparison: 07/06/2018 Findings: Previously demonstrated right pleural effusion is no longer evident. Previously demonstrated retrocardiac opacity persists, and left hemidiaphragm remains obscured. Interim improvement of previously demonstrated interstitial congestion Impression: Resolved interstitial congestion and right pleural effusion, over 2 days Stable retrocardiac consolidation and likely pleural fluid on the left
[2018-07-08 12:00] VITALS: BP 127/89
[2018-07-08] MEDS ORDERED: CIPRO500 MG/51 PO (13:11)
--- NOTE | 2018-07-08 13:16 | General Progress Note ---
Assessment/Plan Problem List: (1) Acute on chronic diastolic (congestive) heart failure ICD Codes: I50.33 - Acute on chronic diastolic (congestive) heart failure SNOMED: 91682709, 584885316 (2) Dyspnea ICD Codes: R06.00 - Dyspnea, unspecified SNOMED: 981549628 (3) Respiratory distress ICD Codes: R06.03 - Acute respiratory distress SNOMED: 465692812 (4) UTI (urinary tract infection) ICD Codes: N39.0 - Urinary tract infection, site not specified SNOMED: 99254606 Qualifiers: Qualified Codes: N39.0 - Urinary tract infection, site not specified (5) Hypoxia ICD Codes: R09.02 - Hypoxemia SNOMED: 241694036 (6) Pneumonia ICD Codes: J18.9 - Pneumonia, unspecified organism SNOMED: 873041205 Qualifiers: Qualified Codes: J18.9 - Pneumonia, unspecified organism Status: stable Assessment/Plan po diuresis keep negative/even at snf resp rx suctioning tube feeds monitor for aspiration BP rx dc today cipro per ID Subjective ROS Limited/Unobtainable: Yes Constitutional: Reports: malaise, weakness HEENT: Reports: no symptoms Cardiovascular: Reports: no symptoms Respiratory: Reports: no symptoms Gastrointestinal/Abdominal: Reports: no symptoms Genitourinary: Reports: no symptoms Endocrine: Reports: no symptoms Hematologic/Lymphatic: Reports: no symptoms Allergies: Coded Allergies: PENICILLINS (Verified Allergy, Unknown, 02/04/18) SULFA (SULFONAMIDE ANTIBIOTICS) (Verified Allergy, Unknown, 02/04/18) SULFACETAMIDE (Unverified Allergy, Unknown, 06/24/18) Subjective no events. w/o complaints. stable. no fever or chills. no sob or congestion Objective Last 24 Hour Vital Signs Date Time Temp Pulse Resp B/P (MAP) Pulse Ox O2 Delivery O2 Flow Rate FiO2 07/08/18 12:15 62 22 100 Nasal Cannula 2.0 28 07/08/18 12:07 57 20 100 Nasal Cannula 2.0 28 07/08/18 09:35 60 130/57 07/08/18 09:35 60 130/57 07/08/18 09:34 130/57 07/08/18 08:00 97.0 60 20 130/57 (81) 100 97.0 07/08/18 08:00 59 07/08/18 07:53 60 20 100 Nasal Cannula 2.0 28 07/08/18 07:47 60 20 99 Nasal Cannula 2.0 28 07/08/18 07:46 Nasal Cannula 2.0 28 07/08/18 07:45 99 Nasal Cannula 2.0 28 07/08/18 04:00 59 07/08/18 04:00 97.9 58 20 130/70 (90) 100 97.9 07/08/18 03:10 73 18 99 Nasal Cannula 2.0 28 07/08/18 03:00 62 16 97 Nasal Cannula 2.0 28 07/08/18 00:00 62 07/08/18 00:00 97.4 64 20 149/76 (100) 98 97.4 07/07/18 23:43 72 18 99 Nasal Cannula 2.0 28 07/07/18 23:33 83 18 97 Nasal Cannula 2.0 28 07/07/18 21:00 Nasal Cannula 2.0 Nasal Cannula 2.0 07/07/18 20:47 67 139/73 07/07/18 20:47 67 139/73 07/07/18 20:00 97.9 62 22 126/72 (90) 94 97.9 07/07/18 20:00 62 07/07/18 19:25 65 18 99 Nasal Cannula 2.0 28 07/07/18 19:15 Nasal Cannula 2.0 28 07/07/18 19:15 62 18 98 Nasal Cannula 2.0 28 07/07/18 19:15 98 Nasal Cannula 2.0 28 07/07/18 16:00 60 07/07/18 16:00 97.5 63 20 146/65 (92) 97 97.5 07/07/18 15:25 69 17 96 Nasal Cannula 2.0 28 07/07/18 15:05 67 19 97 Nasal Cannula 2.0 28 Intake and Output 07/07/18 07/08/18 19:00 07:00 Intake Total 550 ml Output Total 800 ml 350 ml Balance -250 ml -350 ml Free Water 300 ml Tube Feeding 250 ml Output Urine Total 800 ml 350 ml Laboratory Tests 07/08/18 07:05: White Blood Count 4.7L, Red Blood Count 3.58L, Hemoglobin 11.7L, Hematocrit 35.9L, Mean Corpuscular Volume 100H, Mean Corpuscular Hemoglobin 32.8H, Mean Corpuscular Hemoglobin Concent 32.7, Red Cell Distribution Width 13.2, Platelet Count 165, Mean Platelet Volume 8.9, Neutrophils (%) (Auto) 56.0, Lymphocytes (% ) (Auto) 30.3, Monocytes (%) (Auto) 8.8, Eosinophils (%) (Auto) 3.3H, Basophils (%) (Auto) 1.6, Sodium Level 143, Potassium Level 2.8L, Chloride Level 101, Carbon Dioxide Level 37H, Anion Gap 5, Blood Urea Nitrogen 16, Creatinine 0.5L, Estimat Glomerular Filtration Rate , Glucose Level 131H, Calcium Level 9.1, Magnesium Level 2.0, Total Bilirubin 0.3, Aspartate Amino Transf (AST/SGOT) 20, Alanine Aminotransferase (ALT/SGPT) 14, Alkaline Phosphatase 109, Pro-B-Type Natriuretic Peptide 2504H, Total Protein 6.8, Albumin 2.5L, Globulin 4.3, Albumin/Globulin Ratio 0.6L Height (Feet): 5 Height (Inches): 5.00 Weight (Pounds): 182 Objective General Appearance: WD/WN, alert Neck: supple Cardiovascular: regular rhythm Respiratory/Chest: rhonchi edwige Abdomen: normal bowel sounds, non tender, soft, no organomegaly Edema: no edema noted Arm (L), no edema noted Arm (R), no edema noted Leg (L), no edema noted Leg (R), no edema noted Pedal (L), no edema noted Pedal (R), no edema noted Generalized Neurologic: disoriented, unresponsive, aphasia Michael Sprague MD Jul 08, 2018 13:16
[2018-07-08 16:00] VITALS: BP 138/68
[2018-07-08] MEDS ORDERED: Sterile Water Irrig 1000ml IRRIG ONE (17:59)
--- NOTE | 2018-07-09 00:30 | Discharge Summary ---
DATE OF ADMISSION: 06/24/2018 DATE OF DISCHARGE: 07/08/2018 ADMISSION DIAGNOSES: 1. Respiratory failure. 2. Toxic metabolic encephalopathy. 3. Acute on chronic diastolic heart failure exacerbation. 4. Hypertension. 5. Diabetes. 6. Seizure disorder. 7. Encephalopathy. 8. Stroke. 9. Functional quadriplegia. DISCHARGE DIAGNOSES: 1. Respiratory failure. 2. Toxic metabolic encephalopathy. 3. Acute on chronic diastolic heart failure exacerbation. 4. Hypertension. 5. Diabetes. 6. Seizure disorder. 7. Encephalopathy. 8. Stroke. 9. Functional quadriplegia. HOSPITAL COURSE: The patient is a pleasant female. She has a prior history of chronic encephalopathy and she was admitted with complaints of shortness of breath secondary to possible pneumonia and congestive heart failure exacerbation. She was aggressively diuresed. She received IV antibiotics for pneumonia. She was continued on respiratory treatments, her antihypertensive regimen, diabetic regimen as well as seizure medications. She improved, but upon the day of discharge, became acutely more short of breath. She required transfer down to our monitored unit. Her blood gases were stable. Her x-ray showed worsening congestive heart failure. She was started back on intravenous Lasix. She developed a white-out of the left lung. She received aggressive chest physiotherapy, suctioning, and breathing treatments and this did improve. The patient was continued on IV diuretic therapy. On discharge, the patient's breathing had improved. She will be discharged back to the [facility] facility with close monitoring of her volume status, electrolytes, and renal function. The plan of care was discussed extensively with the patient's family members. DISCHARGE MEDICATIONS: Please see discharge medication list for discharge medications. DIET: G-tube feedings. ACTIVITY: Ad-Giovanna. FOLLOWUP: The patient to follow-up in one to two days at the [facility] facility. Michael Sprague M.D. DR: STEPHIE JOB#: [id number] CC:
--- NOTE | 2018-07-09 00:45 | Progress Note ---
DATE: 07/08/2018 CARDIOLOGY PROGRESS NOTE SUBJECTIVE: The patient without distress. No shortness of breath. She is status post thoracentesis. OBJECTIVE: VITAL SIGNS: Blood pressure 130/57, pulse 60, respirations 20, and afebrile. LUNGS: Bilateral breath sounds. No wheezing. HEART: Regular rhythm and rate. Normal S1, S2 with a fourth heart sound and a 1/6 systolic murmur at apex. ABDOMEN: Soft, nontender. EXTREMITIES: No edema. LABORATORY DATA: White count 4.7, hemoglobin 11.7. Sodium 143, potassium 2.8, bicarbonate 37, BUN 16, creatinine 0.5, and magnesium 2.0. Pro-natriuretic peptide has decreased to 2500 from a peak of over 11,000. IMPRESSION: 1. Healthcare-acquired pneumonia. 2. Pleural effusion, status post thoracentesis. 3. Acute on chronic diastolic congestive heart failure, now compensated. 4. Hypokalemia post diuresis. 5. Myocardial ischemia, resolved. 6. Hypertensive heart disease, now controlled. PLAN: 1. Replace potassium. 2. Transfer to half-way facility for long-term care. 3. Discharge medication regimen reviewed and reconciled with all therapy transition to oral dosing. 4. Follow up chemistry panel on a regular basis specifically with regard to potassium levels. 5. Aspiration precautions. 6. Follow up chest x-rays. Brayan Card M.D. DR: NGOC JOB#: [id number] CC:
[2018-07-09] MEDS ORDERED: Furosemide 40mg tab ORAL SCH (09:00)
== END 2018-07-08 18:00 | DRG 177 ==
LOC: EDBD 13:39 → EMR 14:20 → 4E 17:30 → EDBEDREQSVC 17:45 → EDBEDREQ 17:45 → 2W 06-30 23:59 → 2E 07-05 07:29
PROC: 05HM33Z Insertion of Infusion Device into Right Internal Jugular Vein, Percutaneous Approach (ICD-10-PCS; principal; 2018-06-24)
PROC: 0W9B3ZZ Drainage of Left Pleural Cavity, Percutaneous Approach (ICD-10-PCS; 2018-07-06)
DX: J15.1 Pneumonia due to Pseudomonas (principal); G92 Toxic encephalopathy; R53.2 Functional quadriplegia; I50.33 Acute on chronic diastolic (congestive) heart failure; J96.01 Acute respiratory failure with hypoxia; E43 Unspecified severe protein-calorie malnutrition; J90 Pleural effusion, not elsewhere classified; N39.0 Urinary tract infection, site not specified; J44.0 Chronic obstructive pulmonary disease with (acute) lower respiratory infection; J69.0 Pneumonitis due to inhalation of food and vomit; I16.0 Hypertensive urgency; I11.0 Hypertensive heart disease with heart failure; E11.9 Type 2 diabetes mellitus without complications; G40.909 Epilepsy, unspecified, not intractable, without status epilepticus; Z86.73 Personal history of transient ischemic attack (TIA), and cerebral infarction without residual deficits; I25.2 Old myocardial infarction; Z93.1 Gastrostomy status; B96.20 Unspecified Escherichia coli [E. coli] as the cause of diseases classified elsewhere; I25.10 Atherosclerotic heart disease of native coronary artery without angina pectoris; R13.10 Dysphagia, unspecified; T17.990A Other foreign object in respiratory tract, part unspecified in causing asphyxiation, initial encounter; X58.XXXA Exposure to other specified factors, initial encounter; Y92.9 Unspecified place or not applicable; I25.5 Ischemic cardiomyopathy; F03.90 Unspecified dementia, unspecified severity, without behavioral disturbance, psychotic disturbance, mood disturbance, and anxiety; Z68.30 Body mass index [BMI] 30.0-30.9, adult; E87.6 Hypokalemia
CPT/HCPCS: 36415; 36600; 71045; 76942; 80048; 80053; 80202; 81003; 82550; 82803; 82962; 83605; 83735; 83880; 84443; 84484; 85025; 85610; 85730; 87040; 87070; 87081; 87086; 87181; 87205; 88104; 89051; 93005; 93970; 94640; 94664; 94760; 99285; J1815; J2405; J7620; J8499

== ENCOUNTER 2019-03-09 13:42 | Inpatient (IN) | payer MEDICARE, MEDICAID ==
[2019-03-09] VITALS (29 sets, daily range): BP systolic 51–182; BP diastolic 34–87
[~2019-03-09] VITALS: Ht 172.7 cm; Wt 98.1 kg
[~2019-03-09 13:42] MED LIST changes: +ACETAMINOPHEN325 M1 GT; +AMLODIPINE BESYL5 MG GT; +CIPRO500 MG/51 PO; +COLACE100 MG GT; +COREG12.5 MG ORAL; +COREG6.25 MG GT; +CRANBERRY425 MG GT; +FUROSEMIDE20 M1 GT; +FUROSEMIDE40 MG ORAL; +GUAIFENESIN-CO118 M1 ORAL; +KEPPRA LIQ100 MG/1 M GT; +MULTIVITAMINS1 EAC2 GT; +NOVOLOG100 UNIT/5; +PHENYTOIN100 MG/4 M GT; +PROTONIX20 MG GT; +Succinylcholine 20mg/ml 10ml vial ONE; +VITAMIN C500 M1 GT
[2019-03-09] MEDS ORDERED: METOPROLOL TART50 MG ORAL (14:18)
[2019-03-09] MEDS ORDERED: VITAMIN C500 M1 GT (14:18)
[2019-03-09] MEDS ORDERED: GLUCERNA 1.5 C237 ML GT (14:23)
[2019-03-09] MEDS ORDERED: LISINOPRIL40 MG GT (14:23)
[2019-03-09] MEDS ORDERED: METOPROLOL TART50 M1 GT (14:23)
[2019-03-09] MEDS ORDERED: ALBUTEROL2.5 MG/3 M INH (14:23)
--- NOTE | 2019-03-09 14:24 | Diagnostic Imaging Report ---
Indication: Altered mental status Technique: Contiguous 5 mm thick transaxial imaging of the head obtained in a Siemens Sensation [address] scanner. Soft tissue and bone windows generated. Automatic Exposure Control was utilized. Total Dose length Product (DLP): 1340.[address] Dose Index Volume (CTDIvol): 70.38 mGy Comparison: none Findings: There is moderate prominence of the ventricles, basal cisterns, and cerebral sulci consistent with atrophy. Moderate, nonspecific, white matter hypoattenuation is noted throughout the brain consistent with chronic small vessel disease. The white matter low-attenuation is asymmetric and worse on the left side in association with the previous infarction. There is a focus of cortical encephalomalacia involving the left posterior parietal and occipital lobe. No definite evidence of sulcal effacement identified. There is no midline shift, edema, acute hemorrhage, mass effect, or abnormal extra-axial fluid collections. Bones and extra osseous soft tissues are unremarkable. Right sphenoid sinus opacification noted. Impression: No acute intracranial bleed, mass effect or edema. 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 Sinusitis The CT scanner at [facility] is accredited by the [employer] and the scans are performed using dose optimization techniques as appropriate to a performed exam including Automatic Exposure control.
[2019-03-09 14:27] LABS: BASOPHILS % (AUTO) 0.5 % (0.0-2.0); EOSINOPHILS % (AUTO) 1.1 % (0.0-3.0); HEMATOCRIT 39.3 % (37.0-47.0); HEMOGLOBIN 12.1 G/DL (12.0-16.0); LYMPHOCYTES % (AUTO) 17.4 % (20.0-45.0); MEAN CORPUSCULAR VOLUME 106 FL (80-99); MONOCYTES % (AUTO) 3.4 % (1.0-10.0); NEUTROPHILS % (AUTO) 77.6 % (45.0-75.0); PLATELET COUNT 148 K/UL (150-450); RED BLOOD COUNT 3.72 M/UL (4.20-5.40); RED CELL DISTRIBUTION WIDTH 13.9 % (11.6-14.8); WHITE BLOOD COUNT 12.1 K/UL (4.8-10.8)
--- NOTE | 2019-03-09 14:29 | Emergency Room Report ---
History of Present Illness General Chief Complaint: Altered Level of Consciousness Source: Family Member, EMS Present Illness HPI 88-year-old female coming from [facility], bedbound with a PEG tube, coming in for altered mental status. Reportedly patient is bedbound, has dementia, can communicate somewhat. It but about one hour prior to arrival patient was altered, not responding at all. She seems to be somewhat moving her left side but not moving her right side at all. She is a full code. There is no history of any trauma. Allergies: Coded Allergies: PENICILLINS (Verified Allergy, Unknown, 02/04/18) SULFA (SULFONAMIDE ANTIBIOTICS) (Verified Allergy, Unknown, 02/04/18) SULFACETAMIDE (Unverified Allergy, Unknown, 06/24/18) Patient History Past Medical History: see triage record Past Surgical History: none Pertinent Family History: none Reviewed Nursing Documentation: PMH: Agreed; PSxH: Agreed Nursing Documentation-PMH Hx Cardiac Problems: Yes - cardiomegaly, STEMI Hx Hypertension: Yes Hx COPD: Yes Hx Diabetes: Yes Hx Cancer: No Hx Gastrointestinal Problems: Yes - G tube Hx Neurological Problems: Yes - cerebral infarction Hx Cerebrovascular Accident: Yes Hx Seizures: Yes Hx Dizziness: Yes Hx Syncope: Yes Hx Weakness: Yes Hx Fatigue: Yes Review of Systems All Other Systems: limited - unresponsive Physical Exam Vital Signs Date Time Temp Pulse Resp B/P (MAP) Pulse Ox O2 Delivery O2 Flow Rate FiO2 03/09/19 13:40 39 96 Nasal Cannula 2.0 03/09/19 14:00 81 127/87 Sp02 EP Interpretation: abnormal General Appearance: lethargic, Chronically Ill Head: normocephalic, atraumatic Eyes: bilateral eye PERRL, bilateral eye other - Pupils are equal reactive however patient only gazing forward ENT: normal ENT inspection, normal pharynx, normal voice, moist mucus membranes Neck: normal inspection, full range of motion, supple Respiratory: decreased breath sounds Cardiovascular #1: normal inspection, regular rate, rhythm, no edema, normal capillary refill Cardiovascular #2: 2+ radial (R), 2+ radial (L) Gastrointestinal: other - no graimce to deep palpation, PEG tube is in place, abdomen is not rigid Musculoskeletal: other - no signs of trauma Neurologic: other - can move L side to pain, flaccid RUE/RLE. gag reflex intact Psychiatric: other Skin: normal inspection, normal color, no rash, warm/dry, well hydrated, normal turgor Procedures Critical Care Time Critical Care Time Critical care time of 40 minutes, was performed in order to assess and manage the high probability of imminent or life threatening deterioration to respiratory/neurologic function, with frequent reassessment and excludes all billable procedures. Central Line Central Line : Consent: Emergent Central Line Lumen: triple Maximal Sterile Barrier Tech: yes cap, yes mask, yes sterile gown, yes sterile gloves, yes large sterile sheet, yes hand hygiene, yes chlorhexidine prep Central Line Postion: internal jugular (R) Complications: none Central Line Post Position: sutured, good blood return, position confirmed w / CXR Attempts: One Patient Tolerated: Well Complications: None Intubation Intubation : Consent: Emergent Intubation Method: orotracheal Tube Size (cm): 7.5 Medications: Rocuronium Breath Sounds after Intubation: equal Intubation Complications: no complications Post Intubation Xray: Yes Attempts: One Patient Tolerated: Well Complications: None Medical Decision Making Diagnostic Impression: Primary Impression: Altered level of consciousness Additional Impressions: Respiratory failure Septic shock ER Course 88-year-old female with altered mental status DDX: Dehydration, electrolyte disturbance, sepsis, UTI, pneumonia, stroke, intracranial hemorrhage Plan: Obtain labs, ua, EKG, CXR CT head ER course: Patient has been monitored during ED stay Despite 1 L fluids continued to be hypotensive so I place a central line and she was started on Levophed.. Patient was given broad spectrum antibiotics. I had spoken to the patient's family about her critical condition, they said that she is still a full code Disposition: Patient is to be admitted to ICU D/W hospitalist Dr Sprague Please note that this Emergency Department Report was dictated using [employer] analyst technology software, occasionally this can lead to erroneous entry secondary to interpretation by the dictation equipment. EKG Diagnostic Results EP Interpretation: Yes Rate: normal Rhythm: NSR ST Segments: No acute changes ASA given to patient: No Rhythm Strip EP Interpretation: Yes Rate: 77 Rhythm: NSR, no PVCs, no ectopy Chest X-ray CXR: Ordered: Yes 1 view Indication: Altered mental status EP interpretation: Yes Interpretation: Cardiomegaly with mild CHF Impression: Cardiomegaly with mild CHF Electronically signed by Nico Cooper MD Chest X-ray CXR: Ordered: Yes 1 view Indication: ETT tube EP interpretation: Yes Interpretation: ETT in correct position Impression: ETT in correct position Electronically signed by Nico Cooper MD Chest X-ray CXR: Ordered: Yes 1 view Indication: Line placement EP interpretation: Yes Interpretation: central linei n place Impression: central linei n place Electronically signed by Nico Cooper MD Laboratory Tests Test 03/09/19 13:43 03/09/19 13:48 03/09/19 13:55 03/09/19 14:00 Lactic Acid Level 1.80 mmol/L (0.4-2.0) Arterial Blood pH 7.426 (7.350-7.450) Arterial Blood Partial Pressure CO2 70.3 mmHg (35.0-45.0) *H Arterial Blood Partial Pressure O2 73.4 mmHg (75.0-100.0) L Arterial Blood HCO3 45.2 mmol/L (22.0-26.0) *H Arterial Blood Oxygen Saturation 93.6 % (95-100) L Arterial Blood Base Excess 17.6 (-2-2) *H Jose Luis Test Positive White Blood Count 12.1 K/UL (4.8-10.8) H Red Blood Count 3.72 M/UL (4.20-5.40) L Hemoglobin 12.1 G/DL (12.0-16.0) Hematocrit 39.3 % (37.0-47.0) Mean Corpuscular Volume 106 FL (80-99) H Mean Corpuscular Hemoglobin 32.6 PG (27.0-31.0) H Mean Corpuscular Hemoglobin Concent 30.8 G/DL (32.0-36.0) L Red Cell Distribution Width 13.9 % (11.6-14.8) Platelet Count 148 K/UL (150-450) L Mean Platelet Volume 9.3 FL (6.5-10.1) Neutrophils (%) (Auto) 77.6 % (45.0-75.0) H Lymphocytes (%) (Auto) 17.4 % (20.0-45.0) L Monocytes (%) (Auto) 3.4 % (1.0-10.0) Eosinophils (%) (Auto) 1.1 % (0.0-3.0) Basophils (%) (Auto) 0.5 % (0.0-2.0) Sodium Level 170 MMOL/L (136-145) *H Potassium Level 3.8 MMOL/L (3.5-5.1) Chloride Level 123 MMOL/L (98-107) H Carbon Dioxide Level 45 MMOL/L (21-32) *H Anion Gap 2 mmol/L (5-15) L Blood Urea Nitrogen 48 mg/dL (7-18) H Creatinine 0.9 MG/DL (0.55-1.30) Estimate Glomerular Filtration Rate mL/min (>60) Glucose Level 206 MG/DL (74-106) H Calcium Level 9.3 MG/DL (8.5-10.1) Phosphorus Level 3.9 MG/DL (2.5-4.9) Magnesium Level 2.8 MG/DL (1.8-2.4) H Total Bilirubin 0.2 MG/DL (0.2-1.0) Aspartate Amino Transferase (AST) 36 U/L (15-37) Alanine Aminotransferase (ALT) 14 U/L (12-78) Alkaline Phosphatase 81 U/L (46-116) Total Creatine Kinase 187 U/L (26-308) Creatine Kinase MB 0.5 NG/ML (0.0-3.6) Creatine Kinase MB Relative Index 0.2 Troponin I 0.142 ng/mL (0.000-0.056) Total Protein 7.2 G/DL (6.4-8.2) Albumin 2.0 G/DL (3.4-5.0) L Globulin 5.2 g/dL Albumin/Globulin Ratio 0.4 (1.0-2.7) L Phenytoin (Dilantin) Level 11.0 ug/mL (10-20) Test 03/09/19 14:35 03/09/19 15:20 03/09/19 16:20 Urine Color Yellow Urine Appearance Clear Urine pH 5 (4.5-8.0) Urine Specific [place] 1.015 (1.005-1.035) Urine Protein Negative (NEGATIVE) Urine Glucose (UA) Negative (NEGATIVE) Urine Ketones Negative (NEGATIVE) Urine Blood Negative (NEGATIVE) Urine Nitrite Negative (NEGATIVE) Urine Bilirubin Negative (NEGATIVE) Urine Urobilinogen 1 MG/DL (0.0-1.0) H Urine Leukocyte Esterase 2+ (NEGATIVE) H Urine RBC 0-2 /HPF (0 - 2) Urine WBC 5-10 /HPF (0 - 2) H Urine Squamous Epithelial Cells Few /LPF (NONE/OCC) Urine Bacteria Few /HPF (NONE) Prothrombin Time 11.5 SEC (9.30-11.50) Prothrombin Time INR 1.1 (0.9-1.1) PTT 26 SEC (23-33) Arterial Blood pH 7.563 (7.350-7.450) Arterial Blood Partial Pressure CO2 44.7 mmHg (35.0-45.0) Arterial Blood Partial Pressure O2 100.5 mmHg (75.0-100.0) H Arterial Blood HCO3 39.4 mmol/L (22.0-26.0) H Arterial Blood Oxygen Saturation 97.8 % (95-100) Arterial Blood Base Excess 15.5 (-2-2) *H Jose Luis Test Positive CT/MRI/US Diagnostic Results CT/MRI/US Diagnostic Results : Imaging Test Ordered: CT HEAD Impression Impression: No acute intracranial bleed, mass effect or edema. 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 Sinusitis Last Vital Signs Date Time Temp Pulse Resp B/P (MAP) Pulse Ox O2 Delivery O2 Flow Rate FiO2 03/09/19 14:00 81 30 127/87 99 Nasal Cannula 2.0 Disposition: ADMITTED INPATIENT Condition: Critical Nico Cooper M.D. March 09, 2019 14:29
[2019-03-09] MEDS ORDERED: Zemuron 50mg/5ml Inj IV ONE ×2 (14:31→14:45)
--- NOTE | 2019-03-09 14:38 | Diagnostic Imaging Report ---
Indication: Dyspnea Comparison: 07/08/2018 A single view chest radiograph was obtained. Findings: Some fullness in the hilar regions noted. The heart is enlarged. Lung volumes are low. Thickening of the minor fissure noted on the right. Bones are osteopenic. IMPRESSION: No acute findings
[2019-03-09 14:49] LABS: APPEARANCE,URINE CLEAR; BILIRUBIN, URINE NEGATIVE (NEGATIVE); GLUCOSE, URINE (UA) NEGATIVE (NEGATIVE); KETONES,URINE NEGATIVE (NEGATIVE); LEUKOCYTE ESTERASE ,URINE 2+ (NEGATIVE); NITRITE,URINE NEGATIVE (NEGATIVE); PH,URINE 5 (4.5-8.0); PROTEIN,URINE NEGATIVE (NEGATIVE); UROBILINOGEN,URINE 1 MG/DL (0.0-1.0)
[2019-03-09 14:50] LABS: COLOR,URINE YELLOW
[2019-03-09] MEDS ORDERED: Cefepime HCl 1 GM in D5W 55 ML IVPB ONE (15:00)
[2019-03-09] MEDS ORDERED: Vancomycin 1.5gm Premix 275 ML IVPB ONE (15:00)
[2019-03-09 15:04] LABS: ALANINE AMINOTRANSFERASE 14 U/L (12-78); ALBUMIN/GLOBULIN RATIO 0.4 (1.0-2.7); ALKALINE PHOSPHATASE 81 U/L (46-116); ANION GAP 2 mmol/L (5-15); ASPARTATE AMINO TRANSFERASE 36 U/L (15-37); BILIRUBIN,TOTAL 0.2 MG/DL (0.2-1.0); BLOOD UREA NITROGEN 48 mg/dL (7-18); CALCIUM 9.3 MG/DL (8.5-10.1); CHLORIDE 123 MMOL/L (98-107); CKMB 0.5 NG/ML (0.0-3.6); CREATINE KINASE 187 U/L (26-308); CREATININE 0.9 MG/DL (0.55-1.30); PHOSPHORUS 3.9 MG/DL (2.5-4.9); POTASSIUM 3.8 MMOL/L (3.5-5.1)
[2019-03-09 15:07] LABS: CARBON DIOXIDE 45 MMOL/L (21-32); SODIUM 170 MMOL/L (136-145)
[2019-03-09] MEDS ORDERED: Vancomycin 1.5 GM in D5W 275 ML IVPB ONE (15:15)
--- NOTE | 2019-03-09 15:29 | Diagnostic Imaging Report ---
Indication: Intubation Comparison: Earlier same day A single view chest radiograph was obtained. Findings: Endotracheal tube is in good position about 3 cm above the sandi. Heart size is normal. Lungs are clear. There is no change otherwise. IMPRESSION: Endotracheal tube in good position
[2019-03-09 15:49] LABS: INR 1.1 (0.9-1.1)
[2019-03-09] MEDS ORDERED: Levophed 4mg/4mL Inj IV ONE ×2 (15:59→16:07)
--- NOTE | 2019-03-09 16:17 | Diagnostic Imaging Report ---
Indication: Line placement Comparison: 03/09/2019 at earlier time A single view chest radiograph was obtained. Findings: Interval placement of a right jugular line noted. The tip is projected over the SVC in good position. There is no pneumothorax. Heart size is stable. Endotracheal tube remains stable in good position. IMPRESSION: Right central line in good position. No pneumothorax
[2019-03-09] MEDS ORDERED: D5 1/2NS 1,000 ML IV SCH (18:15)
--- NOTE | 2019-03-09 18:19 | History & Physical ---
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
--- NOTE | 2019-03-09 19:22 | Cardiology Progress Note ---
Assessment/Plan Assessment/Plan [id number] Objective Last 24 Hour Vital Signs Date Time Temp Pulse Resp B/P (MAP) Pulse Ox O2 Delivery O2 Flow Rate FiO2 03/09/19 18:40 97 16 40 03/09/19 18:01 135/53 03/09/19 18:01 15 Mechanical Ventilator 50.0 40 03/09/19 17:46 123/51 03/09/19 17:46 15 Mechanical Ventilator 50.0 40 03/09/19 17:31 148/54 03/09/19 17:31 16 Mechanical Ventilator 50.0 40 03/09/19 17:16 118/53 03/09/19 17:16 16 Mechanical Ventilator 50.0 40 03/09/19 17:01 123/63 03/09/19 17:01 16 Mechanical Ventilator 50.0 40 03/09/19 16:58 94 16 40 03/09/19 16:56 127/50 03/09/19 16:56 15 Mechanical Ventilator 50.0 40 03/09/19 16:51 127/53 03/09/19 16:51 15 Mechanical Ventilator 50.0 40 03/09/19 16:46 128/52 03/09/19 16:46 121/50 03/09/19 16:46 15 Mechanical Ventilator 50.0 40 03/09/19 16:41 112/52 03/09/19 16:41 16 Mechanical Ventilator 50.0 40 03/09/19 16:36 126/50 03/09/19 16:36 16 Mechanical Ventilator 50.0 40 03/09/19 16:31 132/52 03/09/19 16:31 16 Mechanical Ventilator 50.0 40 03/09/19 16:30 16 Mechanical Ventilator 50.0 40 03/09/19 16:30 86 18 128/53 100 Mechanical Ventilator 15.0 40 03/09/19 16:26 138/56 03/09/19 16:26 15 Mechanical Ventilator 50.0 40 03/09/19 16:25 18 Mechanical Ventilator 50.0 40 03/09/19 16:21 154/56 03/09/19 16:21 18 Mechanical Ventilator 50.0 40 03/09/19 16:20 Mechanical Ventilator 50.0 40 03/09/19 16:16 51/34 03/09/19 16:16 18 Mechanical Ventilator 50.0 40 03/09/19 16:15 18 Mechanical Ventilator 50.0 40 03/09/19 16:10 16 Mechanical Ventilator 50.0 40 03/09/19 16:05 16 Mechanical Ventilator 50.0 40 03/09/19 16:00 16 Mechanical Ventilator 50.0 40 03/09/19 15:58 18 Mechanical Ventilator 50.0 40 03/09/19 15:45 97.2 95 16 51/34 100 Mechanical Ventilator 5.0 40 03/09/19 15:30 71 16 87/38 100 Mechanical Ventilator 40 03/09/19 15:15 73 16 73/39 100 Mechanical Ventilator 40 03/09/19 15:00 74 16 59/43 100 Mechanical Ventilator 60 03/09/19 14:50 76 16 68/36 100 Mechanical Ventilator 60 03/09/19 14:48 60 03/09/19 14:46 72 30 93/61 99 Nasal Cannula 2.0 03/09/19 14:45 64 24 Mechanical Ventilator 40 03/09/19 14:45 64 24 40 03/09/19 14:30 76 30 103/37 99 Nasal Cannula 2.0 03/09/19 14:00 81 30 127/87 99 Nasal Cannula 2.0 03/09/19 13:50 82 39 Nasal Cannula 2.0 03/09/19 13:40 39 96 Nasal Cannula 2.0 Laboratory Tests Test 03/09/19 13:43 03/09/19 13:48 03/09/19 13:55 03/09/19 14:00 Lactic Acid Level 1.80 mmol/L (0.4-2.0) Arterial Blood pH 7.426 (7.350-7.450) Arterial Blood Partial Pressure CO2 70.3 mmHg (35.0-45.0) *H Arterial Blood Partial Pressure O2 73.4 mmHg (75.0-100.0) L Arterial Blood HCO3 45.2 mmol/L (22.0-26.0) *H Arterial Blood Oxygen Saturation 93.6 % (95-100) L Arterial Blood Base Excess 17.6 (-2-2) *H Jose Luis Test Positive White Blood Count 12.1 K/UL (4.8-10.8) H Red Blood Count 3.72 M/UL (4.20-5.40) L Hemoglobin 12.1 G/DL (12.0-16.0) Hematocrit 39.3 % (37.0-47.0) Mean Corpuscular Volume 106 FL (80-99) H Mean Corpuscular Hemoglobin 32.6 PG (27.0-31.0) H Mean Corpuscular Hemoglobin Concent 30.8 G/DL (32.0-36.0) L Red Cell Distribution Width 13.9 % (11.6-14.8) Platelet Count 148 K/UL (150-450) L Mean Platelet Volume 9.3 FL (6.5-10.1) Neutrophils (%) (Auto) 77.6 % (45.0-75.0) H Lymphocytes (%) (Auto) 17.4 % (20.0-45.0) L Monocytes (%) (Auto) 3.4 % (1.0-10.0) Eosinophils (%) (Auto) 1.1 % (0.0-3.0) Basophils (%) (Auto) 0.5 % (0.0-2.0) Sodium Level 170 MMOL/L (136-145) *H Potassium Level 3.8 MMOL/L (3.5-5.1) Chloride Level 123 MMOL/L (98-107) H Carbon Dioxide Level 45 MMOL/L (21-32) *H Anion Gap 2 mmol/L (5-15) L Blood Urea Nitrogen 48 mg/dL (7-18) H Creatinine 0.9 MG/DL (0.55-1.30) Estimat Glomerular Filtration Rate mL/min (>60) Glucose Level 206 MG/DL (74-106) H Calcium Level 9.3 MG/DL (8.5-10.1) Phosphorus Level 3.9 MG/DL (2.5-4.9) Magnesium Level 2.8 MG/DL (1.8-2.4) H Total Bilirubin 0.2 MG/DL (0.2-1.0) Aspartate Amino Transf (AST/SGOT) 36 U/L (15-37) Alanine Aminotransferase (ALT/SGPT) 14 U/L (12-78) Alkaline Phosphatase 81 U/L (46-116) Total Creatine Kinase 187 U/L (26-308) Creatine Kinase MB 0.5 NG/ML (0.0-3.6) Creatine Kinase MB Relative Index 0.2 Troponin I 0.142 ng/mL (0.000-0.056) Total Protein 7.2 G/DL (6.4-8.2) Albumin 2.0 G/DL (3.4-5.0) L Globulin 5.2 g/dL Albumin/Globulin Ratio 0.4 (1.0-2.7) L Phenytoin (Dilantin) Level 11.0 ug/mL (10-20) Test 03/09/19 14:35 03/09/19 15:20 03/09/19 16:20 Urine Color Yellow Urine Appearance Clear Urine pH 5 (4.5-8.0) Urine Specific [place] 1.015 (1.005-1.035) Urine Protein Negative (NEGATIVE) Urine Glucose (UA) Negative (NEGATIVE) Urine Ketones Negative (NEGATIVE) Urine Blood Negative (NEGATIVE) Urine Nitrite Negative (NEGATIVE) Urine Bilirubin Negative (NEGATIVE) Urine Urobilinogen 1 MG/DL (0.0-1.0) H Urine Leukocyte Esterase 2+ (NEGATIVE) H Urine RBC 0-2 /HPF (0 - 2) Urine WBC 5-10 /HPF (0 - 2) H Urine Squamous Epithelial Cells Few /LPF (NONE/OCC) Urine Bacteria Few /HPF (NONE) Prothrombin Time 11.5 SEC (9.30-11.50) Prothromb Time International Ratio 1.1 (0.9-1.1) Activated Partial Thromboplast Time 26 SEC (23-33) Arterial Blood pH 7.563 (7.350-7.450) Arterial Blood Partial Pressure CO2 44.7 mmHg (35.0-45.0) Arterial Blood Partial Pressure O2 100.5 mmHg (75.0-100.0) H Arterial Blood HCO3 39.4 mmol/L (22.0-26.0) H Arterial Blood Oxygen Saturation 97.8 % (95-100) Arterial Blood Base Excess 15.5 (-2-2) *H Jose Luis Test Positive Allen Bliss MD March 09, 2019 19:22
--- NOTE | 2019-03-09 20:29 | Consultation ---
History of Present Illness General Date patient seen: March 09, 2019 Chief Complaint: Altered Level of Consciousness Referring physician: Dr. Franks Present Illness HPI Deirdre Mello is a 88 year old woman with a history of left CVA , dementia, HTN, HLD, atrial fibrillation, CKD, hx of IA and seizure disorder. At baseline, she is bedbound with a PEG tube and right hemiplegia and is unable to communicate verbally but can usually communicates with head gestures and moans and groans. She is currently a SNF resident and it is reported that late last week, she was having some problems with breathing, congestion, tachypnea, and required breathing treatments. When she was examined by MD at [facility] today, she was subsequently sent to [facility] [place] AMS.. Upon her arrival to [facility], she developed respiratory failure and required intubation. At this time, she is intubated and sedated in the ICU. Allergies: Coded Allergies: PENICILLINS (Verified Allergy, Unknown, 02/04/18) SULFA (SULFONAMIDE ANTIBIOTICS) (Verified Allergy, Unknown, 02/04/18) SULFACETAMIDE (Unverified Allergy, Unknown, 06/24/18) Medication History Scheduled Atorvastatin Calcium* (Lipitor*), 5 MG GT BEDTIME, (Reported) Cranberry Extract (Cranberry), 425 MG GT DAILY, (Reported) Docusate Sodium* (Colace*), 100 MG GT DAILY, (Reported) Furosemide* (Lasix*), 80 MG GT BID, (Reported) Levetiracetam (Keppra), 2.5 ML GT BID, (Reported) Lisinopril* (Lisinopril*), 40 MG GT DAILY, (Reported) Metoprolol Tartrate* (Metoprolol Tartrate*), 50 MG GT EVERY 12 HOURS, (Reported) Multivits W-Min/Ferrous Gluc (Centrum Multivit-Mineral Liq), 15 ML GT DAILY, ( Reported) Omeprazole (Omeprazole), 20 MG GT DAILY, (Reported) Phenytoin (Phenytoin), 75 MG GT TID, (Reported) Vit C/Ascorbate Ca/Ascorb Sod (Vitamin C 500 Mg/15 Ml Liquid), 500 MG GT DAILY, (Reported) Scheduled PRN Acetaminophen* (Acetaminophen 325MG Tablet*), 650 MG GT Q4H PRN for Mild Pain/ Temp > 100.5, (Reported) Albuterol Sulfate* (Albuterol Sulfate Hhn*), 3 ML INH Q4H PRN for Shortness of Breath, (Reported) Bisacodyl (Dulcolax), 10 MG RC DAILY PRN for Constipation, (Reported) Clonidine Hcl* (Catapres*), 0.1 MG ORAL EVERY 6 HOURS PRN for For High Blood Pressure, (Reported) Miscellaneous Medications Hum Insulin Nph/Reg Insulin Hm (Humulin 70-30 Vial), 0 SUBQ, (Reported) Discontinued Medications Amlodipine Besylate (Norvasc), 5 MG ORAL EVERY 12 HOURS Discontinued Reason: Therapy completed Ascorbic Acid* (Vitamin C*), 500 MG GT DAILY, (Reported) Discontinued Reason: Prescription changed Aspirin* (Aspirin*), 81 MG GT DAILY, (Reported) Discontinued Reason: Therapy completed Carvedilol (Coreg), 12.5 MG ORAL EVERY 12 HOURS, (Reported) Discontinued Reason: Therapy completed Ciprofloxacin (Cipro), 500 MG PO BID Discontinued Reason: Therapy completed Furosemide* (Lasix*), 40 MG ORAL DAILY Discontinued Reason: Therapy completed Insulin Aspart (Novolog), Q6HR, (Reported) Discontinued Reason: Therapy completed Ipratropium/Albuterol Sulfate (DuoNeb 0.5-3(2.5)mg/3ml), 3 ML HHN Q4H PRN Discontinued Reason: Therapy completed Nut.tx.gluc.intoler,Lac-Fr,Soy (Glucerna 1.5 Nadir), Unknown Dose GT, (Reported) Discontinued Reason: Therapy completed Pantoprazole Sodium (Protonix), 40 MG GT EVERY 12 HOURS, (Reported) Discontinued Reason: Therapy completed Phenytoin (Phenytoin*), 125 MG GT Q12HR, (Reported) Discontinued Reason: Prescription changed Patient History Limited by: medical condition History Provided By: Medical Record Healthcare decision maker N Resuscitation status Advanced Directive on File Past Medical/Surgical History Past Medical/Surgical History: (1) Dementia (2) CVA, old, hemiparesis (3) Altered level of consciousness Review of Systems ROS Narrative Unable to obtain Physical Exam General Appearance: WD/WN, no apparent distress, lethargic, other Lines, tubes and drains: peripheral, endotracheal tube HEENT: normocephalic, atraumatic, anicteric, mucous membranes moist, PERRL, EOMI, no JVD Neck: non-tender, normal alignment, supple, normal inspection Respiratory/Chest: no respiratory distress, no accessory muscle use, respiratory distress, on vent Cardiovascular/Chest: normal rate, regular rhythm, no JVD Extremities: normal inspection, normal capillary refill, non-pitting, no edema , no cyanosis Skin Exam: normal pigmentation, warm/dry Neurologic: unresponsiveness, other Musculoskeletal: normal muscle bulk, no effusion - W/D to noxious stimuli on left upper and lower extremities - Right face, arm and leg weakness but no apparent sensory deficit. Not following commands. Gag intact on suction with ETT. Last 24 Hour Vital Signs Date Time Temp Pulse Resp B/P (MAP) Pulse Ox O2 Delivery O2 Flow Rate FiO2 03/09/19 18:40 97 16 40 03/09/19 18:30 97.5 86 15 138/62 100 Mechanical Ventilator 50.0 40 03/09/19 18:01 135/53 03/09/19 18:01 15 Mechanical Ventilator 50.0 40 03/09/19 17:46 123/51 03/09/19 17:46 15 Mechanical Ventilator 50.0 40 03/09/19 17:31 148/54 03/09/19 17:31 16 Mechanical Ventilator 50.0 40 03/09/19 17:16 118/53 03/09/19 17:16 16 Mechanical Ventilator 50.0 40 03/09/19 17:01 123/63 03/09/19 17:01 16 Mechanical Ventilator 50.0 40 03/09/19 16:58 94 16 40 03/09/19 16:56 127/50 03/09/19 16:56 15 Mechanical Ventilator 50.0 40 03/09/19 16:51 127/53 03/09/19 16:51 15 Mechanical Ventilator 50.0 40 03/09/19 16:46 128/52 03/09/19 16:46 121/50 03/09/19 16:46 15 Mechanical Ventilator 50.0 40 03/09/19 16:41 112/52 03/09/19 16:41 16 Mechanical Ventilator 50.0 40 03/09/19 16:36 126/50 03/09/19 16:36 16 Mechanical Ventilator 50.0 40 03/09/19 16:31 132/52 03/09/19 16:31 16 Mechanical Ventilator 50.0 40 03/09/19 16:30 16 Mechanical Ventilator 50.0 40 03/09/19 16:30 86 18 128/53 100 Mechanical Ventilator 15.0 40 03/09/19 16:28 97.2 03/09/19 16:26 138/56 03/09/19 16:26 15 Mechanical Ventilator 50.0 40 03/09/19 16:25 18 Mechanical Ventilator 50.0 40 03/09/19 16:21 154/56 03/09/19 16:21 18 Mechanical Ventilator 50.0 40 03/09/19 16:20 Mechanical Ventilator 50.0 40 03/09/19 16:16 51/34 03/09/19 16:16 18 Mechanical Ventilator 50.0 40 03/09/19 16:15 18 Mechanical Ventilator 50.0 40 03/09/19 16:10 16 Mechanical Ventilator 50.0 40 03/09/19 16:05 16 Mechanical Ventilator 50.0 40 03/09/19 16:00 16 Mechanical Ventilator 50.0 40 03/09/19 15:58 18 Mechanical Ventilator 50.0 40 03/09/19 15:45 97.2 95 16 51/34 100 Mechanical Ventilator 5.0 40 03/09/19 15:30 71 16 87/38 100 Mechanical Ventilator 40 03/09/19 15:15 73 16 73/39 100 Mechanical Ventilator 40 03/09/19 15:00 74 16 59/43 100 Mechanical Ventilator 60 03/09/19 14:50 76 16 68/36 100 Mechanical Ventilator 60 03/09/19 14:48 60 03/09/19 14:46 72 30 93/61 99 Nasal Cannula 2.0 03/09/19 14:45 64 24 Mechanical Ventilator 40 03/09/19 14:45 64 24 40 03/09/19 14:30 76 30 103/37 99 Nasal Cannula 2.0 03/09/19 14:00 81 30 127/87 99 Nasal Cannula 2.0 03/09/19 13:50 82 39 Nasal Cannula 2.0 03/09/19 13:40 39 96 Nasal Cannula 2.0 Laboratory Tests Test 03/09/19 13:43 03/09/19 13:48 03/09/19 13:55 03/09/19 14:00 Lactic Acid Level 1.80 mmol/L (0.4-2.0) Arterial Blood pH 7.426 (7.350-7.450) Arterial Blood Partial Pressure CO2 70.3 mmHg (35.0-45.0) *H Arterial Blood Partial Pressure O2 73.4 mmHg (75.0-100.0) L Arterial Blood HCO3 45.2 mmol/L (22.0-26.0) *H Arterial Blood Oxygen Saturation 93.6 % (95-100) L Arterial Blood Base Excess 17.6 (-2-2) *H Jose Luis Test Positive White Blood Count 12.1 K/UL (4.8-10.8) H Red Blood Count 3.72 M/UL (4.20-5.40) L Hemoglobin 12.1 G/DL (12.0-16.0) Hematocrit 39.3 % (37.0-47.0) Mean Corpuscular Volume 106 FL (80-99) H Mean Corpuscular Hemoglobin 32.6 PG (27.0-31.0) H Mean Corpuscular Hemoglobin Concent 30.8 G/DL (32.0-36.0) L Red Cell Distribution Width 13.9 % (11.6-14.8) Platelet Count 148 K/UL (150-450) L Mean Platelet Volume 9.3 FL (6.5-10.1) Neutrophils (%) (Auto) 77.6 % (45.0-75.0) H Lymphocytes (%) (Auto) 17.4 % (20.0-45.0) L Monocytes (%) (Auto) 3.4 % (1.0-10.0) Eosinophils (%) (Auto) 1.1 % (0.0-3.0) Basophils (%) (Auto) 0.5 % (0.0-2.0) Sodium Level 170 MMOL/L (136-145) *H Potassium Level 3.8 MMOL/L (3.5-5.1) Chloride Level 123 MMOL/L (98-107) H Carbon Dioxide Level 45 MMOL/L (21-32) *H Anion Gap 2 mmol/L (5-15) L Blood Urea Nitrogen 48 mg/dL (7-18) H Creatinine 0.9 MG/DL (0.55-1.30) Estimat Glomerular Filtration Rate mL/min (>60) Glucose Level 206 MG/DL (74-106) H Calcium Level 9.3 MG/DL (8.5-10.1) Phosphorus Level 3.9 MG/DL (2.5-4.9) Magnesium Level 2.8 MG/DL (1.8-2.4) H Total Bilirubin 0.2 MG/DL (0.2-1.0) Aspartate Amino Transf (AST/SGOT) 36 U/L (15-37) Alanine Aminotransferase (ALT/SGPT) 14 U/L (12-78) Alkaline Phosphatase 81 U/L (46-116) Total Creatine Kinase 187 U/L (26-308) Creatine Kinase MB 0.5 NG/ML (0.0-3.6) Creatine Kinase MB Relative Index 0.2 Troponin I 0.142 ng/mL (0.000-0.056) Total Protein 7.2 G/DL (6.4-8.2) Albumin 2.0 G/DL (3.4-5.0) L Globulin 5.2 g/dL Albumin/Globulin Ratio 0.4 (1.0-2.7) L Phenytoin (Dilantin) Level 11.0 ug/mL (10-20) Test 03/09/19 14:35 03/09/19 15:20 03/09/19 16:20 Urine Color Yellow Urine Appearance Clear Urine pH 5 (4.5-8.0) Urine Specific Nelson 1.015 (1.005-1.035) Urine Protein Negative (NEGATIVE) Urine Glucose (UA) Negative (NEGATIVE) Urine Ketones Negative (NEGATIVE) Urine Blood Negative (NEGATIVE) Urine Nitrite Negative (NEGATIVE) Urine Bilirubin Negative (NEGATIVE) Urine Urobilinogen 1 MG/DL (0.0-1.0) H Urine Leukocyte Esterase 2+ (NEGATIVE) H Urine RBC 0-2 /HPF (0 - 2) Urine WBC 5-10 /HPF (0 - 2) H Urine Squamous Epithelial Cells Few /LPF (NONE/OCC) Urine Bacteria Few /HPF (NONE) Prothrombin Time 11.5 SEC (9.30-11.50) Prothromb Time International Ratio 1.1 (0.9-1.1) Activated Partial Thromboplast Time 26 SEC (23-33) Arterial Blood pH 7.563 (7.350-7.450) Arterial Blood Partial Pressure CO2 44.7 mmHg (35.0-45.0) Arterial Blood Partial Pressure O2 100.5 mmHg (75.0-100.0) H Arterial Blood HCO3 39.4 mmol/L (22.0-26.0) H Arterial Blood Oxygen Saturation 97.8 % (95-100) Arterial Blood Base Excess 15.5 (-2-2) *H Jose Luis Test Positive Height (Feet): 5 Height (Inches): 8.00 Weight (Pounds): 220 Medications Current Medications Medications (Trade) Dose Ordered Sig/Singh Route PRN Reason Start Time Stop Time Status Last Admin Dose Admin Dextrose/Sodium Chloride 1,000 ml @ 0 mls/hr Q0M IV 03/09/19 18:15 04/08/19 18:14 03/09/19 18:10 Assessment/Plan Problem List: (1) Acute encephalopathy ICD Codes: G93.40 - Encephalopathy, unspecified SNOMED: 83918007, 626169342 (2) Septic shock ICD Codes: A41.9 - Sepsis, unspecified organism; R65.21 - Severe sepsis with septic shock SNOMED: 42721018 (3) Respiratory failure ICD Codes: J96.90 - Respiratory failure, unspecified, unspecified whether with hypoxia or hypercapnia SNOMED: 127363480 Qualifiers: (4) Dementia ICD Codes: F03.90 - Unspecified dementia without behavioral disturbance SNOMED: 06345979 (5) Altered level of consciousness ICD Codes: R40.4 - Transient alteration of awareness SNOMED: 4410618 (6) CVA, old, hemiparesis Assessment & Plan: CT Brain 03/09/19: Old left parietal and occipital infarct Moderate atrophy of the brain. 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 ICD Codes: I69.359 - Hemiplegia and hemiparesis following cerebral infarction affecting unspecified side SNOMED: 668413855 Status: stable Assessment/Plan: Wean vent as able IV Hydration - decrease serum sodium to 135-145 Start ASA 81mg via PEG Maintain normothermia Empiric Abx for UTI- culture and sensitivity Check TSH MRI Brain w/o contrast as soon as able - CT negative but not normal Q2 hour neuro obs Maintain normoglycemia with ISS Continue enteral feeding Critical care time of 70 minutes, was performed in order to assess and manage the high probability of imminent or life threatening deterioration to respiratory/neurologic function, with frequent reassessment and excludes all billable procedures. Ngozi Franklin N.P. March 09, 2019 20:29
[2019-03-09] MEDS: D5W w/KCl 20mEq 1,000 ML IV SCH (22:17)
[2019-03-09] MEDS: Phenytoin Susp 100mg/4ml GT SCH (22:31)
[2019-03-10] VITALS (66 sets, daily range): BP systolic 90–149; BP diastolic 41–87
[2019-03-10] MEDS ORDERED: NovoLOG Insulin Flexpen SUBQ SCH
--- NOTE | 2019-03-10 | Consultation ---
DATE OF CONSULTATION: 03/09/2019 CARDIOLOGY CONSULTATION CONSULTING PHYSICIAN: Allen Bliss M.D. REFERRING PHYSICIAN: Fernando Franks M.D. REASON FOR REFERRAL: Respiratory failure. HISTORY OF PRESENT ILLNESS: This is an elderly female who is not able to provide any meaningful history. The patient's records reviewed. The patient was admitted from [facility] facility according to two of her daughters and family at bedside. Last they saw her normal was on Friday. After that she was having some problems with breathing with congestion and rapid breathing and coughing and needed breathing treatments and finally the doctor looked at her today, did not like the way she looked, and send her to the emergency room. She subsequently has been intubated on a ventilator and she is on the mechanical ventilator and is not able to communicate. According to her family, she usually is not able to verbally communicate, although she communicates with head gestures and moans and groans. Her records here and in her chart indicates she has had hospitalization at [facility] in [place] recently for urinary tract infection. She carries a diagnoses of systemic hypertension, diabetes mellitus, cerebrovascular accident, PEG placement, hyperlipidemia, pneumonia, history of atrial fibrillation, history of diastolic heart failure, history of anemia, kidney disease, history of myocardial infarction, before seizure disorder, and pneumonia as well. Her last hospitalization here, she was hospitalized with healthcare-acquired pneumonia, pleural effusions, and had thoracentesis, acute on chronic diastolic heart failure, hypokalemia, myocardial ischemia resolved, hypertension, this is back in 2018, and she has had a history of seizures as well as sepsis and toxic metabolic encephalopathy on prior occasions. ALLERGIES: Penicillin and sulfa. MEDICATIONS: At the [facility] facility where she is residing according to their notation includes albuterol inhaler, Lipitor 5 mg G-tube, Centrum Silver, clonidine on a p.r.n. basis, Colace, cranberry capsules, Dilantin, Dulcolax, Lasix 80 mg two times daily for congestive heart failure, Humulin insulin, Keppra for seizures, lisinopril 40 mg daily, metoprolol 50 mg daily, omeprazole 20 mg daily, Tylenol, and vitamin C. SOCIAL HISTORY: She is a resident of [facility] facility. No smoking or alcohol or drugs. REVIEW OF SYSTEMS: Unable to obtain. There has been no reports of vomiting or diarrhea or bloody or black stools. According to family members, she was congested and breathing rapidly over the past few days. There has been no reports of any fevers according to the family members and mentation has been somewhat chronically altered. PHYSICAL EXAMINATION: GENERAL: Shows to be elderly female, on a mechanical ventilator. NECK: Supple. LUNGS: Appear to be clear to auscultation at this time. CARDIAC: Regular rate and rhythm. No heaves. No thrills. ABDOMEN: Soft. Positive bowel sounds. EXTREMITIES: There is no edema. LABORATORY AND DIAGNOSTIC DATA: Laboratory values, she had a white count of 12.1 with a hemoglobin 12.1 and platelet count of 148. Blood gases pH of 7.56, pCO2 44, pO2 of 100, and bicarb of 39, however initially she had the blood gas 7.42, pCO2 of 70, pO2 of 73, and bicarbonate of 45. Her sodium was 170, potassium of 3.8, chloride 103, bicarb 45, BUN of 48, creatinine 0.9, glucose 206. First set of cardiac enzymes was 0.142. Her magnesium was 2.4 and her bilirubin is 0.8. No BNP has been performed. INR is 1.1 and a PTT of 26. X-ray of her chest has been read as a right central line in good position, heart stable, endotracheal tube is in good position and initial chest x-ray showed no acute findings, some fullness in the hilar lesion. CT scan of her head had been performed on arrival that shows no acute intracranial bleed, mass effect, or edema. Old left parietal and occipital infarct, moderate atrophy, evidence of extensive chronic small vessel ischemic disease, and sinusitis. ASSESSMENT AND PLAN: 1. Hypernatremia. 2. Likely free water deficit. 3. Metabolic alkalosis. 4. Possible altered mentation secondary to above. 5. Anemia, mild. 6. History of seizures. 7. Diabetes history. 8. Hypertension history. Dr. Franks, this patient was seen in cardiac consultation. First set of cardiac enzymes are minimally abnormal. The patient's electrocardiogram shows nonspecific ST-segment changes, but otherwise no acute issue and in direct comparison with the EKG in May 2018, those changes are not significantly different. I doubt that this is an acute ischemic event, likely the cardiac enzyme abnormality is demand related. She is somewhat tachycardic. She should receive free water, and her blood pressure appears to be elevated at this time, so medications should be resumed for blood pressure. If unable to take oral medications, IV hydralazine can be administered. Serial enzymes will be ordered. Echocardiogram will be ordered. EKG will be ordered. Respiratory and infectious issues will be left to yourself, of course diuretics will be on hold for the time being. Allen Bliss M.D. DR: Sarika JOB#: [id number] CC:
[2019-03-10] MEDS: NovoLOG Insulin Flexpen SUBQ SCH ×4 (00:14→17:06)
[2019-03-10] MEDS: Acetaminophen 650mg/20.3ml GT PRN (01:31)
--- NOTE | 2019-03-10 03:00 | History and Physical Report ---
DATE OF ADMISSION: 03/09/2019 ALLERGIES: Penicillin, sulfonamide antibiotics, and sulfacetamide. CHIEF COMPLAINT: Respiratory distress. PRESENT ILLNESS: The history is obtained from the family and the medical records. Two daughters and a granddaughter are at the bedside, although they have limited information. Apparently, the patient has been living in [facility] for 4 years with dementia. She is not able to feed herself or communicate. She became increasingly short of breath and was transferred by paramedics to the emergency department where she was intubated and placed on ventilator support. She has no high fever and x-rays appear clear. PAST MEDICAL HISTORY: Heart failure, atrial fibrillation, cardiomegaly, gastrostomy, multi-infarct dementia, chronic obstructive pulmonary disease, acid reflux, seizure disorder, hypertension, hyperlipidemia, type 2 diabetes, dysphagia, chronic kidney disease, past sepsis, past respiratory failure, arteriosclerotic coronary disease, past stroke, pressure ulcers, nephritis, past myocardial infarction, and past pneumonia. REVIEW OF SYSTEMS: Cannot be obtained. MEDICATIONS: There is a long list of medications including albuterol, amlodipine, vitamins, baby aspirin, Lipitor, Coreg, Cipro, clonidine, Lasix, insulin, Keppra, lisinopril, metoprolol, tube feedings, Protonix, and Dilantin. PHYSICAL EXAMINATION: VITAL SIGNS: Showed the blood pressure initially was 51/34, but with fluids it improved and presently, the blood pressure is 123/51, respirations are controlled on the ventilator at 15. There is no fever. Heart rate is 94. This patient is poorly responsive. She is overweight. HEENT: The head is normocephalic. There is an orotracheal tube in place. NECK: She has no jugular venous distention. CHEST: Clear. CARDIAC: Rhythm is regular. ABDOMEN: Soft and nontender. The gastric tube is in place. EXTREMITIES: Have no clubbing, cyanosis, or edema. LABORATORY AND DIAGNOSTIC DATA: Laboratory studies show the white count is 12,100, hemoglobin is 12.1, platelets 148,000, and neutrophils 77%. Blood gas showed pH is 7.42, pCO2 70, and pO2 73 prior to intubation. Chemistry showed sodium 170, potassium is normal, bicarbonate 45, BUN is 48, creatinine 0.9. Albumin is 2.0. Troponin is high at 0.142. INR is normal. Dilantin level is normal. Urinalysis shows 5 to 10 white cells. IMPRESSION: 1. Acute respiratory failure. 2. Severe dehydration with shock. 3. Severe hypernatremia. 4. Multi-infarct dementia. 5. Possible acute myocardial infarction. 6. History of heart failure. 7. History of atrial fibrillation. 8. Gastric tube with dysphagia. 9. History of chronic obstructive pulmonary disease. 10. History of seizures with therapeutic Dilantin level. 11. History of hypertension. 12. Hyperlipidemia. 13. Diabetes. PLAN: I met with the family at the bedside. The patient will be Full Code. We will give fluid resuscitation and monitor the cardiac enzymes. Cardiology, Neurology, and Nephrology consultations have been requested. Her prognosis is guarded. Fernando Franks M.D. DR: EVANGELISTA JOB#: [id number] CC: Fernando Franks M.D.; Fax#: [phone]
--- NOTE | 2019-03-10 03:16 | Neurology Progress Note ---
Interim History Interim History ROS Limited/Unobtainable: Yes Complaints: AMS Review of Systems All Systems: reviewed and negative except above Objective Physical Exam Last Vital Signs Date Time Temp Pulse Resp B/P (MAP) Pulse Ox O2 Delivery O2 Flow Rate FiO2 03/10/19 03:00 89 16 116/46 (69) 100 03/10/19 02:00 Mechanical Ventilator 40 03/10/19 01:31 99.2 03/09/19 18:30 50.0 Laboratory Tests Test 03/09/19 13:43 03/09/19 13:48 03/09/19 13:55 03/09/19 14:00 Lactic Acid Level 1.80 mmol/L (0.4-2.0) Arterial Blood pH 7.426 (7.350-7.450) Arterial Blood Partial Pressure CO2 70.3 mmHg (35.0-45.0) *H Arterial Blood Partial Pressure O2 73.4 mmHg (75.0-100.0) L Arterial Blood HCO3 45.2 mmol/L (22.0-26.0) *H Arterial Blood Oxygen Saturation 93.6 % (95-100) L Arterial Blood Base Excess 17.6 (-2-2) *H Jose Luis Test Positive White Blood Count 12.1 K/UL (4.8-10.8) H Red Blood Count 3.72 M/UL (4.20-5.40) L Hemoglobin 12.1 G/DL (12.0-16.0) Hematocrit 39.3 % (37.0-47.0) Mean Corpuscular Volume 106 FL (80-99) H Mean Corpuscular Hemoglobin 32.6 PG (27.0-31.0) H Mean Corpuscular Hemoglobin Concent 30.8 G/DL (32.0-36.0) L Red Cell Distribution Width 13.9 % (11.6-14.8) Platelet Count 148 K/UL (150-450) L Mean Platelet Volume 9.3 FL (6.5-10.1) Neutrophils (%) (Auto) 77.6 % (45.0-75.0) H Lymphocytes (%) (Auto) 17.4 % (20.0-45.0) L Monocytes (%) (Auto) 3.4 % (1.0-10.0) Eosinophils (%) (Auto) 1.1 % (0.0-3.0) Basophils (%) (Auto) 0.5 % (0.0-2.0) Sodium Level 170 MMOL/L (136-145) *H Potassium Level 3.8 MMOL/L (3.5-5.1) Chloride Level 123 MMOL/L (98-107) H Carbon Dioxide Level 45 MMOL/L (21-32) *H Anion Gap 2 mmol/L (5-15) L Blood Urea Nitrogen 48 mg/dL (7-18) H Creatinine 0.9 MG/DL (0.55-1.30) Estimat Glomerular Filtration Rate mL/min (>60) Glucose Level 206 MG/DL (74-106) H Calcium Level 9.3 MG/DL (8.5-10.1) Phosphorus Level 3.9 MG/DL (2.5-4.9) Magnesium Level 2.8 MG/DL (1.8-2.4) H Total Bilirubin 0.2 MG/DL (0.2-1.0) Aspartate Amino Transf (AST/SGOT) 36 U/L (15-37) Alanine Aminotransferase (ALT/SGPT) 14 U/L (12-78) Alkaline Phosphatase 81 U/L (46-116) Total Creatine Kinase 187 U/L (26-308) Creatine Kinase MB 0.5 NG/ML (0.0-3.6) Creatine Kinase MB Relative Index 0.2 Troponin I 0.142 ng/mL (0.000-0.056) Total Protein 7.2 G/DL (6.4-8.2) Albumin 2.0 G/DL (3.4-5.0) L Globulin 5.2 g/dL Albumin/Globulin Ratio 0.4 (1.0-2.7) L Phenytoin (Dilantin) Level 11.0 ug/mL (10-20) Test 03/09/19 14:35 03/09/19 15:20 03/09/19 16:20 Urine Color Yellow Urine Appearance Clear Urine pH 5 (4.5-8.0) Urine Specific [place] 1.015 (1.005-1.035) Urine Protein Negative (NEGATIVE) Urine Glucose (UA) Negative (NEGATIVE) Urine Ketones Negative (NEGATIVE) Urine Blood Negative (NEGATIVE) Urine Nitrite Negative (NEGATIVE) Urine Bilirubin Negative (NEGATIVE) Urine Urobilinogen 1 MG/DL (0.0-1.0) H Urine Leukocyte Esterase 2+ (NEGATIVE) H Urine RBC 0-2 /HPF (0 - 2) Urine WBC 5-10 /HPF (0 - 2) H Urine Squamous Epithelial Cells Few /LPF (NONE/OCC) Urine Bacteria Few /HPF (NONE) Prothrombin Time 11.5 SEC (9.30-11.50) Prothromb Time International Ratio 1.1 (0.9-1.1) Activated Partial Thromboplast Time 26 SEC (23-33) Arterial Blood pH 7.563 (7.350-7.450) Arterial Blood Partial Pressure CO2 44.7 mmHg (35.0-45.0) Arterial Blood Partial Pressure O2 100.5 mmHg (75.0-100.0) H Arterial Blood HCO3 39.4 mmol/L (22.0-26.0) H Arterial Blood Oxygen Saturation 97.8 % (95-100) Arterial Blood Base Excess 15.5 (-2-2) *H Jose Luis Test Positive Impression/Recommendations Problems: (1) Acute encephalopathy (2) Septic shock (3) Respiratory failure (4) Dementia (5) Altered level of consciousness (6) CVA, old, hemiparesis Assessment & Plan: CT Brain 03/09/19: 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 Status: stable Diagnostic Impression MRI ordered to rule out acute stroke as cause of increased AMS and respiratory failure but unable to obtain at this time due to ventilatory status Wean Vent as able Maintain Normoglycemia with ISS May start ASA Recommendations Q 4 hour neuro obs Abx as needed Wean vent Ngozi Franklin N.P. March 10, 2019 03:16
[2019-03-10] MEDS: D5W w/KCl 20mEq 1,000 ML IV SCH ×4 (03:52→17:33)
[2019-03-10] MEDS: Vancomycin 500mg/D5W 110ml IVPB SCH ×4 (03:52→16:30)
[2019-03-10 05:29] LABS: BASOPHILS % (AUTO) 0.4 % (0.0-2.0); EOSINOPHILS % (AUTO) 1.3 % (0.0-3.0); HEMATOCRIT 31.2 % (37.0-47.0); LYMPHOCYTES % (AUTO) 14.1 % (20.0-45.0); MEAN CORPUSCULAR VOLUME 103 FL (80-99); MONOCYTES % (AUTO) 4.3 % (1.0-10.0); NEUTROPHILS % (AUTO) 79.9 % (45.0-75.0); PLATELET COUNT 148 K/UL (150-450); RED BLOOD COUNT 3.04 M/UL (4.20-5.40); RED CELL DISTRIBUTION WIDTH 13.3 % (11.6-14.8); WHITE BLOOD COUNT 12.1 K/UL (4.8-10.8)
[2019-03-10 05:59] LABS: ALANINE AMINOTRANSFERASE 8 U/L (12-78); ALBUMIN 1.7 G/DL (3.4-5.0); ALBUMIN/GLOBULIN RATIO 0.4 (1.0-2.7); ALKALINE PHOSPHATASE 70 U/L (46-116); ANION GAP 5 mmol/L (5-15); ASPARTATE AMINO TRANSFERASE 29 U/L (15-37); BILIRUBIN,TOTAL 0.5 MG/DL (0.2-1.0); BLOOD UREA NITROGEN 29 mg/dL (7-18); CALCIUM 8.5 MG/DL (8.5-10.1); CARBON DIOXIDE 36 MMOL/L (21-32); CHLORIDE 120 MMOL/L (98-107); CREATININE 0.9 MG/DL (0.55-1.30); SODIUM 160 MMOL/L (136-145)
[2019-03-10 06:00] LABS: POTASSIUM 2.3 MMOL/L (3.5-5.1)
[2019-03-10] MEDS: Phenytoin Susp 100mg/4ml GT SCH ×2 (08:53→20:41)
[2019-03-10] MEDS: Pantoprazole Inj IVP SCH (08:53)
[2019-03-10] MEDS: Cefepime 1gm in D5W 55ml IVPB SCH (12:22)
--- NOTE | 2019-03-10 13:25 | Pulmonology Progress Note ---
Assessment/Plan Assessment/Plan 1. Acute respiratory failure. 2. Severe dehydration with shock. 3. Severe hypernatremia. 4. Multi-infarct dementia. 5. Possible acute myocardial infarction. 6. History of heart failure. 7. History of atrial fibrillation. 8. Gastric tube with dysphagia. 9. History of chronic obstructive pulmonary disease. 10. History of seizures with therapeutic Dilantin level. 11. History of hypertension. 12. Hyperlipidemia. 13. Diabetes. Na down to [address] with old infarcts troponin may be due to demand ischemia cont hydration, slowly correct Na cannot wean yet Subjective ROS Limited/Unobtainable: Yes Allergies: Coded Allergies: PENICILLINS (Verified Allergy, Unknown, 02/04/18) SULFA (SULFONAMIDE ANTIBIOTICS) (Verified Allergy, Unknown, 02/04/18) SULFACETAMIDE (Unverified Allergy, Unknown, 06/24/18) Objective Last 24 Hour Vital Signs Date Time Temp Pulse Resp B/P (MAP) Pulse Ox O2 Delivery O2 Flow Rate FiO2 03/10/19 12:50 70 16 40 03/10/19 12:30 71 16 107/56 (73) 100 03/10/19 12:30 16 Mechanical Ventilator 40 03/10/19 12:00 98.5 72 16 95/53 (67) 99 03/10/19 12:00 Mechanical Ventilator Mechanical Ventilator 03/10/19 12:00 16 Mechanical Ventilator 40 03/10/19 12:00 40 03/10/19 12:00 73 03/10/19 11:45 72 16 102/53 (69) 100 03/10/19 11:30 73 16 99/48 (65) 100 03/10/19 11:30 16 Mechanical Ventilator 40 03/10/19 11:15 76 16 102/45 (64) 100 03/10/19 11:00 132/64 03/10/19 11:00 16 Mechanical Ventilator 40 03/10/19 11:00 75 16 132/64 (86) 100 03/10/19 10:55 69 16 40 03/10/19 10:30 76 16 119/58 (78) 100 03/10/19 10:00 122/54 03/10/19 10:00 16 Mechanical Ventilator 40 03/10/19 10:00 77 16 122/54 (76) 100 03/10/19 09:30 77 17 116/86 (96) 99 03/10/19 09:15 73 16 40 03/10/19 09:15 77 16 119/50 (73) 100 03/10/19 09:00 81 23 110/80 (90) 100 03/10/19 09:00 116/86 03/10/19 09:00 16 Mechanical Ventilator 40 03/10/19 08:55 16 Mechanical Ventilator 50.0 40 03/10/19 08:54 147/59 03/10/19 08:54 16 Mechanical Ventilator 40 03/10/19 08:53 147/59 03/10/19 08:45 16 Mechanical Ventilator 40 03/10/19 08:45 83 16 149/59 (89) 99 03/10/19 08:30 84 16 141/65 (90) 99 03/10/19 08:30 141/65 03/10/19 08:30 16 Mechanical Ventilator 40 03/10/19 08:00 81 03/10/19 08:00 40 03/10/19 08:00 Mechanical Ventilator Mechanical Ventilator 03/10/19 08:00 98.9 85 16 132/57 (82) 100 03/10/19 08:00 132/57 03/10/19 08:00 16 Mechanical Ventilator 40 03/10/19 07:30 85 16 142/54 (83) 100 03/10/19 07:01 81 16 40 03/10/19 07:00 82 16 138/52 (80) 100 03/10/19 07:00 138/52 03/10/19 07:00 16 Mechanical Ventilator 40 03/10/19 06:45 82 16 129/53 (78) 100 03/10/19 06:30 83 16 132/53 (79) 100 03/10/19 06:15 83 16 113/49 (70) 100 03/10/19 06:00 135/53 03/10/19 06:00 16 Mechanical Ventilator 40 03/10/19 06:00 83 16 135/53 (80) 100 03/10/19 05:45 84 16 117/53 (74) 100 03/10/19 05:30 87 16 129/51 (77) 100 03/10/19 05:15 82 17 149/51 (83) 100 03/10/19 05:08 85 16 40 03/10/19 05:00 85 16 127/50 (75) 100 03/10/19 05:00 127/50 03/10/19 05:00 16 Mechanical Ventilator 40 03/10/19 04:45 85 16 121/55 (77) 100 03/10/19 04:30 83 16 110/78 (89) 100 03/10/19 04:15 85 16 138/54 (82) 100 03/10/19 04:00 99.4 89 16 127/47 (73) 100 03/10/19 04:00 40 03/10/19 04:00 127/47 03/10/19 04:00 16 Mechanical Ventilator 40 03/10/19 04:00 88 03/10/19 04:00 Mechanical Ventilator Mechanical Ventilator 03/10/19 03:45 89 16 119/47 (71) 100 03/10/19 03:30 84 16 138/50 (79) 100 03/10/19 03:19 93 16 40 03/10/19 03:15 89 16 119/52 (74) 100 03/10/19 03:00 89 16 116/46 (69) 100 03/10/19 03:00 116/46 03/10/19 03:00 16 Mechanical Ventilator 40 03/10/19 02:45 86 16 112/48 (69) 100 03/10/19 02:30 91 16 112/47 (68) 100 03/10/19 02:15 88 16 121/50 (73) 100 03/10/19 02:00 119/46 03/10/19 02:00 16 Mechanical Ventilator 40 03/10/19 02:00 85 16 119/46 (70) 100 03/10/19 01:45 86 16 123/52 (75) 100 03/10/19 01:31 99.2 03/10/19 01:30 87 16 114/50 (71) 100 03/10/19 01:15 87 16 115/49 (71) 100 03/10/19 01:01 93 16 40 03/10/19 01:00 113/47 03/10/19 01:00 16 Mechanical Ventilator 40 03/10/19 01:00 88 16 113/47 (69) 100 03/10/19 00:45 87 16 122/50 (74) 100 03/10/19 00:30 89 16 148/69 (95) 100 03/10/19 00:15 90 16 128/70 (89) 100 03/10/19 00:00 137/51 03/10/19 00:00 16 Mechanical Ventilator 40 03/10/19 00:00 40 03/10/19 00:00 101.3 89 16 137/51 (79) 100 03/10/19 00:00 89 03/10/19 00:00 Mechanical Ventilator Mechanical Ventilator 03/09/19 23:45 90 16 129/49 (75) 100 03/09/19 23:30 88 16 144/69 (94) 100 03/09/19 23:17 90 16 40 03/09/19 23:15 89 16 144/69 (94) 100 03/09/19 23:00 89 16 140/52 (81) 100 03/09/19 23:00 140/52 03/09/19 23:00 16 Mechanical Ventilator 40 03/09/19 22:45 90 16 148/69 (95) 100 03/09/19 22:30 90 16 140/61 (87) 100 03/09/19 22:15 91 16 131/57 (81) 100 03/09/19 22:00 125/54 03/09/19 22:00 16 Mechanical Ventilator 40 03/09/19 22:00 90 16 126/54 (78) 100 03/09/19 21:45 92 16 132/57 (82) 100 03/09/19 21:30 92 16 137/53 (81) 100 03/09/19 21:15 99 16 182/76 (111) 100 03/09/19 21:04 94 16 40 03/09/19 21:04 16 Mechanical Ventilator 40 03/09/19 21:03 141/60 03/09/19 21:00 93 16 156/53 (87) 100 03/09/19 21:00 93 16 156/53 (87) 100 03/09/19 20:45 92 16 141/60 (87) 100 03/09/19 20:30 91 16 143/59 (87) 100 03/09/19 20:15 91 16 144/61 (88) 100 03/09/19 20:00 130/77 03/09/19 20:00 16 Mechanical Ventilator 40 03/09/19 20:00 Mechanical Ventilator Mechanical Ventilator 03/09/19 20:00 106 03/09/19 20:00 93 19 130/61 (84) 99 03/09/19 19:45 94 18 142/57 (85) 100 03/09/19 19:30 89 18 113/60 (77) 100 03/09/19 19:15 103 15 98/40 (59) 100 03/09/19 19:00 182/94 03/09/19 19:00 182/94 03/09/19 19:00 16 Mechanical Ventilator 40 03/09/19 19:00 99.1 99 16 182/76 (111) 100 03/09/19 18:40 97 16 40 03/09/19 18:30 97.5 86 15 138/62 100 Mechanical Ventilator 50.0 40 03/09/19 18:01 135/53 03/09/19 18:01 15 Mechanical Ventilator 50.0 40 03/09/19 17:46 123/51 03/09/19 17:46 15 Mechanical Ventilator 50.0 40 03/09/19 17:31 148/54 03/09/19 17:31 16 Mechanical Ventilator 50.0 40 03/09/19 17:16 118/53 03/09/19 17:16 16 Mechanical Ventilator 50.0 40 03/09/19 17:01 123/63 03/09/19 17:01 16 Mechanical Ventilator 50.0 40 03/09/19 16:58 94 16 40 03/09/19 16:56 127/50 03/09/19 16:56 15 Mechanical Ventilator 50.0 40 03/09/19 16:51 127/53 03/09/19 16:51 15 Mechanical Ventilator 50.0 40 03/09/19 16:46 128/52 03/09/19 16:46 121/50 03/09/19 16:46 15 Mechanical Ventilator 50.0 40 03/09/19 16:41 112/52 03/09/19 16:41 16 Mechanical Ventilator 50.0 40 03/09/19 16:36 126/50 03/09/19 16:36 16 Mechanical Ventilator 50.0 40 03/09/19 16:31 132/52 03/09/19 16:31 16 Mechanical Ventilator 50.0 40 03/09/19 16:30 16 Mechanical Ventilator 50.0 40 03/09/19 16:30 86 18 128/53 100 Mechanical Ventilator 15.0 40 03/09/19 16:28 97.2 03/09/19 16:26 138/56 03/09/19 16:26 15 Mechanical Ventilator 50.0 40 03/09/19 16:25 18 Mechanical Ventilator 50.0 40 03/09/19 16:21 154/56 03/09/19 16:21 18 Mechanical Ventilator 50.0 40 03/09/19 16:20 Mechanical Ventilator 50.0 40 03/09/19 16:16 51/34 03/09/19 16:16 18 Mechanical Ventilator 50.0 40 03/09/19 16:15 18 Mechanical Ventilator 50.0 40 03/09/19 16:10 16 Mechanical Ventilator 50.0 40 03/09/19 16:05 16 Mechanical Ventilator 50.0 40 03/09/19 16:00 16 Mechanical Ventilator 50.0 40 03/09/19 15:58 18 Mechanical Ventilator 50.0 40 03/09/19 15:45 97.2 95 16 51/34 100 Mechanical Ventilator 5.0 40 03/09/19 15:30 71 16 87/38 100 Mechanical Ventilator 40 03/09/19 15:15 73 16 73/39 100 Mechanical Ventilator 40 03/09/19 15:00 74 16 59/43 100 Mechanical Ventilator 60 03/09/19 14:50 76 16 68/36 100 Mechanical Ventilator 60 03/09/19 14:48 60 03/09/19 14:46 72 30 93/61 99 Nasal Cannula 2.0 03/09/19 14:45 64 24 Mechanical Ventilator 40 03/09/19 14:45 64 24 40 03/09/19 14:30 76 30 103/37 99 Nasal Cannula 2.0 03/09/19 14:00 81 30 127/87 99 Nasal Cannula 2.0 03/09/19 13:50 82 39 Nasal Cannula 2.0 03/09/19 13:40 39 96 Nasal Cannula 2.0 Intake and Output 03/09/19 03/10/19 19:00 07:00 Intake Total 1002 ml 1857.980 ml Output Total 200 ml 1480 ml Balance 802 ml 377.980 ml Intake Oral 0 ml Free Water 210 ml IV Total 1002 ml 1637.980 ml Other 10 ml Output Urine Total 200 ml 1480 ml # Voids 2 Objective GT General Appearance: no acute distress HEENT: atraumatic Respiratory/Chest: lungs clear Cardiovascular: normal rate Abdomen: soft, non tender Neurologic/Psychiatric: unresponsiveness Laboratory Tests 03/09/19 13:43: Lactic Acid Level 1.80 03/09/19 13:48: Arterial Blood pH 7.426, Arterial Blood Partial Pressure CO2 70.3*H, Arterial Blood Partial Pressure O2 73.4L, Arterial Blood HCO3 45.2*H, Arterial Blood Oxygen Saturation 93.6L, Arterial Blood Base Excess 17.6*H, Jose Luis Test Positive 03/09/19 13:55: White Blood Count 12.1H, Red Blood Count 3.72L, Hemoglobin 12.1, Hematocrit 39.3 , Mean Corpuscular Volume 106H, Mean Corpuscular Hemoglobin 32.6H, Mean Corpuscular Hemoglobin Concent 30.8L, Red Cell Distribution Width 13.9, Platelet Count 148L, Mean Platelet Volume 9.3, Neutrophils (%) (Auto) 77.6H, Lymphocytes (%) (Auto) 17.4L, Monocytes (%) (Auto) 3.4, Eosinophils (%) (Auto) 1.1, Basophils (%) (Auto) 0.5 03/09/19 14:00: Sodium Level 170*H, Potassium Level 3.8, Chloride Level 123H, Carbon Dioxide Level 45*H, Anion Gap 2L, Blood Urea Nitrogen 48H, Creatinine 0.9, Estimat Glomerular Filtration Rate , Glucose Level 206H, Calcium Level 9.3, Phosphorus Level 3.9, Magnesium Level 2.8H, Total Bilirubin 0.2, Aspartate Amino Transf ( AST/SGOT) 36, Alanine Aminotransferase (ALT/SGPT) 14, Alkaline Phosphatase 81, Total Creatine Kinase 187, Creatine Kinase MB 0.5, Creatine Kinase MB Relative Index 0.2, Troponin I 0.142H, Total Protein 7.2, Albumin 2.0L, Globulin 5.2, Albumin/Globulin Ratio 0.4L, Phenytoin (Dilantin) Level 11.0 03/09/19 14:35: Urine Color Yellow, Urine Appearance Clear, Urine pH 5, Urine Specific [place] 1.015, Urine Protein Negative, Urine Glucose (UA) Negative, Urine Ketones Negative, Urine Blood Negative, Urine Nitrite Negative, Urine Bilirubin Negative , Urine Urobilinogen 1H, Urine Leukocyte Esterase 2+H, Urine RBC 0-2, Urine WBC 5-10H, Urine Squamous Epithelial Cells Few, Urine Bacteria Few 03/09/19 15:20: Prothrombin Time 11.5, Prothromb Time International Ratio 1.1, Activated Partial Thromboplast Time 26 03/09/19 16:20: Arterial Blood pH 7.563*H, Arterial Blood Partial Pressure CO2 44.7, Arterial Blood Partial Pressure O2 100.5H, Arterial Blood HCO3 39.4H, Arterial Blood Oxygen Saturation 97.8, Arterial Blood Base Excess 15.5*H, Jose Luis Test Positive 03/10/19 04:40: White Blood Count 12.1H, Red Blood Count 3.04L, Hemoglobin 10.0L, Hematocrit 31.2L, Mean Corpuscular Volume 103H, Mean Corpuscular Hemoglobin 32.8H, Mean Corpuscular Hemoglobin Concent 32.0, Red Cell Distribution Width 13.3, Platelet Count 148L, Mean Platelet Volume 10.4H, Neutrophils (%) (Auto) 79.9H, Lymphocytes (%) (Auto) 14.1L, Monocytes (%) (Auto) 4.3, Eosinophils (%) (Auto) 1.3, Basophils (%) (Auto) 0.4, Sodium Level 160#H, Potassium Level 2.3*L, Chloride Level 120H, Carbon Dioxide Level 36H, Anion Gap 5, Blood Urea Nitrogen 29H, Creatinine 0.9, Estimat Glomerular Filtration Rate , Glucose Level 348#H, Hemoglobin A1c 8.6H, Calcium Level 8.5, Total Bilirubin 0.5, Aspartate Amino Transf (AST/SGOT) 29, Alanine Aminotransferase (ALT/SGPT) 8L, Alkaline Phosphatase 70, Troponin I 0.715H, Pro-B-Type Natriuretic Peptide 2995H, Total Protein 6.5, Albumin 1.7L, Globulin 4.8, Albumin/Globulin Ratio 0.4L, Vitamin B12 Level > 2000H, Folate 15.3, Thyroid Stimulating Hormone (TSH) 1.574 03/10/19 12:10: Troponin I 0.510H Current Medications Medications (Trade) Dose Ordered Sig/Singh Route PRN Reason Start Time Stop Time Status Last Admin Dose Admin Acetaminophen (Tylenol) 650 mg Q4H PRN GT Mild Pain/Temp > 100.5 03/09/19 20:30 04/08/19 20:29 03/10/19 01:31 Cefepime HCl 1 gm/ Dextrose 55 ml @ 110 mls/hr Q24H IVPB 03/10/19 12:00 03/17/19 11:59 03/10/19 12:22 Chlorhexidine Gluconate (Azra-Hex 2%) 1 applic DAILY@2000 TOPIC 03/10/19 20:00 04/09/19 19:59 Dextrose (Dextrose 50%) 25 ml Q30M PRN IV Hypoglycemia 03/09/19 21:00 04/08/19 20:59 Dextrose (Dextrose 50%) 50 ml Q30M PRN IV Hypoglycemia 03/09/19 21:00 04/08/19 20:59 Dextrose/ Electrolytes 1,000 ml @ 160 mls/hr Q6H15M IV 03/09/19 22:00 04/08/19 21:59 03/10/19 08:54 Fentanyl Citrate 1000 mcg/Sodium Chloride 100 ml @ 0 mls/hr Q24H IV 03/09/19 20:53 03/16/19 20:52 03/10/19 08:55 Insulin Aspart (NovoLOG) EVERY 6 HOURS SUBQ 03/10/19 00:00 04/09/19 00:00 03/10/19 12:23 Norepinephrine Bitartrate 8 mg/ Dextrose 250 ml @ 0 mls/hr Q24H IV 03/09/19 21:00 04/08/19 20:59 03/10/19 08:54 Pantoprazole (Protonix) 40 mg DAILY IVP 03/10/19 09:00 04/09/19 08:59 03/10/19 08:53 Phenytoin (Dilantin) 125 mg Q12HR GT 03/09/19 21:00 04/08/19 20:59 03/10/19 08:53 Vancomycin HCl (Vanco rx to dose) 1 ea DAILY PRN MISC Per rx protocol 03/09/19 20:30 04/08/19 20:29 Vancomycin HCl 500 mg/Dextrose 110 ml @ 110 mls/hr Q12HR@0400,1600 IVPB 03/10/19 04:00 03/15/19 03:59 03/10/19 03:52 Fernando Franks MD March 10, 2019 13:25
--- NOTE | 2019-03-10 17:22 | Cardiology Report ---
APPROVED REPORT EXAM: Two-dimensional and M-mode echocardiogram with Doppler and color Doppler. INDICATION TACHYCARDIA M-Mode DIMENSIONS IVSd0.8 (0.7-1.1cm)Left Atrium (MM)3.1 (1.6-4.0cm) LVDd5.4 (3.5-5.6cm)Aortic Root3.4 (2.0-3.7cm) PWd0.9 (0.7-1.1cm)Aortic Cusp Exc.1.5 (1.5-2.0cm) IVSs1.0 cm LVDs4.0 (2.5-4.0cm) PWs0.8 cm Global left ventricular hypokinesis with anteroseptal basal to mid akinesis. Mild left ventricular enlargement . Left ventricular ejection fraction estimated to be 25-30%. Mild left ventricular hypertrophy by 2-D. Anterior Echo-free space, may be due to pericardial fat or effusion. All other cardiac chamber sizes are within normal limits. Aortic valve calcification with reduced cusp excursion . Mildly thickened mitral valve leaflets with normal excursion. Mild mitral annulus and aortic root calcification. Pulmonic valve not well visualized. IVC at normal size with slightly physiologic collapse . A color flow and spectral Doppler study was performed and revealed: Mild aortic insufficiency . Mitral diastolic velocities suggest reduced left ventricular relaxation c/w mild LV diastolic dysfunction (Grade I ) Trace mitral regurgitation. Mild tricuspid regurgitation. Tricuspid systolic velocities suggests peak right ventricular systolic pressure of 13mmHg.
--- NOTE | 2019-03-10 17:28 | Cardiology Report ---
APPROVED REPORT EKG Measurement Heart [id number] Sinus rhythm with 1st degree AV block Left axis deviation Incomplete left bundle branch block Abnormal ECG
--- NOTE | 2019-03-10 17:38 | Cardiology Report ---
APPROVED REPORT EKG Measurement Heart [id number] Normal sinus rhythm Left axis deviation Incomplete left bundle branch block Nonspecific ST and T wave abnormality Prolonged QT Abnormal ECG
--- NOTE | 2019-03-10 17:40 | Consultation ---
Consult Note Consult Note [id number] Ulisses Tello MD March 10, 2019 17:39
--- NOTE | 2019-03-10 18:53 | Cardiology Progress Note ---
Assessment/Plan Assessment/Plan 1. Hypernatremia free water deficit 2. Likely demand ischemia 3. Metabolic alkalosis. 4. altered mentation secondary to above. 5. Anemia, mild. 6. History of seizures. 7. Diabetes history. 8. Hypertension history. 9. hs of diastolic failure 10.New LV systolic dysfunction ? na improved trop min abn still bp is now borderline off pressor remain on the vent echo report noted some echo views were reviewed may not have as bad an lv function as reported atlhgouh the images are not typical stress induced cm may be in the differential no new cxr will order for tomorrow on iv abx urien out put about 30-40 cc per hour per rn continue vent support is getting free water k supplement off diurtics and bp meds repeat trop adn ekg in am not tachy ekg peronally reviewed remains critically ill at risk of dying tele monitor Subjective ROS Limited/Unobtainable: Yes Objective Last 24 Hour Vital Signs Date Time Temp Pulse Resp B/P (MAP) Pulse Ox O2 Delivery O2 Flow Rate FiO2 03/10/19 18:30 66 16 92/47 (62) 100 03/10/19 18:00 16 Non-Rebreather 40 03/10/19 18:00 64 16 93/44 (60) 100 03/10/19 17:30 66 16 94/52 (66) 100 03/10/19 17:20 78 16 40 03/10/19 17:00 69 16 92/50 (64) 100 03/10/19 17:00 16 Mechanical Ventilator 40 03/10/19 16:30 98.8 69 16 94/44 (61) 100 03/10/19 16:00 70 16 97/51 (66) 100 03/10/19 16:00 Mechanical Ventilator Mechanical Ventilator 03/10/19 16:00 40 03/10/19 16:00 16 Mechanical Ventilator 40 03/10/19 16:00 69 03/10/19 15:30 70 16 95/43 (60) 100 03/10/19 15:11 70 16 40 03/10/19 15:00 16 Mechanical Ventilator 40 03/10/19 15:00 70 17 103/87 (92) 100 03/10/19 14:30 69 16 97/49 (65) 100 03/10/19 14:00 16 Mechanical Ventilator 40 03/10/19 14:00 68 16 106/52 (70) 100 03/10/19 13:30 70 16 107/52 (70) 100 03/10/19 13:00 71 16 113/51 (71) 100 03/10/19 13:00 16 Mechanical Ventilator 40 03/10/19 12:50 70 16 40 03/10/19 12:30 71 16 107/56 (73) 100 03/10/19 12:30 16 Mechanical Ventilator 40 03/10/19 12:00 98.5 72 16 95/53 (67) 99 03/10/19 12:00 Mechanical Ventilator Mechanical Ventilator 03/10/19 12:00 16 Mechanical Ventilator 40 03/10/19 12:00 40 03/10/19 12:00 73 03/10/19 11:45 72 16 102/53 (69) 100 03/10/19 11:30 73 16 99/48 (65) 100 03/10/19 11:30 16 Mechanical Ventilator 40 03/10/19 11:15 76 16 102/45 (64) 100 03/10/19 11:00 132/64 03/10/19 11:00 16 Mechanical Ventilator 40 03/10/19 11:00 75 16 132/64 (86) 100 03/10/19 10:55 69 16 40 03/10/19 10:30 76 16 119/58 (78) 100 03/10/19 10:00 122/54 03/10/19 10:00 16 Mechanical Ventilator 40 03/10/19 10:00 77 16 122/54 (76) 100 03/10/19 09:30 77 17 116/86 (96) 99 03/10/19 09:15 73 16 40 03/10/19 09:15 77 16 119/50 (73) 100 03/10/19 09:00 81 23 110/80 (90) 100 03/10/19 09:00 116/86 03/10/19 09:00 16 Mechanical Ventilator 40 03/10/19 08:55 16 Mechanical Ventilator 50.0 40 03/10/19 08:54 147/59 03/10/19 08:54 16 Mechanical Ventilator 40 03/10/19 08:53 147/59 03/10/19 08:45 16 Mechanical Ventilator 40 03/10/19 08:45 83 16 149/59 (89) 99 03/10/19 08:30 84 16 141/65 (90) 99 03/10/19 08:30 141/65 03/10/19 08:30 16 Mechanical Ventilator 40 03/10/19 08:00 81 03/10/19 08:00 40 03/10/19 08:00 Mechanical Ventilator Mechanical Ventilator 03/10/19 08:00 98.9 85 16 132/57 (82) 100 03/10/19 08:00 132/57 03/10/19 08:00 16 Mechanical Ventilator 40 03/10/19 07:30 85 16 142/54 (83) 100 03/10/19 07:01 81 16 40 03/10/19 07:00 82 16 138/52 (80) 100 03/10/19 07:00 138/52 03/10/19 07:00 16 Mechanical Ventilator 40 03/10/19 06:45 82 16 129/53 (78) 100 03/10/19 06:30 83 16 132/53 (79) 100 03/10/19 06:15 83 16 113/49 (70) 100 03/10/19 06:00 135/53 03/10/19 06:00 16 Mechanical Ventilator 40 03/10/19 06:00 83 16 135/53 (80) 100 03/10/19 05:45 84 16 117/53 (74) 100 03/10/19 05:30 87 16 129/51 (77) 100 03/10/19 05:15 82 17 149/51 (83) 100 03/10/19 05:08 85 16 40 03/10/19 05:00 85 16 127/50 (75) 100 03/10/19 05:00 127/50 03/10/19 05:00 16 Mechanical Ventilator 40 03/10/19 04:45 85 16 121/55 (77) 100 03/10/19 04:30 83 16 110/78 (89) 100 03/10/19 04:15 85 16 138/54 (82) 100 03/10/19 04:00 99.4 89 16 127/47 (73) 100 03/10/19 04:00 40 03/10/19 04:00 127/47 03/10/19 04:00 16 Mechanical Ventilator 40 03/10/19 04:00 88 03/10/19 04:00 Mechanical Ventilator Mechanical Ventilator 03/10/19 03:45 89 16 119/47 (71) 100 03/10/19 03:30 84 16 138/50 (79) 100 03/10/19 03:19 93 16 40 03/10/19 03:15 89 16 119/52 (74) 100 03/10/19 03:00 89 16 116/46 (69) 100 03/10/19 03:00 116/46 03/10/19 03:00 16 Mechanical Ventilator 40 03/10/19 02:45 86 16 112/48 (69) 100 03/10/19 02:30 91 16 112/47 (68) 100 03/10/19 02:15 88 16 121/50 (73) 100 03/10/19 02:00 119/46 03/10/19 02:00 16 Mechanical Ventilator 40 03/10/19 02:00 85 16 119/46 (70) 100 03/10/19 01:45 86 16 123/52 (75) 100 03/10/19 01:31 99.2 03/10/19 01:30 87 16 114/50 (71) 100 03/10/19 01:15 87 16 115/49 (71) 100 03/10/19 01:01 93 16 40 03/10/19 01:00 113/47 03/10/19 01:00 16 Mechanical Ventilator 40 03/10/19 01:00 88 16 113/47 (69) 100 03/10/19 00:45 87 16 122/50 (74) 100 03/10/19 00:30 89 16 148/69 (95) 100 03/10/19 00:15 90 16 128/70 (89) 100 03/10/19 00:00 137/51 03/10/19 00:00 16 Mechanical Ventilator 40 03/10/19 00:00 40 03/10/19 00:00 101.3 89 16 137/51 (79) 100 03/10/19 00:00 89 03/10/19 00:00 Mechanical Ventilator Mechanical Ventilator 03/09/19 23:45 90 16 129/49 (75) 100 03/09/19 23:30 88 16 144/69 (94) 100 03/09/19 23:17 90 16 40 03/09/19 23:15 89 16 144/69 (94) 100 03/09/19 23:00 89 16 140/52 (81) 100 03/09/19 23:00 140/52 03/09/19 23:00 16 Mechanical Ventilator 40 03/09/19 22:45 90 16 148/69 (95) 100 03/09/19 22:30 90 16 140/61 (87) 100 03/09/19 22:15 91 16 131/57 (81) 100 03/09/19 22:00 125/54 03/09/19 22:00 16 Mechanical Ventilator 40 03/09/19 22:00 90 16 126/54 (78) 100 03/09/19 21:45 92 16 132/57 (82) 100 03/09/19 21:30 92 16 137/53 (81) 100 03/09/19 21:15 99 16 182/76 (111) 100 03/09/19 21:04 94 16 40 03/09/19 21:04 16 Mechanical Ventilator 40 03/09/19 21:03 141/60 03/09/19 21:00 93 16 156/53 (87) 100 03/09/19 21:00 93 16 156/53 (87) 100 03/09/19 20:45 92 16 141/60 (87) 100 03/09/19 20:30 91 16 143/59 (87) 100 03/09/19 20:15 91 16 144/61 (88) 100 03/09/19 20:00 130/77 03/09/19 20:00 16 Mechanical Ventilator 40 03/09/19 20:00 Mechanical Ventilator Mechanical Ventilator 03/09/19 20:00 106 03/09/19 20:00 93 19 130/61 (84) 99 03/09/19 19:45 94 18 142/57 (85) 100 03/09/19 19:30 89 18 113/60 (77) 100 03/09/19 19:15 103 15 98/40 (59) 100 03/09/19 19:00 182/94 03/09/19 19:00 182/94 03/09/19 19:00 16 Mechanical Ventilator 40 03/09/19 19:00 99.1 99 16 182/76 (111) 100 General Appearance: no apparent distress, patient on isolation, isolation precautions Neck: supple Cardiovascular: normal rate, regular rhythm Respiratory/Chest: lungs clear - ant Abdomen: normal bowel sounds, non tender, soft Extremities: trace edema Intake and Output 03/09/19 03/10/19 19:00 07:00 Intake Total 1002 ml 1857.980 ml Output Total 200 ml 1480 ml Balance 802 ml 377.980 ml Intake Oral 0 ml Free Water 210 ml IV Total 1002 ml 1637.980 ml Other 10 ml Output Urine Total 200 ml 1480 ml # Voids 2 Laboratory Tests Test 03/10/19 04:40 03/10/19 12:10 White Blood Count 12.1 K/UL (4.8-10.8) H Red Blood Count 3.04 M/UL (4.20-5.40) L Hemoglobin 10.0 G/DL (12.0-16.0) L Hematocrit 31.2 % (37.0-47.0) L Mean Corpuscular Volume 103 FL (80-99) H Mean Corpuscular Hemoglobin 32.8 PG (27.0-31.0) H Mean Corpuscular Hemoglobin Concent 32.0 G/DL (32.0-36.0) Red Cell Distribution Width 13.3 % (11.6-14.8) Platelet Count 148 K/UL (150-450) L Mean Platelet Volume 10.4 FL (6.5-10.1) H Neutrophils (%) (Auto) 79.9 % (45.0-75.0) H Lymphocytes (%) (Auto) 14.1 % (20.0-45.0) L Monocytes (%) (Auto) 4.3 % (1.0-10.0) Eosinophils (%) (Auto) 1.3 % (0.0-3.0) Basophils (%) (Auto) 0.4 % (0.0-2.0) Sodium Level 160 MMOL/L (136-145) #H Potassium Level 2.3 MMOL/L (3.5-5.1) *L Chloride Level 120 MMOL/L (98-107) H Carbon Dioxide Level 36 MMOL/L (21-32) H Anion Gap 5 mmol/L (5-15) Blood Urea Nitrogen 29 mg/dL (7-18) H Creatinine 0.9 MG/DL (0.55-1.30) Estimat Glomerular Filtration Rate mL/min (>60) Glucose Level 348 MG/DL (74-106) #H Hemoglobin A1c 8.6 % (4.3-6.0) H Calcium Level 8.5 MG/DL (8.5-10.1) Total Bilirubin 0.5 MG/DL (0.2-1.0) Aspartate Amino Transf (AST/SGOT) 29 U/L (15-37) Alanine Aminotransferase (ALT/SGPT) 8 U/L (12-78) L Alkaline Phosphatase 70 U/L (46-116) Troponin I 0.715 ng/mL (0.000-0.056) 0.510 ng/mL (0.000-0.056) Pro-B-Type Natriuretic Peptide 2995 pg/mL (0-125) H Total Protein 6.5 G/DL (6.4-8.2) Albumin 1.7 G/DL (3.4-5.0) L Globulin 4.8 g/dL Albumin/Globulin Ratio 0.4 (1.0-2.7) L Vitamin B12 Level > 2000 PG/ML (193-986) H Folate 15.3 NG/ML (8.6-58.9) Thyroid Stimulating Hormone (TSH) 1.574 uiU/mL (0.358-3.740) Microbiology Date/Time Source Procedure Growth Status 03/09/19 22:00 Sputum Induced Gram Stain - Final Resulted 03/09/19 22:00 Sputum Induced Sputum Culture Pending Resulted Allen Bliss MD March 10, 2019 18:52
[2019-03-10] MEDS: Dyna-Hex 2% Top Sol 2oz TOPIC SCH (19:52)
--- NOTE | 2019-03-10 22:30 | Consultation ---
DATE OF CONSULTATION: 03/10/2019 NEPHROLOGY CONSULTATION CONSULTING PHYSICIAN: Ulisses Tello M.D. REFERRING PHYSICIAN: Fernando Franks M.D. REASON FOR CONSULTATION: Severe hypernatremia and respiratory failure. HISTORY OF PRESENT ILLNESS: This is a very pleasant 88-year-old female, who is a resident of a skilled nursing. Apparently, was found to have some shortness of breath and respiratory distress for which she was transferred to [facility] by paramedics and had to be intubated and on ventilator support. Has had no high fever. However, she was found to have a serum sodium of 170 and creatinine in the range of 0.9 mg/dL. Also, she is getting intravenous antibiotics for presumed pneumonia. She was also started on Levophed drip because of her blood pressure being somewhat low. I have been asked to see her and assess her for this severe hypernatremia. 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 PAST SURGICAL HISTORY: Unobtainable. SOCIAL HISTORY: She is a resident of a skilled nursing. MEDICATIONS: Her medications include albuterol inhaler every 4 hours p.r.n., amlodipine 5 mg p.o. b.i.d., ascorbic acid 500 mg p.o. daily per G tube daily, aspirin 81 mg per G-tube daily, Lipitor 10 mg per G-tube at bedtime, carvedilol 12.5 mg per G-tube b.i.d., clonidine 0.1 mg per G-tube q.6 hours, docusate 100 mg per G-tube daily, furosemide 40 mg per G-tube daily, Atrovent nebulizer q.4 hours p.r.n., Keppra 100 mg per G-tube b.i.d., lisinopril 40 mg per G-tube daily, metoprolol 50 mg per G-tube b.i.d., Protonix 40 mg per G-tube b.i.d., and phenytoin 125 mg per G-tube b.i.d. ALLERGIES: Include penicillin, sulfa, and sulfacetamide. REVIEW OF SYSTEMS: Impossible since she is unable to give me a very fruitful history. PHYSICAL EXAMINATION: GENERAL: She seems to be alert and intubated on the ventilator, laying down in the bed of the intensive care unit. VITAL SIGNS: Blood pressure is 92/50, pulse of 69, respirations 15, and temperature 98.8 HEENT: Head is atraumatic. Eyes, pupils are reactive to light. No evidence of papilledema. Ears, canals are clear. Tympanic membranes are intact. Nose, nares are patent without any nasal discharge. Throat without inflammation or exudate. NECK: Supple. Jugular venous distention is low normal. No cervical adenopathies. No thyromegaly. HEART: Regular rhythm. No gallop. LUNGS: Decreased air excursion bilaterally. ABDOMEN: Supple. Bowel sounds positive. G-tube in place. EXTREMITIES: Lower extremity shows no cyanosis or clubbing. No pedal edema. NEUROLOGICAL: She is intubated. Difficult to assess. There is no focal neurological deficit present. LABORATORY DATA: Showing a sodium of 170, potassium 3.8, chloride 123, carbon dioxide 25, BUN is 48, and creatinine 0.9. Phosphorus 3.9 and magnesium is 2.8. LFTs within normal range. Troponin 0.143. WBC 12.1, hemoglobin is 12.1, hematocrit 39.3, and platelets 148,000. IMPRESSION: 1. Hypernatremia with water deficit calculated at about 8.5 liters. 2. Status post respiratory failure most likely due to pneumonia. 3. Underlying multi-infarct dementia. 4. No signs of fluid overload at this point. She has been started on cefepime as well as vancomycin intravenous. Overnight, we started her on a D5W with 20 mEq of KCl per liter at 160 mL/h. With these measures, her serum sodium has come down to about 160 from 170, and her potassium is down to about 2.3. She is getting some potassium repletion through G tube about 80 mEq total and we will decrease the has D5W with 20 mEq of KCl per liter at 120 mL/hour. Again, I would like to thank you, Dr. Franks for letting me be involved in the care of this very nice lady and please do not hesitate to contact me if you have any questions. Ulisses Marva Tello DR: ARCHANA JOB#: [id number] CC:
[2019-03-11] VITALS (52 sets, daily range): BP systolic 73–137; BP diastolic 28–87
[2019-03-11] MEDS: NovoLOG Insulin Flexpen SUBQ SCH ×5 (00:39→23:50)
[2019-03-11] MEDS: D5W w/KCl 20mEq 1,000 ML IV SCH ×3 (01:00→17:42)
[2019-03-11] MEDS: Vancomycin 500mg/D5W 110ml IVPB SCH ×2 (03:44)
[2019-03-11 05:43] LABS: ANION GAP 4 mmol/L (5-15); CALCIUM 7.8 MG/DL (8.5-10.1); CARBON DIOXIDE 34 MMOL/L (21-32); CHLORIDE 113 MMOL/L (98-107); CREATININE 0.8 MG/DL (0.55-1.30); POTASSIUM 3.3 MMOL/L (3.5-5.1); SODIUM 151 MMOL/L (136-145)
[2019-03-11 05:53] LABS: BLOOD UREA NITROGEN 22 mg/dL (7-18)
[2019-03-11] MEDS: Phenytoin Susp 100mg/4ml GT SCH ×2 (08:06→20:19)
[2019-03-11] MEDS: Pantoprazole Inj IVP SCH (08:06)
[2019-03-11] MEDS: Cefepime 1gm in D5W 55ml IVPB SCH (11:57)
--- NOTE | 2019-03-11 14:18 | Neurology Progress Note ---
Interim History Interim History ROS Limited/Unobtainable: Yes Complaints: AMS Events: More alert - unable to do MRI Review of Systems All Systems: reviewed and negative except above Objective Physical Exam Last Vital Signs Date Time Temp Pulse Resp B/P (MAP) Pulse Ox O2 Delivery O2 Flow Rate FiO2 03/11/19 14:00 75 22 120/73 (89) 95 03/11/19 13:00 Mechanical Ventilator 03/11/19 12:43 35 03/11/19 12:00 99.2 03/10/19 08:55 50.0 Laboratory Tests Test 03/11/19 05:00 Sodium Level 151 MMOL/L (136-145) H Potassium Level 3.3 MMOL/L (3.5-5.1) L Chloride Level 113 MMOL/L (98-107) H Carbon Dioxide Level 34 MMOL/L (21-32) H Anion Gap 4 mmol/L (5-15) L Blood Urea Nitrogen 22 mg/dL (7-18) H Creatinine 0.8 MG/DL (0.55-1.30) Estimat Glomerular Filtration Rate mL/min (>60) Glucose Level 174 MG/DL (74-106) #H Calcium Level 7.8 MG/DL (8.5-10.1) L Magnesium Level 1.9 MG/DL (1.8-2.4) Troponin I 0.263 ng/mL (0.000-0.056) Neurologic Exam Mental Status: awake, alert Objective Remains intubated on ventilator, with gag reflex and tongue protrusion. Not following commands with left gaze preference still Some intermittent eye tracking Right side plegic, with slight movement proximally > distally. Left side w/d and UE now in restraints Impression/Recommendations Problems: (1) Acute encephalopathy (2) Septic shock (3) Respiratory failure (4) Dementia (5) Altered level of consciousness (6) CVA, old, hemiparesis Assessment & Plan: CT Brain 03/09/19: Old left parietal and occipital infarct Moderate atrophy of the brain. 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 Status: stable Diagnostic Impression MRI ordered to rule out acute stroke as cause of increased AMS and respiratory failure but unable to obtain at this time due to ventilatory status Wean Vent as able - plans to trial weaning tomorow Maintain Normoglycemia with ISS May start ASA Maintain normoglycemia with ISS MRI when off vent Continue enteral feeding SBP< 140 Recommendations Q 4 hour neuro obs Abx as needed Wean vent Na 135-145 Replete/ Correct Lytes - Hypokalemia Maintain normoglycemia with ISS Ngozi Franklin N.P. March 11, 2019 14:18
--- NOTE | 2019-03-11 16:51 | Pulmonology Progress Note ---
Assessment/Plan Assessment/Plan 1. Acute respiratory failure. 2. Severe dehydration with shock. 3. Severe hypernatremia. 4. Multi-infarct dementia. 5. Possible acute myocardial infarction. 6. History of heart failure. 7. History of atrial fibrillation. 8. Gastric tube with dysphagia. 9. History of chronic obstructive pulmonary disease. 10. History of seizures with therapeutic Dilantin level. 11. History of hypertension. 12. Hyperlipidemia. 13. Diabetes. 14. Sepsis - bacteremia Na down to 151 off pressors cont hydration, slowly correct Na cannot wean yet BC + GPC clusters recheck CXR and urine Subjective ROS Limited/Unobtainable: Yes Allergies: Coded Allergies: PENICILLINS (Verified Allergy, Unknown, 02/04/18) SULFA (SULFONAMIDE ANTIBIOTICS) (Verified Allergy, Unknown, 02/04/18) SULFACETAMIDE (Unverified Allergy, Unknown, 06/24/18) Objective Last 24 Hour Vital Signs Date Time Temp Pulse Resp B/P (MAP) Pulse Ox O2 Delivery O2 Flow Rate FiO2 03/11/19 16:30 76 18 97/47 (64) 100 03/11/19 16:00 99.6 74 16 84/43 (57) 99 03/11/19 16:00 65 03/11/19 16:00 Mechanical Ventilator Mechanical Ventilator 03/11/19 16:00 16 Mechanical Ventilator 03/11/19 16:00 40 03/11/19 15:30 74 18 99/42 (61) 96 03/11/19 15:00 75 20 137/63 (87) 98 03/11/19 15:00 16 Mechanical Ventilator 03/11/19 14:30 79 20 35 03/11/19 14:30 74 16 129/76 (93) 97 03/11/19 14:00 75 22 120/73 (89) 95 03/11/19 14:00 16 Mechanical Ventilator 03/11/19 13:30 76 16 128/87 (101) 99 03/11/19 13:00 71 17 115/47 (69) 95 03/11/19 13:00 15 Mechanical Ventilator 03/11/19 12:43 72 16 35 03/11/19 12:30 72 16 120/60 (80) 97 03/11/19 12:00 65 03/11/19 12:00 99.2 66 16 104/55 (71) 96 03/11/19 12:00 Mechanical Ventilator Mechanical Ventilator 03/11/19 12:00 16 Mechanical Ventilator 03/11/19 12:00 40 03/11/19 11:30 69 15 110/53 (72) 99 03/11/19 11:00 63 16 104/62 (76) 99 03/11/19 11:00 16 Mechanical Ventilator 03/11/19 10:52 64 17 35 03/11/19 10:30 72 15 109/43 (65) 100 03/11/19 10:00 69 16 102/44 (63) 97 03/11/19 10:00 14 Mechanical Ventilator 03/11/19 09:30 65 16 105/56 (72) 99 03/11/19 09:15 64 16 35 03/11/19 09:00 65 14 104/56 (72) 100 03/11/19 09:00 17 Mechanical Ventilator 03/11/19 08:30 67 17 106/68 (81) 100 03/11/19 08:00 40 03/11/19 08:00 16 Mechanical Ventilator 03/11/19 08:00 Mechanical Ventilator Mechanical Ventilator 03/11/19 08:00 65 03/11/19 08:00 100.0 65 16 101/45 (63) 100 03/11/19 07:30 63 14 106/49 (68) 100 03/11/19 07:08 79 16 40 03/11/19 07:00 16 Mechanical Ventilator 40 03/11/19 07:00 63 16 106/49 (68) 100 03/11/19 06:30 64 16 101/52 (68) 100 03/11/19 06:00 62 16 96/44 (61) 100 03/11/19 06:00 16 Mechanical Ventilator 40 03/11/19 05:30 62 16 90/40 (57) 100 03/11/19 05:30 98.7 03/11/19 05:05 62 16 40 03/11/19 05:00 63 16 84/42 (56) 100 03/11/19 05:00 16 Mechanical Ventilator 40 03/11/19 04:53 16 Mechanical Ventilator 40 03/11/19 04:30 69 16 109/46 (67) 100 03/11/19 04:00 40 03/11/19 04:00 98.7 66 16 108/50 (69) 100 03/11/19 04:00 66 03/11/19 04:00 Mechanical Ventilator Mechanical Ventilator 03/11/19 04:00 16 Mechanical Ventilator 40 03/11/19 03:30 62 16 92/41 (58) 100 03/11/19 03:00 16 Mechanical Ventilator 40 03/11/19 03:00 62 16 92/41 (58) 100 03/11/19 02:45 63 16 40 03/11/19 02:30 66 16 84/55 (65) 100 03/11/19 02:00 65 16 91/42 (58) 100 03/11/19 02:00 16 Mechanical Ventilator 40 03/11/19 01:30 65 16 92/37 (55) 100 03/11/19 01:10 69 16 40 03/11/19 01:00 16 Mechanical Ventilator 40 03/11/19 01:00 68 16 105/50 (68) 100 03/11/19 00:30 68 16 100/52 (68) 100 03/11/19 00:00 40 03/11/19 00:00 98.3 65 16 97/55 (69) 100 03/11/19 00:00 16 Mechanical Ventilator 40 03/11/19 00:00 65 03/11/19 00:00 Mechanical Ventilator Mechanical Ventilator 03/10/19 23:30 64 16 101/42 (61) 100 03/10/19 23:00 16 Mechanical Ventilator 40 03/10/19 23:00 67 16 40 03/10/19 23:00 68 16 105/41 (62) 100 03/10/19 22:30 70 16 92/55 (67) 100 03/10/19 22:00 69 16 106/45 (65) 100 03/10/19 22:00 16 Mechanical Ventilator 40 03/10/19 21:30 68 16 106/45 (65) 100 03/10/19 21:04 65 16 40 03/10/19 21:00 66 16 102/47 (65) 100 03/10/19 21:00 16 Mechanical Ventilator 40 03/10/19 20:30 65 16 100/47 (64) 100 03/10/19 20:00 64 03/10/19 20:00 40 03/10/19 20:00 16 Mechanical Ventilator 40 03/10/19 20:00 64 16 96/53 (67) 100 03/10/19 20:00 Mechanical Ventilator Mechanical Ventilator 03/10/19 19:30 98.9 71 16 107/47 (67) 100 03/10/19 19:00 66 16 40 03/10/19 19:00 16 Mechanical Ventilator 40 03/10/19 19:00 66 16 93/51 (65) 100 03/10/19 18:30 66 16 90/57 (68) 100 03/10/19 18:00 16 Non-Rebreather 40 03/10/19 18:00 64 16 93/44 (60) 100 03/10/19 17:30 66 16 94/52 (66) 100 03/10/19 17:20 78 16 40 03/10/19 17:00 69 16 92/50 (64) 100 03/10/19 17:00 16 Mechanical Ventilator 40 Intake and Output 03/10/19 03/11/19 19:00 07:00 Intake Total 2243.785 ml 1499 ml Output Total 565 ml 470 ml Balance 1678.785 ml 1029 ml Free Water 150 ml IV Total 2093.785 ml 1499 ml Output Urine Total 565 ml 470 ml Objective GT General Appearance: no acute distress HEENT: atraumatic Respiratory/Chest: lungs clear Cardiovascular: normal rate Abdomen: soft, non tender Microbiology Date/Time Source Procedure Growth Status 03/09/19 14:10 Blood Blood Culture - Preliminary Resulted 03/09/19 13:55 Blood Blood Culture - Preliminary Resulted 03/09/19 22:00 Sputum Induced Gram Stain - Final Resulted 03/09/19 22:00 Sputum Culture - Preliminary Gram Negative Bacillus 1 Resulted 03/09/19 14:35 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 Complete 03/09/19 14:35 Rectum VRE Culture - Final NO VANCOMYCIN RESISTANT ENTEROCOCCUS ... Resulted 03/09/19 14:35 Rectum Pending Resulted Laboratory Tests 03/11/19 05:00: Sodium Level 151H, Potassium Level 3.3L, Chloride Level 113H, Carbon Dioxide Level 34H, Anion Gap 4L, Blood Urea Nitrogen 22H, Creatinine 0.8, Estimat Glomerular Filtration Rate , Glucose Level 174#H, Calcium Level 7.8L, Magnesium Level 1.9, Troponin I 0.263H 03/11/19 15:02: Vancomycin Level Trough 12.5H Current Medications Medications (Trade) Dose Ordered Sig/Singh Route PRN Reason Start Time Stop Time Status Last Admin Dose Admin Acetaminophen (Tylenol) 650 mg Q4H PRN GT Mild Pain/Temp > 100.5 03/09/19 20:30 04/08/19 20:29 03/10/19 01:31 Cefepime HCl 1 gm/ Dextrose 55 ml @ 110 mls/hr Q24H IVPB 03/10/19 12:00 03/17/19 11:59 03/11/19 11:57 Chlorhexidine Gluconate (Azra-Hex 2%) 1 applic DAILY@2000 TOPIC 03/10/19 20:00 04/09/19 19:59 03/10/19 19:52 Dextrose (Dextrose 50%) 25 ml Q30M PRN IV Hypoglycemia 03/09/19 21:00 04/08/19 20:59 Dextrose (Dextrose 50%) 50 ml Q30M PRN IV Hypoglycemia 03/09/19 21:00 04/08/19 20:59 Dextrose/ Electrolytes 1,000 ml @ 120 mls/hr Q8H20M IV 03/10/19 17:31 04/09/19 17:30 03/11/19 10:41 Fentanyl Citrate 1000 mcg/Sodium Chloride 100 ml @ 0 mls/hr Q24H IV 03/09/19 20:53 03/16/19 20:52 03/11/19 04:53 Insulin Aspart (NovoLOG) EVERY 6 HOURS SUBQ 03/10/19 00:00 04/09/19 00:00 03/11/19 06:09 Norepinephrine Bitartrate 8 mg/ Dextrose 250 ml @ 0 mls/hr Q24H IV 03/09/19 21:00 04/08/19 20:59 03/10/19 08:54 Pantoprazole (Protonix) 40 mg DAILY IVP 03/10/19 09:00 04/09/19 08:59 03/11/19 08:06 Phenytoin (Dilantin) 125 mg Q12HR GT 03/09/19 21:00 04/08/19 20:59 03/11/19 08:06 Vancomycin HCl (Vanco rx to dose) 1 ea DAILY PRN MISC Per rx protocol 03/09/19 20:30 04/08/19 20:29 Vancomycin HCl 750 mg/Sodium Chloride 275 ml @ 183.333 mls/hr Q12H IVPB 03/11/19 17:00 03/16/19 16:59 Fernando Franks MD March 11, 2019 16:51
--- NOTE | 2019-03-11 16:54 | Cardiology Progress Note ---
Assessment/Plan Assessment/Plan 1. Hypernatremia free water deficit 2. Likely demand ischemia 3. Metabolic alkalosis. 4. altered mentation secondary to above. 5. Anemia, mild. 6. History of seizures. 7. Diabetes history. 8. Hypertension history. 9. hs of diastolic failure 10.New LV systolic dysfunction ? 11. bactermia na improved even more trop min abn still bp is better off pressor but atime goes down again remain on the vent 03/10 echo report noted some echo views were reviewed may not have as bad an lv function as reported atlhgouh the images are not typical stress induced cm may be in the differential no new cxr will order for tomorrow on iv abx urien out put about 30-40 cc per hour per rn continue vent support is getting free water k supplement off diurtics and off bp meds repeat trop adn ekg reviewed not tachy ekg peronally reviewed remains critically ill at risk of dying tele monitor sinus now bactermic on iv abx d/w dtr at bedside lv dysfucntion discussed Subjective ROS Limited/Unobtainable: Yes Objective Last 24 Hour Vital Signs Date Time Temp Pulse Resp B/P (MAP) Pulse Ox O2 Delivery O2 Flow Rate FiO2 03/11/19 16:30 76 18 97/47 (64) 100 03/11/19 16:00 99.6 74 16 84/43 (57) 99 03/11/19 16:00 65 03/11/19 16:00 Mechanical Ventilator Mechanical Ventilator 03/11/19 16:00 16 Mechanical Ventilator 03/11/19 16:00 40 03/11/19 15:30 74 18 99/42 (61) 96 03/11/19 15:00 75 20 137/63 (87) 98 03/11/19 15:00 16 Mechanical Ventilator 03/11/19 14:30 79 20 35 03/11/19 14:30 74 16 129/76 (93) 97 03/11/19 14:00 75 22 120/73 (89) 95 03/11/19 14:00 16 Mechanical Ventilator 03/11/19 13:30 76 16 128/87 (101) 99 03/11/19 13:00 71 17 115/47 (69) 95 03/11/19 13:00 15 Mechanical Ventilator 03/11/19 12:43 72 16 35 03/11/19 12:30 72 16 120/60 (80) 97 03/11/19 12:00 65 03/11/19 12:00 99.2 66 16 104/55 (71) 96 03/11/19 12:00 Mechanical Ventilator Mechanical Ventilator 03/11/19 12:00 16 Mechanical Ventilator 03/11/19 12:00 40 03/11/19 11:30 69 15 110/53 (72) 99 03/11/19 11:00 63 16 104/62 (76) 99 03/11/19 11:00 16 Mechanical Ventilator 03/11/19 10:52 64 17 35 03/11/19 10:30 72 15 109/43 (65) 100 03/11/19 10:00 69 16 102/44 (63) 97 03/11/19 10:00 14 Mechanical Ventilator 03/11/19 09:30 65 16 105/56 (72) 99 03/11/19 09:15 64 16 35 03/11/19 09:00 65 14 104/56 (72) 100 03/11/19 09:00 17 Mechanical Ventilator 03/11/19 08:30 67 17 106/68 (81) 100 03/11/19 08:00 40 03/11/19 08:00 16 Mechanical Ventilator 03/11/19 08:00 Mechanical Ventilator Mechanical Ventilator 03/11/19 08:00 65 03/11/19 08:00 100.0 65 16 101/45 (63) 100 03/11/19 07:30 63 14 106/49 (68) 100 03/11/19 07:08 79 16 40 03/11/19 07:00 16 Mechanical Ventilator 40 03/11/19 07:00 63 16 106/49 (68) 100 03/11/19 06:30 64 16 101/52 (68) 100 03/11/19 06:00 62 16 96/44 (61) 100 03/11/19 06:00 16 Mechanical Ventilator 40 03/11/19 05:30 62 16 90/40 (57) 100 03/11/19 05:30 98.7 03/11/19 05:05 62 16 40 03/11/19 05:00 63 16 84/42 (56) 100 03/11/19 05:00 16 Mechanical Ventilator 40 03/11/19 04:53 16 Mechanical Ventilator 40 03/11/19 04:30 69 16 109/46 (67) 100 03/11/19 04:00 40 03/11/19 04:00 98.7 66 16 108/50 (69) 100 03/11/19 04:00 66 03/11/19 04:00 Mechanical Ventilator Mechanical Ventilator 03/11/19 04:00 16 Mechanical Ventilator 40 03/11/19 03:30 62 16 92/41 (58) 100 03/11/19 03:00 16 Mechanical Ventilator 40 03/11/19 03:00 62 16 92/41 (58) 100 03/11/19 02:45 63 16 40 03/11/19 02:30 66 16 84/55 (65) 100 03/11/19 02:00 65 16 91/42 (58) 100 03/11/19 02:00 16 Mechanical Ventilator 40 03/11/19 01:30 65 16 92/37 (55) 100 03/11/19 01:10 69 16 40 03/11/19 01:00 16 Mechanical Ventilator 40 03/11/19 01:00 68 16 105/50 (68) 100 03/11/19 00:30 68 16 100/52 (68) 100 03/11/19 00:00 40 03/11/19 00:00 98.3 65 16 97/55 (69) 100 03/11/19 00:00 16 Mechanical Ventilator 40 03/11/19 00:00 65 03/11/19 00:00 Mechanical Ventilator Mechanical Ventilator 03/10/19 23:30 64 16 101/42 (61) 100 03/10/19 23:00 16 Mechanical Ventilator 40 03/10/19 23:00 67 16 40 03/10/19 23:00 68 16 105/41 (62) 100 03/10/19 22:30 70 16 92/55 (67) 100 03/10/19 22:00 69 16 106/45 (65) 100 03/10/19 22:00 16 Mechanical Ventilator 40 03/10/19 21:30 68 16 106/45 (65) 100 03/10/19 21:04 65 16 40 03/10/19 21:00 66 16 102/47 (65) 100 03/10/19 21:00 16 Mechanical Ventilator 40 03/10/19 20:30 65 16 100/47 (64) 100 03/10/19 20:00 64 03/10/19 20:00 40 03/10/19 20:00 16 Mechanical Ventilator 40 03/10/19 20:00 64 16 96/53 (67) 100 03/10/19 20:00 Mechanical Ventilator Mechanical Ventilator 03/10/19 19:30 98.9 71 16 107/47 (67) 100 03/10/19 19:00 66 16 40 03/10/19 19:00 16 Mechanical Ventilator 40 03/10/19 19:00 66 16 93/51 (65) 100 03/10/19 18:30 66 16 90/57 (68) 100 03/10/19 18:00 16 Non-Rebreather 40 03/10/19 18:00 64 16 93/44 (60) 100 03/10/19 17:30 66 16 94/52 (66) 100 03/10/19 17:20 78 16 40 03/10/19 17:00 69 16 92/50 (64) 100 03/10/19 17:00 16 Mechanical Ventilator 40 General Appearance: on vent, patient on isolation Neck: supple Cardiovascular: normal rate Respiratory/Chest: expiratory wheezing Abdomen: normal bowel sounds, non tender, soft Extremities: no swelling Intake and Output 03/10/19 03/11/19 19:00 07:00 Intake Total 2243.785 ml 1499 ml Output Total 565 ml 470 ml Balance 1678.785 ml 1029 ml Free Water 150 ml IV Total 2093.785 ml 1499 ml Output Urine Total 565 ml 470 ml Laboratory Tests Test 03/11/19 05:00 03/11/19 15:02 Sodium Level 151 MMOL/L (136-145) H Potassium Level 3.3 MMOL/L (3.5-5.1) L Chloride Level 113 MMOL/L (98-107) H Carbon Dioxide Level 34 MMOL/L (21-32) H Anion Gap 4 mmol/L (5-15) L Blood Urea Nitrogen 22 mg/dL (7-18) H Creatinine 0.8 MG/DL (0.55-1.30) Estimat Glomerular Filtration Rate mL/min (>60) Glucose Level 174 MG/DL (74-106) #H Calcium Level 7.8 MG/DL (8.5-10.1) L Magnesium Level 1.9 MG/DL (1.8-2.4) Troponin I 0.263 ng/mL (0.000-0.056) Vancomycin Level Trough 12.5 ug/mL (5.0-12.0) H Microbiology Date/Time Source Procedure Growth Status 03/09/19 14:10 Blood Blood Culture - Preliminary Resulted 03/09/19 13:55 Blood Blood Culture - Preliminary Resulted 03/09/19 22:00 Sputum Induced Gram Stain - Final Resulted 03/09/19 22:00 Sputum Culture - Preliminary Gram Negative Bacillus 1 Resulted 03/09/19 14:35 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 Complete 03/09/19 14:35 Rectum VRE Culture - Final NO VANCOMYCIN RESISTANT ENTEROCOCCUS ... Resulted 03/09/19 14:35 Rectum Pending Resulted Allen Bliss MD March 11, 2019 16:54
--- NOTE | 2019-03-11 17:01 | Nephrology Progress Note ---
Assessment/Plan Assessment 1) Hypernatremia is improving 2) gram + bacteremia ? source 3) S/P respiratory failure on the Vent Plan: Continue Free water for now IV ATB Awaiting blood Cx identification Subjective Subjective She is still on the vent, NA is down to 151, Blood Cx is + for gram + cocci, , TTE shows Ef of 25-30%, no vegetation Objective Objective Last 24 Hour Vital Signs Date Time Temp Pulse Resp B/P (MAP) Pulse Ox O2 Delivery O2 Flow Rate FiO2 03/11/19 16:30 76 18 97/47 (64) 100 03/11/19 16:00 99.6 74 16 84/43 (57) 99 03/11/19 16:00 65 03/11/19 16:00 Mechanical Ventilator Mechanical Ventilator 03/11/19 16:00 16 Mechanical Ventilator 03/11/19 16:00 40 03/11/19 15:30 74 18 99/42 (61) 96 03/11/19 15:00 75 20 137/63 (87) 98 03/11/19 15:00 16 Mechanical Ventilator 03/11/19 14:30 79 20 35 03/11/19 14:30 74 16 129/76 (93) 97 03/11/19 14:00 75 22 120/73 (89) 95 03/11/19 14:00 16 Mechanical Ventilator 03/11/19 13:30 76 16 128/87 (101) 99 03/11/19 13:00 71 17 115/47 (69) 95 03/11/19 13:00 15 Mechanical Ventilator 03/11/19 12:43 72 16 35 03/11/19 12:30 72 16 120/60 (80) 97 03/11/19 12:00 65 03/11/19 12:00 99.2 66 16 104/55 (71) 96 03/11/19 12:00 Mechanical Ventilator Mechanical Ventilator 03/11/19 12:00 16 Mechanical Ventilator 03/11/19 12:00 40 03/11/19 11:30 69 15 110/53 (72) 99 03/11/19 11:00 63 16 104/62 (76) 99 03/11/19 11:00 16 Mechanical Ventilator 03/11/19 10:52 64 17 35 03/11/19 10:30 72 15 109/43 (65) 100 03/11/19 10:00 69 16 102/44 (63) 97 03/11/19 10:00 14 Mechanical Ventilator 03/11/19 09:30 65 16 105/56 (72) 99 03/11/19 09:15 64 16 35 03/11/19 09:00 65 14 104/56 (72) 100 03/11/19 09:00 17 Mechanical Ventilator 03/11/19 08:30 67 17 106/68 (81) 100 03/11/19 08:00 40 03/11/19 08:00 16 Mechanical Ventilator 03/11/19 08:00 Mechanical Ventilator Mechanical Ventilator 03/11/19 08:00 65 03/11/19 08:00 100.0 65 16 101/45 (63) 100 03/11/19 07:30 63 14 106/49 (68) 100 03/11/19 07:08 79 16 40 03/11/19 07:00 16 Mechanical Ventilator 40 03/11/19 07:00 63 16 106/49 (68) 100 03/11/19 06:30 64 16 101/52 (68) 100 03/11/19 06:00 62 16 96/44 (61) 100 03/11/19 06:00 16 Mechanical Ventilator 40 03/11/19 05:30 62 16 90/40 (57) 100 03/11/19 05:30 98.7 03/11/19 05:05 62 16 40 03/11/19 05:00 63 16 84/42 (56) 100 03/11/19 05:00 16 Mechanical Ventilator 40 03/11/19 04:53 16 Mechanical Ventilator 40 03/11/19 04:30 69 16 109/46 (67) 100 03/11/19 04:00 40 03/11/19 04:00 98.7 66 16 108/50 (69) 100 03/11/19 04:00 66 03/11/19 04:00 Mechanical Ventilator Mechanical Ventilator 03/11/19 04:00 16 Mechanical Ventilator 40 03/11/19 03:30 62 16 92/41 (58) 100 03/11/19 03:00 16 Mechanical Ventilator 40 03/11/19 03:00 62 16 92/41 (58) 100 03/11/19 02:45 63 16 40 03/11/19 02:30 66 16 84/55 (65) 100 03/11/19 02:00 65 16 91/42 (58) 100 03/11/19 02:00 16 Mechanical Ventilator 40 03/11/19 01:30 65 16 92/37 (55) 100 03/11/19 01:10 69 16 40 03/11/19 01:00 16 Mechanical Ventilator 40 03/11/19 01:00 68 16 105/50 (68) 100 03/11/19 00:30 68 16 100/52 (68) 100 03/11/19 00:00 40 03/11/19 00:00 98.3 65 16 97/55 (69) 100 03/11/19 00:00 16 Mechanical Ventilator 40 03/11/19 00:00 65 03/11/19 00:00 Mechanical Ventilator Mechanical Ventilator 03/10/19 23:30 64 16 101/42 (61) 100 03/10/19 23:00 16 Mechanical Ventilator 40 03/10/19 23:00 67 16 40 03/10/19 23:00 68 16 105/41 (62) 100 03/10/19 22:30 70 16 92/55 (67) 100 03/10/19 22:00 69 16 106/45 (65) 100 03/10/19 22:00 16 Mechanical Ventilator 40 03/10/19 21:30 68 16 106/45 (65) 100 03/10/19 21:04 65 16 40 03/10/19 21:00 66 16 102/47 (65) 100 03/10/19 21:00 16 Mechanical Ventilator 40 03/10/19 20:30 65 16 100/47 (64) 100 03/10/19 20:00 64 03/10/19 20:00 40 03/10/19 20:00 16 Mechanical Ventilator 40 03/10/19 20:00 64 16 96/53 (67) 100 03/10/19 20:00 Mechanical Ventilator Mechanical Ventilator 03/10/19 19:30 98.9 71 16 107/47 (67) 100 03/10/19 19:00 66 16 40 03/10/19 19:00 16 Mechanical Ventilator 40 03/10/19 19:00 66 16 93/51 (65) 100 03/10/19 18:30 66 16 90/57 (68) 100 03/10/19 18:00 16 Non-Rebreather 40 03/10/19 18:00 64 16 93/44 (60) 100 03/10/19 17:30 66 16 94/52 (66) 100 03/10/19 17:20 78 16 40 03/10/19 17:00 69 16 92/50 (64) 100 03/10/19 17:00 16 Mechanical Ventilator 40 Intake and Output 03/10/19 03/11/19 19:00 07:00 Intake Total 2243.785 ml 1499 ml Output Total 565 ml 470 ml Balance 1678.785 ml 1029 ml Free Water 150 ml IV Total 2093.785 ml 1499 ml Output Urine Total 565 ml 470 ml Laboratory Tests 03/11/19 05:00: Sodium Level 151H, Potassium Level 3.3L, Chloride Level 113H, Carbon Dioxide Level 34H, Anion Gap 4L, Blood Urea Nitrogen 22H, Creatinine 0.8, Estimat Glomerular Filtration Rate , Glucose Level 174#H, Calcium Level 7.8L, Magnesium Level 1.9, Troponin I 0.263H 03/11/19 15:02: Vancomycin Level Trough 12.5H Height (Feet): 5 Height (Inches): 8.00 Weight (Pounds): 181 General Appearance: WD/WN, no apparent distress EENT: PERRL/EOMI Neck: non-tender, normal alignment Cardiovascular: normal peripheral pulses, normal rate Respiratory/Chest: chest wall non-tender, lungs clear Abdomen: non tender, soft Extremities: normal range of motion, non-tender 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
[2019-03-11] MEDS: Vancomycin 750mg/NS 275ml IVPB SCH ×2 (17:19)
[2019-03-11 18:01] LABS: APPEARANCE,URINE CLEAR; BILIRUBIN, URINE NEGATIVE (NEGATIVE); GLUCOSE, URINE (UA) NEGATIVE (NEGATIVE); KETONES,URINE NEGATIVE (NEGATIVE); LEUKOCYTE ESTERASE ,URINE 1+ (NEGATIVE); NITRITE,URINE NEGATIVE (NEGATIVE); PH,URINE 8 (4.5-8.0); PROTEIN,URINE 2+ (NEGATIVE); UROBILINOGEN,URINE NORMAL MG/DL (0.0-1.0)
[2019-03-11 18:05] LABS: COLOR,URINE YELLOW
[2019-03-11] MEDS: Dyna-Hex 2% Top Sol 2oz TOPIC SCH (20:18)
[2019-03-11] MEDS: Acetaminophen 650mg/20.3ml GT PRN (20:19)
[2019-03-12] VITALS (40 sets, daily range): BP systolic 91–164; BP diastolic 31–148
[2019-03-12] MEDS: D5W w/KCl 20mEq 1,000 ML IV SCH ×3 (01:54→15:17)
--- NOTE | 2019-03-12 04:04 | Neurology Progress Note ---
Interim History Interim History ROS Limited/Unobtainable: Yes Complaints: AMS Events: Vent Weaning Trials to start today Interim History No MS changes Review of Systems All Systems: reviewed and negative except above Objective Physical Exam Last Vital Signs Date Time Temp Pulse Resp B/P (MAP) Pulse Ox O2 Delivery O2 Flow Rate FiO2 03/12/19 03:15 80 21 127/56 (79) 97 03/12/19 03:10 35 03/12/19 00:00 Mechanical Ventilator Mechanical Ventilator 03/12/19 00:00 99.9 03/10/19 08:55 50.0 Laboratory Tests Test 03/11/19 05:00 03/11/19 15:02 03/11/19 17:00 Sodium Level 151 MMOL/L (136-145) H Potassium Level 3.3 MMOL/L (3.5-5.1) L Chloride Level 113 MMOL/L (98-107) H Carbon Dioxide Level 34 MMOL/L (21-32) H Anion Gap 4 mmol/L (5-15) L Blood Urea Nitrogen 22 mg/dL (7-18) H Creatinine 0.8 MG/DL (0.55-1.30) Estimat Glomerular Filtration Rate mL/min (>60) Glucose Level 174 MG/DL (74-106) #H Calcium Level 7.8 MG/DL (8.5-10.1) L Magnesium Level 1.9 MG/DL (1.8-2.4) Troponin I 0.263 ng/mL (0.000-0.056) Vancomycin Level Trough 12.5 ug/mL (5.0-12.0) H Urine Color Yellow Urine Appearance Clear Urine pH 8 (4.5-8.0) Urine Specific [place] 1.010 (1.005-1.035) Urine Protein 2+ (NEGATIVE) H Urine Glucose (UA) Negative (NEGATIVE) Urine Ketones Negative (NEGATIVE) Urine Blood 1+ (NEGATIVE) H Urine Nitrite Negative (NEGATIVE) Urine Bilirubin Negative (NEGATIVE) Urine Urobilinogen Normal MG/DL (0.0-1.0) Urine Leukocyte Esterase 1+ (NEGATIVE) H Urine RBC 0-2 /HPF (0 - 2) Urine WBC 2-4 /HPF (0 - 2) Urine Squamous Epithelial Cells Few /LPF (NONE/OCC) Urine Bacteria Few /HPF (NONE) Neurologic Exam Mental Status: awake, alert Objective Remains intubated on ventilator, with gag reflex and tongue protrusion. Not following commands with left gaze preference still Some intermittent eye tracking Right side plegic, with slight movement proximally > distally. Left side w/d and UE now in restraints Impression/Recommendations Problems: (1) Acute encephalopathy (2) Septic shock (3) Respiratory failure (4) Dementia (5) Altered level of consciousness (6) CVA, old, hemiparesis Assessment & Plan: CT Brain 03/09/19: Old left parietal and occipital infarct Moderate atrophy of the brain. 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 (7) Diabetes Status: stable Diagnostic Impression MRI ordered to rule out acute stroke as cause of increased AMS and respiratory failure but unable to obtain at this time due to ventilatory status Wean Vent as able - supposed to trial today Maintain Normoglycemia with ISS May start ASA Maintain normoglycemia with ISS MRI when off vent Continue enteral feeding SBP< 140 Folate replacement recommended Recommendations Q 4 hour neuro obs Abx as needed Wean vent This was a critical care note. Critical care time of 40 minutes, was performed in order to assess and manage the high probability of imminent or life threatening deterioration to respiratory/neurologic function, with frequent reassessment and excludes all billable procedures. Ngozi Franklin N.P. March 12, 2019 04:04
[2019-03-12] MEDS: Vancomycin 750mg/NS 275ml IVPB SCH ×4 (04:51→17:07)
[2019-03-12 05:02] LABS: BASOPHILS % (AUTO) 0.9 % (0.0-2.0); EOSINOPHILS % (AUTO) 1.7 % (0.0-3.0); HEMATOCRIT 29.8 % (37.0-47.0); HEMOGLOBIN 9.7 G/DL (12.0-16.0); LYMPHOCYTES % (AUTO) 15.7 % (20.0-45.0); MEAN CORPUSCULAR VOLUME 101 FL (80-99); MONOCYTES % (AUTO) 4.2 % (1.0-10.0); NEUTROPHILS % (AUTO) 77.5 % (45.0-75.0); PLATELET COUNT 119 K/UL (150-450); RED BLOOD COUNT 2.96 M/UL (4.20-5.40); RED CELL DISTRIBUTION WIDTH 12.7 % (11.6-14.8); WHITE BLOOD COUNT 11.6 K/UL (4.8-10.8)
[2019-03-12 05:19] LABS: ALANINE AMINOTRANSFERASE 9 U/L (12-78); ALBUMIN 1.6 G/DL (3.4-5.0); ALBUMIN/GLOBULIN RATIO 0.3 (1.0-2.7); ALKALINE PHOSPHATASE 74 U/L (46-116); ANION GAP 5 mmol/L (5-15); ASPARTATE AMINO TRANSFERASE 27 U/L (15-37); BILIRUBIN,TOTAL 0.5 MG/DL (0.2-1.0); BLOOD UREA NITROGEN 26 mg/dL (7-18); CALCIUM 7.8 MG/DL (8.5-10.1); CARBON DIOXIDE 31 MMOL/L (21-32); CHLORIDE 107 MMOL/L (98-107); CREATININE 0.9 MG/DL (0.55-1.30); POTASSIUM 4.7 MMOL/L (3.5-5.1); SODIUM 143 MMOL/L (136-145)
[2019-03-12] MEDS: NovoLOG Insulin Flexpen SUBQ SCH ×3 (05:58→17:04)
[2019-03-12] MEDS: Pantoprazole Inj IVP SCH (08:48)
[2019-03-12] MEDS: Phenytoin Susp 100mg/4ml GT SCH ×2 (08:49→20:22)
[2019-03-12] MEDS: Acetaminophen 650mg/20.3ml GT PRN (08:49)
--- NOTE | 2019-03-12 09:19 | Pulmonology Progress Note ---
Assessment/Plan Assessment/Plan 1. Acute respiratory failure. 2. Severe dehydration with shock. 3. Severe hypernatremia. 4. Multi-infarct dementia. 5. Possible acute myocardial infarction. 6. History of heart failure. 7. History of atrial fibrillation. 8. Gastric tube with dysphagia. 9. History of chronic obstructive pulmonary disease. 10. History of seizures with therapeutic Dilantin level. 11. History of hypertension. 12. Hyperlipidemia. 13. Diabetes. 14. 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 may need trach Subjective ROS Limited/Unobtainable: Yes Allergies: Coded Allergies: PENICILLINS (Verified Allergy, Unknown, 02/04/18) SULFA (SULFONAMIDE ANTIBIOTICS) (Verified Allergy, Unknown, 02/04/18) SULFACETAMIDE (Unverified Allergy, Unknown, 06/24/18) Objective Last 24 Hour Vital Signs Date Time Temp Pulse Resp B/P (MAP) Pulse Ox O2 Delivery O2 Flow Rate FiO2 03/12/19 08:00 73 03/12/19 08:00 100.4 77 14 108/55 (72) 100 03/12/19 08:00 Mechanical Ventilator Mechanical Ventilator 03/12/19 08:00 40 03/12/19 07:00 73 10 106/58 (74) 100 03/12/19 06:45 78 25 35 03/12/19 06:00 74 10 104/52 (69) 100 03/12/19 05:45 77 20 108/92 (97) 98 03/12/19 05:30 83 17 113/47 (69) 100 03/12/19 05:15 82 23 135/75 (95) 100 03/12/19 05:09 80 27 35 03/12/19 05:00 81 31 126/82 (97) 96 03/12/19 04:51 20 Mechanical Ventilator 40 03/12/19 04:45 80 23 124/73 (90) 98 03/12/19 04:30 83 23 119/66 (83) 99 03/12/19 04:15 79 15 98/54 (69) 99 03/12/19 04:00 20 Mechanical Ventilator 40 03/12/19 04:00 Mechanical Ventilator Mechanical Ventilator 03/12/19 04:00 40 03/12/19 04:00 99.0 77 18 113/44 (67) 97 03/12/19 04:00 73 03/12/19 03:45 75 12 105/52 (69) 100 03/12/19 03:30 74 17 93/54 (67) 99 03/12/19 03:15 80 21 127/56 (79) 97 03/12/19 03:10 81 24 35 03/12/19 03:00 84 24 164/148 (153) 98 03/12/19 03:00 127/56 03/12/19 03:00 20 Mechanical Ventilator 40 03/12/19 02:45 82 20 149/124 (132) 70 03/12/19 02:15 76 19 141/73 (95) 100 03/12/19 02:00 76 21 150/59 (89) 100 03/12/19 02:00 141/73 03/12/19 02:00 Mechanical Ventilator 40 03/12/19 01:45 66 16 96/31 (52) 100 03/12/19 01:30 71 18 118/41 (66) 99 03/12/19 01:15 70 23 91/53 (66) 98 03/12/19 01:04 76 17 35 03/12/19 01:00 91/53 03/12/19 01:00 20 Mechanical Ventilator 40 03/12/19 01:00 73 17 125/49 (74) 98 03/12/19 00:45 75 17 102/64 (77) 99 03/12/19 00:30 72 20 99/41 (60) 99 03/12/19 00:00 Mechanical Ventilator Mechanical Ventilator 03/12/19 00:00 72 03/12/19 00:00 99.9 77 24 117/96 (103) 98 03/12/19 00:00 83/36 03/12/19 00:00 20 Mechanical Ventilator 40 03/12/19 00:00 40 03/11/19 23:30 99.9 71 20 73/28 (43) 100 03/11/19 23:19 78/53 03/11/19 23:00 70 13 83/37 (52) 99 03/11/19 23:00 20 Mechanical Ventilator 40 03/11/19 22:45 78 20 35 03/11/19 22:45 77 21 110/39 (62) 99 03/11/19 22:39 100.9 03/11/19 22:30 78 23 106/42 (63) 100 03/11/19 22:15 75 24 113/70 (84) 100 03/11/19 22:00 69 16 92/41 (58) 100 03/11/19 22:00 20 Mechanical Ventilator 40 03/11/19 21:50 100.9 03/11/19 21:47 Mechanical Ventilator 35 03/11/19 21:30 67 14 91/52 (65) 99 03/11/19 21:26 71 16 35 03/11/19 21:15 72 18 93/37 (55) 100 03/11/19 21:00 100.0 75 17 92/55 (67) 100 03/11/19 21:00 106/42 03/11/19 21:00 20 Mechanical Ventilator 40 03/11/19 20:30 76 19 108/87 (94) 95 03/11/19 20:00 72 03/11/19 20:00 20 Mechanical Ventilator 40 03/11/19 20:00 Mechanical Ventilator Mechanical Ventilator 03/11/19 20:00 101.2 73 18 94/50 (65) 100 03/11/19 20:00 40 03/11/19 19:45 77 19 114/63 (80) 100 03/11/19 19:30 75 20 109/87 (94) 100 03/11/19 19:14 72 24 35 03/11/19 19:00 16 Non-Rebreather 40 03/11/19 19:00 68 22 94/66 (75) 100 03/11/19 18:30 69 20 118/74 (89) 96 03/11/19 18:00 67 16 107/84 (92) 100 03/11/19 18:00 16 Mechanical Ventilator 03/11/19 17:30 73 18 102/40 (60) 98 03/11/19 17:00 74 22 97/81 (86) 100 03/11/19 17:00 17 Mechanical Ventilator 03/11/19 16:49 74 16 35 03/11/19 16:30 76 18 97/47 (64) 100 03/11/19 16:00 99.6 74 16 84/43 (57) 99 03/11/19 16:00 65 03/11/19 16:00 Mechanical Ventilator Mechanical Ventilator 03/11/19 16:00 16 Mechanical Ventilator 03/11/19 16:00 40 03/11/19 15:30 74 18 99/42 (61) 96 03/11/19 15:00 75 20 137/63 (87) 98 03/11/19 15:00 16 Mechanical Ventilator 03/11/19 14:30 79 20 35 03/11/19 14:30 74 16 129/76 (93) 97 03/11/19 14:00 75 22 120/73 (89) 95 03/11/19 14:00 16 Mechanical Ventilator 03/11/19 13:30 76 16 128/87 (101) 99 03/11/19 13:00 71 17 115/47 (69) 95 03/11/19 13:00 15 Mechanical Ventilator 03/11/19 12:43 72 16 35 03/11/19 12:30 72 16 120/60 (80) 97 03/11/19 12:00 65 03/11/19 12:00 99.2 66 16 104/55 (71) 96 03/11/19 12:00 Mechanical Ventilator Mechanical Ventilator 03/11/19 12:00 16 Mechanical Ventilator 03/11/19 12:00 40 03/11/19 11:30 69 15 110/53 (72) 99 03/11/19 11:00 63 16 104/62 (76) 99 03/11/19 11:00 16 Mechanical Ventilator 03/11/19 10:52 64 17 35 03/11/19 10:30 72 15 109/43 (65) 100 03/11/19 10:00 69 16 102/44 (63) 97 03/11/19 10:00 14 Mechanical Ventilator 03/11/19 09:30 65 16 105/56 (72) 99 Intake and Output 03/11/19 03/12/19 18:59 06:59 Intake Total 1862 ml 1572.75 ml Output Total 360 ml 510 ml Balance 1502 ml 1062.75 ml Free Water 100 ml 80 ml IV Total 1682 ml 1402.75 ml Tube Feeding 80 ml 90 ml Output Urine Total 360 ml 510 ml # Bowel Movements 1 Objective GT General Appearance: WD/WN HEENT: atraumatic Respiratory/Chest: decreased breath sounds, rhonchi Cardiovascular: normal rate Neurologic/Psychiatric: unresponsiveness Microbiology Date/Time Source Procedure Growth Status 03/09/19 14:10 Blood Blood Culture - Preliminary Staphylococcus Sp Coag Neg Resulted 03/09/19 13:55 Blood Blood Culture - Preliminary Staphylococcus Sp Coag Neg Resulted 03/09/19 22:00 Sputum Induced Gram Stain - Final Resulted 03/09/19 22:00 Sputum Culture - Preliminary Providencia Stuartii YEAST Usual Respiratory M[place]o Resulted 03/09/19 14:35 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 Complete 03/11/19 17:00 Indwelling Cath Urine Culture - Preliminary Resulted 03/09/19 14:35 Rectum VRE Culture - Final NO VANCOMYCIN RESISTANT ENTEROCOCCUS ... Complete 03/09/19 14:35 Rectum - Final NO CARBAPENEM-RESISTANT ENTEROBACTERI... Complete Laboratory Tests 03/11/19 15:02: Vancomycin Level Trough 12.5H 03/11/19 17:00: Urine Color Yellow, Urine Appearance Clear, Urine pH 8, Urine Specific [place] 1.010, Urine Protein 2+H, Urine Glucose (UA) Negative, Urine Ketones Negative, Urine Blood 1+H, Urine Nitrite Negative, Urine Bilirubin Negative, Urine Urobilinogen Normal, Urine Leukocyte Esterase 1+H, Urine RBC 0-2, Urine WBC 2-4 , Urine Squamous Epithelial Cells Few, Urine Bacteria Few 03/12/19 04:30: White Blood Count 11.6H, Red Blood Count 2.96L, Hemoglobin 9.7L, Hematocrit 29.8L, Mean Corpuscular Volume 101H, Mean Corpuscular Hemoglobin 32.7H, Mean Corpuscular Hemoglobin Concent 32.4, Red Cell Distribution Width 12.7, Platelet Count 119L, Mean Platelet Volume 10.5H, Neutrophils (%) (Auto) 77.5H, Lymphocytes (%) (Auto) 15.7L, Monocytes (%) (Auto) 4.2, Eosinophils (%) (Auto) 1.7, Basophils (%) (Auto) 0.9, Sodium Level 143, Potassium Level 4.7, Chloride Level 107, Carbon Dioxide Level 31, Anion Gap 5, Blood Urea Nitrogen 26H, Creatinine 0.9, Estimat Glomerular Filtration Rate , Glucose Level 183H, Calcium Level 7.8L, Total Bilirubin 0.5, Aspartate Amino Transf (AST/SGOT) 27, Alanine Aminotransferase (ALT/SGPT) 9L, Alkaline Phosphatase 74, Total Protein 6.5, Albumin 1.6L, Globulin 4.9, Albumin/Globulin Ratio 0.3L Current Medications Medications (Trade) Dose Ordered Sig/Singh Route PRN Reason Start Time Stop Time Status Last Admin Dose Admin Acetaminophen (Tylenol) 650 mg Q4H PRN GT Mild Pain/Temp > 100.5 03/09/19 20:30 04/08/19 20:29 03/12/19 08:49 Cefepime HCl 1 gm/ Dextrose 55 ml @ 110 mls/hr Q24H IVPB 03/10/19 12:00 03/17/19 11:59 03/11/19 11:57 Chlorhexidine Gluconate (Azra-Hex 2%) 1 applic DAILY@2000 TOPIC 03/10/19 20:00 04/09/19 19:59 03/11/19 20:18 Dextrose (Dextrose 50%) 25 ml Q30M PRN IV Hypoglycemia 03/09/19 21:00 04/08/19 20:59 Dextrose (Dextrose 50%) 50 ml Q30M PRN IV Hypoglycemia 03/09/19 21:00 04/08/19 20:59 Dextrose/ Electrolytes 1,000 ml @ 120 mls/hr Q8H20M IV 03/10/19 17:31 04/09/19 17:30 03/12/19 01:54 Fentanyl Citrate 1000 mcg/Sodium Chloride 100 ml @ 0 mls/hr Q24H IV 03/09/19 20:53 03/16/19 20:52 03/11/19 21:47 Insulin Aspart (NovoLOG) EVERY 6 HOURS SUBQ 03/10/19 00:00 04/09/19 00:00 03/12/19 05:58 Norepinephrine Bitartrate 8 mg/ Dextrose 250 ml @ 0 mls/hr Q24H IV 03/09/19 21:00 04/08/19 20:59 03/11/19 23:19 Pantoprazole (Protonix) 40 mg DAILY IVP 03/10/19 09:00 04/09/19 08:59 03/12/19 08:48 Phenytoin (Dilantin) 125 mg Q12HR GT 03/09/19 21:00 04/08/19 20:59 03/12/19 08:49 Vancomycin HCl (Vanco rx to dose) 1 ea DAILY PRN MISC Per rx protocol 03/09/19 20:30 04/08/19 20:29 Vancomycin HCl 750 mg/Sodium Chloride 275 ml @ 183.333 mls/hr Q12H IVPB 03/11/19 17:00 03/16/19 16:59 03/12/19 04:51 Fernando Franks MD March 12, 2019 09:19
[2019-03-12] MEDS ORDERED: Tubing IV Secondary IV ONE (10:10)
[2019-03-12] MEDS ORDERED: NS 275ml ONE (10:10)
--- NOTE | 2019-03-12 12:18 | Diagnostic Imaging Report ---
Indication: Dyspnea Comparison: 03/09/2019 A single view chest radiograph was obtained. Findings: Right jugular line and endotracheal tube position appears satisfactory and stable. Mild pulmonary vascular congestion appears slightly worse. Small bilateral pleural effusions are possible. Heart size is stable. IMPRESSION: Slightly worsening pulmonary vascular congestion
[2019-03-12] MEDS: Cefepime 1gm in D5W 55ml IVPB SCH (13:03)
--- NOTE | 2019-03-12 14:48 | Nephrology Progress Note ---
Assessment/Plan Assessment 1) Hypernatremia is improving 2) coag + staph bacteremia ? source 3) S/P respiratory failure on the Vent Plan: will decrease D5w to 50cc/hr IV ATB Subjective Subjective She is still on the vent, restarted back on Levophed, NA is down to 143 Objective Objective Last 24 Hour Vital Signs Date Time Temp Pulse Resp B/P (MAP) Pulse Ox O2 Delivery O2 Flow Rate FiO2 03/12/19 14:00 75 18 104/58 (73) 100 03/12/19 13:00 77 19 102/54 (70) 100 03/12/19 12:51 66 16 35 03/12/19 12:00 Mechanical Ventilator Mechanical Ventilator 03/12/19 12:00 98.9 72 14 105/56 (72) 100 03/12/19 12:00 77 03/12/19 12:00 40 03/12/19 11:08 63 16 35 03/12/19 11:00 72 13 101/55 (70) 100 03/12/19 10:00 73 13 104/58 (73) 100 03/12/19 09:24 74 17 35 03/12/19 09:19 99.9 03/12/19 09:00 74 10 100/55 (70) 100 03/12/19 08:00 73 03/12/19 08:00 100.4 77 14 108/55 (72) 100 03/12/19 08:00 Mechanical Ventilator Mechanical Ventilator 03/12/19 08:00 40 03/12/19 07:00 73 10 106/58 (74) 100 03/12/19 06:45 78 25 35 03/12/19 06:00 74 10 104/52 (69) 100 03/12/19 05:45 77 20 108/92 (97) 98 03/12/19 05:30 83 17 113/47 (69) 100 03/12/19 05:15 82 23 135/75 (95) 100 03/12/19 05:09 80 27 35 03/12/19 05:00 81 31 126/82 (97) 96 03/12/19 04:51 20 Mechanical Ventilator 40 03/12/19 04:45 80 23 124/73 (90) 98 03/12/19 04:30 83 23 119/66 (83) 99 03/12/19 04:15 79 15 98/54 (69) 99 03/12/19 04:00 20 Mechanical Ventilator 40 03/12/19 04:00 Mechanical Ventilator Mechanical Ventilator 03/12/19 04:00 40 03/12/19 04:00 99.0 77 18 113/44 (67) 97 03/12/19 04:00 73 03/12/19 03:45 75 12 105/52 (69) 100 03/12/19 03:30 74 17 93/54 (67) 99 03/12/19 03:15 80 21 127/56 (79) 97 03/12/19 03:10 81 24 35 03/12/19 03:00 84 24 164/148 (153) 98 03/12/19 03:00 127/56 03/12/19 03:00 20 Mechanical Ventilator 40 03/12/19 02:45 82 20 149/124 (132) 70 03/12/19 02:15 76 19 141/73 (95) 100 03/12/19 02:00 76 21 150/59 (89) 100 03/12/19 02:00 141/73 03/12/19 02:00 Mechanical Ventilator 40 03/12/19 01:45 66 16 96/31 (52) 100 03/12/19 01:30 71 18 118/41 (66) 99 03/12/19 01:15 70 23 91/53 (66) 98 03/12/19 01:04 76 17 35 03/12/19 01:00 91/53 03/12/19 01:00 20 Mechanical Ventilator 40 03/12/19 01:00 73 17 125/49 (74) 98 03/12/19 00:45 75 17 102/64 (77) 99 03/12/19 00:30 72 20 99/41 (60) 99 03/12/19 00:00 Mechanical Ventilator Mechanical Ventilator 03/12/19 00:00 72 03/12/19 00:00 99.9 77 24 117/96 (103) 98 03/12/19 00:00 83/36 03/12/19 00:00 20 Mechanical Ventilator 40 03/12/19 00:00 40 03/11/19 23:30 99.9 71 20 73/28 (43) 100 03/11/19 23:19 78/53 03/11/19 23:00 70 13 83/37 (52) 99 03/11/19 23:00 20 Mechanical Ventilator 40 03/11/19 22:45 78 20 35 03/11/19 22:45 77 21 110/39 (62) 99 03/11/19 22:39 100.9 03/11/19 22:30 78 23 106/42 (63) 100 03/11/19 22:15 75 24 113/70 (84) 100 03/11/19 22:00 69 16 92/41 (58) 100 03/11/19 22:00 20 Mechanical Ventilator 40 03/11/19 21:47 Mechanical Ventilator 35 03/11/19 21:30 67 14 91/52 (65) 99 03/11/19 21:26 71 16 35 03/11/19 21:15 72 18 93/37 (55) 100 03/11/19 21:00 100.0 75 17 92/55 (67) 100 03/11/19 21:00 106/42 03/11/19 21:00 20 Mechanical Ventilator 40 03/11/19 20:30 76 19 108/87 (94) 95 03/11/19 20:00 72 03/11/19 20:00 20 Mechanical Ventilator 40 03/11/19 20:00 Mechanical Ventilator Mechanical Ventilator 03/11/19 20:00 101.2 73 18 94/50 (65) 100 03/11/19 20:00 40 03/11/19 19:45 77 19 114/63 (80) 100 03/11/19 19:30 75 20 109/87 (94) 100 03/11/19 19:14 72 24 35 03/11/19 19:00 16 Non-Rebreather 40 03/11/19 19:00 68 22 94/66 (75) 100 03/11/19 18:30 69 20 118/74 (89) 96 03/11/19 18:00 67 16 107/84 (92) 100 03/11/19 18:00 16 Mechanical Ventilator 03/11/19 17:30 73 18 102/40 (60) 98 03/11/19 17:00 74 22 97/81 (86) 100 03/11/19 17:00 17 Mechanical Ventilator 03/11/19 16:49 74 16 35 03/11/19 16:30 76 18 97/47 (64) 100 03/11/19 16:00 99.6 74 16 84/43 (57) 99 03/11/19 16:00 65 03/11/19 16:00 Mechanical Ventilator Mechanical Ventilator 03/11/19 16:00 16 Mechanical Ventilator 03/11/19 16:00 40 03/11/19 15:30 74 18 99/42 (61) 96 03/11/19 15:00 75 20 137/63 (87) 98 03/11/19 15:00 16 Mechanical Ventilator Intake and Output 03/11/19 03/12/19 18:59 06:59 Intake Total 1862 ml 1572.75 ml Output Total 360 ml 510 ml Balance 1502 ml 1062.75 ml Free Water 100 ml 80 ml IV Total 1682 ml 1402.75 ml Tube Feeding 80 ml 90 ml Output Urine Total 360 ml 510 ml # Bowel Movements 1 Laboratory Tests 03/11/19 15:02: Vancomycin Level Trough 12.5H 03/11/19 17:00: Urine Color Yellow, Urine Appearance Clear, Urine pH 8, Urine Specific [place] 1.010, Urine Protein 2+H, Urine Glucose (UA) Negative, Urine Ketones Negative, Urine Blood 1+H, Urine Nitrite Negative, Urine Bilirubin Negative, Urine Urobilinogen Normal, Urine Leukocyte Esterase 1+H, Urine RBC 0-2, Urine WBC 2-4 , Urine Squamous Epithelial Cells Few, Urine Bacteria Few 03/12/19 04:30: White Blood Count 11.6H, Red Blood Count 2.96L, Hemoglobin 9.7L, Hematocrit 29.8L, Mean Corpuscular Volume 101H, Mean Corpuscular Hemoglobin 32.7H, Mean Corpuscular Hemoglobin Concent 32.4, Red Cell Distribution Width 12.7, Platelet Count 119L, Mean Platelet Volume 10.5H, Neutrophils (%) (Auto) 77.5H, Lymphocytes (%) (Auto) 15.7L, Monocytes (%) (Auto) 4.2, Eosinophils (%) (Auto) 1.7, Basophils (%) (Auto) 0.9, Sodium Level 143, Potassium Level 4.7, Chloride Level 107, Carbon Dioxide Level 31, Anion Gap 5, Blood Urea Nitrogen 26H, Creatinine 0.9, Estimat Glomerular Filtration Rate , Glucose Level 183H, Calcium Level 7.8L, Total Bilirubin 0.5, Aspartate Amino Transf (AST/SGOT) 27, Alanine Aminotransferase (ALT/SGPT) 9L, Alkaline Phosphatase 74, Total Protein 6.5, Albumin 1.6L, Globulin 4.9, Albumin/Globulin Ratio 0.3L Height (Feet): 5 Height (Inches): 8.00 Weight (Pounds): 183 General Appearance: WD/WN, no apparent distress EENT: PERRL/EOMI Neck: non-tender, normal alignment Cardiovascular: normal peripheral pulses, normal rate, no JVD Respiratory/Chest: lungs clear Abdomen: normal bowel sounds, non tender Neurologic: respite worker II-XII grossly normal Ulisses Tello MD March 12, 2019 14:48
[2019-03-12] MEDS ORDERED: cefTRIAXone 1gm/D5W 55ml IVPB SCH ×2 (16:00)
[2019-03-12] MEDS: Meropenem 1gm in NS 55ml IVPB SCH ×2 (17:07→21:42)
--- NOTE | 2019-03-12 18:43 | Cardiology Progress Note ---
Assessment/Plan Assessment/Plan 1. Hypernatremia free water deficit 2. Likely demand ischemia 3. Metabolic alkalosis. 4. altered mentation secondary to above. 5. Anemia, mild. 6. History of seizures. 7. Diabetes history. 8. Hypertension history. 9. hs of diastolic failure 10.New LV systolic dysfunction ? 11. bactermia na normal trop min abn still bp is better off pressor remain on the vent 03/10 echo report noted some echo views were reviewed may not have as bad an lv function as reported atlhgouh the images are not typical stress induced cm may be in the differential cxr reviewewed personally on iv abx continue vent support is getting free water k supplement off diurtics and off bp meds repeat trop adn ekg reviewed not tachy ekg peronally reviewed remains critically ill at risk of dying tele monitor sinus now bactermic on iv abx d/w dtr at bedside Subjective ROS Limited/Unobtainable: Yes Objective Last 24 Hour Vital Signs Date Time Temp Pulse Resp B/P (MAP) Pulse Ox O2 Delivery O2 Flow Rate FiO2 03/12/19 17:02 74 17 35 03/12/19 17:00 70 18 100/52 (68) 100 03/12/19 16:00 Mechanical Ventilator Mechanical Ventilator 03/12/19 16:00 40 03/12/19 16:00 78 03/12/19 16:00 99.0 75 16 102/54 (70) 100 03/12/19 15:00 74 18 108/55 (72) 100 03/12/19 14:44 71 18 35 03/12/19 14:00 75 18 104/58 (73) 100 03/12/19 13:00 77 19 102/54 (70) 100 03/12/19 12:51 66 16 35 03/12/19 12:00 Mechanical Ventilator Mechanical Ventilator 03/12/19 12:00 98.9 72 14 105/56 (72) 100 03/12/19 12:00 77 03/12/19 12:00 40 03/12/19 11:08 63 16 35 03/12/19 11:00 72 13 101/55 (70) 100 03/12/19 10:00 73 13 104/58 (73) 100 03/12/19 09:24 74 17 35 03/12/19 09:19 99.9 03/12/19 09:00 74 10 100/55 (70) 100 03/12/19 08:00 73 03/12/19 08:00 100.4 77 14 108/55 (72) 100 03/12/19 08:00 Mechanical Ventilator Mechanical Ventilator 03/12/19 08:00 40 03/12/19 07:00 73 10 106/58 (74) 100 03/12/19 06:45 78 25 35 03/12/19 06:00 74 10 104/52 (69) 100 03/12/19 05:45 77 20 108/92 (97) 98 03/12/19 05:30 83 17 113/47 (69) 100 03/12/19 05:15 82 23 135/75 (95) 100 03/12/19 05:09 80 27 35 03/12/19 05:00 81 31 126/82 (97) 96 03/12/19 04:51 20 Mechanical Ventilator 40 03/12/19 04:45 80 23 124/73 (90) 98 03/12/19 04:30 83 23 119/66 (83) 99 03/12/19 04:15 79 15 98/54 (69) 99 03/12/19 04:00 20 Mechanical Ventilator 40 03/12/19 04:00 Mechanical Ventilator Mechanical Ventilator 03/12/19 04:00 40 03/12/19 04:00 99.0 77 18 113/44 (67) 97 03/12/19 04:00 73 03/12/19 03:45 75 12 105/52 (69) 100 03/12/19 03:30 74 17 93/54 (67) 99 03/12/19 03:15 80 21 127/56 (79) 97 03/12/19 03:10 81 24 35 03/12/19 03:00 84 24 164/148 (153) 98 03/12/19 03:00 127/56 03/12/19 03:00 20 Mechanical Ventilator 40 03/12/19 02:45 82 20 149/124 (132) 70 03/12/19 02:15 76 19 141/73 (95) 100 03/12/19 02:00 76 21 150/59 (89) 100 03/12/19 02:00 141/73 03/12/19 02:00 Mechanical Ventilator 40 03/12/19 01:45 66 16 96/31 (52) 100 03/12/19 01:30 71 18 118/41 (66) 99 03/12/19 01:15 70 23 91/53 (66) 98 03/12/19 01:04 76 17 35 03/12/19 01:00 91/53 03/12/19 01:00 20 Mechanical Ventilator 40 03/12/19 01:00 73 17 125/49 (74) 98 03/12/19 00:45 75 17 102/64 (77) 99 03/12/19 00:30 72 20 99/41 (60) 99 03/12/19 00:00 Mechanical Ventilator Mechanical Ventilator 03/12/19 00:00 72 03/12/19 00:00 99.9 77 24 117/96 (103) 98 03/12/19 00:00 83/36 03/12/19 00:00 20 Mechanical Ventilator 40 03/12/19 00:00 40 03/11/19 23:30 99.9 71 20 73/28 (43) 100 03/11/19 23:19 78/53 03/11/19 23:00 70 13 83/37 (52) 99 03/11/19 23:00 20 Mechanical Ventilator 40 03/11/19 22:45 78 20 35 03/11/19 22:45 77 21 110/39 (62) 99 03/11/19 22:39 100.9 03/11/19 22:30 78 23 106/42 (63) 100 03/11/19 22:15 75 24 113/70 (84) 100 03/11/19 22:00 69 16 92/41 (58) 100 03/11/19 22:00 20 Mechanical Ventilator 40 03/11/19 21:47 Mechanical Ventilator 35 03/11/19 21:30 67 14 91/52 (65) 99 03/11/19 21:26 71 16 35 03/11/19 21:15 72 18 93/37 (55) 100 03/11/19 21:00 100.0 75 17 92/55 (67) 100 03/11/19 21:00 106/42 03/11/19 21:00 20 Mechanical Ventilator 40 03/11/19 20:30 76 19 108/87 (94) 95 03/11/19 20:00 72 03/11/19 20:00 20 Mechanical Ventilator 40 03/11/19 20:00 Mechanical Ventilator Mechanical Ventilator 03/11/19 20:00 101.2 73 18 94/50 (65) 100 03/11/19 20:00 40 03/11/19 19:45 77 19 114/63 (80) 100 03/11/19 19:30 75 20 109/87 (94) 100 03/11/19 19:14 72 24 35 03/11/19 19:00 16 Non-Rebreather 40 03/11/19 19:00 68 22 94/66 (75) 100 General Appearance: no apparent distress, on vent Neck: supple Cardiovascular: normal rate Respiratory/Chest: expiratory wheezing Abdomen: normal bowel sounds, non tender, soft Extremities: no swelling Intake and Output 03/11/19 03/12/19 19:00 07:00 Intake Total 1885 ml 1436.75 ml Output Total 360 ml 530 ml Balance 1525 ml 906.75 ml Free Water 100 ml 80 ml IV Total 1685 ml 1276.75 ml Tube Feeding 100 ml 80 ml Output Urine Total 360 ml 530 ml # Bowel Movements 1 Laboratory Tests Test 03/12/19 04:30 White Blood Count 11.6 K/UL (4.8-10.8) H Red Blood Count 2.96 M/UL (4.20-5.40) L Hemoglobin 9.7 G/DL (12.0-16.0) L Hematocrit 29.8 % (37.0-47.0) L Mean Corpuscular Volume 101 FL (80-99) H Mean Corpuscular Hemoglobin 32.7 PG (27.0-31.0) H Mean Corpuscular Hemoglobin Concent 32.4 G/DL (32.0-36.0) Red Cell Distribution Width 12.7 % (11.6-14.8) Platelet Count 119 K/UL (150-450) L Mean Platelet Volume 10.5 FL (6.5-10.1) H Neutrophils (%) (Auto) 77.5 % (45.0-75.0) H Lymphocytes (%) (Auto) 15.7 % (20.0-45.0) L Monocytes (%) (Auto) 4.2 % (1.0-10.0) Eosinophils (%) (Auto) 1.7 % (0.0-3.0) Basophils (%) (Auto) 0.9 % (0.0-2.0) Sodium Level 143 MMOL/L (136-145) Potassium Level 4.7 MMOL/L (3.5-5.1) Chloride Level 107 MMOL/L (98-107) Carbon Dioxide Level 31 MMOL/L (21-32) Anion Gap 5 mmol/L (5-15) Blood Urea Nitrogen 26 mg/dL (7-18) H Creatinine 0.9 MG/DL (0.55-1.30) Estimat Glomerular Filtration Rate mL/min (>60) Glucose Level 183 MG/DL (74-106) H Calcium Level 7.8 MG/DL (8.5-10.1) L Total Bilirubin 0.5 MG/DL (0.2-1.0) Aspartate Amino Transf (AST/SGOT) 27 U/L (15-37) Alanine Aminotransferase (ALT/SGPT) 9 U/L (12-78) L Alkaline Phosphatase 74 U/L (46-116) Total Protein 6.5 G/DL (6.4-8.2) Albumin 1.6 G/DL (3.4-5.0) L Globulin 4.9 g/dL Albumin/Globulin Ratio 0.3 (1.0-2.7) L Microbiology Date/Time Source Procedure Growth Status 03/09/19 22:00 Sputum Induced Gram Stain - Final Resulted 03/09/19 22:00 Sputum Culture - Preliminary Providencia Stuartii YEAST Usual Respiratory Minoo Resulted 03/11/19 17:00 Indwelling Cath Urine Culture - Preliminary Resulted Allen Bliss MD March 12, 2019 18:43
[2019-03-12] MEDS ORDERED: DULCOLAX10 MG RC (18:55)
[2019-03-12] MEDS ORDERED: VITAMIN C500 MG/11 GT (18:55)
[2019-03-12] MEDS ORDERED: CENTRUM MU9 MG/15 ML GT (18:55)
[2019-03-12] MEDS ORDERED: OMEPRAZOLE20 M2 GT (18:55)
[2019-03-12] MEDS ORDERED: HUMULIN 70100 UNIT/2 SUBQ (18:55)
[2019-03-12] MEDS ORDERED: PHENYTOIN50 MG GT (18:55)
[2019-03-12] MEDS ORDERED: LIPITOR10 MG GT (18:55)
[2019-03-12] MEDS ORDERED: CRANBERRY425 MG GT (18:55)
[2019-03-12] MEDS ORDERED: FUROSEMIDE80 M1 GT (18:55)
[2019-03-12] MEDS: Dyna-Hex 2% Top Sol 2oz TOPIC SCH (19:46)
[2019-03-13] VITALS (24 sets, daily range): BP systolic 92–163; BP diastolic 46–83
[2019-03-13] MEDS: LORazepam Inj 2mg/ml 1ml IV PRN ×2 (00:17→23:38)
[2019-03-13] MEDS: D5W w/KCl 20mEq 1,000 ML IV SCH ×2 (00:45→21:00)
[2019-03-13] MEDS: Vancomycin 750mg/NS 275ml IVPB SCH ×4 (05:03→17:00)
[2019-03-13 05:33] LABS: BASOPHILS % (AUTO) 0.6 % (0.0-2.0); EOSINOPHILS % (AUTO) 1.2 % (0.0-3.0); HEMOGLOBIN 8.9 G/DL (12.0-16.0); LYMPHOCYTES % (AUTO) 14.6 % (20.0-45.0); MEAN CORPUSCULAR VOLUME 100 FL (80-99); MONOCYTES % (AUTO) 4.7 % (1.0-10.0); NEUTROPHILS % (AUTO) 78.9 % (45.0-75.0); PLATELET COUNT 105 K/UL (150-450); RED BLOOD COUNT 2.69 M/UL (4.20-5.40); RED CELL DISTRIBUTION WIDTH 12.4 % (11.6-14.8); WHITE BLOOD COUNT 10.7 K/UL (4.8-10.8)
[2019-03-13 05:56] LABS: ALANINE AMINOTRANSFERASE 11 U/L (12-78); ALBUMIN 1.6 G/DL (3.4-5.0); ALBUMIN/GLOBULIN RATIO 0.4 (1.0-2.7); ALKALINE PHOSPHATASE 71 U/L (46-116); ANION GAP 5 mmol/L (5-15); ASPARTATE AMINO TRANSFERASE 26 U/L (15-37); BILIRUBIN,TOTAL 0.4 MG/DL (0.2-1.0); BLOOD UREA NITROGEN 19 mg/dL (7-18); CALCIUM 8.1 MG/DL (8.5-10.1); CARBON DIOXIDE 30 MMOL/L (21-32); CHLORIDE 110 MMOL/L (98-107); CREATININE 0.7 MG/DL (0.55-1.30); POTASSIUM 3.9 MMOL/L (3.5-5.1); SODIUM 145 MMOL/L (136-145)
[2019-03-13] MEDS: Meropenem 1gm in NS 55ml IVPB SCH ×3 (06:34→22:09)
[2019-03-13] MEDS: NovoLOG Insulin Flexpen SUBQ SCH ×4 (06:35→17:15)
--- NOTE | 2019-03-13 08:01 | Diagnostic Imaging Report ---
APPROVED REPORT CPT Code: 18260 Present Symptoms Comments: BILATERAL LEGS PAIN. BILATERAL: Imaging reveals a patent deep venous system bilaterally. There is no evidence of thrombus within the femoral, popliteal or tibial segments. The greater saphenous veins are also within normal limits. Doppler indicates normal spontaneous flow within these segments.
[2019-03-13] MEDS: Phenytoin Susp 100mg/4ml GT SCH ×2 (08:17→20:41)
[2019-03-13] MEDS: Pantoprazole Inj IVP SCH (08:17)
[2019-03-13] MEDS ORDERED: Sterile Water Irrig 1000ml IRRIG ONE (10:30)
--- NOTE | 2019-03-13 11:36 | Neurology Progress Note ---
Interim History Interim History ROS Limited/Unobtainable: Yes Complaints: AMS Events: Failed trials for vent weaning yesterday and today, off sedation now Review of Systems Neuro Review of Systems Increased lethargy/ drowsiness on exam. All Systems: reviewed and negative except above Objective Physical Exam Last Vital Signs Date Time Temp Pulse Resp B/P (MAP) Pulse Ox O2 Delivery O2 Flow Rate FiO2 03/13/19 11:00 66 16 104/63 (77) 100 03/13/19 10:39 35 03/13/19 08:00 Mechanical Ventilator Mechanical Ventilator 03/13/19 08:00 98.8 03/10/19 08:55 50.0 Laboratory Tests Test 03/13/19 04:30 White Blood Count 10.7 K/UL (4.8-10.8) Red Blood Count 2.69 M/UL (4.20-5.40) L Hemoglobin 8.9 G/DL (12.0-16.0) L Hematocrit 27.0 % (37.0-47.0) L Mean Corpuscular Volume 100 FL (80-99) H Mean Corpuscular Hemoglobin 33.3 PG (27.0-31.0) H Mean Corpuscular Hemoglobin Concent 33.1 G/DL (32.0-36.0) Red Cell Distribution Width 12.4 % (11.6-14.8) Platelet Count 105 K/UL (150-450) L Mean Platelet Volume 11.2 FL (6.5-10.1) H Neutrophils (%) (Auto) 78.9 % (45.0-75.0) H Lymphocytes (%) (Auto) 14.6 % (20.0-45.0) L Monocytes (%) (Auto) 4.7 % (1.0-10.0) Eosinophils (%) (Auto) 1.2 % (0.0-3.0) Basophils (%) (Auto) 0.6 % (0.0-2.0) Sodium Level 145 MMOL/L (136-145) Potassium Level 3.9 MMOL/L (3.5-5.1) Chloride Level 110 MMOL/L (98-107) H Carbon Dioxide Level 30 MMOL/L (21-32) Anion Gap 5 mmol/L (5-15) Blood Urea Nitrogen 19 mg/dL (7-18) H Creatinine 0.7 MG/DL (0.55-1.30) Estimat Glomerular Filtration Rate mL/min (>60) Glucose Level 124 MG/DL (74-106) H Calcium Level 8.1 MG/DL (8.5-10.1) L Total Bilirubin 0.4 MG/DL (0.2-1.0) Aspartate Amino Transf (AST/SGOT) 26 U/L (15-37) Alanine Aminotransferase (ALT/SGPT) 11 U/L (12-78) L Alkaline Phosphatase 71 U/L (46-116) Total Protein 6.1 G/DL (6.4-8.2) L Albumin 1.6 G/DL (3.4-5.0) L Globulin 4.5 g/dL Albumin/Globulin Ratio 0.4 (1.0-2.7) L Neurologic Exam Mental Status: awake, alert Objective Remains intubated on ventilator, with gag reflex Not following commands and more lethargic on exam today. Right side plegic, with slight movement proximally > distally. Left side w/d and UE now in restraints Impression/Recommendations Problems: (1) Acute encephalopathy (2) Septic shock (3) Respiratory failure (4) Dementia (5) Altered level of consciousness (6) CVA, old, hemiparesis Assessment & Plan: CT Brain 03/09/19: Old left parietal and occipital infarct Moderate atrophy of the brain. 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 (7) Diabetes Status: stable Diagnostic Impression MRI ordered to rule out acute stroke as cause of increased AMS and respiratory failure but unable to obtain at this time due to ventilatory status Wean Vent as able - failed trials x 2, now off sedation with increased lethargy on exam. RECOMMEND ABG at this time to make vent adjustments for possible hypoxia/ hypoxemia. Maintain Normoglycemia with ISS May start ASA HgB> 8 - dropping on CBC, track and trend Maintain normoglycemia with ISS MRI when off vent Continue enteral feeding SBP< 140 Folate replacement recommended Recommendations Q 4 hour neuro obs Abx as needed Wean vent This was a critical care note Ngozi Franklin N.P. March 13, 2019 11:36
--- NOTE | 2019-03-13 13:18 | Cardiology Progress Note ---
Assessment/Plan Assessment/Plan 1. Hypernatremia free water deficit 2. Likely demand ischemia 3. Metabolic alkalosis. 4. altered mentation secondary to above. 5. Anemia, mild. 6. History of seizures. 7. Diabetes history. 8. Hypertension history. 9. hs of diastolic failure 10.New LV systolic dysfunction ? 11. bactermia na normal trop min abn still bp is better off pressor remain on the vent mod secretion per staff 03/10 echo report noted some echo views were reviewed may not have as bad an lv function as reported atlhgouh the images are not typical stress induced cm may be in the differential on iv abx continue vent support is getting free water off diurtics and off bp meds not tachy hemodynamic are better tele monitor sinus now bactermic on iv abx d/w dtr at bedside Subjective ROS Limited/Unobtainable: Yes Objective Last 24 Hour Vital Signs Date Time Temp Pulse Resp B/P (MAP) Pulse Ox O2 Delivery O2 Flow Rate FiO2 03/13/19 13:00 69 16 35 03/13/19 13:00 99.0 70 17 109/49 (69) 100 03/13/19 12:00 66 16 106/49 (68) 100 03/13/19 12:00 35 03/13/19 12:00 66 03/13/19 12:00 Mechanical Ventilator Mechanical Ventilator 03/13/19 11:00 66 16 104/63 (77) 100 03/13/19 10:39 70 17 35 03/13/19 10:00 62 16 98/48 (65) 100 03/13/19 09:00 69 16 125/54 (77) 100 03/13/19 08:57 62 16 35 03/13/19 08:00 35 03/13/19 08:00 72 03/13/19 08:00 Mechanical Ventilator Mechanical Ventilator 03/13/19 08:00 98.8 65 17 111/51 (71) 100 03/13/19 07:18 71 16 35 03/13/19 07:00 71 16 120/52 (74) 100 03/13/19 06:00 63 16 108/56 (73) 100 03/13/19 05:00 67 16 131/59 (83) 100 03/13/19 04:51 73 16 35 35 03/13/19 04:00 35 03/13/19 04:00 66 03/13/19 04:00 Mechanical Ventilator Mechanical Ventilator 03/13/19 04:00 99.0 67 16 99/47 (64) 100 03/13/19 03:00 70 16 112/78 (89) 100 03/13/19 02:53 71 16 35 35 03/13/19 02:00 73 16 108/50 (69) 100 03/13/19 01:00 80 9 111/48 (69) 100 03/13/19 00:33 80 17 35 35 03/13/19 00:00 35 03/13/19 00:00 98.9 90 30 163/83 (109) 100 03/13/19 00:00 69 03/13/19 00:00 Mechanical Ventilator Mechanical Ventilator 03/12/19 23:00 67 16 106/58 (74) 100 03/12/19 22:42 62 16 35 35 03/12/19 22:00 66 15 107/46 (66) 100 03/12/19 21:18 64 16 35 35 03/12/19 21:00 66 17 101/51 (68) 100 03/12/19 20:00 99.1 63 16 116/57 (76) 100 03/12/19 20:00 35 03/12/19 20:00 Mechanical Ventilator Mechanical Ventilator 03/12/19 20:00 61 03/12/19 19:02 71 16 35 35 03/12/19 19:00 75 16 105/68 (80) 100 03/12/19 18:00 72 15 102/55 (71) 100 03/12/19 17:02 74 17 35 03/12/19 17:00 70 18 100/52 (68) 100 03/12/19 16:00 Mechanical Ventilator Mechanical Ventilator 03/12/19 16:00 40 03/12/19 16:00 78 03/12/19 16:00 99.0 75 16 102/54 (70) 100 03/12/19 15:00 74 18 108/55 (72) 100 03/12/19 14:44 71 18 35 03/12/19 14:00 75 18 104/58 (73) 100 General Appearance: no apparent distress, on vent, patient on isolation Cardiovascular: normal rate Respiratory/Chest: lungs clear Abdomen: normal bowel sounds, non tender, soft Extremities: trace edema Intake and Output 03/12/19 03/13/19 18:59 06:59 Intake Total 120 ml 1048.333 ml Output Total 650 ml 590 ml Balance -530 ml 458.333 ml Free Water 90 ml IV Total 838.333 ml Tube Feeding 120 ml 120 ml Output Urine Total 650 ml 590 ml # Bowel Movements 3 1 Laboratory Tests Test 03/13/19 04:30 White Blood Count 10.7 K/UL (4.8-10.8) Red Blood Count 2.69 M/UL (4.20-5.40) L Hemoglobin 8.9 G/DL (12.0-16.0) L Hematocrit 27.0 % (37.0-47.0) L Mean Corpuscular Volume 100 FL (80-99) H Mean Corpuscular Hemoglobin 33.3 PG (27.0-31.0) H Mean Corpuscular Hemoglobin Concent 33.1 G/DL (32.0-36.0) Red Cell Distribution Width 12.4 % (11.6-14.8) Platelet Count 105 K/UL (150-450) L Mean Platelet Volume 11.2 FL (6.5-10.1) H Neutrophils (%) (Auto) 78.9 % (45.0-75.0) H Lymphocytes (%) (Auto) 14.6 % (20.0-45.0) L Monocytes (%) (Auto) 4.7 % (1.0-10.0) Eosinophils (%) (Auto) 1.2 % (0.0-3.0) Basophils (%) (Auto) 0.6 % (0.0-2.0) Sodium Level 145 MMOL/L (136-145) Potassium Level 3.9 MMOL/L (3.5-5.1) Chloride Level 110 MMOL/L (98-107) H Carbon Dioxide Level 30 MMOL/L (21-32) Anion Gap 5 mmol/L (5-15) Blood Urea Nitrogen 19 mg/dL (7-18) H Creatinine 0.7 MG/DL (0.55-1.30) Estimat Glomerular Filtration Rate mL/min (>60) Glucose Level 124 MG/DL (74-106) H Calcium Level 8.1 MG/DL (8.5-10.1) L Total Bilirubin 0.4 MG/DL (0.2-1.0) Aspartate Amino Transf (AST/SGOT) 26 U/L (15-37) Alanine Aminotransferase (ALT/SGPT) 11 U/L (12-78) L Alkaline Phosphatase 71 U/L (46-116) Total Protein 6.1 G/DL (6.4-8.2) L Albumin 1.6 G/DL (3.4-5.0) L Globulin 4.5 g/dL Albumin/Globulin Ratio 0.4 (1.0-2.7) L Microbiology Date/Time Source Procedure Growth Status 03/11/19 17:00 Indwelling Cath Urine Culture - Preliminary Gram Negative Víctor Resulted Allen Bliss MD March 13, 2019 13:18
--- NOTE | 2019-03-13 14:45 | Infectious Diseases Prog Note ---
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, echo without vegetation mentioned 2) leukocytosis, fevers 3) respiratory failure, weened off pressors 4) pmh noted 5) allergies - pcn, sulfa P) 1) meropenem and vancomycin 2) check labs, uc and chest x-ray 3) thank you Subjective Allergies: Coded Allergies: PENICILLINS (Verified Allergy, Unknown, 02/04/18) SULFA (SULFONAMIDE ANTIBIOTICS) (Verified Allergy, Unknown, 02/04/18) SULFACETAMIDE (Unverified Allergy, Unknown, 06/24/18) Objective Vital Signs Last 24 Hour Vital Signs Date Time Temp Pulse Resp B/P (MAP) Pulse Ox O2 Delivery O2 Flow Rate FiO2 03/13/19 14:00 64 16 92/46 (61) 96 03/13/19 13:00 69 16 35 03/13/19 13:00 99.0 70 17 109/49 (69) 100 03/13/19 12:00 66 16 106/49 (68) 100 03/13/19 12:00 35 03/13/19 12:00 66 03/13/19 12:00 Mechanical Ventilator Mechanical Ventilator 03/13/19 11:00 66 16 104/63 (77) 100 03/13/19 10:39 70 17 35 03/13/19 10:00 62 16 98/48 (65) 100 03/13/19 09:00 69 16 125/54 (77) 100 03/13/19 08:57 62 16 35 03/13/19 08:00 35 03/13/19 08:00 72 03/13/19 08:00 Mechanical Ventilator Mechanical Ventilator 03/13/19 08:00 98.8 65 17 111/51 (71) 100 03/13/19 07:18 71 16 35 03/13/19 07:00 71 16 120/52 (74) 100 03/13/19 06:00 63 16 108/56 (73) 100 03/13/19 05:00 67 16 131/59 (83) 100 03/13/19 04:51 73 16 35 35 03/13/19 04:00 35 03/13/19 04:00 66 03/13/19 04:00 Mechanical Ventilator Mechanical Ventilator 03/13/19 04:00 99.0 67 16 99/47 (64) 100 03/13/19 03:00 70 16 112/78 (89) 100 03/13/19 02:53 71 16 35 35 03/13/19 02:00 73 16 108/50 (69) 100 03/13/19 01:00 80 9 111/48 (69) 100 03/13/19 00:33 80 17 35 35 03/13/19 00:00 35 03/13/19 00:00 98.9 90 30 163/83 (109) 100 03/13/19 00:00 69 03/13/19 00:00 Mechanical Ventilator Mechanical Ventilator 03/12/19 23:00 67 16 106/58 (74) 100 03/12/19 22:42 62 16 35 35 03/12/19 22:00 66 15 107/46 (66) 100 03/12/19 21:18 64 16 35 35 03/12/19 21:00 66 17 101/51 (68) 100 03/12/19 20:00 99.1 63 16 116/57 (76) 100 03/12/19 20:00 35 03/12/19 20:00 Mechanical Ventilator Mechanical Ventilator 03/12/19 20:00 61 03/12/19 19:02 71 16 35 35 03/12/19 19:00 75 16 105/68 (80) 100 03/12/19 18:00 72 15 102/55 (71) 100 03/12/19 17:02 74 17 35 03/12/19 17:00 70 18 100/52 (68) 100 03/12/19 16:00 Mechanical Ventilator Mechanical Ventilator 03/12/19 16:00 40 03/12/19 16:00 78 03/12/19 16:00 99.0 75 16 102/54 (70) 100 03/12/19 15:00 74 18 108/55 (72) 100 03/12/19 14:44 71 18 35 Height (Feet): 5 Height (Inches): 8.00 Weight (Pounds): 185 Microbiology Date/Time Source Procedure Growth Status 03/11/19 17:00 Indwelling Cath Urine Culture - Preliminary Gram Negative Víctor Resulted Laboratory Tests Test 03/13/19 04:30 White Blood Count 10.7 K/UL (4.8-10.8) Red Blood Count 2.69 M/UL (4.20-5.40) L Hemoglobin 8.9 G/DL (12.0-16.0) L Hematocrit 27.0 % (37.0-47.0) L Mean Corpuscular Volume 100 FL (80-99) H Mean Corpuscular Hemoglobin 33.3 PG (27.0-31.0) H Mean Corpuscular Hemoglobin Concent 33.1 G/DL (32.0-36.0) Red Cell Distribution Width 12.4 % (11.6-14.8) Platelet Count 105 K/UL (150-450) L Mean Platelet Volume 11.2 FL (6.5-10.1) H Neutrophils (%) (Auto) 78.9 % (45.0-75.0) H Lymphocytes (%) (Auto) 14.6 % (20.0-45.0) L Monocytes (%) (Auto) 4.7 % (1.0-10.0) Eosinophils (%) (Auto) 1.2 % (0.0-3.0) Basophils (%) (Auto) 0.6 % (0.0-2.0) Sodium Level 145 MMOL/L (136-145) Potassium Level 3.9 MMOL/L (3.5-5.1) Chloride Level 110 MMOL/L (98-107) H Carbon Dioxide Level 30 MMOL/L (21-32) Anion Gap 5 mmol/L (5-15) Blood Urea Nitrogen 19 mg/dL (7-18) H Creatinine 0.7 MG/DL (0.55-1.30) Estimat Glomerular Filtration Rate mL/min (>60) Glucose Level 124 MG/DL (74-106) H Calcium Level 8.1 MG/DL (8.5-10.1) L Total Bilirubin 0.4 MG/DL (0.2-1.0) Aspartate Amino Transf (AST/SGOT) 26 U/L (15-37) Alanine Aminotransferase (ALT/SGPT) 11 U/L (12-78) L Alkaline Phosphatase 71 U/L (46-116) Total Protein 6.1 G/DL (6.4-8.2) L Albumin 1.6 G/DL (3.4-5.0) L Globulin 4.5 g/dL Albumin/Globulin Ratio 0.4 (1.0-2.7) L Current Medications Medications (Trade) Dose Ordered Sig/Singh Route PRN Reason Start Time Stop Time Status Last Admin Dose Admin Acetaminophen (Tylenol) 650 mg Q4H PRN GT Mild Pain/Temp > 100.5 03/09/19 20:30 04/08/19 20:29 03/12/19 08:49 Chlorhexidine Gluconate (Azra-Hex 2%) 1 applic DAILY@2000 TOPIC 03/10/19 20:00 04/09/19 19:59 03/12/19 19:46 Dextrose (Dextrose 50%) 25 ml Q30M PRN IV Hypoglycemia 03/09/19 21:00 04/08/19 20:59 Dextrose (Dextrose 50%) 50 ml Q30M PRN IV Hypoglycemia 03/09/19 21:00 04/08/19 20:59 Dextrose/ Electrolytes 1,000 ml @ 50 mls/hr Q20H IV 03/12/19 14:53 04/09/19 14:52 03/13/19 00:45 Fentanyl Citrate 1000 mcg/Sodium Chloride 100 ml @ 0 mls/hr Q24H IV 03/09/19 20:53 03/16/19 20:52 03/11/19 21:47 Insulin Aspart (NovoLOG) EVERY 6 HOURS SUBQ 03/10/19 00:00 04/09/19 00:00 03/13/19 11:31 Lorazepam (Ativan 2mg/ml 1ml) 0.5 mg Q4H PRN IV For Anxiety 03/12/19 20:45 03/19/19 20:44 03/13/19 00:17 Meropenem 1 gm/ Sodium Chloride 55 ml @ 110 mls/hr Q8HR IVPB 03/12/19 16:00 03/17/19 15:59 03/13/19 13:17 Norepinephrine Bitartrate 8 mg/ Dextrose 250 ml @ 0 mls/hr Q24H IV 03/09/19 21:00 04/08/19 20:59 03/11/19 23:19 Pantoprazole (Protonix) 40 mg DAILY IVP 03/10/19 09:00 04/09/19 08:59 03/13/19 08:17 Phenytoin (Dilantin) 125 mg Q12HR GT 03/09/19 21:00 04/08/19 20:59 03/13/19 08:17 Vancomycin HCl (Vanco rx to dose) 1 ea DAILY PRN MISC Per rx protocol 03/09/19 20:30 04/08/19 20:29 Vancomycin HCl 750 mg/Sodium Chloride 275 ml @ 183.333 mls/hr Q12H IVPB 03/11/19 17:00 03/16/19 16:59 03/13/19 05:03 Prashanth Osborne MD March 13, 2019 14:45
--- NOTE | 2019-03-13 14:47 | Nephrology Progress Note ---
Assessment/Plan Assessment 1) Hypernatremia is improving 2) coag + staph bacteremia ? source 3) S/P respiratory failure on the Vent Plan: Continue D5w at 50cc/hr IV ATB Subjective Subjective She is still on the vent, NA is 145, WBC is down to 10.5 Objective Objective Last 24 Hour Vital Signs Date Time Temp Pulse Resp B/P (MAP) Pulse Ox O2 Delivery O2 Flow Rate FiO2 03/13/19 14:00 64 16 92/46 (61) 96 03/13/19 13:00 69 16 35 03/13/19 13:00 99.0 70 17 109/49 (69) 100 03/13/19 12:00 66 16 106/49 (68) 100 03/13/19 12:00 35 03/13/19 12:00 66 03/13/19 12:00 Mechanical Ventilator Mechanical Ventilator 03/13/19 11:00 66 16 104/63 (77) 100 03/13/19 10:39 70 17 35 03/13/19 10:00 62 16 98/48 (65) 100 03/13/19 09:00 69 16 125/54 (77) 100 03/13/19 08:57 62 16 35 03/13/19 08:00 35 03/13/19 08:00 72 03/13/19 08:00 Mechanical Ventilator Mechanical Ventilator 03/13/19 08:00 98.8 65 17 111/51 (71) 100 03/13/19 07:18 71 16 35 03/13/19 07:00 71 16 120/52 (74) 100 03/13/19 06:00 63 16 108/56 (73) 100 03/13/19 05:00 67 16 131/59 (83) 100 03/13/19 04:51 73 16 35 35 03/13/19 04:00 35 03/13/19 04:00 66 03/13/19 04:00 Mechanical Ventilator Mechanical Ventilator 03/13/19 04:00 99.0 67 16 99/47 (64) 100 03/13/19 03:00 70 16 112/78 (89) 100 03/13/19 02:53 71 16 35 35 03/13/19 02:00 73 16 108/50 (69) 100 03/13/19 01:00 80 9 111/48 (69) 100 03/13/19 00:33 80 17 35 35 5/18/19 00:00 35 03/13/19 00:00 98.9 90 30 163/83 (109) 100 03/13/19 00:00 69 03/13/19 00:00 Mechanical Ventilator Mechanical Ventilator 03/12/19 23:00 67 16 106/58 (74) 100 03/12/19 22:42 62 16 35 35 03/12/19 22:00 66 15 107/46 (66) 100 03/12/19 21:18 64 16 35 35 03/12/19 21:00 66 17 101/51 (68) 100 03/12/19 20:00 99.1 63 16 116/57 (76) 100 03/12/19 20:00 35 03/12/19 20:00 Mechanical Ventilator Mechanical Ventilator 03/12/19 20:00 61 03/12/19 19:02 71 16 35 35 03/12/19 19:00 75 16 105/68 (80) 100 03/12/19 18:00 72 15 102/55 (71) 100 03/12/19 17:02 74 17 35 03/12/19 17:00 70 18 100/52 (68) 100 03/12/19 16:00 Mechanical Ventilator Mechanical Ventilator 03/12/19 16:00 40 03/12/19 16:00 78 03/12/19 16:00 99.0 75 16 102/54 (70) 100 03/12/19 15:00 74 18 108/55 (72) 100 Intake and Output 03/12/19 03/13/19 18:59 06:59 Intake Total 120 ml 1048.333 ml Output Total 650 ml 590 ml Balance -530 ml 458.333 ml Free Water 90 ml IV Total 838.333 ml Tube Feeding 120 ml 120 ml Output Urine Total 650 ml 590 ml # Bowel Movements 3 1 Laboratory Tests 03/13/19 04:30: White Blood Count 10.7, Red Blood Count 2.69L, Hemoglobin 8.9L, Hematocrit 27.0L , Mean Corpuscular Volume 100H, Mean Corpuscular Hemoglobin 33.3H, Mean Corpuscular Hemoglobin Concent 33.1, Red Cell Distribution Width 12.4, Platelet Count 105L, Mean Platelet Volume 11.2H, Neutrophils (%) (Auto) 78.9H, Lymphocytes (%) (Auto) 14.6L, Monocytes (%) (Auto) 4.7, Eosinophils (%) (Auto) 1.2, Basophils (%) (Auto) 0.6, Sodium Level 145, Potassium Level 3.9, Chloride Level 110H, Carbon Dioxide Level 30, Anion Gap 5, Blood Urea Nitrogen 19H, Creatinine 0.7, Estimat Glomerular Filtration Rate , Glucose Level 124H, Calcium Level 8.1L, Total Bilirubin 0.4, Aspartate Amino Transf (AST/SGOT) 26, Alanine Aminotransferase (ALT/SGPT) 11L, Alkaline Phosphatase 71, Total Protein 6.1L, Albumin 1.6L, Globulin 4.5, Albumin/Globulin Ratio 0.4L Height (Feet): 5 Height (Inches): 8.00 Weight (Pounds): 185 General Appearance: WD/WN, other - on the vent EENT: PERRL/EOMI Neck: non-tender, normal alignment Cardiovascular: normal rate, regular rhythm Respiratory/Chest: lungs clear, decreased breath sounds, rhonchi - bilaterally Abdomen: normal bowel sounds, non tender Neurologic: unresponsive Ulisses Tello MD March 13, 2019 14:47
[2019-03-13] MEDS: Dyna-Hex 2% Top Sol 2oz TOPIC SCH (20:40)
--- NOTE | 2019-03-13 20:46 | Pulmonolgy Critical Care Note ---
Critical Care - Asmt/Plan Assessment/Plan: 1. Acute respiratory failure. 2. Severe dehydration with shock. 3. Severe hypernatremia. 4. Multi-infarct dementia. 5. Possible acute myocardial infarction. 6. History of heart failure. 7. History of atrial fibrillation. 8. Gastric tube with dysphagia. 9. History of chronic obstructive pulmonary disease. 10. History of seizures with therapeutic Dilantin level. 11. History of hypertension. 12. Hyperlipidemia. 13. Diabetes. 14. 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0 70 17 109/49 (69) 100 03/13/19 12:00 66 16 106/49 (68) 100 03/13/19 12:00 35 03/13/19 12:00 66 03/13/19 12:00 Mechanical Ventilator Mechanical Ventilator 03/13/19 11:00 66 16 104/63 (77) 100 03/13/19 10:39 70 17 35 03/13/19 10:00 62 16 98/48 (65) 100 03/13/19 09:00 69 16 125/54 (77) 100 03/13/19 08:57 62 16 35 03/13/19 08:00 35 03/13/19 08:00 72 03/13/19 08:00 Mechanical Ventilator Mechanical Ventilator 03/13/19 08:00 98.8 65 17 111/51 (71) 100 03/13/19 07:18 71 16 35 03/13/19 07:00 71 16 120/52 (74) 100 03/13/19 06:00 63 16 108/56 (73) 100 03/13/19 05:00 67 16 131/59 (83) 100 03/13/19 04:51 73 16 35 35 03/13/19 04:00 35 03/13/19 04:00 66 03/13/19 04:00 Mechanical Ventilator Mechanical Ventilator 03/13/19 04:00 99.0 67 16 99/47 (64) 100 03/13/19 03:00 70 16 112/78 (89) 100 03/13/19 02:53 71 16 35 35 03/13/19 02:00 73 16 108/50 (69) 100 03/13/19 01:00 80 9 111/48 (69) 100 03/13/19 00:33 80 17 35 35 03/13/19 00:00 35 03/13/19 00:00 98.9 90 30 163/83 (109) 100 03/13/19 00:00 69 03/13/19 00:00 Mechanical Ventilator Mechanical Ventilator 03/12/19 23:00 67 16 106/58 (74) 100 03/12/19 22:42 62 16 35 35 03/12/19 22:00 66 15 107/46 (66) 100 03/12/19 21:18 64 16 35 35 03/12/19 21:00 66 17 101/51 (68) 100 Status: somnolent, obtunded Condition: critical Lungs: rhonchi Heart: HR/BP stable Abdomen: soft, non-tender Extremities: edema Decubiti: location Micro: Microbiology Date/Time Source Procedure Growth Status 03/11/19 17:00 Indwelling Cath Urine Culture - Preliminary Gram Negative Víctor Resulted Accucheck: 112 Critical Care - Subjective ROS Limited/Unobtainable: Yes Condition: critical FI02: 35 Vent Support Breath Rate: 16 Vent Support Mode: AC Vent Tidal Volume: 500 Sputum Amount: Small PEEP: 5.0 PIP: 26 Tube Feeding Amount: 40 I&O: Intake and Output 03/12/19 03/13/19 19:00 07:00 Intake Total 170 ml 1140.000 ml Output Total 640 ml 600 ml Balance -470 ml 540.000 ml Free Water 90 ml IV Total 50 ml 930.000 ml Tube Feeding 120 ml 120 ml Output Urine Total 640 ml 600 ml # Bowel Movements 3 1 Subjective: minimally arousable does not follow comamnds failed weaning no cp nv or bleeding toelrating tf no pressors ET-Tube: 7.5 ET Position: 22 Nia Rosa DO March 13, 2019 20:46
[2019-03-13] MEDS ORDERED: Vancomycin 750mg/NS 275ml IVPB SCH ×2 (22:00)
[2019-03-14] VITALS (24 sets, daily range): BP systolic 92–125; BP diastolic 31–89
[2019-03-14] MEDS: NovoLOG Insulin Flexpen SUBQ SCH ×4 (00:15→17:20)
--- NOTE | 2019-03-14 01:45 | Consultation ---
DATE OF CONSULTATION: 03/13/2019 INFECTIOUS DISEASE CONSULTATION CONSULTING PHYSICIAN: Prashanth Osborne M.D. REFERRING PHYSICIAN: Fernando Franks M.D. REASON FOR CONSULTATION: Multiple infections including sepsis, shock, gram-negative urinary tract infection, Providencia pneumonia, and coag-negative Staph bacteremia. CHIEF COMPLAINT: The patient's chief complaint coming to the hospital is respiratory distress. HPI: This is an 88-year-old female, who is currently in the ICU, who came in to [facility] with respiratory distress requiring a vent for respiratory failure. She is currently in the ICU. She was in septic shock on pressors, however, currently is off pressors. The patient has a Providencia pneumonia, gram-negative UTI, coag-negative Staph bacteremia. Infectious Disease consult requested. The patient is placed on meropenem, vancomycin yesterday. Case discussed with pharmacy and Dr. Franks. Data was reviewed. Cultures and imaging reviewed. REVIEW OF SYSTEMS: CONSTITUTIONAL: The patient cannot give review of systems. She has a Ferguson. She is currently off pressors. She did come in with presence of respiratory failure, on a vent. HEAD AND NECK: She is orally intubated. CARDIAC: No pressors currently. GASTROINTESTINAL: No nausea, vomiting, or diarrhea. GENITOURINARY: She has a Ferguson. PULMONARY: On a vent. Some secretions. SKIN: No new rash. EXTREMITY: No extremity pain. NEUROLOGIC: No seizures. The patient has a history of decubitus. Her wounds were reviewed. PAST MEDICAL HISTORY: Includes the following. The patient has a past history of heart failure, atrial fibrillation, cardiomegaly, gastrostomy tube, multi-infarct dementia, COPD, GERD, seizures, hypertension, hyperlipidemia, type 2 diabetes, dysphagia, chronic kidney disease, history of CVA, coronary artery disease, respiratory failure in the past, pressure ulcers, myocardial infarction, CAD, nephritis, and pneumonia. ALLERGIES: Include penicillin and sulfa. She tolerates meropenem. SOCIAL HISTORY: Negative for smoking, alcohol, or drug abuse. FAMILY HISTORY: Noncontributory per the records. MEDICATIONS: Upon reviewing the MAR, she is on following medications. She is on lorazepam, meropenem, vancomycin, chlorhexidine, pantoprazole, insulin, phenytoin. She is on norepinephrine. She is on fentanyl, vancomycin, and meropenem. Outside medications were noted and reconciliated. PHYSICAL EXAMINATION: VITAL SIGNS: Temperature 99.0, pulse rate 64, respiratory rate 16, saturation 96%, blood pressure 92/46, FiO2 35%, temperature max is 101.3, pulse rate has been as high as 70s, has respiratory failure, on a vent. Her respiratory rate has been as high as 30, requiring mechanical ventilation. Currently, she is off pressors. GENERAL EXAM: She is lethargic, weak. HEAD AND NECK: Orally intubated. Eye exam, no icterus. Normocephalic. No JVD. HEART: Regular. No obvious gallop or murmur. No friction rub. ABDOMEN: Soft. Positive bowel sounds. LUNGS: Bilateral rhonchi, rales, or crackles. SKIN: No rash. Decubitus was reviewed, not acutely infected, sacral looks like surface. MUSCULOSKELETAL: No effusion. Legs are without cellulitis. PERIPHERAL VASCULAR: No cyanosis or gangrene. GENITOURINARY: She has a Ferguson. Urine is clear. LINES SITES: Without phlebitis. NEUROLOGIC: Generalized weakness and poorly responsive. . LABORATORY DATA: As follows, creatinine 0.7, sodium is high as 151. Currently, sodium 145 and creatinine 0.7. White count 10.7, hemoglobin 8.9. White count 10.0 and hemoglobin 8.9. White count has been as high as 12.1. Urinalysis had 2+ leukocyte esterase. Urine culture greater than 100,000 gram-negative rods. Urine culture with Providencia. Blood cultures with coagulase-negative staph. Followup blood culture has been ordered. Chest x-ray imaging showed the following, it showed pulmonary vascular congestion. Initial chest x-rays showed no acute findings. Followup chest x-ray showed questionable infiltrates. Cultures again, urine culture, gram-negative rods. Sputum culture Providencia and blood cultures coagulase-negative Staph. ASSESSMENT/PLAN: 1. The patient came in with sepsis, shock, fevers, leukocytosis. The patient has Providencia pneumonia, gram-negative UTI, possible coagulase-negative staph bacteremia with 3/4 bottles positive. Echo did not mention vegetation. At this time, we will continue vancomycin and meropenem to cover the sepsis, shock, Providencia pneumonia, gram-negative urinary tract infection requiring Staph bacteremia. Check surveillance blood cultures requiring a Staph bacteremia. Continue vancomycin and meropenem for now. Check followup laboratories, cultures, chest x-ray. Of note, I would favor meropenem to treat the Providencia pneumonia over Rocephin since this organism is also resistant to cefepime. I believe the carbapenems or meropenem will be more stable molecule, also the RUBA was better with ertapenem, so I would go with meropenem for this. 2. Respiratory failure, on vent. 3. Diabetes. 4. Hypertension. 5. Blood sugar and blood pressure treatment per primary for diabetes and hypertension. 6. Atrial fibrillation. 7. Heart failure. 8. G-tube. 9. Skin care protocol. 10. Cardiomegaly. 11. CAD and PR. 12. Hyperlipidemia. 13. Seizure disorder. 14. GERD. 15. History of CVA. 16. Allergic to penicillin and sulfa, tolerates meropenem. 17. Social history is negative. 18. Family history is noncontributory. 19. MAR is noted. 20. Case discussed with Dr. Franks. 21. Continue treatment per primary consultants. Prashanth Osborne M.D. DR: ALEXX JOB#: [id number] CC:
[2019-03-14] MEDS: Meropenem 1gm in NS 55ml IVPB SCH (05:50)
[2019-03-14 06:00] LABS: BASOPHILS % (AUTO) 0.8 % (0.0-2.0); HEMATOCRIT 28.8 % (37.0-47.0); HEMOGLOBIN 9.5 G/DL (12.0-16.0); LYMPHOCYTES % (AUTO) 11.6 % (20.0-45.0); MEAN CORPUSCULAR VOLUME 85 FL (80-99); NEUTROPHILS % (AUTO) 79.6 % (45.0-75.0); PLATELET COUNT 237 K/UL (150-450); RED BLOOD COUNT 3.37 M/UL (4.20-5.40); RED CELL DISTRIBUTION WIDTH 15.2 % (11.6-14.8); WHITE BLOOD COUNT 14.4 K/UL (4.8-10.8)
[2019-03-14 06:40] LABS: ALANINE AMINOTRANSFERASE 37 U/L (12-78); ALBUMIN 1.7 G/DL (3.4-5.0); ALBUMIN/GLOBULIN RATIO 0.4 (1.0-2.7); ALKALINE PHOSPHATASE 158 U/L (46-116); ANION GAP 13 mmol/L (5-15); ASPARTATE AMINO TRANSFERASE 21 U/L (15-37); BILIRUBIN,TOTAL 1.4 MG/DL (0.2-1.0); BLOOD UREA NITROGEN 56 mg/dL (7-18); CARBON DIOXIDE 16 MMOL/L (21-32); CHLORIDE 107 MMOL/L (98-107); CREATININE 3.5 MG/DL (0.55-1.30); POTASSIUM 4.6 MMOL/L (3.5-5.1); SODIUM 136 MMOL/L (136-145)
[2019-03-14 07:03] LABS: BILIRUBIN,DIRECT 0.7 MG/DL (0.0-0.3)
[2019-03-14] MEDS: Phenytoin Susp 100mg/4ml GT SCH ×2 (07:58→20:43)
[2019-03-14] MEDS: Pantoprazole Inj IVP SCH (07:58)
--- NOTE | 2019-03-14 11:38 | Cardiology Progress Note ---
Assessment/Plan Assessment/Plan 1. Hypernatremia free water deficit 2. Likely demand ischemia 3. Metabolic alkalosis. 4. altered mentation secondary to above. 5. Anemia, mild. 6. History of seizures. 7. Diabetes history. 8. Hypertension history. 9. hs of diastolic failure 10.New LV systolic dysfunction ? 11. bactermia na low however i ssupect the labs form today may be erroneous trop min abn still bp is ok remain on the vent mod secretion per staff 03/10 echo report noted some echo views were reviewed may not have as bad an lv function as reported atlhgouh the images are not typical stress induced cm may be in the differential on iv abx continue vent support is getting free water off diurtics and off bp meds not tachy failed to wean hemodynamic are better tele monitor sinus now bactermic on iv abx supect erroneous labs will reorder Subjective ROS Limited/Unobtainable: Yes Objective Last 24 Hour Vital Signs Date Time Temp Pulse Resp B/P (MAP) Pulse Ox O2 Delivery O2 Flow Rate FiO2 03/14/19 11:08 66 16 35 03/14/19 11:00 66 16 108/44 (65) 100 03/14/19 10:00 65 15 107/31 (56) 99 03/14/19 09:00 67 16 115/43 (67) 98 03/14/19 08:39 68 17 35 03/14/19 08:00 Mechanical Ventilator Mechanical Ventilator 03/14/19 08:00 70 03/14/19 08:00 35 03/14/19 08:00 98.6 68 16 98/45 (62) 100 03/14/19 07:00 68 16 111/47 (68) 100 03/14/19 06:52 60 16 35 03/14/19 06:00 65 16 104/42 (62) 100 03/14/19 06:00 66 8 92/51 (65) 100 03/14/19 05:04 66 17 35 03/14/19 05:00 66 8 92/51 (65) 100 03/14/19 04:00 35 03/14/19 04:00 87 03/14/19 04:00 Mechanical Ventilator Mechanical Ventilator 03/14/19 04:00 97.5 63 16 95/32 (53) 99 03/14/19 03:12 68 16 35 03/14/19 03:00 68 16 123/76 (92) 100 03/14/19 02:00 66 16 92/35 (54) 100 03/14/19 02:00 Mechanical Ventilator Mechanical Ventilator 03/14/19 01:36 68 16 35 03/14/19 01:00 66 16 92/35 (54) 100 03/14/19 00:00 71 03/14/19 00:00 Mechanical Ventilator Mechanical Ventilator 03/14/19 00:00 35 03/14/19 00:00 97.8 78 20 106/89 (95) 100 03/13/19 23:00 73 20 111/58 (75) 100 03/13/19 22:46 71 18 35 03/13/19 22:00 68 18 93/75 (81) 100 03/13/19 21:14 70 16 35 03/13/19 21:00 104/62 03/13/19 21:00 71 15 104/62 (76) 100 03/13/19 20:53 18 03/13/19 20:00 Mechanical Ventilator Mechanical Ventilator 03/13/19 20:00 35 03/13/19 20:00 69 03/13/19 20:00 98.5 66 15 112/57 (75) 100 03/13/19 19:00 65 17 102/50 (67) 100 03/13/19 18:48 62 16 35 03/13/19 18:00 68 16 97/47 (64) 100 03/13/19 17:22 84 16 35 03/13/19 17:00 98.2 72 16 107/51 (69) 100 03/13/19 16:00 35 03/13/19 16:00 Mechanical Ventilator Mechanical Ventilator 03/13/19 16:00 72 03/13/19 16:00 70 16 109/49 (69) 100 03/13/19 15:27 70 16 35 03/13/19 15:00 65 15 96/72 (80) 100 03/13/19 14:00 64 16 92/46 (61) 96 03/13/19 13:00 69 16 35 03/13/19 13:00 99.0 70 17 109/49 (69) 100 03/13/19 12:00 66 16 106/49 (68) 100 03/13/19 12:00 35 03/13/19 12:00 66 03/13/19 12:00 Mechanical Ventilator Mechanical Ventilator General Appearance: on vent, patient on isolation Neck: supple Cardiovascular: normal rate Respiratory/Chest: lungs clear Abdomen: normal bowel sounds, non tender, soft Extremities: no swelling Intake and Output 03/13/19 03/14/19 19:00 07:00 Intake Total 1110 ml 1555.000 ml Output Total 590 ml 550 ml Balance 520 ml 1005.000 ml Free Water 110 ml 50 ml IV Total 710 ml 935.000 ml Tube Feeding 290 ml 520 ml Blood Product 50 ml Output Urine Total 590 ml 550 ml Laboratory Tests Test 03/13/19 16:35 03/14/19 04:30 03/14/19 08:48 Vancomycin Level Trough 21.7 ug/mL (5.0-12.0) H White Blood Count 14.4 K/UL (4.8-10.8) H Red Blood Count 3.37 M/UL (4.20-5.40) L Hemoglobin 9.5 G/DL (12.0-16.0) L Hematocrit 28.8 % (37.0-47.0) L Mean Corpuscular Volume 85 FL (80-99) # Mean Corpuscular Hemoglobin 28.2 PG (27.0-31.0) Mean Corpuscular Hemoglobin Concent 33.1 G/DL (32.0-36.0) Red Cell Distribution Width 15.2 % (11.6-14.8) H Platelet Count 237 K/UL (150-450) # Mean Platelet Volume 7.7 FL (6.5-10.1) Neutrophils (%) (Auto) 79.6 % (45.0-75.0) H Lymphocytes (%) (Auto) 11.6 % (20.0-45.0) L Monocytes (%) (Auto) 5.0 % (1.0-10.0) Eosinophils (%) (Auto) 3.0 % (0.0-3.0) Basophils (%) (Auto) 0.8 % (0.0-2.0) Sodium Level 136 MMOL/L (136-145) Potassium Level 4.6 MMOL/L (3.5-5.1) Chloride Level 107 MMOL/L (98-107) Carbon Dioxide Level 16 MMOL/L (21-32) L Anion Gap 13 mmol/L (5-15) Blood Urea Nitrogen 56 mg/dL (7-18) H Creatinine 3.5 MG/DL (0.55-1.30) #H Estimat Glomerular Filtration Rate mL/min (>60) Glucose Level 89 MG/DL (74-106) Calcium Level 8.0 MG/DL (8.5-10.1) L Total Bilirubin 1.4 MG/DL (0.2-1.0) H Direct Bilirubin 0.7 MG/DL (0.0-0.3) H Aspartate Amino Transf (AST/SGOT) 21 U/L (15-37) Alanine Aminotransferase (ALT/SGPT) 37 U/L (12-78) Alkaline Phosphatase 158 U/L (46-116) H Total Protein 6.1 G/DL (6.4-8.2) L Albumin 1.7 G/DL (3.4-5.0) L Globulin 4.4 g/dL Albumin/Globulin Ratio 0.4 (1.0-2.7) L Arterial Blood pH 7.464 (7.350-7.450) Arterial Blood Partial Pressure CO2 34.6 mmHg (35.0-45.0) L Arterial Blood Partial Pressure O2 110.1 mmHg (75.0-100.0) H Arterial Blood HCO3 24.3 mmol/L (22.0-26.0) Arterial Blood Oxygen Saturation 97.7 % (95-100) Arterial Blood Base Excess 0.7 (-2-2) Jose Luis Test Positive Microbiology Date/Time Source Procedure Growth Status 03/11/19 17:00 Indwelling Cath Urine Culture - Final Escherichia Coli - Esbl Complete Allen Bliss MD March 14, 2019 11:38
[2019-03-14 13:13] LABS: BASOPHILS % (AUTO) 0.4 % (0.0-2.0); EOSINOPHILS % (AUTO) 1.6 % (0.0-3.0); HEMATOCRIT 26.4 % (37.0-47.0); HEMOGLOBIN 8.7 G/DL (12.0-16.0); LYMPHOCYTES % (AUTO) 24.4 % (20.0-45.0); MEAN CORPUSCULAR VOLUME 100 FL (80-99); MONOCYTES % (AUTO) 6.4 % (1.0-10.0); NEUTROPHILS % (AUTO) 67.2 % (45.0-75.0); PLATELET COUNT 118 K/UL (150-450); RED BLOOD COUNT 2.65 M/UL (4.20-5.40); RED CELL DISTRIBUTION WIDTH 12.8 % (11.6-14.8); WHITE BLOOD COUNT 8.5 K/UL (4.8-10.8)
[2019-03-14 13:24] LABS: ALANINE AMINOTRANSFERASE 10 U/L (12-78); ALBUMIN 1.5 G/DL (3.4-5.0); ALBUMIN/GLOBULIN RATIO 0.4 (1.0-2.7); ALKALINE PHOSPHATASE 74 U/L (46-116); ANION GAP 7 mmol/L (5-15); ASPARTATE AMINO TRANSFERASE 28 U/L (15-37); BILIRUBIN,TOTAL 0.2 MG/DL (0.2-1.0); BLOOD UREA NITROGEN 15 mg/dL (7-18); CALCIUM 7.7 MG/DL (8.5-10.1); CARBON DIOXIDE 27 MMOL/L (21-32); CHLORIDE 108 MMOL/L (98-107); CREATININE 0.6 MG/DL (0.55-1.30); POTASSIUM 3.9 MMOL/L (3.5-5.1); SODIUM 142 MMOL/L (136-145)
--- NOTE | 2019-03-14 14:51 | Nephrology Progress Note ---
Assessment/Plan Assessment 1) Hypernatremia ghas resolved 2) coag + staph bacteremia ? source 3) S/P respiratory failure on the Vent Plan: Continue D5w at 50cc/hr IV ATB Subjective Subjective She is still on the vent, NA is 142, failed weaning again Objective Objective Last 24 Hour Vital Signs Date Time Temp Pulse Resp B/P (MAP) Pulse Ox O2 Delivery O2 Flow Rate FiO2 03/14/19 14:00 69 16 110/44 (66) 96 03/14/19 13:00 71 18 106/42 (63) 100 03/14/19 12:38 65 16 35 03/14/19 12:00 35 03/14/19 12:00 65 03/14/19 12:00 98.5 65 16 96/47 (63) 100 03/14/19 12:00 Mechanical Ventilator Mechanical Ventilator 03/14/19 11:08 66 16 35 03/14/19 11:00 66 16 108/44 (65) 100 03/14/19 10:00 65 15 107/31 (56) 99 03/14/19 09:00 67 16 115/43 (67) 98 03/14/19 08:39 68 17 35 03/14/19 08:00 Mechanical Ventilator Mechanical Ventilator 03/14/19 08:00 70 03/14/19 08:00 35 03/14/19 08:00 98.6 68 16 98/45 (62) 100 03/14/19 07:00 68 16 111/47 (68) 100 03/14/19 06:52 60 16 35 03/14/19 06:00 65 16 104/42 (62) 100 03/14/19 06:00 66 8 92/51 (65) 100 03/14/19 05:04 66 17 35 03/14/19 05:00 66 8 92/51 (65) 100 03/14/19 04:00 35 03/14/19 04:00 87 03/14/19 04:00 Mechanical Ventilator Mechanical Ventilator 03/14/19 04:00 97.5 63 16 95/32 (53) 99 03/14/19 03:12 68 16 35 03/14/19 03:00 68 16 123/76 (92) 100 03/14/19 02:00 66 16 92/35 (54) 100 03/14/19 02:00 Mechanical Ventilator Mechanical Ventilator 03/14/19 01:36 68 16 35 03/14/19 01:00 66 16 92/35 (54) 100 03/14/19 00:00 71 03/14/19 00:00 Mechanical Ventilator Mechanical Ventilator 03/14/19 00:00 35 03/14/19 00:00 97.8 78 20 106/89 (95) 100 03/13/19 23:00 73 20 111/58 (75) 100 03/13/19 22:46 71 18 35 03/13/19 22:00 68 18 93/75 (81) 100 03/13/19 21:14 70 16 35 03/13/19 21:00 104/62 03/13/19 21:00 71 15 104/62 (76) 100 03/13/19 20:53 18 03/13/19 20:00 Mechanical Ventilator Mechanical Ventilator 03/13/19 20:00 35 03/13/19 20:00 69 03/13/19 20:00 98.5 66 15 112/57 (75) 100 03/13/19 19:00 65 17 102/50 (67) 100 03/13/19 18:48 62 16 35 03/13/19 18:00 68 16 97/47 (64) 100 03/13/19 17:22 84 16 35 03/13/19 17:00 98.2 72 16 107/51 (69) 100 03/13/19 16:00 35 03/13/19 16:00 Mechanical Ventilator Mechanical Ventilator 03/13/19 16:00 72 03/13/19 16:00 70 16 109/49 (69) 100 03/13/19 15:27 70 16 35 03/13/19 15:00 65 15 96/72 (80) 100 Intake and Output 03/13/19 03/14/19 18:59 06:59 Intake Total 1171.667 ml 1645.000 ml Output Total 590 ml 600 ml Balance 581.667 ml 1045.000 ml Free Water 110 ml 50 ml IV Total 801.667 ml 985.000 ml Tube Feeding 260 ml 560 ml Blood Product 50 ml Output Urine Total 590 ml 600 ml Laboratory Tests 03/13/19 16:35: Vancomycin Level Trough 21.7H 03/14/19 04:30: White Blood Count 14.4H, Red Blood Count 3.37L, Hemoglobin 9.5L, Hematocrit 28.8L, Mean Corpuscular Volume 85#, Mean Corpuscular Hemoglobin 28.2, Mean Corpuscular Hemoglobin Concent 33.1, Red Cell Distribution Width 15.2H, Platelet Count 237#, Mean Platelet Volume 7.7, Neutrophils (%) (Auto) 79.6H, Lymphocytes (%) (Auto) 11.6L, Monocytes (%) (Auto) 5.0, Eosinophils (%) (Auto) 3.0, Basophils (%) (Auto) 0.8, Sodium Level 136, Potassium Level 4.6, Chloride Level 107, Carbon Dioxide Level 16L, Anion Gap 13, Blood Urea Nitrogen 56H, Creatinine 3.5#H, Estimat Glomerular Filtration Rate , Glucose Level 89, Calcium Level 8.0L, Total Bilirubin 1.4H, Direct Bilirubin 0.7H, Aspartate Amino Transf (AST/SGOT) 21, Alanine Aminotransferase (ALT/SGPT) 37, Alkaline Phosphatase 158H, Total Protein 6.1L, Albumin 1.7L, Globulin 4.4, Albumin/ Globulin Ratio 0.4L 03/14/19 08:48: Arterial Blood pH 7.464H, Arterial Blood Partial Pressure CO2 34.6L, Arterial Blood Partial Pressure O2 110.1H, Arterial Blood HCO3 24.3, Arterial Blood Oxygen Saturation 97.7, Arterial Blood Base Excess 0.7, Jose Luis Test Positive 03/14/19 12:50: White Blood Count 8.5, Red Blood Count 2.65L, Hemoglobin 8.7L, Hematocrit 26.4L , Mean Corpuscular Volume 100#H, Mean Corpuscular Hemoglobin 33.0H, Mean Corpuscular Hemoglobin Concent 33.0, Red Cell Distribution Width 12.8, Platelet Count 118#L, Mean Platelet Volume 10.2H, Neutrophils (%) (Auto) 67.2, Lymphocytes (%) (Auto) 24.4, Monocytes (%) (Auto) 6.4, Eosinophils (%) (Auto) 1.6, Basophils (%) (Auto) 0.4, Sodium Level 142, Potassium Level 3.9, Chloride Level 108H, Carbon Dioxide Level 27, Anion Gap 7, Blood Urea Nitrogen 15, Creatinine 0.6#, Estimat Glomerular Filtration Rate , Glucose Level 158H, Calcium Level 7.7L, Total Bilirubin 0.2, Aspartate Amino Transf (AST/SGOT) 28, Alanine Aminotransferase (ALT/SGPT) 10L, Alkaline Phosphatase 74, Total Protein 5.4L, Albumin 1.5L, Globulin 3.9, Albumin/Globulin Ratio 0.4L Height (Feet): 5 Height (Inches): 8.00 Weight (Pounds): 170 General Appearance: WD/WN, lethargic, other - on the vent EENT: PERRL/EOMI Neck: non-tender Cardiovascular: normal rate, regular rhythm Respiratory/Chest: lungs clear Abdomen: non tender, soft Neurologic: no motor/sensory deficits Ulisses Tello MD March 14, 2019 14:51
[2019-03-14] MEDS: D5W w/KCl 20mEq 1,000 ML IV SCH (17:20)
--- NOTE | 2019-03-14 17:49 | Pulmonolgy Critical Care Note ---
Critical Care - Asmt/Plan Assessment/Plan: 1. Acute respiratory failure. 2. Severe dehydration with shock. 3. Severe hypernatremia. 4. Multi-infarct dementia. 5. Possible acute myocardial infarction. 6. History of heart failure. 7. History of atrial fibrillation. 8. Gastric tube with dysphagia. 9. History of chronic obstructive pulmonary disease. 10. History of seizures with therapeutic Dilantin level. 11. History of hypertension. 12. Hyperlipidemia. 13. Diabetes. 14. 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 Discussed with: nurses Critical Care - Objective Last 24 Hour Vital Signs Date Time Temp Pulse Resp B/P (MAP) Pulse Ox O2 Delivery O2 Flow Rate FiO2 03/14/19 17:14 77 26 35 03/14/19 15:27 64 17 35 03/14/19 15:26 64 17 Mechanical Ventilator 35 03/14/19 15:00 60 16 94/44 (61) 96 03/14/19 14:00 69 16 110/44 (66) 96 03/14/19 13:00 71 18 106/42 (63) 100 03/14/19 12:38 65 16 35 03/14/19 12:00 35 03/14/19 12:00 65 03/14/19 12:00 98.5 65 16 96/47 (63) 100 03/14/19 12:00 Mechanical Ventilator Mechanical Ventilator 03/14/19 11:08 66 16 35 03/14/19 11:00 66 16 108/44 (65) 100 03/14/19 10:00 65 15 107/31 (56) 99 03/14/19 09:00 67 16 115/43 (67) 98 03/14/19 08:39 68 17 35 03/14/19 08:00 Mechanical Ventilator Mechanical Ventilator 03/14/19 08:00 70 03/14/19 08:00 35 03/14/19 08:00 98.6 68 16 98/45 (62) 100 03/14/19 07:00 68 16 111/47 (68) 100 03/14/19 06:52 60 16 35 03/14/19 06:00 65 16 104/42 (62) 100 03/14/19 06:00 66 8 92/51 (65) 100 03/14/19 05:04 66 17 35 03/14/19 05:00 66 8 92/51 (65) 100 03/14/19 04:00 35 03/14/19 04:00 87 03/14/19 04:00 Mechanical Ventilator Mechanical Ventilator 03/14/19 04:00 97.5 63 16 95/32 (53) 99 03/14/19 03:12 68 16 35 03/14/19 03:00 68 16 123/76 (92) 100 03/14/19 02:00 66 16 92/35 (54) 100 03/14/19 02:00 Mechanical Ventilator Mechanical Ventilator 03/14/19 01:36 68 16 35 03/14/19 01:00 66 16 92/35 (54) 100 03/14/19 00:00 71 03/14/19 00:00 Mechanical Ventilator Mechanical Ventilator 03/14/19 00:00 35 03/14/19 00:00 97.8 78 20 106/89 (95) 100 03/13/19 23:00 73 20 111/58 (75) 100 03/13/19 22:46 71 18 35 03/13/19 22:00 68 18 93/75 (81) 100 03/13/19 21:14 70 16 35 03/13/19 21:00 104/62 03/13/19 21:00 71 15 104/62 (76) 100 03/13/19 20:53 18 03/13/19 20:00 Mechanical Ventilator Mechanical Ventilator 03/13/19 20:00 35 03/13/19 20:00 69 03/13/19 20:00 98.5 66 15 112/57 (75) 100 03/13/19 19:00 65 17 102/50 (67) 100 03/13/19 18:48 62 16 35 03/13/19 18:00 68 16 97/47 (64) 100 Status: obtunded Condition: critical Lungs: rhonchi Heart: HR/BP unstable Abdomen: soft, non-tender Extremities: edema Accucheck: 157 Critical Care - Subjective ROS Limited/Unobtainable: Yes Condition: critical EKG Rhythm: Sinus Rhythm FI02: 35 Vent Support Breath Rate: 16 Vent Support Mode: AC Vent Tidal Volume: 500 Sputum Amount: Moderate PEEP: 5.0 PIP: 29 Tube Feeding Amount: 50 I&O: Intake and Output 03/13/19 03/14/19 18:59 06:59 Intake Total 1171.667 ml 1645.000 ml Output Total 590 ml 600 ml Balance 581.667 ml 1045.000 ml Free Water 110 ml 50 ml IV Total 801.667 ml 985.000 ml Tube Feeding 260 ml 560 ml Blood Product 50 ml Output Urine Total 590 ml 600 ml Subjective: unresponsive on the vent does not follow commands failed weaning no cp nv or bleeding tolerating tf no pressors abg better today no new cxr CXR: no new cxr ET-Tube: 7.5 ET Position: 22 Labs: Current Medications Medications (Trade) Dose Ordered Sig/Singh Route PRN Reason Start Time Stop Time Status Last Admin Dose Admin Acetaminophen (Tylenol) 650 mg Q4H PRN GT Mild Pain/Temp > 100.5 03/09/19 20:30 04/08/19 20:29 03/12/19 08:49 Chlorhexidine Gluconate (Azra-Hex 2%) 1 applic DAILY@2000 TOPIC 03/10/19 20:00 04/09/19 19:59 03/13/19 20:40 Dextrose (Dextrose 50%) 25 ml Q30M PRN IV Hypoglycemia 03/09/19 21:00 04/08/19 20:59 Dextrose (Dextrose 50%) 50 ml Q30M PRN IV Hypoglycemia 03/09/19 21:00 04/08/19 20:59 Dextrose/ Electrolytes 1,000 ml @ 50 mls/hr Q20H IV 03/12/19 14:53 04/09/19 14:52 03/14/19 17:20 Fentanyl Citrate 1000 mcg/Sodium Chloride 100 ml @ 0 mls/hr Q24H IV 03/09/19 20:53 03/16/19 20:52 03/11/19 21:47 Insulin Aspart (NovoLOG) EVERY 6 HOURS SUBQ 03/10/19 00:00 04/09/19 00:00 03/14/19 17:20 Lorazepam (Ativan 2mg/ml 1ml) 0.5 mg Q4H PRN IV For Anxiety 03/12/19 20:45 03/19/19 20:44 03/13/19 23:38 Meropenem 500 mg/ Sodium Chloride 55 ml @ 110 mls/hr Q12HR@0600,1800 IVPB 03/14/19 18:00 03/19/19 17:59 03/14/19 17:20 Norepinephrine Bitartrate 8 mg/ Dextrose 250 ml @ 0 mls/hr Q24H IV 03/09/19 21:00 04/08/19 20:59 03/11/19 23:19 Pantoprazole (Protonix) 40 mg DAILY IVP 03/10/19 09:00 04/09/19 08:59 03/14/19 07:58 Phenytoin (Dilantin) 125 mg Q12HR GT 03/09/19 21:00 04/08/19 20:59 03/14/19 07:58 Vancomycin HCl (Vanco rx to dose) 1 ea DAILY PRN MISC Per rx protocol 03/09/19 20:30 04/08/19 20:29 Laboratory Tests Test 03/14/19 04:30 03/14/19 08:48 03/14/19 12:50 White Blood Count 14.4 K/UL (4.8-10.8) H 8.5 K/UL (4.8-10.8) Red Blood Count 3.37 M/UL (4.20-5.40) L 2.65 M/UL (4.20-5.40) L Hemoglobin 9.5 G/DL (12.0-16.0) L 8.7 G/DL (12.0-16.0) L Hematocrit 28.8 % (37.0-47.0) L 26.4 % (37.0-47.0) L Mean Corpuscular Volume 85 FL (80-99) # 100 FL (80-99) #H Mean Corpuscular Hemoglobin 28.2 PG (27.0-31.0) 33.0 PG (27.0-31.0) H Mean Corpuscular Hemoglobin Concent 33.1 G/DL (32.0-36.0) 33.0 G/DL (32.0-36.0) Red Cell Distribution Width 15.2 % (11.6-14.8) H 12.8 % (11.6-14.8) Platelet Count 237 K/UL (150-450) # 118 K/UL (150-450) #L Mean Platelet Volume 7.7 FL (6.5-10.1) 10.2 FL (6.5-10.1) H Neutrophils (%) (Auto) 79.6 % (45.0-75.0) H 67.2 % (45.0-75.0) Lymphocytes (%) (Auto) 11.6 % (20.0-45.0) L 24.4 % (20.0-45.0) Monocytes (%) (Auto) 5.0 % (1.0-10.0) 6.4 % (1.0-10.0) Eosinophils (%) (Auto) 3.0 % (0.0-3.0) 1.6 % (0.0-3.0) Basophils (%) (Auto) 0.8 % (0.0-2.0) 0.4 % (0.0-2.0) Sodium Level 136 MMOL/L (136-145) 142 MMOL/L (136-145) Potassium Level 4.6 MMOL/L (3.5-5.1) 3.9 MMOL/L (3.5-5.1) Chloride Level 107 MMOL/L (98-107) 108 MMOL/L (98-107) H Carbon Dioxide Level 16 MMOL/L (21-32) L 27 MMOL/L (21-32) Anion Gap 13 mmol/L (5-15) 7 mmol/L (5-15) Blood Urea Nitrogen 56 mg/dL (7-18) H 15 mg/dL (7-18) Creatinine 3.5 MG/DL (0.55-1.30) #H 0.6 MG/DL (0.55-1.30) # Estimat Glomerular Filtration Rate mL/min (>60) mL/min (>60) Glucose Level 89 MG/DL (74-106) 158 MG/DL (74-106) H Calcium Level 8.0 MG/DL (8.5-10.1) L 7.7 MG/DL (8.5-10.1) L Total Bilirubin 1.4 MG/DL (0.2-1.0) H 0.2 MG/DL (0.2-1.0) Direct Bilirubin 0.7 MG/DL (0.0-0.3) H Aspartate Amino Transf (AST/SGOT) 21 U/L (15-37) 28 U/L (15-37) Alanine Aminotransferase (ALT/SGPT) 37 U/L (12-78) 10 U/L (12-78) L Alkaline Phosphatase 158 U/L (46-116) H 74 U/L (46-116) Total Protein 6.1 G/DL (6.4-8.2) L 5.4 G/DL (6.4-8.2) L Albumin 1.7 G/DL (3.4-5.0) L 1.5 G/DL (3.4-5.0) L Globulin 4.4 g/dL 3.9 g/dL Albumin/Globulin Ratio 0.4 (1.0-2.7) L 0.4 (1.0-2.7) L Arterial Blood pH 7.464 (7.350-7.450) Arterial Blood Partial Pressure CO2 34.6 mmHg (35.0-45.0) L Arterial Blood Partial Pressure O2 110.1 mmHg (75.0-100.0) H Arterial Blood HCO3 24.3 mmol/L (22.0-26.0) Arterial Blood Oxygen Saturation 97.7 % (95-100) Arterial Blood Base Excess 0.7 (-2-2) Jose Luis Test Positive Nia Rosa DO March 14, 2019 17:49
[2019-03-14] MEDS ORDERED: Meropenem 500mg/NS 55ml IVPB SCH ×2 (18:00)
[2019-03-14] MEDS: Dyna-Hex 2% Top Sol 2oz TOPIC SCH (20:43)
[2019-03-14] MEDS ORDERED: LORazepam Inj 2mg/ml 1ml IV PRN (20:45)
[2019-03-14] MEDS ORDERED: Vancomycin 750mg/NS 275ml IVPB SCH ×2 (22:00)
--- NOTE | 2019-03-14 23:56 | Neurology Progress Note ---
Interim History Interim History ROS Limited/Unobtainable: Yes Complaints: AMS Events: Failed 2 vent trials Interim History Has recently been given Ativan for agitation, chewing on ETT, Objective Physical Exam Last Vital Signs Date Time Temp Pulse Resp B/P (MAP) Pulse Ox O2 Delivery O2 Flow Rate FiO2 03/14/19 23:00 78 23 125/38 (67) 95 03/14/19 20:00 98.5 03/14/19 17:14 35 03/14/19 16:00 Mechanical Ventilator Mechanical Ventilator 03/10/19 08:55 50.0 Laboratory Tests Test 03/14/19 04:30 03/14/19 08:48 03/14/19 12:50 03/14/19 20:20 White Blood Count 14.4 K/UL (4.8-10.8) H 8.5 K/UL (4.8-10.8) Red Blood Count 3.37 M/UL (4.20-5.40) L 2.65 M/UL (4.20-5.40) L Hemoglobin 9.5 G/DL (12.0-16.0) L 8.7 G/DL (12.0-16.0) L Hematocrit 28.8 % (37.0-47.0) L 26.4 % (37.0-47.0) L Mean Corpuscular Volume 85 FL (80-99) # 100 FL (80-99) #H Mean Corpuscular Hemoglobin 28.2 PG (27.0-31.0) 33.0 PG (27.0-31.0) H Mean Corpuscular Hemoglobin Concent 33.1 G/DL (32.0-36.0) 33.0 G/DL (32.0-36.0) Red Cell Distribution Width 15.2 % (11.6-14.8) H 12.8 % (11.6-14.8) Platelet Count 237 K/UL (150-450) # 118 K/UL (150-450) #L Mean Platelet Volume 7.7 FL (6.5-10.1) 10.2 FL (6.5-10.1) H Neutrophils (%) (Auto) 79.6 % (45.0-75.0) H 67.2 % (45.0-75.0) Lymphocytes (%) (Auto) 11.6 % (20.0-45.0) L 24.4 % (20.0-45.0) Monocytes (%) (Auto) 5.0 % (1.0-10.0) 6.4 % (1.0-10.0) Eosinophils (%) (Auto) 3.0 % (0.0-3.0) 1.6 % (0.0-3.0) Basophils (%) (Auto) 0.8 % (0.0-2.0) 0.4 % (0.0-2.0) Sodium Level 136 MMOL/L (136-145) 142 MMOL/L (136-145) Potassium Level 4.6 MMOL/L (3.5-5.1) 3.9 MMOL/L (3.5-5.1) Chloride Level 107 MMOL/L (98-107) 108 MMOL/L (98-107) H Carbon Dioxide Level 16 MMOL/L (21-32) L 27 MMOL/L (21-32) Anion Gap 13 mmol/L (5-15) 7 mmol/L (5-15) Blood Urea Nitrogen 56 mg/dL (7-18) H 15 mg/dL (7-18) Creatinine 3.5 MG/DL (0.55-1.30) #H 0.6 MG/DL (0.55-1.30) # Estimat Glomerular Filtration Rate mL/min (>60) mL/min (>60) Glucose Level 89 MG/DL (74-106) 158 MG/DL (74-106) H Calcium Level 8.0 MG/DL (8.5-10.1) L 7.7 MG/DL (8.5-10.1) L Total Bilirubin 1.4 MG/DL (0.2-1.0) H 0.2 MG/DL (0.2-1.0) Direct Bilirubin 0.7 MG/DL (0.0-0.3) H Aspartate Amino Transf (AST/SGOT) 21 U/L (15-37) 28 U/L (15-37) Alanine Aminotransferase (ALT/SGPT) 37 U/L (12-78) 10 U/L (12-78) L Alkaline Phosphatase 158 U/L (46-116) H 74 U/L (46-116) Total Protein 6.1 G/DL (6.4-8.2) L 5.4 G/DL (6.4-8.2) L Albumin 1.7 G/DL (3.4-5.0) L 1.5 G/DL (3.4-5.0) L Globulin 4.4 g/dL 3.9 g/dL Albumin/Globulin Ratio 0.4 (1.0-2.7) L 0.4 (1.0-2.7) L Arterial Blood pH 7.464 (7.350-7.450) Arterial Blood Partial Pressure CO2 34.6 mmHg (35.0-45.0) L Arterial Blood Partial Pressure O2 110.1 mmHg (75.0-100.0) H Arterial Blood HCO3 24.3 mmol/L (22.0-26.0) Arterial Blood Oxygen Saturation 97.7 % (95-100) Arterial Blood Base Excess 0.7 (-2-2) Jose Luis Test Positive Random Vancomycin Level 16.2 ug/mL General: well developed, well nourished Head: normocophalic, atraumatic Neck: no rigidity EENT: benign Neurologic Exam Mental Status: awake, alert Cranial Nerves III, IV, : PERRLA, EOMI Cranial Nerve VIII: normal hearing Cranial Nerve XII: tongue midline Motor System: other - Right sided hemiplegia with TF in leg and min withdrawal at shoulder / Left sided w/d and apparent full strength to noxious stimuli Sensory: other - Some indication of paresthesia requiring increased noxious stimuli on right side Objective Remains intubated on ventilator, with gag reflex Not following commands and more lethargic on exam today. Right side plegic, with slight movement proximally > distally. Left side w/d and UE now in restraints Impression/Recommendations Problems: (1) Acute encephalopathy Assessment & Plan: Improved exam today- no sedation and tracking with eyes for first day. Still not following commands. Vent weaning trial again tomorrow. (2) Septic shock (3) Respiratory failure (4) Dementia (5) Altered level of consciousness (6) CVA, old, hemiparesis Assessment & Plan: CT Brain 03/09/19: Old left parietal and occipital infarct Moderate atrophy of the brain. 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 (7) Diabetes Status: stable Diagnostic Impression MRI ordered to rule out acute stroke as cause of increased AMS and respiratory failure but unable to obtain at this time due to ventilatory status Wean Vent as able - failed trials x 2, now off sedation with increased lethargy on exam. RECOMMEND ABG at this time to make vent adjustments for possible hypoxia/ hypoxemia. Maintain Normoglycemia with ISS May start ASA HgB> 8 - dropping on CBC, track and trend Maintain normoglycemia with ISS MRI when off vent Continue enteral feeding SBP< 140 Folate replacement recommended Recommendations Q 2 hour neuro obs Abx as needed Wean vent PLEASE AVOID ALL USE OF OPIOID NARCOTICS, BENZODIAZAPENES OR ANTICHOLINERGICS- especially prior to weaning attempts Seroquel 25mg QD PRN for agitation- can be increased if necessary Continue Phenytoin but no indication for increased dosage or addition of second line AED This was a critical care note. Critical care time of 45 minutes, was performed in order to assess and manage the high probability of imminent or life threatening deterioration to respiratory/neurologic function, with frequent reassessment and excludes all billable procedures. Ngozi Franklin N.P. March 14, 2019 23:56
[2019-03-15] VITALS (24 sets, daily range): BP systolic 90–161; BP diastolic 35–85
[2019-03-15] MEDS: NovoLOG Insulin Flexpen SUBQ SCH ×5 (00:21→23:24)
[2019-03-15 05:18] LABS: BASOPHILS % (AUTO) 0.8 % (0.0-2.0); EOSINOPHILS % (AUTO) 1.5 % (0.0-3.0); HEMATOCRIT 29.7 % (37.0-47.0); HEMOGLOBIN 9.9 G/DL (12.0-16.0); LYMPHOCYTES % (AUTO) 23.5 % (20.0-45.0); MEAN CORPUSCULAR VOLUME 101 FL (80-99); MONOCYTES % (AUTO) 7.1 % (1.0-10.0); NEUTROPHILS % (AUTO) 67.1 % (45.0-75.0); PLATELET COUNT 128 K/UL (150-450); RED BLOOD COUNT 2.93 M/UL (4.20-5.40); RED CELL DISTRIBUTION WIDTH 12.8 % (11.6-14.8)
[2019-03-15 05:46] LABS: ANION GAP 7 mmol/L (5-15); BLOOD UREA NITROGEN 17 mg/dL (7-18); CALCIUM 8.4 MG/DL (8.5-10.1); CARBON DIOXIDE 26 MMOL/L (21-32); CHLORIDE 108 MMOL/L (98-107); CREATININE 0.6 MG/DL (0.55-1.30); POTASSIUM 4.6 MMOL/L (3.5-5.1); SODIUM 141 MMOL/L (136-145)
[2019-03-15] MEDS: Acetaminophen 650mg/20.3ml GT PRN (10:09)
[2019-03-15] MEDS: Phenytoin Susp 100mg/4ml GT SCH ×2 (10:10→20:29)
[2019-03-15] MEDS: Pantoprazole Inj IVP SCH (10:11)
--- NOTE | 2019-03-15 12:28 | Pulmonology Progress Note ---
Assessment/Plan Assessment/Plan 1. Acute respiratory failure. 2. Severe dehydration with shock. 3. Severe hypernatremia. 4. Multi-infarct dementia. 5. Possible acute myocardial infarction. 6. History of heart failure. 7. History of atrial fibrillation. 8. Gastric tube with dysphagia. 9. History of chronic obstructive pulmonary disease. 10. History of seizures with therapeutic Dilantin level. 11. History of hypertension. 12. Hyperlipidemia. 13. Diabetes. 14. Sepsis - LONG TERM bacteremia not tolerating weaning NOT responsive ID following prognosis poor may need trach disc w dtr and grdtr at bedside and explained lack of progress, possible trach Subjective ROS Limited/Unobtainable: Yes Allergies: Coded Allergies: PENICILLINS (Verified Allergy, Unknown, 02/04/18) SULFA (SULFONAMIDE ANTIBIOTICS) (Verified Allergy, Unknown, 02/04/18) SULFACETAMIDE (Unverified Allergy, Unknown, 06/24/18) Objective Last 24 Hour Vital Signs Date Time Temp Pulse Resp B/P (MAP) Pulse Ox O2 Delivery O2 Flow Rate FiO2 03/15/19 11:29 84 24 35 03/15/19 09:10 84 24 35 03/15/19 07:15 86 20 35 03/15/19 06:00 84 28 105/49 (67) 100 03/15/19 05:00 98.5 90 20 161/85 (110) 100 03/15/19 04:58 81 26 35 03/15/19 04:00 99 03/15/19 04:00 35 03/15/19 04:00 82 26 140/60 (86) 100 03/15/19 04:00 Mechanical Ventilator Mechanical Ventilator 03/15/19 03:30 80 23 100 03/15/19 03:15 82 23 100 03/15/19 03:11 79 18 35 03/15/19 03:00 85 26 112/52 (72) 100 03/15/19 02:00 85 26 112/52 (72) 100 03/15/19 01:05 86 21 35 03/15/19 01:00 77 25 110/55 (73) 100 03/15/19 00:00 35 03/15/19 00:00 Mechanical Ventilator Mechanical Ventilator 03/15/19 00:00 77 19 101/45 (63) 100 03/15/19 00:00 77 03/14/19 23:20 82 30 35 03/14/19 23:00 78 23 125/38 (67) 95 03/14/19 22:00 71 14 106/46 (66) 100 03/14/19 21:20 78 31 35 03/14/19 21:00 76 13 123/49 (73) 100 03/14/19 21:00 101/45 03/14/19 20:53 18 03/14/19 20:50 77 19 35 03/14/19 20:00 98.5 75 16 111/46 (67) 100 03/14/19 20:00 74 03/14/19 20:00 35 03/14/19 20:00 Mechanical Ventilator Mechanical Ventilator 03/14/19 19:00 82 26 119/51 (73) 100 03/14/19 18:00 74 16 107/54 (71) 99 03/14/19 17:14 77 26 35 03/14/19 17:00 72 23 102/43 (62) 100 03/14/19 16:00 98.7 72 18 116/47 (70) 100 03/14/19 16:00 Mechanical Ventilator Mechanical Ventilator 03/14/19 16:00 35 03/14/19 16:00 94 03/14/19 15:27 64 17 35 03/14/19 15:26 64 17 Mechanical Ventilator 35 03/14/19 15:00 60 16 94/44 (61) 96 03/14/19 14:00 69 16 110/44 (66) 96 03/14/19 13:00 71 18 106/42 (63) 100 03/14/19 12:38 65 16 35 Intake and Output 03/14/19 03/15/19 19:00 07:00 Intake Total 1548 ml 710 ml Output Total 560 ml 550 ml Balance 988 ml 160 ml Free Water 100 ml 0 ml IV Total 638 ml Tube Feeding 710 ml 660 ml Blood Product 100 ml 50 ml Output Urine Total 560 ml 550 ml # Bowel Movements 1 1 Objective GT General Appearance: no acute distress HEENT: atraumatic Respiratory/Chest: decreased breath sounds Cardiovascular: normal rate Abdomen: soft, non tender Laboratory Tests 03/14/19 12:50: White Blood Count 8.5, Red Blood Count 2.65L, Hemoglobin 8.7L, Hematocrit 26.4L , Mean Corpuscular Volume 100#H, Mean Corpuscular Hemoglobin 33.0H, Mean Corpuscular Hemoglobin Concent 33.0, Red Cell Distribution Width 12.8, Platelet Count 118#L, Mean Platelet Volume 10.2H, Neutrophils (%) (Auto) 67.2, Lymphocytes (%) (Auto) 24.4, Monocytes (%) (Auto) 6.4, Eosinophils (%) (Auto) 1.6, Basophils (%) (Auto) 0.4, Sodium Level 142, Potassium Level 3.9, Chloride Level 108H, Carbon Dioxide Level 27, Anion Gap 7, Blood Urea Nitrogen 15, Creatinine 0.6#, Estimat Glomerular Filtration Rate , Glucose Level 158H, Calcium Level 7.7L, Total Bilirubin 0.2, Aspartate Amino Transf (AST/SGOT) 28, Alanine Aminotransferase (ALT/SGPT) 10L, Alkaline Phosphatase 74, Total Protein 5.4L, Albumin 1.5L, Globulin 3.9, Albumin/Globulin Ratio 0.4L 03/14/19 20:20: Random Vancomycin Level 16.2 03/15/19 03:50: White Blood Count 8.0, Red Blood Count 2.93L, Hemoglobin 9.9L, Hematocrit 29.7L , Mean Corpuscular Volume 101H, Mean Corpuscular Hemoglobin 33.8H, Mean Corpuscular Hemoglobin Concent 33.3, Red Cell Distribution Width 12.8, Platelet Count 128L, Mean Platelet Volume 9.4, Neutrophils (%) (Auto) 67.1, Lymphocytes ( %) (Auto) 23.5, Monocytes (%) (Auto) 7.1, Eosinophils (%) (Auto) 1.5, Basophils (%) (Auto) 0.8, Sodium Level 141, Potassium Level 4.6, Chloride Level 108H, Carbon Dioxide Level 26, Anion Gap 7, Blood Urea Nitrogen 17, Creatinine 0.6, Estimat Glomerular Filtration Rate , Glucose Level 109H, Calcium Level 8.4L, Magnesium Level 2.5H, Pro-B-Type Natriuretic Peptide 2790H Current Medications Medications (Trade) Dose Ordered Sig/Singh Route PRN Reason Start Time Stop Time Status Last Admin Dose Admin Acetaminophen (Tylenol) 650 mg Q4H PRN GT Mild Pain/Temp > 100.5 03/09/19 20:30 04/08/19 20:29 03/15/19 10:09 Chlorhexidine Gluconate (Azra-Hex 2%) 1 applic DAILY@2000 TOPIC 03/10/19 20:00 04/09/19 19:59 03/14/19 20:43 Dextrose (Dextrose 50%) 25 ml Q30M PRN IV Hypoglycemia 03/09/19 21:00 04/08/19 20:59 Dextrose (Dextrose 50%) 50 ml Q30M PRN IV Hypoglycemia 03/09/19 21:00 04/08/19 20:59 Dextrose/ Electrolytes 1,000 ml @ 50 mls/hr Q20H IV 03/12/19 14:53 04/09/19 14:52 03/14/19 17:20 Fentanyl Citrate 1000 mcg/Sodium Chloride 100 ml @ 0 mls/hr Q24H IV 03/09/19 20:53 03/16/19 20:52 03/11/19 21:47 Insulin Aspart (NovoLOG) EVERY 6 HOURS SUBQ 03/10/19 00:00 04/09/19 00:00 03/15/19 00:21 Lorazepam (Ativan 2mg/ml 1ml) 0.5 mg Q4H PRN IV seizure 03/14/19 20:45 03/19/19 20:44 03/15/19 10:09 Meropenem 1 gm/ Sodium Chloride 55 ml @ 110 mls/hr Q12H IVPB 03/15/19 12:00 03/19/19 11:59 Norepinephrine Bitartrate 8 mg/ Dextrose 250 ml @ 0 mls/hr Q24H IV 03/09/19 21:00 04/08/19 20:59 03/11/19 23:19 Pantoprazole (Protonix) 40 mg DAILY IVP 03/10/19 09:00 04/09/19 08:59 03/15/19 10:11 Phenytoin (Dilantin) 125 mg Q12HR GT 03/09/19 21:00 04/08/19 20:59 03/15/19 10:10 Quetiapine Fumarate (SEROquel) 25 mg DAILYPRN PRN ORAL agitation 03/14/19 19:00 04/13/19 18:59 Vancomycin HCl (Vanco rx to dose) 1 ea DAILY PRN MISC Per rx protocol 03/09/19 20:30 04/08/19 20:29 Vancomycin HCl 1 gm/Sodium Chloride 275 ml @ 183.708 mls/hr Q24H IVPB 03/15/19 22:00 03/20/19 21:59 Fernando Franks MD March 15, 2019 12:28
[2019-03-15] MEDS: Meropenem 1gm in NS 55ml IVPB SCH ×2 (13:11→23:24)
--- NOTE | 2019-03-15 13:14 | Diagnostic Imaging Report ---
Indication: Dyspnea Comparison: 03/12/2019 A single view chest radiograph was obtained. Findings: Endotracheal tube and right jugular line are stable. Mild pulmonary vascular congestion suspected. IMPRESSION: No change from the prior exam. Mild CHF suspected
[2019-03-15] MEDS: D5W w/KCl 20mEq 1,000 ML IV SCH (15:05)
--- NOTE | 2019-03-15 15:08 | Infectious Diseases Prog Note ---
Assessment/Plan Assessment/Plan ASSESSMENT/PLAN: 1. 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 Respiratory failure, on vent. 3. Diabetes. 4. Hypertension. 5. Blood sugar and blood pressure treatment per primary for diabetes and hypertension. 6. Atrial fibrillation. 7. Heart failure. 8. G-tube. 9. Skin care protocol. 10. Cardiomegaly. 11. CAD and OH. 12. Hyperlipidemia. 13. Seizure disorder. 14. GERD. 15. History of CVA. 16. Allergic to penicillin and sulfa, tolerates meropenem. 17. Social history is negative. 18. Family history is noncontributory. 19. MAR is noted. 20. Case discussed with Dr. Franks. 21. Continue treatment per primary consultants. Subjective Constitutional: Reports: other - weak, lethargc, no pressors, on vent ; Denies : fever HEENT: Reports: congestion Respiratory: Reports: shortness of breath Cardiovascular: Reports: other - no pressors Gastrointestinal/Abdominal: Denies: nausea, vomiting, diarrhea Genitourinary: Reports: other - + macias Neurologic: Reports: weakness Psychiatric: Reports: other - na Skin: Denies: rash Hematologic: Denies: bleeding Musculoskeletal: Reports: other - na Allergies: Coded Allergies: PENICILLINS (Verified Allergy, Unknown, 02/04/18) SULFA (SULFONAMIDE ANTIBIOTICS) (Verified Allergy, Unknown, 02/04/18) SULFACETAMIDE (Unverified Allergy, Unknown, 06/24/18) Objective Vital Signs Last 24 Hour Vital Signs Date Time Temp Pulse Resp B/P (MAP) Pulse Ox O2 Delivery O2 Flow Rate FiO2 03/15/19 13:21 80 16 35 03/15/19 13:00 70 16 90/49 (63) 100 03/15/19 12:00 35 03/15/19 12:00 98.7 76 22 119/74 (89) 100 03/15/19 12:00 Mechanical Ventilator Mechanical Ventilator 03/15/19 12:00 74 03/15/19 11:29 84 24 35 03/15/19 11:00 73 15 97/40 (59) 100 03/15/19 10:00 35 03/15/19 10:00 89 27 112/81 (91) 100 03/15/19 09:10 84 24 35 03/15/19 09:00 74 14 98/42 (60) 100 03/15/19 08:00 35 03/15/19 08:00 Mechanical Ventilator Mechanical Ventilator 03/15/19 08:00 83 03/15/19 08:00 98.7 84 24 111/47 (68) 100 03/15/19 07:15 86 20 35 03/15/19 07:00 82 22 116/48 (70) 100 03/15/19 06:00 84 28 105/49 (67) 100 03/15/19 05:00 98.5 90 20 161/85 (110) 100 03/15/19 04:58 81 26 35 03/15/19 04:00 99 03/15/19 04:00 35 03/15/19 04:00 82 26 140/60 (86) 100 03/15/19 04:00 Mechanical Ventilator Mechanical Ventilator 03/15/19 03:30 80 23 100 03/15/19 03:15 82 23 100 03/15/19 03:11 79 18 35 03/15/19 03:00 85 26 112/52 (72) 100 03/15/19 02:00 85 26 112/52 (72) 100 03/15/19 01:05 86 21 35 03/15/19 01:00 77 25 110/55 (73) 100 03/15/19 00:00 35 03/15/19 00:00 Mechanical Ventilator Mechanical Ventilator 03/15/19 00:00 77 19 101/45 (63) 100 03/15/19 00:00 77 03/14/19 23:20 82 30 35 03/14/19 23:00 78 23 125/38 (67) 95 03/14/19 22:00 71 14 106/46 (66) 100 03/14/19 21:20 78 31 35 03/14/19 21:00 76 13 123/49 (73) 100 03/14/19 21:00 101/45 03/14/19 20:53 18 03/14/19 20:50 77 19 35 03/14/19 20:00 98.5 75 16 111/46 (67) 100 03/14/19 20:00 74 03/14/19 20:00 35 03/14/19 20:00 Mechanical Ventilator Mechanical Ventilator 03/14/19 19:00 82 26 119/51 (73) 100 03/14/19 18:00 74 16 107/54 (71) 99 03/14/19 17:14 77 26 35 03/14/19 17:00 72 23 102/43 (62) 100 03/14/19 16:00 98.7 72 18 116/47 (70) 100 03/14/19 16:00 Mechanical Ventilator Mechanical Ventilator 03/14/19 16:00 35 03/14/19 16:00 94 03/14/19 15:27 64 17 35 03/14/19 15:26 64 17 Mechanical Ventilator 35 03/14/19 15:00 60 16 94/44 (61) 96 Height (Feet): 5 Height (Inches): 8.00 Weight (Pounds): 141 General Appearance: other - + vent HEENT: normocephalic, atraumatic, anicteric, mucous membranes moist Respiratory/Chest: crackles/rales, rhonchi - bilaterally Cardiovascular: normal rate, regular rhythm, no gallop/murmur, no JVD Abdomen: normal bowel sounds, soft, non tender, no organomegaly, non distended Genitourinary: other - + macias - urine clearer Extremities: no cyanosis Skin: no rash Neurologic/Psychiatric: other - lethargic, weak, on vent Lymphatic: no neck adenopathy Musculoskeletal: no effusion Objective Chest x-ray - 03/15 - Comparison: 03/12/2019 A single view chest radiograph was obtained. Findings: Endotracheal tube and right jugular line are stable. Mild pulmonary vascular congestion suspected. IMPRESSION: No change from the prior exam. Mild CHF suspected Microbiology Date/Time Source Procedure Growth Status 03/09/19 14:10 Blood Blood Culture - Final Staphylococcus Sp Coag Neg Complete 03/09/19 22:00 Sputum Induced Gram Stain - Final Complete 03/09/19 22:00 Sputum Culture - Final Providencia Stuartii [place] Tropicalis Usual Respiratory Minoo Complete 03/11/19 17:00 Indwelling Cath Urine Culture - Final Escherichia Coli - Esbl Complete 03/09/19 14:35 Rectum VRE Culture - Final NO VANCOMYCIN RESISTANT ENTEROCOCCUS ... Complete 03/09/19 14:35 Rectum - Final NO CARBAPENEM-RESISTANT ENTEROBACTERI... Complete Laboratory Tests Test 03/14/19 20:20 03/15/19 03:50 Random Vancomycin Level 16.2 ug/mL White Blood Count 8.0 K/UL (4.8-10.8) Red Blood Count 2.93 M/UL (4.20-5.40) L Hemoglobin 9.9 G/DL (12.0-16.0) L Hematocrit 29.7 % (37.0-47.0) L Mean Corpuscular Volume 101 FL (80-99) H Mean Corpuscular Hemoglobin 33.8 PG (27.0-31.0) H Mean Corpuscular Hemoglobin Concent 33.3 G/DL (32.0-36.0) Red Cell Distribution Width 12.8 % (11.6-14.8) Platelet Count 128 K/UL (150-450) L Mean Platelet Volume 9.4 FL (6.5-10.1) Neutrophils (%) (Auto) 67.1 % (45.0-75.0) Lymphocytes (%) (Auto) 23.5 % (20.0-45.0) Monocytes (%) (Auto) 7.1 % (1.0-10.0) Eosinophils (%) (Auto) 1.5 % (0.0-3.0) Basophils (%) (Auto) 0.8 % (0.0-2.0) Sodium Level 141 MMOL/L (136-145) Potassium Level 4.6 MMOL/L (3.5-5.1) Chloride Level 108 MMOL/L (98-107) H Carbon Dioxide Level 26 MMOL/L (21-32) Anion Gap 7 mmol/L (5-15) Blood Urea Nitrogen 17 mg/dL (7-18) Creatinine 0.6 MG/DL (0.55-1.30) Estimat Glomerular Filtration Rate mL/min (>60) Glucose Level 109 MG/DL (74-106) H Calcium Level 8.4 MG/DL (8.5-10.1) L Magnesium Level 2.5 MG/DL (1.8-2.4) H Pro-B-Type Natriuretic Peptide 2790 pg/mL (0-125) H Current Medications Medications (Trade) Dose Ordered Sig/Singh Route PRN Reason Start Time Stop Time Status Last Admin Dose Admin Acetaminophen (Tylenol) 650 mg Q4H PRN GT Mild Pain/Temp > 100.5 03/09/19 20:30 04/08/19 20:29 03/15/19 10:09 Chlorhexidine Gluconate (Azra-Hex 2%) 1 applic DAILY@2000 TOPIC 03/10/19 20:00 04/09/19 19:59 03/14/19 20:43 Dextrose (Dextrose 50%) 25 ml Q30M PRN IV Hypoglycemia 03/09/19 21:00 04/08/19 20:59 Dextrose (Dextrose 50%) 50 ml Q30M PRN IV Hypoglycemia 03/09/19 21:00 04/08/19 20:59 Dextrose/ Electrolytes 1,000 ml @ 50 mls/hr Q20H IV 03/12/19 14:53 04/09/19 14:52 03/14/19 17:20 Fentanyl Citrate 1000 mcg/Sodium Chloride 100 ml @ 0 mls/hr Q24H IV 03/09/19 20:53 03/16/19 20:52 03/11/19 21:47 Insulin Aspart (NovoLOG) EVERY 6 HOURS SUBQ 03/10/19 00:00 04/09/19 00:00 03/15/19 13:17 Lorazepam (Ativan 2mg/ml 1ml) 0.5 mg Q4H PRN IV seizure 03/14/19 20:45 03/19/19 20:44 03/15/19 10:09 Meropenem 1 gm/ Sodium Chloride 55 ml @ 110 mls/hr Q12H IVPB 03/15/19 12:00 03/19/19 11:59 03/15/19 13:11 Norepinephrine Bitartrate 8 mg/ Dextrose 250 ml @ 0 mls/hr Q24H IV 03/09/19 21:00 04/08/19 20:59 03/11/19 23:19 Pantoprazole (Protonix) 40 mg DAILY IVP 03/10/19 09:00 04/09/19 08:59 03/15/19 10:11 Phenytoin (Dilantin) 125 mg Q12HR GT 03/09/19 21:00 04/08/19 20:59 03/15/19 10:10 Quetiapine Fumarate (SEROquel) 25 mg DAILYPRN PRN ORAL agitation 03/14/19 19:00 04/13/19 18:59 Vancomycin HCl (Vanco rx to dose) 1 ea DAILY PRN MISC Per rx protocol 03/09/19 20:30 04/08/19 20:29 Vancomycin HCl 1 gm/Sodium Chloride 275 ml @ 183.708 mls/hr Q24H IVPB 03/15/19 22:00 03/20/19 21:59 Prashanth Osborne MD March 15, 2019 15:08
--- NOTE | 2019-03-15 17:44 | Cardiology Progress Note ---
Assessment/Plan Assessment/Plan 1. Hypernatremia free water deficit 2. Likely demand ischemia 3. Metabolic alkalosis. 4. altered mentation secondary to above. 5. Anemia, mild. 6. History of seizures. 7. Diabetes history. 8. Hypertension history. 9. hs of diastolic failure 10.New LV systolic dysfunction ? 11. bactermia yest lab erroneous as suspected trop min abn still bp is ok remain on the vent failed weaning 03/10 echo report noted some echo views were reviewed may not have as bad an lv function as reported atlhgouh the images are not typical stress induced cm may be in the differential on iv abx continue vent support off diurtics and off bp meds not tachy hemodynamic are better tele monitor sinus on iv abx cxr personally reviweed Subjective ROS Limited/Unobtainable: Yes Objective Last 24 Hour Vital Signs Date Time Temp Pulse Resp B/P (MAP) Pulse Ox O2 Delivery O2 Flow Rate FiO2 03/15/19 16:00 Mechanical Ventilator Mechanical Ventilator 03/15/19 16:00 70 03/15/19 16:00 35 03/15/19 16:00 98.5 74 20 123/55 (77) 100 03/15/19 15:20 72 18 35 03/15/19 15:00 62 24 98/53 (68) 99 03/15/19 14:00 64 15 100/43 (62) 100 03/15/19 13:21 80 16 35 03/15/19 13:00 70 16 90/49 (63) 100 03/15/19 12:00 35 03/15/19 12:00 98.7 76 22 119/74 (89) 100 03/15/19 12:00 Mechanical Ventilator Mechanical Ventilator 03/15/19 12:00 74 03/15/19 11:29 84 24 35 03/15/19 11:00 73 15 97/40 (59) 100 03/15/19 10:00 35 03/15/19 10:00 89 27 112/81 (91) 100 03/15/19 09:10 84 24 35 03/15/19 09:00 74 14 98/42 (60) 100 03/15/19 08:00 35 03/15/19 08:00 Mechanical Ventilator Mechanical Ventilator 03/15/19 08:00 83 03/15/19 08:00 98.7 84 24 111/47 (68) 100 03/15/19 07:15 86 20 35 03/15/19 07:00 82 22 116/48 (70) 100 03/15/19 06:00 84 28 105/49 (67) 100 03/15/19 05:00 98.5 90 20 161/85 (110) 100 03/15/19 04:58 81 26 35 03/15/19 04:00 99 03/15/19 04:00 35 03/15/19 04:00 82 26 140/60 (86) 100 03/15/19 04:00 Mechanical Ventilator Mechanical Ventilator 03/15/19 03:30 80 23 100 03/15/19 03:15 82 23 100 03/15/19 03:11 79 18 35 03/15/19 03:00 85 26 112/52 (72) 100 03/15/19 02:00 85 26 112/52 (72) 100 03/15/19 01:05 86 21 35 03/15/19 01:00 77 25 110/55 (73) 100 03/15/19 00:00 35 03/15/19 00:00 Mechanical Ventilator Mechanical Ventilator 03/15/19 00:00 77 19 101/45 (63) 100 03/15/19 00:00 77 03/14/19 23:20 82 30 35 03/14/19 23:00 78 23 125/38 (67) 95 03/14/19 22:00 71 14 106/46 (66) 100 03/14/19 21:20 78 31 35 03/14/19 21:00 76 13 123/49 (73) 100 03/14/19 21:00 101/45 03/14/19 20:53 18 03/14/19 20:50 77 19 35 03/14/19 20:00 98.5 75 16 111/46 (67) 100 03/14/19 20:00 74 03/14/19 20:00 35 03/14/19 20:00 Mechanical Ventilator Mechanical Ventilator 03/14/19 19:00 82 26 119/51 (73) 100 03/14/19 18:00 74 16 107/54 (71) 99 General Appearance: no apparent distress, on vent, patient on isolation Cardiovascular: normal rate, regular rhythm Respiratory/Chest: lungs clear - ant Abdomen: normal bowel sounds, non tender, soft Extremities: trace edema Intake and Output 03/14/19 03/15/19 18:59 06:59 Intake Total 1388 ml 870 ml Output Total 530 ml 580 ml Balance 858 ml 290 ml Free Water 100 ml 0 ml IV Total 588 ml 50 ml Tube Feeding 650 ml 720 ml Blood Product 50 ml 100 ml Output Urine Total 530 ml 580 ml # Bowel Movements 2 Laboratory Tests Test 03/14/19 20:20 03/15/19 03:50 Random Vancomycin Level 16.2 ug/mL White Blood Count 8.0 K/UL (4.8-10.8) Red Blood Count 2.93 M/UL (4.20-5.40) L Hemoglobin 9.9 G/DL (12.0-16.0) L Hematocrit 29.7 % (37.0-47.0) L Mean Corpuscular Volume 101 FL (80-99) H Mean Corpuscular Hemoglobin 33.8 PG (27.0-31.0) H Mean Corpuscular Hemoglobin Concent 33.3 G/DL (32.0-36.0) Red Cell Distribution Width 12.8 % (11.6-14.8) Platelet Count 128 K/UL (150-450) L Mean Platelet Volume 9.4 FL (6.5-10.1) Neutrophils (%) (Auto) 67.1 % (45.0-75.0) Lymphocytes (%) (Auto) 23.5 % (20.0-45.0) Monocytes (%) (Auto) 7.1 % (1.0-10.0) Eosinophils (%) (Auto) 1.5 % (0.0-3.0) Basophils (%) (Auto) 0.8 % (0.0-2.0) Sodium Level 141 MMOL/L (136-145) Potassium Level 4.6 MMOL/L (3.5-5.1) Chloride Level 108 MMOL/L (98-107) H Carbon Dioxide Level 26 MMOL/L (21-32) Anion Gap 7 mmol/L (5-15) Blood Urea Nitrogen 17 mg/dL (7-18) Creatinine 0.6 MG/DL (0.55-1.30) Estimat Glomerular Filtration Rate mL/min (>60) Glucose Level 109 MG/DL (74-106) H Calcium Level 8.4 MG/DL (8.5-10.1) L Magnesium Level 2.5 MG/DL (1.8-2.4) H Pro-B-Type Natriuretic Peptide 2790 pg/mL (0-125) H Allen Bliss MD March 15, 2019 17:44
--- NOTE | 2019-03-15 18:51 | Neurology Progress Note ---
Interim History Interim History ROS Limited/Unobtainable: Yes Complaints: AMS Events: Failed 2 vent trials- Interim History Family at bedside wanting prognostication for patient's neurological status. Review of Systems All Systems: reviewed and negative except above Objective Physical Exam Last Vital Signs Date Time Temp Pulse Resp B/P (MAP) Pulse Ox O2 Delivery O2 Flow Rate FiO2 03/15/19 18:00 70 29 125/54 (77) 100 03/15/19 17:20 35 03/15/19 16:00 Mechanical Ventilator Mechanical Ventilator 03/15/19 16:00 98.5 03/10/19 08:55 50.0 Laboratory Tests Test 03/14/19 20:20 03/15/19 03:50 Random Vancomycin Level 16.2 ug/mL White Blood Count 8.0 K/UL (4.8-10.8) Red Blood Count 2.93 M/UL (4.20-5.40) L Hemoglobin 9.9 G/DL (12.0-16.0) L Hematocrit 29.7 % (37.0-47.0) L Mean Corpuscular Volume 101 FL (80-99) H Mean Corpuscular Hemoglobin 33.8 PG (27.0-31.0) H Mean Corpuscular Hemoglobin Concent 33.3 G/DL (32.0-36.0) Red Cell Distribution Width 12.8 % (11.6-14.8) Platelet Count 128 K/UL (150-450) L Mean Platelet Volume 9.4 FL (6.5-10.1) Neutrophils (%) (Auto) 67.1 % (45.0-75.0) Lymphocytes (%) (Auto) 23.5 % (20.0-45.0) Monocytes (%) (Auto) 7.1 % (1.0-10.0) Eosinophils (%) (Auto) 1.5 % (0.0-3.0) Basophils (%) (Auto) 0.8 % (0.0-2.0) Sodium Level 141 MMOL/L (136-145) Potassium Level 4.6 MMOL/L (3.5-5.1) Chloride Level 108 MMOL/L (98-107) H Carbon Dioxide Level 26 MMOL/L (21-32) Anion Gap 7 mmol/L (5-15) Blood Urea Nitrogen 17 mg/dL (7-18) Creatinine 0.6 MG/DL (0.55-1.30) Estimat Glomerular Filtration Rate mL/min (>60) Glucose Level 109 MG/DL (74-106) H Calcium Level 8.4 MG/DL (8.5-10.1) L Magnesium Level 2.5 MG/DL (1.8-2.4) H Pro-B-Type Natriuretic Peptide 2790 pg/mL (0-125) H General: well developed, well nourished Head: normocophalic, atraumatic Neck: no rigidity EENT: benign Neurologic Exam Mental Status: awake, alert Cranial Nerve II: no papilledema Cranial Nerves III, IV, : PERRLA, EOMI Cranial Nerve VIII: normal hearing Cranial Nerve XII: tongue midline Motor System: other - Right sided hemiplegia with TF in leg and min withdrawal at shoulder / Left sided w/d and apparent full strength to noxious stimuli Sensory: other - Some indication of paresthesia requiring increased noxious stimuli on right side Gait: normal regular Objective Remains intubated on ventilator, with gag reflex, frequently chewing ETT and moving tongue around. She is now making meaningful eye contact and tracking with her eyes. As per her granddaughter, she is now approximately back to her baseline - which was tracking people with her eyes, moving/ turning her head, she could be sounds but no formal speech. 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 Right facial weakness of whole face, including eye. Possible sensory loss on right side due to need for increased noxious stimulus to induce response. Right side plegic, with slight movement proximally > distally. Left side w/d and UE now in restraints because exhibiting full strength Impression/Recommendations Problems: (1) Acute encephalopathy Assessment & Plan: Improved exam today- no sedation and tracking with eyes for first day. Still not following commands. Vent weaning trial again tomorrow. (2) Septic shock (3) Respiratory failure (4) Dementia (5) Altered level of consciousness (6) CVA, old, hemiparesis Assessment & Plan: CT Brain 03/09/19: Old left parietal and occipital infarct Moderate atrophy of the brain. 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 (7) Diabetes Status: stable Diagnostic Impression MRI ordered to rule out acute stroke as cause of increased AMS and respiratory failure but unable to obtain at this time due to ventilatory status Wean Vent as able - failed trials x 2, now off sedation with increased lethargy on exam. RECOMMEND ABG at this time to make vent adjustments for possible hypoxia/ hypoxemia. Maintain Normoglycemia with ISS May start ASA HgB> 8 - dropping on CBC, track and trend Maintain normoglycemia with ISS MRI when off vent Continue enteral feeding SBP< 140 Folate replacement recommended Recommendations Q 2 hour neuro obs Abx as needed Discussed patient's mental status and neurological response at the bedside in detail . Made very special point to the granddaughter that I spoke with, that this in no way prognosticates Ms. Mello's future successful attempts at weaning off the ventilator. Discussed her advanced age, overall health, possible acute stroke in exact same territory as prior infarcts, poor health at baseline. Granddaughter explained that, at baseline, Ms Mello is unable to speak/ formally verbalize and is bedbound. She can only make sounds, and smile at loved ones. Ms. Mello's granddaughter verbally confirmed to me that she understands that the patient's improved mental status does not prognosticate for the rest of her body (lungs, heart, kidneys) systems and that she is in grave condition still, with the hope of being able to be weaned off the vent, with no assurances whatsoever from me that she will be successfully weaned. Wean vent as able please avoid benzos, opioids, anticholinergic drugs if the goal of treatment is to wean- Discuss goals of care with family - DNR vs hospice vs terminal extubation Seroquel 25mg QD PRN for agitation- can be increased if necessary Continue Phenytoin but no indication for increased dosage or addition of second line AED This was a critical care note. Critical care time of 45 minutes, was performed in order to assess and manage the high probability of imminent or life threatening deterioration to respiratory/neurologic function, with frequent reassessment and excludes all billable procedures. Ngozi Franklin N.P. March 15, 2019 18:51
--- NOTE | 2019-03-15 19:07 | Nephrology Progress Note ---
Assessment/Plan Assessment 1) Hypernatremia ghas resolved 2) coag + staph bacteremia ? source 3) S/P respiratory failure on the Vent 4) ? CHF Plan: Continue D5w at 50cc/hr IV ATB Will give Lasix 20 mg IV x1 Subjective Subjective She is still on the vent, NA is 141, CXRshows some CHF, failed weaning again Objective Objective Last 24 Hour Vital Signs Date Time Temp Pulse Resp B/P (MAP) Pulse Ox O2 Delivery O2 Flow Rate FiO2 03/15/19 18:00 70 29 125/54 (77) 100 03/15/19 17:20 74 16 35 03/15/19 17:00 69 16 103/46 (65) 100 03/15/19 16:00 Mechanical Ventilator Mechanical Ventilator 03/15/19 16:00 70 03/15/19 16:00 35 03/15/19 16:00 98.5 74 20 123/55 (77) 100 03/15/19 15:20 72 18 35 03/15/19 15:00 62 24 98/53 (68) 99 03/15/19 14:00 64 15 100/43 (62) 100 03/15/19 13:21 80 16 35 03/15/19 13:00 70 16 90/49 (63) 100 03/15/19 12:00 35 03/15/19 12:00 98.7 76 22 119/74 (89) 100 03/15/19 12:00 Mechanical Ventilator Mechanical Ventilator 03/15/19 12:00 74 03/15/19 11:29 84 24 35 03/15/19 11:00 73 15 97/40 (59) 100 03/15/19 10:00 35 03/15/19 10:00 89 27 112/81 (91) 100 03/15/19 09:10 84 24 35 03/15/19 09:00 74 14 98/42 (60) 100 03/15/19 08:00 35 03/15/19 08:00 Mechanical Ventilator Mechanical Ventilator 03/15/19 08:00 83 03/15/19 08:00 98.7 84 24 111/47 (68) 100 03/15/19 07:15 86 20 35 03/15/19 07:00 82 22 116/48 (70) 100 03/15/19 06:00 84 28 105/49 (67) 100 03/15/19 05:00 98.5 90 20 161/85 (110) 100 03/15/19 04:58 81 26 35 03/15/19 04:00 99 03/15/19 04:00 35 03/15/19 04:00 82 26 140/60 (86) 100 03/15/19 04:00 Mechanical Ventilator Mechanical Ventilator 03/15/19 03:30 80 23 100 03/15/19 03:15 82 23 100 03/15/19 03:11 79 18 35 03/15/19 03:00 85 26 112/52 (72) 100 03/15/19 02:00 85 26 112/52 (72) 100 03/15/19 01:05 86 21 35 03/15/19 01:00 77 25 110/55 (73) 100 03/15/19 00:00 35 03/15/19 00:00 Mechanical Ventilator Mechanical Ventilator 03/15/19 00:00 77 19 101/45 (63) 100 03/15/19 00:00 77 03/14/19 23:20 82 30 35 03/14/19 23:00 78 23 125/38 (67) 95 03/14/19 22:00 71 14 106/46 (66) 100 03/14/19 21:20 78 31 35 03/14/19 21:00 76 13 123/49 (73) 100 03/14/19 21:00 101/45 03/14/19 20:53 18 03/14/19 20:50 77 19 35 03/14/19 20:00 98.5 75 16 111/46 (67) 100 03/14/19 20:00 74 03/14/19 20:00 35 03/14/19 20:00 Mechanical Ventilator Mechanical Ventilator Intake and Output 03/14/19 03/15/19 18:59 06:59 Intake Total 1388 ml 870 ml Output Total 530 ml 580 ml Balance 858 ml 290 ml Free Water 100 ml 0 ml IV Total 588 ml 50 ml Tube Feeding 650 ml 720 ml Blood Product 50 ml 100 ml Output Urine Total 530 ml 580 ml # Bowel Movements 2 Laboratory Tests 03/14/19 20:20: Random Vancomycin Level 16.2 03/15/19 03:50: White Blood Count 8.0, Red Blood Count 2.93L, Hemoglobin 9.9L, Hematocrit 29.7L , Mean Corpuscular Volume 101H, Mean Corpuscular Hemoglobin 33.8H, Mean Corpuscular Hemoglobin Concent 33.3, Red Cell Distribution Width 12.8, Platelet Count 128L, Mean Platelet Volume 9.4, Neutrophils (%) (Auto) 67.1, Lymphocytes ( %) (Auto) 23.5, Monocytes (%) (Auto) 7.1, Eosinophils (%) (Auto) 1.5, Basophils (%) (Auto) 0.8, Sodium Level 141, Potassium Level 4.6, Chloride Level 108H, Carbon Dioxide Level 26, Anion Gap 7, Blood Urea Nitrogen 17, Creatinine 0.6, Estimat Glomerular Filtration Rate , Glucose Level 109H, Calcium Level 8.4L, Magnesium Level 2.5H, Pro-B-Type Natriuretic Peptide 2790H Height (Feet): 5 Height (Inches): 8.00 Weight (Pounds): 141 General Appearance: WD/WN, no apparent distress, other - on the vent EENT: PERRL/EOMI Neck: non-tender, normal alignment, supple Cardiovascular: normal rate, regular rhythm, JVD - high nl Respiratory/Chest: crackles/rales Abdomen: normal bowel sounds, non tender Extremities: moderate edema Neurologic: no motor/sensory deficits Ulisses Tello MD March 15, 2019 19:07
--- NOTE | 2019-03-15 19:48 | Cardiology Report ---
APPROVED REPORT EKG Measurement Heart [id number] Normal sinus rhythm with sinus arrhythmia Incomplete left bundle branch block Abnormal ECG
[2019-03-15] MEDS: Dyna-Hex 2% Top Sol 2oz TOPIC SCH (20:28)
[2019-03-15] MEDS: Vancomycin 1 GM in NS 275 ML IVPB SCH (20:29)
[2019-03-16] VITALS (24 sets, daily range): BP systolic 107–158; BP diastolic 43–62
--- NOTE | 2019-03-16 00:25 | Emergency Room Report ---
History of Present Illness General Chief Complaint: Altered Level of Consciousness Source: Medical Record Present Illness HPI I was called to the ICU to reintubate this patient. She was intubated for respiratory failure and sepsis. Her endotracheal tube was not getting good tidal volume in the evidence of leak. On my arrival patient is awake and chewing on the tube. Tubing to check for the balloon has been chewed off. I reintubated patient without any issue. Chest x-ray showed good placement. No pneumothorax. Allergies: Coded Allergies: PENICILLINS (Verified Allergy, Unknown, 02/04/18) SULFA (SULFONAMIDE ANTIBIOTICS) (Verified Allergy, Unknown, 02/04/18) SULFACETAMIDE (Unverified Allergy, Unknown, 06/24/18) Patient History Past Medical History: see triage record, old chart reviewed Nursing Documentation-[facility] Past Medical History Deferred: Pt Cognitively Impaired Past Medical History: No History, Except For Hx Cardiac Problems: Yes Hx Hypertension: Yes Hx COPD: Yes Hx Diabetes: Yes Hx Cancer: No Hx Gastrointestinal Problems: Yes Hx Neurological Problems: Yes Hx Cerebrovascular Accident: Yes Hx Transient Ischemic Attacks: Yes Hx Seizures: Yes Hx Dizziness: Yes Hx Syncope: Yes Hx Weakness: Yes Hx Fatigue: Yes Physical Exam Vital Signs Date Time Temp Pulse Resp B/P (MAP) Pulse Ox O2 Delivery O2 Flow Rate FiO2 03/12/19 07:00 73 10 106/58 (74) 100 03/12/19 08:00 40 03/12/19 08:00 Mechanical Ventilator Mechanical Ventilator 03/12/19 08:00 100.4 Procedures Intubation Intubation : Consent: Emergent Intubation Method: orotracheal Tube Size (cm): 7.5 Medications: Etomidate, Succinylcholine Breath Sounds after Intubation: equal Intubation Complications: no complications Post Intubation Xray: Yes Progress/Xray Impression: Endotracheal tube in good position Attempts: One Patient Tolerated: Well Complications: None Progress I gave patient etomidate and succinylcholine. I did disconnect the patient from the ventilator. I pass a bougie through the old tube is removed it. New endotracheal tube pass through the bougie. I remove the bougie without a problem. Tube at 23 cm the lip. There is good air movement bilaterally. Good condensation. Good CO2 color change. Medical Decision Making Diagnostic Impression: Primary Impression: Altered level of consciousness Additional Impressions: Septic shock Respiratory failure Chest X-Ray Diagnostic Results Chest X-Ray Diagnostic Results : Chest X-Ray Ordered: Yes # of Views/Limited/Complete: 1 View Indication: Shortness of Breath Interpretation: no effusion, no pneumothorax, other - Endotracheal tube in good position. no ptx. b/l infiltrates Impression: Other - s/p intubation. Electronically Signed by: Costa Rai MD Last Vital Signs Date Time Temp Pulse Resp B/P (MAP) Pulse Ox O2 Delivery O2 Flow Rate FiO2 03/15/19 23:00 66 20 102/43 (62) 100 03/15/19 22:45 30 35 03/15/19 20:00 98.2 03/15/19 20:00 Mechanical Ventilator Mechanical Ventilator Disposition: ADMITTED INPATIENT Condition: Critical Referrals: Michael Sprague MD (PCP) Costa Rai MD March 16, 2019 00:25
[2019-03-16] MEDS: NovoLOG Insulin Flexpen SUBQ SCH ×4 (05:17→23:46)
[2019-03-16 05:34] LABS: BASOPHILS % (AUTO) 0.9 % (0.0-2.0); EOSINOPHILS % (AUTO) 2.5 % (0.0-3.0); HEMATOCRIT 23.9 % (37.0-47.0); LYMPHOCYTES % (AUTO) 24.2 % (20.0-45.0); MEAN CORPUSCULAR VOLUME 100 FL (80-99); MONOCYTES % (AUTO) 7.3 % (1.0-10.0); NEUTROPHILS % (AUTO) 65.2 % (45.0-75.0); PLATELET COUNT 137 K/UL (150-450); RED BLOOD COUNT 2.38 M/UL (4.20-5.40); RED CELL DISTRIBUTION WIDTH 12.5 % (11.6-14.8); WHITE BLOOD COUNT 6.5 K/UL (4.8-10.8)
[2019-03-16 05:50] LABS: ANION GAP 5 mmol/L (5-15); BLOOD UREA NITROGEN 13 mg/dL (7-18); CALCIUM 7.8 MG/DL (8.5-10.1); CARBON DIOXIDE 28 MMOL/L (21-32); CHLORIDE 109 MMOL/L (98-107); CREATININE 0.6 MG/DL (0.55-1.30); POTASSIUM 4.3 MMOL/L (3.5-5.1); SODIUM 142 MMOL/L (136-145)
[2019-03-16] MEDS: Phenytoin Susp 100mg/4ml GT SCH ×2 (09:18→21:11)
[2019-03-16] MEDS: Pantoprazole Inj IVP SCH (09:18)
--- NOTE | 2019-03-16 10:14 | Diagnostic Imaging Report ---
Indication: Status post intubation Comparison: 03/15/2019 A single view chest radiograph was obtained. Findings: Endotracheal tube was replaced or advanced and is in satisfactory position about 5 to 6 cm above the sandi. Right jugular line is again noted. Mild pulmonary vascular congestion suspected. There is evidence of a small right pleural effusion. IMPRESSION: Endotracheal tube in good position
[2019-03-16] MEDS: Meropenem 1gm in NS 55ml IVPB SCH ×2 (12:22→23:58)
--- NOTE | 2019-03-16 12:32 | Pulmonology Progress Note ---
Assessment/Plan Assessment/Plan 1. Acute respiratory failure. 2. Severe dehydration with shock. 3. Severe hypernatremia. 4. Multi-infarct dementia. 5. Possible acute myocardial infarction. 6. History of heart failure. 7. History of atrial fibrillation. 8. Gastric tube with dysphagia. 9. History of chronic obstructive pulmonary disease. 10. History of seizures with therapeutic Dilantin level. 11. History of hypertension. 12. Hyperlipidemia. 13. Diabetes. 14. Sepsis - [employer] bacteremia not tolerating weaning; no spontaneous respiration tested by me with RT at bedside vent adjusted re resp alkalosis ID following prognosis poor may need trach disc w dtr and grdtr granddaughter angry with me stating the other doctors advised she can be weaned states I lied to her that the lungs were clear yesterday when the CXR showed mild vascular congestion stated that there is nothing wrong with the patient's brain refused to consider trach or transfer to LTAC (as advised by insurance physician advisor) asked to speak with anesthesiology medical doctor; I asked Dr Wallis to call her he spoke to her and advised me she wants a second opinion; I asked Dr Briscoe to see her and he agreed will continue to follow Subjective ROS Limited/Unobtainable: Yes Allergies: Coded Allergies: PENICILLINS (Verified Allergy, Unknown, 02/04/18) SULFA (SULFONAMIDE ANTIBIOTICS) (Verified Allergy, Unknown, 02/04/18) SULFACETAMIDE (Unverified Allergy, Unknown, 06/24/18) Objective Last 24 Hour Vital Signs Date Time Temp Pulse Resp B/P (MAP) Pulse Ox O2 Delivery O2 Flow Rate FiO2 03/16/19 11:10 69 23 30 03/16/19 10:00 72 20 112/45 (67) 100 03/16/19 09:00 68 18 120/46 (70) 100 03/16/19 08:43 68 12 30 03/16/19 08:00 69 03/16/19 08:00 99.6 66 16 110/48 (68) 100 03/16/19 08:00 30 03/16/19 08:00 Mechanical Ventilator Mechanical Ventilator 03/16/19 07:15 68 16 30 03/16/19 07:00 71 18 128/58 (81) 100 03/16/19 06:00 68 16 119/50 (73) 100 03/16/19 05:24 72 16 30 35 03/16/19 05:00 78 18 158/60 (92) 100 03/16/19 04:00 98.3 68 16 115/48 (70) 100 03/16/19 04:00 Mechanical Ventilator Mechanical Ventilator 03/16/19 04:00 74 03/16/19 04:00 35 03/16/19 03:11 70 16 30 35 03/16/19 03:00 72 16 121/48 (72) 100 03/16/19 02:00 69 17 119/49 (72) 100 03/16/19 01:00 72 16 120/53 (75) 100 03/16/19 00:43 71 16 30 35 03/16/19 00:00 72 03/16/19 00:00 Mechanical Ventilator Mechanical Ventilator 03/16/19 00:00 35 03/16/19 00:00 99.1 71 16 122/62 (82) 100 03/15/19 23:00 66 20 102/43 (62) 100 03/15/19 22:45 67 16 30 35 03/15/19 22:00 65 20 92/35 (54) 100 03/15/19 21:00 72 20 127/49 (75) 100 03/15/19 20:41 71 18 30 35 03/15/19 20:29 127/82 03/15/19 20:00 35 03/15/19 20:00 98.2 75 16 122/46 (71) 100 03/15/19 20:00 Mechanical Ventilator Mechanical Ventilator 03/15/19 20:00 80 03/15/19 19:06 69 19 30 35 03/15/19 19:00 70 19 127/82 (97) 100 03/15/19 18:00 70 29 125/54 (77) 100 03/15/19 17:20 74 16 35 03/15/19 17:00 69 16 103/46 (65) 100 03/15/19 16:00 Mechanical Ventilator Mechanical Ventilator 03/15/19 16:00 70 03/15/19 16:00 35 03/15/19 16:00 98.5 74 20 123/55 (77) 100 03/15/19 15:20 72 18 35 03/15/19 15:00 62 24 98/53 (68) 99 03/15/19 14:00 64 15 100/43 (62) 100 03/15/19 13:21 80 16 35 03/15/19 13:00 70 16 90/49 (63) 100 Intake and Output 03/15/19 03/16/19 19:00 07:00 Intake Total 1380 ml 1650 ml Output Total 520 ml 1810 ml Balance 860 ml -160 ml IV Total 660 ml 930 ml Tube Feeding 720 ml 720 ml Output Urine Total 520 ml 1810 ml Objective GT General Appearance: other - unresponsive HEENT: atraumatic Respiratory/Chest: lungs clear Cardiovascular: normal rate Abdomen: soft, non tender Laboratory Tests 03/16/19 04:30: White Blood Count 6.5, Red Blood Count 2.38L, Hemoglobin 8.0L, Hematocrit 23.9L , Mean Corpuscular Volume 100H, Mean Corpuscular Hemoglobin 33.5H, Mean Corpuscular Hemoglobin Concent 33.4, Red Cell Distribution Width 12.5, Platelet Count 137L, Mean Platelet Volume 10.2H, Neutrophils (%) (Auto) 65.2, Lymphocytes (%) (Auto) 24.2, Monocytes (%) (Auto) 7.3, Eosinophils (%) (Auto) 2.5, Basophils (%) (Auto) 0.9, Sodium Level 142, Potassium Level 4.3, Chloride Level 109H, Carbon Dioxide Level 28, Anion Gap 5, Blood Urea Nitrogen 13, Creatinine 0.6, Estimat Glomerular Filtration Rate , Glucose Level 162H, Calcium Level 7.8L Current Medications Medications (Trade) Dose Ordered Sig/Singh Route PRN Reason Start Time Stop Time Status Last Admin Dose Admin Acetaminophen (Tylenol) 650 mg Q4H PRN GT Mild Pain/Temp > 100.5 03/09/19 20:30 04/08/19 20:29 03/15/19 10:09 Chlorhexidine Gluconate (Azra-Hex 2%) 1 applic DAILY@2000 TOPIC 03/10/19 20:00 04/09/19 19:59 03/15/19 20:28 Dextrose (Dextrose 50%) 25 ml Q30M PRN IV Hypoglycemia 03/09/19 21:00 04/08/19 20:59 Dextrose (Dextrose 50%) 50 ml Q30M PRN IV Hypoglycemia 03/09/19 21:00 04/08/19 20:59 Dextrose/ Electrolytes 1,000 ml @ 50 mls/hr Q20H IV 03/12/19 14:53 04/09/19 14:52 03/15/19 15:05 Fentanyl Citrate 1000 mcg/Sodium Chloride 100 ml @ 0 mls/hr Q24H IV 03/09/19 20:53 03/16/19 20:52 03/11/19 21:47 Insulin Aspart (NovoLOG) EVERY 6 HOURS SUBQ 03/10/19 00:00 04/09/19 00:00 03/16/19 12:23 Lorazepam (Ativan 2mg/ml 1ml) 0.5 mg Q4H PRN IV seizure 03/14/19 20:45 03/19/19 20:44 03/15/19 10:09 Meropenem 1 gm/ Sodium Chloride 55 ml @ 110 mls/hr Q12H IVPB 03/15/19 12:00 03/19/19 11:59 03/16/19 12:22 Norepinephrine Bitartrate 8 mg/ Dextrose 250 ml @ 0 mls/hr Q24H IV 03/09/19 21:00 04/08/19 20:59 03/11/19 23:19 Pantoprazole (Protonix) 40 mg DAILY IVP 03/10/19 09:00 04/09/19 08:59 03/16/19 09:18 Phenytoin (Dilantin) 125 mg Q12HR GT 03/09/19 21:00 04/08/19 20:59 03/16/19 09:18 Quetiapine Fumarate (SEROquel) 25 mg DAILYPRN PRN ORAL agitation 03/14/19 19:00 04/13/19 18:59 Vancomycin HCl (Vanco rx to dose) 1 ea DAILY PRN MISC Per rx protocol 03/09/19 20:30 04/08/19 20:29 Vancomycin HCl 1 gm/Sodium Chloride 275 ml @ 183.708 mls/hr Q24H IVPB 03/15/19 22:00 03/20/19 21:59 03/15/19 20:29 Fernando Franks MD March 16, 2019 12:32
--- NOTE | 2019-03-16 15:38 | Nephrology Progress Note ---
Assessment/Plan Assessment 1) Hypernatremia ghas resolved 2) coag + staph bacteremia ? source 3) S/P respiratory failure on the Vent 4) ? CHF Plan: Continue D5w at 50cc/hr IV ATB Will give Lasix 60 mg IV x1 Subjective Subjective She is still on the vent, She is edematous, some diuresis but not negative I/O, failed weaning from vent again Objective Objective Last 24 Hour Vital Signs Date Time Temp Pulse Resp B/P (MAP) Pulse Ox O2 Delivery O2 Flow Rate FiO2 03/16/19 14:30 70 18 30 03/16/19 14:00 69 17 118/56 (76) 22 03/16/19 13:24 70 30 30 03/16/19 13:00 70 17 128/58 (81) 100 03/16/19 12:00 71 03/16/19 12:00 30 03/16/19 12:00 99.3 71 19 119/43 (68) 100 03/16/19 12:00 Mechanical Ventilator Mechanical Ventilator 03/16/19 11:10 69 23 30 03/16/19 11:00 69 19 107/43 (64) 100 03/16/19 10:00 72 20 112/45 (67) 100 03/16/19 09:00 68 18 120/46 (70) 100 03/16/19 08:43 68 12 30 03/16/19 08:00 69 03/16/19 08:00 99.6 66 16 110/48 (68) 100 03/16/19 08:00 30 03/16/19 08:00 Mechanical Ventilator Mechanical Ventilator 03/16/19 07:15 68 16 30 03/16/19 07:00 71 18 128/58 (81) 100 03/16/19 06:00 68 16 119/50 (73) 100 03/16/19 05:24 72 16 30 35 03/16/19 05:00 78 18 158/60 (92) 100 03/16/19 04:00 98.3 68 16 115/48 (70) 100 03/16/19 04:00 Mechanical Ventilator Mechanical Ventilator 03/16/19 04:00 74 03/16/19 04:00 35 03/16/19 03:11 70 16 30 35 03/16/19 03:00 72 16 121/48 (72) 100 03/16/19 02:00 69 17 119/49 (72) 100 03/16/19 01:00 72 16 120/53 (75) 100 03/16/19 00:43 71 16 30 35 03/16/19 00:00 72 03/16/19 00:00 Mechanical Ventilator Mechanical Ventilator 03/16/19 00:00 35 03/16/19 00:00 99.1 71 16 122/62 (82) 100 03/15/19 23:00 66 20 102/43 (62) 100 03/15/19 22:45 67 16 30 35 03/15/19 22:00 65 20 92/35 (54) 100 03/15/19 21:00 72 20 127/49 (75) 100 03/15/19 20:41 71 18 30 35 03/15/19 20:29 127/82 03/15/19 20:00 35 03/15/19 20:00 98.2 75 16 122/46 (71) 100 03/15/19 20:00 Mechanical Ventilator Mechanical Ventilator 03/15/19 20:00 80 03/15/19 19:06 69 19 30 35 03/15/19 19:00 70 19 127/82 (97) 100 03/15/19 18:00 70 29 125/54 (77) 100 03/15/19 17:20 74 16 35 03/15/19 17:00 69 16 103/46 (65) 100 03/15/19 16:00 Mechanical Ventilator Mechanical Ventilator 03/15/19 16:00 70 03/15/19 16:00 35 03/15/19 16:00 98.5 74 20 123/55 (77) 100 Intake and Output 03/15/19 03/16/19 19:00 07:00 Intake Total 1380 ml 1650 ml Output Total 520 ml 1810 ml Balance 860 ml -160 ml IV Total 660 ml 930 ml Tube Feeding 720 ml 720 ml Output Urine Total 520 ml 1810 ml Laboratory Tests 03/16/19 04:30: White Blood Count 6.5, Red Blood Count 2.38L, Hemoglobin 8.0L, Hematocrit 23.9L , Mean Corpuscular Volume 100H, Mean Corpuscular Hemoglobin 33.5H, Mean Corpuscular Hemoglobin Concent 33.4, Red Cell Distribution Width 12.5, Platelet Count 137L, Mean Platelet Volume 10.2H, Neutrophils (%) (Auto) 65.2, Lymphocytes (%) (Auto) 24.2, Monocytes (%) (Auto) 7.3, Eosinophils (%) (Auto) 2.5, Basophils (%) (Auto) 0.9, Sodium Level 142, Potassium Level 4.3, Chloride Level 109H, Carbon Dioxide Level 28, Anion Gap 5, Blood Urea Nitrogen 13, Creatinine 0.6, Estimat Glomerular Filtration Rate , Glucose Level 162H, Calcium Level 7.8L Height (Feet): 5 Height (Inches): 8.00 Weight (Pounds): 150 General Appearance: WD/WN, other - on the vent EENT: PERRL/EOMI Neck: non-tender, normal alignment Cardiovascular: normal rate, regular rhythm Respiratory/Chest: crackles/rales Abdomen: normal bowel sounds, non tender, soft Extremities: non-tender Neurologic: alert Ulisses Tello MD March 16, 2019 15:38
--- NOTE | 2019-03-16 16:01 | Consultation ---
Consult Note Assessment/Plan DICT # [id number] Pancho Briscoe MD March 16, 2019 16:01
[2019-03-16] MEDS: D5W w/KCl 20mEq 1,000 ML IV SCH (17:22)
--- NOTE | 2019-03-16 17:59 | Neurology Progress Note ---
Interim History Interim History ROS Limited/Unobtainable: Yes Complaints: AMS Events: Additional Pulm Consult and 2 new failed vent trials Objective Physical Exam Last Vital Signs Date Time Temp Pulse Resp B/P (MAP) Pulse Ox O2 Delivery O2 Flow Rate FiO2 03/16/19 17:02 78 36 30 03/16/19 17:00 143/59 (87) 100 03/16/19 16:00 98.9 03/16/19 16:00 Mechanical Ventilator Mechanical Ventilator 03/10/19 08:55 50.0 Laboratory Tests Test 03/16/19 04:30 White Blood Count 6.5 K/UL (4.8-10.8) Red Blood Count 2.38 M/UL (4.20-5.40) L Hemoglobin 8.0 G/DL (12.0-16.0) L Hematocrit 23.9 % (37.0-47.0) L Mean Corpuscular Volume 100 FL (80-99) H Mean Corpuscular Hemoglobin 33.5 PG (27.0-31.0) H Mean Corpuscular Hemoglobin Concent 33.4 G/DL (32.0-36.0) Red Cell Distribution Width 12.5 % (11.6-14.8) Platelet Count 137 K/UL (150-450) L Mean Platelet Volume 10.2 FL (6.5-10.1) H Neutrophils (%) (Auto) 65.2 % (45.0-75.0) Lymphocytes (%) (Auto) 24.2 % (20.0-45.0) Monocytes (%) (Auto) 7.3 % (1.0-10.0) Eosinophils (%) (Auto) 2.5 % (0.0-3.0) Basophils (%) (Auto) 0.9 % (0.0-2.0) Sodium Level 142 MMOL/L (136-145) Potassium Level 4.3 MMOL/L (3.5-5.1) Chloride Level 109 MMOL/L (98-107) H Carbon Dioxide Level 28 MMOL/L (21-32) Anion Gap 5 mmol/L (5-15) Blood Urea Nitrogen 13 mg/dL (7-18) Creatinine 0.6 MG/DL (0.55-1.30) Estimat Glomerular Filtration Rate mL/min (>60) Glucose Level 162 MG/DL (74-106) H Calcium Level 7.8 MG/DL (8.5-10.1) L General: well developed, well nourished Head: normocophalic, atraumatic Neck: no rigidity EENT: benign Neurologic Exam Mental Status: awake Cranial Nerve II: no papilledema Cranial Nerves III, IV, : PERRLA, EOMI Cranial Nerve VIII: normal hearing Cranial Nerve XII: tongue midline Motor System: other - Right sided hemiplegia with TF in leg and min withdrawal at shoulder / Left sided w/d and apparent full strength to noxious stimuli Sensory: other - Some indication of paresthesia requiring increased noxious stimuli on right side Objective Remains intubated on ventilator, with gag reflex, frequently chewing ETT and moving tongue around. Right facial weakness of whole face, including eye. Possible sensory loss on right side due to need for increased noxious stimulus to induce response. Right side plegic, with slight movement proximally > distally. Left side w/d and UE now in restraints Impression/Recommendations Problems: (1) Acute encephalopathy Assessment & Plan: Improved exam today- no sedation and tracking with eyes for first day. Still not following commands. Vent weaning trial again tomorrow. (2) Septic shock (3) Respiratory failure (4) Dementia (5) Altered level of consciousness (6) CVA, old, hemiparesis Assessment & Plan: CT Brain 03/09/19: Old left parietal and occipital infarct Moderate atrophy of the brain. 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 (7) Diabetes Status: stable Diagnostic Impression MRI ordered to rule out acute stroke as cause of increased AMS and respiratory failure but unable to obtain at this time due to ventilatory status Wean Vent as able - failed trials x 2, now off sedation with increased lethargy on exam. RECOMMEND ABG at this time to make vent adjustments for possible hypoxia/ hypoxemia. Maintain Normoglycemia with ISS May start ASA HgB> 8 - dropping on CBC, track and trend Maintain normoglycemia with ISS MRI when off vent Continue enteral feeding SBP< 140 Folate replacement recommended Recommendations Q 2 hour neuro obs Abx as needed Will likely need Tracheostomy as unable to be weaned off vent at this time. please avoid benzos, opioids, anticholinergic drugs if the goal of treatment is to wean- Discuss goals of care with family - DNR vs hospice vs terminal extubation Seroquel 25mg QD PRN for agitation- can be increased if necessary Continue Phenytoin but no indication for increased dosage or addition of second line AED This was a critical care note. Critical care time of 45 minutes, was performed in order to assess and manage the high probability of imminent or life threatening deterioration to respiratory/neurologic function, with frequent reassessment and excludes all billable procedures. Ngozi Franklin N.P. March 16, 2019 17:59
--- NOTE | 2019-03-16 19:11 | Cardiology Progress Note ---
Assessment/Plan Assessment/Plan 1. Hypernatremia free water deficit 2. Likely demand ischemia 3. Metabolic alkalosis. 4. altered mentation secondary to above. 5. Anemia, mild. 6. History of seizures. 7. Diabetes history. 8. Hypertension history. 9. hs of diastolic failure 10.New LV systolic dysfunction ? 11. bactermia 12 edema bp is higer to day remain on the vent failed weaning 03/10 echo report noted some echo views were reviewed may not have as bad an lv function as reported atlhgouh the images are not typical stress induced cm may be in the differential on iv abx continue vent support not tachy hemodynamic are better tele monitor sinus on iv abx diuretics remains on free water d/w rn Subjective ROS Limited/Unobtainable: Yes Objective Last 24 Hour Vital Signs Date Time Temp Pulse Resp B/P (MAP) Pulse Ox O2 Delivery O2 Flow Rate FiO2 03/16/19 18:00 73 20 136/53 (80) 100 03/16/19 17:02 78 36 30 03/16/19 17:00 78 20 143/59 (87) 100 03/16/19 16:00 30 03/16/19 16:00 71 03/16/19 16:00 98.9 70 22 129/53 (78) 100 03/16/19 16:00 Mechanical Ventilator Mechanical Ventilator 03/16/19 15:00 71 18 129/55 (79) 100 03/16/19 14:30 70 18 30 03/16/19 14:00 69 17 118/56 (76) 22 03/16/19 13:24 70 30 30 03/16/19 13:00 70 17 128/58 (81) 100 03/16/19 12:00 71 03/16/19 12:00 30 03/16/19 12:00 99.3 71 19 119/43 (68) 100 03/16/19 12:00 Mechanical Ventilator Mechanical Ventilator 03/16/19 11:10 69 23 30 03/16/19 11:00 69 19 107/43 (64) 100 03/16/19 10:00 72 20 112/45 (67) 100 03/16/19 09:00 68 18 120/46 (70) 100 03/16/19 08:43 68 12 30 03/16/19 08:00 69 03/16/19 08:00 99.6 66 16 110/48 (68) 100 03/16/19 08:00 30 03/16/19 08:00 Mechanical Ventilator Mechanical Ventilator 03/16/19 07:15 68 16 30 03/16/19 07:00 71 18 128/58 (81) 100 03/16/19 06:00 68 16 119/50 (73) 100 03/16/19 05:24 72 16 30 35 03/16/19 05:00 78 18 158/60 (92) 100 03/16/19 04:00 98.3 68 16 115/48 (70) 100 03/16/19 04:00 Mechanical Ventilator Mechanical Ventilator 03/16/19 04:00 74 03/16/19 04:00 35 03/16/19 03:11 70 16 30 35 03/16/19 03:00 72 16 121/48 (72) 100 03/16/19 02:00 69 17 119/49 (72) 100 03/16/19 01:00 72 16 120/53 (75) 100 03/16/19 00:43 71 16 30 35 03/16/19 00:00 72 03/16/19 00:00 Mechanical Ventilator Mechanical Ventilator 03/16/19 00:00 35 03/16/19 00:00 99.1 71 16 122/62 (82) 100 03/15/19 23:00 66 20 102/43 (62) 100 03/15/19 22:45 67 16 30 35 03/15/19 22:00 65 20 92/35 (54) 100 03/15/19 21:00 72 20 127/49 (75) 100 03/15/19 20:41 71 18 30 35 03/15/19 20:29 127/82 03/15/19 20:00 35 03/15/19 20:00 98.2 75 16 122/46 (71) 100 03/15/19 20:00 Mechanical Ventilator Mechanical Ventilator 03/15/19 20:00 80 General Appearance: no apparent distress, on vent, patient on isolation Cardiovascular: normal rate Respiratory/Chest: lungs clear - ant Abdomen: normal bowel sounds, non tender, soft Extremities: no swelling Intake and Output 03/15/19 03/16/19 19:00 07:00 Intake Total 1380 ml 1650 ml Output Total 520 ml 1810 ml Balance 860 ml -160 ml IV Total 660 ml 930 ml Tube Feeding 720 ml 720 ml Output Urine Total 520 ml 1810 ml Laboratory Tests Test 03/16/19 04:30 White Blood Count 6.5 K/UL (4.8-10.8) Red Blood Count 2.38 M/UL (4.20-5.40) L Hemoglobin 8.0 G/DL (12.0-16.0) L Hematocrit 23.9 % (37.0-47.0) L Mean Corpuscular Volume 100 FL (80-99) H Mean Corpuscular Hemoglobin 33.5 PG (27.0-31.0) H Mean Corpuscular Hemoglobin Concent 33.4 G/DL (32.0-36.0) Red Cell Distribution Width 12.5 % (11.6-14.8) Platelet Count 137 K/UL (150-450) L Mean Platelet Volume 10.2 FL (6.5-10.1) H Neutrophils (%) (Auto) 65.2 % (45.0-75.0) Lymphocytes (%) (Auto) 24.2 % (20.0-45.0) Monocytes (%) (Auto) 7.3 % (1.0-10.0) Eosinophils (%) (Auto) 2.5 % (0.0-3.0) Basophils (%) (Auto) 0.9 % (0.0-2.0) Sodium Level 142 MMOL/L (136-145) Potassium Level 4.3 MMOL/L (3.5-5.1) Chloride Level 109 MMOL/L (98-107) H Carbon Dioxide Level 28 MMOL/L (21-32) Anion Gap 5 mmol/L (5-15) Blood Urea Nitrogen 13 mg/dL (7-18) Creatinine 0.6 MG/DL (0.55-1.30) Estimat Glomerular Filtration Rate mL/min (>60) Glucose Level 162 MG/DL (74-106) H Calcium Level 7.8 MG/DL (8.5-10.1) L Allen Bliss MD March 16, 2019 19:11
--- NOTE | 2019-03-16 19:30 | Consultation ---
DATE OF CONSULTATION: 03/16/2019 PULMONARY AND CRITICAL CARE SECOND OPINION CONSULTATION REFERRING PHYSICIAN: Fernando Franks M.D. REASON FOR CONSULTATION: Additional pulmonary opinion with respect to feasibility of extubation. HISTORY OF PRESENT ILLNESS: The patient is an 88-year-old female with a history of prior CVA with baseline right hemiplegia, bedbound, status post PEG, dementia, hypertension, hyperlipidemia, atrial fibrillation, CKD, CAD status post prior NV, seizure disorder, and diabetes, who was transferred to the hospital on 03/09/2019 for respiratory distress. She was intubated in the ER. Chest x-ray showed some faint lower lobe predominant infiltrates. At that time, the patient had Providencia pneumonia in the sputum, was intubated in the ER. The patient was hypernatremic with severe dehydration, which has since been treated with , initially on pressors. Echo on presentation showed some questionable new LV dysfunction. The patient also had coag-negative Staph bacteremia, which was thought to possibly represent a contaminant. The patient tolerated spontaneous breathing for a few hours per report though this is not documented yesterday. Per the family, the patient was on pressure support of 16 or 18 for few hours. Per my discussion with the RN and respiratory, the patient failed yesterday secondary to low lung volumes and tachypnea. Nonetheless, overnight the patient bit her ET tube and tube exchange had to be done. She received succinylcholine and etomidate around 10 p.m. no further sedatives were received over night. She has now been intubated for total of 7 days with failing weaning trials. They are ongoing discussions regarding tracheostomy versus further attempts at extubation. Furthermore, the family feels that the tracheostomy may be burdensome on the patient as would be any other procedure. She is still Full Code, but they are having ongoing discussions regarding overall goals of care. She has been afebrile with stable vital signs. Her T-max over the past 24 hours is 99.6. She is on the ventilator AC mode, volume 350, PEEP of 5, FiO2 of 30%, set rate of 18. Breathing slightly above the set rate. During my examination, I placed her on CPAP initially with a pressure support of 12, which she could not tolerate but at pressure support of 16, she was bringing in volumes of around 200 for approximately 1 minute after which tidal volumes dropped and she became more and more tachypneic. Per ICU records, the patient inputs and outputs for the hospital . It must be noted that when she came in her sodium was 170. Her sodium is now 142. She did receive a dose of Lasix yesterday by Dr. Tello and her Lasix dose has since been discontinued. PAST MEDICAL HISTORY: 1. Prior left parietal CVA with right hemiplegia at baseline. 2. Dementia/multi-infarct dementia. 3. CAD, status post prior NV. 4. Hypertension. 5. Hyperlipidemia. 6. Atrial fibrillation. 7. CKD. 8. Seizure disorder. 9. Diabetes. 10. Bedbound at baseline, SNF resident for 3 years. 11. Dysphagia, status post gastrostomy tube. ALLERGIES: Penicillin, sulfa, sulfacetamide. MEDICATIONS: Prior to admission medications acetaminophen, albuterol, Lipitor, Dulcolax, Catapres, cranberry, Colace, Lasix, Humulin, Keppra, lisinopril, metoprolol, multivitamin, omeprazole, Dilantin, and vitamin C. Current medications (reviewed from the order list) meropenem, vancomycin, acetaminophen, chlorhexidine, furosemide 60 IV x1 today, sliding scale insulin, Ativan, Protonix 40 mg IV daily, phenytoin via G-tube, Seroquel 25 as needed, and vancomycin. SOCIAL HISTORY: She has a supportive family. She is a nursing facility resident, bedbound at baseline, G-tube dependent. As stated, she communicates via nodding. FAMILY HISTORY: Noncontributable. REVIEW OF SYSTEMS: Unobtainable. PHYSICAL EXAMINATION: VITAL SIGNS: T-max 99.3, pulse 71, blood pressure 119/43, respiratory rate 19, saturating 100% on the ventilator. GENERAL: She is sedated, but arouses to sternal rub. She is intubated. She has ET tube. HEENT: Normocephalic and atraumatic. ET tube is noted. Oropharynx is clear. NECK: Supple without lymphadenopathy. An 8 cm jugular venous distention. She has a right IJ central venous catheter. CHEST: Clear. Distant with bibasilar rales. HEART: Regular rate and rhythm. ABDOMEN: Soft, nontender, and nondistended. Gastrostomy is clean, dry, and intact. EXTREMITIES: No cyanosis, clubbing. There is 1+ edema. ANCILLARY DATA: Laboratories reviewed in entirety. Most recently, white count 6.5, hemoglobin 8, and platelet count 137. ABG from 03/14/2019 7.46/34/110/24/97. INR is 1.1. Chemistry, sodium 142, potassium 4.3, chloride 109, bicarb 28, BUN 13, creatinine 0.6, glucose 162, calcium 7.8. Magnesium 2.5, total bilirubin 0.2, AST 28, ALT 10, alkaline phosphatase 74. BNP 2790. Total protein 5.4, albumin 1.5, globulin 3.9. Urinalysis from 03/11/2019 2+ protein 1+, blood 1+ leukocyte esterase. Culture data on 03/09/2019, blood culture x2 10/28 coag-negative staph, / staph coccal epidermidis. MRSA screen negative. VRE screen negative. On 03/09/2019, sputum culture, Providencia, [place] and usual respiratory [place]. On 03/11/2019 urine with E coli. IMAGING: On 03/09/2019, CT of the head shows no acute intracranial bleed, mass effect or edema. Old left parietal occipital infarct is noted. Moderate brain atrophy. Extensive chronic small vessel disease involving the white matter tracts. On 03/09/2019 (admission) chest x-ray essentially normal with some few scattered bibasilar opacities. On 03/09/2019, x-ray #2 is post intubation with ET tube in good position. X-ray #3 on the day same is post right IJ placement. On 03/09/2019 duplex no evidence of DVT bilaterally. On 03/12/2019, chest x-ray shows some mild pulmonary vascular congestion. On 03/15/2019, chest x-ray is unchanged. On , chest x-ray shows ET tube in good position. Please note, (this is post ET tube exchange) and mild pulmonary vascular congestion with a small right pleural effusion. On 03/10/2019, echo report global LV hypokinesis with anteroseptal, basal to mid akinesis, mild LV enlargement, LVEF of 25 to 30%, mild LVH, mild thickened mitral leaflets, mild mitral anulus and aortic root calcifications, pulmonic valve not well visualized. IVC collapsible. Grade 1 diastolic dysfunction. Trace MR, mild TR. Peak RV pressure of 13. ASSESSMENT: The patient is an very unfortunate 88-year-old female care home resident with prior CVA with baseline right hemiplegia, multi-infarct dementia, hypertension, hyperlipidemia, atrial fibrillation, CKD, CAD, seizure disorder, diabetes, who is now day #7 status post intubation for respiratory distress and likely healthcare associated tracheobronchitis/early pneumonia with evidence of Providencia pneumonia. The patient has had difficulty weaning off the ventilator and given her multiple comorbidities, I suspect that she will ultimately require tracheostomy if it is indeed within goals of care. The patient's family had several concerns that were addressed. We also went over the process of spontaneous breathing trial and extubation criteria. Insurance Service Representative Dr. Tello was at bedside at the time of my evaluation. We both felt the patient would benefit from additional diuresis. All attempts will be made to hold sedation overnight and repeat spontaneous breathing trial in the morning. If the patient does indeed pass her breathing trial, a trial of extubation would be reasonable. However, I explained to the patient's family that if she is unable to be weaned in the next 1 to 2 days, the medically appropriate thing to do is tracheostomy. That being said, if the tracheostomy is too burdensome on the patient based on her overall goals of care, then the entire plan needs to be reassessed including her Code Status. PROBLEM LIST: 1. Ventilator-dependent respiratory failure. 2. Difficulty to wean. 3. Providencia pneumonia/tracheobronchitis. 4. E. coli urinary tract infection. 5. Coag-negative Staph bloodstream infection, questionable contaminant. 6. Systemic inflammatory response syndrome/shock, resolved. 7. Dehydration, hypernatremia, resolved. 8. Congestive heart failure with systolic dysfunction and acute decompensated heart failure. 9. CVA, left parietal with baseline right hemiplegia. 10. Multi-infarct dementia. 11. Bedbound at baseline. 12. Dysphagia, status post G-tube. 13. Hypertension, hyperlipidemia, CAD, status post prior NV. 14. Seizure disorder. 15. Diabetes. 16. Severe protein-calorie malnutrition. 17. Anemia. TREATMENT PLAN: 1. Continue ventilatory support. 2. Trial at extubation, spontaneous breathing trial in a.m. 3. I explained to the patient's family that if she fails extubation in the next 1 to 2 days, a tracheostomy tube would be medically appropriate. 4. I also explained to the patient's family that post tracheostomy we would continue weaning attempt and that weaning itself may be facilitated by the process of tracheostomy. 5. Monitor volumes and renal function, agree with additional diuresis. 6. Minimize sedatives. 7. Continue antibiotics (the patient is on vancomycin and meropenem) per ID. 8. DVT prophylaxis, SCDs. 9. Continue tube feeds as tolerated. 10. The patient is Full Code, [place] importance will be ongoing discussions of goals of care. It seems that there are conflicting thoughts in the family, but ultimately a tracheostomy is too burdensome, the patient should truly be DNAR. 11. Continue excellent pulmonary and critical care per Dr. Franks. Dr. Franks, thank you for allowing me to assist in care of your patient. If I may be of any assistance in the care of this patient, please do not hesitate to ask. Case discussed with Dr. Franks, ICU attending, and ICU team. Pancho Briscoe M.D. DR: Altagracia JOB#: [id number] CC:
[2019-03-16] MEDS: Vancomycin 1 GM in NS 275 ML IVPB SCH (21:11)
[2019-03-16] MEDS: Dyna-Hex 2% Top Sol 2oz TOPIC SCH (21:11)
[2019-03-17] VITALS (24 sets, daily range): BP systolic 100–158; BP diastolic 37–109
--- NOTE | 2019-03-17 02:07 | Neurology Progress Note ---
Interim History Interim History ROS Limited/Unobtainable: Yes Complaints: AMS Events: No new events Review of Systems Neuro Review of Systems Stable exam All Systems: reviewed and negative except above Objective Physical Exam Last Vital Signs Date Time Temp Pulse Resp B/P (MAP) Pulse Ox O2 Delivery O2 Flow Rate FiO2 03/17/19 00:48 83 28 30 03/17/19 00:00 Mechanical Ventilator Mechanical Ventilator 03/16/19 23:00 130/49 (76) 100 03/16/19 20:00 99.4 03/10/19 08:55 50.0 Laboratory Tests Test 03/16/19 04:30 White Blood Count 6.5 K/UL (4.8-10.8) Red Blood Count 2.38 M/UL (4.20-5.40) L Hemoglobin 8.0 G/DL (12.0-16.0) L Hematocrit 23.9 % (37.0-47.0) L Mean Corpuscular Volume 100 FL (80-99) H Mean Corpuscular Hemoglobin 33.5 PG (27.0-31.0) H Mean Corpuscular Hemoglobin Concent 33.4 G/DL (32.0-36.0) Red Cell Distribution Width 12.5 % (11.6-14.8) Platelet Count 137 K/UL (150-450) L Mean Platelet Volume 10.2 FL (6.5-10.1) H Neutrophils (%) (Auto) 65.2 % (45.0-75.0) Lymphocytes (%) (Auto) 24.2 % (20.0-45.0) Monocytes (%) (Auto) 7.3 % (1.0-10.0) Eosinophils (%) (Auto) 2.5 % (0.0-3.0) Basophils (%) (Auto) 0.9 % (0.0-2.0) Sodium Level 142 MMOL/L (136-145) Potassium Level 4.3 MMOL/L (3.5-5.1) Chloride Level 109 MMOL/L (98-107) H Carbon Dioxide Level 28 MMOL/L (21-32) Anion Gap 5 mmol/L (5-15) Blood Urea Nitrogen 13 mg/dL (7-18) Creatinine 0.6 MG/DL (0.55-1.30) Estimat Glomerular Filtration Rate mL/min (>60) Glucose Level 162 MG/DL (74-106) H Calcium Level 7.8 MG/DL (8.5-10.1) L General: well developed, well nourished Head: normocophalic, atraumatic Neck: no rigidity EENT: benign Neurologic Exam Mental Status: awake Cranial Nerve II: no papilledema Cranial Nerves III, IV, : PERRLA, EOMI Cranial Nerve VIII: normal hearing Cranial Nerve XII: tongue midline Motor System: other - Right sided hemiplegia with TF in leg and min withdrawal at shoulder / Left sided w/d and apparent full strength to noxious stimuli Sensory: other - Some indication of paresthesia requiring increased noxious stimuli on right side Gait: normal regular Objective Remains intubated on ventilator, with gag reflex, frequently chewing ETT and moving tongue around. She is now making meaningful eye contact and tracking with her eyes. As per her granddaughter, she is now approximately back to her baseline - which was tracking people with her eyes, moving/ turning her head, she could be sounds but no formal speech. 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 Right facial weakness of whole face, including eye. Possible sensory loss on right side due to need for increased noxious stimulus to induce response. Right side plegic, with slight movement proximally > distally. Left side w/d and UE now in restraints because exhibiting full strength Impression/Recommendations Problems: (1) Acute encephalopathy Assessment & Plan: Still not following commands. As per granddaughter - she does not do this at baseline She is closer to her baseline but lethargic. (2) Septic shock (3) Respiratory failure (4) Dementia (5) Altered level of consciousness (6) CVA, old, hemiparesis Assessment & Plan: CT Brain 03/09/19: Old left parietal and occipital infarct Moderate atrophy of the brain. 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 (7) Diabetes Status: stable Diagnostic Impression MRI ordered to rule out acute stroke as cause of increased AMS and respiratory failure but unable to obtain at this time due to ventilatory status Wean Vent as able - failed trials x 2, now off sedation with increased lethargy on exam. Maintain Normoglycemia with ISS May start ASA HgB> 8 - dropping on CBC, track and trend Maintain normoglycemia with ISS Continue enteral feeding SBP< 140 Discussion with family regarding goals of care Recommendations Q 2 hour neuro obs Abx as needed Will likely need Tracheostomy as unable to be weaned off vent at this time. please avoid benzos, opioids, anticholinergic drugs if the goal of treatment is to wean- Discuss goals of care with family - DNR vs hospice vs terminal extubation Seroquel 25mg QD PRN for agitation- can be increased if necessary Continue Phenytoin but no indication for increased dosage or addition of second line AED This was a critical care note. Critical care time of 45 minutes, was performed in order to assess and manage the high probability of imminent or life threatening deterioration to respiratory/neurologic function, with frequent reassessment and excludes all billable procedures. Ngozi Franklin N.P. March 17, 2019 02:07
[2019-03-17] MEDS: NovoLOG Insulin Flexpen SUBQ SCH ×3 (05:41→18:27)
[2019-03-17] MEDS: Phenytoin Susp 100mg/4ml GT SCH ×2 (08:45→21:19)
[2019-03-17] MEDS: Pantoprazole Inj IVP SCH (08:45)
--- NOTE | 2019-03-17 11:32 | Diagnostic Imaging Report ---
Indication: Dyspnea Comparison: 03/15/2019 A single view chest radiograph was obtained. Findings: Vascular congestion demonstrated. Tubes and lines are stable. Heart size is mildly enlarged and stable. Small right pleural effusion suspected. IMPRESSION: No change from the previous examination. Suspected CHF
--- NOTE | 2019-03-17 12:37 | Infectious Diseases Prog Note ---
Assessment/Plan Assessment/Plan ASSESSMENT/PLAN: 1. 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 Respiratory failure, on vent. 3. Diabetes. 4. Hypertension. 5. Blood sugar and blood pressure treatment per primary for diabetes and hypertension. 6. Atrial fibrillation. 7. Heart failure. 8. G-tube. 9. Skin care protocol. 10. Cardiomegaly. 11. CAD and [place]. 12. Hyperlipidemia. 13. Seizure disorder. 14. GERD. 15. History of CVA. 16. Allergic to penicillin and sulfa, tolerates meropenem. 17. Social history is negative. 18. Family history is noncontributory. 19. MAR is noted. 20. Case discussed with Dr. Franks. 21. Continue treatment per primary consultants. Subjective Constitutional: Reports: fatigue, other - on vent, no pressors ; Denies: fever HEENT: Reports: congestion Respiratory: Reports: shortness of breath Cardiovascular: Denies: chest pain Gastrointestinal/Abdominal: Denies: nausea, vomiting, diarrhea Genitourinary: Reports: other - + macias Neurologic: Reports: weakness, other - lethargic, weakness Psychiatric: Reports: other - na Skin: Denies: rash Hematologic: Denies: bleeding Musculoskeletal: Reports: other - na Allergies: Coded Allergies: PENICILLINS (Verified Allergy, Unknown, 02/04/18) SULFA (SULFONAMIDE ANTIBIOTICS) (Verified Allergy, Unknown, 02/04/18) SULFACETAMIDE (Unverified Allergy, Unknown, 06/24/18) Objective Vital Signs Last 24 Hour Vital Signs Date Time Temp Pulse Resp B/P (MAP) Pulse Ox O2 Delivery O2 Flow Rate FiO2 03/17/19 10:40 73 17 30 03/17/19 09:00 100 03/17/19 08:50 77 22 30 03/17/19 08:00 30 03/17/19 08:00 Mechanical Ventilator Mechanical Ventilator 03/17/19 08:00 77 03/17/19 08:00 98.8 78 13 135/66 (89) 100 03/17/19 07:02 76 17 30 03/17/19 07:00 75 13 133/65 (87) 100 03/17/19 06:00 76 13 138/67 (90) 100 03/17/19 05:09 78 19 30 03/17/19 05:00 78 15 120/58 (78) 100 03/17/19 04:00 Mechanical Ventilator Mechanical Ventilator 03/17/19 04:00 98.5 78 18 124/50 (74) 100 03/17/19 04:00 80 03/17/19 04:00 30 03/17/19 03:06 84 17 30 03/17/19 03:00 84 18 130/51 (77) 100 03/17/19 02:00 103 24 158/106 (123) 100 03/17/19 01:00 82 19 132/46 (74) 100 03/17/19 00:48 83 28 30 03/17/19 00:00 Mechanical Ventilator Mechanical Ventilator 03/17/19 00:00 99.0 73 22 142/109 (120) 100 03/16/19 23:00 74 16 130/49 (76) 100 03/16/19 22:46 74 18 30 03/16/19 22:00 74 20 130/47 (74) 100 03/16/19 21:08 69 20 30 03/16/19 21:00 69 16 123/47 (72) 100 03/16/19 20:00 30 03/16/19 20:00 99.4 71 16 126/48 (74) 100 03/16/19 20:00 Mechanical Ventilator Mechanical Ventilator 03/16/19 20:00 69 03/16/19 19:08 73 18 30 03/16/19 19:00 74 20 124/49 (74) 100 03/16/19 18:00 73 20 136/53 (80) 100 03/16/19 17:02 78 36 30 03/16/19 17:00 78 20 143/59 (87) 100 03/16/19 16:00 30 03/16/19 16:00 71 03/16/19 16:00 98.9 70 22 129/53 (78) 100 03/16/19 16:00 Mechanical Ventilator Mechanical Ventilator 03/16/19 15:00 71 18 129/55 (79) 100 03/16/19 14:30 70 18 30 03/16/19 14:00 69 17 118/56 (76) 22 03/16/19 13:24 70 30 30 03/16/19 13:00 70 17 128/58 (81) 100 Height (Feet): 5 Height (Inches): 8.00 Weight (Pounds): 148 General Appearance: other - on vent, no pressors, opens eyes HEENT: normocephalic, atraumatic, anicteric Respiratory/Chest: crackles/rales, rhonchi - bilaterally, other - on vent Cardiovascular: normal rate, regular rhythm, no gallop/murmur, no JVD Abdomen: normal bowel sounds, soft, non tender, no organomegaly, non distended Genitourinary: other - + macias - urine slt cloudy Extremities: no cyanosis Skin: no rash Neurologic/Psychiatric: needle grinder II-XII grossly normal, alert, responsive Lymphatic: no neck adenopathy Musculoskeletal: no effusion Objective Chest x-ray - 03/15 - Comparison: 03/12/2019 A single view chest radiograph was obtained. Findings: Endotracheal tube and right jugular line are stable. Mild pulmonary vascular congestion suspected. IMPRESSION: No change from the prior exam. Mild CHF suspected Chest x-ray - 03/17/19 - Comparison: 03/15/2019 A single view chest radiograph was obtained. Findings: Vascular congestion demonstrated. Tubes and lines are stable. Heart size is mildly enlarged and stable. Small right pleural effusion suspected. IMPRESSION: No change from the previous examination. Suspected CHF Microbiology Date/Time Source Procedure Growth Status 03/09/19 14:10 Blood Blood Culture - Final Staphylococcus Sp Coag Neg Complete 03/09/19 22:00 Sputum Induced Gram Stain - Final Complete 03/09/19 22:00 Sputum Culture - Final Providencia Stuartii Mariposa Tropicalis Usual Respiratory Minoo Complete 03/11/19 17:00 Indwelling Cath Urine Culture - Final Escherichia Coli - Esbl Complete 03/09/19 14:35 Rectum VRE Culture - Final NO VANCOMYCIN RESISTANT ENTEROCOCCUS ... Complete 03/09/19 14:35 Rectum - Final NO CARBAPENEM-RESISTANT ENTEROBACTERI... Complete Labs Test 03/14/19 12:50 03/14/19 20:20 03/15/19 03:50 03/16/19 04:30 White Blood Count 8.5 K/UL (4.8-10.8) 8.0 K/UL (4.8-10.8) 6.5 K/UL (4.8-10.8) Red Blood Count 2.65 M/UL (4.20-5.40) 2.93 M/UL (4.20-5.40) 2.38 M/UL (4.20-5.40) Hemoglobin 8.7 G/DL (12.0-16.0) 9.9 G/DL (12.0-16.0) 8.0 G/DL (12.0-16.0) Hematocrit 26.4 % (37.0-47.0) 29.7 % (37.0-47.0) 23.9 % (37.0-47.0) Mean Corpuscular Volume 100 FL (80-99) 101 FL (80-99) 100 FL (80-99) Mean Corpuscular Hemoglobin 33.0 PG (27.0-31.0) 33.8 PG (27.0-31.0) 33.5 PG (27.0-31.0) Mean Corpuscular Hemoglobin Concent 33.0 G/DL (32.0-36.0) 33.3 G/DL (32.0-36.0) 33.4 G/DL (32.0-36.0) Red Cell Distribution Width 12.8 % (11.6-14.8) 12.8 % (11.6-14.8) 12.5 % (11.6-14.8) Platelet Count 118 K/UL (150-450) 128 K/UL (150-450) 137 K/UL (150-450) Mean Platelet Volume 10.2 FL (6.5-10.1) 9.4 FL (6.5-10.1) 10.2 FL (6.5-10.1) Neutrophils (%) (Auto) 67.2 % (45.0-75.0) 67.1 % (45.0-75.0) 65.2 % (45.0-75.0) Lymphocytes (%) (Auto) 24.4 % (20.0-45.0) 23.5 % (20.0-45.0) 24.2 % (20.0-45.0) Monocytes (%) (Auto) 6.4 % (1.0-10.0) 7.1 % (1.0-10.0) 7.3 % (1.0-10.0) Eosinophils (%) (Auto) 1.6 % (0.0-3.0) 1.5 % (0.0-3.0) 2.5 % (0.0-3.0) Basophils (%) (Auto) 0.4 % (0.0-2.0) 0.8 % (0.0-2.0) 0.9 % (0.0-2.0) Sodium Level 142 MMOL/L (136-145) 141 MMOL/L (136-145) 142 MMOL/L (136-145) Potassium Level 3.9 MMOL/L (3.5-5.1) 4.6 MMOL/L (3.5-5.1) 4.3 MMOL/L (3.5-5.1) Chloride Level 108 MMOL/L (98-107) 108 MMOL/L (98-107) 109 MMOL/L (98-107) Carbon Dioxide Level 27 MMOL/L (21-32) 26 MMOL/L (21-32) 28 MMOL/L (21-32) Anion Gap 7 mmol/L (5-15) 7 mmol/L (5-15) 5 mmol/L (5-15) Blood Urea Nitrogen 15 mg/dL (7-18) 17 mg/dL (7-18) 13 mg/dL (7-18) Creatinine 0.6 MG/DL (0.55-1.30) 0.6 MG/DL (0.55-1.30) 0.6 MG/DL (0.55-1.30) Estimat Glomerular Filtration Rate mL/min (>60) mL/min (>60) mL/min (>60) Glucose Level 158 MG/DL (74-106) 109 MG/DL (74-106) 162 MG/DL (74-106) Calcium Level 7.7 MG/DL (8.5-10.1) 8.4 MG/DL (8.5-10.1) 7.8 MG/DL (8.5-10.1) Total Bilirubin 0.2 MG/DL (0.2-1.0) Aspartate Amino Transf (AST/SGOT) 28 U/L (15-37) Alanine Aminotransferase (ALT/SGPT) 10 U/L (12-78) Alkaline Phosphatase 74 U/L (46-116) Total Protein 5.4 G/DL (6.4-8.2) Albumin 1.5 G/DL (3.4-5.0) Globulin 3.9 g/dL Albumin/Globulin Ratio 0.4 (1.0-2.7) Random Vancomycin Level 16.2 ug/mL Magnesium Level 2.5 MG/DL (1.8-2.4) Pro-B-Type Natriuretic Peptide 2790 pg/mL (0-125) Current Medications Medications (Trade) Dose Ordered Sig/Singh Route PRN Reason Start Time Stop Time Status Last Admin Dose Admin Acetaminophen (Tylenol) 650 mg Q4H PRN GT Mild Pain/Temp > 100.5 03/09/19 20:30 04/08/19 20:29 03/15/19 10:09 Chlorhexidine Gluconate (Azra-Hex 2%) 1 applic DAILY@2000 TOPIC 03/10/19 20:00 04/09/19 19:59 03/16/19 21:11 Dextrose (Dextrose 50%) 25 ml Q30M PRN IV Hypoglycemia 03/09/19 21:00 04/08/19 20:59 Dextrose (Dextrose 50%) 50 ml Q30M PRN IV Hypoglycemia 03/09/19 21:00 04/08/19 20:59 Dextrose/ Electrolytes 1,000 ml @ 50 mls/hr Q20H IV 03/12/19 14:53 04/09/19 14:52 03/16/19 17:22 Insulin Aspart (NovoLOG) EVERY 6 HOURS SUBQ 03/10/19 00:00 04/09/19 00:00 03/17/19 05:41 Lorazepam (Ativan 2mg/ml 1ml) 0.5 mg Q4H PRN IV seizure 03/14/19 20:45 03/19/19 20:44 03/15/19 10:09 Meropenem 1 gm/ Sodium Chloride 55 ml @ 110 mls/hr Q12H IVPB 03/15/19 12:00 03/19/19 11:59 03/16/19 23:58 Norepinephrine Bitartrate 8 mg/ Dextrose 250 ml @ 0 mls/hr Q24H IV 03/09/19 21:00 04/08/19 20:59 03/11/19 23:19 Pantoprazole (Protonix) 40 mg DAILY IVP 03/10/19 09:00 04/09/19 08:59 03/17/19 08:45 Phenytoin (Dilantin) 125 mg Q12HR GT 03/09/19 21:00 04/08/19 20:59 03/17/19 08:45 Quetiapine Fumarate (SEROquel) 25 mg DAILYPRN PRN ORAL agitation 03/14/19 19:00 04/13/19 18:59 Vancomycin HCl (Vanco rx to dose) 1 ea DAILY PRN MISC Per rx protocol 03/09/19 20:30 04/08/19 20:29 Vancomycin HCl 1 gm/Sodium Chloride 275 ml @ 183.708 mls/hr Q24H IVPB 03/15/19 22:00 03/20/19 21:59 03/16/19 21:11 Prashanth Osborne MD March 17, 2019 12:37
[2019-03-17] MEDS: Meropenem 1 GM in NS 55 ML IVPB SCH (12:40)
[2019-03-17] MEDS: D5W w/KCl 20mEq 1,000 ML IV SCH (14:21)
[2019-03-17] MEDS: Acetaminophen 650mg/20.3ml GT PRN (16:35)
--- NOTE | 2019-03-17 17:23 | Nephrology Progress Note ---
Assessment/Plan Assessment 1) Hypernatremia has resolved 2) coag + staph bacteremia ? source 3) S/P respiratory failure on the Vent 4) ? CHF Plan: Continue D5w at 50cc/hr IV ATB Will give Lasix 80 mg IV x1 Labs in AM Subjective Subjective She is still on the vent, She had 60 mg IV lasix with good diuresis, still not weanable Objective Objective Last 24 Hour Vital Signs Date Time Temp Pulse Resp B/P (MAP) Pulse Ox O2 Delivery O2 Flow Rate FiO2 03/17/19 17:13 67 15 30 03/17/19 16:00 Mechanical Ventilator Mechanical Ventilator 03/17/19 16:00 30 03/17/19 16:00 72 03/17/19 16:00 99.1 78 26 155/57 (89) 100 03/17/19 15:00 69 14 109/48 (68) 100 03/17/19 14:35 70 21 30 03/17/19 14:00 72 14 119/48 (71) 100 03/17/19 13:09 69 15 30 03/17/19 13:00 69 16 104/37 (59) 100 03/17/19 12:00 80 03/17/19 12:00 30 03/17/19 12:00 Mechanical Ventilator Mechanical Ventilator 03/17/19 12:00 98.7 70 15 111/44 (66) 100 03/17/19 11:00 73 17 128/68 (88) 100 03/17/19 10:40 73 17 30 03/17/19 10:00 72 20 115/42 (66) 100 03/17/19 09:00 100 03/17/19 09:00 75 20 126/48 (74) 100 03/17/19 08:50 77 22 30 03/17/19 08:00 30 03/17/19 08:00 Mechanical Ventilator Mechanical Ventilator 03/17/19 08:00 77 03/17/19 08:00 98.8 78 13 135/66 (89) 100 03/17/19 07:02 76 17 30 03/17/19 07:00 75 13 133/65 (87) 100 03/17/19 06:00 76 13 138/67 (90) 100 03/17/19 05:09 78 19 30 03/17/19 05:00 78 15 120/58 (78) 100 03/17/19 04:00 Mechanical Ventilator Mechanical Ventilator 03/17/19 04:00 98.5 78 18 124/50 (74) 100 03/17/19 04:00 80 03/17/19 04:00 30 03/17/19 03:06 84 17 30 03/17/19 03:00 84 18 130/51 (77) 100 03/17/19 02:00 103 24 158/106 (123) 100 03/17/19 01:00 82 19 132/46 (74) 100 03/17/19 00:48 83 28 30 03/17/19 00:00 Mechanical Ventilator Mechanical Ventilator 03/17/19 00:00 99.0 73 22 142/109 (120) 100 03/16/19 23:00 74 16 130/49 (76) 100 03/16/19 22:46 74 18 30 03/16/19 22:00 74 20 130/47 (74) 100 03/16/19 21:08 69 20 30 03/16/19 21:00 69 16 123/47 (72) 100 03/16/19 20:00 30 03/16/19 20:00 99.4 71 16 126/48 (74) 100 03/16/19 20:00 Mechanical Ventilator Mechanical Ventilator 03/16/19 20:00 69 03/16/19 19:08 73 18 30 03/16/19 19:00 74 20 124/49 (74) 100 03/16/19 18:00 73 20 136/53 (80) 100 Intake and Output 03/16/19 03/17/19 19:00 07:00 Intake Total 1446 ml 1520 ml Output Total 1590 ml 840 ml Balance -144 ml 680 ml Free Water 260 ml 30 ml IV Total 405 ml 830 ml Tube Feeding 720 ml 660 ml Other 61 ml Output Urine Total 1590 ml 840 ml Height (Feet): 5 Height (Inches): 8.00 Weight (Pounds): 148 General Appearance: WD/WN, other - on the vent EENT: PERRL/EOMI Neck: non-tender, normal alignment Cardiovascular: normal rate, regular rhythm Respiratory/Chest: normal breath sounds, crackles/rales Abdomen: non tender, soft Neurologic: no motor/sensory deficits Ulisses Tello MD March 17, 2019 17:23
--- NOTE | 2019-03-17 20:52 | Cardiology Progress Note ---
Assessment/Plan Assessment/Plan 1. Hypernatremia free water deficit 2. Likely demand ischemia 3. Metabolic alkalosis. 4. altered mentation secondary to above. 5. Anemia, mild. 6. History of seizures. 7. Diabetes history. 8. Hypertension history. 9. hs of diastolic failure 10.New LV systolic dysfunction ? 11. bactermia 12 edema bp is higer to day remain on the vent failed weaning 03/10 echo report noted some echo views were reviewed may not have as bad an lv function as reported atlhgouh the images are not typical stress induced cm may be in the differential on iv abx continue vent support not tachy hemodynamic are better tele monitor sinus on iv abx diuretics wean attempts Subjective ROS Limited/Unobtainable: Yes Objective Last 24 Hour Vital Signs Date Time Temp Pulse Resp B/P (MAP) Pulse Ox O2 Delivery O2 Flow Rate FiO2 03/17/19 18:55 68 28 30 03/17/19 18:00 66 15 104/46 (65) 100 03/17/19 17:13 67 15 30 03/17/19 17:00 69 19 119/52 (74) 100 03/17/19 16:00 Mechanical Ventilator Mechanical Ventilator 03/17/19 16:00 30 03/17/19 16:00 72 03/17/19 16:00 99.1 78 26 155/57 (89) 100 03/17/19 15:00 69 14 109/48 (68) 100 03/17/19 14:35 70 21 30 03/17/19 14:00 72 14 119/48 (71) 100 03/17/19 13:09 69 15 30 03/17/19 13:00 69 16 104/37 (59) 100 03/17/19 12:00 80 03/17/19 12:00 30 03/17/19 12:00 Mechanical Ventilator Mechanical Ventilator 03/17/19 12:00 98.7 70 15 111/44 (66) 100 03/17/19 11:00 73 17 128/68 (88) 100 03/17/19 10:40 73 17 30 03/17/19 10:00 72 20 115/42 (66) 100 03/17/19 09:00 100 03/17/19 09:00 75 20 126/48 (74) 100 03/17/19 08:50 77 22 30 03/17/19 08:00 30 03/17/19 08:00 Mechanical Ventilator Mechanical Ventilator 03/17/19 08:00 77 03/17/19 08:00 98.8 78 13 135/66 (89) 100 03/17/19 07:02 76 17 30 03/17/19 07:00 75 13 133/65 (87) 100 03/17/19 06:00 76 13 138/67 (90) 100 03/17/19 05:09 78 19 30 03/17/19 05:00 78 15 120/58 (78) 100 03/17/19 04:00 Mechanical Ventilator Mechanical Ventilator 03/17/19 04:00 98.5 78 18 124/50 (74) 100 03/17/19 04:00 80 03/17/19 04:00 30 03/17/19 03:06 84 17 30 03/17/19 03:00 84 18 130/51 (77) 100 03/17/19 02:00 103 24 158/106 (123) 100 03/17/19 01:00 82 19 132/46 (74) 100 03/17/19 00:48 83 28 30 03/17/19 00:00 Mechanical Ventilator Mechanical Ventilator 03/17/19 00:00 99.0 73 22 142/109 (120) 100 03/16/19 23:00 74 16 130/49 (76) 100 03/16/19 22:46 74 18 30 03/16/19 22:00 74 20 130/47 (74) 100 03/16/19 21:08 69 20 30 03/16/19 21:00 69 16 123/47 (72) 100 General Appearance: no apparent distress, on vent, patient on isolation Neck: supple Cardiovascular: normal rate Respiratory/Chest: lungs clear - ant Abdomen: normal bowel sounds, non tender, soft Extremities: no swelling Intake and Output 03/16/19 03/17/19 19:00 07:00 Intake Total 1446 ml 1520 ml Output Total 1590 ml 840 ml Balance -144 ml 680 ml Free Water 260 ml 30 ml IV Total 405 ml 830 ml Tube Feeding 720 ml 660 ml Other 61 ml Output Urine Total 1590 ml 840 ml Allen Bliss MD March 17, 2019 20:51
[2019-03-17] MEDS: Dyna-Hex 2% Top Sol 2oz TOPIC SCH (21:18)
[2019-03-17] MEDS: Vancomycin 1 GM in NS 275 ML IVPB SCH (21:21)
[2019-03-18] VITALS (24 sets, daily range): BP systolic 121–155; BP diastolic 48–122
[2019-03-18] MEDS: Meropenem 1 GM in NS 55 ML IVPB SCH ×2 (00:18→12:24)
[2019-03-18] MEDS: NovoLOG Insulin Flexpen SUBQ SCH ×4 (00:21→17:40)
[2019-03-18 05:05] LABS: BASOPHILS % (AUTO) 1.8 % (0.0-2.0); EOSINOPHILS % (AUTO) 2.2 % (0.0-3.0); HEMATOCRIT 27.9 % (37.0-47.0); HEMOGLOBIN 9.3 G/DL (12.0-16.0); LYMPHOCYTES % (AUTO) 30.9 % (20.0-45.0); MEAN CORPUSCULAR VOLUME 101 FL (80-99); MONOCYTES % (AUTO) 6.3 % (1.0-10.0); NEUTROPHILS % (AUTO) 58.8 % (45.0-75.0); PLATELET COUNT 214 K/UL (150-450); RED BLOOD COUNT 2.76 M/UL (4.20-5.40); RED CELL DISTRIBUTION WIDTH 12.6 % (11.6-14.8); WHITE BLOOD COUNT 6.8 K/UL (4.8-10.8)
[2019-03-18 05:32] LABS: ALANINE AMINOTRANSFERASE 10 U/L (12-78); ALBUMIN 1.6 G/DL (3.4-5.0); ALBUMIN/GLOBULIN RATIO 0.3 (1.0-2.7); ALKALINE PHOSPHATASE 91 U/L (46-116); ANION GAP 5 mmol/L (5-15); ASPARTATE AMINO TRANSFERASE 25 U/L (15-37); BILIRUBIN,TOTAL 0.2 MG/DL (0.2-1.0); BLOOD UREA NITROGEN 19 mg/dL (7-18); CALCIUM 8.3 MG/DL (8.5-10.1); CARBON DIOXIDE 31 MMOL/L (21-32); CHLORIDE 107 MMOL/L (98-107); CREATININE 0.6 MG/DL (0.55-1.30); POTASSIUM 4.1 MMOL/L (3.5-5.1); SODIUM 143 MMOL/L (136-145)
[2019-03-18] MEDS: Pantoprazole Inj IVP SCH (09:44)
[2019-03-18] MEDS: Phenytoin Susp 100mg/4ml GT SCH ×2 (09:44→20:46)
[2019-03-18] MEDS: D5W w/KCl 20mEq 1,000 ML IV SCH (11:10)
--- NOTE | 2019-03-18 14:36 | Infectious Diseases Prog Note ---
Assessment/Plan Assessment/Plan ASSESSMENT/PLAN: 1. 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 Respiratory failure, on vent. 3. Diabetes. 4. Hypertension. 5. Blood sugar and blood pressure treatment per primary for diabetes and hypertension. 6. Atrial fibrillation. 7. Heart failure. 8. G-tube. 9. Skin care protocol. 10. Cardiomegaly. 11. CAD and [place]. 12. Hyperlipidemia. 13. Seizure disorder. 14. GERD. 15. History of CVA. 16. Allergic to penicillin and sulfa, tolerates meropenem. 17. Social history is negative. 18. Family history is noncontributory. 19. MAR is noted. 20. Case discussed with Dr. Franks. 21. Continue treatment per primary consultants. Subjective Constitutional: Reports: other - on vent ; Denies: fever HEENT: Reports: congestion Respiratory: Reports: shortness of breath Cardiovascular: Reports: other - no pressors Gastrointestinal/Abdominal: Denies: nausea, vomiting, diarrhea Genitourinary: Reports: other - + macias Neurologic: Reports: weakness, other - more alert Psychiatric: Reports: other - na Skin: Denies: rash Endocrine: Reports: other - na Hematologic: Denies: bleeding Musculoskeletal: Reports: other - na Allergies: Coded Allergies: PENICILLINS (Verified Allergy, Unknown, 02/04/18) SULFA (SULFONAMIDE ANTIBIOTICS) (Verified Allergy, Unknown, 02/04/18) SULFACETAMIDE (Unverified Allergy, Unknown, 06/24/18) Objective Vital Signs Last 24 Hour Vital Signs Date Time Temp Pulse Resp B/P (MAP) Pulse Ox O2 Delivery O2 Flow Rate FiO2 03/18/19 14:00 84 15 155/67 (96) 98 03/18/19 13:00 80 15 141/56 (84) 98 03/18/19 12:43 77 03/18/19 12:30 87 30 30 03/18/19 12:00 77 20 121/50 (73) 99 03/18/19 12:00 30 03/18/19 12:00 Mechanical Ventilator Mechanical Ventilator 03/18/19 11:00 75 18 129/52 (77) 100 03/18/19 10:30 81 26 30 03/18/19 10:00 74 25 138/62 (87) 100 03/18/19 09:00 75 22 135/58 (83) 100 03/18/19 08:50 100 03/18/19 08:50 85 35 30 03/18/19 08:00 30 03/18/19 08:00 Mechanical Ventilator Mechanical Ventilator 03/18/19 08:00 98.5 77 22 144/60 (88) 100 03/18/19 08:00 78 03/18/19 07:15 80 20 100 03/18/19 07:13 76 17 30 03/18/19 07:00 75 24 146/58 (87) 100 03/18/19 06:00 77 17 121/49 (73) 99 03/18/19 05:15 83 34 30 03/18/19 05:00 98.5 82 25 143/75 (97) 99 03/18/19 04:00 87 26 138/61 (86) 100 03/18/19 04:00 Mechanical Ventilator Mechanical Ventilator 03/18/19 04:00 87 03/18/19 04:00 30 03/18/19 03:05 85 26 30 03/18/19 03:00 82 24 150/122 (131) 100 03/18/19 02:00 74 16 130/56 (80) 100 03/18/19 01:16 75 15 30 03/18/19 01:00 76 26 151/67 (95) 100 03/18/19 00:10 Mechanical Ventilator Mechanical Ventilator 03/18/19 00:00 98.6 73 23 126/59 (81) 100 03/18/19 00:00 30 03/18/19 00:00 75 03/17/19 23:09 77 19 30 03/17/19 23:00 77 27 148/58 (88) 100 03/17/19 22:06 70 22 121/68 (85) 100 03/17/19 21:05 64 16 30 03/17/19 21:00 100/45 03/17/19 21:00 68 20 100/49 (66) 100 03/17/19 20:00 68 03/17/19 20:00 99.0 65 21 106/45 (65) 100 03/17/19 20:00 Mechanical Ventilator Mechanical Ventilator 03/17/19 20:00 30 03/17/19 19:00 67 20 115/45 (68) 100 03/17/19 18:55 68 28 30 03/17/19 18:00 66 15 104/46 (65) 100 03/17/19 17:13 67 15 30 03/17/19 17:00 69 19 119/52 (74) 100 03/17/19 16:00 Mechanical Ventilator Mechanical Ventilator 03/17/19 16:00 30 03/17/19 16:00 72 03/17/19 16:00 99.1 78 26 155/57 (89) 100 03/17/19 15:00 69 14 109/48 (68) 100 03/17/19 14:35 70 21 30 Height (Feet): 5 Height (Inches): 8.00 Weight (Pounds): 160 General Appearance: other - on vent, opens eyes HEENT: normocephalic, atraumatic, anicteric, no JVD, other - oral - intubated Respiratory/Chest: crackles/rales, rhonchi - bilaterally Cardiovascular: normal rate, regular rhythm, no gallop/murmur, no JVD Abdomen: normal bowel sounds, soft, non tender, no organomegaly, non distended Genitourinary: other - no macias Extremities: no cyanosis Skin: no rash Neurologic/Psychiatric: other - more alert, weak, on vent Lymphatic: no neck adenopathy Musculoskeletal: no effusion Objective Chest x-ray - 03/15 - Comparison: 03/12/2019 A single view chest radiograph was obtained. Findings: Endotracheal tube and right jugular line are stable. Mild pulmonary vascular congestion suspected. IMPRESSION: No change from the prior exam. Mild CHF suspected Chest x-ray - 03/17/19 - Comparison: 03/15/2019 A single view chest radiograph was obtained. Findings: Vascular congestion demonstrated. Tubes and lines are stable. Heart size is mildly enlarged and stable. Small right pleural effusion suspected. IMPRESSION: No change from the previous examination. Suspected CHF Microbiology Date/Time Source Procedure Growth Status 03/09/19 14:10 Blood Blood Culture - Final Staphylococcus Sp Coag Neg Complete 03/09/19 22:00 Sputum Induced Gram Stain - Final Complete 03/09/19 22:00 Sputum Culture - Final Providencia Stuartii Mariposa Tropicalis Usual Respiratory Minoo Complete 03/11/19 17:00 Indwelling Cath Urine Culture - Final Escherichia Coli - Esbl Complete 03/09/19 14:35 Rectum VRE Culture - Final NO VANCOMYCIN RESISTANT ENTEROCOCCUS ... Complete 03/09/19 14:35 Rectum - Final NO CARBAPENEM-RESISTANT ENTEROBACTERI... Complete Laboratory Tests Test 03/18/19 04:00 White Blood Count 6.8 K/UL (4.8-10.8) Red Blood Count 2.76 M/UL (4.20-5.40) L Hemoglobin 9.3 G/DL (12.0-16.0) L Hematocrit 27.9 % (37.0-47.0) L Mean Corpuscular Volume 101 FL (80-99) H Mean Corpuscular Hemoglobin 33.6 PG (27.0-31.0) H Mean Corpuscular Hemoglobin Concent 33.2 G/DL (32.0-36.0) Red Cell Distribution Width 12.6 % (11.6-14.8) Platelet Count 214 K/UL (150-450) Mean Platelet Volume 7.3 FL (6.5-10.1) Neutrophils (%) (Auto) 58.8 % (45.0-75.0) Lymphocytes (%) (Auto) 30.9 % (20.0-45.0) Monocytes (%) (Auto) 6.3 % (1.0-10.0) Eosinophils (%) (Auto) 2.2 % (0.0-3.0) Basophils (%) (Auto) 1.8 % (0.0-2.0) Sodium Level 143 MMOL/L (136-145) Potassium Level 4.1 MMOL/L (3.5-5.1) Chloride Level 107 MMOL/L (98-107) Carbon Dioxide Level 31 MMOL/L (21-32) Anion Gap 5 mmol/L (5-15) Blood Urea Nitrogen 19 mg/dL (7-18) H Creatinine 0.6 MG/DL (0.55-1.30) Estimat Glomerular Filtration Rate mL/min (>60) Glucose Level 154 MG/DL (74-106) H Calcium Level 8.3 MG/DL (8.5-10.1) L Total Bilirubin 0.2 MG/DL (0.2-1.0) Aspartate Amino Transf (AST/SGOT) 25 U/L (15-37) Alanine Aminotransferase (ALT/SGPT) 10 U/L (12-78) L Alkaline Phosphatase 91 U/L (46-116) Total Protein 6.5 G/DL (6.4-8.2) Albumin 1.6 G/DL (3.4-5.0) L Globulin 4.9 g/dL Albumin/Globulin Ratio 0.3 (1.0-2.7) L Current Medications Medications (Trade) Dose Ordered Sig/Singh Route PRN Reason Start Time Stop Time Status Last Admin Dose Admin Acetaminophen (Tylenol) 650 mg Q4H PRN GT Mild Pain/Temp > 100.5 03/09/19 20:30 04/08/19 20:29 03/17/19 16:35 Chlorhexidine Gluconate (Azra-Hex 2%) 1 applic DAILY@2000 TOPIC 03/10/19 20:00 04/09/19 19:59 03/17/19 21:18 Dextrose (Dextrose 50%) 25 ml Q30M PRN IV Hypoglycemia 03/09/19 21:00 04/08/19 20:59 Dextrose (Dextrose 50%) 50 ml Q30M PRN IV Hypoglycemia 03/09/19 21:00 04/08/19 20:59 Dextrose/ Electrolytes 1,000 ml @ 50 mls/hr Q20H IV 03/12/19 14:53 04/09/19 14:52 03/18/19 11:10 Insulin Aspart (NovoLOG) EVERY 6 HOURS SUBQ 03/10/19 00:00 04/09/19 00:00 03/18/19 12:24 Lorazepam (Ativan 2mg/ml 1ml) 0.5 mg Q4H PRN IV seizure 03/14/19 20:45 03/19/19 20:44 03/15/19 10:09 Meropenem 1 gm/ Sodium Chloride 55 ml @ 110 mls/hr Q12HR@0000,1200 IVPB 03/17/19 12:40 03/22/19 12:39 03/18/19 12:24 Norepinephrine Bitartrate 8 mg/ Dextrose 250 ml @ 0 mls/hr Q24H IV 03/09/19 21:00 04/08/19 20:59 5/16/19 23:19 Pantoprazole (Protonix) 40 mg DAILY IVP 03/10/19 09:00 04/09/19 08:59 03/18/19 09:44 Phenytoin (Dilantin) 125 mg Q12HR GT 03/09/19 21:00 04/08/19 20:59 03/18/19 09:44 Vancomycin HCl (Vanco rx to dose) 1 ea DAILY PRN MISC Per rx protocol 03/09/19 20:30 04/08/19 20:29 Vancomycin HCl 1 gm/Sodium Chloride 275 ml @ 183.708 mls/hr Q24H IVPB 03/15/19 22:00 03/20/19 21:59 03/17/19 21:21 Prashanth Osborne MD March 18, 2019 14:36
--- NOTE | 2019-03-18 17:12 | Nephrology Progress Note ---
Assessment/Plan Assessment 1) Hypernatremia has resolved 2) coag + staph bacteremia ? source 3) S/P respiratory failure on the Vent 4) ? CHF Plan: Continue D5w at 50cc/hr IV ATB Bumex 2 mg IV Q8 x2 Labs in AM Subjective Subjective She is still on the vent, had some increased diuresis, Able tolerating weaning xs 1 hour today, CXR showed CHF Objective Objective Last 24 Hour Vital Signs Date Time Temp Pulse Resp B/P (MAP) Pulse Ox O2 Delivery O2 Flow Rate FiO2 03/18/19 16:00 78 13 132/59 (83) 100 03/18/19 16:00 80 03/18/19 16:00 30 03/18/19 15:00 98.7 85 15 144/65 (91) 99 03/18/19 14:45 77 15 30 03/18/19 14:00 84 15 155/67 (96) 98 03/18/19 13:00 80 15 141/56 (84) 98 03/18/19 12:43 77 03/18/19 12:30 87 30 30 03/18/19 12:00 77 20 121/50 (73) 99 03/18/19 12:00 30 03/18/19 12:00 Mechanical Ventilator Mechanical Ventilator 03/18/19 11:00 75 18 129/52 (77) 100 03/18/19 10:30 81 26 30 03/18/19 10:00 74 25 138/62 (87) 100 03/18/19 09:00 75 22 135/58 (83) 100 03/18/19 08:50 100 03/18/19 08:50 85 35 30 03/18/19 08:00 30 03/18/19 08:00 Mechanical Ventilator Mechanical Ventilator 03/18/19 08:00 98.5 77 22 144/60 (88) 100 03/18/19 08:00 78 03/18/19 07:15 80 20 100 03/18/19 07:13 76 17 30 03/18/19 07:00 75 24 146/58 (87) 100 03/18/19 06:00 77 17 121/49 (73) 99 03/18/19 05:15 83 34 30 03/18/19 05:00 98.5 82 25 143/75 (97) 99 03/18/19 04:00 87 26 138/61 (86) 100 03/18/19 04:00 Mechanical Ventilator Mechanical Ventilator 03/18/19 04:00 87 03/18/19 04:00 30 03/18/19 03:05 85 26 30 03/18/19 03:00 82 24 150/122 (131) 100 03/18/19 02:00 74 16 130/56 (80) 100 03/18/19 01:16 75 15 30 03/18/19 01:00 76 26 151/67 (95) 100 03/18/19 00:10 Mechanical Ventilator Mechanical Ventilator 03/18/19 00:00 98.6 73 23 126/59 (81) 100 03/18/19 00:00 30 03/18/19 00:00 75 03/17/19 23:09 77 19 30 03/17/19 23:00 77 27 148/58 (88) 100 03/17/19 22:06 70 22 121/68 (85) 100 03/17/19 21:05 64 16 30 03/17/19 21:00 100/45 03/17/19 21:00 68 20 100/49 (66) 100 03/17/19 20:00 68 03/17/19 20:00 99.0 65 21 106/45 (65) 100 03/17/19 20:00 Mechanical Ventilator Mechanical Ventilator 03/17/19 20:00 30 03/17/19 19:00 67 20 115/45 (68) 100 03/17/19 18:55 68 28 30 03/17/19 18:00 66 15 104/46 (65) 100 03/17/19 17:13 67 15 30 Intake and Output 03/17/19 03/18/19 19:00 07:00 Intake Total 770 ml 1880.000 ml Output Total 1125 ml 1150 ml Balance -355 ml 730.000 ml Free Water 230 ml IV Total 50 ml 930.000 ml Tube Feeding 720 ml 720 ml Output Urine Total 1125 ml 1150 ml Laboratory Tests 03/18/19 04:00: White Blood Count 6.8, Red Blood Count 2.76L, Hemoglobin 9.3L, Hematocrit 27.9L , Mean Corpuscular Volume 101H, Mean Corpuscular Hemoglobin 33.6H, Mean Corpuscular Hemoglobin Concent 33.2, Red Cell Distribution Width 12.6, Platelet Count 214, Mean Platelet Volume 7.3, Neutrophils (%) (Auto) 58.8, Lymphocytes (% ) (Auto) 30.9, Monocytes (%) (Auto) 6.3, Eosinophils (%) (Auto) 2.2, Basophils ( %) (Auto) 1.8, Sodium Level 143, Potassium Level 4.1, Chloride Level 107, Carbon Dioxide Level 31, Anion Gap 5, Blood Urea Nitrogen 19H, Creatinine 0.6, Estimat Glomerular Filtration Rate , Glucose Level 154H, Calcium Level 8.3L, Total Bilirubin 0.2, Aspartate Amino Transf (AST/SGOT) 25, Alanine Aminotransferase (ALT/SGPT) 10L, Alkaline Phosphatase 91, Total Protein 6.5, Albumin 1.6L, Globulin 4.9, Albumin/Globulin Ratio 0.3L Height (Feet): 5 Height (Inches): 8.00 Weight (Pounds): 160 General Appearance: WD/WN, other - On the vent EENT: PERRL/EOMI Neck: non-tender, normal alignment Cardiovascular: normal rate, regular rhythm Respiratory/Chest: chest wall non-tender, crackles/rales Abdomen: normal bowel sounds, non tender, soft Extremities: moderate edema Neurologic: no motor/sensory deficits Ulisses Tello MD March 18, 2019 17:12
--- NOTE | 2019-03-18 17:26 | Pulmonology Progress Note ---
Assessment/Plan Assessment/Plan 1. Acute respiratory failure. 2. Severe dehydration with shock. 3. Severe hypernatremia. 4. Multi-infarct dementia. 5. Possible acute myocardial infarction. 6. History of heart failure. 7. History of atrial fibrillation. 8. Gastric tube with dysphagia. 9. History of chronic obstructive pulmonary disease. 10. History of seizures with therapeutic Dilantin level. 11. History of hypertension. 12. Hyperlipidemia. 13. Diabetes. 14. 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 better weaning parameters today ID following may need trach if not weanable disc w dtr disc w RN, renal reviewed w Dr Briscoe Subjective ROS Limited/Unobtainable: Yes Allergies: Coded Allergies: PENICILLINS (Verified Allergy, Unknown, 02/04/18) SULFA (SULFONAMIDE ANTIBIOTICS) (Verified Allergy, Unknown, 02/04/18) SULFACETAMIDE (Unverified Allergy, Unknown, 06/24/18) Objective Last 24 Hour Vital Signs Date Time Temp Pulse Resp B/P (MAP) Pulse Ox O2 Delivery O2 Flow Rate FiO2 03/18/19 16:00 78 13 132/59 (83) 100 03/18/19 16:00 80 03/18/19 16:00 30 03/18/19 15:00 98.7 85 15 144/65 (91) 99 03/18/19 14:45 77 15 30 03/18/19 14:00 84 15 155/67 (96) 98 03/18/19 13:00 80 15 141/56 (84) 98 03/18/19 12:43 77 03/18/19 12:30 87 30 30 03/18/19 12:00 77 20 121/50 (73) 99 03/18/19 12:00 30 03/18/19 12:00 Mechanical Ventilator Mechanical Ventilator 03/18/19 11:00 75 18 129/52 (77) 100 03/18/19 10:30 81 26 30 03/18/19 10:00 74 25 138/62 (87) 100 03/18/19 09:00 75 22 135/58 (83) 100 03/18/19 08:50 100 03/18/19 08:50 85 35 30 03/18/19 08:00 30 03/18/19 08:00 Mechanical Ventilator Mechanical Ventilator 03/18/19 08:00 98.5 77 22 144/60 (88) 100 03/18/19 08:00 78 03/18/19 07:15 80 20 100 03/18/19 07:13 76 17 30 03/18/19 07:00 75 24 146/58 (87) 100 03/18/19 06:00 77 17 121/49 (73) 99 03/18/19 05:15 83 34 30 03/18/19 05:00 98.5 82 25 143/75 (97) 99 03/18/19 04:00 87 26 138/61 (86) 100 03/18/19 04:00 Mechanical Ventilator Mechanical Ventilator 03/18/19 04:00 87 03/18/19 04:00 30 03/18/19 03:05 85 26 30 03/18/19 03:00 82 24 150/122 (131) 100 03/18/19 02:00 74 16 130/56 (80) 100 03/18/19 01:16 75 15 30 03/18/19 01:00 76 26 151/67 (95) 100 03/18/19 00:10 Mechanical Ventilator Mechanical Ventilator 03/18/19 00:00 98.6 73 23 126/59 (81) 100 03/18/19 00:00 30 03/18/19 00:00 75 03/17/19 23:09 77 19 30 03/17/19 23:00 77 27 148/58 (88) 100 03/17/19 22:06 70 22 121/68 (85) 100 03/17/19 21:05 64 16 30 03/17/19 21:00 100/45 03/17/19 21:00 68 20 100/49 (66) 100 03/17/19 20:00 68 03/17/19 20:00 99.0 65 21 106/45 (65) 100 03/17/19 20:00 Mechanical Ventilator Mechanical Ventilator 03/17/19 20:00 30 03/17/19 19:00 67 20 115/45 (68) 100 03/17/19 18:55 68 28 30 03/17/19 18:00 66 15 104/46 (65) 100 Intake and Output 03/17/19 03/18/19 19:00 07:00 Intake Total 770 ml 1880.000 ml Output Total 1125 ml 1150 ml Balance -355 ml 730.000 ml Free Water 230 ml IV Total 50 ml 930.000 ml Tube Feeding 720 ml 720 ml Output Urine Total 1125 ml 1150 ml Objective GT General Appearance: no acute distress HEENT: atraumatic Respiratory/Chest: decreased breath sounds Cardiovascular: normal rate Abdomen: soft, non tender Laboratory Tests 03/18/19 04:00: White Blood Count 6.8, Red Blood Count 2.76L, Hemoglobin 9.3L, Hematocrit 27.9L , Mean Corpuscular Volume 101H, Mean Corpuscular Hemoglobin 33.6H, Mean Corpuscular Hemoglobin Concent 33.2, Red Cell Distribution Width 12.6, Platelet Count 214, Mean Platelet Volume 7.3, Neutrophils (%) (Auto) 58.8, Lymphocytes (% ) (Auto) 30.9, Monocytes (%) (Auto) 6.3, Eosinophils (%) (Auto) 2.2, Basophils ( %) (Auto) 1.8, Sodium Level 143, Potassium Level 4.1, Chloride Level 107, Carbon Dioxide Level 31, Anion Gap 5, Blood Urea Nitrogen 19H, Creatinine 0.6, Estimat Glomerular Filtration Rate , Glucose Level 154H, Calcium Level 8.3L, Total Bilirubin 0.2, Aspartate Amino Transf (AST/SGOT) 25, Alanine Aminotransferase (ALT/SGPT) 10L, Alkaline Phosphatase 91, Total Protein 6.5, Albumin 1.6L, Globulin 4.9, Albumin/Globulin Ratio 0.3L Current Medications Medications (Trade) Dose Ordered Sig/Singh Route PRN Reason Start Time Stop Time Status Last Admin Dose Admin Acetaminophen (Tylenol) 650 mg Q4H PRN GT Mild Pain/Temp > 100.5 03/09/19 20:30 04/08/19 20:29 03/17/19 16:35 Bumetanide (Bumex) 2 mg Q8H IVP 03/18/19 17:15 03/19/19 01:16 Chlorhexidine Gluconate (Azra-Hex 2%) 1 applic DAILY@1999 TOPIC 03/10/19 20:00 04/09/19 19:59 03/17/19 21:18 Dextrose (Dextrose 50%) 25 ml Q30M PRN IV Hypoglycemia 03/09/19 21:00 04/08/19 20:59 Dextrose (Dextrose 50%) 50 ml Q30M PRN IV Hypoglycemia 03/09/19 21:00 04/08/19 20:59 Dextrose/ Electrolytes 1,000 ml @ 50 mls/hr Q20H IV 03/12/19 14:53 04/09/19 14:52 03/18/19 11:10 Insulin Aspart (NovoLOG) EVERY 6 HOURS SUBQ 03/10/19 00:00 04/09/19 00:00 03/18/19 12:24 Lorazepam (Ativan 2mg/ml 1ml) 0.5 mg Q4H PRN IV seizure 03/14/19 20:45 03/19/19 20:44 03/15/19 10:09 Meropenem 1 gm/ Sodium Chloride 55 ml @ 110 mls/hr Q12HR@0000,1200 IVPB 03/17/19 12:40 03/22/19 12:39 03/18/19 12:24 Norepinephrine Bitartrate 8 mg/ Dextrose 250 ml @ 0 mls/hr Q24H IV 03/09/19 21:00 04/08/19 20:59 03/11/19 23:19 Pantoprazole (Protonix) 40 mg DAILY IVP 03/10/19 09:00 04/09/19 08:59 03/18/19 09:44 Phenytoin (Dilantin) 125 mg Q12HR GT 03/09/19 21:00 04/08/19 20:59 03/18/19 09:44 Vancomycin HCl (Vanco rx to dose) 1 ea DAILY PRN MISC Per rx protocol 03/18/19 14:41 04/17/19 14:40 Vancomycin HCl 1 gm/Sodium Chloride 275 ml @ 183.708 mls/hr Q24H IVPB 03/18/19 22:00 03/23/19 21:59 Fernando Franks MD March 18, 2019 17:26
[2019-03-18] MEDS: Bumetanide 2.5mg/10ml Inj IVP SCH (17:37)
--- NOTE | 2019-03-18 19:46 | Cardiology Progress Note ---
Assessment/Plan Assessment/Plan 1. Hypernatremia free water deficit 2. Likely demand ischemia 3. Metabolic alkalosis. 4. altered mentation secondary to above. 5. Anemia, mild. 6. History of seizures. 7. Diabetes history. 8. Hypertension history. 9. hs of diastolic failure 10.New LV systolic dysfunction ? 11. bactermia 12 edema bp is higer to day remain on the vent failed weaning 03/10 echo report noted some echo views were reviewed may not have as bad an lv function as reported atlhgouh the images are not typical stress induced cm may be in the differential on iv abx continue vent support not tachy hemodynamic are better tele monitor sinus on iv abx diuretics wean attempts was ablet to demario for 1.5 hour per RT d/w dtr at bedside Subjective ROS Limited/Unobtainable: Yes Objective Last 24 Hour Vital Signs Date Time Temp Pulse Resp B/P (MAP) Pulse Ox O2 Delivery O2 Flow Rate FiO2 03/18/19 19:19 73 15 30 03/18/19 19:00 98.9 85 26 148/58 (88) 100 03/18/19 18:00 77 26 132/51 (78) 100 03/18/19 17:21 88 31 30 03/18/19 17:00 75 24 139/52 (81) 100 03/18/19 16:00 78 13 132/59 (83) 100 03/18/19 16:00 80 03/18/19 16:00 Mechanical Ventilator Mechanical Ventilator 03/18/19 16:00 30 03/18/19 15:00 98.7 85 15 144/65 (91) 99 03/18/19 14:45 77 15 30 03/18/19 14:00 84 15 155/67 (96) 98 03/18/19 13:00 80 15 141/56 (84) 98 03/18/19 12:43 77 03/18/19 12:30 87 30 30 03/18/19 12:00 77 20 121/50 (73) 99 03/18/19 12:00 30 03/18/19 12:00 Mechanical Ventilator Mechanical Ventilator 03/18/19 11:00 75 18 129/52 (77) 100 03/18/19 10:30 81 26 30 03/18/19 10:00 74 25 138/62 (87) 100 5/23/19 09:00 75 22 135/58 (83) 100 03/18/19 08:50 100 03/18/19 08:50 85 35 30 03/18/19 08:00 30 03/18/19 08:00 Mechanical Ventilator Mechanical Ventilator 03/18/19 08:00 98.5 77 22 144/60 (88) 100 03/18/19 08:00 78 03/18/19 07:15 80 20 100 03/18/19 07:13 76 17 30 03/18/19 07:00 75 24 146/58 (87) 100 03/18/19 06:00 77 17 121/49 (73) 99 03/18/19 05:15 83 34 30 03/18/19 05:00 98.5 82 25 143/75 (97) 99 03/18/19 04:00 87 26 138/61 (86) 100 03/18/19 04:00 Mechanical Ventilator Mechanical Ventilator 03/18/19 04:00 87 03/18/19 04:00 30 03/18/19 03:05 85 26 30 03/18/19 03:00 82 24 150/122 (131) 100 03/18/19 02:00 74 16 130/56 (80) 100 03/18/19 01:16 75 15 30 03/18/19 01:00 76 26 151/67 (95) 100 03/18/19 00:10 Mechanical Ventilator Mechanical Ventilator 03/18/19 00:00 98.6 73 23 126/59 (81) 100 03/18/19 00:00 30 03/18/19 00:00 75 03/17/19 23:09 77 19 30 03/17/19 23:00 77 27 148/58 (88) 100 03/17/19 22:06 70 22 121/68 (85) 100 03/17/19 21:05 64 16 30 03/17/19 21:00 100/45 03/17/19 21:00 68 20 100/49 (66) 100 03/17/19 20:00 68 03/17/19 20:00 99.0 65 21 106/45 (65) 100 03/17/19 20:00 Mechanical Ventilator Mechanical Ventilator 03/17/19 20:00 30 General Appearance: obese, on vent, patient on isolation Neck: supple Cardiovascular: regular rhythm Respiratory/Chest: lungs clear - ant Abdomen: normal bowel sounds, non tender, soft Extremities: no swelling Intake and Output 03/17/19 03/18/19 19:00 07:00 Intake Total 770 ml 1880.000 ml Output Total 1125 ml 1150 ml Balance -355 ml 730.000 ml Free Water 230 ml IV Total 50 ml 930.000 ml Tube Feeding 720 ml 720 ml Output Urine Total 1125 ml 1150 ml Laboratory Tests Test 03/18/19 04:00 White Blood Count 6.8 K/UL (4.8-10.8) Red Blood Count 2.76 M/UL (4.20-5.40) L Hemoglobin 9.3 G/DL (12.0-16.0) L Hematocrit 27.9 % (37.0-47.0) L Mean Corpuscular Volume 101 FL (80-99) H Mean Corpuscular Hemoglobin 33.6 PG (27.0-31.0) H Mean Corpuscular Hemoglobin Concent 33.2 G/DL (32.0-36.0) Red Cell Distribution Width 12.6 % (11.6-14.8) Platelet Count 214 K/UL (150-450) Mean Platelet Volume 7.3 FL (6.5-10.1) Neutrophils (%) (Auto) 58.8 % (45.0-75.0) Lymphocytes (%) (Auto) 30.9 % (20.0-45.0) Monocytes (%) (Auto) 6.3 % (1.0-10.0) Eosinophils (%) (Auto) 2.2 % (0.0-3.0) Basophils (%) (Auto) 1.8 % (0.0-2.0) Sodium Level 143 MMOL/L (136-145) Potassium Level 4.1 MMOL/L (3.5-5.1) Chloride Level 107 MMOL/L (98-107) Carbon Dioxide Level 31 MMOL/L (21-32) Anion Gap 5 mmol/L (5-15) Blood Urea Nitrogen 19 mg/dL (7-18) H Creatinine 0.6 MG/DL (0.55-1.30) Estimat Glomerular Filtration Rate mL/min (>60) Glucose Level 154 MG/DL (74-106) H Calcium Level 8.3 MG/DL (8.5-10.1) L Total Bilirubin 0.2 MG/DL (0.2-1.0) Aspartate Amino Transf (AST/SGOT) 25 U/L (15-37) Alanine Aminotransferase (ALT/SGPT) 10 U/L (12-78) L Alkaline Phosphatase 91 U/L (46-116) Total Protein 6.5 G/DL (6.4-8.2) Albumin 1.6 G/DL (3.4-5.0) L Globulin 4.9 g/dL Albumin/Globulin Ratio 0.3 (1.0-2.7) L Allen Bliss MD March 18, 2019 19:46
[2019-03-18] MEDS: Dyna-Hex 2% Top Sol 2oz TOPIC SCH (20:46)
[2019-03-18] MEDS ORDERED: Vancomycin 1 GM in NS 275 ML IVPB SCH (22:00)
[2019-03-18] MEDS: Vancomycin 500mg/D5W 110ml IVPB SCH ×2 (23:19)
[2019-03-19] VITALS (24 sets, daily range): BP systolic 111–161; BP diastolic 43–62
[2019-03-19] MEDS: Meropenem 1 GM in NS 55 ML IVPB SCH ×2 (00:19→12:30)
[2019-03-19] MEDS: NovoLOG Insulin Flexpen SUBQ SCH ×4 (00:20→18:29)
--- NOTE | 2019-03-19 00:48 | Neurology Progress Note ---
Interim History Interim History ROS Limited/Unobtainable: Yes Complaints: AMS Events: No new events Interim History This visit was performed on March 19, [address] Melecio Tavarez Review of Systems Neuro Review of Systems No changes in MS or neuro exam Objective Physical Exam Last Vital Signs Date Time Temp Pulse Resp B/P (MAP) Pulse Ox O2 Delivery O2 Flow Rate FiO2 03/18/19 23:00 80 12 147/59 (88) 100 03/18/19 22:52 30 03/18/19 20:00 97.8 03/18/19 20:00 Mechanical Ventilator Mechanical Ventilator 03/10/19 08:55 50.0 Laboratory Tests Test 03/18/19 04:00 03/18/19 21:30 White Blood Count 6.8 K/UL (4.8-10.8) Red Blood Count 2.76 M/UL (4.20-5.40) L Hemoglobin 9.3 G/DL (12.0-16.0) L Hematocrit 27.9 % (37.0-47.0) L Mean Corpuscular Volume 101 FL (80-99) H Mean Corpuscular Hemoglobin 33.6 PG (27.0-31.0) H Mean Corpuscular Hemoglobin Concent 33.2 G/DL (32.0-36.0) Red Cell Distribution Width 12.6 % (11.6-14.8) Platelet Count 214 K/UL (150-450) Mean Platelet Volume 7.3 FL (6.5-10.1) Neutrophils (%) (Auto) 58.8 % (45.0-75.0) Lymphocytes (%) (Auto) 30.9 % (20.0-45.0) Monocytes (%) (Auto) 6.3 % (1.0-10.0) Eosinophils (%) (Auto) 2.2 % (0.0-3.0) Basophils (%) (Auto) 1.8 % (0.0-2.0) Sodium Level 143 MMOL/L (136-145) Potassium Level 4.1 MMOL/L (3.5-5.1) Chloride Level 107 MMOL/L (98-107) Carbon Dioxide Level 31 MMOL/L (21-32) Anion Gap 5 mmol/L (5-15) Blood Urea Nitrogen 19 mg/dL (7-18) H Creatinine 0.6 MG/DL (0.55-1.30) Estimat Glomerular Filtration Rate mL/min (>60) Glucose Level 154 MG/DL (74-106) H Calcium Level 8.3 MG/DL (8.5-10.1) L Total Bilirubin 0.2 MG/DL (0.2-1.0) Aspartate Amino Transf (AST/SGOT) 25 U/L (15-37) Alanine Aminotransferase (ALT/SGPT) 10 U/L (12-78) L Alkaline Phosphatase 91 U/L (46-116) Total Protein 6.5 G/DL (6.4-8.2) Albumin 1.6 G/DL (3.4-5.0) L Globulin 4.9 g/dL Albumin/Globulin Ratio 0.3 (1.0-2.7) L Vancomycin Level Trough 11.1 ug/mL (5.0-12.0) General: well developed, well nourished Head: normocophalic, atraumatic Neck: no rigidity EENT: benign Neurologic Exam Mental Status: awake Cranial Nerve II: no papilledema Cranial Nerves III, IV, : PERRLA, EOMI Cranial Nerve VIII: normal hearing Cranial Nerve XII: tongue midline Motor System: other - Right sided hemiplegia with TF in leg and min withdrawal at shoulder / Left sided w/d and apparent full strength to noxious stimuli Sensory: other - Some indication of paresthesia requiring increased noxious stimuli on right side Gait: normal regular Objective Remains intubated on ventilator, with gag reflex, frequently chewing ETT and moving tongue around. She is now making meaningful eye contact and tracking with her eyes. As per her granddaughter, she is now approximately back to her baseline - which was tracking people with her eyes, moving/ turning her head, she could be sounds but no formal speech. 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 Right facial weakness of whole face, including eye. Possible sensory loss on right side due to need for increased noxious stimulus to induce response. Right side plegic, with slight movement proximally > distally. Left side w/d and UE now in restraints because exhibiting full strength Impression/Recommendations Problems: (1) Acute encephalopathy Assessment & Plan: Still not following commands. As per granddaughter - she does not do this at baseline She is closer to her baseline but lethargic. (2) Septic shock (3) Respiratory failure (4) Dementia (5) Altered level of consciousness (6) CVA, old, hemiparesis Assessment & Plan: CT Brain 03/09/19: Old left parietal and occipital infarct Moderate atrophy of the brain. 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 (7) Diabetes Status: stable Diagnostic Impression MRI ordered to rule out acute stroke as cause of increased AMS and respiratory failure but unable to obtain at this time due to ventilatory status Wean Vent as able - failed trials x 2, now off sedation with increased lethargy on exam. Maintain Normoglycemia with ISS May start ASA HgB> 8 - dropping on CBC, track and trend Maintain normoglycemia with ISS Continue enteral feeding SBP< 140 Discussion with family regarding goals of care Recommendations Q 2 hour neuro obs Abx as needed Will likely need Tracheostomy as unable to be weaned off vent at this time. please avoid benzos, opioids, anticholinergic drugs if the goal of treatment is to wean- Discuss goals of care with family - DNR vs hospice vs terminal extubation Seroquel 25mg QD PRN for agitation- can be increased if necessary Continue Phenytoin but no indication for increased dosage or addition of second line AED This was a critical care note. Critical care time of 40 minutes, was performed in order to assess and manage the high probability of imminent or life threatening deterioration to respiratory/neurologic function, with frequent reassessment and excludes all billable procedures. Ngozi Franklin N.P. March 19, 2019 00:48
[2019-03-19] MEDS: Bumetanide 2.5mg/10ml Inj IVP SCH ×3 (01:41→18:23)
[2019-03-19] MEDS: D5W w/KCl 20mEq 1,000 ML IV SCH (04:44)
[2019-03-19 05:50] LABS: EOSINOPHILS % (AUTO) 2.2 % (0.0-3.0); HEMATOCRIT 25.7 % (37.0-47.0); HEMOGLOBIN 8.4 G/DL (12.0-16.0); LYMPHOCYTES % (AUTO) 23.2 % (20.0-45.0); MEAN CORPUSCULAR VOLUME 101 FL (80-99); MONOCYTES % (AUTO) 7.4 % (1.0-10.0); NEUTROPHILS % (AUTO) 66.1 % (45.0-75.0); PLATELET COUNT 226 K/UL (150-450); RED BLOOD COUNT 2.54 M/UL (4.20-5.40); RED CELL DISTRIBUTION WIDTH 13.5 % (11.6-14.8); WHITE BLOOD COUNT 5.6 K/UL (4.8-10.8)
[2019-03-19 06:14] LABS: ANION GAP 3 mmol/L (5-15); BLOOD UREA NITROGEN 15 mg/dL (7-18); CALCIUM 8.2 MG/DL (8.5-10.1); CARBON DIOXIDE 33 MMOL/L (21-32); CHLORIDE 107 MMOL/L (98-107); CREATININE 0.5 MG/DL (0.55-1.30); POTASSIUM 3.6 MMOL/L (3.5-5.1); SODIUM 143 MMOL/L (136-145)
--- NOTE | 2019-03-19 09:02 | Pulmonology Progress Note ---
Assessment/Plan Assessment/Plan 1. Acute respiratory failure. 2. Severe dehydration with shock. 3. Severe hypernatremia. 4. Multi-infarct dementia. 5. Possible acute myocardial infarction. 6. History of heart failure. 7. History of atrial fibrillation. 8. Gastric tube with dysphagia. 9. History of chronic obstructive pulmonary disease. 10. History of seizures with therapeutic Dilantin level. 11. History of hypertension. 12. Hyperlipidemia. 13. Diabetes. 14. Sepsis - FUR FEEDER bacteremia weaning today - CPAP/PS8 TV 300 R32 ID following may need trach if not weanable disc w dtr at bedside disc w RN cont present rx Subjective ROS Limited/Unobtainable: Yes Allergies: Coded Allergies: PENICILLINS (Verified Allergy, Unknown, 02/04/18) SULFA (SULFONAMIDE ANTIBIOTICS) (Verified Allergy, Unknown, 02/04/18) SULFACETAMIDE (Unverified Allergy, Unknown, 06/24/18) Objective Last 24 Hour Vital Signs Date Time Temp Pulse Resp B/P (MAP) Pulse Ox O2 Delivery O2 Flow Rate FiO2 03/19/19 08:46 30 03/19/19 08:45 100 03/19/19 07:05 75 20 30 03/19/19 07:00 74 21 136/59 (84) 100 03/19/19 06:00 74 21 136/59 (84) 100 03/19/19 05:00 98.5 74 16 132/54 (80) 100 03/19/19 04:56 79 27 30 03/19/19 04:00 30 03/19/19 04:00 74 16 132/54 (80) 100 03/19/19 04:00 Mechanical Ventilator Mechanical Ventilator 03/19/19 04:00 80 03/19/19 04:00 74 16 132/54 (80) 100 03/19/19 04:00 98.5 74 16 132/54 (80) 100 03/19/19 03:30 83 25 30 03/19/19 03:00 75 17 134/56 (82) 100 03/19/19 03:00 75 17 134/56 (82) 100 03/19/19 03:00 75 17 134/56 (82) 100 03/19/19 02:00 76 25 145/60 (88) 100 03/19/19 02:00 76 25 145/60 (88) 100 03/19/19 01:00 77 0 136/51 (79) 100 03/19/19 01:00 77 0 136/51 (79) 100 03/19/19 00:45 74 19 30 03/19/19 00:00 78 0 142/57 (85) 100 03/19/19 00:00 81 03/19/19 00:00 98.5 80 12 147/59 (88) 100 03/19/19 00:00 30 03/19/19 00:00 Mechanical Ventilator Mechanical Ventilator 03/18/19 23:00 80 12 147/59 (88) 100 03/18/19 22:52 76 20 30 03/18/19 22:00 76 0 130/48 (75) 100 03/18/19 21:20 82 26 30 03/18/19 21:00 80 0 140/58 (85) 98 03/18/19 21:00 147/58 03/18/19 20:00 97.8 75 16 139/56 (83) 99 03/18/19 20:00 30 03/18/19 20:00 Mechanical Ventilator Mechanical Ventilator 03/18/19 20:00 78 03/18/19 19:19 73 15 30 03/18/19 19:00 98.9 85 26 148/58 (88) 100 03/18/19 18:00 77 26 132/51 (78) 100 03/18/19 17:21 88 31 30 03/18/19 17:00 75 24 139/52 (81) 100 03/18/19 16:00 78 13 132/59 (83) 100 03/18/19 16:00 80 03/18/19 16:00 Mechanical Ventilator Mechanical Ventilator 03/18/19 16:00 30 03/18/19 15:00 98.7 85 15 144/65 (91) 99 03/18/19 14:45 77 15 30 03/18/19 14:00 84 15 155/67 (96) 98 03/18/19 13:00 80 15 141/56 (84) 98 03/18/19 12:43 77 03/18/19 12:30 87 30 30 03/18/19 12:00 77 20 121/50 (73) 99 03/18/19 12:00 30 03/18/19 12:00 Mechanical Ventilator Mechanical Ventilator 03/18/19 11:00 75 18 129/52 (77) 100 03/18/19 10:30 81 26 30 03/18/19 10:00 74 25 138/62 (87) 100 Intake and Output 03/18/19 03/19/19 18:59 06:59 Intake Total 770 ml 1585 ml Output Total 760 ml 2210 ml Balance 10 ml -625 ml Free Water 100 ml IV Total 50 ml 765 ml Tube Feeding 720 ml 720 ml Output Urine Total 760 ml 2210 ml # Bowel Movements 1 Objective GT General Appearance: no acute distress Respiratory/Chest: lungs clear, decreased breath sounds Cardiovascular: normal rate Laboratory Tests 03/18/19 21:30: Vancomycin Level Trough 11.1 03/19/19 05:30: White Blood Count 5.6, Red Blood Count 2.54L, Hemoglobin 8.4L, Hematocrit 25.7L , Mean Corpuscular Volume 101H, Mean Corpuscular Hemoglobin 33.1H, Mean Corpuscular Hemoglobin Concent 32.7, Red Cell Distribution Width 13.5, Platelet Count 226, Mean Platelet Volume 6.9, Neutrophils (%) (Auto) 66.1, Lymphocytes (% ) (Auto) 23.2, Monocytes (%) (Auto) 7.4, Eosinophils (%) (Auto) 2.2, Basophils ( %) (Auto) 1.0, Sodium Level 143, Potassium Level 3.6, Chloride Level 107, Carbon Dioxide Level 33H, Anion Gap 3L, Blood Urea Nitrogen 15, Creatinine 0.5L , Estimat Glomerular Filtration Rate , Glucose Level 129H, Calcium Level 8.2L Current Medications Medications (Trade) Dose Ordered Sig/Singh Route PRN Reason Start Time Stop Time Status Last Admin Dose Admin Acetaminophen (Tylenol) 650 mg Q4H PRN GT Mild Pain/Temp > 100.5 03/09/19 20:30 04/08/19 20:29 03/17/19 16:35 Chlorhexidine Gluconate (Azra-Hex 2%) 1 applic DAILY@1999 TOPIC 03/10/19 20:00 04/09/19 19:59 03/18/19 20:46 Dextrose (Dextrose 50%) 25 ml Q30M PRN IV Hypoglycemia 03/09/19 21:00 04/08/19 20:59 Dextrose (Dextrose 50%) 50 ml Q30M PRN IV Hypoglycemia 03/09/19 21:00 04/08/19 20:59 Dextrose/ Electrolytes 1,000 ml @ 50 mls/hr Q20H IV 03/12/19 14:53 04/09/19 14:52 03/19/19 04:44 Insulin Aspart (NovoLOG) EVERY 6 HOURS SUBQ 03/10/19 00:00 04/09/19 00:00 03/19/19 06:16 Lorazepam (Ativan 2mg/ml 1ml) 0.5 mg Q4H PRN IV seizure 03/14/19 20:45 03/19/19 20:44 03/15/19 10:09 Meropenem 1 gm/ Sodium Chloride 55 ml @ 110 mls/hr Q12HR@0000,1200 IVPB 03/17/19 12:40 03/22/19 12:39 03/19/19 00:19 Norepinephrine Bitartrate 8 mg/ Dextrose 250 ml @ 0 mls/hr Q24H IV 03/09/19 21:00 04/08/19 20:59 03/11/19 23:19 Pantoprazole (Protonix) 40 mg DAILY IVP 03/10/19 09:00 04/09/19 08:59 03/18/19 09:44 Phenytoin (Dilantin) 125 mg Q12HR GT 03/09/19 21:00 04/08/19 20:59 03/18/19 20:46 Vancomycin HCl (Vanco rx to dose) 1 ea DAILY PRN MISC Per rx protocol 03/18/19 14:41 04/17/19 14:40 Vancomycin HCl 500 mg/Dextrose 110 ml @ 110 mls/hr Q12H IVPB 03/18/19 23:00 03/23/19 22:59 03/18/19 23:19 Fernando Franks MD March 19, 2019 09:02
[2019-03-19] MEDS: Phenytoin Susp 100mg/4ml GT SCH ×2 (09:10→21:11)
[2019-03-19] MEDS: Pantoprazole Inj IVP SCH (09:10)
--- NOTE | 2019-03-19 10:54 | Nephrology Progress Note ---
Assessment/Plan Assessment 1) Hypernatremia has resolved 2) coag + staph bacteremia ? source 3) S/P respiratory failure on the Vent 4) ? CHF Plan: D/C D5w at 50cc/hr IV ATB Bumex 2 mg IV Q8 x3 KCL 40 MEQ Q8 X2 Water flushes 300 cc Q8 per NG Labs in AM Subjective Subjective She is still on the vent, still good diuresis, seems we are able to wean the vent better Objective Objective Last 24 Hour Vital Signs Date Time Temp Pulse Resp B/P (MAP) Pulse Ox O2 Delivery O2 Flow Rate FiO2 03/19/19 10:41 81 30 30 03/19/19 10:00 71 27 129/52 (77) 99 03/19/19 09:00 77 18 150/62 (91) 100 03/19/19 08:46 30 03/19/19 08:45 30 03/19/19 08:45 100 03/19/19 08:00 73 03/19/19 08:00 30 03/19/19 08:00 71 15 111/45 (67) 99 03/19/19 07:05 75 20 30 03/19/19 07:00 74 21 136/59 (84) 100 03/19/19 06:00 74 21 136/59 (84) 100 03/19/19 05:00 98.5 74 16 132/54 (80) 100 03/19/19 04:56 79 27 30 03/19/19 04:00 30 03/19/19 04:00 74 16 132/54 (80) 100 03/19/19 04:00 Mechanical Ventilator Mechanical Ventilator 03/19/19 04:00 80 03/19/19 04:00 74 16 132/54 (80) 100 03/19/19 04:00 98.5 74 16 132/54 (80) 100 03/19/19 03:30 83 25 30 03/19/19 03:00 75 17 134/56 (82) 100 03/19/19 03:00 75 17 134/56 (82) 100 03/19/19 03:00 75 17 134/56 (82) 100 03/19/19 02:00 76 25 145/60 (88) 100 03/19/19 02:00 76 25 145/60 (88) 100 03/19/19 01:00 77 0 136/51 (79) 100 03/19/19 01:00 77 0 136/51 (79) 100 03/19/19 00:45 74 19 30 03/19/19 00:00 78 0 142/57 (85) 100 03/19/19 00:00 81 03/19/19 00:00 98.5 80 12 147/59 (88) 100 03/19/19 00:00 30 03/19/19 00:00 Mechanical Ventilator Mechanical Ventilator 03/18/19 23:00 80 12 147/59 (88) 100 03/18/19 22:52 76 20 30 03/18/19 22:00 76 0 130/48 (75) 100 03/18/19 21:20 82 26 30 03/18/19 21:00 80 0 140/58 (85) 98 03/18/19 21:00 147/58 03/18/19 20:00 97.8 75 16 139/56 (83) 99 03/18/19 20:00 30 03/18/19 20:00 Mechanical Ventilator Mechanical Ventilator 03/18/19 20:00 78 03/18/19 19:19 73 15 30 03/18/19 19:00 98.9 85 26 148/58 (88) 100 03/18/19 18:00 77 26 132/51 (78) 100 03/18/19 17:21 88 31 30 03/18/19 17:00 75 24 139/52 (81) 100 03/18/19 16:00 78 13 132/59 (83) 100 03/18/19 16:00 80 03/18/19 16:00 Mechanical Ventilator Mechanical Ventilator 03/18/19 16:00 30 03/18/19 15:00 98.7 85 15 144/65 (91) 99 03/18/19 14:45 77 15 30 03/18/19 14:00 84 15 155/67 (96) 98 03/18/19 13:00 80 15 141/56 (84) 98 03/18/19 12:43 77 03/18/19 12:30 87 30 30 03/18/19 12:00 77 20 121/50 (73) 99 03/18/19 12:00 30 03/18/19 12:00 Mechanical Ventilator Mechanical Ventilator 03/18/19 11:00 75 18 129/52 (77) 100 Intake and Output 03/18/19 03/19/19 18:59 06:59 Intake Total 770 ml 1585 ml Output Total 760 ml 2210 ml Balance 10 ml -625 ml Free Water 100 ml IV Total 50 ml 765 ml Tube Feeding 720 ml 720 ml Output Urine Total 760 ml 2210 ml # Bowel Movements 1 Laboratory Tests 03/18/19 21:30: Vancomycin Level Trough 11.1 03/19/19 05:30: White Blood Count 5.6, Red Blood Count 2.54L, Hemoglobin 8.4L, Hematocrit 25.7L , Mean Corpuscular Volume 101H, Mean Corpuscular Hemoglobin 33.1H, Mean Corpuscular Hemoglobin Concent 32.7, Red Cell Distribution Width 13.5, Platelet Count 226, Mean Platelet Volume 6.9, Neutrophils (%) (Auto) 66.1, Lymphocytes (% ) (Auto) 23.2, Monocytes (%) (Auto) 7.4, Eosinophils (%) (Auto) 2.2, Basophils ( %) (Auto) 1.0, Sodium Level 143, Potassium Level 3.6, Chloride Level 107, Carbon Dioxide Level 33H, Anion Gap 3L, Blood Urea Nitrogen 15, Creatinine 0.5L , Estimat Glomerular Filtration Rate , Glucose Level 129H, Calcium Level 8.2L Height (Feet): 5 Height (Inches): 8.00 Weight (Pounds): 164 General Appearance: WD/WN, no apparent distress, other - on the vent EENT: PERRL/EOMI Neck: non-tender Cardiovascular: normal rate, regular rhythm, JVD - high Respiratory/Chest: decreased breath sounds, crackles/rales Extremities: normal range of motion Neurologic: no motor/sensory deficits Ulisses Tello MD March 19, 2019 10:54
[2019-03-19] MEDS: Vancomycin 500mg/D5W 110ml IVPB SCH ×4 (11:19→22:50)
--- NOTE | 2019-03-19 16:51 | Cardiology Progress Note ---
Assessment/Plan Assessment/Plan 1. Hypernatremia free water deficit 2. Likely demand ischemia 3. Metabolic alkalosis. 4. altered mentation secondary to above. 5. Anemia, mild. 6. History of seizures. 7. Diabetes history. 8. Hypertension history. 9. hs of diastolic failure 10.New LV systolic dysfunction ? 11. bactermia 12 edema bp is higer to day remain on the vent failed weaning 03/10 echo report noted some echo views were reviewed may not have as bad an lv function as reported atlhgouh the images are not typical stress induced cm may be in the differential on iv abx continue vent support not tachy hemodynamic are better tele monitor sinus on iv abx diuretics extra this evening weaning at this time d/w dtr at bedside Subjective ROS Limited/Unobtainable: Yes Cardiovascular: Reports: chest pain Objective Last 24 Hour Vital Signs Date Time Temp Pulse Resp B/P (MAP) Pulse Ox O2 Delivery O2 Flow Rate FiO2 03/19/19 15:00 87 18 138/50 (79) 100 03/19/19 14:43 82 32 03/19/19 14:00 80 33 131/58 (82) 100 03/19/19 13:00 77 28 128/43 (71) 100 03/19/19 12:45 73 30 03/19/19 12:00 99.0 74 17 143/53 (83) 100 03/19/19 12:00 74 03/19/19 12:00 Mechanical Ventilator Mechanical Ventilator 03/19/19 11:00 70 16 130/53 (78) 99 03/19/19 10:41 81 30 30 03/19/19 10:00 71 27 129/52 (77) 99 03/19/19 09:00 77 18 150/62 (91) 100 03/19/19 08:46 30 03/19/19 08:45 30 03/19/19 08:45 100 03/19/19 08:00 73 03/19/19 08:00 Mechanical Ventilator Mechanical Ventilator 03/19/19 08:00 30 03/19/19 08:00 71 15 111/45 (67) 99 03/19/19 07:05 75 20 30 03/19/19 07:00 74 21 136/59 (84) 100 03/19/19 06:00 74 21 136/59 (84) 100 03/19/19 05:00 98.5 74 16 132/54 (80) 100 03/19/19 04:56 79 27 30 03/19/19 04:00 30 03/19/19 04:00 74 16 132/54 (80) 100 03/19/19 04:00 Mechanical Ventilator Mechanical Ventilator 03/19/19 04:00 80 03/19/19 04:00 74 16 132/54 (80) 100 03/19/19 04:00 98.5 74 16 132/54 (80) 100 03/19/19 03:30 83 25 30 03/19/19 03:00 75 17 134/56 (82) 100 03/19/19 03:00 75 17 134/56 (82) 100 03/19/19 03:00 75 17 134/56 (82) 100 03/19/19 02:00 76 25 145/60 (88) 100 03/19/19 02:00 76 25 145/60 (88) 100 03/19/19 01:00 77 0 136/51 (79) 100 03/19/19 01:00 77 0 136/51 (79) 100 03/19/19 00:45 74 19 30 03/19/19 00:00 78 0 142/57 (85) 100 03/19/19 00:00 81 03/19/19 00:00 98.5 80 12 147/59 (88) 100 03/19/19 00:00 30 03/19/19 00:00 Mechanical Ventilator Mechanical Ventilator 03/18/19 23:00 80 12 147/59 (88) 100 03/18/19 22:52 76 20 30 03/18/19 22:00 76 0 130/48 (75) 100 03/18/19 21:20 82 26 30 03/18/19 21:00 80 0 140/58 (85) 98 03/18/19 21:00 147/58 03/18/19 20:00 97.8 75 16 139/56 (83) 99 03/18/19 20:00 30 03/18/19 20:00 Mechanical Ventilator Mechanical Ventilator 03/18/19 20:00 78 03/18/19 19:19 73 15 30 03/18/19 19:00 98.9 85 26 148/58 (88) 100 03/18/19 18:00 77 26 132/51 (78) 100 03/18/19 17:21 88 31 30 03/18/19 17:00 75 24 139/52 (81) 100 General Appearance: no apparent distress, obese, on vent, patient on isolation Cardiovascular: normal rate Respiratory/Chest: lungs clear - ant Abdomen: normal bowel sounds, non tender, soft Extremities: moderate edema Intake and Output 03/18/19 03/19/19 19:00 07:00 Intake Total 770 ml 1535 ml Output Total 710 ml 2360 ml Balance 60 ml -825 ml Free Water 100 ml IV Total 50 ml 715 ml Tube Feeding 720 ml 720 ml Output Urine Total 710 ml 2360 ml # Bowel Movements 1 Laboratory Tests Test 03/18/19 21:30 03/19/19 05:30 Vancomycin Level Trough 11.1 ug/mL (5.0-12.0) White Blood Count 5.6 K/UL (4.8-10.8) Red Blood Count 2.54 M/UL (4.20-5.40) L Hemoglobin 8.4 G/DL (12.0-16.0) L Hematocrit 25.7 % (37.0-47.0) L Mean Corpuscular Volume 101 FL (80-99) H Mean Corpuscular Hemoglobin 33.1 PG (27.0-31.0) H Mean Corpuscular Hemoglobin Concent 32.7 G/DL (32.0-36.0) Red Cell Distribution Width 13.5 % (11.6-14.8) Platelet Count 226 K/UL (150-450) Mean Platelet Volume 6.9 FL (6.5-10.1) Neutrophils (%) (Auto) 66.1 % (45.0-75.0) Lymphocytes (%) (Auto) 23.2 % (20.0-45.0) Monocytes (%) (Auto) 7.4 % (1.0-10.0) Eosinophils (%) (Auto) 2.2 % (0.0-3.0) Basophils (%) (Auto) 1.0 % (0.0-2.0) Sodium Level 143 MMOL/L (136-145) Potassium Level 3.6 MMOL/L (3.5-5.1) Chloride Level 107 MMOL/L (98-107) Carbon Dioxide Level 33 MMOL/L (21-32) H Anion Gap 3 mmol/L (5-15) L Blood Urea Nitrogen 15 mg/dL (7-18) Creatinine 0.5 MG/DL (0.55-1.30) L Estimat Glomerular Filtration Rate mL/min (>60) Glucose Level 129 MG/DL (74-106) H Calcium Level 8.2 MG/DL (8.5-10.1) L Allen Bliss MD March 19, 2019 16:51
[2019-03-19] MEDS: Dyna-Hex 2% Top Sol 2oz TOPIC SCH (20:02)
[2019-03-20] VITALS (24 sets, daily range): BP systolic 119–166; BP diastolic 48–90
[2019-03-20] MEDS: Meropenem 1 GM in NS 55 ML IVPB SCH ×2 (00:06→11:56)
[2019-03-20] MEDS: NovoLOG Insulin Flexpen SUBQ SCH ×4 (00:08→17:40)
[2019-03-20] MEDS: Bumetanide 2.5mg/10ml Inj IVP SCH ×3 (02:38→22:43)
[2019-03-20 06:09] LABS: BASOPHILS % (AUTO) 0.7 % (0.0-2.0); EOSINOPHILS % (AUTO) 4.1 % (0.0-3.0); HEMATOCRIT 27.6 % (37.0-47.0); HEMOGLOBIN 9.1 G/DL (12.0-16.0); LYMPHOCYTES % (AUTO) 29.2 % (20.0-45.0); MEAN CORPUSCULAR VOLUME 101 FL (80-99); MONOCYTES % (AUTO) 5.3 % (1.0-10.0); NEUTROPHILS % (AUTO) 60.7 % (45.0-75.0); PLATELET COUNT 263 K/UL (150-450); RED BLOOD COUNT 2.74 M/UL (4.20-5.40); RED CELL DISTRIBUTION WIDTH 13.2 % (11.6-14.8); WHITE BLOOD COUNT 6.7 K/UL (4.8-10.8)
[2019-03-20 06:31] LABS: ALANINE AMINOTRANSFERASE 13 U/L (12-78); ALBUMIN 1.6 G/DL (3.4-5.0); ALBUMIN/GLOBULIN RATIO 0.3 (1.0-2.7); ALKALINE PHOSPHATASE 93 U/L (46-116); ANION GAP 0 mmol/L (5-15); ASPARTATE AMINO TRANSFERASE 23 U/L (15-37); BILIRUBIN,TOTAL 0.1 MG/DL (0.2-1.0); BLOOD UREA NITROGEN 15 mg/dL (7-18); CALCIUM 8.4 MG/DL (8.5-10.1); CARBON DIOXIDE 38 MMOL/L (21-32); CHLORIDE 106 MMOL/L (98-107); CREATININE 0.6 MG/DL (0.55-1.30); SODIUM 144 MMOL/L (136-145)
--- NOTE | 2019-03-20 08:42 | Diagnostic Imaging Report ---
EXAM: XR Chest, 1 View CLINICAL HISTORY: INFECT TECHNIQUE: Frontal view of the chest. COMPARISON: Chest x-ray dated 03/17/19 FINDINGS: Lungs: Persistent pulmonary vascular congestion. Subsegmental atelectasis versus infiltrates in the lung bases. Pleural space: Small bilateral pleural effusions. Heart: Mildly enlarged, unchanged. Mediastinum: Unremarkable. Bones/joints: Degenerative changes throughout the visualized spine and shoulder joints. Tubes, lines and devices: Unchanged positioning of a right IJ central venous catheter. Endotracheal tube tip approximately 6.5 cm above the sandi, not significantly changed. EKG leads overlie the thorax. IMPRESSION: No significant interval change compared to the prior exam. Persistent pulmonary vascular congestion with small bilateral pleural effusions and subsegmental atelectasis versus infiltrates in the lung bases.
[2019-03-20] MEDS: Pantoprazole Inj IVP SCH (09:09)
[2019-03-20] MEDS: Phenytoin Susp 100mg/4ml GT SCH ×2 (09:09→20:33)
--- NOTE | 2019-03-20 10:17 | Pulmonolgy Critical Care Note ---
Critical Care - Asmt/Plan Assessment/Plan: 1. Acute respiratory failure. 2. Severe dehydration with shock. 3. Severe hypernatremia. 4. Multi-infarct dementia. 5. Possible acute myocardial infarction. 6. History of heart failure. 7. History of atrial fibrillation. 8. Gastric tube with dysphagia. 9. History of chronic obstructive pulmonary disease. 10. History of seizures with therapeutic Dilantin level. 11. History of hypertension. 12. Hyperlipidemia. 13. Diabetes. 14. Sepsis - [employer] bacteremia weaning today - as tolerated ID following may need trach if not weanable disc w RN cont present rx Respiratory: weaning trial Cardiac: continue to monitor HR/BP Gastrointestinal: continue feedings/current rate Prophylaxis: Protonix Disposition: keep in ICU Time Spent (Minutes): 50 Notes Reviewed: patient educator Discussed with: nurses Critical Care - Objective Last 24 Hour Vital Signs Date Time Temp Pulse Resp B/P (MAP) Pulse Ox O2 Delivery O2 Flow Rate FiO2 03/20/19 10:00 76 31 159/64 (95) 100 03/20/19 09:43 100 03/20/19 09:43 72 30 30 30 03/20/19 09:00 98.0 72 16 158/68 (98) 100 03/20/19 08:56 71 14 30 03/20/19 08:00 98.0 75 20 135/58 (83) 100 03/20/19 08:00 30 03/20/19 08:00 Mechanical Ventilator Mechanical Ventilator 03/20/19 07:23 75 17 30 03/20/19 07:17 75 03/20/19 07:00 73 18 136/52 (80) 100 03/20/19 06:00 77 18 159/60 (93) 100 03/20/19 05:20 80 20 30 03/20/19 05:00 80 18 145/90 (108) 100 03/20/19 04:00 74 03/20/19 04:00 98.4 78 18 160/67 (98) 100 03/20/19 04:00 30 03/20/19 04:00 Mechanical Ventilator Mechanical Ventilator 03/20/19 03:06 73 19 30 03/20/19 03:00 74 18 147/60 (89) 100 03/20/19 02:00 72 18 141/56 (84) 100 03/20/19 01:17 75 19 30 03/20/19 01:00 76 18 146/55 (85) 100 03/20/19 00:00 30 03/20/19 00:00 97.6 78 16 155/63 (93) 100 03/20/19 00:00 Mechanical Ventilator Mechanical Ventilator 03/20/19 00:00 81 03/19/19 23:00 78 18 156/59 (91) 99 03/19/19 22:45 78 19 30 03/19/19 22:00 78 18 131/55 (80) 99 03/19/19 21:00 77 18 147/59 (88) 100 03/19/19 21:00 122/50 03/19/19 20:48 78 20 30 03/19/19 20:00 Mechanical Ventilator Mechanical Ventilator 03/19/19 20:00 77 03/19/19 20:00 97.8 77 16 122/50 (74) 99 03/19/19 20:00 30 03/19/19 19:03 78 16 30 03/19/19 19:00 78 18 149/58 (88) 99 03/19/19 18:00 72 18 144/56 (85) 99 03/19/19 17:00 86 20 161/62 (95) 99 03/19/19 16:57 91 34 03/19/19 16:56 91 30 99 Mechanical Ventilator 30 03/19/19 16:00 Mechanical Ventilator Mechanical Ventilator 03/19/19 16:00 99.2 80 16 138/51 (80) 99 03/19/19 16:00 85 03/19/19 16:00 30 03/19/19 15:00 87 18 138/50 (79) 100 03/19/19 14:43 82 32 03/19/19 14:00 80 33 131/58 (82) 100 03/19/19 13:00 77 28 128/43 (71) 100 03/19/19 12:45 73 30 03/19/19 12:45 30 03/19/19 12:00 99.0 74 17 143/53 (83) 100 03/19/19 12:00 30 03/19/19 12:00 74 03/19/19 12:00 Mechanical Ventilator Mechanical Ventilator 03/19/19 11:00 70 16 130/53 (78) 99 03/19/19 10:41 81 30 30 Status: obtunded Condition: critical Lungs: rhonchi Heart: HR/BP stable Abdomen: soft, non-tender Extremities: edema Accucheck: 172 Critical Care - Subjective ROS Limited/Unobtainable: Yes Condition: critical FI02: 30 Vent Support Breath Rate: 14 Vent Support Mode: CPAP Vent Tidal Volume: 400 Sputum Amount: Small PEEP: 5.0 PIP: 21 Tube Feeding Amount: 60 I&O: Intake and Output 03/19/19 03/20/19 18:59 06:59 Intake Total 2007 ml 945 ml Output Total 1920 ml 2325 ml Balance 87 ml -1380 ml Free Water 800 ml 300 ml IV Total 434 ml 165 ml Tube Feeding 720 ml 480 ml Other 53 ml Output Urine Total 1920 ml 2325 ml Subjective: unresponsive on the vent does not follow commands failed weaning no cp nv or bleeding tolerating tf no pressors no new cxr ET-Tube: 7.5 ET Position: 22 Labs: Current Medications Medications (Trade) Dose Ordered Sig/Singh Route PRN Reason Start Time Stop Time Status Last Admin Dose Admin Acetaminophen (Tylenol) 650 mg Q4H PRN GT Mild Pain/Temp > 100.5 03/09/19 20:30 04/08/19 20:29 03/17/19 16:35 Acetazolamide (Diamox 500mg Inj) 500 mg Q8HR IVP 03/20/19 14:00 03/21/19 06:01 03/20/19 13:13 Bumetanide (Bumex) 2 mg Q8HR IVP 03/20/19 14:00 03/21/19 06:01 03/20/19 14:13 Chlorhexidine Gluconate (Azra-Hex 2%) 1 applic DAILY@2000 TOPIC 03/10/19 20:00 04/09/19 19:59 03/20/19 20:32 Dextrose (Dextrose 50%) 25 ml Q30M PRN IV Hypoglycemia 03/09/19 21:00 04/08/19 20:59 Dextrose (Dextrose 50%) 50 ml Q30M PRN IV Hypoglycemia 03/09/19 21:00 04/08/19 20:59 Insulin Aspart (NovoLOG) EVERY 6 HOURS SUBQ 03/10/19 00:00 04/09/19 00:00 03/20/19 17:40 Lisinopril (Zestril) 2.5 mg DAILY GT 03/20/19 15:00 04/19/19 14:59 03/20/19 15:21 Meropenem 1 gm/ Sodium Chloride 55 ml @ 110 mls/hr Q12HR@0000,1200 IVPB 03/21/19 00:00 03/25/19 23:59 Pantoprazole (Protonix) 40 mg DAILY IVP 03/10/19 09:00 04/09/19 08:59 03/20/19 09:09 Phenytoin (Dilantin) 125 mg Q12HR GT 03/09/19 21:00 04/08/19 20:59 03/20/19 20:33 Vancomycin HCl (Vanco rx to dose) 1 ea DAILY PRN MISC Per rx protocol 03/18/19 14:41 04/17/19 14:40 Vancomycin HCl 750 mg/Sodium Chloride 275 ml @ 183.333 mls/hr Q12H IVPB 03/20/19 12:00 03/25/19 11:59 03/20/19 11:57 Laboratory Tests Test 03/20/19 04:10 03/20/19 10:30 03/20/19 11:25 White Blood Count 6.7 K/UL (4.8-10.8) Red Blood Count 2.74 M/UL (4.20-5.40) L Hemoglobin 9.1 G/DL (12.0-16.0) L Hematocrit 27.6 % (37.0-47.0) L Mean Corpuscular Volume 101 FL (80-99) H Mean Corpuscular Hemoglobin 33.3 PG (27.0-31.0) H Mean Corpuscular Hemoglobin Concent 33.0 G/DL (32.0-36.0) Red Cell Distribution Width 13.2 % (11.6-14.8) Platelet Count 263 K/UL (150-450) Mean Platelet Volume 6.8 FL (6.5-10.1) Neutrophils (%) (Auto) 60.7 % (45.0-75.0) Lymphocytes (%) (Auto) 29.2 % (20.0-45.0) Monocytes (%) (Auto) 5.3 % (1.0-10.0) Eosinophils (%) (Auto) 4.1 % (0.0-3.0) H Basophils (%) (Auto) 0.7 % (0.0-2.0) Sodium Level 144 MMOL/L (136-145) Potassium Level 4.0 MMOL/L (3.5-5.1) Chloride Level 106 MMOL/L (98-107) Carbon Dioxide Level 38 MMOL/L (21-32) H Anion Gap 0 mmol/L (5-15) L Blood Urea Nitrogen 15 mg/dL (7-18) Creatinine 0.6 MG/DL (0.55-1.30) Estimat Glomerular Filtration Rate mL/min (>60) Glucose Level 154 MG/DL (74-106) H Calcium Level 8.4 MG/DL (8.5-10.1) L Total Bilirubin 0.1 MG/DL (0.2-1.0) L Aspartate Amino Transf (AST/SGOT) 23 U/L (15-37) Alanine Aminotransferase (ALT/SGPT) 13 U/L (12-78) Alkaline Phosphatase 93 U/L (46-116) Total Protein 6.4 G/DL (6.4-8.2) Albumin 1.6 G/DL (3.4-5.0) L Globulin 4.8 g/dL Albumin/Globulin Ratio 0.3 (1.0-2.7) L Vancomycin Level Trough 11.9 ug/mL (5.0-12.0) Arterial Blood pH 7.523 (7.350-7.450) Arterial Blood Partial Pressure CO2 40.0 mmHg (35.0-45.0) Arterial Blood Partial Pressure O2 114.4 mmHg (75.0-100.0) H Arterial Blood HCO3 32.2 mmol/L (22.0-26.0) H Arterial Blood Oxygen Saturation 98.1 % (95-100) Arterial Blood Base Excess 8.6 (-2-2) H Jose Luis Test Positive Nia Rosa DO March 20, 2019 10:17
[2019-03-20] MEDS ORDERED: NS 275ml ONE ×2 (10:56→14:37)
--- NOTE | 2019-03-20 11:11 | Nephrology Progress Note ---
Assessment/Plan Assessment 1) Hypernatremia has resolved 2) coag + staph bacteremia ? source 3) S/P respiratory failure on the Vent 4) ? CHF Plan: IV ATB Bumex 2 mg IV Q8 x3 KCL 40 MEQ once Diamox 500 mg IV Q8 x3 Water flushes 300 cc Q8 per NG Labs in AM Subjective Subjective She is still on the vent, still good diuresis, She tolerated Cpap x 5 hours, CO2 is 38, CXR still some CHF, good diuresis Objective Objective Last 24 Hour Vital Signs Date Time Temp Pulse Resp B/P (MAP) Pulse Ox O2 Delivery O2 Flow Rate FiO2 03/20/19 10:00 76 31 159/64 (95) 100 03/20/19 09:43 100 03/20/19 09:43 72 30 30 30 03/20/19 09:00 98.0 72 16 158/68 (98) 100 03/20/19 08:56 71 14 30 03/20/19 08:00 98.0 75 20 135/58 (83) 100 03/20/19 08:00 30 03/20/19 08:00 Mechanical Ventilator Mechanical Ventilator 03/20/19 07:23 75 17 30 03/20/19 07:17 75 03/20/19 07:00 73 18 136/52 (80) 100 03/20/19 06:00 77 18 159/60 (93) 100 03/20/19 05:20 80 20 30 03/20/19 05:00 80 18 145/90 (108) 100 03/20/19 04:00 74 03/20/19 04:00 98.4 78 18 160/67 (98) 100 03/20/19 04:00 30 03/20/19 04:00 Mechanical Ventilator Mechanical Ventilator 03/20/19 03:06 73 19 30 03/20/19 03:00 74 18 147/60 (89) 100 03/20/19 02:00 72 18 141/56 (84) 100 03/20/19 01:17 75 19 30 03/20/19 01:00 76 18 146/55 (85) 100 03/20/19 00:00 30 03/20/19 00:00 97.6 78 16 155/63 (93) 100 03/20/19 00:00 Mechanical Ventilator Mechanical Ventilator 03/20/19 00:00 81 03/19/19 23:00 78 18 156/59 (91) 99 03/19/19 22:45 78 19 30 03/19/19 22:00 78 18 131/55 (80) 99 03/19/19 21:00 77 18 147/59 (88) 100 03/19/19 21:00 122/50 03/19/19 20:48 78 20 30 03/19/19 20:00 Mechanical Ventilator Mechanical Ventilator 03/19/19 20:00 77 03/19/19 20:00 97.8 77 16 122/50 (74) 99 03/19/19 20:00 30 03/19/19 19:03 78 16 30 03/19/19 19:00 78 18 149/58 (88) 99 03/19/19 18:00 72 18 144/56 (85) 99 03/19/19 17:00 86 20 161/62 (95) 99 03/19/19 16:57 91 34 03/19/19 16:56 91 30 99 Mechanical Ventilator 30 03/19/19 16:00 Mechanical Ventilator Mechanical Ventilator 03/19/19 16:00 99.2 80 16 138/51 (80) 99 03/19/19 16:00 85 03/19/19 16:00 30 03/19/19 15:00 87 18 138/50 (79) 100 03/19/19 14:43 82 32 03/19/19 14:00 80 33 131/58 (82) 100 03/19/19 13:00 77 28 128/43 (71) 100 03/19/19 12:45 73 30 03/19/19 12:45 30 03/19/19 12:00 99.0 74 17 143/53 (83) 100 03/19/19 12:00 30 03/19/19 12:00 74 03/19/19 12:00 Mechanical Ventilator Mechanical Ventilator Intake and Output 03/19/19 03/20/19 18:59 06:59 Intake Total 2007 ml 945 ml Output Total 1920 ml 2325 ml Balance 87 ml -1380 ml Free Water 800 ml 300 ml IV Total 434 ml 165 ml Tube Feeding 720 ml 480 ml Other 53 ml Output Urine Total 1920 ml 2325 ml Laboratory Tests 03/20/19 04:10: White Blood Count 6.7, Red Blood Count 2.74L, Hemoglobin 9.1L, Hematocrit 27.6L , Mean Corpuscular Volume 101H, Mean Corpuscular Hemoglobin 33.3H, Mean Corpuscular Hemoglobin Concent 33.0, Red Cell Distribution Width 13.2, Platelet Count 263, Mean Platelet Volume 6.8, Neutrophils (%) (Auto) 60.7, Lymphocytes (% ) (Auto) 29.2, Monocytes (%) (Auto) 5.3, Eosinophils (%) (Auto) 4.1H, Basophils (%) (Auto) 0.7, Sodium Level 144, Potassium Level 4.0, Chloride Level 106, Carbon Dioxide Level 38H, Anion Gap 0L, Blood Urea Nitrogen 15, Creatinine 0.6, Estimat Glomerular Filtration Rate , Glucose Level 154H, Calcium Level 8.4L, Total Bilirubin 0.1L, Aspartate Amino Transf (AST/SGOT) 23, Alanine Aminotransferase (ALT/SGPT) 13, Alkaline Phosphatase 93, Total Protein 6.4, Albumin 1.6L, Globulin 4.8, Albumin/Globulin Ratio 0.3L 03/20/19 10:30: Vancomycin Level Trough 11.9 Height (Feet): 5 Height (Inches): 8.00 Weight (Pounds): 170 General Appearance: WD/WN, other - On the vent EENT: PERRL/EOMI Neck: non-tender, normal alignment Cardiovascular: normal rate, regular rhythm Respiratory/Chest: crackles/rales Abdomen: normal bowel sounds, non tender, soft Extremities: normal range of motion Neurologic: no motor/sensory deficits, disoriented Ulisses Tello MD March 20, 2019 11:11
[2019-03-20] MEDS: Vancomycin 500mg/D5W 110ml IVPB SCH ×2 (11:29)
[2019-03-20] MEDS: Vancomycin 750mg/NS 275ml IVPB SCH ×2 (11:57)
[2019-03-20] MEDS ORDERED: Vancomycin 500mg/D5W 110ml IVPB SCH ×2 (12:00)
[2019-03-20] MEDS: acetaZOLAMIDE 500mg Inj IVP SCH ×2 (13:13→22:50)
[2019-03-20] MEDS ORDERED: Lisinopril 2.5mg tab ORAL SCH (14:30)
--- NOTE | 2019-03-20 14:36 | Cardiology Progress Note ---
Assessment/Plan Problem List: (1) Systolic heart failure (2) Dyspnea (3) Respiratory distress (4) CVA, old, hemiparesis (5) Dementia Status: stable, progressing Status Narrative Pt w/ LV systolic dysfunction, EF 25-30% by ECHO. i/o s + * L since admission. She is currently on vent- beng weaned. Assessment/Plan Continue weaning per pulmonary. Agree w/ diuretics - diamox, lasix for pulmonary vascular congestion Will start SHIMON inhibitors for afterload reduction and hypertension. followup labs in am Subjective ROS Limited/Unobtainable: Yes Subjective Cardiology for Dr. Bliss Pt intubated, opens eyes to voice. Objective Last 24 Hour Vital Signs Date Time Temp Pulse Resp B/P (MAP) Pulse Ox O2 Delivery O2 Flow Rate FiO2 03/20/19 14:00 75 31 161/59 (93) 100 03/20/19 13:15 73 29 30 03/20/19 13:00 74 31 162/63 (96) 100 03/20/19 12:16 73 03/20/19 12:00 Mechanical Ventilator Mechanical Ventilator 03/20/19 12:00 98.3 73 33 146/57 (86) 100 03/20/19 12:00 30 03/20/19 11:04 76 33 30 03/20/19 11:00 78 33 166/66 (99) 100 03/20/19 10:00 76 31 159/64 (95) 100 03/20/19 09:43 100 03/20/19 09:43 72 30 30 30 03/20/19 09:00 98.0 72 16 158/68 (98) 100 03/20/19 08:56 71 14 30 03/20/19 08:00 98.0 75 20 135/58 (83) 100 03/20/19 08:00 30 03/20/19 08:00 Mechanical Ventilator Mechanical Ventilator 03/20/19 07:23 75 17 30 03/20/19 07:17 75 03/20/19 07:00 73 18 136/52 (80) 100 03/20/19 06:00 77 18 159/60 (93) 100 03/20/19 05:20 80 20 30 03/20/19 05:00 80 18 145/90 (108) 100 03/20/19 04:00 74 03/20/19 04:00 98.4 78 18 160/67 (98) 100 03/20/19 04:00 30 03/20/19 04:00 Mechanical Ventilator Mechanical Ventilator 03/20/19 03:06 73 19 30 03/20/19 03:00 74 18 147/60 (89) 100 03/20/19 02:00 72 18 141/56 (84) 100 03/20/19 01:17 75 19 30 03/20/19 01:00 76 18 146/55 (85) 100 03/20/19 00:00 30 03/20/19 00:00 97.6 78 16 155/63 (93) 100 03/20/19 00:00 Mechanical Ventilator Mechanical Ventilator 03/20/19 00:00 81 03/19/19 23:00 78 18 156/59 (91) 99 03/19/19 22:45 78 19 30 03/19/19 22:00 78 18 131/55 (80) 99 03/19/19 21:00 77 18 147/59 (88) 100 03/19/19 21:00 122/50 03/19/19 20:48 78 20 30 03/19/19 20:00 Mechanical Ventilator Mechanical Ventilator 03/19/19 20:00 77 03/19/19 20:00 97.8 77 16 122/50 (74) 99 03/19/19 20:00 30 03/19/19 19:03 78 16 30 03/19/19 19:00 78 18 149/58 (88) 99 03/19/19 18:00 72 18 144/56 (85) 99 03/19/19 17:00 86 20 161/62 (95) 99 03/19/19 16:57 91 34 03/19/19 16:56 91 30 99 Mechanical Ventilator 30 03/19/19 16:00 Mechanical Ventilator Mechanical Ventilator 03/19/19 16:00 99.2 80 16 138/51 (80) 99 03/19/19 16:00 85 03/19/19 16:00 30 03/19/19 15:00 87 18 138/50 (79) 100 03/19/19 14:43 82 32 General Appearance: WD/WN, obese, on vent EENT: PERRL/EOMI Neck: supple, no JVD Rhythm: NSR Cardiovascular: normal rate, regular rhythm, no gallop/murmur Respiratory/Chest: other - clear anteriorly Abdomen: non tender, soft, other - g tube Extremities: moderate edema Intake and Output 03/19/19 03/20/19 18:59 06:59 Intake Total 2007 ml 945 ml Output Total 1920 ml 2325 ml Balance 87 ml -1380 ml Free Water 800 ml 300 ml IV Total 434 ml 165 ml Tube Feeding 720 ml 480 ml Other 53 ml Output Urine Total 1920 ml 2325 ml Laboratory Tests Test 03/20/19 04:10 03/20/19 10:30 03/20/19 11:25 White Blood Count 6.7 K/UL (4.8-10.8) Red Blood Count 2.74 M/UL (4.20-5.40) L Hemoglobin 9.1 G/DL (12.0-16.0) L Hematocrit 27.6 % (37.0-47.0) L Mean Corpuscular Volume 101 FL (80-99) H Mean Corpuscular Hemoglobin 33.3 PG (27.0-31.0) H Mean Corpuscular Hemoglobin Concent 33.0 G/DL (32.0-36.0) Red Cell Distribution Width 13.2 % (11.6-14.8) Platelet Count 263 K/UL (150-450) Mean Platelet Volume 6.8 FL (6.5-10.1) Neutrophils (%) (Auto) 60.7 % (45.0-75.0) Lymphocytes (%) (Auto) 29.2 % (20.0-45.0) Monocytes (%) (Auto) 5.3 % (1.0-10.0) Eosinophils (%) (Auto) 4.1 % (0.0-3.0) H Basophils (%) (Auto) 0.7 % (0.0-2.0) Sodium Level 144 MMOL/L (136-145) Potassium Level 4.0 MMOL/L (3.5-5.1) Chloride Level 106 MMOL/L (98-107) Carbon Dioxide Level 38 MMOL/L (21-32) H Anion Gap 0 mmol/L (5-15) L Blood Urea Nitrogen 15 mg/dL (7-18) Creatinine 0.6 MG/DL (0.55-1.30) Estimat Glomerular Filtration Rate mL/min (>60) Glucose Level 154 MG/DL (74-106) H Calcium Level 8.4 MG/DL (8.5-10.1) L Total Bilirubin 0.1 MG/DL (0.2-1.0) L Aspartate Amino Transf (AST/SGOT) 23 U/L (15-37) Alanine Aminotransferase (ALT/SGPT) 13 U/L (12-78) Alkaline Phosphatase 93 U/L (46-116) Total Protein 6.4 G/DL (6.4-8.2) Albumin 1.6 G/DL (3.4-5.0) L Globulin 4.8 g/dL Albumin/Globulin Ratio 0.3 (1.0-2.7) L Vancomycin Level Trough 11.9 ug/mL (5.0-12.0) Arterial Blood pH 7.523 (7.350-7.450) Arterial Blood Partial Pressure CO2 40.0 mmHg (35.0-45.0) Arterial Blood Partial Pressure O2 114.4 mmHg (75.0-100.0) H Arterial Blood HCO3 32.2 mmol/L (22.0-26.0) H Arterial Blood Oxygen Saturation 98.1 % (95-100) Arterial Blood Base Excess 8.6 (-2-2) H Jose Luis Test Positive Donya Tamez MD March 20, 2019 14:36
[2019-03-20] MEDS ORDERED: NS Irrig 1000ml ONE (14:37)
[2019-03-20] MEDS ORDERED: NS 500ML ONE (14:37)
[2019-03-20] MEDS ORDERED: Tubing IV Secondary IV ONE (14:37)
[2019-03-20] MEDS: Lisinopril 2.5mg tab GT SCH (15:21)
--- NOTE | 2019-03-20 16:27 | Infectious Diseases Prog Note ---
Assessment/Plan Assessment/Plan ASSESSMENT/PLAN: 1. 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 Respiratory failure, on vent. 3. Diabetes. 4. Hypertension. 5. Blood sugar and blood pressure treatment per primary for diabetes and hypertension. 6. Atrial fibrillation. 7. Heart failure. 8. G-tube. 9. Skin care protocol. 10. Cardiomegaly. 11. CAD and OK. 12. Hyperlipidemia. 13. Seizure disorder. 14. GERD. 15. History of CVA. 16. Allergic to penicillin and sulfa, tolerates meropenem. 17. Social history is negative. 18. Family history is noncontributory. 19. MAR is noted. 20. Case discussed with Dr. Franks. 21. Continue treatment per primary consultants. Subjective Constitutional: Reports: other - lethargic ; Denies: fever HEENT: Reports: congestion Respiratory: Reports: shortness of breath Cardiovascular: Denies: chest pain Gastrointestinal/Abdominal: Denies: nausea, vomiting, diarrhea Genitourinary: Reports: other - + macias Neurologic: Reports: other - lethargic Psychiatric: Reports: other Skin: Denies: rash Endocrine: Reports: other - na Hematologic: Denies: bleeding Musculoskeletal: Reports: other - na Allergies: Coded Allergies: PENICILLINS (Verified Allergy, Unknown, 02/04/18) SULFA (SULFONAMIDE ANTIBIOTICS) (Verified Allergy, Unknown, 02/04/18) SULFACETAMIDE (Unverified Allergy, Unknown, 06/24/18) Objective Vital Signs Last 24 Hour Vital Signs Date Time Temp Pulse Resp B/P (MAP) Pulse Ox O2 Delivery O2 Flow Rate FiO2 03/20/19 15:22 75 28 30 03/20/19 15:21 148/62 03/20/19 15:00 74 30 148/62 (90) 100 03/20/19 14:00 75 31 161/59 (93) 100 03/20/19 13:15 73 29 30 03/20/19 13:00 74 31 162/63 (96) 100 03/20/19 12:16 73 03/20/19 12:00 Mechanical Ventilator Mechanical Ventilator 03/20/19 12:00 98.3 73 33 146/57 (86) 100 03/20/19 12:00 30 03/20/19 11:04 76 33 30 03/20/19 11:00 78 33 166/66 (99) 100 03/20/19 10:00 76 31 159/64 (95) 100 03/20/19 09:43 100 03/20/19 09:43 72 30 30 30 03/20/19 09:00 98.0 72 16 158/68 (98) 100 03/20/19 08:56 71 14 30 03/20/19 08:00 98.0 75 20 135/58 (83) 100 03/20/19 08:00 30 03/20/19 08:00 Mechanical Ventilator Mechanical Ventilator 03/20/19 07:23 75 17 30 03/20/19 07:17 75 03/20/19 07:00 73 18 136/52 (80) 100 03/20/19 06:00 77 18 159/60 (93) 100 03/20/19 05:20 80 20 30 03/20/19 05:00 80 18 145/90 (108) 100 03/20/19 04:00 74 03/20/19 04:00 98.4 78 18 160/67 (98) 100 03/20/19 04:00 30 03/20/19 04:00 Mechanical Ventilator Mechanical Ventilator 03/20/19 03:06 73 19 30 03/20/19 03:00 74 18 147/60 (89) 100 03/20/19 02:00 72 18 141/56 (84) 100 03/20/19 01:17 75 19 30 03/20/19 01:00 76 18 146/55 (85) 100 03/20/19 00:00 30 03/20/19 00:00 97.6 78 16 155/63 (93) 100 03/20/19 00:00 Mechanical Ventilator Mechanical Ventilator 03/20/19 00:00 81 03/19/19 23:00 78 18 156/59 (91) 99 03/19/19 22:45 78 19 30 03/19/19 22:00 78 18 131/55 (80) 99 03/19/19 21:00 77 18 147/59 (88) 100 03/19/19 21:00 122/50 03/19/19 20:48 78 20 30 03/19/19 20:00 Mechanical Ventilator Mechanical Ventilator 03/19/19 20:00 77 03/19/19 20:00 97.8 77 16 122/50 (74) 99 03/19/19 20:00 30 03/19/19 19:03 78 16 30 03/19/19 19:00 78 18 149/58 (88) 99 03/19/19 18:00 72 18 144/56 (85) 99 03/19/19 17:00 86 20 161/62 (95) 99 03/19/19 16:57 91 34 03/19/19 16:56 91 30 99 Mechanical Ventilator 30 Height (Feet): 5 Height (Inches): 8.00 Weight (Pounds): 170 General Appearance: other - on vent HEENT: normocephalic, atraumatic, anicteric, no JVD, other - oral - intubated Respiratory/Chest: crackles/rales, rhonchi - bilaterally Cardiovascular: normal rate, regular rhythm, no gallop/murmur, no JVD Abdomen: normal bowel sounds, soft, non tender, no organomegaly, non distended Genitourinary: other - + macias Extremities: no cyanosis Skin: no rash 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 Findings: Endotracheal tube and right jugular line are stable. Mild pulmonary vascular congestion suspected. IMPRESSION: No change from the prior exam. Mild CHF suspected Chest x-ray - 03/17/19 - Comparison: 03/15/2019 A single view chest radiograph was obtained. Findings: Vascular congestion demonstrated. Tubes and lines are stable. Heart size is mildly enlarged and stable. Small right pleural effusion suspected. IMPRESSION: No change from the previous examination. Suspected CHF Microbiology Date/Time Source Procedure Growth Status 03/09/19 14:10 Blood Blood Culture - Final Staphylococcus Sp Coag Neg Complete 03/09/19 22:00 Sputum Induced Gram Stain - Final Complete 03/09/19 22:00 Sputum Culture - Final Providencia Stuartii Mar[place] Tropicalis Usual Respiratory Minoo Complete 03/11/19 17:00 Indwelling Cath Urine Culture - Final Escherichia Coli - Esbl Complete 03/09/19 14:35 Rectum VRE Culture - Final NO VANCOMYCIN RESISTANT ENTEROCOCCUS ... Complete 03/09/19 14:35 Rectum - Final NO CARBAPENEM-RESISTANT ENTEROBACTERI... Complete Laboratory Tests Test 03/20/19 04:10 03/20/19 10:30 03/20/19 11:25 White Blood Count 6.7 K/UL (4.8-10.8) Red Blood Count 2.74 M/UL (4.20-5.40) L Hemoglobin 9.1 G/DL (12.0-16.0) L Hematocrit 27.6 % (37.0-47.0) L Mean Corpuscular Volume 101 FL (80-99) H Mean Corpuscular Hemoglobin 33.3 PG (27.0-31.0) H Mean Corpuscular Hemoglobin Concent 33.0 G/DL (32.0-36.0) Red Cell Distribution Width 13.2 % (11.6-14.8) Platelet Count 263 K/UL (150-450) Mean Platelet Volume 6.8 FL (6.5-10.1) Neutrophils (%) (Auto) 60.7 % (45.0-75.0) Lymphocytes (%) (Auto) 29.2 % (20.0-45.0) Monocytes (%) (Auto) 5.3 % (1.0-10.0) Eosinophils (%) (Auto) 4.1 % (0.0-3.0) H Basophils (%) (Auto) 0.7 % (0.0-2.0) Sodium Level 144 MMOL/L (136-145) Potassium Level 4.0 MMOL/L (3.5-5.1) Chloride Level 106 MMOL/L (98-107) Carbon Dioxide Level 38 MMOL/L (21-32) H Anion Gap 0 mmol/L (5-15) L Blood Urea Nitrogen 15 mg/dL (7-18) Creatinine 0.6 MG/DL (0.55-1.30) Estimat Glomerular Filtration Rate mL/min (>60) Glucose Level 154 MG/DL (74-106) H Calcium Level 8.4 MG/DL (8.5-10.1) L Total Bilirubin 0.1 MG/DL (0.2-1.0) L Aspartate Amino Transf (AST/SGOT) 23 U/L (15-37) Alanine Aminotransferase (ALT/SGPT) 13 U/L (12-78) Alkaline Phosphatase 93 U/L (46-116) Total Protein 6.4 G/DL (6.4-8.2) Albumin 1.6 G/DL (3.4-5.0) L Globulin 4.8 g/dL Albumin/Globulin Ratio 0.3 (1.0-2.7) L Vancomycin Level Trough 11.9 ug/mL (5.0-12.0) Arterial Blood pH 7.523 (7.350-7.450) Arterial Blood Partial Pressure CO2 40.0 mmHg (35.0-45.0) Arterial Blood Partial Pressure O2 114.4 mmHg (75.0-100.0) H Arterial Blood HCO3 32.2 mmol/L (22.0-26.0) H Arterial Blood Oxygen Saturation 98.1 % (95-100) Arterial Blood Base Excess 8.6 (-2-2) H Jose Luis Test Positive Current Medications Medications (Trade) Dose Ordered Sig/Singh Route PRN Reason Start Time Stop Time Status Last Admin Dose Admin Acetaminophen (Tylenol) 650 mg Q4H PRN GT Mild Pain/Temp > 100.5 03/09/19 20:30 04/08/19 20:29 03/17/19 16:35 Acetazolamide (Diamox 500mg Inj) 500 mg Q8HR IVP 03/20/19 14:00 03/21/19 06:01 03/20/19 13:13 Bumetanide (Bumex) 2 mg Q8HR IVP 03/20/19 14:00 03/21/19 06:01 03/20/19 14:13 Chlorhexidine Gluconate (Azra-Hex 2%) 1 applic DAILY@1999 TOPIC 03/10/19 20:00 04/09/19 19:59 03/19/19 20:02 Dextrose (Dextrose 50%) 25 ml Q30M PRN IV Hypoglycemia 03/09/19 21:00 04/08/19 20:59 Dextrose (Dextrose 50%) 50 ml Q30M PRN IV Hypoglycemia 03/09/19 21:00 04/08/19 20:59 Insulin Aspart (NovoLOG) EVERY 6 HOURS SUBQ 03/10/19 00:00 04/09/19 00:00 03/20/19 11:59 Lisinopril (Zestril) 2.5 mg DAILY GT 03/20/19 15:00 04/19/19 14:59 03/20/19 15:21 Meropenem 1 gm/ Sodium Chloride 55 ml @ 110 mls/hr Q12HR@0000,1200 IVPB 03/17/19 12:40 03/22/19 12:39 03/20/19 11:56 Pantoprazole (Protonix) 40 mg DAILY IVP 03/10/19 09:00 04/09/19 08:59 03/20/19 09:09 Phenytoin (Dilantin) 125 mg Q12HR GT 03/09/19 21:00 04/08/19 20:59 03/20/19 09:09 Vancomycin HCl (Vanco rx to dose) 1 ea DAILY PRN MISC Per rx protocol 03/18/19 14:41 04/17/19 14:40 Vancomycin HCl 750 mg/Sodium Chloride 275 ml @ 183.333 mls/hr Q12H IVPB 03/20/19 12:00 03/25/19 11:59 03/20/19 11:57 Prashanth Osborne MD March 20, 2019 16:27
[2019-03-20] MEDS: Dyna-Hex 2% Top Sol 2oz TOPIC SCH (20:32)
--- NOTE | 2019-03-20 23:51 | Neurology Progress Note ---
Interim History Interim History ROS Limited/Unobtainable: Yes Complaints: AMS Events: No new events Interim History This visit was performed on March 20, [address] Melecio Tavarez Objective Physical Exam Last Vital Signs Date Time Temp Pulse Resp B/P (MAP) Pulse Ox O2 Delivery O2 Flow Rate FiO2 03/20/19 23:00 74 24 30 03/20/19 23:00 135/48 (77) 100 03/20/19 20:00 97.7 03/20/19 20:00 Mechanical Ventilator Mechanical Ventilator Laboratory Tests Test 03/20/19 04:10 03/20/19 10:30 03/20/19 11:25 White Blood Count 6.7 K/UL (4.8-10.8) Red Blood Count 2.74 M/UL (4.20-5.40) L Hemoglobin 9.1 G/DL (12.0-16.0) L Hematocrit 27.6 % (37.0-47.0) L Mean Corpuscular Volume 101 FL (80-99) H Mean Corpuscular Hemoglobin 33.3 PG (27.0-31.0) H Mean Corpuscular Hemoglobin Concent 33.0 G/DL (32.0-36.0) Red Cell Distribution Width 13.2 % (11.6-14.8) Platelet Count 263 K/UL (150-450) Mean Platelet Volume 6.8 FL (6.5-10.1) Neutrophils (%) (Auto) 60.7 % (45.0-75.0) Lymphocytes (%) (Auto) 29.2 % (20.0-45.0) Monocytes (%) (Auto) 5.3 % (1.0-10.0) Eosinophils (%) (Auto) 4.1 % (0.0-3.0) H Basophils (%) (Auto) 0.7 % (0.0-2.0) Sodium Level 144 MMOL/L (136-145) Potassium Level 4.0 MMOL/L (3.5-5.1) Chloride Level 106 MMOL/L (98-107) Carbon Dioxide Level 38 MMOL/L (21-32) H Anion Gap 0 mmol/L (5-15) L Blood Urea Nitrogen 15 mg/dL (7-18) Creatinine 0.6 MG/DL (0.55-1.30) Estimat Glomerular Filtration Rate mL/min (>60) Glucose Level 154 MG/DL (74-106) H Calcium Level 8.4 MG/DL (8.5-10.1) L Total Bilirubin 0.1 MG/DL (0.2-1.0) L Aspartate Amino Transf (AST/SGOT) 23 U/L (15-37) Alanine Aminotransferase (ALT/SGPT) 13 U/L (12-78) Alkaline Phosphatase 93 U/L (46-116) Total Protein 6.4 G/DL (6.4-8.2) Albumin 1.6 G/DL (3.4-5.0) L Globulin 4.8 g/dL Albumin/Globulin Ratio 0.3 (1.0-2.7) L Vancomycin Level Trough 11.9 ug/mL (5.0-12.0) Arterial Blood pH 7.523 (7.350-7.450) Arterial Blood Partial Pressure CO2 40.0 mmHg (35.0-45.0) Arterial Blood Partial Pressure O2 114.4 mmHg (75.0-100.0) H Arterial Blood HCO3 32.2 mmol/L (22.0-26.0) H Arterial Blood Oxygen Saturation 98.1 % (95-100) Arterial Blood Base Excess 8.6 (-2-2) H Jose Luis Test Positive General: well developed, well nourished Head: normocophalic, atraumatic Neck: no rigidity EENT: benign Neurologic Exam Mental Status: awake Cranial Nerve II: no papilledema Cranial Nerves III, IV, : PERRLA, EOMI Cranial Nerve VIII: normal hearing Cranial Nerve XII: tongue midline Motor System: other - Right sided hemiplegia with TF in leg and min withdrawal at shoulder / Left sided w/d and apparent full strength to noxious stimuli Sensory: other - Some indication of paresthesia requiring increased noxious stimuli on right side Gait: normal regular Objective Remains intubated on ventilator, with gag reflex, frequently chewing ETT and moving tongue around. She is now making meaningful eye contact and tracking with her eyes. As per her granddaughter, she is now approximately back to her baseline - which was tracking people with her eyes, moving/ turning her head, she could be sounds but no formal speech. 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 Right facial weakness of whole face, including eye. Possible sensory loss on right side due to need for increased noxious stimulus to induce response. Right side plegic, with slight movement proximally > distally. Left side w/d and UE now in restraints because exhibiting full strength Impression/Recommendations Problems: (1) Acute encephalopathy Assessment & Plan: Still not following commands. As per granddaughter - she does not do this at baseline She is closer to her baseline but lethargic. (2) Septic shock (3) Respiratory failure (4) Dementia (5) Altered level of consciousness (6) CVA, old, hemiparesis Assessment & Plan: CT Brain 03/09/19: Old left parietal and occipital infarct Moderate atrophy of the brain. 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 (7) Diabetes Status: stable, progressing Diagnostic Impression MRI ordered to rule out acute stroke as cause of increased AMS and respiratory failure but unable to obtain at this time due to ventilatory status Wean Vent as able - failed trials x 2, now off sedation with increased lethargy on exam. Maintain Normoglycemia with ISS May start ASA HgB> 8 - dropping on CBC, track and trend Maintain normoglycemia with ISS Continue enteral feeding SBP< 140 Discussion with family regarding goals of care Recommendations Q 2 hour neuro obs Abx as needed Will likely need Tracheostomy as unable to be weaned off vent at this time. Replete/ Correct Lytes as necessary Discuss Tracheostomy transition with family Discuss goals of care with family - DNR vs hospice vs terminal extubation Seroquel 25mg QD PRN for agitation- can be increased if necessary Continue Phenytoin but no indication for increased dosage or addition of second line AED please avoid benzos, opioids, anticholinergic drugs if the goal of treatment is to wean- This was a critical care note. Critical care time of 45 minutes, was performed in order to assess and manage the high probability of imminent or life threatening deterioration to respiratory/neurologic function, with frequent reassessment and excludes all billable procedures. Ngozi Franklin N.P. March 20, 2019 23:51
[2019-03-21] VITALS (24 sets, daily range): BP systolic 102–150; BP diastolic 43–62
[2019-03-21] MEDS: Meropenem 1 GM in NS 55 ML IVPB SCH ×2 (00:16→14:02)
[2019-03-21] MEDS: Vancomycin 750mg/NS 275ml IVPB SCH ×4 (00:16→12:19)
[2019-03-21] MEDS: NovoLOG Insulin Flexpen SUBQ SCH ×4 (00:18→18:19)
[2019-03-21] MEDS: Bumetanide 2.5mg/10ml Inj IVP SCH (05:10)
[2019-03-21] MEDS: acetaZOLAMIDE 500mg Inj IVP SCH (05:10)
[2019-03-21 06:02] LABS: BASOPHILS % (AUTO) 0.6 % (0.0-2.0); EOSINOPHILS % (AUTO) 5.1 % (0.0-3.0); HEMATOCRIT 24.7 % (37.0-47.0); HEMOGLOBIN 8.3 G/DL (12.0-16.0); MEAN CORPUSCULAR VOLUME 99 FL (80-99); MONOCYTES % (AUTO) 4.8 % (1.0-10.0); NEUTROPHILS % (AUTO) 63.5 % (45.0-75.0); PLATELET COUNT 236 K/UL (150-450); RED BLOOD COUNT 2.49 M/UL (4.20-5.40); RED CELL DISTRIBUTION WIDTH 13.5 % (11.6-14.8); WHITE BLOOD COUNT 6.1 K/UL (4.8-10.8)
[2019-03-21 06:29] LABS: ANION GAP 2 mmol/L (5-15); BLOOD UREA NITROGEN 15 mg/dL (7-18); CALCIUM 8.4 MG/DL (8.5-10.1); CARBON DIOXIDE 33 MMOL/L (21-32); CHLORIDE 109 MMOL/L (98-107); CREATININE 0.6 MG/DL (0.55-1.30); POTASSIUM 3.4 MMOL/L (3.5-5.1); SODIUM 144 MMOL/L (136-145)
[2019-03-21] MEDS ORDERED: NS 275ml ONE (08:19)
[2019-03-21] MEDS: Phenytoin Susp 100mg/4ml GT SCH ×2 (09:10→21:27)
[2019-03-21] MEDS: Pantoprazole Inj IVP SCH (09:10)
[2019-03-21] MEDS: Lisinopril 2.5mg tab GT SCH (09:11)
--- NOTE | 2019-03-21 09:55 | Nephrology Progress Note ---
Assessment/Plan Problem List: (1) Systolic heart failure (2) Dyspnea (3) Respiratory failure (4) Respiratory distress (5) Septic shock (6) Diabetes (7) CVA, old, hemiparesis (8) Hypokalemia (9) COLLIN (acute kidney injury) Plan kcl, continue diuresis Subjective ROS Limited/Unobtainable: Yes Objective Objective Last 24 Hour Vital Signs Date Time Temp Pulse Resp B/P (MAP) Pulse Ox O2 Delivery O2 Flow Rate FiO2 03/21/19 09:18 72 35 30 03/21/19 09:18 100 03/21/19 09:11 147/60 03/21/19 09:00 69 16 147/60 (89) 100 03/21/19 08:00 Mechanical Ventilator Mechanical Ventilator 03/21/19 08:00 98.9 67 17 131/50 (77) 100 03/21/19 08:00 30 03/21/19 08:00 67 03/21/19 07:19 71 18 30 03/21/19 07:00 73 16 144/53 (83) 100 03/21/19 06:00 70 24 145/50 (81) 100 03/21/19 05:03 72 16 30 03/21/19 05:00 72 23 149/54 (85) 100 03/21/19 04:00 Mechanical Ventilator Mechanical Ventilator 03/21/19 04:00 30 03/21/19 04:00 68 03/21/19 04:00 67 14 125/49 (74) 99 03/21/19 03:00 70 9 121/47 (71) 99 03/21/19 02:58 70 14 30 03/21/19 02:00 73 20 140/49 (79) 100 03/21/19 01:00 70 19 132/48 (76) 100 03/21/19 01:00 69 17 30 03/21/19 00:00 68 03/21/19 00:00 98.4 66 24 102/43 (62) 100 03/21/19 00:00 30 03/21/19 00:00 Mechanical Ventilator Mechanical Ventilator 03/20/19 23:00 74 24 30 03/20/19 23:00 73 25 135/48 (77) 100 03/20/19 22:00 73 12 148/59 (88) 100 03/20/19 21:04 72 20 30 03/20/19 21:00 71 16 138/59 (85) 100 03/20/19 20:00 69 03/20/19 20:00 30 03/20/19 20:00 98.8 73 27 119/49 (72) 99 03/20/19 20:00 Mechanical Ventilator Mechanical Ventilator 03/20/19 19:01 73 22 30 03/20/19 19:00 74 21 132/50 (77) 99 03/20/19 18:00 74 21 132/51 (78) 100 03/20/19 17:00 74 28 141/56 (84) 99 03/20/19 16:57 30 03/20/19 16:56 74 18 30 03/20/19 16:56 30 03/20/19 16:00 Mechanical Ventilator Mechanical Ventilator 03/20/19 16:00 71 30 134/54 (80) 99 03/20/19 16:00 30 03/20/19 15:34 73 03/20/19 15:22 75 28 30 03/20/19 15:21 148/62 03/20/19 15:00 74 30 148/62 (90) 100 03/20/19 14:00 75 31 161/59 (93) 100 03/20/19 13:15 73 29 30 03/20/19 13:00 74 31 162/63 (96) 100 03/20/19 12:16 73 03/20/19 12:00 Mechanical Ventilator Mechanical Ventilator 03/20/19 12:00 98.3 73 33 146/57 (86) 100 03/20/19 12:00 30 03/20/19 11:04 76 33 30 03/20/19 11:00 78 33 166/66 (99) 100 03/20/19 10:00 76 31 159/64 (95) 100 Intake and Output 03/20/19 03/21/19 18:59 06:59 Intake Total 810.000 ml 870.000 ml Output Total 1880 ml 1980 ml Balance -1070.000 ml -1110.000 ml IV Total 330.000 ml 330.000 ml Tube Feeding 480 ml 480 ml Other 60 ml Output Urine Total 1880 ml 1980 ml Laboratory Tests 03/20/19 10:30: Vancomycin Level Trough 11.9 03/20/19 11:25: Arterial Blood pH 7.523H, Arterial Blood Partial Pressure CO2 40.0, Arterial Blood Partial Pressure O2 114.4H, Arterial Blood HCO3 32.2H, Arterial Blood Oxygen Saturation 98.1, Arterial Blood Base Excess 8.6H, Jose Luis Test Positive 03/21/19 04:00: White Blood Count 6.1, Red Blood Count 2.49L, Hemoglobin 8.3L, Hematocrit 24.7L , Mean Corpuscular Volume 99, Mean Corpuscular Hemoglobin 33.2H, Mean Corpuscular Hemoglobin Concent 33.6, Red Cell Distribution Width 13.5, Platelet Count 236, Mean Platelet Volume 5.4L, Neutrophils (%) (Auto) 63.5, Lymphocytes ( %) (Auto) 26.0, Monocytes (%) (Auto) 4.8, Eosinophils (%) (Auto) 5.1H, Basophils (%) (Auto) 0.6, Sodium Level 144, Potassium Level 3.4L, Chloride Level 109H, Carbon Dioxide Level 33H, Anion Gap 2L, Blood Urea Nitrogen 15, Creatinine 0.6, Estimat Glomerular Filtration Rate , Glucose Level 113H, Calcium Level 8.4L Height (Feet): 5 Height (Inches): 8.00 Weight (Pounds): 170 General Appearance: lethargic, other - on vent EENT: normal ENT inspection Neck: normal alignment Cardiovascular: regular rhythm Respiratory/Chest: rhonchi - bilaterally Abdomen: non tender, soft Extremities: moderate edema Neurologic: motor weakness, disoriented Lamberto Álvarez MD March 21, 2019 09:55
[2019-03-21] MEDS ORDERED: Bumetanide 0.25mg/ml 4ml IV SCH (10:15)
--- NOTE | 2019-03-21 10:29 | Pulmonolgy Critical Care Note ---
Critical Care - Asmt/Plan Assessment/Plan: 1. Acute respiratory failure. 2. Severe dehydration with shock. 3. Severe hypernatremia. 4. Multi-infarct dementia. 5. Possible acute myocardial infarction. 6. History of heart failure. 7. History of atrial fibrillation. 8. Gastric tube with dysphagia. 9. History of chronic obstructive pulmonary disease. 10. History of seizures with therapeutic Dilantin level. 11. History of hypertension. 12. Hyperlipidemia. 13. Diabetes. 14. Sepsis - [employer] bacteremia weaning today - as tolerated ID following may need trach if not weanable pts mental status is poor and question if she can protect her airway if extbuated disc w RN cont present rx Respiratory: CXR, ABG, weaning trial Cardiac: continue to monitor HR/BP Renal: keep IV fluid Disposition: keep in ICU Time Spent (Minutes): 40 Notes Reviewed: blender snuff Discussed with: nurses Critical Care - Objective Last 24 Hour Vital Signs Date Time Temp Pulse Resp B/P (MAP) Pulse Ox O2 Delivery O2 Flow Rate FiO2 03/21/19 10:00 72 27 129/53 (78) 100 03/21/19 09:18 72 35 30 03/21/19 09:18 100 03/21/19 09:11 147/60 03/21/19 09:00 69 16 147/60 (89) 100 03/21/19 08:00 Mechanical Ventilator Mechanical Ventilator 03/21/19 08:00 98.9 67 17 131/50 (77) 100 03/21/19 08:00 30 03/21/19 08:00 67 03/21/19 07:19 71 18 30 03/21/19 07:00 73 16 144/53 (83) 100 03/21/19 06:00 70 24 145/50 (81) 100 03/21/19 05:03 72 16 30 03/21/19 05:00 72 23 149/54 (85) 100 03/21/19 04:00 Mechanical Ventilator Mechanical Ventilator 03/21/19 04:00 30 03/21/19 04:00 68 03/21/19 04:00 67 14 125/49 (74) 99 03/21/19 03:00 70 9 121/47 (71) 99 03/21/19 02:58 70 14 30 03/21/19 02:00 73 20 140/49 (79) 100 03/21/19 01:00 70 19 132/48 (76) 100 03/21/19 01:00 69 17 30 03/21/19 00:00 68 03/21/19 00:00 98.4 66 24 102/43 (62) 100 03/21/19 00:00 30 03/21/19 00:00 Mechanical Ventilator Mechanical Ventilator 03/20/19 23:00 74 24 30 03/20/19 23:00 73 25 135/48 (77) 100 03/20/19 22:00 73 12 148/59 (88) 100 03/20/19 21:04 72 20 30 03/20/19 21:00 71 16 138/59 (85) 100 03/20/19 20:00 69 03/20/19 20:00 30 03/20/19 20:00 98.8 73 27 119/49 (72) 99 03/20/19 20:00 Mechanical Ventilator Mechanical Ventilator 03/20/19 19:01 73 22 30 03/20/19 19:00 74 21 132/50 (77) 99 03/20/19 18:00 74 21 132/51 (78) 100 03/20/19 17:00 74 28 141/56 (84) 99 03/20/19 16:57 30 03/20/19 16:56 74 18 30 03/20/19 16:56 30 03/20/19 16:00 Mechanical Ventilator Mechanical Ventilator 03/20/19 16:00 71 30 134/54 (80) 99 03/20/19 16:00 30 03/20/19 15:34 73 03/20/19 15:22 75 28 30 03/20/19 15:21 148/62 03/20/19 15:00 74 30 148/62 (90) 100 03/20/19 14:00 75 31 161/59 (93) 100 03/20/19 13:15 73 29 30 03/20/19 13:00 74 31 162/63 (96) 100 03/20/19 12:16 73 03/20/19 12:00 Mechanical Ventilator Mechanical Ventilator 03/20/19 12:00 98.3 73 33 146/57 (86) 100 03/20/19 12:00 30 03/20/19 11:04 76 33 30 03/20/19 11:00 78 33 166/66 (99) 100 Status: obtunded Condition: critical Lungs: rales, rhonchi Heart: HR/BP stable Abdomen: soft, non-tender Extremities: edema Accucheck: 143 Critical Care - Subjective ROS Limited/Unobtainable: Yes Condition: critical FI02: 30 Vent Support Breath Rate: 14 Vent Support Mode: AC Vent Tidal Volume: 400 Sputum Amount: Moderate PEEP: 5.0 PIP: 16 Tube Feeding Amount: 60 I&O: Intake and Output 03/20/19 03/21/19 19:00 07:00 Intake Total 810.000 ml 870.000 ml Output Total 2030 ml 2080 ml Balance -1220.000 ml -1210.000 ml IV Total 330.000 ml 330.000 ml Tube Feeding 480 ml 480 ml Other 60 ml Output Urine Total 2030 ml 2080 ml Subjective: unresponsive on the vent does not follow commands weaning this am on ps 10 tv 350 no cp nv or bleeding tolerating tf no pressors no new cxr CXR: 03/20 chf ET-Tube: 7.5 ET Position: 22 Labs: Current Medications Medications (Trade) Dose Ordered Sig/Singh Route PRN Reason Start Time Stop Time Status Last Admin Dose Admin Acetaminophen (Tylenol) 650 mg Q4H PRN GT Mild Pain/Temp > 100.5 03/09/19 20:30 04/08/19 20:29 03/17/19 16:35 Bumetanide (Bumex) 1 mg ONCE IV 03/21/19 10:15 03/21/19 11:15 03/21/19 10:25 Chlorhexidine Gluconate (Azra-Hex 2%) 1 applic DAILY@2000 TOPIC 03/10/19 20:00 04/09/19 19:59 03/20/19 20:32 Dextrose (Dextrose 50%) 25 ml Q30M PRN IV Hypoglycemia 03/09/19 21:00 04/08/19 20:59 Dextrose (Dextrose 50%) 50 ml Q30M PRN IV Hypoglycemia 03/09/19 21:00 04/08/19 20:59 Insulin Aspart (NovoLOG) EVERY 6 HOURS SUBQ 03/10/19 00:00 04/09/19 00:00 03/21/19 05:13 Lisinopril (Zestril) 2.5 mg DAILY GT 03/20/19 15:00 04/19/19 14:59 03/21/19 09:11 Meropenem 1 gm/ Sodium Chloride 55 ml @ 110 mls/hr Q12HR@0000,1200 IVPB 03/21/19 00:00 03/25/19 23:59 03/21/19 00:16 Pantoprazole (Protonix) 40 mg DAILY IVP 03/10/19 09:00 04/09/19 08:59 03/21/19 09:10 Phenytoin (Dilantin) 125 mg Q12HR GT 03/09/19 21:00 04/08/19 20:59 03/21/19 09:10 Potassium Chloride (K-Dur) 40 meq TID GT 03/21/19 10:00 04/20/19 09:59 03/21/19 10:25 Vancomycin HCl (Vanco rx to dose) 1 ea DAILY PRN MISC Per rx protocol 03/18/19 14:41 04/17/19 14:40 Vancomycin HCl 750 mg/Sodium Chloride 275 ml @ 183.333 mls/hr Q12H IVPB 03/20/19 12:00 03/25/19 11:59 03/21/19 00:16 Laboratory Tests Test 03/20/19 10:30 03/20/19 11:25 03/21/19 04:00 Vancomycin Level Trough 11.9 ug/mL (5.0-12.0) Arterial Blood pH 7.523 (7.350-7.450) Arterial Blood Partial Pressure CO2 40.0 mmHg (35.0-45.0) Arterial Blood Partial Pressure O2 114.4 mmHg (75.0-100.0) H Arterial Blood HCO3 32.2 mmol/L (22.0-26.0) H Arterial Blood Oxygen Saturation 98.1 % (95-100) Arterial Blood Base Excess 8.6 (-2-2) H Jose Luis Test Positive White Blood Count 6.1 K/UL (4.8-10.8) Red Blood Count 2.49 M/UL (4.20-5.40) L Hemoglobin 8.3 G/DL (12.0-16.0) L Hematocrit 24.7 % (37.0-47.0) L Mean Corpuscular Volume 99 FL (80-99) Mean Corpuscular Hemoglobin 33.2 PG (27.0-31.0) H Mean Corpuscular Hemoglobin Concent 33.6 G/DL (32.0-36.0) Red Cell Distribution Width 13.5 % (11.6-14.8) Platelet Count 236 K/UL (150-450) Mean Platelet Volume 5.4 FL (6.5-10.1) L Neutrophils (%) (Auto) 63.5 % (45.0-75.0) Lymphocytes (%) (Auto) 26.0 % (20.0-45.0) Monocytes (%) (Auto) 4.8 % (1.0-10.0) Eosinophils (%) (Auto) 5.1 % (0.0-3.0) H Basophils (%) (Auto) 0.6 % (0.0-2.0) Sodium Level 144 MMOL/L (136-145) Potassium Level 3.4 MMOL/L (3.5-5.1) L Chloride Level 109 MMOL/L (98-107) H Carbon Dioxide Level 33 MMOL/L (21-32) H Anion Gap 2 mmol/L (5-15) L Blood Urea Nitrogen 15 mg/dL (7-18) Creatinine 0.6 MG/DL (0.55-1.30) Estimat Glomerular Filtration Rate mL/min (>60) Glucose Level 113 MG/DL (74-106) H Calcium Level 8.4 MG/DL (8.5-10.1) L Nia Rosa DO March 21, 2019 10:29
--- NOTE | 2019-03-21 14:51 | Cardiology Progress Note ---
Assessment/Plan Problem List: (1) Systolic heart failure (2) Dyspnea (3) Respiratory distress (4) CVA, old, hemiparesis (5) Dementia Status: stable, progressing Status Narrative Pt w/ LV systolic dysfunction, EF 25-30% by ECHO. i/o + 6 L since adm On vent, undergoing weaning trial today Assessment/Plan Continue weaning trials per pulmonary. Agree w/ diuretics - diamox, lasix for pulmonary vascular congestion uptitrate claudia inhibitors Supplement K followup labs in am Subjective ROS Limited/Unobtainable: Yes Subjective Cardiology for Dr. Bliss Pt intubated, sedated Objective Last 24 Hour Vital Signs Date Time Temp Pulse Resp B/P (MAP) Pulse Ox O2 Delivery O2 Flow Rate FiO2 03/21/19 14:00 74 26 137/56 (83) 99 03/21/19 13:00 73 16 127/47 (73) 99 03/21/19 12:55 72 27 30 03/21/19 12:00 Mechanical Ventilator Mechanical Ventilator 03/21/19 12:00 66 03/21/19 12:00 98.5 69 27 150/55 (86) 100 03/21/19 12:00 30 03/21/19 11:24 68 26 30 03/21/19 11:00 68 25 117/62 (80) 100 03/21/19 10:00 72 27 129/53 (78) 100 03/21/19 09:18 72 35 30 03/21/19 09:18 100 03/21/19 09:11 147/60 03/21/19 09:00 69 16 147/60 (89) 100 03/21/19 08:00 Mechanical Ventilator Mechanical Ventilator 03/21/19 08:00 98.9 67 17 131/50 (77) 100 03/21/19 08:00 30 03/21/19 08:00 67 03/21/19 07:19 71 18 30 03/21/19 07:00 73 16 144/53 (83) 100 03/21/19 06:00 70 24 145/50 (81) 100 03/21/19 05:03 72 16 30 03/21/19 05:00 72 23 149/54 (85) 100 03/21/19 04:00 Mechanical Ventilator Mechanical Ventilator 03/21/19 04:00 30 03/21/19 04:00 68 03/21/19 04:00 67 14 125/49 (74) 99 03/21/19 03:00 70 9 121/47 (71) 99 03/21/19 02:58 70 14 30 03/21/19 02:00 73 20 140/49 (79) 100 03/21/19 01:00 70 19 132/48 (76) 100 03/21/19 01:00 69 17 30 03/21/19 00:00 68 03/21/19 00:00 98.4 66 24 102/43 (62) 100 03/21/19 00:00 30 03/21/19 00:00 Mechanical Ventilator Mechanical Ventilator 03/20/19 23:00 74 24 30 03/20/19 23:00 73 25 135/48 (77) 100 03/20/19 22:00 73 12 148/59 (88) 100 03/20/19 21:04 72 20 30 03/20/19 21:00 71 16 138/59 (85) 100 03/20/19 20:00 69 03/20/19 20:00 30 03/20/19 20:00 98.8 73 27 119/49 (72) 99 03/20/19 20:00 Mechanical Ventilator Mechanical Ventilator 03/20/19 19:01 73 22 30 03/20/19 19:00 74 21 132/50 (77) 99 03/20/19 18:00 74 21 132/51 (78) 100 03/20/19 17:00 74 28 141/56 (84) 99 03/20/19 16:57 30 03/20/19 16:56 74 18 30 03/20/19 16:56 30 03/20/19 16:00 Mechanical Ventilator Mechanical Ventilator 03/20/19 16:00 71 30 134/54 (80) 99 03/20/19 16:00 30 03/20/19 15:34 73 03/20/19 15:22 75 28 30 03/20/19 15:21 148/62 03/20/19 15:00 74 30 148/62 (90) 100 General Appearance: WD/WN, lethargic, on vent EENT: PERRL/EOMI, other - et tube Neck: supple, other - R IJ catheter Rhythm: NSR Cardiovascular: normal rate, regular rhythm, no gallop/murmur Respiratory/Chest: other - fairly clear anteriorly Abdomen: non tender, soft, other - obese Extremities: no swelling Intake and Output 03/20/19 03/21/19 18:59 06:59 Intake Total 810.000 ml 870.000 ml Output Total 1880 ml 1980 ml Balance -1070.000 ml -1110.000 ml IV Total 330.000 ml 330.000 ml Tube Feeding 480 ml 480 ml Other 60 ml Output Urine Total 1880 ml 1980 ml Laboratory Tests Test 03/21/19 04:00 White Blood Count 6.1 K/UL (4.8-10.8) Red Blood Count 2.49 M/UL (4.20-5.40) L Hemoglobin 8.3 G/DL (12.0-16.0) L Hematocrit 24.7 % (37.0-47.0) L Mean Corpuscular Volume 99 FL (80-99) Mean Corpuscular Hemoglobin 33.2 PG (27.0-31.0) H Mean Corpuscular Hemoglobin Concent 33.6 G/DL (32.0-36.0) Red Cell Distribution Width 13.5 % (11.6-14.8) Platelet Count 236 K/UL (150-450) Mean Platelet Volume 5.4 FL (6.5-10.1) L Neutrophils (%) (Auto) 63.5 % (45.0-75.0) Lymphocytes (%) (Auto) 26.0 % (20.0-45.0) Monocytes (%) (Auto) 4.8 % (1.0-10.0) Eosinophils (%) (Auto) 5.1 % (0.0-3.0) H Basophils (%) (Auto) 0.6 % (0.0-2.0) Sodium Level 144 MMOL/L (136-145) Potassium Level 3.4 MMOL/L (3.5-5.1) L Chloride Level 109 MMOL/L (98-107) H Carbon Dioxide Level 33 MMOL/L (21-32) H Anion Gap 2 mmol/L (5-15) L Blood Urea Nitrogen 15 mg/dL (7-18) Creatinine 0.6 MG/DL (0.55-1.30) Estimat Glomerular Filtration Rate mL/min (>60) Glucose Level 113 MG/DL (74-106) H Calcium Level 8.4 MG/DL (8.5-10.1) Donya Alvarado MD March 21, 2019 14:51
--- NOTE | 2019-03-21 21:15 | Neurology Progress Note ---
Interim History Interim History ROS Limited/Unobtainable: Yes Complaints: AMS Events: This visit was performed on March 21, 2019 Interim History No interim events or change in exam. Dr. Melecio Tavarez was supervising physician for this visit. Objective Physical Exam Last Vital Signs Date Time Temp Pulse Resp B/P (MAP) Pulse Ox O2 Delivery O2 Flow Rate FiO2 03/21/19 20:55 71 15 30 03/21/19 19:00 104/50 (68) 99 03/21/19 16:00 98.8 03/21/19 16:00 Mechanical Ventilator Mechanical Ventilator Laboratory Tests Test 03/21/19 04:00 White Blood Count 6.1 K/UL (4.8-10.8) Red Blood Count 2.49 M/UL (4.20-5.40) L Hemoglobin 8.3 G/DL (12.0-16.0) L Hematocrit 24.7 % (37.0-47.0) L Mean Corpuscular Volume 99 FL (80-99) Mean Corpuscular Hemoglobin 33.2 PG (27.0-31.0) H Mean Corpuscular Hemoglobin Concent 33.6 G/DL (32.0-36.0) Red Cell Distribution Width 13.5 % (11.6-14.8) Platelet Count 236 K/UL (150-450) Mean Platelet Volume 5.4 FL (6.5-10.1) L Neutrophils (%) (Auto) 63.5 % (45.0-75.0) Lymphocytes (%) (Auto) 26.0 % (20.0-45.0) Monocytes (%) (Auto) 4.8 % (1.0-10.0) Eosinophils (%) (Auto) 5.1 % (0.0-3.0) H Basophils (%) (Auto) 0.6 % (0.0-2.0) Sodium Level 144 MMOL/L (136-145) Potassium Level 3.4 MMOL/L (3.5-5.1) L Chloride Level 109 MMOL/L (98-107) H Carbon Dioxide Level 33 MMOL/L (21-32) H Anion Gap 2 mmol/L (5-15) L Blood Urea Nitrogen 15 mg/dL (7-18) Creatinine 0.6 MG/DL (0.55-1.30) Estimat Glomerular Filtration Rate mL/min (>60) Glucose Level 113 MG/DL (74-106) H Calcium Level 8.4 MG/DL (8.5-10.1) L General: well developed, well nourished Head: normocophalic, atraumatic Neck: no rigidity EENT: benign Neurologic Exam Mental Status: awake Cranial Nerve II: no papilledema Cranial Nerves III, IV, : PERRLA, EOMI Cranial Nerve VIII: normal hearing Cranial Nerve XII: tongue midline Motor System: other - Right sided hemiplegia with TF in leg and min withdrawal at shoulder / Left sided w/d and apparent full strength to noxious stimuli Sensory: other - Some indication of paresthesia requiring increased noxious stimuli on right side Gait: normal regular Objective Remains intubated on ventilator, with gag reflex, frequently chewing ETT and moving tongue around. She is now making meaningful eye contact and tracking with her eyes. As per her granddaughter, she is now approximately back to her baseline - which was tracking people with her eyes, moving/ turning her head, she could be sounds but no formal speech. 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 Right facial weakness of whole face, including eye. Possible sensory loss on right side due to need for increased noxious stimulus to induce response. Right side plegic, with slight movement proximally > distally. Left side w/d and UE now in restraints because exhibiting full strength Impression/Recommendations Problems: (1) Acute encephalopathy Assessment & Plan: Still not following commands. As per granddaughter - she does not do this at baseline She is closer to her baseline but lethargic. (2) Septic shock (3) Respiratory failure (4) Dementia (5) Altered level of consciousness (6) CVA, old, hemiparesis Assessment & Plan: CT Brain 03/09/19: Old left parietal and occipital infarct Moderate atrophy of the brain. 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 (7) Diabetes Status: stable, progressing Diagnostic Impression MRI ordered to rule out acute stroke as cause of increased AMS and respiratory failure but unable to obtain at this time due to ventilatory status Wean Vent as able - failed trials x 2, now off sedation with increased lethargy on exam. Maintain Normoglycemia with ISS May start ASA HgB> 8 - dropping on CBC, track and trend Maintain normoglycemia with ISS Continue enteral feeding SBP< 140 Discussion with family regarding goals of care Recommendations Q 2 hour neuro obs Abx as needed Will likely need Tracheostomy as unable to be weaned off vent at this time. Replete/ Correct Lytes as necessary Discuss Tracheostomy transition with family Discuss goals of care with family - DNR vs hospice vs terminal extubation Seroquel 25mg QD PRN for agitation- can be increased if necessary Continue Phenytoin but no indication for increased dosage or addition of second line AED please avoid benzos, opioids, anticholinergic drugs if the goal of treatment is to wean- This was a critical care note. Critical care time of 45 minutes, was performed in order to assess and manage the high probability of imminent or life threatening deterioration to respiratory/neurologic function, with frequent reassessment and excludes all billable procedures. Ngozi Franklin N.P. March 21, 2019 21:15
[2019-03-21] MEDS: Dyna-Hex 2% Top Sol 2oz TOPIC SCH (21:27)
[2019-03-22] VITALS (24 sets, daily range): BP systolic 122–169; BP diastolic 49–68
[2019-03-22] MEDS: Meropenem 1 GM in NS 55 ML IVPB SCH ×2 (00:44→12:38)
[2019-03-22] MEDS: Vancomycin 750mg/NS 275ml IVPB SCH ×4 (00:44→12:38)
[2019-03-22] MEDS: NovoLOG Insulin Flexpen SUBQ SCH ×4 (00:48→17:49)
[2019-03-22 06:31] LABS: ANION GAP 2 mmol/L (5-15); BLOOD UREA NITROGEN 18 mg/dL (7-18); CALCIUM 8.4 MG/DL (8.5-10.1); CARBON DIOXIDE 32 MMOL/L (21-32); CHLORIDE 111 MMOL/L (98-107); CREATININE 0.6 MG/DL (0.55-1.30); PHOSPHORUS 2.6 MG/DL (2.5-4.9); POTASSIUM 4.1 MMOL/L (3.5-5.1); SODIUM 145 MMOL/L (136-145)
[2019-03-22] MEDS: Phenytoin Susp 100mg/4ml GT SCH ×2 (08:55→20:12)
[2019-03-22] MEDS: Pantoprazole Inj IVP SCH (08:56)
[2019-03-22] MEDS ORDERED: Lisinopril 2.5mg tab GT SCH (09:00)
--- NOTE | 2019-03-22 09:17 | Pulmonology Progress Note ---
Assessment/Plan Assessment/Plan 1. Acute respiratory failure. 2. Severe dehydration with shock. 3. Severe hypernatremia. 4. Multi-infarct dementia. 5. Possible acute myocardial infarction. 6. History of heart failure. 7. History of atrial fibrillation. 8. Gastric tube with dysphagia. 9. History of chronic obstructive pulmonary disease. 10. History of seizures with therapeutic Dilantin level. 11. History of hypertension. 12. Hyperlipidemia. 13. Diabetes. 14. Sepsis - [employer] bacteremia weaning today - CPAP/PS 5 doing better, more alert may need trach if not weanable disc w RN at bedside cont present rx may try to extubate soon but high risk of reintubation if cannot tolerate secretions Subjective ROS Limited/Unobtainable: Yes Constitutional: Denies: fever Respiratory: Denies: productive cough Allergies: Coded Allergies: PENICILLINS (Verified Allergy, Unknown, 02/04/18) SULFA (SULFONAMIDE ANTIBIOTICS) (Verified Allergy, Unknown, 02/04/18) SULFACETAMIDE (Unverified Allergy, Unknown, 06/24/18) Objective Last 24 Hour Vital Signs Date Time Temp Pulse Resp B/P (MAP) Pulse Ox O2 Delivery O2 Flow Rate FiO2 03/22/19 08:56 157/69 03/22/19 08:51 83 23 30 03/22/19 08:45 83 25 30 03/22/19 08:00 99.2 71 14 134/58 (83) 100 03/22/19 08:00 30 03/22/19 07:00 98.0 73 14 146/56 (86) 100 03/22/19 06:48 72 14 30 03/22/19 06:00 75 14 134/55 (81) 100 03/22/19 05:11 79 15 30 03/22/19 05:00 79 20 153/59 (90) 99 03/22/19 04:00 Mechanical Ventilator Mechanical Ventilator 03/22/19 04:00 77 03/22/19 04:00 72 15 145/64 (91) 99 03/22/19 04:00 30 03/22/19 03:16 75 18 30 03/22/19 03:00 75 17 133/51 (78) 99 03/22/19 02:00 74 16 133/55 (81) 98 03/22/19 01:00 73 14 122/52 (75) 98 03/22/19 00:57 73 14 30 5/27/19 00:00 98.4 74 14 122/55 (77) 99 03/22/19 00:00 30 03/22/19 00:00 71 03/22/19 00:00 Mechanical Ventilator Mechanical Ventilator 03/21/19 23:00 74 15 129/58 (81) 99 03/21/19 22:45 74 15 30 03/21/19 22:00 74 15 130/53 (78) 99 03/21/19 21:00 70 15 107/45 (65) 100 03/21/19 20:55 71 15 30 03/21/19 20:00 30 03/21/19 20:00 74 18 122/56 (78) 99 03/21/19 20:00 74 03/21/19 20:00 Mechanical Ventilator Mechanical Ventilator 03/21/19 19:05 74 14 30 03/21/19 19:00 73 16 104/50 (68) 99 03/21/19 18:00 70 15 112/54 (73) 100 03/21/19 17:00 76 15 125/49 (74) 99 03/21/19 16:55 72 26 30 03/21/19 16:00 98.8 77 26 123/49 (73) 100 03/21/19 16:00 30 03/21/19 16:00 Mechanical Ventilator Mechanical Ventilator 03/21/19 15:36 74 03/21/19 15:13 72 26 30 03/21/19 15:00 72 24 119/45 (69) 98 03/21/19 14:00 74 26 137/56 (83) 99 03/21/19 13:00 73 16 127/47 (73) 99 03/21/19 12:55 72 27 30 03/21/19 12:00 Mechanical Ventilator Mechanical Ventilator 03/21/19 12:00 30 03/21/19 12:00 66 03/21/19 12:00 98.5 69 27 150/55 (86) 100 03/21/19 11:24 68 26 30 03/21/19 11:00 68 25 117/62 (80) 100 03/21/19 10:00 72 27 129/53 (78) 100 03/21/19 09:18 72 35 30 03/21/19 09:18 100 Intake and Output 03/21/19 03/22/19 19:00 07:00 Intake Total 1450.333 ml 1150.000 ml Output Total 1420 ml 550 ml Balance 30.333 ml 600.000 ml Free Water 400 ml 100 ml IV Total 330.333 ml 330.000 ml Tube Feeding 720 ml 720 ml Output Urine Total 1420 ml 550 ml # Bowel Movements 1 Objective GT General Appearance: no acute distress HEENT: atraumatic Respiratory/Chest: lungs clear, decreased breath sounds Cardiovascular: normal rate Laboratory Tests 03/21/19 23:00: Vancomycin Level Trough 19.4H 03/22/19 04:40: Sodium Level 145, Potassium Level 4.1, Chloride Level 111H, Carbon Dioxide Level 32, Anion Gap 2L, Blood Urea Nitrogen 18, Creatinine 0.6, Estimat Glomerular Filtration Rate , Glucose Level 131H, Calcium Level 8.4L, Phosphorus Level 2.6, Magnesium Level 2.0 Current Medications Medications (Trade) Dose Ordered Sig/Singh Route PRN Reason Start Time Stop Time Status Last Admin Dose Admin Acetaminophen (Tylenol) 650 mg Q4H PRN GT Mild Pain/Temp > 100.5 03/09/19 20:30 04/08/19 20:29 03/17/19 16:35 Chlorhexidine Gluconate (Azra-Hex 2%) 1 applic DAILY@2000 TOPIC 03/10/19 20:00 04/09/19 19:59 03/21/19 21:27 Dextrose (Dextrose 50%) 25 ml Q30M PRN IV Hypoglycemia 03/09/19 21:00 04/08/19 20:59 Dextrose (Dextrose 50%) 50 ml Q30M PRN IV Hypoglycemia 03/09/19 21:00 04/08/19 20:59 Insulin Aspart (NovoLOG) EVERY 6 HOURS SUBQ 03/10/19 00:00 04/09/19 00:00 03/22/19 06:08 Lisinopril (Zestril) 5 mg DAILY GT 03/22/19 09:00 04/19/19 14:59 03/22/19 08:56 Meropenem 1 gm/ Sodium Chloride 55 ml @ 110 mls/hr Q12HR@0000,1200 IVPB 03/21/19 00:00 03/25/19 23:59 03/22/19 00:44 Pantoprazole (Protonix) 40 mg DAILY IVP 03/10/19 09:00 04/09/19 08:59 03/22/19 08:56 Phenytoin (Dilantin) 125 mg Q12HR GT 03/09/19 21:00 04/08/19 20:59 03/22/19 08:55 Potassium Chloride (K-Dur) 40 meq TID GT 03/21/19 10:00 04/20/19 09:59 03/22/19 08:55 Vancomycin HCl (Vanco rx to dose) 1 ea DAILY PRN MISC Per rx protocol 03/18/19 14:41 04/17/19 14:40 Vancomycin HCl 750 mg/Sodium Chloride 275 ml @ 183.333 mls/hr Q12H IVPB 03/20/19 12:00 03/25/19 11:59 03/22/19 00:44 Fernando Franks MD March 22, 2019 09:17
--- NOTE | 2019-03-22 10:42 | Diagnostic Imaging Report ---
EXAM: XR Chest, 1 View CLINICAL HISTORY: INFECT TECHNIQUE: Frontal view of the chest. COMPARISON: Chest x-ray 03/20/19 808 FINDINGS: Lungs: Increased right lower lung atelectasis/airspace disease and similar left lung base opacity. Pleural space: Worsening small right pleural effusion. Similar small left pleural effusion. No pneumothorax. Heart: Cardiomegaly. Mediastinum: Unremarkable. Bones/joints: Degenerative changes of the spine. Tubes, lines and devices: Stable right IJ catheter and endotracheal tube. IMPRESSION: 1. Worsening small right pleural effusion. Similar small left pleural effusion. 2. Increased right lower lung atelectasis/airspace disease and similar left lung base opacity.
--- NOTE | 2019-03-22 12:06 | Nephrology Progress Note ---
Assessment/Plan Problem List: (1) Systolic heart failure (2) Dyspnea (3) Respiratory failure (4) Respiratory distress (5) Septic shock (6) Diabetes (7) CVA, old, hemiparesis (8) Hypokalemia (9) COLLIN (acute kidney injury) Plan kcl, continue diuresis bumex reordered, decrease water flushes Subjective ROS Limited/Unobtainable: Yes Objective Objective Last 24 Hour Vital Signs Date Time Temp Pulse Resp B/P (MAP) Pulse Ox O2 Delivery O2 Flow Rate FiO2 03/22/19 11:24 88 31 30 03/22/19 11:00 85 29 152/59 (90) 98 03/22/19 10:00 68 29 161/62 (95) 99 03/22/19 09:00 62 28 162/61 (94) 100 03/22/19 08:56 157/69 03/22/19 08:51 83 23 30 03/22/19 08:45 83 25 30 03/22/19 08:00 73 03/22/19 08:00 99.2 71 14 134/58 (83) 100 03/22/19 08:00 Mechanical Ventilator Mechanical Ventilator 03/22/19 08:00 30 03/22/19 07:00 98.0 73 14 146/56 (86) 100 03/22/19 06:48 72 14 30 03/22/19 06:00 75 14 134/55 (81) 100 03/22/19 05:11 79 15 30 03/22/19 05:00 79 20 153/59 (90) 99 03/22/19 04:00 Mechanical Ventilator Mechanical Ventilator 03/22/19 04:00 77 03/22/19 04:00 72 15 145/64 (91) 99 03/22/19 04:00 30 03/22/19 03:16 75 18 30 03/22/19 03:00 75 17 133/51 (78) 99 03/22/19 02:00 74 16 133/55 (81) 98 03/22/19 01:00 73 14 122/52 (75) 98 03/22/19 00:57 73 14 30 03/22/19 00:00 98.4 74 14 122/55 (77) 99 03/22/19 00:00 30 03/22/19 00:00 71 5/27/19 00:00 Mechanical Ventilator Mechanical Ventilator 03/21/19 23:00 74 15 129/58 (81) 99 03/21/19 22:45 74 15 30 03/21/19 22:00 74 15 130/53 (78) 99 03/21/19 21:00 70 15 107/45 (65) 100 03/21/19 20:55 71 15 30 03/21/19 20:00 30 03/21/19 20:00 74 18 122/56 (78) 99 03/21/19 20:00 74 03/21/19 20:00 Mechanical Ventilator Mechanical Ventilator 03/21/19 19:05 74 14 30 03/21/19 19:00 73 16 104/50 (68) 99 03/21/19 18:00 70 15 112/54 (73) 100 03/21/19 17:00 76 15 125/49 (74) 99 03/21/19 16:55 72 26 30 03/21/19 16:00 98.8 77 26 123/49 (73) 100 03/21/19 16:00 30 03/21/19 16:00 Mechanical Ventilator Mechanical Ventilator 03/21/19 15:36 74 03/21/19 15:13 72 26 30 03/21/19 15:00 72 24 119/45 (69) 98 03/21/19 14:00 74 26 137/56 (83) 99 03/21/19 13:00 73 16 127/47 (73) 99 03/21/19 12:55 72 27 30 Intake and Output 03/21/19 03/22/19 19:00 07:00 Intake Total 1450.333 ml 1150.000 ml Output Total 1420 ml 550 ml Balance 30.333 ml 600.000 ml Free Water 400 ml 100 ml IV Total 330.333 ml 330.000 ml Tube Feeding 720 ml 720 ml Output Urine Total 1420 ml 550 ml # Bowel Movements 1 Laboratory Tests 03/21/19 23:00: Vancomycin Level Trough 19.4H 03/22/19 04:40: Sodium Level 145, Potassium Level 4.1, Chloride Level 111H, Carbon Dioxide Level 32, Anion Gap 2L, Blood Urea Nitrogen 18, Creatinine 0.6, Estimat Glomerular Filtration Rate , Glucose Level 131H, Calcium Level 8.4L, Phosphorus Level 2.6, Magnesium Level 2.0 03/22/19 11:30: Arterial Blood pH 7.428, Arterial Blood Partial Pressure CO2 45.8H, Arterial Blood Partial Pressure O2 84.6, Arterial Blood HCO3 29.6H, Arterial Blood Oxygen Saturation 95.7, Arterial Blood Base Excess 4.6H, Jose Luis Test Positive Height (Feet): 5 Height (Inches): 8.00 Weight (Pounds): 170 General Appearance: lethargic, confused EENT: other - intubated Neck: normal alignment Cardiovascular: normal rate, regular rhythm Respiratory/Chest: rhonchi - bilaterally Abdomen: non tender, soft Extremities: moderate edema Neurologic: motor weakness, disoriented Lamberto Álvarez MD March 22, 2019 12:06
[2019-03-22] MEDS: Bumetanide 2.5mg/10ml Inj IVP SCH (12:38)
--- NOTE | 2019-03-22 14:15 | Cardiology Progress Note ---
Assessment/Plan Problem List: (1) Systolic heart failure (2) Dyspnea (3) Respiratory distress (4) CVA, old, hemiparesis (5) Dementia Status: stable, unchanged Status Narrative Pt w/ LV systolic dysfunction, EF 25-30% by ECHO. i/o + 7 L since adm On vent, undergoing weaning trial today - tolerated CPAP from 9 am- 2 pm Assessment/Plan Continue weaning trials per pulmonary. Agree w/ diuretics -currently on bumex iv. Will add diamox for diuresis and met alkalosis. CXR shows pulm vascular congestion and small effusions. will increase lisinopril to 10 mg/d for afterload reduction. followup labs in am Subjective ROS Limited/Unobtainable: Yes Subjective Cardiology for Dr. Bliss Pt intubated, awake. On CPAP trial , on vent Objective Last 24 Hour Vital Signs Date Time Temp Pulse Resp B/P (MAP) Pulse Ox O2 Delivery O2 Flow Rate FiO2 03/22/19 14:00 85 32 160/60 (93) 100 03/22/19 13:00 84 23 30 03/22/19 13:00 88 30 151/63 (92) 100 03/22/19 12:00 98.9 86 29 151/63 (92) 100 03/22/19 12:00 87 03/22/19 12:00 30 03/22/19 12:00 Mechanical Ventilator Mechanical Ventilator 03/22/19 11:24 88 31 30 03/22/19 11:00 85 29 152/59 (90) 98 03/22/19 10:00 68 29 161/62 (95) 99 03/22/19 09:00 62 28 162/61 (94) 100 03/22/19 09:00 30 03/22/19 08:56 157/69 03/22/19 08:51 83 23 30 03/22/19 08:45 83 25 30 03/22/19 08:45 30 03/22/19 08:00 73 03/22/19 08:00 99.2 71 14 134/58 (83) 100 03/22/19 08:00 Mechanical Ventilator Mechanical Ventilator 03/22/19 08:00 30 03/22/19 07:00 98.0 73 14 146/56 (86) 100 03/22/19 06:48 72 14 30 03/22/19 06:00 75 14 134/55 (81) 100 03/22/19 05:11 79 15 30 03/22/19 05:00 79 20 153/59 (90) 99 03/22/19 04:00 Mechanical Ventilator Mechanical Ventilator 03/22/19 04:00 77 03/22/19 04:00 72 15 145/64 (91) 99 03/22/19 04:00 30 03/22/19 03:16 75 18 30 03/22/19 03:00 75 17 133/51 (78) 99 03/22/19 02:00 74 16 133/55 (81) 98 03/22/19 01:00 73 14 122/52 (75) 98 03/22/19 00:57 73 14 30 03/22/19 00:00 98.4 74 14 122/55 (77) 99 03/22/19 00:00 30 03/22/19 00:00 71 03/22/19 00:00 Mechanical Ventilator Mechanical Ventilator 03/21/19 23:00 74 15 129/58 (81) 99 03/21/19 22:45 74 15 30 03/21/19 22:00 74 15 130/53 (78) 99 03/21/19 21:00 70 15 107/45 (65) 100 03/21/19 20:55 71 15 30 03/21/19 20:00 30 03/21/19 20:00 74 18 122/56 (78) 99 03/21/19 20:00 74 03/21/19 20:00 Mechanical Ventilator Mechanical Ventilator 03/21/19 19:05 74 14 30 03/21/19 19:00 73 16 104/50 (68) 99 03/21/19 18:00 70 15 112/54 (73) 100 03/21/19 17:00 76 15 125/49 (74) 99 03/21/19 16:55 72 26 30 03/21/19 16:00 98.8 77 26 123/49 (73) 100 03/21/19 16:00 30 03/21/19 16:00 Mechanical Ventilator Mechanical Ventilator 03/21/19 15:36 74 03/21/19 15:13 72 26 30 03/21/19 15:00 72 24 119/45 (69) 98 General Appearance: WD/WN, obese, on vent EENT: PERRL/EOMI, other - et tube Neck: supple, no JVD Rhythm: NSR Cardiovascular: normal rate, regular rhythm, other - distant ht sounds Respiratory/Chest: other - few rhonchi anteriorly Abdomen: normal bowel sounds, soft, other - + g tube Intake and Output 03/21/19 03/22/19 18:59 06:59 Intake Total 1450.333 ml 1150.000 ml Output Total 1675 ml 545 ml Balance -224.667 ml 605.000 ml Free Water 400 ml 100 ml IV Total 330.333 ml 330.000 ml Tube Feeding 720 ml 720 ml Output Urine Total 1675 ml 545 ml # Bowel Movements 1 Laboratory Tests Test 03/21/19 23:00 03/22/19 04:40 03/22/19 11:30 Vancomycin Level Trough 19.4 ug/mL (5.0-12.0) H Sodium Level 145 MMOL/L (136-145) Potassium Level 4.1 MMOL/L (3.5-5.1) Chloride Level 111 MMOL/L (98-107) H Carbon Dioxide Level 32 MMOL/L (21-32) Anion Gap 2 mmol/L (5-15) L Blood Urea Nitrogen 18 mg/dL (7-18) Creatinine 0.6 MG/DL (0.55-1.30) Estimat Glomerular Filtration Rate mL/min (>60) Glucose Level 131 MG/DL (74-106) H Calcium Level 8.4 MG/DL (8.5-10.1) L Phosphorus Level 2.6 MG/DL (2.5-4.9) Magnesium Level 2.0 MG/DL (1.8-2.4) Arterial Blood pH 7.428 (7.350-7.450) Arterial Blood Partial Pressure CO2 45.8 mmHg (35.0-45.0) H Arterial Blood Partial Pressure O2 84.6 mmHg (75.0-100.0) Arterial Blood HCO3 29.6 mmol/L (22.0-26.0) H Arterial Blood Oxygen Saturation 95.7 % (95-100) Arterial Blood Base Excess 4.6 (-2-2) H Jose Luis Test Positive Donya Tamez MD March 22, 2019 14:15
--- NOTE | 2019-03-22 16:13 | Infectious Diseases Prog Note ---
Assessment/Plan Assessment/Plan ASSESSMENT/PLAN: 1. 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 Respiratory failure, on vent - weaning per pulmonary 3. Diabetes. 4. Hypertension. 5. Blood sugar and blood pressure treatment per primary for diabetes and hypertension. 6. Atrial fibrillation. 7. Heart failure. 8. G-tube. 9. Skin care protocol. 10. Cardiomegaly. 11. CAD and MD. 12. Hyperlipidemia. 13. Seizure disorder. 14. GERD. 15. History of CVA. 16. Allergic to penicillin and sulfa, tolerates meropenem. 17. Social history is negative. 18. Family history is noncontributory. 19. MAR is noted. 20. Case discussed with Dr. Franks. 21. Continue treatment per primary consultants. Subjective Constitutional: Reports: other; Denies: fever HEENT: Reports: congestion Respiratory: Reports: shortness of breath Gastrointestinal/Abdominal: Denies: nausea, vomiting, diarrhea Genitourinary: Reports: other - + macias Neurologic: Denies: headache Skin: Denies: rash Hematologic: Denies: bleeding Musculoskeletal: Denies: pain Allergies: Coded Allergies: PENICILLINS (Verified Allergy, Unknown, 02/04/18) SULFA (SULFONAMIDE ANTIBIOTICS) (Verified Allergy, Unknown, 02/04/18) SULFACETAMIDE (Unverified Allergy, Unknown, 06/24/18) Objective Vital Signs Last 24 Hour Vital Signs Date Time Temp Pulse Resp B/P (MAP) Pulse Ox O2 Delivery O2 Flow Rate FiO2 03/22/19 15:00 85 30 159/63 (95) 100 03/22/19 14:50 83 28 30 03/22/19 14:00 85 32 160/60 (93) 100 03/22/19 13:00 84 23 30 03/22/19 13:00 88 30 151/63 (92) 100 03/22/19 12:00 98.9 86 29 151/63 (92) 100 03/22/19 12:00 87 03/22/19 12:00 30 03/22/19 12:00 Mechanical Ventilator Mechanical Ventilator 03/22/19 11:24 88 31 30 03/22/19 11:00 85 29 152/59 (90) 98 03/22/19 10:00 68 29 161/62 (95) 99 03/22/19 09:00 62 28 162/61 (94) 100 03/22/19 09:00 30 03/22/19 08:56 157/69 03/22/19 08:51 83 23 30 03/22/19 08:45 83 25 30 03/22/19 08:45 30 03/22/19 08:00 73 03/22/19 08:00 99.2 71 14 134/58 (83) 100 03/22/19 08:00 Mechanical Ventilator Mechanical Ventilator 03/22/19 08:00 30 03/22/19 07:00 98.0 73 14 146/56 (86) 100 03/22/19 06:48 72 14 30 03/22/19 06:00 75 14 134/55 (81) 100 03/22/19 05:11 79 15 30 03/22/19 05:00 79 20 153/59 (90) 99 03/22/19 04:00 Mechanical Ventilator Mechanical Ventilator 03/22/19 04:00 77 03/22/19 04:00 72 15 145/64 (91) 99 03/22/19 04:00 30 03/22/19 03:16 75 18 30 03/22/19 03:00 75 17 133/51 (78) 99 03/22/19 02:00 74 16 133/55 (81) 98 03/22/19 01:00 73 14 122/52 (75) 98 03/22/19 00:57 73 14 30 03/22/19 00:00 98.4 74 14 122/55 (77) 99 03/22/19 00:00 30 03/22/19 00:00 71 03/22/19 00:00 Mechanical Ventilator Mechanical Ventilator 03/21/19 23:00 74 15 129/58 (81) 99 03/21/19 22:45 74 15 30 03/21/19 22:00 74 15 130/53 (78) 99 03/21/19 21:00 70 15 107/45 (65) 100 03/21/19 20:55 71 15 30 03/21/19 20:00 30 03/21/19 20:00 74 18 122/56 (78) 99 03/21/19 20:00 74 03/21/19 20:00 Mechanical Ventilator Mechanical Ventilator 03/21/19 19:05 74 14 30 03/21/19 19:00 73 16 104/50 (68) 99 03/21/19 18:00 70 15 112/54 (73) 100 03/21/19 17:00 76 15 125/49 (74) 99 03/21/19 16:55 72 26 30 03/21/19 16:00 98.8 77 26 123/49 (73) 100 03/21/19 16:00 30 03/21/19 16:00 Mechanical Ventilator Mechanical Ventilator Height (Feet): 5 Height (Inches): 8.00 Weight (Pounds): 170 General Appearance: other - on vent, opens eyes HEENT: normocephalic, atraumatic, anicteric Respiratory/Chest: crackles/rales, rhonchi - bilaterally Cardiovascular: normal rate, regular rhythm Abdomen: soft, non tender, no organomegaly, non distended Genitourinary: other - + macias Extremities: no cyanosis Skin: no rash Neurologic/Psychiatric: septic technician II-XII grossly normal, alert, responsive Lymphatic: no neck adenopathy Musculoskeletal: no effusion Objective Chest x-ray - 03/15 - Comparison: 03/12/2019 A single view chest radiograph was obtained. Findings: Endotracheal tube and right jugular line are stable. Mild pulmonary vascular congestion suspected. IMPRESSION: No change from the prior exam. Mild CHF suspected Chest x-ray - 03/17/19 - Comparison: 03/15/2019 A single view chest radiograph was obtained. Findings: Vascular congestion demonstrated. Tubes and lines are stable. Heart size is mildly enlarged and stable. Small right pleural effusion suspected. IMPRESSION: No change from the previous examination. Suspected CHF Microbiology Date/Time Source Procedure Growth Status 03/09/19 14:10 Blood Blood Culture - Final Staphylococcus Sp Coag Neg Complete 03/09/19 22:00 Sputum Induced Gram Stain - Final Complete 03/09/19 22:00 Sputum Culture - Final Providencia Stuartii Mariposa Tropicalis Usual Respiratory Minoo Complete 03/11/19 17:00 Indwelling Cath Urine Culture - Final Escherichia Coli - Esbl Complete 03/09/19 14:35 Rectum VRE Culture - Final NO VANCOMYCIN RESISTANT ENTEROCOCCUS ... Complete 03/09/19 14:35 Rectum - Final NO CARBAPENEM-RESISTANT ENTEROBACTERI... Complete Labs Test 03/20/19 04:10 03/20/19 10:30 03/20/19 11:25 03/21/19 04:00 White Blood Count 6.7 K/UL (4.8-10.8) 6.1 K/UL (4.8-10.8) Red Blood Count 2.74 M/UL (4.20-5.40) 2.49 M/UL (4.20-5.40) Hemoglobin 9.1 G/DL (12.0-16.0) 8.3 G/DL (12.0-16.0) Hematocrit 27.6 % (37.0-47.0) 24.7 % (37.0-47.0) Mean Corpuscular Volume 101 FL (80-99) 99 FL (80-99) Mean Corpuscular Hemoglobin 33.3 PG (27.0-31.0) 33.2 PG (27.0-31.0) Mean Corpuscular Hemoglobin Concent 33.0 G/DL (32.0-36.0) 33.6 G/DL (32.0-36.0) Red Cell Distribution Width 13.2 % (11.6-14.8) 13.5 % (11.6-14.8) Platelet Count 263 K/UL (150-450) 236 K/UL (150-450) Mean Platelet Volume 6.8 FL (6.5-10.1) 5.4 FL (6.5-10.1) Neutrophils (%) (Auto) 60.7 % (45.0-75.0) 63.5 % (45.0-75.0) Lymphocytes (%) (Auto) 29.2 % (20.0-45.0) 26.0 % (20.0-45.0) Monocytes (%) (Auto) 5.3 % (1.0-10.0) 4.8 % (1.0-10.0) Eosinophils (%) (Auto) 4.1 % (0.0-3.0) 5.1 % (0.0-3.0) Basophils (%) (Auto) 0.7 % (0.0-2.0) 0.6 % (0.0-2.0) Sodium Level 144 MMOL/L (136-145) 144 MMOL/L (136-145) Potassium Level 4.0 MMOL/L (3.5-5.1) 3.4 MMOL/L (3.5-5.1) Chloride Level 106 MMOL/L (98-107) 109 MMOL/L (98-107) Carbon Dioxide Level 38 MMOL/L (21-32) 33 MMOL/L (21-32) Anion Gap 0 mmol/L (5-15) 2 mmol/L (5-15) Blood Urea Nitrogen 15 mg/dL (7-18) 15 mg/dL (7-18) Creatinine 0.6 MG/DL (0.55-1.30) 0.6 MG/DL (0.55-1.30) Estimat Glomerular Filtration Rate mL/min (>60) mL/min (>60) Glucose Level 154 MG/DL (74-106) 113 MG/DL (74-106) Calcium Level 8.4 MG/DL (8.5-10.1) 8.4 MG/DL (8.5-10.1) Total Bilirubin 0.1 MG/DL (0.2-1.0) Aspartate Amino Transf (AST/SGOT) 23 U/L (15-37) Alanine Aminotransferase (ALT/SGPT) 13 U/L (12-78) Alkaline Phosphatase 93 U/L (46-116) Total Protein 6.4 G/DL (6.4-8.2) Albumin 1.6 G/DL (3.4-5.0) Globulin 4.8 g/dL Albumin/Globulin Ratio 0.3 (1.0-2.7) Vancomycin Level Trough 11.9 ug/mL (5.0-12.0) Arterial Blood pH 7.523 (7.350-7.450) Arterial Blood Partial Pressure CO2 40.0 mmHg (35.0-45.0) Arterial Blood Partial Pressure O2 114.4 mmHg (75.0-100.0) Arterial Blood HCO3 32.2 mmol/L (22.0-26.0) Arterial Blood Oxygen Saturation 98.1 % (95-100) Arterial Blood Base Excess 8.6 (-2-2) Jose Luis Test Positive Test 03/21/19 23:00 03/22/19 04:40 03/22/19 11:30 Vancomycin Level Trough 19.4 ug/mL (5.0-12.0) Sodium Level 145 MMOL/L (136-145) Potassium Level 4.1 MMOL/L (3.5-5.1) Chloride Level 111 MMOL/L (98-107) Carbon Dioxide Level 32 MMOL/L (21-32) Anion Gap 2 mmol/L (5-15) Blood Urea Nitrogen 18 mg/dL (7-18) Creatinine 0.6 MG/DL (0.55-1.30) Estimat Glomerular Filtration Rate mL/min (>60) Glucose Level 131 MG/DL (74-106) Calcium Level 8.4 MG/DL (8.5-10.1) Phosphorus Level 2.6 MG/DL (2.5-4.9) Magnesium Level 2.0 MG/DL (1.8-2.4) Arterial Blood pH 7.428 (7.350-7.450) Arterial Blood Partial Pressure CO2 45.8 mmHg (35.0-45.0) Arterial Blood Partial Pressure O2 84.6 mmHg (75.0-100.0) Arterial Blood HCO3 29.6 mmol/L (22.0-26.0) Arterial Blood Oxygen Saturation 95.7 % (95-100) Arterial Blood Base Excess 4.6 (-2-2) Jose Luis Test Positive Laboratory Tests Test 03/21/19 23:00 03/22/19 04:40 03/22/19 11:30 Vancomycin Level Trough 19.4 ug/mL (5.0-12.0) H Sodium Level 145 MMOL/L (136-145) Potassium Level 4.1 MMOL/L (3.5-5.1) Chloride Level 111 MMOL/L (98-107) H Carbon Dioxide Level 32 MMOL/L (21-32) Anion Gap 2 mmol/L (5-15) L Blood Urea Nitrogen 18 mg/dL (7-18) Creatinine 0.6 MG/DL (0.55-1.30) Estimat Glomerular Filtration Rate mL/min (>60) Glucose Level 131 MG/DL (74-106) H Calcium Level 8.4 MG/DL (8.5-10.1) L Phosphorus Level 2.6 MG/DL (2.5-4.9) Magnesium Level 2.0 MG/DL (1.8-2.4) Arterial Blood pH 7.428 (7.350-7.450) Arterial Blood Partial Pressure CO2 45.8 mmHg (35.0-45.0) H Arterial Blood Partial Pressure O2 84.6 mmHg (75.0-100.0) Arterial Blood HCO3 29.6 mmol/L (22.0-26.0) H Arterial Blood Oxygen Saturation 95.7 % (95-100) Arterial Blood Base Excess 4.6 (-2-2) H Jose Luis Test Positive Current Medications Medications (Trade) Dose Ordered Sig/Singh Route PRN Reason Start Time Stop Time Status Last Admin Dose Admin Acetaminophen (Tylenol) 650 mg Q4H PRN GT Mild Pain/Temp > 100.5 03/09/19 20:30 04/08/19 20:29 03/17/19 16:35 Bumetanide (Bumex) 1 mg DAILY IVP 03/22/19 12:30 04/21/19 12:29 03/22/19 12:38 Chlorhexidine Gluconate (Azra-Hex 2%) 1 applic DAILY@2000 TOPIC 03/10/19 20:00 04/09/19 19:59 03/21/19 21:27 Dextrose (Dextrose 50%) 25 ml Q30M PRN IV Hypoglycemia 03/09/19 21:00 04/08/19 20:59 Dextrose (Dextrose 50%) 50 ml Q30M PRN IV Hypoglycemia 03/09/19 21:00 04/08/19 20:59 Insulin Aspart (NovoLOG) EVERY 6 HOURS SUBQ 03/10/19 00:00 04/09/19 00:00 03/22/19 12:44 Lisinopril (Zestril) 10 mg DAILY GT 03/23/19 09:00 04/19/19 14:59 Meropenem 1 gm/ Sodium Chloride 55 ml @ 110 mls/hr Q12HR@0000,1200 IVPB 03/21/19 00:00 03/25/19 23:59 03/22/19 12:38 Pantoprazole (Protonix) 40 mg DAILY IVP 03/10/19 09:00 04/09/19 08:59 03/22/19 08:56 Phenytoin (Dilantin) 125 mg Q12HR GT 03/09/19 21:00 04/08/19 20:59 03/22/19 08:55 Potassium Chloride (K-Dur) 40 meq TID GT 03/21/19 10:00 04/20/19 09:59 03/22/19 12:37 Vancomycin HCl (Vanco rx to dose) 1 ea DAILY PRN MISC Per rx protocol 03/18/19 14:41 04/17/19 14:40 Vancomycin HCl 750 mg/Sodium Chloride 275 ml @ 183.333 mls/hr Q12H IVPB 03/20/19 12:00 03/25/19 11:59 03/22/19 12:38 Prashanth Osborne MD March 22, 2019 16:13
[2019-03-22] MEDS: Dyna-Hex 2% Top Sol 2oz TOPIC SCH (20:12)
--- NOTE | 2019-03-22 22:40 | Neurology Progress Note ---
Interim History Interim History ROS Limited/Unobtainable: Yes Complaints: AMS Events: This visit was performed on March 22, 2019 Interim History Patient has tolerated most recent weaning trial fairly well as per staff research scientist. AMS is stable, slightly more lethargic s/p SB trials Objective Physical Exam Last Vital Signs Date Time Temp Pulse Resp B/P (MAP) Pulse Ox O2 Delivery O2 Flow Rate FiO2 03/22/19 22:09 70 20 30 03/22/19 20:00 134/54 (80) 100 03/22/19 20:00 Mechanical Ventilator Mechanical Ventilator 03/22/19 19:00 98.5 Laboratory Tests Test 03/21/19 23:00 03/22/19 04:40 03/22/19 11:30 Vancomycin Level Trough 19.4 ug/mL (5.0-12.0) H Sodium Level 145 MMOL/L (136-145) Potassium Level 4.1 MMOL/L (3.5-5.1) Chloride Level 111 MMOL/L (98-107) H Carbon Dioxide Level 32 MMOL/L (21-32) Anion Gap 2 mmol/L (5-15) L Blood Urea Nitrogen 18 mg/dL (7-18) Creatinine 0.6 MG/DL (0.55-1.30) Estimat Glomerular Filtration Rate mL/min (>60) Glucose Level 131 MG/DL (74-106) H Calcium Level 8.4 MG/DL (8.5-10.1) L Phosphorus Level 2.6 MG/DL (2.5-4.9) Magnesium Level 2.0 MG/DL (1.8-2.4) Arterial Blood pH 7.428 (7.350-7.450) Arterial Blood Partial Pressure CO2 45.8 mmHg (35.0-45.0) H Arterial Blood Partial Pressure O2 84.6 mmHg (75.0-100.0) Arterial Blood HCO3 29.6 mmol/L (22.0-26.0) H Arterial Blood Oxygen Saturation 95.7 % (95-100) Arterial Blood Base Excess 4.6 (-2-2) H Jose Luis Test Positive General: well developed, well nourished Head: normocophalic, atraumatic Neck: no rigidity EENT: benign Neurologic Exam Mental Status: awake Cranial Nerve II: no papilledema Cranial Nerves III, IV, : PERRLA, EOMI Cranial Nerve VIII: normal hearing Cranial Nerve XII: tongue midline Motor System: other - Right sided hemiplegia with TF in leg and min withdrawal at shoulder / Left sided w/d and apparent full strength to noxious stimuli Sensory: other - Some indication of paresthesia requiring increased noxious stimuli on right side Gait: normal regular Objective Remains intubated on ventilator, with gag reflex, frequently chewing ETT and moving tongue around. She is now making meaningful eye contact and tracking with her eyes. As per her granddaughter, she is now approximately back to her baseline - which was tracking people with her eyes, moving/ turning her head, she could be sounds but no formal speech. 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 Right facial weakness of whole face, including eye. Possible sensory loss on right side due to need for increased noxious stimulus to induce response. Right side plegic, with slight movement proximally > distally. Left side w/d and UE now in restraints because exhibiting full strength Impression/Recommendations Problems: (1) Acute encephalopathy Assessment & Plan: Still not following commands. As per granddaughter - she does not do this at baseline She is closer to her baseline but lethargic today following weaning trials again. (2) Septic shock (3) Respiratory failure (4) Dementia (5) Altered level of consciousness (6) CVA, old, hemiparesis Assessment & Plan: CT Brain 03/09/19: Old left parietal and occipital infarct Moderate atrophy of the brain. 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 (7) Diabetes Status: stable, unchanged Diagnostic Impression MRI ordered to rule out acute stroke as cause of increased AMS and respiratory failure but unable to obtain at this time due to ventilatory status Wean Vent as able - failed trials x 2, now off sedation with increased lethargy on exam. Maintain Normoglycemia with ISS May start ASA HgB> 8 - dropping on CBC, track and trend Maintain normoglycemia with ISS Continue enteral feeding SBP< 140 Discussion with family regarding goals of care Recommendations Q 2 hour neuro obs Abx as needed Will likely need Tracheostomy as unable to be weaned off vent at this time. Replete/ Correct Lytes as necessary Discuss Tracheostomy transition with family - if most recent round of SBTs fails Discuss goals of care with family - DNR vs hospice vs terminal extubation Seroquel 25mg QD PRN for agitation- can be increased if necessary Continue Phenytoin but no indication for increased dosage or addition of second line AED please avoid benzos, opioids, anticholinergic drugs if the goal of treatment is to wean- This was a critical care note. Critical care time of 40 minutes, was performed in order to assess and manage the high probability of imminent or life threatening deterioration to respiratory/neurologic function, with frequent reassessment and excludes all billable procedures. Ngozi Franklin N.P. March 22, 2019 22:40
[2019-03-23] VITALS (22 sets, daily range): BP systolic 119–168; BP diastolic 40–123
[2019-03-23] MEDS: Vancomycin 750mg/NS 275ml IVPB SCH ×6 (01:19→23:28)
[2019-03-23] MEDS: Meropenem 1 GM in NS 55 ML IVPB SCH ×3 (01:20→23:28)
[2019-03-23] MEDS: NovoLOG Insulin Flexpen SUBQ SCH ×5 (01:21→23:29)
[2019-03-23 06:24] LABS: ANION GAP 3 mmol/L (5-15); BLOOD UREA NITROGEN 17 mg/dL (7-18); CALCIUM 8.5 MG/DL (8.5-10.1); CARBON DIOXIDE 33 MMOL/L (21-32); CHLORIDE 113 MMOL/L (98-107); CREATININE 0.6 MG/DL (0.55-1.30); POTASSIUM 4.9 MMOL/L (3.5-5.1); SODIUM 148 MMOL/L (136-145)
[2019-03-23] MEDS: Lisinopril 2.5mg tab GT SCH (08:36)
[2019-03-23] MEDS: Phenytoin Susp 100mg/4ml GT SCH ×2 (08:36→20:32)
[2019-03-23] MEDS: Pantoprazole Inj IVP SCH (08:37)
[2019-03-23] MEDS: Bumetanide 2.5mg/10ml Inj IVP SCH (08:37)
--- NOTE | 2019-03-23 12:42 | Pulmonology Progress Note ---
Assessment/Plan Assessment/Plan 1. Acute respiratory failure. 2. Severe dehydration with shock. 3. Severe hypernatremia. 4. Multi-infarct dementia. 5. Possible acute myocardial infarction. 6. History of heart failure. 7. History of atrial fibrillation. 8. Gastric tube with dysphagia. 9. History of chronic obstructive pulmonary disease. 10. History of seizures with therapeutic Dilantin level. 11. History of hypertension. 12. Hyperlipidemia. 13. Diabetes. 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 - tolerated well Extubate today MRI brain disc w RN at bedside cont present rx adjust IVs per renal re high Na Subjective ROS Limited/Unobtainable: Yes Allergies: Coded Allergies: PENICILLINS (Verified Allergy, Unknown, 02/04/18) SULFA (SULFONAMIDE ANTIBIOTICS) (Verified Allergy, Unknown, 02/04/18) SULFACETAMIDE (Unverified Allergy, Unknown, 06/24/18) Objective Last 24 Hour Vital Signs Date Time Temp Pulse Resp B/P (MAP) Pulse Ox O2 Delivery O2 Flow Rate FiO2 03/23/19 12:00 30 03/23/19 12:00 Mechanical Ventilator Mechanical Ventilator 03/23/19 12:00 76 03/23/19 12:00 98.4 80 22 154/59 (90) 100 03/23/19 11:12 67 27 30 03/23/19 11:00 71 18 148/60 (89) 100 03/23/19 10:00 66 16 149/55 (86) 100 03/23/19 09:10 100 03/23/19 09:06 67 30 30 03/23/19 09:03 61 16 30 03/23/19 09:00 66 16 132/50 (77) 100 03/23/19 09:00 30 03/23/19 08:36 155/62 03/23/19 08:00 Mechanical Ventilator Mechanical Ventilator 03/23/19 08:00 64 03/23/19 08:00 30 03/23/19 08:00 64 16 155/62 (93) 100 03/23/19 07:00 98.6 66 24 149/64 (92) 100 03/23/19 06:57 47 16 30 03/23/19 06:00 58 18 100 03/23/19 05:00 59 18 126/45 (72) 100 03/23/19 04:38 61 18 30 03/23/19 04:00 Mechanical Ventilator Mechanical Ventilator 03/23/19 04:00 66 03/23/19 04:00 30 03/23/19 04:00 63 17 127/50 (75) 100 03/23/19 03:24 52 14 30 03/23/19 03:00 53 17 119/40 (66) 100 03/23/19 02:00 63 16 136/54 (81) 100 03/23/19 01:06 76 25 30 03/23/19 01:00 98.8 65 24 160/123 (135) 100 03/23/19 00:00 Mechanical Ventilator Mechanical Ventilator 03/23/19 00:00 30 03/23/19 00:00 63 03/23/19 00:00 68 22 160/57 (91) 100 03/22/19 23:25 60 25 30 03/22/19 23:00 64 22 151/58 (89) 100 03/22/19 22:09 70 20 30 03/22/19 22:00 71 23 169/66 (100) 100 03/22/19 21:00 71 18 165/59 (94) 100 03/22/19 20:00 70 03/22/19 20:00 74 15 134/54 (80) 100 03/22/19 20:00 30 03/22/19 20:00 Mechanical Ventilator Mechanical Ventilator 03/22/19 19:30 77 18 30 03/22/19 19:00 98.5 79 16 130/49 (76) 99 03/22/19 18:08 85 23 30 03/22/19 18:00 79 24 166/68 (100) 100 03/22/19 17:00 78 27 150/55 (86) 100 03/22/19 16:42 78 25 30 03/22/19 16:00 Mechanical Ventilator Mechanical Ventilator 03/22/19 16:00 81 03/22/19 16:00 79 27 151/55 (87) 100 03/22/19 16:00 30 03/22/19 15:00 85 30 159/63 (95) 100 03/22/19 14:50 83 28 30 03/22/19 14:00 85 32 160/60 (93) 100 03/22/19 13:00 84 23 30 03/22/19 13:00 88 30 151/63 (92) 100 Intake and Output 03/22/19 03/23/19 19:00 07:00 Intake Total 1480 ml 1350 ml Output Total 1255 ml 525 ml Balance 225 ml 825 ml Free Water 400 ml 300 ml IV Total 330 ml 330 ml Tube Feeding 720 ml 720 ml Other 30 ml Output Urine Total 1255 ml 525 ml Objective GT HEENT: atraumatic Respiratory/Chest: lungs clear, decreased breath sounds Cardiovascular: normal rate Abdomen: soft, non tender Microbiology Date/Time Source Procedure Growth Status 03/22/19 23:30 Sputum Induced Gram Stain - Final Resulted 03/22/19 23:30 Sputum Induced Sputum Culture Pending Resulted Laboratory Tests 03/23/19 05:00: Sodium Level 148H, Potassium Level 4.9, Chloride Level 113H, Carbon Dioxide Level 33H, Anion Gap 3L, Blood Urea Nitrogen 17, Creatinine 0.6, Estimat Glomerular Filtration Rate , Glucose Level 131H, Calcium Level 8.5 Current Medications Medications (Trade) Dose Ordered Sig/Singh Route PRN Reason Start Time Stop Time Status Last Admin Dose Admin Acetaminophen (Tylenol) 650 mg Q4H PRN GT Mild Pain/Temp > 100.5 03/09/19 20:30 04/08/19 20:29 03/17/19 16:35 Bumetanide (Bumex) 1 mg DAILY IVP 03/22/19 12:30 04/21/19 12:29 03/23/19 08:37 Chlorhexidine Gluconate (Azra-Hex 2%) 1 applic DAILY@2000 TOPIC 03/10/19 20:00 04/09/19 19:59 03/22/19 20:12 Dextrose (Dextrose 50%) 25 ml Q30M PRN IV Hypoglycemia 03/09/19 21:00 04/08/19 20:59 Dextrose (Dextrose 50%) 50 ml Q30M PRN IV Hypoglycemia 03/09/19 21:00 04/08/19 20:59 Insulin Aspart (NovoLOG) EVERY 6 HOURS SUBQ 03/10/19 00:00 04/09/19 00:00 03/23/19 01:21 Lisinopril (Zestril) 10 mg DAILY GT 03/23/19 09:00 04/19/19 14:59 03/23/19 08:36 Meropenem 1 gm/ Sodium Chloride 55 ml @ 110 mls/hr Q12HR@0000,1200 IVPB 03/21/19 00:00 03/25/19 23:59 03/23/19 11:18 Pantoprazole (Protonix) 40 mg DAILY IVP 03/10/19 09:00 04/09/19 08:59 03/23/19 08:37 Phenytoin (Dilantin) 125 mg Q12HR GT 03/09/19 21:00 04/08/19 20:59 03/23/19 08:36 Potassium Chloride (K-Dur) 40 meq TID GT 03/21/19 10:00 04/20/19 09:59 03/22/19 17:48 Vancomycin HCl (Vanco rx to dose) 1 ea DAILY PRN MISC Per rx protocol 03/18/19 14:41 04/17/19 14:40 Vancomycin HCl 750 mg/Sodium Chloride 275 ml @ 183.333 mls/hr Q12H IVPB 03/20/19 12:00 03/25/19 11:59 03/23/19 11:18 Fernando Franks MD March 23, 2019 12:42
[2019-03-23] MEDS ORDERED: Lidocaine 1% Plain 30 ml INJ PRN (13:15)
[2019-03-23] MEDS ORDERED: Heparin1,000 units/500ml Premix(Conc:2 units/ml) IV PRN (13:15)
--- NOTE | 2019-03-23 16:12 | Cardiology Progress Note ---
Assessment/Plan Assessment/Plan 1. Hypernatremia free water deficit 2. Likely demand ischemia 3. Metabolic alkalosis. 4. altered mentation secondary to above. 5. Anemia, mild. 6. History of seizures. 7. Diabetes history. 8. Hypertension history. 9. hs of diastolic failure 10.New LV systolic dysfunction ? 11. bactermia 12 edema 03/10 echo report noted some echo views were reviewed may not have as bad an lv function as reported atlhgouh the images are not typical stress induced cm may be in the differential on iv abx hemodynamic are stable tele monitor sinus on iv abx diuretics extra this evening extubated earlier today far looks good d/w dtr at bedside na may be increased dut o diuretic may need freee water and diuretic at the same time Subjective ROS Limited/Unobtainable: Yes Objective Last 24 Hour Vital Signs Date Time Temp Pulse Resp B/P (MAP) Pulse Ox O2 Delivery O2 Flow Rate FiO2 03/23/19 14:00 83 24 149/58 (88) 100 03/23/19 13:00 84 18 161/64 (96) 100 03/23/19 13:00 71 27 161/64 (96) 100 03/23/19 12:57 Nasal Cannula 4.0 36 03/23/19 12:00 30 03/23/19 12:00 Mechanical Ventilator Mechanical Ventilator 03/23/19 12:00 76 03/23/19 12:00 98.4 80 22 154/59 (90) 100 03/23/19 11:12 67 27 30 03/23/19 11:00 71 18 148/60 (89) 100 03/23/19 10:00 66 16 149/55 (86) 100 03/23/19 09:10 100 03/23/19 09:06 67 30 30 03/23/19 09:03 61 16 30 03/23/19 09:00 66 16 132/50 (77) 100 03/23/19 09:00 30 03/23/19 08:36 155/62 03/23/19 08:00 Mechanical Ventilator Mechanical Ventilator 03/23/19 08:00 64 03/23/19 08:00 30 03/23/19 08:00 64 16 155/62 (93) 100 03/23/19 07:00 98.6 66 24 149/64 (92) 100 03/23/19 06:57 47 16 30 03/23/19 06:00 58 18 100 03/23/19 05:00 59 18 126/45 (72) 100 03/23/19 04:38 61 18 30 03/23/19 04:00 Mechanical Ventilator Mechanical Ventilator 03/23/19 04:00 66 03/23/19 04:00 30 03/23/19 04:00 63 17 127/50 (75) 100 03/23/19 03:24 52 14 30 03/23/19 03:00 53 17 119/40 (66) 100 03/23/19 02:00 63 16 136/54 (81) 100 03/23/19 01:06 76 25 30 03/23/19 01:00 98.8 65 24 160/123 (135) 100 03/23/19 00:00 Mechanical Ventilator Mechanical Ventilator 03/23/19 00:00 30 03/23/19 00:00 63 03/23/19 00:00 68 22 160/57 (91) 100 03/22/19 23:25 60 25 30 03/22/19 23:00 64 22 151/58 (89) 100 03/22/19 22:09 70 20 30 03/22/19 22:00 71 23 169/66 (100) 100 03/22/19 21:00 71 18 165/59 (94) 100 03/22/19 20:00 70 03/22/19 20:00 74 15 134/54 (80) 100 03/22/19 20:00 30 03/22/19 20:00 Mechanical Ventilator Mechanical Ventilator 03/22/19 19:30 77 18 30 03/22/19 19:00 98.5 79 16 130/49 (76) 99 03/22/19 18:08 85 23 30 03/22/19 18:00 79 24 166/68 (100) 100 03/22/19 17:00 78 27 150/55 (86) 100 03/22/19 16:42 78 25 30 General Appearance: no apparent distress, patient on isolation Neck: supple Cardiovascular: regular rhythm Respiratory/Chest: lungs clear Abdomen: normal bowel sounds, non tender, soft Extremities: no swelling Intake and Output 03/22/19 03/23/19 19:00 07:00 Intake Total 1480 ml 1350 ml Output Total 1255 ml 525 ml Balance 225 ml 825 ml Free Water 400 ml 300 ml IV Total 330 ml 330 ml Tube Feeding 720 ml 720 ml Other 30 ml Output Urine Total 1255 ml 525 ml Laboratory Tests Test 03/23/19 05:00 Sodium Level 148 MMOL/L (136-145) H Potassium Level 4.9 MMOL/L (3.5-5.1) Chloride Level 113 MMOL/L (98-107) H Carbon Dioxide Level 33 MMOL/L (21-32) H Anion Gap 3 mmol/L (5-15) L Blood Urea Nitrogen 17 mg/dL (7-18) Creatinine 0.6 MG/DL (0.55-1.30) Estimat Glomerular Filtration Rate mL/min (>60) Glucose Level 131 MG/DL (74-106) H Calcium Level 8.5 MG/DL (8.5-10.1) Microbiology Date/Time Source Procedure Growth Status 03/22/19 23:30 Sputum Induced Gram Stain - Final Resulted 03/22/19 23:30 Sputum Induced Sputum Culture Pending Resulted Allen Bliss MD March 23, 2019 16:12
--- NOTE | 2019-03-23 17:32 | Neurology Progress Note ---
Interim History Interim History ROS Limited/Unobtainable: Yes Complaints: AMS Events: This visit was performed on March 23, 2019 Interim History Patient weaned off vent and extubated today with mild lethargy on exam. Objective Physical Exam Last Vital Signs Date Time Temp Pulse Resp B/P (MAP) Pulse Ox O2 Delivery O2 Flow Rate FiO2 03/23/19 16:48 99 Nasal Cannula 3.0 32 03/23/19 16:00 81 03/23/19 16:00 98.6 18 161/64 (96) Laboratory Tests Test 03/23/19 05:00 Sodium Level 148 MMOL/L (136-145) H Potassium Level 4.9 MMOL/L (3.5-5.1) Chloride Level 113 MMOL/L (98-107) H Carbon Dioxide Level 33 MMOL/L (21-32) H Anion Gap 3 mmol/L (5-15) L Blood Urea Nitrogen 17 mg/dL (7-18) Creatinine 0.6 MG/DL (0.55-1.30) Estimat Glomerular Filtration Rate mL/min (>60) Glucose Level 131 MG/DL (74-106) H Calcium Level 8.5 MG/DL (8.5-10.1) General: well developed, well nourished Head: normocophalic, atraumatic Neck: no rigidity EENT: benign Neurologic Exam Mental Status: awake Cranial Nerve II: no papilledema Cranial Nerves III, IV, : PERRLA, EOMI Cranial Nerve VIII: normal hearing Cranial Nerve XII: tongue midline Motor System: other - Right sided hemiplegia with TF in leg and min withdrawal at shoulder / Left sided w/d and apparent full strength to noxious stimuli Sensory: other - Some indication of paresthesia requiring increased noxious stimuli on right side Gait: normal regular Objective Extubated today, no respiratory distress- she is more lethargic on exam today but essentially a all responses remain stable as patient is non verbal at baseline. She is now making meaningful eye contact and tracking with her eyes. As per her granddaughter, she is now approximately back to her baseline - which was tracking people with her eyes, moving/ turning her head, she could be sounds but no formal speech. 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 Right facial weakness of whole face, including eye. Possible sensory loss on right side due to need for increased noxious stimulus to induce response. Right side plegic, with slight movement proximally > distally. Left side w/d and UE now in restraints because exhibiting full strength Impression/Recommendations Problems: (1) Acute encephalopathy Assessment & Plan: Still not following commands. As per granddaughter - she does not do this at baseline She is closer to her baseline but lethargic today following weaning trials again. (2) Septic shock (3) Respiratory failure (4) Dementia (5) Altered level of consciousness (6) CVA, old, hemiparesis Assessment & Plan: CT Brain 03/09/19: Old left parietal and occipital infarct Moderate atrophy of the brain. 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 (7) Diabetes Status: stable, unchanged Diagnostic Impression MRI ordered to rule out acute stroke as cause of increased AMS and respiratory failure but unable to obtain at this time due to ventilatory status Wean Vent as able - failed trials x 2, now off sedation with increased lethargy on exam. Maintain Normoglycemia with ISS May start ASA HgB> 8 - dropping on CBC, track and trend Maintain normoglycemia with ISS Continue enteral feeding SBP< 140 Discussion with family regarding goals of care Recommendations Q 2 hour neuro obs Abx as needed Replete/ Correct Lytes as necessary Discuss goals of care with family Continue Phenytoin but no indication for increased dosage or addition of second line AED Prevent Delirium: PT EVal as soon as able for OOB in Chair Maintain sleep hygiene by making room dark at night and minimizing nighttime observations. Seroquel 25mg QD PRN for agitation- can be increased if necessary please avoid benzos, opioids, anticholinergic drugs if the goal of treatment is to wean- This was a critical care note. Critical care time of 40 minutes, was performed in order to assess and manage the high probability of imminent or life threatening deterioration to respiratory/neurologic function, with frequent reassessment and excludes all billable procedures. Ngozi Franklin N.P. March 23, 2019 17:32
--- NOTE | 2019-03-23 20:08 | Nephrology Progress Note ---
Assessment/Plan Problem List: (1) Systolic heart failure (2) Dyspnea (3) Respiratory failure (4) Respiratory distress (5) Septic shock (6) Diabetes (7) CVA, old, hemiparesis (8) Hypokalemia (9) COLLIN (acute kidney injury) Plan discontinue diuresis bumex dc , decrease water flushes observe Subjective ROS Limited/Unobtainable: Yes Objective Objective Last 24 Hour Vital Signs Date Time Temp Pulse Resp B/P (MAP) Pulse Ox O2 Delivery O2 Flow Rate FiO2 03/23/19 20:00 2.0 03/23/19 19:00 79 24 140/53 (82) 100 03/23/19 18:00 84 24 153/57 (89) 100 03/23/19 17:00 86 24 168/65 (99) 100 03/23/19 16:48 99 Nasal Cannula 3.0 32 03/23/19 16:00 2.0 03/23/19 16:00 Nasal Cannula 2.0 Nasal Cannula 2.0 Nasal Cannula 2.0 03/23/19 16:00 81 03/23/19 16:00 98.6 86 18 161/64 (96) 100 03/23/19 14:00 83 24 149/58 (88) 100 03/23/19 13:00 2.0 03/23/19 13:00 84 18 161/64 (96) 100 03/23/19 13:00 71 27 161/64 (96) 100 03/23/19 12:57 Nasal Cannula 4.0 36 03/23/19 12:00 30 03/23/19 12:00 Mechanical Ventilator Mechanical Ventilator 03/23/19 12:00 76 03/23/19 12:00 98.4 80 22 154/59 (90) 100 03/23/19 11:12 67 27 30 03/23/19 11:00 71 18 148/60 (89) 100 03/23/19 10:00 66 16 149/55 (86) 100 03/23/19 09:10 100 03/23/19 09:06 67 30 30 03/23/19 09:03 61 16 30 03/23/19 09:00 66 16 132/50 (77) 100 03/23/19 09:00 30 03/23/19 08:36 155/62 03/23/19 08:00 Mechanical Ventilator Mechanical Ventilator 03/23/19 08:00 64 03/23/19 08:00 30 03/23/19 08:00 64 16 155/62 (93) 100 03/23/19 07:00 98.6 66 24 149/64 (92) 100 03/23/19 06:57 47 16 30 03/23/19 06:00 58 18 100 03/23/19 05:00 59 18 126/45 (72) 100 03/23/19 04:38 61 18 30 03/23/19 04:00 Mechanical Ventilator Mechanical Ventilator 03/23/19 04:00 66 03/23/19 04:00 30 03/23/19 04:00 63 17 127/50 (75) 100 03/23/19 03:24 52 14 30 03/23/19 03:00 53 17 119/40 (66) 100 03/23/19 02:00 63 16 136/54 (81) 100 03/23/19 01:06 76 25 30 03/23/19 01:00 98.8 65 24 160/123 (135) 100 03/23/19 00:00 Mechanical Ventilator Mechanical Ventilator 03/23/19 00:00 30 03/23/19 00:00 63 03/23/19 00:00 68 22 160/57 (91) 100 03/22/19 23:25 60 25 30 03/22/19 23:00 64 22 151/58 (89) 100 03/22/19 22:09 70 20 30 03/22/19 22:00 71 23 169/66 (100) 100 03/22/19 21:00 71 18 165/59 (94) 100 Intake and Output 03/22/19 03/23/19 18:59 06:59 Intake Total 1480 ml 1250 ml Output Total 1260 ml 540 ml Balance 220 ml 710 ml Free Water 400 ml 200 ml IV Total 330 ml 330 ml Tube Feeding 720 ml 720 ml Other 30 ml Output Urine Total 1260 ml 540 ml Laboratory Tests 03/23/19 05:00: Sodium Level 148H, Potassium Level 4.9, Chloride Level 113H, Carbon Dioxide Level 33H, Anion Gap 3L, Blood Urea Nitrogen 17, Creatinine 0.6, Estimat Glomerular Filtration Rate , Glucose Level 131H, Calcium Level 8.5 Height (Feet): 5 Height (Inches): 8.00 Weight (Pounds): 170 General Appearance: lethargic EENT: normal ENT inspection Neck: normal alignment Cardiovascular: normal rate, regular rhythm Respiratory/Chest: rhonchi - bilaterally Abdomen: non tender, soft Extremities: trace edema Neurologic: disoriented Lamberto Álvarez MD March 23, 2019 20:08
[2019-03-23] MEDS: Dyna-Hex 2% Top Sol 2oz TOPIC SCH (20:32)
[2019-03-24] VITALS (24 sets, daily range): BP systolic 133–164; BP diastolic 46–76
[2019-03-24 05:23] LABS: EOSINOPHILS % (AUTO) 5.2 % (0.0-3.0); HEMATOCRIT 28.3 % (37.0-47.0); HEMOGLOBIN 9.2 G/DL (12.0-16.0); LYMPHOCYTES % (AUTO) 18.5 % (20.0-45.0); MEAN CORPUSCULAR VOLUME 104 FL (80-99); MONOCYTES % (AUTO) 5.3 % (1.0-10.0); PLATELET COUNT 264 K/UL (150-450); RED BLOOD COUNT 2.74 M/UL (4.20-5.40); RED CELL DISTRIBUTION WIDTH 14.2 % (11.6-14.8); WHITE BLOOD COUNT 8.4 K/UL (4.8-10.8)
[2019-03-24] MEDS: NovoLOG Insulin Flexpen SUBQ SCH ×3 (05:33→18:00)
[2019-03-24 05:38] LABS: ALANINE AMINOTRANSFERASE 13 U/L (12-78); ALBUMIN 1.8 G/DL (3.4-5.0); ALBUMIN/GLOBULIN RATIO 0.4 (1.0-2.7); ALKALINE PHOSPHATASE 99 U/L (46-116); ANION GAP 3 mmol/L (5-15); ASPARTATE AMINO TRANSFERASE 27 U/L (15-37); BILIRUBIN,TOTAL 0.2 MG/DL (0.2-1.0); BLOOD UREA NITROGEN 17 mg/dL (7-18); CALCIUM 7.8 MG/DL (8.5-10.1); CARBON DIOXIDE 34 MMOL/L (21-32); CHLORIDE 113 MMOL/L (98-107); CREATININE 0.5 MG/DL (0.55-1.30); POTASSIUM 5.4 MMOL/L (3.5-5.1); SODIUM 149 MMOL/L (136-145)
[2019-03-24] MEDS ORDERED: Bumetanide 2.5mg/10ml Inj IVP SCH (08:44)
[2019-03-24] MEDS: Phenytoin Susp 100mg/4ml GT SCH ×2 (08:59→21:18)
[2019-03-24] MEDS: Lisinopril 2.5mg tab GT SCH (08:59)
[2019-03-24] MEDS: Pantoprazole Inj IVP SCH (08:59)
--- NOTE | 2019-03-24 11:28 | Infectious Diseases Prog Note ---
Assessment/Plan Assessment/Plan ASSESSMENT/PLAN: 1. 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 Respiratory failure, on vent - weaning per pulmonary 3. Diabetes. 4. Hypertension. 5. Blood sugar and blood pressure treatment per primary for diabetes and hypertension. 6. Atrial fibrillation. 7. Heart failure. 8. G-tube. 9. Skin care protocol. 10. Cardiomegaly. 11. CAD and [place]. 12. Hyperlipidemia. 13. Seizure disorder. 14. GERD. 15. History of CVA. 16. Allergic to penicillin and sulfa, tolerates meropenem. 17. Social history is negative. 18. Family history is noncontributory. 19. MAR is noted. 20. Case discussed with Dr. Franks. 21. Continue treatment per primary consultants. Subjective Constitutional: Reports: other - extubated; Denies: fever HEENT: Reports: congestion - mild Respiratory: Reports: shortness of breath - mild Cardiovascular: Reports: other - no pressors Gastrointestinal/Abdominal: Denies: nausea, vomiting, diarrhea Genitourinary: Reports: other - + macias Neurologic: Reports: weakness, other - lethargic, poorly responsive Psychiatric: Reports: other - na Skin: Denies: rash Hematologic: Denies: bleeding Musculoskeletal: Reports: other - na Allergies: Coded Allergies: PENICILLINS (Verified Allergy, Unknown, 02/04/18) SULFA (SULFONAMIDE ANTIBIOTICS) (Verified Allergy, Unknown, 02/04/18) SULFACETAMIDE (Unverified Allergy, Unknown, 06/24/18) Objective Vital Signs Last 24 Hour Vital Signs Date Time Temp Pulse Resp B/P (MAP) Pulse Ox O2 Delivery O2 Flow Rate FiO2 03/24/19 08:59 181/93 03/24/19 08:00 Nasal Cannula 2.0 Nasal Cannula 2.0 Nasal Cannula 2.0 03/24/19 08:00 82 03/24/19 08:00 2.0 03/24/19 07:17 98 Nasal Cannula 3.0 32 03/24/19 07:00 81 21 143/58 (86) 100 03/24/19 06:00 78 27 157/66 (96) 100 03/24/19 05:00 86 30 161/76 (104) 100 03/24/19 04:00 2.0 03/24/19 04:00 Nasal Cannula 2.0 Nasal Cannula 2.0 Nasal Cannula 2.0 03/24/19 04:00 80 03/24/19 04:00 98.6 80 21 138/51 (80) 100 03/24/19 03:00 84 25 148/59 (88) 100 03/24/19 02:00 85 30 156/57 (90) 100 03/24/19 01:00 81 23 137/49 (78) 100 03/24/19 00:00 98.7 70 34 140/46 (77) 100 03/24/19 00:00 86 03/24/19 00:00 Nasal Cannula 2.0 Nasal Cannula 2.0 Nasal Cannula 2.0 03/23/19 23:00 80 30 151/80 (103) 100 03/23/19 22:14 84 28 148/59 (88) 100 03/23/19 21:00 84 32 157/55 (89) 100 03/23/19 20:26 99 Nasal Cannula 3.0 32 03/23/19 20:00 79 03/23/19 20:00 98.5 75 29 151/56 (87) 100 03/23/19 20:00 2.0 03/23/19 20:00 Nasal Cannula 2.0 Nasal Cannula 2.0 Nasal Cannula 2.0 03/23/19 19:00 79 24 140/53 (82) 100 03/23/19 18:00 84 24 153/57 (89) 100 03/23/19 17:00 86 24 168/65 (99) 100 03/23/19 16:48 99 Nasal Cannula 3.0 32 03/23/19 16:00 2.0 03/23/19 16:00 Nasal Cannula 2.0 Nasal Cannula 2.0 Nasal Cannula 2.0 03/23/19 16:00 81 03/23/19 16:00 98.6 86 18 161/64 (96) 100 03/23/19 14:00 83 24 149/58 (88) 100 03/23/19 13:00 2.0 03/23/19 13:00 84 18 161/64 (96) 100 03/23/19 13:00 71 27 161/64 (96) 100 03/23/19 12:57 Nasal Cannula 4.0 36 03/23/19 12:00 30 03/23/19 12:00 Mechanical Ventilator Mechanical Ventilator 03/23/19 12:00 76 03/23/19 12:00 98.4 80 22 154/59 (90) 100 Height (Feet): 5 Height (Inches): 8.00 Weight (Pounds): 170 General Appearance: no acute distress HEENT: normocephalic, atraumatic, anicteric Respiratory/Chest: crackles/rales, rhonchi - bilaterally Cardiovascular: normal rate, regular rhythm, no gallop/murmur, no JVD Abdomen: normal bowel sounds, soft, non tender, no organomegaly, non distended Genitourinary: other - + macias - urine slt cloudy Extremities: no cyanosis Skin: no rash Neurologic/Psychiatric: sharepoint admin II-XII grossly normal, motor weakness, other - lethargic and weak Lymphatic: no neck adenopathy Musculoskeletal: no effusion Objective Chest x-ray - 03/15 - Comparison: 03/12/2019 A single view chest radiograph was obtained. Findings: Endotracheal tube and right jugular line are stable. Mild pulmonary vascular congestion suspected. IMPRESSION: No change from the prior exam. Mild CHF suspected Chest x-ray - 03/17/19 - Comparison: 03/15/2019 A single view chest radiograph was obtained. Findings: Vascular congestion demonstrated. Tubes and lines are stable. Heart size is mildly enlarged and stable. Small right pleural effusion suspected. IMPRESSION: No change from the previous examination. Suspected CHF Chest x-ray - 03/22/19 - IMPRESSION: 1. Worsening small right pleural effusion. Similar small left pleural effusion. 2. Increased right lower lung atelectasis/airspace disease and similar left lung base opacity. Microbiology Date/Time Source Procedure Growth Status 03/09/19 14:10 Blood Blood Culture - Final Staphylococcus Sp Coag Neg Complete 03/22/19 23:30 Sputum Induced Gram Stain - Final Resulted 03/22/19 23:30 Sputum Culture - Preliminary Gram Negative Víctor Resulted 03/11/19 17:00 Indwelling Cath Urine Culture - Final Escherichia Coli - Esbl Complete 03/09/19 14:35 Rectum VRE Culture - Final NO VANCOMYCIN RESISTANT ENTEROCOCCUS ... Complete 03/09/19 14:35 Rectum - Final NO CARBAPENEM-RESISTANT ENTEROBACTERI... Complete Microbiology Date/Time Source Procedure Growth Status 03/22/19 23:30 Sputum Induced Gram Stain - Final Resulted 03/22/19 23:30 Sputum Culture - Preliminary Gram Negative Víctor Resulted Laboratory Tests Test 03/24/19 04:30 White Blood Count 8.4 K/UL (4.8-10.8) Red Blood Count 2.74 M/UL (4.20-5.40) L Hemoglobin 9.2 G/DL (12.0-16.0) L Hematocrit 28.3 % (37.0-47.0) L Mean Corpuscular Volume 104 FL (80-99) H Mean Corpuscular Hemoglobin 33.7 PG (27.0-31.0) H Mean Corpuscular Hemoglobin Concent 32.6 G/DL (32.0-36.0) Red Cell Distribution Width 14.2 % (11.6-14.8) Platelet Count 264 K/UL (150-450) Mean Platelet Volume 6.4 FL (6.5-10.1) L Neutrophils (%) (Auto) 70.0 % (45.0-75.0) Lymphocytes (%) (Auto) 18.5 % (20.0-45.0) L Monocytes (%) (Auto) 5.3 % (1.0-10.0) Eosinophils (%) (Auto) 5.2 % (0.0-3.0) H Basophils (%) (Auto) 1.0 % (0.0-2.0) Sodium Level 149 MMOL/L (136-145) H Potassium Level 5.4 MMOL/L (3.5-5.1) H Chloride Level 113 MMOL/L (98-107) H Carbon Dioxide Level 34 MMOL/L (21-32) H Anion Gap 3 mmol/L (5-15) L Blood Urea Nitrogen 17 mg/dL (7-18) Creatinine 0.5 MG/DL (0.55-1.30) L Estimat Glomerular Filtration Rate mL/min (>60) Glucose Level 151 MG/DL (74-106) H Calcium Level 7.8 MG/DL (8.5-10.1) L Total Bilirubin 0.2 MG/DL (0.2-1.0) Aspartate Amino Transf (AST/SGOT) 27 U/L (15-37) Alanine Aminotransferase (ALT/SGPT) 13 U/L (12-78) Alkaline Phosphatase 99 U/L (46-116) Total Protein 6.6 G/DL (6.4-8.2) Albumin 1.8 G/DL (3.4-5.0) L Globulin 4.8 g/dL Albumin/Globulin Ratio 0.4 (1.0-2.7) L Current Medications Medications (Trade) Dose Ordered Sig/Singh Route PRN Reason Start Time Stop Time Status Last Admin Dose Admin Acetaminophen (Tylenol) 650 mg Q4H PRN GT Mild Pain/Temp > 100.5 03/09/19 20:30 04/08/19 20:29 03/17/19 16:35 Bumetanide (Bumex) 1 mg BID IVP 03/24/19 12:30 04/23/19 12:29 Chlorhexidine Gluconate (Azra-Hex 2%) 1 applic DAILY@2000 TOPIC 03/10/19 20:00 04/09/19 19:59 03/23/19 20:32 Dextrose (Dextrose 50%) 25 ml Q30M PRN IV Hypoglycemia 03/09/19 21:00 04/08/19 20:59 Dextrose (Dextrose 50%) 50 ml Q30M PRN IV Hypoglycemia 03/09/19 21:00 04/08/19 20:59 Heparin Sodium/ Sodium Chloride (Heparin 1000 units/500ml Premix) 1,000 unit ONCE PRN IV picc line placement 03/23/19 13:15 03/24/19 13:14 Insulin Aspart (NovoLOG) EVERY 6 HOURS SUBQ 03/10/19 00:00 04/09/19 00:00 03/24/19 05:33 Lidocaine HCl (Xylocaine 1% 30ml) 30 ml ONCE PRN INJ picc line placement 03/23/19 13:15 03/24/19 13:14 Lisinopril (Zestril) 10 mg DAILY GT 03/25/19 09:00 04/19/19 08:59 Meropenem 1 gm/ Sodium Chloride 55 ml @ 110 mls/hr Q12HR@0000,1200 IVPB 03/21/19 00:00 03/25/19 23:59 03/23/19 23:28 Pantoprazole (Protonix) 40 mg DAILY IVP 03/10/19 09:00 04/09/19 08:59 03/24/19 08:59 Phenytoin (Dilantin) 125 mg Q12HR GT 03/09/19 21:00 04/08/19 20:59 03/24/19 08:59 Vancomycin HCl (Vanco rx to dose) 1 ea DAILY PRN MISC Per rx protocol 03/18/19 14:41 04/17/19 14:40 Vancomycin HCl 750 mg/Sodium Chloride 275 ml @ 183.333 mls/hr Q12H IVPB 03/20/19 12:00 03/25/19 23:59 03/23/19 23:28 Prashanth Osborne MD March 24, 2019 11:28
[2019-03-24] MEDS ORDERED: Amikacin Rx to dose MISC PRN (11:30)
--- NOTE | 2019-03-24 11:52 | Diagnostic Imaging Report ---
Indication: Dyspnea Technique: One view of the chest Comparison: 03/22/2019 Findings: Interim removal of previously demonstrated endotracheal tube. Right jugular central venous catheter remains in good position. Bilateral right greater than left pleural effusions persist. Mild interstitial congestion persists. The heart is borderline enlarged. Impression: Interim endotracheal extubation Little change otherwise, over 2 days
[2019-03-24] MEDS: Vancomycin 750 MG in NS 275 ML IVPB SCH ×2 (12:00→23:59)
[2019-03-24] MEDS: Meropenem 1 GM in NS 55 ML IVPB SCH (12:00)
--- NOTE | 2019-03-24 12:56 | Pulmonology Progress Note ---
Assessment/Plan Assessment/Plan 1. Acute respiratory failure, improved 2. Severe dehydration with shock. 3. Severe hypernatremia. 4. Multi-infarct dementia. 5. Possible acute myocardial infarction. 6. History of heart failure. 7. History of atrial fibrillation. 8. Gastric tube with dysphagia. 9. History of chronic obstructive pulmonary disease. 10. History of seizures with therapeutic Dilantin level. 11. History of hypertension. 12. Hyperlipidemia. 13. Diabetes. 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 some distress today since extubation CXR w CHF MRI brain pdg disc w RN at bedside increased diuretic Na high; needs water disc w renal and cardiology Subjective ROS Limited/Unobtainable: Yes Allergies: Coded Allergies: PENICILLINS (Verified Allergy, Unknown, 02/04/18) SULFA (SULFONAMIDE ANTIBIOTICS) (Verified Allergy, Unknown, 02/04/18) SULFACETAMIDE (Unverified Allergy, Unknown, 06/24/18) Objective Last 24 Hour Vital Signs Date Time Temp Pulse Resp B/P (MAP) Pulse Ox O2 Delivery O2 Flow Rate FiO2 03/24/19 12:00 2.0 03/24/19 12:00 Nasal Cannula 2.0 Nasal Cannula 2.0 Nasal Cannula 2.0 03/24/19 08:59 181/93 03/24/19 08:00 Nasal Cannula 2.0 Nasal Cannula 2.0 Nasal Cannula 2.0 03/24/19 08:00 82 03/24/19 08:00 2.0 03/24/19 07:17 98 Nasal Cannula 3.0 32 03/24/19 07:00 81 21 143/58 (86) 100 03/24/19 06:00 78 27 157/66 (96) 100 03/24/19 05:00 86 30 161/76 (104) 100 03/24/19 04:00 2.0 03/24/19 04:00 Nasal Cannula 2.0 Nasal Cannula 2.0 Nasal Cannula 2.0 03/24/19 04:00 80 03/24/19 04:00 98.6 80 21 138/51 (80) 100 03/24/19 03:00 84 25 148/59 (88) 100 03/24/19 02:00 85 30 156/57 (90) 100 03/24/19 01:00 81 23 137/49 (78) 100 03/24/19 00:00 98.7 70 34 140/46 (77) 100 03/24/19 00:00 86 03/24/19 00:00 Nasal Cannula 2.0 Nasal Cannula 2.0 Nasal Cannula 2.0 03/23/19 23:00 80 30 151/80 (103) 100 03/23/19 22:14 84 28 148/59 (88) 100 03/23/19 21:00 84 32 157/55 (89) 100 03/23/19 20:26 99 Nasal Cannula 3.0 32 03/23/19 20:00 79 03/23/19 20:00 98.5 75 29 151/56 (87) 100 03/23/19 20:00 2.0 03/23/19 20:00 Nasal Cannula 2.0 Nasal Cannula 2.0 Nasal Cannula 2.0 03/23/19 19:00 79 24 140/53 (82) 100 03/23/19 18:00 84 24 153/57 (89) 100 03/23/19 17:00 86 24 168/65 (99) 100 03/23/19 16:48 99 Nasal Cannula 3.0 32 03/23/19 16:00 2.0 03/23/19 16:00 Nasal Cannula 2.0 Nasal Cannula 2.0 Nasal Cannula 2.0 03/23/19 16:00 81 03/23/19 16:00 98.6 86 18 161/64 (96) 100 03/23/19 14:00 83 24 149/58 (88) 100 03/23/19 13:00 2.0 03/23/19 13:00 84 18 161/64 (96) 100 03/23/19 13:00 71 27 161/64 (96) 100 03/23/19 12:57 Nasal Cannula 4.0 36 Intake and Output 03/23/19 03/24/19 19:00 07:00 Intake Total 941.666 ml 1250.0 ml Output Total 2720 ml 745 ml Balance -1778.334 ml 505.0 ml Free Water 100 ml 200 ml IV Total 421.666 ml 330.0 ml Tube Feeding 420 ml 720 ml Output Urine Total 2720 ml 745 ml # Bowel Movements 1 2 Objective GT General Appearance: other - mild resp distress HEENT: atraumatic Respiratory/Chest: respiratory distress - mild, decreased breath sounds, accessory muscle use Cardiovascular: normal rate Microbiology Date/Time Source Procedure Growth Status 03/22/19 23:30 Sputum Induced Gram Stain - Final Resulted 03/22/19 23:30 Sputum Culture - Preliminary Gram Negative Víctor Resulted Laboratory Tests 03/24/19 04:30: White Blood Count 8.4, Red Blood Count 2.74L, Hemoglobin 9.2L, Hematocrit 28.3L , Mean Corpuscular Volume 104H, Mean Corpuscular Hemoglobin 33.7H, Mean Corpuscular Hemoglobin Concent 32.6, Red Cell Distribution Width 14.2, Platelet Count 264, Mean Platelet Volume 6.4L, Neutrophils (%) (Auto) 70.0, Lymphocytes ( %) (Auto) 18.5L, Monocytes (%) (Auto) 5.3, Eosinophils (%) (Auto) 5.2H, Basophils (%) (Auto) 1.0, Sodium Level 149H, Potassium Level 5.4H, Chloride Level 113H, Carbon Dioxide Level 34H, Anion Gap 3L, Blood Urea Nitrogen 17, Creatinine 0.5L, Estimat Glomerular Filtration Rate , Glucose Level 151H, Calcium Level 7.8L, Total Bilirubin 0.2, Aspartate Amino Transf (AST/SGOT) 27, Alanine Aminotransferase (ALT/SGPT) 13, Alkaline Phosphatase 99, Total Protein 6.6, Albumin 1.8L, Globulin 4.8, Albumin/Globulin Ratio 0.4L Current Medications Medications (Trade) Dose Ordered Sig/Singh Route PRN Reason Start Time Stop Time Status Last Admin Dose Admin Acetaminophen (Tylenol) 650 mg Q4H PRN GT Mild Pain/Temp > 100.5 03/09/19 20:30 04/08/19 20:29 03/17/19 16:35 Amikacin Protocol (Amikacin pharmacy to dose) 1 ea DAILY PRN MISC Per rx protocol 03/24/19 11:30 04/23/19 11:29 Amikacin Sulfate 750 mg/Sodium Chloride 113 ml @ 113 mls/hr ONCE IV 03/24/19 13:00 03/24/19 15:00 Bumetanide (Bumex) 1 mg BID IVP 03/24/19 12:30 04/23/19 12:29 Chlorhexidine Gluconate (Azra-Hex 2%) 1 applic DAILY@2000 TOPIC 03/10/19 20:00 04/09/19 19:59 03/23/19 20:32 Dextrose (Dextrose 50%) 25 ml Q30M PRN IV Hypoglycemia 03/09/19 21:00 04/08/19 20:59 Dextrose (Dextrose 50%) 50 ml Q30M PRN IV Hypoglycemia 03/09/19 21:00 04/08/19 20:59 Heparin Sodium/ Sodium Chloride (Heparin 1000 units/500ml Premix) 1,000 unit ONCE PRN IV picc line placement 03/23/19 13:15 03/24/19 13:14 Insulin Aspart (NovoLOG) EVERY 6 HOURS SUBQ 03/10/19 00:00 04/09/19 00:00 03/24/19 05:33 Lidocaine HCl (Xylocaine 1% 30ml) 30 ml ONCE PRN INJ picc line placement 03/23/19 13:15 03/24/19 13:14 Lisinopril (Zestril) 10 mg DAILY GT 03/25/19 09:00 04/19/19 08:59 Meropenem 1 gm/ Sodium Chloride 55 ml @ 110 mls/hr Q12HR@0000,1200 IVPB 03/24/19 12:00 03/29/19 11:59 Pantoprazole (Protonix) 40 mg DAILY IVP 03/10/19 09:00 04/09/19 08:59 03/24/19 08:59 Phenytoin (Dilantin) 125 mg Q12HR GT 03/09/19 21:00 04/08/19 20:59 03/24/19 08:59 Vancomycin HCl (Vanco rx to dose) 1 ea DAILY PRN MISC Per rx protocol 03/24/19 11:30 04/23/19 11:29 Vancomycin HCl 750 mg/Sodium Chloride 275 ml @ 183.333 mls/hr Q12H IVPB 03/24/19 12:00 03/29/19 23:59 Fernando Franks MD March 24, 2019 12:56
[2019-03-24] MEDS ORDERED: Amikacin 750 MG in NS 110 ML IV SCH (13:00)
--- NOTE | 2019-03-24 13:25 | Nephrology Progress Note ---
Assessment/Plan Problem List: (1) Systolic heart failure (2) Dyspnea (3) Respiratory failure (4) Respiratory distress (5) Septic shock (6) Diabetes (7) CVA, old, hemiparesis (8) Hypokalemia (9) COLLIN (acute kidney injury) Plan restarted diuresisdiuresis bumex dc , increase water flushes observe Subjective ROS Limited/Unobtainable: Yes Objective Objective Last 24 Hour Vital Signs Date Time Temp Pulse Resp B/P (MAP) Pulse Ox O2 Delivery O2 Flow Rate FiO2 03/24/19 12:00 98.7 81 23 149/58 (88) 100 03/24/19 12:00 2.0 03/24/19 12:00 Nasal Cannula 2.0 Nasal Cannula 2.0 Nasal Cannula 2.0 03/24/19 12:00 83 03/24/19 11:00 75 22 133/51 (78) 100 03/24/19 10:00 78 22 136/51 (79) 100 03/24/19 09:00 81 24 140/54 (82) 100 03/24/19 08:59 181/93 03/24/19 08:00 Nasal Cannula 2.0 Nasal Cannula 2.0 Nasal Cannula 2.0 03/24/19 08:00 98.8 80 21 155/53 (87) 100 03/24/19 08:00 82 03/24/19 08:00 2.0 03/24/19 07:17 98 Nasal Cannula 3.0 32 03/24/19 07:00 81 21 143/58 (86) 100 03/24/19 06:00 78 27 157/66 (96) 100 03/24/19 05:00 86 30 161/76 (104) 100 03/24/19 04:00 2.0 03/24/19 04:00 Nasal Cannula 2.0 Nasal Cannula 2.0 Nasal Cannula 2.0 03/24/19 04:00 80 03/24/19 04:00 98.6 80 21 138/51 (80) 100 03/24/19 03:00 84 25 148/59 (88) 100 03/24/19 02:00 85 30 156/57 (90) 100 03/24/19 01:00 81 23 137/49 (78) 100 03/24/19 00:00 98.7 70 34 140/46 (77) 100 03/24/19 00:00 86 03/24/19 00:00 Nasal Cannula 2.0 Nasal Cannula 2.0 Nasal Cannula 2.0 03/23/19 23:00 80 30 151/80 (103) 100 03/23/19 22:14 84 28 148/59 (88) 100 03/23/19 21:00 84 32 157/55 (89) 100 03/23/19 20:26 99 Nasal Cannula 3.0 32 03/23/19 20:00 79 03/23/19 20:00 98.5 75 29 151/56 (87) 100 03/23/19 20:00 2.0 03/23/19 20:00 Nasal Cannula 2.0 Nasal Cannula 2.0 Nasal Cannula 2.0 03/23/19 19:00 79 24 140/53 (82) 100 03/23/19 18:00 84 24 153/57 (89) 100 03/23/19 17:00 86 24 168/65 (99) 100 03/23/19 16:48 99 Nasal Cannula 3.0 32 03/23/19 16:00 2.0 03/23/19 16:00 Nasal Cannula 2.0 Nasal Cannula 2.0 Nasal Cannula 2.0 03/23/19 16:00 81 03/23/19 16:00 98.6 86 18 161/64 (96) 100 03/23/19 14:00 83 24 149/58 (88) 100 Intake and Output 03/23/19 03/24/19 19:00 07:00 Intake Total 941.666 ml 1250.0 ml Output Total 2720 ml 745 ml Balance -1778.334 ml 505.0 ml Free Water 100 ml 200 ml IV Total 421.666 ml 330.0 ml Tube Feeding 420 ml 720 ml Output Urine Total 2720 ml 745 ml # Bowel Movements 1 2 Laboratory Tests 03/24/19 04:30: White Blood Count 8.4, Red Blood Count 2.74L, Hemoglobin 9.2L, Hematocrit 28.3L , Mean Corpuscular Volume 104H, Mean Corpuscular Hemoglobin 33.7H, Mean Corpuscular Hemoglobin Concent 32.6, Red Cell Distribution Width 14.2, Platelet Count 264, Mean Platelet Volume 6.4L, Neutrophils (%) (Auto) 70.0, Lymphocytes ( %) (Auto) 18.5L, Monocytes (%) (Auto) 5.3, Eosinophils (%) (Auto) 5.2H, Basophils (%) (Auto) 1.0, Sodium Level 149H, Potassium Level 5.4H, Chloride Level 113H, Carbon Dioxide Level 34H, Anion Gap 3L, Blood Urea Nitrogen 17, Creatinine 0.5L, Estimat Glomerular Filtration Rate , Glucose Level 151H, Calcium Level 7.8L, Total Bilirubin 0.2, Aspartate Amino Transf (AST/SGOT) 27, Alanine Aminotransferase (ALT/SGPT) 13, Alkaline Phosphatase 99, Total Protein 6.6, Albumin 1.8L, Globulin 4.8, Albumin/Globulin Ratio 0.4L Height (Feet): 5 Height (Inches): 8.00 Weight (Pounds): 170 General Appearance: lethargic EENT: normal ENT inspection Neck: normal alignment Cardiovascular: regularly irregular Respiratory/Chest: rhonchi - bilaterally Abdomen: non tender, soft Extremities: moderate edema Neurologic: disoriented Lamberto Álvarez MD March 24, 2019 13:25
[2019-03-24] MEDS ORDERED: NS 275ml ONE (13:47)
[2019-03-24] MEDS ORDERED: NS 500ML ONE (13:47)
[2019-03-24] MEDS ORDERED: Sterile Water Irrig 1000ml IRRIG ONE (13:47)
[2019-03-24] MEDS ORDERED: Tubing IV Secondary IV ONE (13:47)
[2019-03-24] MEDS: Bumetanide 2.5mg/10ml Inj IVP SCH ×2 (14:00→18:00)
--- NOTE | 2019-03-24 15:44 | Diagnostic Imaging Report ---
Indications: Needs long-term IV access Technique: Procedure performed at bedside. Procedural timeout performed. Ultrasound confirms patent compressible left basilic vein. Total sterile technique, including sterile probe cover and sterile gel, sterile gloves, hand hygiene, hat, mask,, sterile gown, large sterile drape, and preparation with 2% chlorhexidine utilized. Local anesthesia with 1% lidocaine. Under real-time ultrasound guidance, puncture basilic vein using 21-gauge needle, passage 0.018 guidewire, exchange for 4 Indonesian peel-away sheath. 4 Indonesian Bard dual-lumen power PICC cut to 45 cm. It was inserted through the peel-away sheath. Peel-away sheath and guidewire removed. Catheter fixed to the skin. Both catheter ports aspirated and flushed. Patient tolerated procedure well, without immediate complication. Followup chest x-ray obtained, documents catheter tip position at the cavoatrial junction Impression: Successful bedside placement of left arm PICC under sonographic guidance, as described above.
--- NOTE | 2019-03-24 19:50 | Cardiology Progress Note ---
Assessment/Plan Assessment/Plan 1. Hypernatremia free water deficit 2. Likely demand ischemia 3. Metabolic alkalosis. 4. altered mentation secondary to above. 5. Anemia, mild. 6. History of seizures. 7. Diabetes history. 8. Hypertension history. 9. hs of diastolic failure 10.New LV systolic dysfunction ? 11. bactermia 12 edema 03/10 echo report noted some echo views were reviewed may not have as bad an lv function as reported atlhgouh the images are not typical stress induced cm may be in the differential on iv abx hemodynamic are stable tele monitor sinus on iv abx keep on diuretic may need free water and diuretic at the same time will leave to [facility] d/w dr mcdonald Subjective ROS Limited/Unobtainable: Yes Objective Last 24 Hour Vital Signs Date Time Temp Pulse Resp B/P (MAP) Pulse Ox O2 Delivery O2 Flow Rate FiO2 03/24/19 19:00 84 21 144/68 (93) 100 03/24/19 18:00 80 21 140/65 (90) 100 03/24/19 17:00 80 20 156/68 (97) 100 03/24/19 16:00 Nasal Cannula 2.0 Nasal Cannula 2.0 Nasal Cannula 2.0 03/24/19 16:00 2.0 03/24/19 16:00 78 03/24/19 16:00 98.7 88 20 144/60 (88) 100 03/24/19 15:00 82 20 152/70 (97) 100 03/24/19 14:00 78 22 143/65 (91) 100 03/24/19 13:00 77 22 140/60 (86) 100 03/24/19 12:00 98.7 81 23 149/58 (88) 100 03/24/19 12:00 2.0 03/24/19 12:00 Nasal Cannula 2.0 Nasal Cannula 2.0 Nasal Cannula 2.0 03/24/19 12:00 83 03/24/19 11:00 75 22 133/51 (78) 100 03/24/19 10:00 78 22 136/51 (79) 100 03/24/19 09:00 81 24 140/54 (82) 100 03/24/19 08:59 181/93 03/24/19 08:00 Nasal Cannula 2.0 Nasal Cannula 2.0 Nasal Cannula 2.0 03/24/19 08:00 98.8 80 21 155/53 (87) 100 03/24/19 08:00 82 03/24/19 08:00 2.0 03/24/19 07:17 98 Nasal Cannula 3.0 32 03/24/19 07:00 81 21 143/58 (86) 100 03/24/19 06:00 78 27 157/66 (96) 100 03/24/19 05:00 86 30 161/76 (104) 100 03/24/19 04:00 2.0 03/24/19 04:00 Nasal Cannula 2.0 Nasal Cannula 2.0 Nasal Cannula 2.0 03/24/19 04:00 80 03/24/19 04:00 98.6 80 21 138/51 (80) 100 03/24/19 03:00 84 25 148/59 (88) 100 03/24/19 02:00 85 30 156/57 (90) 100 03/24/19 01:00 81 23 137/49 (78) 100 03/24/19 00:00 98.7 70 34 140/46 (77) 100 03/24/19 00:00 86 03/24/19 00:00 Nasal Cannula 2.0 Nasal Cannula 2.0 Nasal Cannula 2.0 03/23/19 23:00 80 30 151/80 (103) 100 03/23/19 22:14 84 28 148/59 (88) 100 03/23/19 21:00 84 32 157/55 (89) 100 03/23/19 20:26 99 Nasal Cannula 3.0 32 03/23/19 20:00 79 03/23/19 20:00 98.5 75 29 151/56 (87) 100 03/23/19 20:00 2.0 03/23/19 20:00 Nasal Cannula 2.0 Nasal Cannula 2.0 Nasal Cannula 2.0 General Appearance: no apparent distress, alert Cardiovascular: normal rate Respiratory/Chest: decreased breath sounds Abdomen: normal bowel sounds, non tender, soft Extremities: no swelling Intake and Output 03/23/19 03/24/19 18:59 06:59 Intake Total 1041.666 ml 1250.0 ml Output Total 2710 ml 740 ml Balance -1668.334 ml 510.0 ml Free Water 200 ml 200 ml IV Total 421.666 ml 330.0 ml Tube Feeding 420 ml 720 ml Output Urine Total 2710 ml 740 ml # Bowel Movements 1 2 Laboratory Tests Test 03/24/19 04:30 White Blood Count 8.4 K/UL (4.8-10.8) Red Blood Count 2.74 M/UL (4.20-5.40) L Hemoglobin 9.2 G/DL (12.0-16.0) L Hematocrit 28.3 % (37.0-47.0) L Mean Corpuscular Volume 104 FL (80-99) H Mean Corpuscular Hemoglobin 33.7 PG (27.0-31.0) H Mean Corpuscular Hemoglobin Concent 32.6 G/DL (32.0-36.0) Red Cell Distribution Width 14.2 % (11.6-14.8) Platelet Count 264 K/UL (150-450) Mean Platelet Volume 6.4 FL (6.5-10.1) L Neutrophils (%) (Auto) 70.0 % (45.0-75.0) Lymphocytes (%) (Auto) 18.5 % (20.0-45.0) L Monocytes (%) (Auto) 5.3 % (1.0-10.0) Eosinophils (%) (Auto) 5.2 % (0.0-3.0) H Basophils (%) (Auto) 1.0 % (0.0-2.0) Sodium Level 149 MMOL/L (136-145) H Potassium Level 5.4 MMOL/L (3.5-5.1) H Chloride Level 113 MMOL/L (98-107) H Carbon Dioxide Level 34 MMOL/L (21-32) H Anion Gap 3 mmol/L (5-15) L Blood Urea Nitrogen 17 mg/dL (7-18) Creatinine 0.5 MG/DL (0.55-1.30) L Estimat Glomerular Filtration Rate mL/min (>60) Glucose Level 151 MG/DL (74-106) H Calcium Level 7.8 MG/DL (8.5-10.1) L Total Bilirubin 0.2 MG/DL (0.2-1.0) Aspartate Amino Transf (AST/SGOT) 27 U/L (15-37) Alanine Aminotransferase (ALT/SGPT) 13 U/L (12-78) Alkaline Phosphatase 99 U/L (46-116) Total Protein 6.6 G/DL (6.4-8.2) Albumin 1.8 G/DL (3.4-5.0) L Globulin 4.8 g/dL Albumin/Globulin Ratio 0.4 (1.0-2.7) L Microbiology Date/Time Source Procedure Growth Status 03/22/19 23:30 Sputum Induced Gram Stain - Final Resulted 03/22/19 23:30 Sputum Culture - Preliminary Gram Negative Víctor Resulted Allen Bliss MD March 24, 2019 19:50
[2019-03-24] MEDS: Dyna-Hex 2% Top Sol 2oz TOPIC SCH (20:02)
--- NOTE | 2019-03-24 23:59 | Neurology Progress Note ---
Interim History Interim History ROS Limited/Unobtainable: Yes Complaints: AMS Events: This visit was performed on March 24, [address] Melecio Tavarez. Interim History Has been extubated following successful vent weaning, currently at baseline MS in ICU off vent on room air Objective Physical Exam Last Vital Signs Date Time Temp Pulse Resp B/P (MAP) Pulse Ox O2 Delivery O2 Flow Rate FiO2 03/24/19 22:00 79 22 155/59 (91) 100 03/24/19 20:00 98.5 03/24/19 20:00 Nasal Cannula 2.0 Nasal Cannula 2.0 Nasal Cannula 2.0 03/24/19 19:54 28 Laboratory Tests Test 03/24/19 04:30 White Blood Count 8.4 K/UL (4.8-10.8) Red Blood Count 2.74 M/UL (4.20-5.40) L Hemoglobin 9.2 G/DL (12.0-16.0) L Hematocrit 28.3 % (37.0-47.0) L Mean Corpuscular Volume 104 FL (80-99) H Mean Corpuscular Hemoglobin 33.7 PG (27.0-31.0) H Mean Corpuscular Hemoglobin Concent 32.6 G/DL (32.0-36.0) Red Cell Distribution Width 14.2 % (11.6-14.8) Platelet Count 264 K/UL (150-450) Mean Platelet Volume 6.4 FL (6.5-10.1) L Neutrophils (%) (Auto) 70.0 % (45.0-75.0) Lymphocytes (%) (Auto) 18.5 % (20.0-45.0) L Monocytes (%) (Auto) 5.3 % (1.0-10.0) Eosinophils (%) (Auto) 5.2 % (0.0-3.0) H Basophils (%) (Auto) 1.0 % (0.0-2.0) Sodium Level 149 MMOL/L (136-145) H Potassium Level 5.4 MMOL/L (3.5-5.1) H Chloride Level 113 MMOL/L (98-107) H Carbon Dioxide Level 34 MMOL/L (21-32) H Anion Gap 3 mmol/L (5-15) L Blood Urea Nitrogen 17 mg/dL (7-18) Creatinine 0.5 MG/DL (0.55-1.30) L Estimat Glomerular Filtration Rate mL/min (>60) Glucose Level 151 MG/DL (74-106) H Calcium Level 7.8 MG/DL (8.5-10.1) L Total Bilirubin 0.2 MG/DL (0.2-1.0) Aspartate Amino Transf (AST/SGOT) 27 U/L (15-37) Alanine Aminotransferase (ALT/SGPT) 13 U/L (12-78) Alkaline Phosphatase 99 U/L (46-116) Total Protein 6.6 G/DL (6.4-8.2) Albumin 1.8 G/DL (3.4-5.0) L Globulin 4.8 g/dL Albumin/Globulin Ratio 0.4 (1.0-2.7) L General: well developed, well nourished Head: normocophalic, atraumatic Neck: no rigidity EENT: benign Neurologic Exam Mental Status: awake Cranial Nerve II: no papilledema Cranial Nerves III, IV, : PERRLA, EOMI Cranial Nerve VIII: normal hearing Cranial Nerve XII: tongue midline Motor System: other - Right sided hemiplegia with TF in leg and min withdrawal at shoulder / Left sided w/d and apparent full strength to noxious stimuli Sensory: other - Some indication of paresthesia requiring increased noxious stimuli on right side Gait: normal regular Objective Extubated yesterday, no respiratory distress- she is back to baseline MS - alert , tracking, non verbal. She is now making meaningful eye contact and tracking with her eyes. As per her granddaughter, she is now approximately back to her baseline - which was tracking people with her eyes, moving/ turning her head, she could be sounds but no formal speech. 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 Right facial weakness of whole face, including eye. Possible sensory loss on right side due to need for increased noxious stimulus to induce response. Right side plegic, with slight movement proximally > distally. Left side w/d and UE now in restraints because exhibiting full strength Impression/Recommendations Problems: (1) Acute encephalopathy Assessment & Plan: Still not following commands. As per granddaughter - she does not do this at baseline (2) Septic shock (3) Respiratory failure (4) Dementia (5) Altered level of consciousness (6) CVA, old, hemiparesis Assessment & Plan: CT Brain 03/09/19: Old left parietal and occipital infarct Moderate atrophy of the brain. 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 (7) Diabetes Status: stable, progressing, unchanged Diagnostic Impression Can consider MRI of brain now that extubated but this is not a priority study as patient is back to Baseline. Maintain Normoglycemia with ISS May start ASA HgB> 8 - dropping on CBC, track and trend Maintain normoglycemia with ISS Continue enteral feeding SBP< 140 Discussion with family regarding goals of care Recommendations Q 2 hour neuro obs Abx as needed Replete/ Correct Lytes as necessary Discuss goals of care with family Continue Phenytoin but no indication for increased dosage or addition of second line AED Prevent Delirium: PT EVal as soon as able for OOB in Chair Maintain sleep hygiene by making room dark at night and minimizing nighttime observations. Seroquel 25mg QD PRN for agitation- can be increased if necessary please avoid benzos, opioids, anticholinergic drugs if the goal of treatment is to wean- This was a critical care note. Critical care time of 40 minutes, was performed in order to assess and manage the high probability of imminent or life threatening deterioration to respiratory/neurologic function, with frequent reassessment and excludes all billable procedures. Ngozi Franklin N.P. March 24, 2019 23:59
[2019-03-25] VITALS (24 sets, daily range): BP systolic 107–161; BP diastolic 7–82
[2019-03-25] MEDS: NovoLOG Insulin Flexpen SUBQ SCH ×5 (00:03→23:55)
[2019-03-25] MEDS: Meropenem 1 GM in NS 55 ML IVPB SCH (00:07)
[2019-03-25 05:35] LABS: BASOPHILS % (AUTO) 0.7 % (0.0-2.0); EOSINOPHILS % (AUTO) 4.2 % (0.0-3.0); HEMATOCRIT 28.1 % (37.0-47.0); LYMPHOCYTES % (AUTO) 19.4 % (20.0-45.0); MEAN CORPUSCULAR VOLUME 104 FL (80-99); MONOCYTES % (AUTO) 6.4 % (1.0-10.0); NEUTROPHILS % (AUTO) 69.2 % (45.0-75.0); PLATELET COUNT 231 K/UL (150-450); RED BLOOD COUNT 2.71 M/UL (4.20-5.40); RED CELL DISTRIBUTION WIDTH 14.5 % (11.6-14.8); WHITE BLOOD COUNT 7.9 K/UL (4.8-10.8)
[2019-03-25 06:07] LABS: ALANINE AMINOTRANSFERASE 14 U/L (12-78); ALBUMIN 1.8 G/DL (3.4-5.0); ALBUMIN/GLOBULIN RATIO 0.4 (1.0-2.7); ALKALINE PHOSPHATASE 98 U/L (46-116); ANION GAP 1 mmol/L (5-15); ASPARTATE AMINO TRANSFERASE 28 U/L (15-37); BILIRUBIN,TOTAL 0.2 MG/DL (0.2-1.0); BLOOD UREA NITROGEN 16 mg/dL (7-18); CALCIUM 8.7 MG/DL (8.5-10.1); CARBON DIOXIDE 37 MMOL/L (21-32); CHLORIDE 111 MMOL/L (98-107); CREATININE 0.6 MG/DL (0.55-1.30); POTASSIUM 3.7 MMOL/L (3.5-5.1); SODIUM 149 MMOL/L (136-145)
[2019-03-25] MEDS: Bumetanide 2.5mg/10ml Inj IVP SCH ×2 (09:31→17:24)
[2019-03-25] MEDS: Phenytoin Susp 100mg/4ml GT SCH ×2 (09:31→20:31)
[2019-03-25] MEDS: Lisinopril 10mg tab GT SCH (09:31)
--- NOTE | 2019-03-25 10:30 | Nephrology Progress Note ---
Assessment/Plan Problem List: (1) Systolic heart failure (2) Dyspnea (3) Respiratory failure (4) Respiratory distress (5) Septic shock (6) Diabetes (7) CVA, old, hemiparesis (8) Hypokalemia (9) COLLIN (acute kidney injury) Plan restarted diuresis bumex , increase water flushes observe Na 149 d5w 50/hr Subjective ROS Limited/Unobtainable: Yes Objective Objective Last 24 Hour Vital Signs Date Time Temp Pulse Resp B/P (MAP) Pulse Ox O2 Delivery O2 Flow Rate FiO2 03/25/19 09:31 166/89 03/25/19 09:00 75 25 115/55 (75) 100 03/25/19 08:00 Nasal Cannula 2.0 Nasal Cannula 2.0 Nasal Cannula 2.0 03/25/19 08:00 84 03/25/19 08:00 98.7 72 25 120/64 (82) 100 03/25/19 07:06 99 Nasal Cannula 2.0 28 03/25/19 07:00 69 25 113/59 (77) 100 03/25/19 06:00 78 25 131/55 (80) 100 03/25/19 05:00 73 25 116/47 (70) 100 03/25/19 04:00 80 03/25/19 04:00 Nasal Cannula 2.0 Nasal Cannula 2.0 Nasal Cannula 2.0 03/25/19 04:00 98.5 77 22 138/56 (83) 100 03/25/19 03:00 86 25 161/64 (96) 03/25/19 02:00 78 20 148/51 (83) 100 03/25/19 01:00 73 22 125/55 (78) 03/25/19 00:00 98.3 77 28 155/63 (93) 100 03/25/19 00:00 Nasal Cannula 2.0 Nasal Cannula 2.0 Nasal Cannula 2.0 03/25/19 00:00 82 03/24/19 23:00 79 22 152/73 (99) 100 03/24/19 22:00 79 22 155/59 (91) 100 03/24/19 21:00 80 26 146/61 (89) 100 03/24/19 20:00 98.5 82 29 164/68 (100) 100 03/24/19 20:00 Nasal Cannula 2.0 Nasal Cannula 2.0 Nasal Cannula 2.0 03/24/19 20:00 81 03/24/19 19:54 100 Nasal Cannula 2.0 28 03/24/19 19:00 84 21 144/68 (93) 100 03/24/19 18:00 80 21 140/65 (90) 100 03/24/19 17:00 80 20 156/68 (97) 100 03/24/19 16:00 Nasal Cannula 2.0 Nasal Cannula 2.0 Nasal Cannula 2.0 03/24/19 16:00 2.0 03/24/19 16:00 78 03/24/19 16:00 98.7 88 20 144/60 (88) 100 03/24/19 15:00 82 20 152/70 (97) 100 03/24/19 14:00 78 22 143/65 (91) 100 03/24/19 13:00 77 22 140/60 (86) 100 03/24/19 12:00 98.7 81 23 149/58 (88) 100 03/24/19 12:00 2.0 03/24/19 12:00 Nasal Cannula 2.0 Nasal Cannula 2.0 Nasal Cannula 2.0 03/24/19 12:00 83 03/24/19 11:00 75 22 133/51 (78) 100 Intake and Output 03/24/19 03/25/19 19:00 07:00 Intake Total 720 ml 1030.000 ml Output Total 1220 ml 650 ml Balance -500 ml 380.000 ml Free Water 100 ml IV Total 330.000 ml Tube Feeding 720 ml 540 ml Other 60 ml Output Urine Total 1220 ml 650 ml # Bowel Movements 3 Laboratory Tests 03/25/19 02:00: Random Amikacin Level 7.6 03/25/19 04:00: White Blood Count 7.9, Red Blood Count 2.71L, Hemoglobin 9.0L, Hematocrit 28.1L , Mean Corpuscular Volume 104H, Mean Corpuscular Hemoglobin 33.1H, Mean Corpuscular Hemoglobin Concent 32.0, Red Cell Distribution Width 14.5, Platelet Count 231, Mean Platelet Volume 6.4L, Neutrophils (%) (Auto) 69.2, Lymphocytes ( %) (Auto) 19.4L, Monocytes (%) (Auto) 6.4, Eosinophils (%) (Auto) 4.2H, Basophils (%) (Auto) 0.7, Sodium Level 149H, Potassium Level 3.7, Chloride Level 111H, Carbon Dioxide Level 37H, Anion Gap 1L, Blood Urea Nitrogen 16, Creatinine 0.6, Estimat Glomerular Filtration Rate , Glucose Level 132H, Calcium Level 8.7, Total Bilirubin 0.2, Aspartate Amino Transf (AST/SGOT) 28, Alanine Aminotransferase (ALT/SGPT) 14, Alkaline Phosphatase 98, Total Protein 6.5, Albumin 1.8L, Globulin 4.7, Albumin/Globulin Ratio 0.4L Height (Feet): 5 Height (Inches): 8.00 Weight (Pounds): 170 General Appearance: no apparent distress, lethargic EENT: normal ENT inspection Neck: normal alignment Cardiovascular: regular rhythm Respiratory/Chest: rhonchi - bilaterally Abdomen: non tender, soft Extremities: trace edema Neurologic: disoriented Lamberto Álvarez MD March 25, 2019 10:30
--- NOTE | 2019-03-25 11:59 | Diagnostic Imaging Report ---
Indication: Shortness of breath Technique: One view of the chest Comparison: 03/24/2019 Findings: Interim removal of previously demonstrated right jugular central venous catheter. Post PICC radiograph left arm PICC remains Bilateral right greater than left pleural effusions are again demonstrated. The heart size is on preliminary normal. Impression: Interim central venous catheter removal. Otherwise little manager change one day, findings as noted
[2019-03-25] MEDS ORDERED: NS 275ml ONE (15:01)
[2019-03-25] MEDS ORDERED: Sterile Water Irrig 1000ml IRRIG ONE (15:01)
[2019-03-25] MEDS ORDERED: Tubing IV Secondary IV ONE (15:01)
[2019-03-25] MEDS: Vancomycin 500mg/D5W 110ml IVPB SCH ×2 (15:23)
--- NOTE | 2019-03-25 18:00 | Pulmonology Progress Note ---
Assessment/Plan Assessment/Plan 1. Acute respiratory failure, improved 2. Severe dehydration with shock. 3. Severe hypernatremia. 4. Multi-infarct dementia. 5. Possible acute myocardial infarction. 6. CHF 7. History of atrial fibrillation. 8. Gastric tube with dysphagia. 9. History of chronic obstructive pulmonary disease. 10. History of seizures with therapeutic Dilantin level. 11. History of hypertension. 12. Hyperlipidemia. 13. Diabetes. 14. Sepsis - JERKER bacteremia more distress today HHN, suction keep in ICU disc w RN at bedside Subjective ROS Limited/Unobtainable: Yes Allergies: Coded Allergies: PENICILLINS (Verified Allergy, Unknown, 02/04/18) SULFA (SULFONAMIDE ANTIBIOTICS) (Verified Allergy, Unknown, 02/04/18) SULFACETAMIDE (Unverified Allergy, Unknown, 06/24/18) Objective Last 24 Hour Vital Signs Date Time Temp Pulse Resp B/P (MAP) Pulse Ox O2 Delivery O2 Flow Rate FiO2 03/25/19 15:00 90 23 125/65 (85) 100 03/25/19 14:00 88 23 128/67 (87) 100 03/25/19 13:00 87 22 130/65 (86) 100 03/25/19 12:00 80 03/25/19 12:00 98.8 85 25 145/7 (53) 100 03/25/19 12:00 Nasal Cannula 2.0 Nasal Cannula 2.0 Nasal Cannula 2.0 03/25/19 11:00 84 25 125/61 (82) 100 03/25/19 10:00 80 25 118/60 (79) 100 03/25/19 09:31 166/89 03/25/19 09:00 75 25 115/55 (75) 100 03/25/19 08:00 Nasal Cannula 2.0 Nasal Cannula 2.0 Nasal Cannula 2.0 03/25/19 08:00 84 03/25/19 08:00 98.7 72 25 120/64 (82) 100 03/25/19 07:06 99 Nasal Cannula 2.0 28 03/25/19 07:00 69 25 113/59 (77) 100 03/25/19 06:00 78 25 131/55 (80) 100 03/25/19 05:00 73 25 116/47 (70) 100 03/25/19 04:00 80 03/25/19 04:00 Nasal Cannula 2.0 Nasal Cannula 2.0 Nasal Cannula 2.0 03/25/19 04:00 98.5 77 22 138/56 (83) 100 03/25/19 03:00 86 25 161/64 (96) 03/25/19 02:00 78 20 148/51 (83) 100 03/25/19 01:00 73 22 125/55 (78) 03/25/19 00:00 98.3 77 28 155/63 (93) 100 03/25/19 00:00 Nasal Cannula 2.0 Nasal Cannula 2.0 Nasal Cannula 2.0 03/25/19 00:00 82 03/24/19 23:00 79 22 152/73 (99) 100 03/24/19 22:00 79 22 155/59 (91) 100 03/24/19 21:00 80 26 146/61 (89) 100 03/24/19 20:00 98.5 82 29 164/68 (100) 100 03/24/19 20:00 Nasal Cannula 2.0 Nasal Cannula 2.0 Nasal Cannula 2.0 03/24/19 20:00 81 03/24/19 19:54 100 Nasal Cannula 2.0 28 03/24/19 19:00 84 21 144/68 (93) 100 03/24/19 18:00 80 21 140/65 (90) 100 Intake and Output 03/24/19 03/25/19 19:00 07:00 Intake Total 720 ml 1030.000 ml Output Total 1220 ml 650 ml Balance -500 ml 380.000 ml Free Water 100 ml IV Total 330.000 ml Tube Feeding 720 ml 540 ml Other 60 ml Output Urine Total 1220 ml 650 ml # Bowel Movements 3 Objective GT Respiratory/Chest: respiratory distress, accessory muscle use, rhonchi Cardiovascular: tachycardia Microbiology Date/Time Source Procedure Growth Status 03/22/19 23:30 Sputum Induced Gram Stain - Final Resulted 03/22/19 23:30 Sputum Culture - Preliminary Pseudomonas Aeruginosa Pseudomonas Aeruginosa#2 Resulted Laboratory Tests 03/25/19 02:00: Random Amikacin Level 7.6 03/25/19 04:00: White Blood Count 7.9, Red Blood Count 2.71L, Hemoglobin 9.0L, Hematocrit 28.1L , Mean Corpuscular Volume 104H, Mean Corpuscular Hemoglobin 33.1H, Mean Corpuscular Hemoglobin Concent 32.0, Red Cell Distribution Width 14.5, Platelet Count 231, Mean Platelet Volume 6.4L, Neutrophils (%) (Auto) 69.2, Lymphocytes ( %) (Auto) 19.4L, Monocytes (%) (Auto) 6.4, Eosinophils (%) (Auto) 4.2H, Basophils (%) (Auto) 0.7, Sodium Level 149H, Potassium Level 3.7, Chloride Level 111H, Carbon Dioxide Level 37H, Anion Gap 1L, Blood Urea Nitrogen 16, Creatinine 0.6, Estimat Glomerular Filtration Rate , Glucose Level 132H, Calcium Level 8.7, Total Bilirubin 0.2, Aspartate Amino Transf (AST/SGOT) 28, Alanine Aminotransferase (ALT/SGPT) 14, Alkaline Phosphatase 98, Total Protein 6.5, Albumin 1.8L, Globulin 4.7, Albumin/Globulin Ratio 0.4L 03/25/19 11:00: Vancomycin Level Trough 22.5H Current Medications Medications (Trade) Dose Ordered Sig/Singh Route PRN Reason Start Time Stop Time Status Last Admin Dose Admin Acetaminophen (Tylenol) 650 mg Q4H PRN GT Mild Pain/Temp > 100.5 03/09/19 20:30 04/08/19 20:29 03/17/19 16:35 Albuterol/ Ipratropium (Albuterol/ Ipratropium) 3 ml Q4HRT HHN 03/25/19 19:00 03/30/19 18:59 UNV Amikacin Protocol (Amikacin pharmacy to dose) 1 ea DAILY PRN MISC Per rx protocol 03/24/19 11:30 04/23/19 11:29 Amikacin Sulfate 1000 mg/Sodium Chloride 114 ml @ 228 mls/hr Q36H IV 03/26/19 02:00 04/02/19 01:59 Bumetanide (Bumex) 1 mg BID IVP 03/24/19 12:30 04/23/19 12:29 03/25/19 17:24 Cefepime HCl 1 gm/ Dextrose 50 ml @ 100 mls/hr Q24H IVPB 03/25/19 17:00 04/01/19 16:59 03/25/19 17:24 Chlorhexidine Gluconate (Azra-Hex 2%) 1 applic DAILY@2000 TOPIC 03/10/19 20:00 04/09/19 19:59 03/24/19 20:02 Dextrose (Dextrose 50%) 25 ml Q30M PRN IV Hypoglycemia 03/09/19 21:00 04/08/19 20:59 Dextrose (Dextrose 50%) 50 ml Q30M PRN IV Hypoglycemia 03/09/19 21:00 04/08/19 20:59 Insulin Aspart (NovoLOG) EVERY 6 HOURS SUBQ 03/10/19 00:00 04/09/19 00:00 03/25/19 17:25 Lansoprazole (Prevacid) 30 mg DAILY GT 03/25/19 09:00 04/24/19 08:59 03/25/19 09:31 Lisinopril (Zestril) 10 mg DAILY GT 03/25/19 09:00 04/19/19 08:59 03/25/19 09:31 Metronidazole 100 ml @ 100 mls/hr Q8HR IVPB 03/25/19 14:00 04/01/19 13:59 03/25/19 14:26 Phenytoin (Dilantin) 125 mg Q12HR GT 03/09/19 21:00 04/08/19 20:59 03/25/19 09:31 Potassium Chloride 40 meq/ Dextrose 1,020 ml @ 50 mls/hr [id number] IV 03/25/19 12:00 04/24/19 11:59 03/25/19 12:35 Vancomycin HCl (Vanco rx to dose) 1 ea DAILY PRN MISC Per rx protocol 03/24/19 11:30 04/23/19 11:29 Vancomycin HCl 500 mg/Dextrose 110 ml @ 110 mls/hr Q12HR@0300,1500 IVPB 03/25/19 15:00 03/30/19 14:59 03/25/19 15:23 Fernando Franks MD March 25, 2019 18:00
--- NOTE | 2019-03-25 18:46 | Emergency Room Report ---
History of Present Illness General Chief Complaint: Altered Level of Consciousness Source: Medical Record Present Illness Allergies: Coded Allergies: PENICILLINS (Verified Allergy, Unknown, 02/04/18) SULFA (SULFONAMIDE ANTIBIOTICS) (Verified Allergy, Unknown, 02/04/18) SULFACETAMIDE (Unverified Allergy, Unknown, 06/24/18) Nursing Documentation-[facility] Past Medical History Deferred: Pt Cognitively Impaired Past Medical History: No History, Except For Hx Cardiac Problems: Yes Hx Hypertension: Yes Hx COPD: Yes Hx Diabetes: Yes Hx Cancer: No Hx Gastrointestinal Problems: Yes Hx Neurological Problems: Yes Hx Cerebrovascular Accident: Yes Hx Transient Ischemic Attacks: Yes Hx Seizures: Yes Hx Dizziness: Yes Hx Syncope: Yes Hx Weakness: Yes Hx Fatigue: Yes Physical Exam Vital Signs Date Time Temp Pulse Resp B/P (MAP) Pulse Ox O2 Delivery O2 Flow Rate FiO2 03/21/19 07:00 73 16 144/53 (83) 100 03/21/19 07:19 30 03/21/19 08:00 98.9 03/21/19 08:00 Mechanical Ventilator Mechanical Ventilator 03/23/19 12:57 4.0 Procedures CPR/Code Blue CPR/Code Blue Narrative I was called to evaluate patient for CODE BLUE. Patient was noted to have respiratory arrest and bradycardia. Patient was noted to have Rosc prior to my arrival. Patient was noted to have metabolic acidosis arterial blood gas and was intubated for poor handling of secretions and respiratory acidosis. Intubation Intubation : Consent: Emergent Time of Intubation: 18:41 Intubation Method: orotracheal Tube Size (cm): 7.5 Medications: Rocuronium Breath Sounds after Intubation: right greater than left Intubation Complications: no complications Post Intubation Xray: Yes Attempts: One Patient Tolerated: Well Complications: Other - lip abrasion Medical Decision Making Diagnostic Impression: Primary Impression: Altered level of consciousness Additional Impressions: Septic shock Respiratory failure Last Vital Signs Date Time Temp Pulse Resp B/P (MAP) Pulse Ox O2 Delivery O2 Flow Rate FiO2 03/25/19 18:00 78 23 148/75 (99) 100 03/25/19 16:00 Nasal Cannula 2.0 Nasal Cannula 2.0 Nasal Cannula 2.0 03/25/19 16:00 98.4 03/25/19 07:06 28 Disposition: ADMITTED INPATIENT Condition: Critical Referrals: Michael Sprague MD (PCP) Aldair Hendrickson MD March 25, 2019 18:46
[2019-03-25] MEDS: Albuterol/Ipratropium 3ml neb HHN SCH ×2 (18:57→23:11)
[2019-03-25] MEDS: Dyna-Hex 2% Top Sol 2oz TOPIC SCH (20:31)
--- NOTE | 2019-03-25 20:59 | Cardiology Progress Note ---
Assessment/Plan Assessment/Plan 1. Hypernatremia free water deficit 2. Likely demand ischemia 3. Metabolic alkalosis. 4. altered mentation secondary to above. 5. Anemia, mild. 6. History of seizures. 7. Diabetes history. 8. Hypertension history. 9. hs of diastolic failure 10.New LV systolic dysfunction ? 11. bactermia 12 edema 13. respiratory arrest 03/10 echo report noted some echo views were reviewed may not have as bad an lv function as reported atlhgouh the images are not typical stress induced cm may be in the differential on iv abx hemodynamic are stable tele monitor sinus on iv abx keep on diuretic may need free water and diuretic at the same time will leave to renla vent support post reintubatio for resp arrest Subjective ROS Limited/Unobtainable: Yes Subjective had repiratory arrest per rn now reintubated Objective Last 24 Hour Vital Signs Date Time Temp Pulse Resp B/P (MAP) Pulse Ox O2 Delivery O2 Flow Rate FiO2 03/25/19 20:49 86 17 50 03/25/19 19:07 92 18 100 Mechanical Ventilator 100 03/25/19 19:00 89 23 141/82 (101) 100 03/25/19 18:58 100 Mechanical Ventilator 100 03/25/19 18:57 88 18 100 Mechanical Ventilator 100 03/25/19 18:48 91 18 100 Mechanical Ventilator 100 03/25/19 18:45 91 18 100 03/25/19 18:00 78 23 148/75 (99) 100 03/25/19 17:00 82 23 140/64 (89) 100 03/25/19 16:00 Nasal Cannula 2.0 Nasal Cannula 2.0 Nasal Cannula 2.0 03/25/19 16:00 82 03/25/19 16:00 98.4 85 23 135/70 (91) 100 03/25/19 15:00 90 23 125/65 (85) 100 03/25/19 14:00 88 23 128/67 (87) 100 03/25/19 13:00 87 22 130/65 (86) 100 03/25/19 12:00 80 03/25/19 12:00 98.8 85 25 145/7 (53) 100 03/25/19 12:00 Nasal Cannula 2.0 Nasal Cannula 2.0 Nasal Cannula 2.0 03/25/19 11:00 84 25 125/61 (82) 100 03/25/19 10:00 80 25 118/60 (79) 100 03/25/19 09:31 166/89 03/25/19 09:00 75 25 115/55 (75) 100 03/25/19 08:00 Nasal Cannula 2.0 Nasal Cannula 2.0 Nasal Cannula 2.0 03/25/19 08:00 84 03/25/19 08:00 98.7 72 25 120/64 (82) 100 03/25/19 07:06 99 Nasal Cannula 2.0 28 03/25/19 07:00 69 25 113/59 (77) 100 03/25/19 06:00 78 25 131/55 (80) 100 03/25/19 05:00 73 25 116/47 (70) 100 03/25/19 04:00 80 03/25/19 04:00 Nasal Cannula 2.0 Nasal Cannula 2.0 Nasal Cannula 2.0 03/25/19 04:00 98.5 77 22 138/56 (83) 100 03/25/19 03:00 86 25 161/64 (96) 03/25/19 02:00 78 20 148/51 (83) 100 03/25/19 01:00 73 22 125/55 (78) 03/25/19 00:00 98.3 77 28 155/63 (93) 100 03/25/19 00:00 Nasal Cannula 2.0 Nasal Cannula 2.0 Nasal Cannula 2.0 03/25/19 00:00 82 03/24/19 23:00 79 22 152/73 (99) 100 03/24/19 22:00 79 22 155/59 (91) 100 03/24/19 21:00 80 26 146/61 (89) 100 General Appearance: no apparent distress, on vent, patient on isolation Neck: supple Cardiovascular: normal rate Respiratory/Chest: lungs clear Abdomen: normal bowel sounds, non tender, soft Extremities: no swelling Intake and Output 03/24/19 03/25/19 19:00 07:00 Intake Total 720 ml 1030.000 ml Output Total 1220 ml 650 ml Balance -500 ml 380.000 ml Free Water 100 ml IV Total 330.000 ml Tube Feeding 720 ml 540 ml Other 60 ml Output Urine Total 1220 ml 650 ml # Bowel Movements 3 Laboratory Tests Test 03/25/19 02:00 03/25/19 04:00 03/25/19 11:00 03/25/19 18:19 Random Amikacin Level 7.6 ug/mL White Blood Count 7.9 K/UL (4.8-10.8) Red Blood Count 2.71 M/UL (4.20-5.40) L Hemoglobin 9.0 G/DL (12.0-16.0) L Hematocrit 28.1 % (37.0-47.0) L Mean Corpuscular Volume 104 FL (80-99) H Mean Corpuscular Hemoglobin 33.1 PG (27.0-31.0) H Mean Corpuscular Hemoglobin Concent 32.0 G/DL (32.0-36.0) Red Cell Distribution Width 14.5 % (11.6-14.8) Platelet Count 231 K/UL (150-450) Mean Platelet Volume 6.4 FL (6.5-10.1) L Neutrophils (%) (Auto) 69.2 % (45.0-75.0) Lymphocytes (%) (Auto) 19.4 % (20.0-45.0) L Monocytes (%) (Auto) 6.4 % (1.0-10.0) Eosinophils (%) (Auto) 4.2 % (0.0-3.0) H Basophils (%) (Auto) 0.7 % (0.0-2.0) Sodium Level 149 MMOL/L (136-145) H Potassium Level 3.7 MMOL/L (3.5-5.1) Chloride Level 111 MMOL/L (98-107) H Carbon Dioxide Level 37 MMOL/L (21-32) H Anion Gap 1 mmol/L (5-15) L Blood Urea Nitrogen 16 mg/dL (7-18) Creatinine 0.6 MG/DL (0.55-1.30) Estimat Glomerular Filtration Rate mL/min (>60) Glucose Level 132 MG/DL (74-106) H Calcium Level 8.7 MG/DL (8.5-10.1) Total Bilirubin 0.2 MG/DL (0.2-1.0) Aspartate Amino Transf (AST/SGOT) 28 U/L (15-37) Alanine Aminotransferase (ALT/SGPT) 14 U/L (12-78) Alkaline Phosphatase 98 U/L (46-116) Total Protein 6.5 G/DL (6.4-8.2) Albumin 1.8 G/DL (3.4-5.0) L Globulin 4.7 g/dL Albumin/Globulin Ratio 0.4 (1.0-2.7) L Vancomycin Level Trough 22.5 ug/mL (5.0-12.0) H Arterial Blood pH 7.185 (7.350-7.450) Arterial Blood Partial Pressure CO2 86.2 mmHg (35.0-45.0) *H Arterial Blood Partial Pressure O2 99.1 mmHg (75.0-100.0) Arterial Blood HCO3 30.7 mmol/L (22.0-26.0) H Arterial Blood Oxygen Saturation 95.3 % (95-100) Arterial Blood Base Excess 0.6 (-2-2) Jose Luis Test Positive Test 03/25/19 20:03 Arterial Blood pH 7.591 (7.350-7.450) Arterial Blood Partial Pressure CO2 31.6 mmHg (35.0-45.0) L Arterial Blood Partial Pressure O2 414.2 mmHg (75.0-100.0) H Arterial Blood HCO3 29.7 mmol/L (22.0-26.0) H Arterial Blood Oxygen Saturation 99.6 % (95-100) Arterial Blood Base Excess 8.0 (-2-2) H Jose Luis Test Positive Microbiology Date/Time Source Procedure Growth Status 03/22/19 23:30 Sputum Induced Gram Stain - Final Resulted 03/22/19 23:30 Sputum Culture - Preliminary Pseudomonas Aeruginosa Pseudomonas Aeruginosa#2 Resulted Allen Bliss MD March 25, 2019 20:58
[2019-03-26] VITALS (25 sets, daily range): BP systolic 88–138; BP diastolic 35–59
[2019-03-26] MEDS ORDERED: Amikacin 750 MG in NS 110 ML IV SCH (02:00)
[2019-03-26] MEDS: Amikacin 1,000 MG in NS 110 ML IV SCH (02:04)
[2019-03-26] MEDS: Vancomycin 500mg/D5W 110ml IVPB SCH ×4 (03:10→14:01)
[2019-03-26] MEDS: Albuterol/Ipratropium 3ml neb HHN SCH ×6 (03:24→23:24)
[2019-03-26 05:50] LABS: BASOPHILS % (AUTO) 0.5 % (0.0-2.0); EOSINOPHILS % (AUTO) 1.3 % (0.0-3.0); HEMATOCRIT 27.7 % (37.0-47.0); HEMOGLOBIN 8.9 G/DL (12.0-16.0); LYMPHOCYTES % (AUTO) 13.6 % (20.0-45.0); MEAN CORPUSCULAR VOLUME 103 FL (80-99); MONOCYTES % (AUTO) 6.9 % (1.0-10.0); NEUTROPHILS % (AUTO) 77.7 % (45.0-75.0); PLATELET COUNT 197 K/UL (150-450); RED BLOOD COUNT 2.69 M/UL (4.20-5.40); RED CELL DISTRIBUTION WIDTH 14.6 % (11.6-14.8); WHITE BLOOD COUNT 9.5 K/UL (4.8-10.8)
[2019-03-26] MEDS: NovoLOG Insulin Flexpen SUBQ SCH ×3 (05:58→17:47)
[2019-03-26 06:11] LABS: ANION GAP 2 mmol/L (5-15); BLOOD UREA NITROGEN 21 mg/dL (7-18); CALCIUM 8.7 MG/DL (8.5-10.1); CARBON DIOXIDE 37 MMOL/L (21-32); CHLORIDE 109 MMOL/L (98-107); CREATININE 0.7 MG/DL (0.55-1.30); POTASSIUM 3.8 MMOL/L (3.5-5.1); SODIUM 147 MMOL/L (136-145)
[2019-03-26] MEDS: Phenytoin Susp 100mg/4ml GT SCH ×2 (08:22→21:01)
[2019-03-26] MEDS: Lisinopril 10mg tab GT SCH (08:23)
[2019-03-26] MEDS: Bumetanide 2.5mg/10ml Inj IVP SCH ×2 (08:28→17:22)
--- NOTE | 2019-03-26 10:49 | Diagnostic Imaging Report ---
Indication: Intubation Comparison: 03/25/2019 A single view chest radiograph was obtained. Findings: Endotracheal tube is several centimeters above the sandi in satisfactory position. No change otherwise. IMPRESSION: Endotracheal tube in good position
[2019-03-26] MEDS: Acetaminophen 650mg/20.3ml GT PRN (12:18)
--- NOTE | 2019-03-26 15:15 | Pulmonology Progress Note ---
Assessment/Plan Assessment/Plan 1. Acute respiratory failure, improved 2. Severe dehydration with shock. 3. Severe hypernatremia. 4. Multi-infarct dementia. 5. Possible acute myocardial infarction. 6. CHF 7. History of atrial fibrillation. 8. Gastric tube with dysphagia. 9. History of chronic obstructive pulmonary disease. 10. History of seizures with therapeutic Dilantin level. 11. History of hypertension. 12. Hyperlipidemia. 13. Diabetes. 14. Sepsis - FLOAT REMOVER bacteremia reintubated after my visit yesterday per family wishes on vent ABG better family here today and dtr advises she has spoken with all the children and they have decided to comply with patient's wishes for no prolonged life support and to proceed with terminal extubation next week when all the family can be at the bedside Subjective ROS Limited/Unobtainable: Yes Allergies: Coded Allergies: PENICILLINS (Verified Allergy, Unknown, 02/04/18) SULFA (SULFONAMIDE ANTIBIOTICS) (Verified Allergy, Unknown, 02/04/18) SULFACETAMIDE (Unverified Allergy, Unknown, 06/24/18) Objective Last 24 Hour Vital Signs Date Time Temp Pulse Resp B/P (MAP) Pulse Ox O2 Delivery O2 Flow Rate FiO2 03/26/19 15:05 72 12 100 Mechanical Ventilator 30 03/26/19 14:00 77 15 128/58 (81) 100 03/26/19 13:00 77 15 95/43 (60) 99 03/26/19 12:43 78 16 30 03/26/19 12:00 30 03/26/19 12:00 100.1 78 14 112/49 (70) 100 03/26/19 12:00 78 03/26/19 12:00 Mechanical Ventilator Mechanical Ventilator Mechanical Ventilator 03/26/19 11:00 78 15 103/43 (63) 100 03/26/19 10:41 85 13 100 Mechanical Ventilator 30 03/26/19 10:31 78 13 100 Mechanical Ventilator 30 03/26/19 10:30 79 15 30 03/26/19 10:05 79 16 91/35 (53) 100 03/26/19 10:00 78 16 88/37 (54) 100 03/26/19 09:16 74 13 30 03/26/19 09:00 74 16 120/50 (73) 100 03/26/19 08:23 108/43 5/31/19 08:00 30 03/26/19 08:00 73 03/26/19 08:00 Mechanical Ventilator Mechanical Ventilator Mechanical Ventilator 03/26/19 08:00 99.7 76 6 122/51 (74) 99 03/26/19 07:16 79 20 100 Mechanical Ventilator 30 03/26/19 07:05 73 12 30 03/26/19 07:05 73 12 100 Mechanical Ventilator 30 03/26/19 07:00 73 12 118/43 (68) 78 03/26/19 06:00 75 16 115/48 (70) 100 03/26/19 05:08 74 12 30 03/26/19 05:00 74 16 109/44 (65) 100 03/26/19 04:00 79 03/26/19 04:00 98.8 81 19 131/55 (80) 100 03/26/19 04:00 Mechanical Ventilator Mechanical Ventilator Mechanical Ventilator 03/26/19 04:00 30 03/26/19 03:34 83 16 100 Mechanical Ventilator 30 03/26/19 03:24 77 13 100 Mechanical Ventilator 30 03/26/19 03:23 77 13 30 03/26/19 03:00 79 13 116/57 (76) 100 03/26/19 02:00 77 16 115/52 (73) 100 03/26/19 01:00 83 15 138/56 (83) 100 03/26/19 00:58 79 14 35 03/26/19 00:00 35 03/26/19 00:00 79 03/26/19 00:00 Mechanical Ventilator Mechanical Ventilator Mechanical Ventilator 03/26/19 00:00 98.3 82 17 125/54 (77) 100 03/25/19 23:21 80 14 100 Mechanical Ventilator 35 03/25/19 23:11 78 12 100 Mechanical Ventilator 35 03/25/19 23:10 78 12 35 03/25/19 23:00 78 14 122/53 (76) 100 03/25/19 22:00 75 15 107/50 (69) 100 03/25/19 21:00 79 12 132/53 (79) 100 03/25/19 20:49 50 03/25/19 20:49 86 17 50 03/25/19 20:00 Mechanical Ventilator Mechanical Ventilator Mechanical Ventilator 03/25/19 20:00 100 03/25/19 20:00 95 03/25/19 20:00 98.0 87 18 144/63 (90) 100 03/25/19 19:07 92 18 100 Mechanical Ventilator 100 03/25/19 19:00 89 23 141/82 (101) 100 03/25/19 18:58 100 Mechanical Ventilator 100 03/25/19 18:57 88 18 100 Mechanical Ventilator 100 03/25/19 18:48 91 18 100 Mechanical Ventilator 100 03/25/19 18:45 91 18 100 03/25/19 18:00 78 23 148/75 (99) 100 03/25/19 17:00 82 23 140/64 (89) 100 03/25/19 16:00 Nasal Cannula 2.0 Nasal Cannula 2.0 Nasal Cannula 2.0 03/25/19 16:00 82 03/25/19 16:00 98.4 85 23 135/70 (91) 100 Intake and Output 03/25/19 03/26/19 19:00 07:00 Intake Total 770 ml 1024 ml Output Total 900 ml 730 ml Balance -130 ml 294 ml IV Total 50 ml 1024 ml Tube Feeding 720 ml Output Urine Total 900 ml 730 ml Objective GT HEENT: atraumatic Laboratory Tests 03/25/19 18:19: Arterial Blood pH 7.185*L, Arterial Blood Partial Pressure CO2 86.2*H, Arterial Blood Partial Pressure O2 99.1, Arterial Blood HCO3 30.7H, Arterial Blood Oxygen Saturation 95.3, Arterial Blood Base Excess 0.6, Jose Luis Test Positive 03/25/19 20:03: Arterial Blood pH 7.591*H, Arterial Blood Partial Pressure CO2 31.6L, Arterial Blood Partial Pressure O2 414.2H, Arterial Blood HCO3 29.7H, Arterial Blood Oxygen Saturation 99.6, Arterial Blood Base Excess 8.0H, Jose Lusi Test Positive 03/26/19 04:45: White Blood Count 9.5, Red Blood Count 2.69L, Hemoglobin 8.9L, Hematocrit 27.7L , Mean Corpuscular Volume 103H, Mean Corpuscular Hemoglobin 33.0H, Mean Corpuscular Hemoglobin Concent 32.0, Red Cell Distribution Width 14.6, Platelet Count 197, Mean Platelet Volume 7.1, Neutrophils (%) (Auto) 77.7H, Lymphocytes ( %) (Auto) 13.6L, Monocytes (%) (Auto) 6.9, Eosinophils (%) (Auto) 1.3, Basophils (%) (Auto) 0.5, Sodium Level 147H, Potassium Level 3.8, Chloride Level 109H, Carbon Dioxide Level 37H, Anion Gap 2L, Blood Urea Nitrogen 21H, Creatinine 0.7, Estimat Glomerular Filtration Rate , Glucose Level 145H, Calcium Level 8.7 03/26/19 07:55: Arterial Blood pH 7.527H, Arterial Blood Partial Pressure CO2 40.1, Arterial Blood Partial Pressure O2 90.6, Arterial Blood HCO3 32.5H, Arterial Blood Oxygen Saturation 96.7, Arterial Blood Base Excess 9.0H, Jose Luis Test Positive Current Medications Medications (Trade) Dose Ordered Sig/Singh Route PRN Reason Start Time Stop Time Status Last Admin Dose Admin Acetaminophen (Tylenol) 650 mg Q4H PRN GT Mild Pain/Temp > 100.5 03/09/19 20:30 04/08/19 20:29 03/26/19 12:18 Albuterol/ Ipratropium (Albuterol/ Ipratropium) 3 ml Q4HRT HHN 03/25/19 19:00 03/30/19 18:59 03/26/19 15:05 Amikacin Protocol (Amikacin pharmacy to dose) 1 ea DAILY PRN MISC Per rx protocol 03/24/19 11:30 04/23/19 11:29 Amikacin Sulfate 1000 mg/Sodium Chloride 114 ml @ 228 mls/hr Q36H IV 03/26/19 02:00 04/02/19 01:59 03/26/19 02:04 Bumetanide (Bumex) 1 mg BID IVP 03/24/19 12:30 04/23/19 12:29 03/26/19 08:28 Cefepime HCl 1 gm/ Dextrose 50 ml @ 100 mls/hr Q24H IVPB 03/25/19 17:00 04/01/19 16:59 03/25/19 17:24 Chlorhexidine Gluconate (Azra-Hex 2%) 1 applic DAILY@2000 TOPIC 03/10/19 20:00 04/09/19 19:59 03/25/19 20:31 Dextrose (Dextrose 50%) 25 ml Q30M PRN IV Hypoglycemia 03/09/19 21:00 04/08/19 20:59 Dextrose (Dextrose 50%) 50 ml Q30M PRN IV Hypoglycemia 03/09/19 21:00 04/08/19 20:59 Insulin Aspart (NovoLOG) EVERY 6 HOURS SUBQ 03/10/19 00:00 04/09/19 00:00 03/26/19 12:20 Lansoprazole (Prevacid) 30 mg DAILY GT 03/25/19 09:00 04/24/19 08:59 03/26/19 08:22 Lisinopril (Zestril) 10 mg DAILY GT 03/25/19 09:00 04/19/19 08:59 03/26/19 08:23 Metronidazole 100 ml @ 100 mls/hr Q8HR IVPB 03/25/19 14:00 04/01/19 13:59 03/26/19 13:50 Phenytoin (Dilantin) 125 mg Q12HR GT 03/09/19 21:00 04/08/19 20:59 03/26/19 08:22 Potassium Chloride 40 meq/ Dextrose 1,020 ml @ 50 mls/hr [id number] IV 03/25/19 12:00 04/24/19 11:59 03/26/19 08:19 Vancomycin HCl (Vanco rx to dose) 1 ea DAILY PRN MISC Per rx protocol 03/24/19 11:30 04/23/19 11:29 Vancomycin HCl 500 mg/Dextrose 110 ml @ 110 mls/hr Q12HR@0300,1500 IVPB 03/25/19 15:00 03/30/19 14:59 03/26/19 14:01 Fernando Franks MD March 26, 2019 15:15
--- NOTE | 2019-03-26 15:32 | Infectious Diseases Prog Note ---
Assessment/Plan Assessment/Plan ASSESSMENT/PLAN: 1. 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 Respiratory failure, on vent - weaning per pulmonary 3. Diabetes. 4. Hypertension. 5. Blood sugar and blood pressure treatment per primary for diabetes and hypertension. 6. Atrial fibrillation. 7. Heart failure. 8. G-tube. 9. Skin care protocol. 10. Cardiomegaly. 11. CAD and CO. 12. Hyperlipidemia. 13. Seizure disorder. 14. GERD. 15. History of CVA. 16. Allergic to penicillin and sulfa, tolerates meropenem. 17. Social history is negative. 18. Family history is noncontributory. 19. MAR is noted. 20. Case discussed with Dr. Franks. 21. Continue treatment per primary consultants. Subjective Constitutional: Reports: fever, fatigue, other - re-intubated HEENT: Reports: congestion Respiratory: Reports: shortness of breath Cardiovascular: Reports: other - no pressors Gastrointestinal/Abdominal: Denies: nausea, vomiting, diarrhea Genitourinary: Reports: other - + macias - urine clear Neurologic: Denies: headache Psychiatric: Reports: other - na Skin: Denies: rash Hematologic: Denies: bleeding Musculoskeletal: Reports: other - na Allergies: Coded Allergies: PENICILLINS (Verified Allergy, Unknown, 02/04/18) SULFA (SULFONAMIDE ANTIBIOTICS) (Verified Allergy, Unknown, 02/04/18) SULFACETAMIDE (Unverified Allergy, Unknown, 06/24/18) Objective Vital Signs Last 24 Hour Vital Signs Date Time Temp Pulse Resp B/P (MAP) Pulse Ox O2 Delivery O2 Flow Rate FiO2 03/26/19 15:13 71 12 30 03/26/19 15:13 71 12 100 Mechanical Ventilator 03/26/19 15:05 72 12 100 Mechanical Ventilator 03/26/19 14:00 77 15 128/58 (81) 100 03/26/19 13:00 77 15 95/43 (60) 99 03/26/19 12:43 78 16 30 03/26/19 12:00 30 03/26/19 12:00 100.1 78 14 112/49 (70) 100 03/26/19 12:00 78 03/26/19 12:00 Mechanical Ventilator Mechanical Ventilator Mechanical Ventilator 03/26/19 11:00 78 15 103/43 (63) 100 03/26/19 10:41 85 13 100 Mechanical Ventilator 30 03/26/19 10:31 78 13 100 Mechanical Ventilator 30 03/26/19 10:30 79 15 30 03/26/19 10:05 79 16 91/35 (53) 100 03/26/19 10:00 78 16 88/37 (54) 100 03/26/19 09:16 74 13 30 03/26/19 09:00 74 16 120/50 (73) 100 03/26/19 08:23 108/43 03/26/19 08:00 30 03/26/19 08:00 73 03/26/19 08:00 Mechanical Ventilator Mechanical Ventilator Mechanical Ventilator 03/26/19 08:00 99.7 76 6 122/51 (74) 99 03/26/19 07:16 79 20 100 Mechanical Ventilator 30 03/26/19 07:05 73 12 30 03/26/19 07:05 73 12 100 Mechanical Ventilator 30 03/26/19 07:00 73 12 118/43 (68) 78 03/26/19 06:00 75 16 115/48 (70) 100 03/26/19 05:08 74 12 30 03/26/19 05:00 74 16 109/44 (65) 100 03/26/19 04:00 79 03/26/19 04:00 98.8 81 19 131/55 (80) 100 03/26/19 04:00 Mechanical Ventilator Mechanical Ventilator Mechanical Ventilator 03/26/19 04:00 30 03/26/19 03:34 83 16 100 Mechanical Ventilator 30 03/26/19 03:24 77 13 100 Mechanical Ventilator 30 03/26/19 03:23 77 13 30 03/26/19 03:00 79 13 116/57 (76) 100 03/26/19 02:00 77 16 115/52 (73) 100 03/26/19 01:00 83 15 138/56 (83) 100 03/26/19 00:58 79 14 35 03/26/19 00:00 35 03/26/19 00:00 79 03/26/19 00:00 Mechanical Ventilator Mechanical Ventilator Mechanical Ventilator 03/26/19 00:00 98.3 82 17 125/54 (77) 100 03/25/19 23:21 80 14 100 Mechanical Ventilator 35 03/25/19 23:11 78 12 100 Mechanical Ventilator 35 03/25/19 23:10 78 12 35 03/25/19 23:00 78 14 122/53 (76) 100 03/25/19 22:00 75 15 107/50 (69) 100 03/25/19 21:00 79 12 132/53 (79) 100 03/25/19 20:49 50 03/25/19 20:49 86 17 50 03/25/19 20:00 Mechanical Ventilator Mechanical Ventilator Mechanical Ventilator 03/25/19 20:00 100 03/25/19 20:00 95 03/25/19 20:00 98.0 87 18 144/63 (90) 100 03/25/19 19:07 92 18 100 Mechanical Ventilator 100 03/25/19 19:00 89 23 141/82 (101) 100 03/25/19 18:58 100 Mechanical Ventilator 100 03/25/19 18:57 88 18 100 Mechanical Ventilator 100 03/25/19 18:48 91 18 100 Mechanical Ventilator 100 03/25/19 18:45 91 18 100 03/25/19 18:00 78 23 148/75 (99) 100 03/25/19 17:00 82 23 140/64 (89) 100 03/25/19 16:00 Nasal Cannula 2.0 Nasal Cannula 2.0 Nasal Cannula 2.0 03/25/19 16:00 82 03/25/19 16:00 98.4 85 23 135/70 (91) 100 Height (Feet): 5 Height (Inches): 8.00 Weight (Pounds): 174 General Appearance: other - on vent, no pressors HEENT: normocephalic, atraumatic, anicteric Respiratory/Chest: crackles/rales, rhonchi - bilaterally Cardiovascular: normal rate, regular rhythm, no gallop/murmur, no JVD Abdomen: normal bowel sounds, soft, non tender, no organomegaly, non distended Genitourinary: other - + macias - urine clear Extremities: no cyanosis Skin: no rash 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 Findings: Endotracheal tube and right jugular line are stable. Mild pulmonary vascular congestion suspected. IMPRESSION: No change from the prior exam. Mild CHF suspected Chest x-ray - 03/17/19 - Comparison: 03/15/2019 A single view chest radiograph was obtained. Findings: Vascular congestion demonstrated. Tubes and lines are stable. Heart size is mildly enlarged and stable. Small right pleural effusion suspected. IMPRESSION: No change from the previous examination. Suspected CHF Chest x-ray - 03/22/19 - IMPRESSION: 1. Worsening small right pleural effusion. Similar small left pleural effusion. 2. Increased right lower lung atelectasis/airspace disease and similar left lung base opacity. Chest x-ray - 03/25/19- Procedure: XRAY Chest 1v Indication: Shortness of breath Technique: One view of the chest Comparison: 03/24/2019 Findings: Interim removal of previously demonstrated right jugular central venous catheter. Post PICC radiograph left arm PICC remains Bilateral right greater than left pleural effusions are again demonstrated. The heart size is on preliminary normal. Impression: Interim central venous catheter removal. Otherwise little warp changer one day, findings as noted 03/26/19 - chest x-ray - no change, report noted Microbiology Date/Time Source Procedure Growth Status 03/09/19 14:10 Blood Blood Culture - Final Staphylococcus Sp Coag Neg Complete 03/22/19 23:30 Sputum Induced Gram Stain - Final Complete 03/22/19 23:30 Sputum Culture - Final Pseudomonas Aeruginosa Pseudomonas Aeruginosa#2 Complete 03/11/19 17:00 Indwelling Cath Urine Culture - Final Escherichia Coli - Esbl Complete 03/09/19 14:35 Rectum VRE Culture - Final NO VANCOMYCIN RESISTANT ENTEROCOCCUS ... Complete 03/09/19 14:35 Rectum - Final NO CARBAPENEM-RESISTANT ENTEROBACTERI... Complete Laboratory Tests Test 03/25/19 18:19 03/25/19 20:03 03/26/19 04:45 03/26/19 07:55 Arterial Blood pH 7.185 (7.350-7.450) 7.591 (7.350-7.450) 7.527 (7.350-7.450) Arterial Blood Partial Pressure CO2 86.2 mmHg (35.0-45.0) *H 31.6 mmHg (35.0-45.0) L 40.1 mmHg (35.0-45.0) Arterial Blood Partial Pressure O2 99.1 mmHg (75.0-100.0) 414.2 mmHg (75.0-100.0) H 90.6 mmHg (75.0-100.0) Arterial Blood HCO3 30.7 mmol/L (22.0-26.0) H 29.7 mmol/L (22.0-26.0) H 32.5 mmol/L (22.0-26.0) H Arterial Blood Oxygen Saturation 95.3 % (95-100) 99.6 % (95-100) 96.7 % (95-100) Arterial Blood Base Excess 0.6 (-2-2) 8.0 (-2-2) H 9.0 (-2-2) H Jose Luis Test Positive Positive Positive White Blood Count 9.5 K/UL (4.8-10.8) Red Blood Count 2.69 M/UL (4.20-5.40) L Hemoglobin 8.9 G/DL (12.0-16.0) L Hematocrit 27.7 % (37.0-47.0) L Mean Corpuscular Volume 103 FL (80-99) H Mean Corpuscular Hemoglobin 33.0 PG (27.0-31.0) H Mean Corpuscular Hemoglobin Concent 32.0 G/DL (32.0-36.0) Red Cell Distribution Width 14.6 % (11.6-14.8) Platelet Count 197 K/UL (150-450) Mean Platelet Volume 7.1 FL (6.5-10.1) Neutrophils (%) (Auto) 77.7 % (45.0-75.0) H Lymphocytes (%) (Auto) 13.6 % (20.0-45.0) L Monocytes (%) (Auto) 6.9 % (1.0-10.0) Eosinophils (%) (Auto) 1.3 % (0.0-3.0) Basophils (%) (Auto) 0.5 % (0.0-2.0) Sodium Level 147 MMOL/L (136-145) H Potassium Level 3.8 MMOL/L (3.5-5.1) Chloride Level 109 MMOL/L (98-107) H Carbon Dioxide Level 37 MMOL/L (21-32) H Anion Gap 2 mmol/L (5-15) L Blood Urea Nitrogen 21 mg/dL (7-18) H Creatinine 0.7 MG/DL (0.55-1.30) Estimat Glomerular Filtration Rate mL/min (>60) Glucose Level 145 MG/DL (74-106) H Calcium Level 8.7 MG/DL (8.5-10.1) Current Medications Medications (Trade) Dose Ordered Sig/Singh Route PRN Reason Start Time Stop Time Status Last Admin Dose Admin Acetaminophen (Tylenol) 650 mg Q4H PRN GT Mild Pain/Temp > 100.5 03/09/19 20:30 04/08/19 20:29 03/26/19 12:18 Albuterol/ Ipratropium (Albuterol/ Ipratropium) 3 ml Q4HRT HHN 03/25/19 19:00 03/30/19 18:59 03/26/19 15:05 Amikacin Protocol (Amikacin pharmacy to dose) 1 ea DAILY PRN MISC Per rx protocol 03/24/19 11:30 04/23/19 11:29 Amikacin Sulfate 1000 mg/Sodium Chloride 114 ml @ 228 mls/hr Q36H IV 03/26/19 02:00 04/02/19 01:59 03/26/19 02:04 Bumetanide (Bumex) 1 mg BID IVP 03/24/19 12:30 04/23/19 12:29 03/26/19 08:28 Cefepime HCl 1 gm/ Dextrose 50 ml @ 100 mls/hr Q24H IVPB 03/25/19 17:00 04/01/19 16:59 03/25/19 17:24 Chlorhexidine Gluconate (Azra-Hex 2%) 1 applic DAILY@2000 TOPIC 03/10/19 20:00 04/09/19 19:59 03/25/19 20:31 Dextrose (Dextrose 50%) 25 ml Q30M PRN IV Hypoglycemia 03/09/19 21:00 04/08/19 20:59 Dextrose (Dextrose 50%) 50 ml Q30M PRN IV Hypoglycemia 03/09/19 21:00 04/08/19 20:59 Insulin Aspart (NovoLOG) EVERY 6 HOURS SUBQ 03/10/19 00:00 04/09/19 00:00 03/26/19 12:20 Lansoprazole (Prevacid) 30 mg DAILY GT 03/25/19 09:00 04/24/19 08:59 03/26/19 08:22 Lisinopril (Zestril) 10 mg DAILY GT 03/25/19 09:00 04/19/19 08:59 03/26/19 08:23 Metronidazole 100 ml @ 100 mls/hr Q8HR IVPB 03/25/19 14:00 04/01/19 13:59 03/26/19 13:50 Phenytoin (Dilantin) 125 mg Q12HR GT 03/09/19 21:00 04/08/19 20:59 03/26/19 08:22 Potassium Chloride 40 meq/ Dextrose 1,020 ml @ 50 mls/hr [id number] IV 03/25/19 12:00 04/24/19 11:59 03/26/19 08:19 Vancomycin HCl (Vanco rx to dose) 1 ea DAILY PRN MISC Per rx protocol 03/24/19 11:30 04/23/19 11:29 Vancomycin HCl 500 mg/Dextrose 110 ml @ 110 mls/hr Q12HR@0300,1500 IVPB 03/25/19 15:00 03/30/19 14:59 03/26/19 14:01 Prashanth Osborne MD March 26, 2019 15:32
[2019-03-26 19:00] LABS: APPEARANCE,URINE CLOUDY; BILIRUBIN, URINE NEGATIVE (NEGATIVE); GLUCOSE, URINE (UA) NEGATIVE (NEGATIVE); KETONES,URINE 1+ (NEGATIVE); LEUKOCYTE ESTERASE ,URINE 3+ (NEGATIVE); NITRITE,URINE NEGATIVE (NEGATIVE); PH,URINE 5 (4.5-8.0); PROTEIN,URINE 2+ (NEGATIVE); UROBILINOGEN,URINE NORMAL MG/DL (0.0-1.0)
[2019-03-26 19:07] LABS: COLOR,URINE PALE YELLOW
--- NOTE | 2019-03-26 19:27 | Cardiology Progress Note ---
Assessment/Plan Assessment/Plan 1. Hypernatremia free water deficit 2. Likely demand ischemia 3. Metabolic alkalosis. 4. altered mentation secondary to above. 5. Anemia, mild. 6. History of seizures. 7. Diabetes history. 8. Hypertension history. 9. hs of diastolic failure 10.New LV systolic dysfunction ? 11. bactermia 12 edema 13. respiratory arrest 03/10 echo report noted some echo views were reviewed may not have as bad an lv function as reported atlhgouh the images are not typical stress induced cm may be in the differential on iv abx hemodynamic are stable tele monitor sinus on iv abx keep on diuretic may need free water and diuretic at the same time will leave to renla vent support post reintubation for resp arrest d/w dtr yest who indicated pt would not like to have trach noted plan for possible terminal extubation next week Subjective ROS Limited/Unobtainable: Yes Subjective now reintubated Objective Last 24 Hour Vital Signs Date Time Temp Pulse Resp B/P (MAP) Pulse Ox O2 Delivery O2 Flow Rate FiO2 03/26/19 19:19 75 22 100 Mechanical Ventilator 30 03/26/19 19:15 74 19 30 03/26/19 18:00 74 14 119/45 (69) 100 03/26/19 17:00 67 12 88/35 (52) 100 03/26/19 16:56 67 12 30 03/26/19 16:00 99.1 69 12 113/44 (67) 100 03/26/19 16:00 30 03/26/19 16:00 Mechanical Ventilator Mechanical Ventilator Mechanical Ventilator 03/26/19 16:00 68 03/26/19 15:13 71 12 30 03/26/19 15:13 71 12 100 Mechanical Ventilator 30 03/26/19 15:05 72 12 100 Mechanical Ventilator 30 03/26/19 15:00 69 16 118/50 (72) 100 03/26/19 14:00 77 15 128/58 (81) 100 03/26/19 13:00 77 15 95/43 (60) 99 03/26/19 12:43 78 16 30 03/26/19 12:00 30 03/26/19 12:00 100.1 78 14 112/49 (70) 100 03/26/19 12:00 78 03/26/19 12:00 Mechanical Ventilator Mechanical Ventilator Mechanical Ventilator 03/26/19 11:00 78 15 103/43 (63) 100 03/26/19 10:41 85 13 100 Mechanical Ventilator 30 03/26/19 10:31 78 13 100 Mechanical Ventilator 30 03/26/19 10:30 79 15 30 03/26/19 10:05 79 16 91/35 (53) 100 03/26/19 10:00 78 16 88/37 (54) 100 03/26/19 09:16 74 13 30 03/26/19 09:00 74 16 120/50 (73) 100 03/26/19 08:23 108/43 03/26/19 08:00 30 03/26/19 08:00 73 03/26/19 08:00 Mechanical Ventilator Mechanical Ventilator Mechanical Ventilator 03/26/19 08:00 99.7 76 6 122/51 (74) 99 03/26/19 07:16 79 20 100 Mechanical Ventilator 30 03/26/19 07:05 73 12 30 03/26/19 07:05 73 12 100 Mechanical Ventilator 30 03/26/19 07:00 73 12 118/43 (68) 78 03/26/19 06:00 75 16 115/48 (70) 100 03/26/19 05:08 74 12 30 03/26/19 05:00 74 16 109/44 (65) 100 03/26/19 04:00 79 03/26/19 04:00 98.8 81 19 131/55 (80) 100 03/26/19 04:00 Mechanical Ventilator Mechanical Ventilator Mechanical Ventilator 03/26/19 04:00 30 03/26/19 03:34 83 16 100 Mechanical Ventilator 30 03/26/19 03:24 77 13 100 Mechanical Ventilator 30 03/26/19 03:23 77 13 30 03/26/19 03:00 79 13 116/57 (76) 100 03/26/19 02:00 77 16 115/52 (73) 100 03/26/19 01:00 83 15 138/56 (83) 100 03/26/19 00:58 79 14 35 03/26/19 00:00 35 03/26/19 00:00 79 03/26/19 00:00 Mechanical Ventilator Mechanical Ventilator Mechanical Ventilator 03/26/19 00:00 98.3 82 17 125/54 (77) 100 03/25/19 23:21 80 14 100 Mechanical Ventilator 35 03/25/19 23:11 78 12 100 Mechanical Ventilator 35 03/25/19 23:10 78 12 35 03/25/19 23:00 78 14 122/53 (76) 100 03/25/19 22:00 75 15 107/50 (69) 100 03/25/19 21:00 79 12 132/53 (79) 100 03/25/19 20:49 50 03/25/19 20:49 86 17 50 03/25/19 20:00 Mechanical Ventilator Mechanical Ventilator Mechanical Ventilator 03/25/19 20:00 100 03/25/19 20:00 95 03/25/19 20:00 98.0 87 18 144/63 (90) 100 General Appearance: no apparent distress, on vent, patient on isolation Cardiovascular: normal rate Respiratory/Chest: lungs clear - ant Abdomen: normal bowel sounds, non tender, soft Extremities: no swelling Intake and Output 03/25/19 03/26/19 19:00 07:00 Intake Total 770 ml 1024 ml Output Total 900 ml 730 ml Balance -130 ml 294 ml IV Total 50 ml 1024 ml Tube Feeding 720 ml Output Urine Total 900 ml 730 ml Laboratory Tests Test 03/25/19 20:03 03/26/19 04:45 03/26/19 07:55 03/26/19 15:20 Arterial Blood pH 7.591 (7.350-7.450) 7.527 (7.350-7.450) Arterial Blood Partial Pressure CO2 31.6 mmHg (35.0-45.0) L 40.1 mmHg (35.0-45.0) Arterial Blood Partial Pressure O2 414.2 mmHg (75.0-100.0) H 90.6 mmHg (75.0-100.0) Arterial Blood HCO3 29.7 mmol/L (22.0-26.0) H 32.5 mmol/L (22.0-26.0) H Arterial Blood Oxygen Saturation 99.6 % (95-100) 96.7 % (95-100) Arterial Blood Base Excess 8.0 (-2-2) H 9.0 (-2-2) H Jose Luis Test Positive Positive White Blood Count 9.5 K/UL (4.8-10.8) Red Blood Count 2.69 M/UL (4.20-5.40) L Hemoglobin 8.9 G/DL (12.0-16.0) L Hematocrit 27.7 % (37.0-47.0) L Mean Corpuscular Volume 103 FL (80-99) H Mean Corpuscular Hemoglobin 33.0 PG (27.0-31.0) H Mean Corpuscular Hemoglobin Concent 32.0 G/DL (32.0-36.0) Red Cell Distribution Width 14.6 % (11.6-14.8) Platelet Count 197 K/UL (150-450) Mean Platelet Volume 7.1 FL (6.5-10.1) Neutrophils (%) (Auto) 77.7 % (45.0-75.0) H Lymphocytes (%) (Auto) 13.6 % (20.0-45.0) L Monocytes (%) (Auto) 6.9 % (1.0-10.0) Eosinophils (%) (Auto) 1.3 % (0.0-3.0) Basophils (%) (Auto) 0.5 % (0.0-2.0) Sodium Level 147 MMOL/L (136-145) H Potassium Level 3.8 MMOL/L (3.5-5.1) Chloride Level 109 MMOL/L (98-107) H Carbon Dioxide Level 37 MMOL/L (21-32) H Anion Gap 2 mmol/L (5-15) L Blood Urea Nitrogen 21 mg/dL (7-18) H Creatinine 0.7 MG/DL (0.55-1.30) Estimat Glomerular Filtration Rate mL/min (>60) Glucose Level 145 MG/DL (74-106) H Calcium Level 8.7 MG/DL (8.5-10.1) Random Amikacin Level 13.0 ug/mL Test 03/26/19 18:40 Urine Color Pale yellow Urine Appearance Cloudy Urine pH 5 (4.5-8.0) Urine Specific [place] 1.010 (1.005-1.035) Urine Protein 2+ (NEGATIVE) H Urine Glucose (UA) Negative (NEGATIVE) Urine Ketones 1+ (NEGATIVE) H Urine Blood 3+ (NEGATIVE) H Urine Nitrite Negative (NEGATIVE) Urine Bilirubin Negative (NEGATIVE) Urine Urobilinogen Normal MG/DL (0.0-1.0) Urine Leukocyte Esterase 3+ (NEGATIVE) H Urine RBC 5-10 /HPF (0 - 2) H Urine WBC 10-15 /HPF (0 - 2) H Urine Squamous Epithelial Cells Few /LPF (NONE/OCC) Urine Bacteria Many /HPF (NONE) H Urine Yeast Few /HPF (NONE) H Allen Bliss MD March 26, 2019 19:27
[2019-03-26] MEDS: Dyna-Hex 2% Top Sol 2oz TOPIC SCH (20:10)
--- NOTE | 2019-03-26 21:17 | Nephrology Progress Note ---
Assessment/Plan Problem List: (1) Systolic heart failure (2) Dyspnea (3) Respiratory failure (4) Respiratory distress (5) Septic shock (6) Diabetes (7) CVA, old, hemiparesis (8) Hypokalemia (9) COLLIN (acute kidney injury) Plan restarted diuresis bumex , increase water flushes observe Na 149 epeat 147 d5w 50/hr, kcl with bumex Subjective ROS Limited/Unobtainable: Yes Objective Objective Last 24 Hour Vital Signs Date Time Temp Pulse Resp B/P (MAP) Pulse Ox O2 Delivery O2 Flow Rate FiO2 03/26/19 21:12 75 16 30 03/26/19 20:00 30 03/26/19 20:00 Mechanical Ventilator Mechanical Ventilator Mechanical Ventilator 03/26/19 20:00 98.1 12 114/46 (68) 100 03/26/19 20:00 76 03/26/19 19:34 75 18 100 Mechanical Ventilator 30 03/26/19 19:19 75 22 100 Mechanical Ventilator 30 03/26/19 19:15 74 19 30 03/26/19 19:00 98 14 99/41 (60) 100 03/26/19 18:00 74 14 119/45 (69) 100 03/26/19 17:00 67 12 88/35 (52) 100 03/26/19 16:56 67 12 30 03/26/19 16:00 99.1 69 12 113/44 (67) 100 03/26/19 16:00 30 03/26/19 16:00 Mechanical Ventilator Mechanical Ventilator Mechanical Ventilator 03/26/19 16:00 68 03/26/19 15:13 71 12 30 03/26/19 15:13 71 12 100 Mechanical Ventilator 30 03/26/19 15:05 72 12 100 Mechanical Ventilator 30 03/26/19 15:00 69 16 118/50 (72) 100 03/26/19 14:00 77 15 128/58 (81) 100 03/26/19 13:00 77 15 95/43 (60) 99 03/26/19 12:43 78 16 30 03/26/19 12:00 30 03/26/19 12:00 100.1 78 14 112/49 (70) 100 03/26/19 12:00 78 03/26/19 12:00 Mechanical Ventilator Mechanical Ventilator Mechanical Ventilator 03/26/19 11:00 78 15 103/43 (63) 100 03/26/19 10:41 85 13 100 Mechanical Ventilator 30 03/26/19 10:31 78 13 100 Mechanical Ventilator 30 03/26/19 10:30 79 15 30 03/26/19 10:05 79 16 91/35 (53) 100 03/26/19 10:00 78 16 88/37 (54) 100 03/26/19 09:16 74 13 30 03/26/19 09:00 74 16 120/50 (73) 100 03/26/19 08:23 108/43 03/26/19 08:00 30 03/26/19 08:00 73 03/26/19 08:00 Mechanical Ventilator Mechanical Ventilator Mechanical Ventilator 03/26/19 08:00 99.7 76 6 122/51 (74) 99 03/26/19 07:16 79 20 100 Mechanical Ventilator 30 03/26/19 07:05 73 12 30 03/26/19 07:05 73 12 100 Mechanical Ventilator 30 03/26/19 07:00 73 12 118/43 (68) 78 03/26/19 06:00 75 16 115/48 (70) 100 03/26/19 05:08 74 12 30 03/26/19 05:00 74 16 109/44 (65) 100 03/26/19 04:00 79 03/26/19 04:00 98.8 81 19 131/55 (80) 100 03/26/19 04:00 Mechanical Ventilator Mechanical Ventilator Mechanical Ventilator 03/26/19 04:00 30 03/26/19 03:34 83 16 100 Mechanical Ventilator 30 03/26/19 03:24 77 13 100 Mechanical Ventilator 30 03/26/19 03:23 77 13 30 03/26/19 03:00 79 13 116/57 (76) 100 03/26/19 02:00 77 16 115/52 (73) 100 03/26/19 01:00 83 15 138/56 (83) 100 03/26/19 00:58 79 14 35 03/26/19 00:00 35 03/26/19 00:00 79 03/26/19 00:00 Mechanical Ventilator Mechanical Ventilator Mechanical Ventilator 03/26/19 00:00 98.3 82 17 125/54 (77) 100 03/25/19 23:21 80 14 100 Mechanical Ventilator 35 03/25/19 23:11 78 12 100 Mechanical Ventilator 35 03/25/19 23:10 78 12 35 03/25/19 23:00 78 14 122/53 (76) 100 03/25/19 22:00 75 15 107/50 (69) 100 Intake and Output 03/25/19 03/26/19 19:00 07:00 Intake Total 770 ml 1024 ml Output Total 900 ml 730 ml Balance -130 ml 294 ml IV Total 50 ml 1024 ml Tube Feeding 720 ml Output Urine Total 900 ml 730 ml Laboratory Tests 03/26/19 04:45: White Blood Count 9.5, Red Blood Count 2.69L, Hemoglobin 8.9L, Hematocrit 27.7L , Mean Corpuscular Volume 103H, Mean Corpuscular Hemoglobin 33.0H, Mean Corpuscular Hemoglobin Concent 32.0, Red Cell Distribution Width 14.6, Platelet Count 197, Mean Platelet Volume 7.1, Neutrophils (%) (Auto) 77.7H, Lymphocytes ( %) (Auto) 13.6L, Monocytes (%) (Auto) 6.9, Eosinophils (%) (Auto) 1.3, Basophils (%) (Auto) 0.5, Sodium Level 147H, Potassium Level 3.8, Chloride Level 109H, Carbon Dioxide Level 37H, Anion Gap 2L, Blood Urea Nitrogen 21H, Creatinine 0.7, Estimat Glomerular Filtration Rate , Glucose Level 145H, Calcium Level 8.7 03/26/19 07:55: Arterial Blood pH 7.527H, Arterial Blood Partial Pressure CO2 40.1, Arterial Blood Partial Pressure O2 90.6, Arterial Blood HCO3 32.5H, Arterial Blood Oxygen Saturation 96.7, Arterial Blood Base Excess 9.0H, Jose Luis Test Positive 03/26/19 15:20: Random Amikacin Level 13.0 03/26/19 18:40: Urine Color Pale yellow, Urine Appearance Cloudy, Urine pH 5, Urine Specific [place] 1.010, Urine Protein 2+H, Urine Glucose (UA) Negative, Urine Ketones 1+H , Urine Blood 3+H, Urine Nitrite Negative, Urine Bilirubin Negative, Urine Urobilinogen Normal, Urine Leukocyte Esterase 3+H, Urine RBC 5-10H, Urine WBC 10 -15H, Urine Squamous Epithelial Cells Few, Urine Bacteria ManyH, Urine Yeast FewH Height (Feet): 5 Height (Inches): 8.00 Weight (Pounds): 174 General Appearance: lethargic EENT: other - intubated Neck: normal alignment Cardiovascular: regular rhythm Respiratory/Chest: rhonchi - bilaterally Abdomen: soft, no organomegaly Extremities: moderate edema Neurologic: motor weakness Lamberto Álvarez MD March 26, 2019 21:17
--- NOTE | 2019-03-26 23:40 | Neurology Progress Note ---
Interim History Interim History ROS Limited/Unobtainable: Yes Complaints: AMS Events: This visit was performed on March 26, 2019 Interim History No Changes to MS Visit performed with Dr. Melecio Tavarez. Objective Physical Exam Last Vital Signs Date Time Temp Pulse Resp B/P (MAP) Pulse Ox O2 Delivery O2 Flow Rate FiO2 03/26/19 23:30 72 13 100 Mechanical Ventilator 30 03/26/19 23:00 119/51 (73) 03/26/19 20:00 98.1 03/25/19 16:00 2.0 2.0 2.0 Laboratory Tests Test 03/26/19 04:45 03/26/19 07:55 03/26/19 15:20 03/26/19 18:40 White Blood Count 9.5 K/UL (4.8-10.8) Red Blood Count 2.69 M/UL (4.20-5.40) L Hemoglobin 8.9 G/DL (12.0-16.0) L Hematocrit 27.7 % (37.0-47.0) L Mean Corpuscular Volume 103 FL (80-99) H Mean Corpuscular Hemoglobin 33.0 PG (27.0-31.0) H Mean Corpuscular Hemoglobin Concent 32.0 G/DL (32.0-36.0) Red Cell Distribution Width 14.6 % (11.6-14.8) Platelet Count 197 K/UL (150-450) Mean Platelet Volume 7.1 FL (6.5-10.1) Neutrophils (%) (Auto) 77.7 % (45.0-75.0) H Lymphocytes (%) (Auto) 13.6 % (20.0-45.0) L Monocytes (%) (Auto) 6.9 % (1.0-10.0) Eosinophils (%) (Auto) 1.3 % (0.0-3.0) Basophils (%) (Auto) 0.5 % (0.0-2.0) Sodium Level 147 MMOL/L (136-145) H Potassium Level 3.8 MMOL/L (3.5-5.1) Chloride Level 109 MMOL/L (98-107) H Carbon Dioxide Level 37 MMOL/L (21-32) H Anion Gap 2 mmol/L (5-15) L Blood Urea Nitrogen 21 mg/dL (7-18) H Creatinine 0.7 MG/DL (0.55-1.30) Estimat Glomerular Filtration Rate mL/min (>60) Glucose Level 145 MG/DL (74-106) H Calcium Level 8.7 MG/DL (8.5-10.1) Arterial Blood pH 7.527 (7.350-7.450) Arterial Blood Partial Pressure CO2 40.1 mmHg (35.0-45.0) Arterial Blood Partial Pressure O2 90.6 mmHg (75.0-100.0) Arterial Blood HCO3 32.5 mmol/L (22.0-26.0) H Arterial Blood Oxygen Saturation 96.7 % (95-100) Arterial Blood Base Excess 9.0 (-2-2) H Jose Luis Test Positive Random Amikacin Level 13.0 ug/mL Urine Color Pale yellow Urine Appearance Cloudy Urine pH 5 (4.5-8.0) Urine Specific [place] 1.010 (1.005-1.035) Urine Protein 2+ (NEGATIVE) H Urine Glucose (UA) Negative (NEGATIVE) Urine Ketones 1+ (NEGATIVE) H Urine Blood 3+ (NEGATIVE) H Urine Nitrite Negative (NEGATIVE) Urine Bilirubin Negative (NEGATIVE) Urine Urobilinogen Normal MG/DL (0.0-1.0) Urine Leukocyte Esterase 3+ (NEGATIVE) H Urine RBC 5-10 /HPF (0 - 2) H Urine WBC 10-15 /HPF (0 - 2) H Urine Squamous Epithelial Cells Few /LPF (NONE/OCC) Urine Bacteria Many /HPF (NONE) H Urine Yeast Few /HPF (NONE) H General: well developed, well nourished Head: normocophalic, atraumatic Neck: no rigidity EENT: benign Neurologic Exam Mental Status: awake Cranial Nerve II: no papilledema Cranial Nerves III, IV, : PERRLA, EOMI Cranial Nerve VIII: normal hearing Cranial Nerve XII: tongue midline Motor System: other - Right sided hemiplegia with TF in leg and min withdrawal at shoulder / Left sided w/d and apparent full strength to noxious stimuli Sensory: other - Some indication of paresthesia requiring increased noxious stimuli on right side Gait: normal regular Objective Extubated yesterday, no respiratory distress- she is back to baseline MS - alert , tracking, non verbal. She is now making meaningful eye contact and tracking with her eyes. As per her granddaughter, she is now approximately back to her baseline - which was tracking people with her eyes, moving/ turning her head, she could be sounds but no formal speech. 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 Right facial weakness of whole face, including eye. Possible sensory loss on right side due to need for increased noxious stimulus to induce response. Right side plegic, with slight movement proximally > distally. Left side w/d and UE now in restraints because exhibiting full strength Impression/Recommendations Problems: (1) Acute encephalopathy Assessment & Plan: Still not following commands. As per granddaughter - she does not do this at baseline (2) Septic shock (3) Respiratory failure (4) Dementia (5) Altered level of consciousness (6) CVA, old, hemiparesis Assessment & Plan: CT Brain 03/09/19: Old left parietal and occipital infarct Moderate atrophy of the brain. 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 (7) Diabetes Status: stable, progressing, unchanged Diagnostic Impression Can consider MRI of brain now that extubated but this is not a priority study as patient is back to Baseline. Maintain Normoglycemia with ISS May start ASA HgB> 8 - dropping on CBC, track and trend Maintain normoglycemia with ISS Continue enteral feeding SBP< 140 Discussion with family regarding goals of care Recommendations Q 2 hour neuro obs Abx as needed Replete/ Correct Lytes as necessary Discuss goals of care with family Continue Phenytoin but no indication for increased dosage or addition of second line AED Prevent Delirium: PT EVal as soon as able for OOB in Chair Maintain sleep hygiene by making room dark at night and minimizing nighttime observations. Seroquel 25mg QD PRN for agitation- can be increased if necessary please avoid benzos, opioids, anticholinergic drugs if the goal of treatment is to wean- This was a critical care note. Critical care time of 40 minutes, was performed in order to assess and manage the high probability of imminent or life threatening deterioration to respiratory/neurologic function, with frequent reassessment and excludes all billable procedures. Ngozi Franklin N.P. March 26, 2019 23:40
[2019-03-27] VITALS (24 sets, daily range): BP systolic 102–151; BP diastolic 42–80
[2019-03-27] MEDS: NovoLOG Insulin Flexpen SUBQ SCH ×5 (00:03→23:53)
[2019-03-27] MEDS: Albuterol/Ipratropium 3ml neb HHN SCH ×6 (03:21→23:15)
[2019-03-27 05:36] LABS: BASOPHILS % (AUTO) 0.7 % (0.0-2.0); EOSINOPHILS % (AUTO) 7.2 % (0.0-3.0); HEMATOCRIT 27.1 % (37.0-47.0); HEMOGLOBIN 8.8 G/DL (12.0-16.0); LYMPHOCYTES % (AUTO) 25.5 % (20.0-45.0); MEAN CORPUSCULAR VOLUME 103 FL (80-99); MONOCYTES % (AUTO) 8.4 % (1.0-10.0); NEUTROPHILS % (AUTO) 58.3 % (45.0-75.0); PLATELET COUNT 171 K/UL (150-450); RED BLOOD COUNT 2.63 M/UL (4.20-5.40); RED CELL DISTRIBUTION WIDTH 15.1 % (11.6-14.8); WHITE BLOOD COUNT 7.5 K/UL (4.8-10.8)
[2019-03-27 06:00] LABS: ALANINE AMINOTRANSFERASE 13 U/L (12-78); ALBUMIN 1.9 G/DL (3.4-5.0); ALBUMIN/GLOBULIN RATIO 0.4 (1.0-2.7); ALKALINE PHOSPHATASE 101 U/L (46-116); ANION GAP 3 mmol/L (5-15); ASPARTATE AMINO TRANSFERASE 31 U/L (15-37); BILIRUBIN,TOTAL 0.2 MG/DL (0.2-1.0); BLOOD UREA NITROGEN 22 mg/dL (7-18); CALCIUM 8.8 MG/DL (8.5-10.1); CARBON DIOXIDE 34 MMOL/L (21-32); CHLORIDE 106 MMOL/L (98-107); CREATININE 0.8 MG/DL (0.55-1.30); POTASSIUM 4.3 MMOL/L (3.5-5.1); SODIUM 143 MMOL/L (136-145)
[2019-03-27] MEDS: Phenytoin Susp 100mg/4ml GT SCH ×2 (09:20→20:41)
[2019-03-27] MEDS: Lisinopril 10mg tab GT SCH (09:22)
[2019-03-27] MEDS: Bumetanide 2.5mg/10ml Inj IVP SCH ×2 (09:22→17:37)
[2019-03-27] MEDS ORDERED: NS 275ml ONE ×2 (09:49→10:08)
[2019-03-27] MEDS ORDERED: Tubing IV Secondary IV ONE (10:08)
--- NOTE | 2019-03-27 11:28 | Nephrology Progress Note ---
Assessment/Plan Problem List: (1) Systolic heart failure (2) Dyspnea (3) Respiratory failure (4) Respiratory distress (5) Septic shock (6) Diabetes (7) CVA, old, hemiparesis (8) Hypokalemia (9) COLLIN (acute kidney injury) Plan restarted diuresis bumex , increase water flushes observe Na 149 epeat 147 now 143 d5w 30/hr, kcl with bumex Subjective ROS Limited/Unobtainable: Yes Objective Objective Last 24 Hour Vital Signs Date Time Temp Pulse Resp B/P (MAP) Pulse Ox O2 Delivery O2 Flow Rate FiO2 03/27/19 11:16 78 20 100 Mechanical Ventilator 30 03/27/19 11:08 78 20 100 Mechanical Ventilator 30 03/27/19 11:08 78 18 30 03/27/19 11:00 82 28 125/78 (94) 100 03/27/19 10:00 76 19 151/60 (90) 100 03/27/19 09:22 71 18 30 03/27/19 09:22 113/47 03/27/19 09:00 72 9 110/43 (65) 100 03/27/19 08:00 98.8 76 17 137/52 (80) 100 03/27/19 08:00 74 03/27/19 08:00 30 03/27/19 08:00 Mechanical Ventilator Mechanical Ventilator Mechanical Ventilator 03/27/19 07:30 75 20 100 Mechanical Ventilator 30 03/27/19 07:21 74 20 30 03/27/19 07:21 74 20 100 Mechanical Ventilator 30 03/27/19 07:00 78 14 143/80 (101) 100 03/27/19 06:00 77 14 140/53 (82) 100 03/27/19 05:10 73 17 30 03/27/19 05:00 76 14 102/74 (83) 100 03/27/19 04:00 98.4 76 14 148/56 (86) 100 03/27/19 04:00 30 03/27/19 04:00 Mechanical Ventilator Mechanical Ventilator Mechanical Ventilator 03/27/19 04:00 76 03/27/19 03:32 81 24 100 Mechanical Ventilator 30 03/27/19 03:21 70 21 100 Mechanical Ventilator 30 03/27/19 03:20 70 21 30 03/27/19 03:00 74 14 127/54 (78) 100 03/27/19 02:00 76 14 129/64 (85) 100 03/27/19 01:13 69 14 30 03/27/19 01:00 71 12 103/42 (62) 100 03/27/19 00:00 97.9 73 12 128/51 (76) 100 03/27/19 00:00 69 03/27/19 00:00 30 03/27/19 00:00 Mechanical Ventilator Mechanical Ventilator Mechanical Ventilator 03/26/19 23:30 72 13 100 Mechanical Ventilator 30 03/26/19 23:22 70 14 100 Mechanical Ventilator 30 03/26/19 23:21 70 12 30 03/26/19 23:00 67 12 119/51 (73) 100 03/26/19 22:00 72 12 128/53 (78) 100 03/26/19 21:12 75 16 30 03/26/19 21:00 71 12 126/59 (81) 100 03/26/19 20:00 30 03/26/19 20:00 Mechanical Ventilator Mechanical Ventilator Mechanical Ventilator 03/26/19 20:00 98.1 76 12 114/46 (68) 100 03/26/19 20:00 76 03/26/19 19:34 75 18 100 Mechanical Ventilator 30 03/26/19 19:19 75 22 100 Mechanical Ventilator 30 03/26/19 19:15 74 19 30 03/26/19 19:00 98 14 99/41 (60) 100 03/26/19 18:00 74 14 119/45 (69) 100 03/26/19 17:00 67 12 88/35 (52) 100 03/26/19 16:56 67 12 30 03/26/19 16:00 99.1 69 12 113/44 (67) 100 03/26/19 16:00 30 03/26/19 16:00 Mechanical Ventilator Mechanical Ventilator Mechanical Ventilator 03/26/19 16:00 68 03/26/19 15:13 71 12 30 03/26/19 15:13 71 12 100 Mechanical Ventilator 30 03/26/19 15:05 72 12 100 Mechanical Ventilator 30 03/26/19 15:00 69 16 118/50 (72) 100 03/26/19 14:00 77 15 128/58 (81) 100 03/26/19 13:00 77 15 95/43 (60) 99 03/26/19 12:43 78 16 30 03/26/19 12:00 30 03/26/19 12:00 100.1 78 14 112/49 (70) 100 03/26/19 12:00 78 03/26/19 12:00 Mechanical Ventilator Mechanical Ventilator Mechanical Ventilator Intake and Output 03/26/19 03/27/19 19:00 07:00 Intake Total 1734 ml 1345 ml Output Total 730 ml 730 ml Balance 1004 ml 615 ml Free Water 400 ml IV Total 844 ml 805 ml Tube Feeding 490 ml 540 ml Output Urine Total 730 ml 730 ml Laboratory Tests 03/26/19 15:20: Random Amikacin Level 13.0 03/26/19 18:40: Urine Color Pale yellow, Urine Appearance Cloudy, Urine pH 5, Urine Specific [place] 1.010, Urine Protein 2+H, Urine Glucose (UA) Negative, Urine Ketones 1+H , Urine Blood 3+H, Urine Nitrite Negative, Urine Bilirubin Negative, Urine Urobilinogen Normal, Urine Leukocyte Esterase 3+H, Urine RBC 5-10H, Urine WBC 10 -15H, Urine Squamous Epithelial Cells Few, Urine Bacteria ManyH, Urine Yeast FewH 03/27/19 02:05: Vancomycin Level Trough 21.3H 03/27/19 04:45: White Blood Count 7.5, Red Blood Count 2.63L, Hemoglobin 8.8L, Hematocrit 27.1L , Mean Corpuscular Volume 103H, Mean Corpuscular Hemoglobin 33.6H, Mean Corpuscular Hemoglobin Concent 32.6, Red Cell Distribution Width 15.1H, Platelet Count 171, Mean Platelet Volume 7.1, Neutrophils (%) (Auto) 58.3, Lymphocytes (%) (Auto) 25.5, Monocytes (%) (Auto) 8.4, Eosinophils (%) (Auto) 7.2H, Basophils (%) (Auto) 0.7, Sodium Level 143, Potassium Level 4.3, Chloride Level 106, Carbon Dioxide Level 34H, Anion Gap 3L, Blood Urea Nitrogen 22H, Creatinine 0.8, Estimat Glomerular Filtration Rate , Glucose Level 162H, Calcium Level 8.8, Total Bilirubin 0.2, Aspartate Amino Transf (AST/SGOT) 31, Alanine Aminotransferase (ALT/SGPT) 13, Alkaline Phosphatase 101, Total Protein 6.8, Albumin 1.9L, Globulin 4.9, Albumin/Globulin Ratio 0.4L Height (Feet): 5 Height (Inches): 8.00 Weight (Pounds): 173 General Appearance: lethargic EENT: other - intubated Neck: normal alignment Cardiovascular: regular rhythm Respiratory/Chest: rhonchi - bilaterally Abdomen: non tender Extremities: trace edema Neurologic: unresponsive Lamberto Álvarez MD Mar 27, 2019 11:28
[2019-03-27] MEDS: Vancomycin 750mg/NS 275ml IVPB SCH ×2 (12:23)
--- NOTE | 2019-03-27 13:00 | Pulmonolgy Critical Care Note ---
Critical Care - Asmt/Plan Assessment/Plan: 1. Acute respiratory failure. 2. Severe dehydration with shock. 3. Severe hypernatremia. 4. Multi-infarct dementia. 5. Possible acute myocardial infarction. 6. History of heart failure. 7. History of atrial fibrillation. 8. Gastric tube with dysphagia. 9. History of chronic obstructive pulmonary disease. 10. History of seizures with therapeutic Dilantin level. 11. History of hypertension. 12. Hyperlipidemia. 13. Diabetes. 14. 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 HELPER bacteremia plan for terminal extubation next week comfort measures pain control wound care diuresis abx fu labs and cxr prn disc w RN cont present rx Respiratory: CXR Cardiac: continue to monitor HR/BP Infectious Disease: check cultures Prophylaxis: Protonix Notes Reviewed: gaming director, cardio Discussed with: nurses Critical Care - Objective Last 24 Hour Vital Signs Date Time Temp Pulse Resp B/P (MAP) Pulse Ox O2 Delivery O2 Flow Rate FiO2 03/27/19 11:16 78 20 100 Mechanical Ventilator 30 03/27/19 11:08 78 20 100 Mechanical Ventilator 30 03/27/19 11:08 78 18 30 03/27/19 11:00 82 28 125/78 (94) 100 03/27/19 10:00 76 19 151/60 (90) 100 03/27/19 09:22 71 18 30 03/27/19 09:22 113/47 03/27/19 09:00 72 9 110/43 (65) 100 03/27/19 08:00 98.8 76 17 137/52 (80) 100 03/27/19 08:00 74 03/27/19 08:00 30 03/27/19 08:00 Mechanical Ventilator Mechanical Ventilator Mechanical Ventilator 03/27/19 07:30 75 20 100 Mechanical Ventilator 30 03/27/19 07:21 74 20 30 03/27/19 07:21 74 20 100 Mechanical Ventilator 30 03/27/19 07:00 78 14 143/80 (101) 100 03/27/19 06:00 77 14 140/53 (82) 100 03/27/19 05:10 73 17 30 03/27/19 05:00 76 14 102/74 (83) 100 03/27/19 04:00 98.4 76 14 148/56 (86) 100 03/27/19 04:00 30 03/27/19 04:00 Mechanical Ventilator Mechanical Ventilator Mechanical Ventilator 03/27/19 04:00 76 03/27/19 03:32 81 24 100 Mechanical Ventilator 30 03/27/19 03:21 70 21 100 Mechanical Ventilator 30 03/27/19 03:20 70 21 30 03/27/19 03:00 74 14 127/54 (78) 100 03/27/19 02:00 76 14 129/64 (85) 100 03/27/19 01:13 69 14 30 03/27/19 01:00 71 12 103/42 (62) 100 03/27/19 00:00 97.9 73 12 128/51 (76) 100 03/27/19 00:00 69 03/27/19 00:00 30 03/27/19 00:00 Mechanical Ventilator Mechanical Ventilator Mechanical Ventilator 03/26/19 23:30 72 13 100 Mechanical Ventilator 30 03/26/19 23:22 70 14 100 Mechanical Ventilator 30 03/26/19 23:21 70 12 30 03/26/19 23:00 67 12 119/51 (73) 100 03/26/19 22:00 72 12 128/53 (78) 100 03/26/19 21:12 75 16 30 03/26/19 21:00 71 12 126/59 (81) 100 03/26/19 20:00 30 03/26/19 20:00 Mechanical Ventilator Mechanical Ventilator Mechanical Ventilator 03/26/19 20:00 98.1 76 12 114/46 (68) 100 03/26/19 20:00 76 03/26/19 19:34 75 18 100 Mechanical Ventilator 30 03/26/19 19:19 75 22 100 Mechanical Ventilator 30 03/26/19 19:15 74 19 30 03/26/19 19:00 98 14 99/41 (60) 100 03/26/19 18:00 74 14 119/45 (69) 100 03/26/19 17:00 67 12 88/35 (52) 100 03/26/19 16:56 67 12 30 03/26/19 16:00 99.1 69 12 113/44 (67) 100 03/26/19 16:00 30 03/26/19 16:00 Mechanical Ventilator Mechanical Ventilator Mechanical Ventilator 03/26/19 16:00 68 03/26/19 15:13 71 12 30 03/26/19 15:13 71 12 100 Mechanical Ventilator 30 03/26/19 15:05 72 12 100 Mechanical Ventilator 30 03/26/19 15:00 69 16 118/50 (72) 100 03/26/19 14:00 77 15 128/58 (81) 100 03/26/19 13:00 77 15 95/43 (60) 99 Status: somnolent Lungs: rales, rhonchi Heart: HR/BP stable Abdomen: soft, active bowel sounds Extremities: edema Micro: Microbiology Date/Time Source Procedure Growth Status 03/25/19 19:00 Sputum Induced Gram Stain - Final Resulted 03/25/19 19:00 Sputum Culture - Preliminary Gram Negative Víctor Resulted 03/26/19 18:40 Indwelling Cath Urine Culture - Preliminary NO GROWTH Resulted Accucheck: 193 Critical Care - Subjective ROS Limited/Unobtainable: Yes Condition: critical FI02: 30 Vent Support Breath Rate: 12 Vent Support Mode: AC Vent Tidal Volume: 450 Sputum Amount: Small PEEP: 5.0 PIP: 20 I&O: Intake and Output 03/26/19 03/27/19 19:00 07:00 Intake Total 1734 ml 1345 ml Output Total 730 ml 730 ml Balance 1004 ml 615 ml Free Water 400 ml IV Total 844 ml 805 ml Tube Feeding 490 ml 540 ml Output Urine Total 730 ml 730 ml Subjective: remains on the ventt more awake, tracks some what but does not follow commands no cp nv or bleeding tolerating tf no pressors no new cxr family agreed to terminal extubation next week no trach or peg ET-Tube: 7.5 ET Position: 21 Labs: Current Medications Medications (Trade) Dose Ordered Sig/Singh Route PRN Reason Start Time Stop Time Status Last Admin Dose Admin Acetaminophen (Tylenol) 650 mg Q4H PRN GT Mild Pain/Temp > 100.5 03/09/19 20:30 04/08/19 20:29 03/26/19 12:18 Albuterol/ Ipratropium (Albuterol/ Ipratropium) 3 ml Q4HRT HHN 03/25/19 19:00 03/30/19 18:59 03/27/19 11:08 Amikacin Protocol (Amikacin pharmacy to dose) 1 ea DAILY PRN MISC Per rx protocol 03/24/19 11:30 04/23/19 11:29 Amikacin Sulfate 1000 mg/Sodium Chloride 114 ml @ 228 mls/hr Q36H IV 03/26/19 02:00 04/02/19 01:59 03/26/19 02:04 Bumetanide (Bumex) 1 mg BID IVP 03/24/19 12:30 04/23/19 12:29 03/27/19 09:22 Cefepime HCl 1 gm/ Dextrose 50 ml @ 100 mls/hr Q24H IVPB 03/25/19 17:00 04/01/19 16:59 03/26/19 17:22 Chlorhexidine Gluconate (Azra-Hex 2%) 1 applic DAILY@2000 TOPIC 03/10/19 20:00 04/09/19 19:59 03/26/19 20:10 Dextrose (Dextrose 50%) 25 ml Q30M PRN IV Hypoglycemia 03/09/19 21:00 04/08/19 20:59 Dextrose (Dextrose 50%) 50 ml Q30M PRN IV Hypoglycemia 03/09/19 21:00 04/08/19 20:59 Insulin Aspart (NovoLOG) EVERY 6 HOURS SUBQ 03/10/19 00:00 04/09/19 00:00 03/27/19 12:37 Lansoprazole (Prevacid) 30 mg DAILY GT 03/25/19 09:00 04/24/19 08:59 03/27/19 09:21 Lisinopril (Zestril) 10 mg DAILY GT 03/25/19 09:00 04/19/19 08:59 03/27/19 09:22 Metronidazole 100 ml @ 100 mls/hr Q8HR IVPB 03/25/19 14:00 04/01/19 13:59 03/27/19 05:58 Phenytoin (Dilantin) 125 mg Q12HR GT 03/09/19 21:00 04/08/19 20:59 03/27/19 09:20 Potassium Chloride 40 meq/ Dextrose 1,020 ml @ 30 mls/hr Q24H IV 03/27/19 11:37 04/26/19 11:36 03/27/19 12:22 Potassium Chloride (K-Dur) 40 meq DAILY GT 03/26/19 21:15 04/25/19 21:14 03/27/19 09:20 Vancomycin HCl (Vanco rx to dose) 1 ea DAILY PRN MISC Per rx protocol 03/24/19 11:30 04/23/19 11:29 Vancomycin HCl 750 mg/Sodium Chloride 275 ml @ 183.333 mls/hr Q24H IVPB 03/27/19 12:00 04/01/19 11:59 03/27/19 12:23 Laboratory Tests Test 03/26/19 15:20 03/26/19 18:40 03/27/19 02:05 03/27/19 04:45 Random Amikacin Level 13.0 ug/mL Urine Color Pale yellow Urine Appearance Cloudy Urine pH 5 (4.5-8.0) Urine Specific [place] 1.010 (1.005-1.035) Urine Protein 2+ (NEGATIVE) H Urine Glucose (UA) Negative (NEGATIVE) Urine Ketones 1+ (NEGATIVE) H Urine Blood 3+ (NEGATIVE) H Urine Nitrite Negative (NEGATIVE) Urine Bilirubin Negative (NEGATIVE) Urine Urobilinogen Normal MG/DL (0.0-1.0) Urine Leukocyte Esterase 3+ (NEGATIVE) H Urine RBC 5-10 /HPF (0 - 2) H Urine WBC 10-15 /HPF (0 - 2) H Urine Squamous Epithelial Cells Few /LPF (NONE/OCC) Urine Bacteria Many /HPF (NONE) H Urine Yeast Few /HPF (NONE) H Vancomycin Level Trough 21.3 ug/mL (5.0-12.0) H White Blood Count 7.5 K/UL (4.8-10.8) Red Blood Count 2.63 M/UL (4.20-5.40) L Hemoglobin 8.8 G/DL (12.0-16.0) L Hematocrit 27.1 % (37.0-47.0) L Mean Corpuscular Volume 103 FL (80-99) H Mean Corpuscular Hemoglobin 33.6 PG (27.0-31.0) H Mean Corpuscular Hemoglobin Concent 32.6 G/DL (32.0-36.0) Red Cell Distribution Width 15.1 % (11.6-14.8) H Platelet Count 171 K/UL (150-450) Mean Platelet Volume 7.1 FL (6.5-10.1) Neutrophils (%) (Auto) 58.3 % (45.0-75.0) Lymphocytes (%) (Auto) 25.5 % (20.0-45.0) Monocytes (%) (Auto) 8.4 % (1.0-10.0) Eosinophils (%) (Auto) 7.2 % (0.0-3.0) H Basophils (%) (Auto) 0.7 % (0.0-2.0) Sodium Level 143 MMOL/L (136-145) Potassium Level 4.3 MMOL/L (3.5-5.1) Chloride Level 106 MMOL/L (98-107) Carbon Dioxide Level 34 MMOL/L (21-32) H Anion Gap 3 mmol/L (5-15) L Blood Urea Nitrogen 22 mg/dL (7-18) H Creatinine 0.8 MG/DL (0.55-1.30) Estimat Glomerular Filtration Rate mL/min (>60) Glucose Level 162 MG/DL (74-106) H Calcium Level 8.8 MG/DL (8.5-10.1) Total Bilirubin 0.2 MG/DL (0.2-1.0) Aspartate Amino Transf (AST/SGOT) 31 U/L (15-37) Alanine Aminotransferase (ALT/SGPT) 13 U/L (12-78) Alkaline Phosphatase 101 U/L (46-116) Total Protein 6.8 G/DL (6.4-8.2) Albumin 1.9 G/DL (3.4-5.0) L Globulin 4.9 g/dL Albumin/Globulin Ratio 0.4 (1.0-2.7) L Nia Rosa DO Mar 27, 2019 13:00
[2019-03-27] MEDS: Amikacin 1,000 MG in NS 110 ML IV SCH (14:32)
--- NOTE | 2019-03-27 18:07 | Cardiology Progress Note ---
Assessment/Plan Assessment/Plan respiratory failure, failed extubation, tentative terminal extubation, continue monitor lytes and continue diuresis Subjective Subjective the patient is unresponsive and intubated, Objective Last 24 Hour Vital Signs Date Time Temp Pulse Resp B/P (MAP) Pulse Ox O2 Delivery O2 Flow Rate FiO2 03/27/19 17:00 76 18 123/58 (79) 100 03/27/19 16:56 75 16 30 03/27/19 16:00 70 03/27/19 16:00 30 03/27/19 16:00 99.3 71 16 117/48 (71) 100 03/27/19 16:00 Mechanical Ventilator Mechanical Ventilator Mechanical Ventilator 03/27/19 15:18 74 20 100 Mechanical Ventilator 30 03/27/19 15:10 73 14 100 Mechanical Ventilator 30 03/27/19 15:10 72 14 30 03/27/19 15:00 71 18 131/52 (78) 100 03/27/19 14:00 99.1 65 13 127/56 (79) 100 03/27/19 13:10 Mechanical Ventilator 03/27/19 13:06 76 18 30 03/27/19 13:00 77 21 134/61 (85) 100 03/27/19 12:00 30 03/27/19 12:00 75 16 124/56 (78) 100 03/27/19 12:00 Mechanical Ventilator Mechanical Ventilator Mechanical Ventilator 03/27/19 12:00 77 03/27/19 11:16 78 20 100 Mechanical Ventilator 30 03/27/19 11:08 78 20 100 Mechanical Ventilator 30 03/27/19 11:08 78 18 30 03/27/19 11:00 82 28 125/78 (94) 100 03/27/19 10:00 76 19 151/60 (90) 100 03/27/19 09:22 71 18 30 03/27/19 09:22 113/47 03/27/19 09:00 72 9 110/43 (65) 100 03/27/19 08:00 98.8 76 17 137/52 (80) 100 03/27/19 08:00 74 03/27/19 08:00 30 03/27/19 08:00 Mechanical Ventilator Mechanical Ventilator Mechanical Ventilator 03/27/19 07:30 75 20 100 Mechanical Ventilator 30 03/27/19 07:21 74 20 30 03/27/19 07:21 74 20 100 Mechanical Ventilator 30 03/27/19 07:00 78 14 143/80 (101) 100 03/27/19 06:00 77 14 140/53 (82) 100 03/27/19 05:10 73 17 30 03/27/19 05:00 76 14 102/74 (83) 100 03/27/19 04:00 98.4 76 14 148/56 (86) 100 03/27/19 04:00 30 03/27/19 04:00 Mechanical Ventilator Mechanical Ventilator Mechanical Ventilator 03/27/19 04:00 76 03/27/19 03:32 81 24 100 Mechanical Ventilator 30 03/27/19 03:21 70 21 100 Mechanical Ventilator 30 03/27/19 03:20 70 21 30 03/27/19 03:00 74 14 127/54 (78) 100 03/27/19 02:00 76 14 129/64 (85) 100 03/27/19 01:13 69 14 30 03/27/19 01:00 71 12 103/42 (62) 100 03/27/19 00:00 97.9 73 12 128/51 (76) 100 03/27/19 00:00 69 03/27/19 00:00 30 03/27/19 00:00 Mechanical Ventilator Mechanical Ventilator Mechanical Ventilator 03/26/19 23:30 72 13 100 Mechanical Ventilator 30 03/26/19 23:22 70 14 100 Mechanical Ventilator 30 03/26/19 23:21 70 12 30 03/26/19 23:00 67 12 119/51 (73) 100 03/26/19 22:00 72 12 128/53 (78) 100 03/26/19 21:12 75 16 30 03/26/19 21:00 71 12 126/59 (81) 100 03/26/19 20:00 30 03/26/19 20:00 Mechanical Ventilator Mechanical Ventilator Mechanical Ventilator 03/26/19 20:00 98.1 76 12 114/46 (68) 100 03/26/19 20:00 76 03/26/19 19:34 75 18 100 Mechanical Ventilator 30 03/26/19 19:19 75 22 100 Mechanical Ventilator 30 03/26/19 19:15 74 19 30 03/26/19 19:00 98 14 99/41 (60) 100 General Appearance: on vent, other - very lethargic EENT: PERRL/EOMI Neck: no JVD Rhythm: NSR Cardiovascular: regular rhythm Respiratory/Chest: crackles/rales Abdomen: non tender Extremities: no swelling Intake and Output 03/26/19 03/27/19 19:00 07:00 Intake Total 1734 ml 1345 ml Output Total 730 ml 730 ml Balance 1004 ml 615 ml Free Water 400 ml IV Total 844 ml 805 ml Tube Feeding 490 ml 540 ml Output Urine Total 730 ml 730 ml Laboratory Tests Test 03/26/19 18:40 03/27/19 02:05 03/27/19 04:45 Urine Color Pale yellow Urine Appearance Cloudy Urine pH 5 (4.5-8.0) Urine Specific [place] 1.010 (1.005-1.035) Urine Protein 2+ (NEGATIVE) H Urine Glucose (UA) Negative (NEGATIVE) Urine Ketones 1+ (NEGATIVE) H Urine Blood 3+ (NEGATIVE) H Urine Nitrite Negative (NEGATIVE) Urine Bilirubin Negative (NEGATIVE) Urine Urobilinogen Normal MG/DL (0.0-1.0) Urine Leukocyte Esterase 3+ (NEGATIVE) H Urine RBC 5-10 /HPF (0 - 2) H Urine WBC 10-15 /HPF (0 - 2) H Urine Squamous Epithelial Cells Few /LPF (NONE/OCC) Urine Bacteria Many /HPF (NONE) H Urine Yeast Few /HPF (NONE) H Vancomycin Level Trough 21.3 ug/mL (5.0-12.0) H White Blood Count 7.5 K/UL (4.8-10.8) Red Blood Count 2.63 M/UL (4.20-5.40) L Hemoglobin 8.8 G/DL (12.0-16.0) L Hematocrit 27.1 % (37.0-47.0) L Mean Corpuscular Volume 103 FL (80-99) H Mean Corpuscular Hemoglobin 33.6 PG (27.0-31.0) H Mean Corpuscular Hemoglobin Concent 32.6 G/DL (32.0-36.0) Red Cell Distribution Width 15.1 % (11.6-14.8) H Platelet Count 171 K/UL (150-450) Mean Platelet Volume 7.1 FL (6.5-10.1) Neutrophils (%) (Auto) 58.3 % (45.0-75.0) Lymphocytes (%) (Auto) 25.5 % (20.0-45.0) Monocytes (%) (Auto) 8.4 % (1.0-10.0) Eosinophils (%) (Auto) 7.2 % (0.0-3.0) H Basophils (%) (Auto) 0.7 % (0.0-2.0) Sodium Level 143 MMOL/L (136-145) Potassium Level 4.3 MMOL/L (3.5-5.1) Chloride Level 106 MMOL/L (98-107) Carbon Dioxide Level 34 MMOL/L (21-32) H Anion Gap 3 mmol/L (5-15) L Blood Urea Nitrogen 22 mg/dL (7-18) H Creatinine 0.8 MG/DL (0.55-1.30) Estimat Glomerular Filtration Rate mL/min (>60) Glucose Level 162 MG/DL (74-106) H Calcium Level 8.8 MG/DL (8.5-10.1) Total Bilirubin 0.2 MG/DL (0.2-1.0) Aspartate Amino Transf (AST/SGOT) 31 U/L (15-37) Alanine Aminotransferase (ALT/SGPT) 13 U/L (12-78) Alkaline Phosphatase 101 U/L (46-116) Total Protein 6.8 G/DL (6.4-8.2) Albumin 1.9 G/DL (3.4-5.0) L Globulin 4.9 g/dL Albumin/Globulin Ratio 0.4 (1.0-2.7) L Microbiology Date/Time Source Procedure Growth Status 03/25/19 19:00 Sputum Induced Gram Stain - Final Resulted 03/25/19 19:00 Sputum Culture - Preliminary Gram Negative Víctor Resulted 03/26/19 18:40 Indwelling Cath Urine Culture - Preliminary NO GROWTH Resulted Carlotta Rick MD Mar 27, 2019 18:07
[2019-03-27] MEDS: Dyna-Hex 2% Top Sol 2oz TOPIC SCH (20:41)
[2019-03-28] VITALS (24 sets, daily range): BP systolic 107–157; BP diastolic 46–67
[2019-03-28] MEDS: Albuterol/Ipratropium 3ml neb HHN SCH ×6 (03:37→23:29)
[2019-03-28] MEDS: NovoLOG Insulin Flexpen SUBQ SCH ×4 (06:26→23:23)
[2019-03-28 06:44] LABS: ANION GAP 4 mmol/L (5-15); BLOOD UREA NITROGEN 17 mg/dL (7-18); CALCIUM 8.5 MG/DL (8.5-10.1); CARBON DIOXIDE 34 MMOL/L (21-32); CHLORIDE 107 MMOL/L (98-107); CREATININE 0.7 MG/DL (0.55-1.30); POTASSIUM 4.1 MMOL/L (3.5-5.1); SODIUM 145 MMOL/L (136-145)
[2019-03-28 07:48] LABS: BASOPHILS % (AUTO) 0.9 % (0.0-2.0); HEMATOCRIT 27.3 % (37.0-47.0); HEMOGLOBIN 9.2 G/DL (12.0-16.0); MEAN CORPUSCULAR VOLUME 101 FL (80-99); MONOCYTES % (AUTO) 8.5 % (1.0-10.0); NEUTROPHILS % (AUTO) 60.6 % (45.0-75.0); PLATELET COUNT 138 K/UL (150-450); RED BLOOD COUNT 2.71 M/UL (4.20-5.40); RED CELL DISTRIBUTION WIDTH 14.2 % (11.6-14.8); WHITE BLOOD COUNT 7.5 K/UL (4.8-10.8)
[2019-03-28] MEDS: Lisinopril 10mg tab GT SCH (08:22)
[2019-03-28] MEDS: Phenytoin Susp 100mg/4ml GT SCH ×2 (08:22→21:27)
[2019-03-28] MEDS: Bumetanide 2.5mg/10ml Inj IVP SCH ×2 (08:23→17:10)
--- NOTE | 2019-03-28 08:31 | Diagnostic Imaging Report ---
EXAM: XR Chest, 1 View CLINICAL HISTORY: INFECT TECHNIQUE: Frontal view of the chest. COMPARISON: Chest x-ray 03/24/19 and 03/25/19 FINDINGS: Lungs: Increasing right lower lung airspace opacity. Similar mild vascular congestion. Pleural space: Slightly worsening small right pleural effusion and probable tiny left pleural effusion. No pneumothorax. Heart: Unremarkable. No cardiomegaly. Mediastinum: Unremarkable. Bones/joints: Degenerative changes of the spine. Tubes, lines and devices: Stable endotracheal tube. Stable left PICC line. IMPRESSION: 1. Slightly worsening small right pleural effusion and probable tiny left pleural effusion. 2. Increasing right lower lung airspace opacity. Similar mild vascular congestion.
--- NOTE | 2019-03-28 09:12 | Pulmonolgy Critical Care Note ---
Critical Care - Asmt/Plan Assessment/Plan: 1. Acute respiratory failure. 2. Severe dehydration with shock. 3. Severe hypernatremia. 4. Multi-infarct dementia. 5. Possible acute myocardial infarction. 6. History of heart failure. 7. History of atrial fibrillation. 8. Gastric tube with dysphagia. 9. History of chronic obstructive pulmonary disease. 10. History of seizures with therapeutic Dilantin level. 11. History of hypertension. 12. Hyperlipidemia. 13. Diabetes. 14. Sepsis - [employer] bacteremia plan for terminal extubation next week comfort measures pain control wound care diuresis abx fu labs and cxr prn disc w RN cont present rx Respiratory: CXR Cardiac: continue to monitor HR/BP, d/c surveillance system monitor Disposition: keep in ICU Time Spent (Minutes): 40 Notes Reviewed: nursing home physician, cardio Critical Care - Objective Last 24 Hour Vital Signs Date Time Temp Pulse Resp B/P (MAP) Pulse Ox O2 Delivery O2 Flow Rate FiO2 03/28/19 09:05 76 19 30 03/28/19 08:22 127/86 03/28/19 07:23 76 18 100 Mechanical Ventilator 30 03/28/19 07:13 73 17 100 Mechanical Ventilator 30 03/28/19 07:12 73 17 30 03/28/19 07:00 74 20 147/56 (86) 100 03/28/19 06:00 75 20 137/48 (77) 100 03/28/19 05:03 83 21 30 03/28/19 05:00 83 26 157/63 (94) 100 03/28/19 04:00 74 03/28/19 04:00 98.0 80 17 150/60 (90) 100 03/28/19 04:00 Mechanical Ventilator Mechanical Ventilator Mechanical Ventilator 03/28/19 04:00 30 03/28/19 03:37 86 23 100 Mechanical Ventilator 30 03/28/19 03:30 85 25 30 03/28/19 03:27 84 21 98 Mechanical Ventilator 30 03/28/19 03:00 77 23 146/56 (86) 100 03/28/19 02:00 80 21 155/61 (92) 99 03/28/19 01:30 78 17 30 03/28/19 01:00 68 17 141/53 (82) 100 03/28/19 00:00 30 03/28/19 00:00 71 03/28/19 00:00 Mechanical Ventilator Mechanical Ventilator Mechanical Ventilator 03/28/19 00:00 98.9 72 17 151/60 (90) 100 03/27/19 23:18 73 18 100 Mechanical Ventilator 30 03/27/19 23:15 71 14 30 03/27/19 23:10 71 14 98 Mechanical Ventilator 30 03/27/19 23:00 71 14 131/54 (79) 100 03/27/19 22:00 74 19 130/61 (84) 100 03/27/19 21:30 70 16 30 03/27/19 21:00 77 18 144/66 (92) 100 03/27/19 20:00 30 03/27/19 20:00 Mechanical Ventilator Mechanical Ventilator Mechanical Ventilator 03/27/19 20:00 98.7 73 19 132/54 (80) 100 03/27/19 20:00 78 20 100 Mechanical Ventilator 30 03/27/19 20:00 77 03/27/19 19:50 76 20 99 Mechanical Ventilator 30 03/27/19 19:30 73 14 30 03/27/19 19:00 75 19 140/62 (88) 100 03/27/19 18:00 76 12 144/58 (86) 100 03/27/19 17:00 76 18 123/58 (79) 100 03/27/19 16:56 75 16 30 03/27/19 16:00 70 03/27/19 16:00 30 03/27/19 16:00 99.3 71 16 117/48 (71) 100 03/27/19 16:00 Mechanical Ventilator Mechanical Ventilator Mechanical Ventilator 03/27/19 15:18 74 20 100 Mechanical Ventilator 30 03/27/19 15:10 73 14 100 Mechanical Ventilator 30 03/27/19 15:10 72 14 30 03/27/19 15:00 71 18 131/52 (78) 100 03/27/19 14:00 99.1 65 13 127/56 (79) 100 03/27/19 13:10 Mechanical Ventilator 03/27/19 13:06 76 18 30 03/27/19 13:00 77 21 134/61 (85) 100 03/27/19 12:00 30 03/27/19 12:00 75 16 124/56 (78) 100 03/27/19 12:00 Mechanical Ventilator Mechanical Ventilator Mechanical Ventilator 03/27/19 12:00 77 03/27/19 11:16 78 20 100 Mechanical Ventilator 30 03/27/19 11:08 78 20 100 Mechanical Ventilator 30 03/27/19 11:08 78 18 30 03/27/19 11:00 82 28 125/78 (94) 100 03/27/19 10:00 76 19 151/60 (90) 100 03/27/19 09:22 71 18 30 03/27/19 09:22 113/47 Status: somnolent Condition: other Lungs: rhonchi Heart: HR/BP stable Abdomen: soft, non-tender Extremities: edema Micro: Microbiology Date/Time Source Procedure Growth Status 03/25/19 19:00 Sputum Induced Gram Stain - Final Complete 03/25/19 19:00 Sputum Culture - Final Pseudomonas Aeruginosa Complete 03/26/19 18:40 Urine,Clean Catch Urine Culture - Preliminary Resulted 03/26/19 18:40 Indwelling Cath Urine Culture - Preliminary Resulted Accucheck: 178 Critical Care - Subjective ROS Limited/Unobtainable: Yes Condition: unchanged FI02: 30 Vent Support Breath Rate: 12 Vent Support Mode: AC Vent Tidal Volume: 450 Sputum Amount: Small PEEP: 5.0 PIP: 22 Tube Feeding Amount: 60 I&O: Intake and Output 03/27/19 03/28/19 18:59 06:59 Intake Total 2234.666 ml 1100 ml Output Total 610 ml 710 ml Balance 1624.666 ml 390 ml Free Water 600 ml 100 ml IV Total 1094.666 ml 460 ml Tube Feeding 540 ml 540 ml Output Urine Total 610 ml 710 ml Subjective: no events over night remains on the ventt more awake, tracks some what but does not follow commands no cp nv or bleeding tolerating tf no pressors no new cxr family agreed to terminal extubation friday no trach or peg ET-Tube: 7.5 ET Position: 21 Labs: Current Medications Medications (Trade) Dose Ordered Sig/Singh Route PRN Reason Start Time Stop Time Status Last Admin Dose Admin Acetaminophen (Tylenol) 650 mg Q4H PRN GT Mild Pain/Temp > 100.5 03/09/19 20:30 04/08/19 20:29 03/26/19 12:18 Albuterol/ Ipratropium (Albuterol/ Ipratropium) 3 ml Q4HRT HHN 03/25/19 19:00 03/30/19 18:59 03/28/19 07:13 Amikacin Protocol (Amikacin pharmacy to dose) 1 ea DAILY PRN MISC Per rx protocol 03/24/19 11:30 04/23/19 11:29 Amikacin Sulfate 1000 mg/Sodium Chloride 114 ml @ 228 mls/hr Q36H IV 03/26/19 02:00 04/02/19 01:59 03/27/19 14:32 Bumetanide (Bumex) 1 mg BID IVP 03/24/19 12:30 04/23/19 12:29 03/28/19 08:23 Cefepime HCl 1 gm/ Dextrose 50 ml @ 100 mls/hr Q24H IVPB 03/25/19 17:00 04/01/19 16:59 03/27/19 17:32 Chlorhexidine Gluconate (Azra-Hex 2%) 1 applic DAILY@2000 TOPIC 03/10/19 20:00 04/09/19 19:59 03/27/19 20:41 Dextrose (Dextrose 50%) 25 ml Q30M PRN IV Hypoglycemia 03/09/19 21:00 04/08/19 20:59 Dextrose (Dextrose 50%) 50 ml Q30M PRN IV Hypoglycemia 03/09/19 21:00 04/08/19 20:59 Insulin Aspart (NovoLOG) EVERY 6 HOURS SUBQ 03/10/19 00:00 04/09/19 00:00 03/28/19 06:26 Lansoprazole (Prevacid) 30 mg DAILY GT 03/25/19 09:00 04/24/19 08:59 03/28/19 08:22 Lisinopril (Zestril) 10 mg DAILY GT 03/25/19 09:00 04/19/19 08:59 03/28/19 08:22 Metronidazole 100 ml @ 100 mls/hr Q8HR IVPB 03/25/19 14:00 04/01/19 13:59 03/28/19 06:25 Phenytoin (Dilantin) 125 mg Q12HR GT 03/09/19 21:00 04/08/19 20:59 03/28/19 08:22 Potassium Chloride 40 meq/ Dextrose 1,020 ml @ 30 mls/hr Q24H IV 03/27/19 11:37 04/26/19 11:36 03/27/19 12:22 Potassium Chloride (K-Dur) 40 meq DAILY GT 03/26/19 21:15 04/25/19 21:14 03/28/19 08:22 Vancomycin HCl (Vanco rx to dose) 1 ea DAILY PRN MISC Per rx protocol 03/24/19 11:30 04/23/19 11:29 Vancomycin HCl 750 mg/Sodium Chloride 275 ml @ 183.333 mls/hr Q24H IVPB 03/27/19 12:00 04/01/19 11:59 03/27/19 12:23 Laboratory Tests Test 03/28/19 04:30 White Blood Count 7.5 K/UL (4.8-10.8) Red Blood Count 2.71 M/UL (4.20-5.40) L Hemoglobin 9.2 G/DL (12.0-16.0) L Hematocrit 27.3 % (37.0-47.0) L Mean Corpuscular Volume 101 FL (80-99) H Mean Corpuscular Hemoglobin 33.8 PG (27.0-31.0) H Mean Corpuscular Hemoglobin Concent 33.5 G/DL (32.0-36.0) Red Cell Distribution Width 14.2 % (11.6-14.8) Platelet Count 138 K/UL (150-450) L Mean Platelet Volume 8.1 FL (6.5-10.1) Neutrophils (%) (Auto) 60.6 % (45.0-75.0) Lymphocytes (%) (Auto) 22.0 % (20.0-45.0) Monocytes (%) (Auto) 8.5 % (1.0-10.0) Eosinophils (%) (Auto) 8.0 % (0.0-3.0) H Basophils (%) (Auto) 0.9 % (0.0-2.0) Sodium Level 145 MMOL/L (136-145) Potassium Level 4.1 MMOL/L (3.5-5.1) Chloride Level 107 MMOL/L (98-107) Carbon Dioxide Level 34 MMOL/L (21-32) H Anion Gap 4 mmol/L (5-15) L Blood Urea Nitrogen 17 mg/dL (7-18) Creatinine 0.7 MG/DL (0.55-1.30) Estimat Glomerular Filtration Rate mL/min (>60) Glucose Level 137 MG/DL (74-106) H Calcium Level 8.5 MG/DL (8.5-10.1) Nia Rosa DO Mar 28, 2019 09:12
[2019-03-28] MEDS ORDERED: Tubing IV Secondary IV ONE (10:14)
[2019-03-28] MEDS ORDERED: NS 275ml ONE ×2 (10:14→16:52)
--- NOTE | 2019-03-28 10:51 | Nephrology Progress Note ---
Assessment/Plan Problem List: (1) Systolic heart failure (2) Dyspnea (3) Respiratory failure (4) Respiratory distress (5) Septic shock (6) Diabetes (7) CVA, old, hemiparesis (8) Hypokalemia (9) COLLIN (acute kidney injury) Plan restarted diuresis bumex , increase water flushes observe Na 149 epeat 147 now 143 145 d5w 30/hr, kcl with bumex Subjective ROS Limited/Unobtainable: Yes Objective Objective Last 24 Hour Vital Signs Date Time Temp Pulse Resp B/P (MAP) Pulse Ox O2 Delivery O2 Flow Rate FiO2 03/28/19 10:38 75 12 100 Mechanical Ventilator 30 03/28/19 10:32 75 12 30 03/28/19 10:00 77 15 139/52 (81) 100 03/28/19 09:05 76 19 30 03/28/19 09:00 80 15 141/55 (83) 100 03/28/19 08:22 127/86 03/28/19 08:00 99.1 75 12 122/46 (71) 100 03/28/19 08:00 30 03/28/19 08:00 77 03/28/19 08:00 Mechanical Ventilator Mechanical Ventilator Mechanical Ventilator 03/28/19 07:23 76 18 100 Mechanical Ventilator 30 03/28/19 07:13 73 17 100 Mechanical Ventilator 30 03/28/19 07:12 73 17 30 03/28/19 07:00 74 20 147/56 (86) 100 03/28/19 06:00 75 20 137/48 (77) 100 03/28/19 05:03 83 21 30 03/28/19 05:00 83 26 157/63 (94) 100 03/28/19 04:00 74 03/28/19 04:00 98.0 80 17 150/60 (90) 100 03/28/19 04:00 Mechanical Ventilator Mechanical Ventilator Mechanical Ventilator 03/28/19 04:00 30 03/28/19 03:37 86 23 100 Mechanical Ventilator 30 03/28/19 03:30 85 25 30 03/28/19 03:27 84 21 98 Mechanical Ventilator 30 03/28/19 03:00 77 23 146/56 (86) 100 03/28/19 02:00 80 21 155/61 (92) 99 03/28/19 01:30 78 17 30 03/28/19 01:00 68 17 141/53 (82) 100 03/28/19 00:00 30 03/28/19 00:00 71 03/28/19 00:00 Mechanical Ventilator Mechanical Ventilator Mechanical Ventilator 03/28/19 00:00 98.9 72 17 151/60 (90) 100 03/27/19 23:18 73 18 100 Mechanical Ventilator 30 03/27/19 23:15 71 14 30 03/27/19 23:10 71 14 98 Mechanical Ventilator 30 03/27/19 23:00 71 14 131/54 (79) 100 03/27/19 22:00 74 19 130/61 (84) 100 03/27/19 21:30 70 16 30 03/27/19 21:00 77 18 144/66 (92) 100 03/27/19 20:00 30 03/27/19 20:00 Mechanical Ventilator Mechanical Ventilator Mechanical Ventilator 03/27/19 20:00 98.7 73 19 132/54 (80) 100 03/27/19 20:00 78 20 100 Mechanical Ventilator 30 03/27/19 20:00 77 03/27/19 19:50 76 20 99 Mechanical Ventilator 30 03/27/19 19:30 73 14 30 03/27/19 19:00 75 19 140/62 (88) 100 03/27/19 18:00 76 12 144/58 (86) 100 03/27/19 17:00 76 18 123/58 (79) 100 03/27/19 16:56 75 16 30 03/27/19 16:00 70 03/27/19 16:00 30 03/27/19 16:00 99.3 71 16 117/48 (71) 100 03/27/19 16:00 Mechanical Ventilator Mechanical Ventilator Mechanical Ventilator 03/27/19 15:18 74 20 100 Mechanical Ventilator 30 03/27/19 15:10 73 14 100 Mechanical Ventilator 30 03/27/19 15:10 72 14 30 03/27/19 15:00 71 18 131/52 (78) 100 03/27/19 14:00 99.1 65 13 127/56 (79) 100 03/27/19 13:10 Mechanical Ventilator 03/27/19 13:06 76 18 30 03/27/19 13:00 77 21 134/61 (85) 100 03/27/19 12:00 30 03/27/19 12:00 75 16 124/56 (78) 100 03/27/19 12:00 Mechanical Ventilator Mechanical Ventilator Mechanical Ventilator 03/27/19 12:00 77 03/27/19 11:16 78 20 100 Mechanical Ventilator 30 03/27/19 11:08 78 20 100 Mechanical Ventilator 30 03/27/19 11:08 78 18 30 03/27/19 11:00 82 28 125/78 (94) 100 Intake and Output 03/27/19 03/28/19 18:59 06:59 Intake Total 2234.666 ml 1100 ml Output Total 610 ml 710 ml Balance 1624.666 ml 390 ml Free Water 600 ml 100 ml IV Total 1094.666 ml 460 ml Tube Feeding 540 ml 540 ml Output Urine Total 610 ml 710 ml Laboratory Tests 03/28/19 04:30: White Blood Count 7.5, Red Blood Count 2.71L, Hemoglobin 9.2L, Hematocrit 27.3L , Mean Corpuscular Volume 101H, Mean Corpuscular Hemoglobin 33.8H, Mean Corpuscular Hemoglobin Concent 33.5, Red Cell Distribution Width 14.2, Platelet Count 138L, Mean Platelet Volume 8.1, Neutrophils (%) (Auto) 60.6, Lymphocytes ( %) (Auto) 22.0, Monocytes (%) (Auto) 8.5, Eosinophils (%) (Auto) 8.0H, Basophils (%) (Auto) 0.9, Sodium Level 145, Potassium Level 4.1, Chloride Level 107, Carbon Dioxide Level 34H, Anion Gap 4L, Blood Urea Nitrogen 17, Creatinine 0.7, Estimat Glomerular Filtration Rate , Glucose Level 137H, Calcium Level 8.5 Height (Feet): 5 Height (Inches): 8.00 Weight (Pounds): 175 General Appearance: lethargic EENT: other - intuybated Neck: normal alignment Cardiovascular: regular rhythm Respiratory/Chest: rhonchi - bilaterally Abdomen: soft Extremities: trace edema Neurologic: motor weakness, unresponsive Lamberto Álvarez MD Mar 28, 2019 10:51
[2019-03-28] MEDS: Vancomycin 750mg/NS 275ml IVPB SCH ×2 (12:05)
--- NOTE | 2019-03-28 15:08 | Cardiology Progress Note ---
Assessment/Plan Assessment/Plan respiratory failure, failed extubation, tentative terminal extubation, continue monitor lytes and continue diuresis Subjective Subjective the patient is unresponsive and intubated, Objective Last 24 Hour Vital Signs Date Time Temp Pulse Resp B/P (MAP) Pulse Ox O2 Delivery O2 Flow Rate FiO2 03/28/19 14:55 77 14 100 Mechanical Ventilator 30 03/28/19 14:52 75 14 30 03/28/19 14:00 72 12 137/64 (88) 98 03/28/19 13:16 79 24 30 03/28/19 13:00 77 21 146/59 (88) 100 03/28/19 12:00 30 03/28/19 12:00 Mechanical Ventilator Mechanical Ventilator Mechanical Ventilator 03/28/19 12:00 77 03/28/19 12:00 99.1 77 13 123/48 (73) 100 03/28/19 11:00 78 15 137/55 (82) 100 03/28/19 10:49 82 25 100 Mechanical Ventilator 30 03/28/19 10:38 75 12 100 Mechanical Ventilator 30 03/28/19 10:32 75 12 30 03/28/19 10:00 77 15 139/52 (81) 100 03/28/19 09:05 76 19 30 03/28/19 09:00 80 15 141/55 (83) 100 03/28/19 08:22 127/86 03/28/19 08:00 99.1 75 12 122/46 (71) 100 03/28/19 08:00 30 03/28/19 08:00 77 03/28/19 08:00 Mechanical Ventilator Mechanical Ventilator Mechanical Ventilator 03/28/19 07:23 76 18 100 Mechanical Ventilator 30 03/28/19 07:13 73 17 100 Mechanical Ventilator 30 03/28/19 07:12 73 17 30 03/28/19 07:00 74 20 147/56 (86) 100 03/28/19 06:00 75 20 137/48 (77) 100 03/28/19 05:03 83 21 30 03/28/19 05:00 83 26 157/63 (94) 100 03/28/19 04:00 74 03/28/19 04:00 98.0 80 17 150/60 (90) 100 03/28/19 04:00 Mechanical Ventilator Mechanical Ventilator Mechanical Ventilator 03/28/19 04:00 30 03/28/19 03:37 86 23 100 Mechanical Ventilator 30 03/28/19 03:30 85 25 30 03/28/19 03:27 84 21 98 Mechanical Ventilator 30 03/28/19 03:00 77 23 146/56 (86) 100 03/28/19 02:00 80 21 155/61 (92) 99 03/28/19 01:30 78 17 30 03/28/19 01:00 68 17 141/53 (82) 100 03/28/19 00:00 30 03/28/19 00:00 71 03/28/19 00:00 Mechanical Ventilator Mechanical Ventilator Mechanical Ventilator 03/28/19 00:00 98.9 72 17 151/60 (90) 100 03/27/19 23:18 73 18 100 Mechanical Ventilator 30 03/27/19 23:15 71 14 30 03/27/19 23:10 71 14 98 Mechanical Ventilator 30 03/27/19 23:00 71 14 131/54 (79) 100 03/27/19 22:00 74 19 130/61 (84) 100 03/27/19 21:30 70 16 30 03/27/19 21:00 77 18 144/66 (92) 100 03/27/19 20:00 30 03/27/19 20:00 Mechanical Ventilator Mechanical Ventilator Mechanical Ventilator 03/27/19 20:00 98.7 73 19 132/54 (80) 100 03/27/19 20:00 78 20 100 Mechanical Ventilator 30 03/27/19 20:00 77 03/27/19 19:50 76 20 99 Mechanical Ventilator 30 03/27/19 19:30 73 14 30 03/27/19 19:00 75 19 140/62 (88) 100 03/27/19 18:00 76 12 144/58 (86) 100 03/27/19 17:00 76 18 123/58 (79) 100 03/27/19 16:56 75 16 30 03/27/19 16:00 70 03/27/19 16:00 30 03/27/19 16:00 99.3 71 16 117/48 (71) 100 03/27/19 16:00 Mechanical Ventilator Mechanical Ventilator Mechanical Ventilator 03/27/19 15:18 74 20 100 Mechanical Ventilator 30 03/27/19 15:10 73 14 100 Mechanical Ventilator 30 03/27/19 15:10 72 14 30 General Appearance: on vent, other - unresponsive EENT: other - eyes closed Neck: JVD Rhythm: NSR Cardiovascular: tachycardia Respiratory/Chest: rhonchi - bilaterally Abdomen: soft Intake and Output 03/27/19 03/28/19 19:00 07:00 Intake Total 2214.666 ml 1100 ml Output Total 620 ml 700 ml Balance 1594.666 ml 400 ml Free Water 600 ml 100 ml IV Total 1074.666 ml 460 ml Tube Feeding 540 ml 540 ml Output Urine Total 620 ml 700 ml Laboratory Tests Test 03/28/19 04:30 White Blood Count 7.5 K/UL (4.8-10.8) Red Blood Count 2.71 M/UL (4.20-5.40) L Hemoglobin 9.2 G/DL (12.0-16.0) L Hematocrit 27.3 % (37.0-47.0) L Mean Corpuscular Volume 101 FL (80-99) H Mean Corpuscular Hemoglobin 33.8 PG (27.0-31.0) H Mean Corpuscular Hemoglobin Concent 33.5 G/DL (32.0-36.0) Red Cell Distribution Width 14.2 % (11.6-14.8) Platelet Count 138 K/UL (150-450) L Mean Platelet Volume 8.1 FL (6.5-10.1) Neutrophils (%) (Auto) 60.6 % (45.0-75.0) Lymphocytes (%) (Auto) 22.0 % (20.0-45.0) Monocytes (%) (Auto) 8.5 % (1.0-10.0) Eosinophils (%) (Auto) 8.0 % (0.0-3.0) H Basophils (%) (Auto) 0.9 % (0.0-2.0) Sodium Level 145 MMOL/L (136-145) Potassium Level 4.1 MMOL/L (3.5-5.1) Chloride Level 107 MMOL/L (98-107) Carbon Dioxide Level 34 MMOL/L (21-32) H Anion Gap 4 mmol/L (5-15) L Blood Urea Nitrogen 17 mg/dL (7-18) Creatinine 0.7 MG/DL (0.55-1.30) Estimat Glomerular Filtration Rate mL/min (>60) Glucose Level 137 MG/DL (74-106) H Calcium Level 8.5 MG/DL (8.5-10.1) Microbiology Date/Time Source Procedure Growth Status 03/25/19 19:00 Sputum Induced Gram Stain - Final Complete 03/25/19 19:00 Sputum Culture - Final Pseudomonas Aeruginosa Complete 03/26/19 18:40 Urine,Clean Catch Urine Culture - Preliminary Resulted 03/26/19 18:40 Indwelling Cath Urine Culture - Preliminary Resulted Carlotta Rick MD Mar 28, 2019 15:08
--- NOTE | 2019-03-28 15:16 | Infectious Diseases Prog Note ---
Assessment/Plan Assessment/Plan ASSESSMENT/PLAN: 1. 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 Respiratory failure, on vent - weaning per pulmonary 3. Diabetes. 4. Hypertension. 5. Blood sugar and blood pressure treatment per primary for diabetes and hypertension. 6. Atrial fibrillation. 7. Heart failure. 8. G-tube. 9. Skin care protocol. 10. Cardiomegaly. 11. CAD and PR. 12. Hyperlipidemia. 13. Seizure disorder. 14. GERD. 15. History of CVA. 16. Allergic to penicillin and sulfa, tolerates meropenem. 17. Social history is negative. 18. Family history is noncontributory. 19. MAR is noted. 20. Case discussed with Dr. Franks. 21. Continue treatment per primary consultants. Subjective Constitutional: Reports: other - less fevers, alert, on vent, no pressors ; Denies: fever HEENT: Reports: congestion Respiratory: Reports: shortness of breath Cardiovascular: Reports: other - no pressors Gastrointestinal/Abdominal: Denies: nausea, vomiting, diarrhea Genitourinary: Reports: other - + macias Neurologic: Reports: weakness, other - alert Psychiatric: Reports: other - na Skin: Denies: rash Hematologic: Denies: bleeding Musculoskeletal: Denies: pain Allergies: Coded Allergies: PENICILLINS (Verified Allergy, Unknown, 02/04/18) SULFA (SULFONAMIDE ANTIBIOTICS) (Verified Allergy, Unknown, 02/04/18) SULFACETAMIDE (Unverified Allergy, Unknown, 06/24/18) Objective Vital Signs Last 24 Hour Vital Signs Date Time Temp Pulse Resp B/P (MAP) Pulse Ox O2 Delivery O2 Flow Rate FiO2 03/28/19 14:55 77 14 100 Mechanical Ventilator 30 03/28/19 14:52 75 14 30 03/28/19 14:00 72 12 137/64 (88) 98 03/28/19 13:16 79 24 30 03/28/19 13:00 77 21 146/59 (88) 100 03/28/19 12:00 30 03/28/19 12:00 Mechanical Ventilator Mechanical Ventilator Mechanical Ventilator 03/28/19 12:00 77 03/28/19 12:00 99.1 77 13 123/48 (73) 100 03/28/19 11:00 78 15 137/55 (82) 100 03/28/19 10:49 82 25 100 Mechanical Ventilator 30 03/28/19 10:38 75 12 100 Mechanical Ventilator 30 03/28/19 10:32 75 12 30 03/28/19 10:00 77 15 139/52 (81) 100 03/28/19 09:05 76 19 30 03/28/19 09:00 80 15 141/55 (83) 100 03/28/19 08:22 127/86 03/28/19 08:00 99.1 75 12 122/46 (71) 100 03/28/19 08:00 30 03/28/19 08:00 77 03/28/19 08:00 Mechanical Ventilator Mechanical Ventilator Mechanical Ventilator 03/28/19 07:23 76 18 100 Mechanical Ventilator 30 03/28/19 07:13 73 17 100 Mechanical Ventilator 30 03/28/19 07:12 73 17 30 03/28/19 07:00 74 20 147/56 (86) 100 03/28/19 06:00 75 20 137/48 (77) 100 03/28/19 05:03 83 21 30 03/28/19 05:00 83 26 157/63 (94) 100 03/28/19 04:00 74 03/28/19 04:00 98.0 80 17 150/60 (90) 100 03/28/19 04:00 Mechanical Ventilator Mechanical Ventilator Mechanical Ventilator 03/28/19 04:00 30 03/28/19 03:37 86 23 100 Mechanical Ventilator 30 03/28/19 03:30 85 25 30 03/28/19 03:27 84 21 98 Mechanical Ventilator 30 03/28/19 03:00 77 23 146/56 (86) 100 03/28/19 02:00 80 21 155/61 (92) 99 03/28/19 01:30 78 17 30 03/28/19 01:00 68 17 141/53 (82) 100 03/28/19 00:00 30 03/28/19 00:00 71 03/28/19 00:00 Mechanical Ventilator Mechanical Ventilator Mechanical Ventilator 03/28/19 00:00 98.9 72 17 151/60 (90) 100 03/27/19 23:18 73 18 100 Mechanical Ventilator 30 03/27/19 23:15 71 14 30 03/27/19 23:10 71 14 98 Mechanical Ventilator 30 03/27/19 23:00 71 14 131/54 (79) 100 03/27/19 22:00 74 19 130/61 (84) 100 03/27/19 21:30 70 16 30 03/27/19 21:00 77 18 144/66 (92) 100 03/27/19 20:00 30 03/27/19 20:00 Mechanical Ventilator Mechanical Ventilator Mechanical Ventilator 03/27/19 20:00 98.7 73 19 132/54 (80) 100 03/27/19 20:00 78 20 100 Mechanical Ventilator 30 03/27/19 20:00 77 03/27/19 19:50 76 20 99 Mechanical Ventilator 30 03/27/19 19:30 73 14 30 03/27/19 19:00 75 19 140/62 (88) 100 03/27/19 18:00 76 12 144/58 (86) 100 03/27/19 17:00 76 18 123/58 (79) 100 03/27/19 16:56 75 16 30 03/27/19 16:00 70 03/27/19 16:00 30 03/27/19 16:00 99.3 71 16 117/48 (71) 100 03/27/19 16:00 Mechanical Ventilator Mechanical Ventilator Mechanical Ventilator 03/27/19 15:18 74 20 100 Mechanical Ventilator 30 03/27/19 15:10 73 14 100 Mechanical Ventilator 30 03/27/19 15:10 72 14 30 Height (Feet): 5 Height (Inches): 8.00 Weight (Pounds): 175 General Appearance: no acute distress HEENT: normocephalic, atraumatic, anicteric, mucous membranes moist Respiratory/Chest: crackles/rales, rhonchi - bilaterally Cardiovascular: normal rate, regular rhythm, no gallop/murmur, no JVD Abdomen: normal bowel sounds, soft, non tender, no organomegaly, non distended Genitourinary: other - + macias - urine slt cloudy Extremities: no cyanosis Skin: no rash 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 Findings: Endotracheal tube and right jugular line are stable. Mild pulmonary vascular congestion suspected. IMPRESSION: No change from the prior exam. Mild CHF suspected Chest x-ray - 03/17/19 - Comparison: 03/15/2019 A single view chest radiograph was obtained. Findings: Vascular congestion demonstrated. Tubes and lines are stable. Heart size is mildly enlarged and stable. Small right pleural effusion suspected. IMPRESSION: No change from the previous examination. Suspected CHF Chest x-ray - 03/22/19 - IMPRESSION: 1. Worsening small right pleural effusion. Similar small left pleural effusion. 2. Increased right lower lung atelectasis/airspace disease and similar left lung base opacity. Chest x-ray - 03/25/19- Procedure: XRAY Chest 1v Indication: Shortness of breath Technique: One view of the chest Comparison: 03/24/2019 Findings: Interim removal of previously demonstrated right jugular central venous catheter. Post PICC radiograph left arm PICC remains Bilateral right greater than left pleural effusions are again demonstrated. The heart size is on preliminary normal. Impression: Interim central venous catheter removal. Otherwise little filter changer one day, findings as noted 03/26/19 - chest x-ray - no change, report noted Microbiology Date/Time Source Procedure Growth Status 03/09/19 14:10 Blood Blood Culture - Final Staphylococcus Sp Coag Neg Complete 03/25/19 19:00 Sputum Induced Gram Stain - Final Complete 03/25/19 19:00 Sputum Culture - Final Pseudomonas Aeruginosa Complete 03/26/19 18:40 Urine,Clean Catch Urine Culture - Preliminary Resulted 03/09/19 14:35 Rectum VRE Culture - Final NO VANCOMYCIN RESISTANT ENTEROCOCCUS ... Complete 03/09/19 14:35 Rectum - Final NO CARBAPENEM-RESISTANT ENTEROBACTERI... Complete Microbiology Date/Time Source Procedure Growth Status 03/25/19 19:00 Sputum Induced Gram Stain - Final Complete 03/25/19 19:00 Sputum Culture - Final Pseudomonas Aeruginosa Complete 03/26/19 18:40 Urine,Clean Catch Urine Culture - Preliminary Resulted 03/26/19 18:40 Indwelling Cath Urine Culture - Preliminary Resulted Laboratory Tests Test 03/28/19 04:30 White Blood Count 7.5 K/UL (4.8-10.8) Red Blood Count 2.71 M/UL (4.20-5.40) L Hemoglobin 9.2 G/DL (12.0-16.0) L Hematocrit 27.3 % (37.0-47.0) L Mean Corpuscular Volume 101 FL (80-99) H Mean Corpuscular Hemoglobin 33.8 PG (27.0-31.0) H Mean Corpuscular Hemoglobin Concent 33.5 G/DL (32.0-36.0) Red Cell Distribution Width 14.2 % (11.6-14.8) Platelet Count 138 K/UL (150-450) L Mean Platelet Volume 8.1 FL (6.5-10.1) Neutrophils (%) (Auto) 60.6 % (45.0-75.0) Lymphocytes (%) (Auto) 22.0 % (20.0-45.0) Monocytes (%) (Auto) 8.5 % (1.0-10.0) Eosinophils (%) (Auto) 8.0 % (0.0-3.0) H Basophils (%) (Auto) 0.9 % (0.0-2.0) Sodium Level 145 MMOL/L (136-145) Potassium Level 4.1 MMOL/L (3.5-5.1) Chloride Level 107 MMOL/L (98-107) Carbon Dioxide Level 34 MMOL/L (21-32) H Anion Gap 4 mmol/L (5-15) L Blood Urea Nitrogen 17 mg/dL (7-18) Creatinine 0.7 MG/DL (0.55-1.30) Estimat Glomerular Filtration Rate mL/min (>60) Glucose Level 137 MG/DL (74-106) H Calcium Level 8.5 MG/DL (8.5-10.1) Current Medications Medications (Trade) Dose Ordered Sig/Singh Route PRN Reason Start Time Stop Time Status Last Admin Dose Admin Acetaminophen (Tylenol) 650 mg Q4H PRN GT Mild Pain/Temp > 100.5 03/09/19 20:30 04/08/19 20:29 03/26/19 12:18 Albuterol/ Ipratropium (Albuterol/ Ipratropium) 3 ml Q4HRT HHN 03/25/19 19:00 03/30/19 18:59 6/2/19 14:55 Amikacin Protocol (Amikacin pharmacy to dose) 1 ea DAILY PRN MISC Per rx protocol 03/24/19 11:30 04/23/19 11:29 Amikacin Sulfate 1000 mg/Sodium Chloride 114 ml @ 228 mls/hr Q36H IV 03/26/19 02:00 04/02/19 01:59 03/27/19 14:32 Bumetanide (Bumex) 2 mg BID IVP 03/28/19 18:00 04/27/19 17:59 Cefepime HCl 1 gm/ Dextrose 50 ml @ 100 mls/hr Q24H IVPB 03/25/19 17:00 04/01/19 16:59 03/27/19 17:32 Chlorhexidine Gluconate (Azra-Hex 2%) 1 applic DAILY@2000 TOPIC 03/10/19 20:00 04/09/19 19:59 03/27/19 20:41 Dextrose (Dextrose 50%) 25 ml Q30M PRN IV Hypoglycemia 03/09/19 21:00 04/08/19 20:59 Dextrose (Dextrose 50%) 50 ml Q30M PRN IV Hypoglycemia 03/09/19 21:00 04/08/19 20:59 Insulin Aspart (NovoLOG) EVERY 6 HOURS SUBQ 03/10/19 00:00 04/09/19 00:00 03/28/19 12:06 Lansoprazole (Prevacid) 30 mg DAILY GT 03/25/19 09:00 04/24/19 08:59 03/28/19 08:22 Lisinopril (Zestril) 10 mg DAILY GT 03/25/19 09:00 04/19/19 08:59 03/28/19 08:22 Metronidazole 100 ml @ 100 mls/hr Q8HR IVPB 03/25/19 14:00 04/01/19 13:59 03/28/19 14:33 Phenytoin (Dilantin) 125 mg Q12HR GT 03/09/19 21:00 04/08/19 20:59 03/28/19 08:22 Potassium Chloride 40 meq/ Dextrose 1,020 ml @ 30 mls/hr Q24H IV 03/27/19 11:37 04/26/19 11:36 03/28/19 12:29 Potassium Chloride (K-Dur) 40 meq DAILY GT 03/26/19 21:15 04/25/19 21:14 03/28/19 08:22 Vancomycin HCl (Vanco rx to dose) 1 ea DAILY PRN MISC Per rx protocol 03/24/19 11:30 04/23/19 11:29 Vancomycin HCl 750 mg/Sodium Chloride 275 ml @ 183.333 mls/hr Q24H IVPB 03/27/19 12:00 04/01/19 11:59 03/28/19 12:05 Prashanth Osborne MD Mar 28, 2019 15:16
[2019-03-28] MEDS ORDERED: Sterile Water Irrig 1000ml IRRIG ONE (16:52)
[2019-03-28] MEDS: Dyna-Hex 2% Top Sol 2oz TOPIC SCH (19:50)
--- NOTE | 2019-03-28 23:59 | Neurology Progress Note ---
Interim History Interim History ROS Limited/Unobtainable: Yes Complaints: AMS Events: This visit was performed on March 28, [address] Melecio Tavarez Interim History No changes in MS or neuro exam today. Objective Physical Exam Last Vital Signs Date Time Temp Pulse Resp B/P (MAP) Pulse Ox O2 Delivery O2 Flow Rate FiO2 03/28/19 23:50 72 13 100 Mechanical Ventilator 30 03/28/19 23:00 138/52 (80) 03/28/19 20:00 98.7 03/25/19 16:00 2.0 2.0 2.0 Laboratory Tests Test 03/28/19 04:30 White Blood Count 7.5 K/UL (4.8-10.8) Red Blood Count 2.71 M/UL (4.20-5.40) L Hemoglobin 9.2 G/DL (12.0-16.0) L Hematocrit 27.3 % (37.0-47.0) L Mean Corpuscular Volume 101 FL (80-99) H Mean Corpuscular Hemoglobin 33.8 PG (27.0-31.0) H Mean Corpuscular Hemoglobin Concent 33.5 G/DL (32.0-36.0) Red Cell Distribution Width 14.2 % (11.6-14.8) Platelet Count 138 K/UL (150-450) L Mean Platelet Volume 8.1 FL (6.5-10.1) Neutrophils (%) (Auto) 60.6 % (45.0-75.0) Lymphocytes (%) (Auto) 22.0 % (20.0-45.0) Monocytes (%) (Auto) 8.5 % (1.0-10.0) Eosinophils (%) (Auto) 8.0 % (0.0-3.0) H Basophils (%) (Auto) 0.9 % (0.0-2.0) Sodium Level 145 MMOL/L (136-145) Potassium Level 4.1 MMOL/L (3.5-5.1) Chloride Level 107 MMOL/L (98-107) Carbon Dioxide Level 34 MMOL/L (21-32) H Anion Gap 4 mmol/L (5-15) L Blood Urea Nitrogen 17 mg/dL (7-18) Creatinine 0.7 MG/DL (0.55-1.30) Estimat Glomerular Filtration Rate mL/min (>60) Glucose Level 137 MG/DL (74-106) H Calcium Level 8.5 MG/DL (8.5-10.1) General: well developed, well nourished Head: normocophalic, atraumatic Neck: no rigidity EENT: benign Neurologic Exam Mental Status: awake Cranial Nerve II: no papilledema Cranial Nerves III, IV, : PERRLA, EOMI Cranial Nerve VIII: normal hearing Cranial Nerve XII: tongue midline Motor System: other - Right sided hemiplegia with TF in leg and min withdrawal at shoulder / Left sided w/d and apparent full strength to noxious stimuli Sensory: other - Some indication of paresthesia requiring increased noxious stimuli on right side Gait: normal regular Objective Extubated yesterday, no respiratory distress- she is back to baseline MS - alert , tracking, non verbal. She is now making meaningful eye contact and tracking with her eyes. As per her granddaughter, she is now approximately back to her baseline - which was tracking people with her eyes, moving/ turning her head, she could be sounds but no formal speech. 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 Right facial weakness of whole face, including eye. Possible sensory loss on right side due to need for increased noxious stimulus to induce response. Right side plegic, with slight movement proximally > distally. Left side w/d and UE now in restraints because exhibiting full strength Impression/Recommendations Problems: (1) Acute encephalopathy Assessment & Plan: Still not following commands. As per granddaughter - she does not do this at baseline (2) Septic shock (3) Respiratory failure (4) Dementia (5) Altered level of consciousness (6) CVA, old, hemiparesis Assessment & Plan: CT Brain 03/09/19: Old left parietal and occipital infarct Moderate atrophy of the brain. 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 (7) Diabetes Status: stable, progressing, unchanged Diagnostic Impression Can consider MRI of brain now that extubated but this is not a priority study as patient is back to Baseline. Maintain Normoglycemia with ISS May start ASA HgB> 8 - dropping on CBC, track and trend Maintain normoglycemia with ISS Continue enteral feeding SBP< 140 Discussion with family regarding goals of care Recommendations Q 2 hour neuro obs Abx as needed Replete/ Correct Lytes as necessary Discuss goals of care with family Continue Phenytoin but no indication for increased dosage or addition of second line AED Prevent Delirium: PT EVal as soon as able for OOB in Chair Maintain sleep hygiene by making room dark at night and minimizing nighttime observations. Seroquel 25mg QD PRN for agitation- can be increased if necessary please avoid benzos, opioids, anticholinergic drugs if the goal of treatment is to wean- This was a critical care note. Critical care time of 40 minutes, was performed in order to assess and manage the high probability of imminent or life threatening deterioration to respiratory/neurologic function, with frequent reassessment and excludes all billable procedures. Ngozi Franklin N.P. Mar 28, 2019 23:59
[2019-03-29] VITALS (24 sets, daily range): BP systolic 108–165; BP diastolic 46–80
[2019-03-29] MEDS: Amikacin 1,000 MG in NS 110 ML IV SCH (02:06)
[2019-03-29] MEDS: Albuterol/Ipratropium 3ml neb HHN SCH ×6 (03:19→23:53)
[2019-03-29 04:48] LABS: BASOPHILS % (AUTO) 1.1 % (0.0-2.0); EOSINOPHILS % (AUTO) 6.6 % (0.0-3.0); HEMATOCRIT 26.9 % (37.0-47.0); HEMOGLOBIN 8.8 G/DL (12.0-16.0); LYMPHOCYTES % (AUTO) 23.3 % (20.0-45.0); MEAN CORPUSCULAR VOLUME 103 FL (80-99); MONOCYTES % (AUTO) 9.3 % (1.0-10.0); NEUTROPHILS % (AUTO) 59.7 % (45.0-75.0); PLATELET COUNT 141 K/UL (150-450); RED BLOOD COUNT 2.62 M/UL (4.20-5.40); RED CELL DISTRIBUTION WIDTH 14.7 % (11.6-14.8); WHITE BLOOD COUNT 6.6 K/UL (4.8-10.8)
[2019-03-29 05:30] LABS: ANION GAP 4 mmol/L (5-15); BLOOD UREA NITROGEN 16 mg/dL (7-18); CALCIUM 8.6 MG/DL (8.5-10.1); CARBON DIOXIDE 33 MMOL/L (21-32); CHLORIDE 107 MMOL/L (98-107); CREATININE 0.7 MG/DL (0.55-1.30); POTASSIUM 3.9 MMOL/L (3.5-5.1); SODIUM 144 MMOL/L (136-145)
[2019-03-29] MEDS: NovoLOG Insulin Flexpen SUBQ SCH ×3 (05:44→17:32)
[2019-03-29] MEDS: Bumetanide 2.5mg/10ml Inj IVP SCH ×2 (08:52→17:33)
[2019-03-29] MEDS: Phenytoin Susp 100mg/4ml GT SCH ×2 (08:53→20:49)
[2019-03-29] MEDS: Lisinopril 10mg tab GT SCH (08:54)
[2019-03-29] MEDS: Vancomycin 750mg/NS 275ml IVPB SCH ×2 (12:30)
--- NOTE | 2019-03-29 17:53 | Nephrology Progress Note ---
Assessment/Plan Problem List: (1) Systolic heart failure (2) Dyspnea (3) Respiratory failure (4) Respiratory distress (5) Septic shock (6) Diabetes (7) CVA, old, hemiparesis (8) Hypokalemia (9) COLLIN (acute kidney injury) (10) Hypernatremia Plan restarted diuresis bumex , increase water flushes observe Na 149 epeat 147 now 143 145 144 d5w 30/hr, kcl with bumex Subjective ROS Limited/Unobtainable: Yes Objective Objective Last 24 Hour Vital Signs Date Time Temp Pulse Resp B/P (MAP) Pulse Ox O2 Delivery O2 Flow Rate FiO2 03/29/19 17:02 80 19 30 03/29/19 17:00 80 17 143/61 (88) 100 03/29/19 16:00 76 14 116/48 (70) 100 03/29/19 16:00 Mechanical Ventilator Mechanical Ventilator Mechanical Ventilator 03/29/19 16:00 30 03/29/19 16:00 78 03/29/19 15:23 77 16 100 Mechanical Ventilator 30 03/29/19 15:13 75 17 100 Mechanical Ventilator 30 03/29/19 15:09 75 17 30 03/29/19 15:00 75 12 111/60 (77) 100 03/29/19 14:00 73 17 119/46 (70) 100 03/29/19 13:00 73 17 113/47 (69) 100 03/29/19 12:37 73 12 30 03/29/19 12:00 30 03/29/19 12:00 Mechanical Ventilator Mechanical Ventilator Mechanical Ventilator 03/29/19 12:00 98.8 74 17 131/53 (79) 99 03/29/19 12:00 74 03/29/19 11:39 73 14 100 Mechanical Ventilator 30 03/29/19 11:29 74 13 100 Mechanical Ventilator 30 03/29/19 11:28 74 13 30 03/29/19 11:00 76 15 119/49 (72) 100 03/29/19 10:00 76 15 128/51 (76) 100 03/29/19 09:06 76 17 30 03/29/19 09:00 76 12 133/55 (81) 100 03/29/19 08:54 128/50 03/29/19 08:00 Mechanical Ventilator Mechanical Ventilator Mechanical Ventilator 03/29/19 08:00 73 03/29/19 08:00 30 03/29/19 08:00 98.6 77 13 128/50 (76) 99 03/29/19 07:25 78 16 100 Mechanical Ventilator 30 03/29/19 07:15 71 16 100 Mechanical Ventilator 30 03/29/19 07:12 71 16 30 03/29/19 07:00 74 22 132/50 (77) 99 03/29/19 06:00 75 13 119/46 (70) 100 03/29/19 05:00 77 13 126/47 (73) 100 03/29/19 04:52 78 12 30 03/29/19 04:00 Mechanical Ventilator Mechanical Ventilator Mechanical Ventilator 03/29/19 04:00 30 03/29/19 04:00 73 03/29/19 04:00 98.9 77 19 127/62 (83) 100 03/29/19 03:31 75 14 100 Mechanical Ventilator 30 03/29/19 03:20 74 16 30 03/29/19 03:20 74 14 100 Mechanical Ventilator 30 03/29/19 03:00 74 21 136/80 (98) 99 03/29/19 02:00 73 14 133/56 (81) 100 03/29/19 01:20 76 23 30 03/29/19 01:00 67 14 130/50 (76) 100 03/29/19 00:00 72 03/29/19 00:00 Mechanical Ventilator Mechanical Ventilator Mechanical Ventilator 03/29/19 00:00 73 14 108/57 (74) 100 03/28/19 23:50 72 13 100 Mechanical Ventilator 30 03/28/19 23:29 71 16 100 Mechanical Ventilator 30 03/28/19 23:14 74 15 30 03/28/19 23:00 74 16 138/52 (80) 100 03/28/19 22:00 74 16 138/54 (82) 100 03/28/19 21:13 70 13 30 03/28/19 21:00 72 12 131/58 (82) 100 03/28/19 20:00 98.7 74 14 129/52 (77) 100 03/28/19 20:00 Mechanical Ventilator Mechanical Ventilator Mechanical Ventilator 03/28/19 20:00 30 03/28/19 20:00 62 03/28/19 19:29 75 12 100 Mechanical Ventilator 30 03/28/19 19:19 75 15 100 Mechanical Ventilator 30 03/28/19 19:17 75 14 30 03/28/19 19:00 75 12 110/48 (68) 100 03/28/19 18:00 78 15 124/50 (74) 100 Intake and Output 03/28/19 03/29/19 19:00 07:00 Intake Total 2196.666 ml 1464 ml Output Total 935 ml 830 ml Balance 1261.666 ml 634 ml Free Water 600 ml 300 ml IV Total 996.666 ml 504 ml Tube Feeding 540 ml 660 ml Other 60 ml Output Urine Total 935 ml 830 ml Laboratory Tests 03/29/19 04:09: White Blood Count 6.6, Red Blood Count 2.62L, Hemoglobin 8.8L, Hematocrit 26.9L , Mean Corpuscular Volume 103H, Mean Corpuscular Hemoglobin 33.6H, Mean Corpuscular Hemoglobin Concent 32.8, Red Cell Distribution Width 14.7, Platelet Count 141L, Mean Platelet Volume 9.0, Neutrophils (%) (Auto) 59.7, Lymphocytes ( %) (Auto) 23.3, Monocytes (%) (Auto) 9.3, Eosinophils (%) (Auto) 6.6H, Basophils (%) (Auto) 1.1, Sodium Level 144, Potassium Level 3.9, Chloride Level 107, Carbon Dioxide Level 33H, Anion Gap 4L, Blood Urea Nitrogen 16, Creatinine 0.7, Estimat Glomerular Filtration Rate , Glucose Level 141H, Calcium Level 8.6 Height (Feet): 5 Height (Inches): 8.00 Weight (Pounds): 175 EENT: other - intubated Neck: normal alignment Cardiovascular: normal rate Respiratory/Chest: rhonchi - bilaterally Abdomen: non tender, soft Extremities: moderate edema Neurologic: unresponsive Lamberto Álvarez MD Mar 29, 2019 17:53
[2019-03-29] MEDS: Dyna-Hex 2% Top Sol 2oz TOPIC SCH (19:49)
--- NOTE | 2019-03-29 20:23 | Cardiology Progress Note ---
Assessment/Plan Assessment/Plan 1. Hypernatremia free water deficit 2. Likely demand ischemia 3. Metabolic alkalosis. 4. altered mentation secondary to above. 5. Anemia, mild. 6. History of seizures. 7. Diabetes history. 8. Hypertension history. 9. hs of diastolic failure 10.New LV systolic dysfunction ? 11. bactermia 12 edema 13. respiratory arrest for terminal extubation tomorrow per staff Subjective ROS Limited/Unobtainable: Yes Subjective now reintubated Objective Last 24 Hour Vital Signs Date Time Temp Pulse Resp B/P (MAP) Pulse Ox O2 Delivery O2 Flow Rate FiO2 03/29/19 19:35 84 12 100 Mechanical Ventilator 30 03/29/19 19:24 85 13 100 Mechanical Ventilator 30 03/29/19 19:23 85 13 30 03/29/19 19:00 86 18 165/66 (99) 100 03/29/19 18:00 82 14 124/48 (73) 100 03/29/19 17:02 80 19 30 03/29/19 17:00 80 17 143/61 (88) 100 03/29/19 16:00 98.6 76 14 116/48 (70) 100 03/29/19 16:00 Mechanical Ventilator Mechanical Ventilator Mechanical Ventilator 03/29/19 16:00 30 03/29/19 16:00 78 03/29/19 15:23 77 16 100 Mechanical Ventilator 30 03/29/19 15:13 75 17 100 Mechanical Ventilator 30 03/29/19 15:09 75 17 30 03/29/19 15:00 75 12 111/60 (77) 100 03/29/19 14:00 73 17 119/46 (70) 100 03/29/19 13:00 73 17 113/47 (69) 100 03/29/19 12:37 73 12 30 03/29/19 12:00 30 03/29/19 12:00 Mechanical Ventilator Mechanical Ventilator Mechanical Ventilator 03/29/19 12:00 98.8 74 17 131/53 (79) 99 03/29/19 12:00 74 03/29/19 11:39 73 14 100 Mechanical Ventilator 30 03/29/19 11:29 74 13 100 Mechanical Ventilator 30 03/29/19 11:28 74 13 30 03/29/19 11:00 76 15 119/49 (72) 100 03/29/19 10:00 76 15 128/51 (76) 100 03/29/19 09:06 76 17 30 03/29/19 09:00 76 12 133/55 (81) 100 03/29/19 08:54 128/50 03/29/19 08:00 Mechanical Ventilator Mechanical Ventilator Mechanical Ventilator 03/29/19 08:00 73 03/29/19 08:00 30 03/29/19 08:00 98.6 77 13 128/50 (76) 99 03/29/19 07:25 78 16 100 Mechanical Ventilator 30 03/29/19 07:15 71 16 100 Mechanical Ventilator 30 03/29/19 07:12 71 16 30 03/29/19 07:00 74 22 132/50 (77) 99 03/29/19 06:00 75 13 119/46 (70) 100 03/29/19 05:00 77 13 126/47 (73) 100 03/29/19 04:52 78 12 30 03/29/19 04:00 Mechanical Ventilator Mechanical Ventilator Mechanical Ventilator 03/29/19 04:00 30 03/29/19 04:00 73 03/29/19 04:00 98.9 77 19 127/62 (83) 100 03/29/19 03:31 75 14 100 Mechanical Ventilator 30 03/29/19 03:20 74 16 30 03/29/19 03:20 74 14 100 Mechanical Ventilator 30 03/29/19 03:00 74 21 136/80 (98) 99 03/29/19 02:00 73 14 133/56 (81) 100 03/29/19 01:20 76 23 30 03/29/19 01:00 67 14 130/50 (76) 100 03/29/19 00:00 72 03/29/19 00:00 Mechanical Ventilator Mechanical Ventilator Mechanical Ventilator 03/29/19 00:00 73 14 108/57 (74) 100 03/28/19 23:50 72 13 100 Mechanical Ventilator 30 03/28/19 23:29 71 16 100 Mechanical Ventilator 30 03/28/19 23:14 74 15 30 03/28/19 23:00 74 16 138/52 (80) 100 03/28/19 22:00 74 16 138/54 (82) 100 03/28/19 21:13 70 13 30 03/28/19 21:00 72 12 131/58 (82) 100 General Appearance: no apparent distress, on vent, patient on isolation Intake and Output 03/28/19 03/29/19 19:00 07:00 Intake Total 2196.666 ml 1464 ml Output Total 935 ml 830 ml Balance 1261.666 ml 634 ml Free Water 600 ml 300 ml IV Total 996.666 ml 504 ml Tube Feeding 540 ml 660 ml Other 60 ml Output Urine Total 935 ml 830 ml Laboratory Tests Test 03/29/19 04:09 White Blood Count 6.6 K/UL (4.8-10.8) Red Blood Count 2.62 M/UL (4.20-5.40) L Hemoglobin 8.8 G/DL (12.0-16.0) L Hematocrit 26.9 % (37.0-47.0) L Mean Corpuscular Volume 103 FL (80-99) H Mean Corpuscular Hemoglobin 33.6 PG (27.0-31.0) H Mean Corpuscular Hemoglobin Concent 32.8 G/DL (32.0-36.0) Red Cell Distribution Width 14.7 % (11.6-14.8) Platelet Count 141 K/UL (150-450) L Mean Platelet Volume 9.0 FL (6.5-10.1) Neutrophils (%) (Auto) 59.7 % (45.0-75.0) Lymphocytes (%) (Auto) 23.3 % (20.0-45.0) Monocytes (%) (Auto) 9.3 % (1.0-10.0) Eosinophils (%) (Auto) 6.6 % (0.0-3.0) H Basophils (%) (Auto) 1.1 % (0.0-2.0) Sodium Level 144 MMOL/L (136-145) Potassium Level 3.9 MMOL/L (3.5-5.1) Chloride Level 107 MMOL/L (98-107) Carbon Dioxide Level 33 MMOL/L (21-32) H Anion Gap 4 mmol/L (5-15) L Blood Urea Nitrogen 16 mg/dL (7-18) Creatinine 0.7 MG/DL (0.55-1.30) Estimat Glomerular Filtration Rate mL/min (>60) Glucose Level 141 MG/DL (74-106) H Calcium Level 8.6 MG/DL (8.5-10.1) Allen Bliss MD Mar 29, 2019 20:23
[2019-03-30] VITALS (19 sets, daily range): BP systolic 94–143; BP diastolic 42–79
--- NOTE | 2019-03-30 | Neurology Progress Note ---
Interim History Interim History ROS Limited/Unobtainable: Yes Complaints: AMS Events: This visit was performed on March 30, [address] Melecio Tavarez Interim History Terminal extubation planned for repairer pump with family at bedside Objective Physical Exam Last Vital Signs Date Time Temp Pulse Resp B/P (MAP) Pulse Ox O2 Delivery O2 Flow Rate FiO2 03/29/19 23:53 79 14 100 Mechanical Ventilator 30 03/29/19 19:00 165/66 (99) 03/29/19 16:00 98.6 03/25/19 16:00 2.0 2.0 2.0 Laboratory Tests Test 03/29/19 04:09 White Blood Count 6.6 K/UL (4.8-10.8) Red Blood Count 2.62 M/UL (4.20-5.40) L Hemoglobin 8.8 G/DL (12.0-16.0) L Hematocrit 26.9 % (37.0-47.0) L Mean Corpuscular Volume 103 FL (80-99) H Mean Corpuscular Hemoglobin 33.6 PG (27.0-31.0) H Mean Corpuscular Hemoglobin Concent 32.8 G/DL (32.0-36.0) Red Cell Distribution Width 14.7 % (11.6-14.8) Platelet Count 141 K/UL (150-450) L Mean Platelet Volume 9.0 FL (6.5-10.1) Neutrophils (%) (Auto) 59.7 % (45.0-75.0) Lymphocytes (%) (Auto) 23.3 % (20.0-45.0) Monocytes (%) (Auto) 9.3 % (1.0-10.0) Eosinophils (%) (Auto) 6.6 % (0.0-3.0) H Basophils (%) (Auto) 1.1 % (0.0-2.0) Sodium Level 144 MMOL/L (136-145) Potassium Level 3.9 MMOL/L (3.5-5.1) Chloride Level 107 MMOL/L (98-107) Carbon Dioxide Level 33 MMOL/L (21-32) H Anion Gap 4 mmol/L (5-15) L Blood Urea Nitrogen 16 mg/dL (7-18) Creatinine 0.7 MG/DL (0.55-1.30) Estimat Glomerular Filtration Rate mL/min (>60) Glucose Level 141 MG/DL (74-106) H Calcium Level 8.6 MG/DL (8.5-10.1) General: well developed, well nourished Head: normocophalic, atraumatic Neck: no rigidity EENT: benign Neurologic Exam Mental Status: awake Cranial Nerve II: no papilledema Cranial Nerves III, IV, : PERRLA, EOMI Cranial Nerve VIII: normal hearing Cranial Nerve XII: tongue midline Motor System: other - Right sided hemiplegia with TF in leg and min withdrawal at shoulder / Left sided w/d and apparent full strength to noxious stimuli Sensory: other - Some indication of paresthesia requiring increased noxious stimuli on right side Gait: normal regular Objective Extubated yesterday, no respiratory distress- she is back to baseline MS - alert , tracking, non verbal. She is now making meaningful eye contact and tracking with her eyes. As per her granddaughter, she is now approximately back to her baseline - which was tracking people with her eyes, moving/ turning her head, she could be sounds but no formal speech. 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 Right facial weakness of whole face, including eye. Possible sensory loss on right side due to need for increased noxious stimulus to induce response. Right side plegic, with slight movement proximally > distally. Left side w/d and UE now in restraints because exhibiting full strength Impression/Recommendations Problems: (1) Acute encephalopathy Assessment & Plan: Still not following commands. As per granddaughter - she does not do this at baseline (2) Septic shock (3) Respiratory failure (4) Dementia (5) Altered level of consciousness (6) CVA, old, hemiparesis Assessment & Plan: CT Brain 03/09/19: Old left parietal and occipital infarct Moderate atrophy of the brain. 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 (7) Diabetes Status: stable, progressing, unchanged Diagnostic Impression Can consider MRI of brain now that extubated but this is not a priority study as patient is back to Baseline. Maintain Normoglycemia with ISS May start ASA HgB> 8 - dropping on CBC, track and trend Maintain normoglycemia with ISS Continue enteral feeding SBP< 140 Discussion with family regarding goals of care Recommendations Q 2 hour neuro obs Abx as needed Replete/ Correct Lytes as necessary Discuss goals of care with family Continue Phenytoin but no indication for increased dosage or addition of second line AED Prevent Delirium: PT EVal as soon as able for OOB in Chair Maintain sleep hygiene by making room dark at night and minimizing nighttime observations. Seroquel 25mg QD PRN for agitation- can be increased if necessary please avoid benzos, opioids, anticholinergic drugs if the goal of treatment is to wean- This was a critical care note. Critical care time of 40 minutes, was performed in order to assess and manage the high probability of imminent or life threatening deterioration to respiratory/neurologic function, with frequent reassessment and excludes all billable procedures. Ngozi Franklin N.P. Mar 30, 2019 00:00
[2019-03-30] MEDS: NovoLOG Insulin Flexpen SUBQ SCH ×4 (00:03→17:41)
[2019-03-30] MEDS: Albuterol/Ipratropium 3ml neb HHN SCH ×6 (03:31→23:24)
[2019-03-30] MEDS ORDERED: Morphine Sulfate 4mg/ml Inj (IV USE ONLY) IVP PRN ×2 (08:45→17:45)
[2019-03-30] MEDS: Phenytoin Susp 100mg/4ml GT SCH ×2 (09:05→21:59)
[2019-03-30] MEDS: Lisinopril 10mg tab GT SCH (09:06)
[2019-03-30] MEDS: Bumetanide 2.5mg/10ml Inj IVP SCH ×2 (09:06→17:54)
--- NOTE | 2019-03-30 10:38 | Cardiology Progress Note ---
Assessment/Plan Assessment/Plan 1. Hypernatremia free water deficit 2. Likely demand ischemia 3. Metabolic alkalosis. 4. altered mentation secondary to above. 5. Anemia, mild. 6. History of seizures. 7. Diabetes history. 8. Hypertension history. 9. hs of diastolic failure 10.New LV systolic dysfunction ? 11. bactermia 12 edema 13. respiratory arrest s/p extubation felt to be terminal dtr at bedside looks comfortable Subjective ROS Limited/Unobtainable: Yes Subjective s/p extubation felt shae terminal Objective Last 24 Hour Vital Signs Date Time Temp Pulse Resp B/P (MAP) Pulse Ox O2 Delivery O2 Flow Rate FiO2 03/30/19 09:30 Simple Mask 30 03/30/19 09:30 30 03/30/19 09:06 116/49 03/30/19 08:49 74 14 30 03/30/19 08:00 30 03/30/19 08:00 98.8 75 24 123/52 (75) 99 03/30/19 08:00 Mechanical Ventilator Mechanical Ventilator Mechanical Ventilator 03/30/19 07:15 72 12 30 03/30/19 07:10 75 12 100 Mechanical Ventilator 30 03/30/19 07:00 73 12 100 Mechanical Ventilator 30 03/30/19 07:00 77 12 113/47 (69) 100 03/30/19 06:00 80 16 125/50 (75) 100 03/30/19 05:10 78 12 30 03/30/19 05:00 80 16 141/59 (86) 100 03/30/19 04:00 98.9 78 14 136/50 (78) 100 03/30/19 04:00 75 03/30/19 04:00 30 03/30/19 04:00 Mechanical Ventilator Mechanical Ventilator Mechanical Ventilator 03/30/19 03:41 75 12 100 Mechanical Ventilator 30 03/30/19 03:31 76 12 100 Mechanical Ventilator 30 03/30/19 03:30 76 12 30 03/30/19 03:00 78 11 121/50 (73) 100 03/30/19 02:00 81 12 143/56 (85) 100 03/30/19 01:25 77 16 30 03/30/19 01:00 78 13 111/42 (65) 100 03/30/19 00:03 78 14 100 Mechanical Ventilator 30 03/30/19 00:00 79 03/30/19 00:00 30 03/30/19 00:00 99.0 78 12 134/62 (86) 100 03/30/19 00:00 Mechanical Ventilator Mechanical Ventilator Mechanical Ventilator 03/29/19 23:53 79 14 100 Mechanical Ventilator 30 03/29/19 23:52 79 13 30 03/29/19 23:00 76 12 124/49 (74) 100 03/29/19 22:00 78 12 133/49 (77) 100 03/29/19 21:18 82 13 30 03/29/19 21:00 84 18 149/63 (91) 100 03/29/19 20:00 98.9 84 16 155/59 (91) 100 03/29/19 20:00 30 03/29/19 20:00 Mechanical Ventilator Mechanical Ventilator Mechanical Ventilator 03/29/19 20:00 84 03/29/19 19:35 84 12 100 Mechanical Ventilator 30 03/29/19 19:24 85 13 100 Mechanical Ventilator 30 03/29/19 19:23 85 13 30 03/29/19 19:00 86 18 165/66 (99) 100 03/29/19 18:00 82 14 124/48 (73) 100 03/29/19 17:02 80 19 30 03/29/19 17:00 80 17 143/61 (88) 100 03/29/19 16:00 98.6 76 14 116/48 (70) 100 03/29/19 16:00 Mechanical Ventilator Mechanical Ventilator Mechanical Ventilator 03/29/19 16:00 30 03/29/19 16:00 78 03/29/19 15:23 77 16 100 Mechanical Ventilator 30 03/29/19 15:13 75 17 100 Mechanical Ventilator 30 03/29/19 15:09 75 17 30 03/29/19 15:00 75 12 111/60 (77) 100 03/29/19 14:00 73 17 119/46 (70) 100 03/29/19 13:00 73 17 113/47 (69) 100 03/29/19 12:37 73 12 30 03/29/19 12:00 30 03/29/19 12:00 Mechanical Ventilator Mechanical Ventilator Mechanical Ventilator 03/29/19 12:00 98.8 74 17 131/53 (79) 99 03/29/19 12:00 74 03/29/19 11:39 73 14 100 Mechanical Ventilator 30 03/29/19 11:29 74 13 100 Mechanical Ventilator 30 03/29/19 11:28 74 13 30 03/29/19 11:00 76 15 119/49 72 100 General Appearance: no apparent distress, patient on isolation Intake and Output 03/29/19 03/30/19 19:00 07:00 Intake Total 1806.6645 ml 1320 ml Output Total 865 ml 765 ml Balance 941.6645 ml 555 ml Free Water 160 ml 300 ml IV Total 926.6645 ml 360 ml Tube Feeding 720 ml 660 ml Output Urine Total 865 ml 765 ml Allen Bliss MD Mar 30, 2019 10:38
--- NOTE | 2019-03-30 11:55 | Diagnostic Imaging Report ---
Indication: Dyspnea Technique: One view of the chest Comparison: 03/28/2019 Findings: Stable satisfactory endotracheal intubation. Bilateral pleural effusions, right basilar consolidation or atelectasis, generalized interstitial congestion persists. The heart remains enlarged Impression: Unchanged, over 2 days, findings as above.
--- NOTE | 2019-03-30 12:56 | Nephrology Progress Note ---
Assessment/Plan Problem List: (1) Systolic heart failure (2) Dyspnea (3) Respiratory failure (4) Respiratory distress (5) Septic shock (6) Diabetes (7) CVA, old, hemiparesis (8) Hypokalemia (9) COLLIN (acute kidney injury) (10) Hypernatremia Plan restarted diuresis bumex , increase water flushes observe Na 149 epeat 147 now 143 145 144 d5w 30/hr will dc kcl with bumex Subjective ROS Limited/Unobtainable: Yes Objective Objective Last 24 Hour Vital Signs Date Time Temp Pulse Resp B/P (MAP) Pulse Ox O2 Delivery O2 Flow Rate FiO2 03/30/19 11:00 78 20 126/51 (76) 98 03/30/19 10:53 78 14 100 Simple Mask 30 03/30/19 10:42 44 14 99 Simple Mask 30 03/30/19 10:00 77 25 123/48 (73) 97 03/30/19 09:30 Simple Mask 30 03/30/19 09:30 30 03/30/19 09:06 116/49 03/30/19 09:00 78 12 116/49 (71) 100 03/30/19 08:49 74 14 30 03/30/19 08:17 78 03/30/19 08:00 30 03/30/19 08:00 98.8 75 24 123/52 (75) 99 03/30/19 08:00 Mechanical Ventilator Mechanical Ventilator Mechanical Ventilator 03/30/19 07:15 72 12 30 03/30/19 07:10 75 12 100 Mechanical Ventilator 30 03/30/19 07:00 73 12 100 Mechanical Ventilator 30 03/30/19 07:00 77 12 113/47 (69) 100 03/30/19 06:00 80 16 125/50 (75) 100 03/30/19 05:10 78 12 30 03/30/19 05:00 80 16 141/59 (86) 100 03/30/19 04:00 98.9 78 14 136/50 (78) 100 03/30/19 04:00 75 03/30/19 04:00 30 03/30/19 04:00 Mechanical Ventilator Mechanical Ventilator Mechanical Ventilator 03/30/19 03:41 75 12 100 Mechanical Ventilator 30 03/30/19 03:31 76 12 100 Mechanical Ventilator 30 03/30/19 03:30 76 12 30 03/30/19 03:00 78 11 121/50 (73) 100 03/30/19 02:00 81 12 143/56 (85) 100 03/30/19 01:25 77 16 30 03/30/19 01:00 78 13 111/42 (65) 100 03/30/19 00:03 78 14 100 Mechanical Ventilator 30 03/30/19 00:00 79 03/30/19 00:00 30 03/30/19 00:00 99.0 78 12 134/62 (86) 100 03/30/19 00:00 Mechanical Ventilator Mechanical Ventilator Mechanical Ventilator 03/29/19 23:53 79 14 100 Mechanical Ventilator 30 03/29/19 23:52 79 13 30 03/29/19 23:00 76 12 124/49 (74) 100 03/29/19 22:00 78 12 133/49 (77) 100 03/29/19 21:18 82 13 30 03/29/19 21:00 84 18 149/63 (91) 100 03/29/19 20:00 98.9 84 16 155/59 (91) 100 03/29/19 20:00 30 03/29/19 20:00 Mechanical Ventilator Mechanical Ventilator Mechanical Ventilator 03/29/19 20:00 84 03/29/19 19:35 84 12 100 Mechanical Ventilator 30 03/29/19 19:24 85 13 100 Mechanical Ventilator 30 03/29/19 19:23 85 13 30 03/29/19 19:00 86 18 165/66 (99) 100 03/29/19 18:00 82 14 124/48 (73) 100 03/29/19 17:02 80 19 30 03/29/19 17:00 80 17 143/61 (88) 100 03/29/19 16:00 98.6 76 14 116/48 (70) 100 03/29/19 16:00 Mechanical Ventilator Mechanical Ventilator Mechanical Ventilator 03/29/19 16:00 30 03/29/19 16:00 78 03/29/19 15:23 77 16 100 Mechanical Ventilator 30 03/29/19 15:13 75 17 100 Mechanical Ventilator 30 03/29/19 15:09 75 17 30 03/29/19 15:00 75 12 111/60 (77) 100 03/29/19 14:00 73 17 119/46 (70) 100 03/29/19 13:00 73 17 113/47 (69) 100 Intake and Output 03/29/19 03/30/19 19:00 07:00 Intake Total 1806.6645 ml 1320 ml Output Total 865 ml 815 ml Balance 941.6645 ml 505 ml Free Water 160 ml 300 ml IV Total 926.6645 ml 360 ml Tube Feeding 720 ml 660 ml Output Urine Total 865 ml 815 ml Laboratory Tests 03/30/19 10:50: Vancomycin Level Trough 12.2H Height (Feet): 5 Height (Inches): 8.00 Weight (Pounds): 175 General Appearance: lethargic EENT: normal ENT inspection Neck: normal alignment Cardiovascular: regular rhythm Respiratory/Chest: rhonchi - bilaterally Abdomen: soft Extremities: moderate edema Lamberto Álvarez MD Mar 30, 2019 12:56
[2019-03-30] MEDS ORDERED: Vancomycin 1gm/D5W 275ml IVPB SCH ×2 (13:00)
[2019-03-30] MEDS: Amikacin 1,000 MG in NS 110 ML IV SCH (14:02)
--- NOTE | 2019-03-30 14:59 | Infectious Diseases Prog Note ---
Assessment/Plan Assessment/Plan ASSESSMENT/PLAN: 1. 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 Respiratory failure, on vent - weaning per pulmonary 3. Diabetes. 4. Hypertension. 5. Blood sugar and blood pressure treatment per primary for diabetes and hypertension. 6. Atrial fibrillation. 7. Heart failure. 8. G-tube. 9. Skin care protocol. 10. Cardiomegaly. 11. CAD and HI. 12. Hyperlipidemia. 13. Seizure disorder. 14. GERD. 15. History of CVA. 16. Allergic to penicillin and sulfa, tolerates meropenem. 17. Social history is negative. 18. Family history is noncontributory. 19. MAR is noted. 20. Case discussed with Dr. Franks. 21. Continue treatment per primary consultants. Subjective Constitutional: Reports: other - s/p terminal extubation, no pressors, on bm; Denies: fever HEENT: Reports: congestion Respiratory: Reports: shortness of breath - sob Cardiovascular: Reports: other - no pressors Gastrointestinal/Abdominal: Denies: nausea, vomiting, diarrhea Genitourinary: Reports: other - + macias Neurologic: Reports: weakness, other - lethargic Psychiatric: Reports: other - na Skin: Denies: rash Hematologic: Denies: bleeding Musculoskeletal: Reports: other - na Allergies: Coded Allergies: PENICILLINS (Verified Allergy, Unknown, 02/04/18) SULFA (SULFONAMIDE ANTIBIOTICS) (Verified Allergy, Unknown, 02/04/18) SULFACETAMIDE (Unverified Allergy, Unknown, 06/24/18) Objective Vital Signs Last 24 Hour Vital Signs Date Time Temp Pulse Resp B/P (MAP) Pulse Ox O2 Delivery O2 Flow Rate FiO2 03/30/19 14:00 77 19 122/49 (73) 100 03/30/19 13:00 79 20 120/51 (74) 99 03/30/19 12:26 81 03/30/19 12:00 98.7 79 21 129/48 (75) 100 03/30/19 12:00 79 21 129/48 (75) 100 6/4/19 12:00 Simple Mask 8.0 Simple Mask 8.0 Simple Mask 8.0 03/30/19 11:00 78 20 126/51 (76) 98 03/30/19 10:53 78 14 100 Simple Mask 30 03/30/19 10:42 44 14 99 Simple Mask 30 03/30/19 10:00 77 25 123/48 (73) 97 03/30/19 09:30 Simple Mask 30 03/30/19 09:30 Mechanical Ventilator Mechanical Ventilator Mechanical Ventilator 03/30/19 09:30 30 03/30/19 09:06 116/49 03/30/19 09:00 78 12 116/49 (71) 100 03/30/19 08:49 74 14 30 03/30/19 08:17 78 03/30/19 08:00 30 03/30/19 08:00 98.8 75 24 123/52 (75) 99 03/30/19 08:00 Mechanical Ventilator Mechanical Ventilator Mechanical Ventilator 03/30/19 07:15 72 12 30 03/30/19 07:10 75 12 100 Mechanical Ventilator 30 03/30/19 07:00 73 12 100 Mechanical Ventilator 30 03/30/19 07:00 77 12 113/47 (69) 100 03/30/19 06:00 80 16 125/50 (75) 100 03/30/19 05:10 78 12 30 03/30/19 05:00 80 16 141/59 (86) 100 03/30/19 04:00 98.9 78 14 136/50 (78) 100 03/30/19 04:00 75 03/30/19 04:00 30 03/30/19 04:00 Mechanical Ventilator Mechanical Ventilator Mechanical Ventilator 03/30/19 03:41 75 12 100 Mechanical Ventilator 30 03/30/19 03:31 76 12 100 Mechanical Ventilator 30 03/30/19 03:30 76 12 30 03/30/19 03:00 78 11 121/50 (73) 100 03/30/19 02:00 81 12 143/56 (85) 100 03/30/19 01:25 77 16 30 03/30/19 01:00 78 13 111/42 (65) 100 03/30/19 00:03 78 14 100 Mechanical Ventilator 30 03/30/19 00:00 79 6/4/19 00:00 30 03/30/19 00:00 99.0 78 12 134/62 (86) 100 03/30/19 00:00 Mechanical Ventilator Mechanical Ventilator Mechanical Ventilator 03/29/19 23:53 79 14 100 Mechanical Ventilator 30 03/29/19 23:52 79 13 30 03/29/19 23:00 76 12 124/49 (74) 100 03/29/19 22:00 78 12 133/49 (77) 100 03/29/19 21:18 82 13 30 03/29/19 21:00 84 18 149/63 (91) 100 03/29/19 20:00 98.9 84 16 155/59 (91) 100 03/29/19 20:00 30 03/29/19 20:00 Mechanical Ventilator Mechanical Ventilator Mechanical Ventilator 03/29/19 20:00 84 03/29/19 19:35 84 12 100 Mechanical Ventilator 30 03/29/19 19:24 85 13 100 Mechanical Ventilator 30 03/29/19 19:23 85 13 30 03/29/19 19:00 86 18 165/66 (99) 100 03/29/19 18:00 82 14 124/48 (73) 100 03/29/19 17:02 80 19 30 03/29/19 17:00 80 17 143/61 (88) 100 03/29/19 16:00 98.6 76 14 116/48 (70) 100 03/29/19 16:00 Mechanical Ventilator Mechanical Ventilator Mechanical Ventilator 03/29/19 16:00 30 03/29/19 16:00 78 03/29/19 15:23 77 16 100 Mechanical Ventilator 30 03/29/19 15:13 75 17 100 Mechanical Ventilator 30 03/29/19 15:09 75 17 30 03/29/19 15:00 75 12 111/60 (77) 100 Height (Feet): 5 Height (Inches): 8.00 Weight (Pounds): 175 General Appearance: other - extubated, lethargic, + bm HEENT: normocephalic, atraumatic, anicteric, supple, no JVD Respiratory/Chest: crackles/rales, rhonchi - bilaterally Cardiovascular: normal rate, regular rhythm, no gallop/murmur, no JVD Abdomen: normal bowel sounds, soft, non tender, no organomegaly, non distended Genitourinary: other - + macias - urine slt cloudy Extremities: no cyanosis Skin: no rash 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 Findings: Endotracheal tube and right jugular line are stable. Mild pulmonary vascular congestion suspected. IMPRESSION: No change from the prior exam. Mild CHF suspected Chest x-ray - 03/17/19 - Comparison: 03/15/2019 A single view chest radiograph was obtained. Findings: Vascular congestion demonstrated. Tubes and lines are stable. Heart size is mildly enlarged and stable. Small right pleural effusion suspected. IMPRESSION: No change from the previous examination. Suspected CHF Chest x-ray - 03/22/19 - IMPRESSION: 1. Worsening small right pleural effusion. Similar small left pleural effusion. 2. Increased right lower lung atelectasis/airspace disease and similar left lung base opacity. Chest x-ray - 03/25/19- Procedure: XRAY Chest 1v Indication: Shortness of breath Technique: One view of the chest Comparison: 03/24/2019 Findings: Interim removal of previously demonstrated right jugular central venous catheter. Post PICC radiograph left arm PICC remains Bilateral right greater than left pleural effusions are again demonstrated. The heart size is on preliminary normal. Impression: Interim central venous catheter removal. Otherwise little exchange consultant one day, findings as noted 03/26/19 - chest x-ray - no change, report noted Chest x-ray - 03/30/19: Technique: One view of the chest Comparison: 03/28/2019 Findings: Stable satisfactory endotracheal intubation. Bilateral pleural effusions, right basilar consolidation or atelectasis, generalized interstitial congestion persists. The heart remains enlarged Impression: Unchanged, over 2 days, findings as above. Microbiology Date/Time Source Procedure Growth Status 03/09/19 14:10 Blood Blood Culture - Final Staphylococcus Sp Coag Neg Complete 03/25/19 19:00 Sputum Induced Gram Stain - Final Complete 03/25/19 19:00 Sputum Culture - Final Pseudomonas Aeruginosa Complete 03/26/19 18:40 Urine,Clean Catch Urine Culture - Final [place] Glabrata Complete 03/09/19 14:35 Rectum VRE Culture - Final NO VANCOMYCIN RESISTANT ENTEROCOCCUS ... Complete 03/09/19 14:35 Rectum - Final NO CARBAPENEM-RESISTANT ENTEROBACTERI... Complete Labs Test 03/28/19 04:30 03/29/19 04:09 03/30/19 10:50 White Blood Count 7.5 K/UL (4.8-10.8) 6.6 K/UL (4.8-10.8) Red Blood Count 2.71 M/UL (4.20-5.40) 2.62 M/UL (4.20-5.40) Hemoglobin 9.2 G/DL (12.0-16.0) 8.8 G/DL (12.0-16.0) Hematocrit 27.3 % (37.0-47.0) 26.9 % (37.0-47.0) Mean Corpuscular Volume 101 FL (80-99) 103 FL (80-99) Mean Corpuscular Hemoglobin 33.8 PG (27.0-31.0) 33.6 PG (27.0-31.0) Mean Corpuscular Hemoglobin Concent 33.5 G/DL (32.0-36.0) 32.8 G/DL (32.0-36.0) Red Cell Distribution Width 14.2 % (11.6-14.8) 14.7 % (11.6-14.8) Platelet Count 138 K/UL (150-450) 141 K/UL (150-450) Mean Platelet Volume 8.1 FL (6.5-10.1) 9.0 FL (6.5-10.1) Neutrophils (%) (Auto) 60.6 % (45.0-75.0) 59.7 % (45.0-75.0) Lymphocytes (%) (Auto) 22.0 % (20.0-45.0) 23.3 % (20.0-45.0) Monocytes (%) (Auto) 8.5 % (1.0-10.0) 9.3 % (1.0-10.0) Eosinophils (%) (Auto) 8.0 % (0.0-3.0) 6.6 % (0.0-3.0) Basophils (%) (Auto) 0.9 % (0.0-2.0) 1.1 % (0.0-2.0) Sodium Level 145 MMOL/L (136-145) 144 MMOL/L (136-145) Potassium Level 4.1 MMOL/L (3.5-5.1) 3.9 MMOL/L (3.5-5.1) Chloride Level 107 MMOL/L (98-107) 107 MMOL/L (98-107) Carbon Dioxide Level 34 MMOL/L (21-32) 33 MMOL/L (21-32) Anion Gap 4 mmol/L (5-15) 4 mmol/L (5-15) Blood Urea Nitrogen 17 mg/dL (7-18) 16 mg/dL (7-18) Creatinine 0.7 MG/DL (0.55-1.30) 0.7 MG/DL (0.55-1.30) Estimat Glomerular Filtration Rate mL/min (>60) mL/min (>60) Glucose Level 137 MG/DL (74-106) 141 MG/DL (74-106) Calcium Level 8.5 MG/DL (8.5-10.1) 8.6 MG/DL (8.5-10.1) Vancomycin Level Trough 12.2 ug/mL (5.0-12.0) Laboratory Tests Test 03/30/19 10:50 Vancomycin Level Trough 12.2 ug/mL (5.0-12.0) H Current Medications Medications (Trade) Dose Ordered Sig/Singh Route PRN Reason Start Time Stop Time Status Last Admin Dose Admin Acetaminophen (Tylenol) 650 mg Q4H PRN GT Mild Pain/Temp > 100.5 03/09/19 20:30 04/08/19 20:29 03/26/19 12:18 Albuterol/ Ipratropium (Albuterol/ Ipratropium) 3 ml Q4HRT HHN 03/25/19 19:00 03/30/19 18:59 03/30/19 10:42 Amikacin Protocol (Amikacin pharmacy to dose) 1 ea DAILY PRN MISC Per rx protocol 03/24/19 11:30 04/23/19 11:29 Amikacin Sulfate 1000 mg/Sodium Chloride 114 ml @ 228 mls/hr Q36H IV 03/26/19 02:00 04/02/19 01:59 03/30/19 14:02 Bumetanide (Bumex) 2 mg BID IVP 03/28/19 18:00 04/27/19 17:59 03/30/19 09:06 Cefepime HCl 1 gm/ Dextrose 50 ml @ 100 mls/hr Q24H IVPB 03/25/19 17:00 04/01/19 16:59 03/29/19 17:33 Chlorhexidine Gluconate (Azra-Hex 2%) 1 applic DAILY@2000 TOPIC 03/10/19 20:00 04/09/19 19:59 03/29/19 19:49 Dextrose (Dextrose 50%) 25 ml Q30M PRN IV Hypoglycemia 03/09/19 21:00 04/08/19 20:59 Dextrose (Dextrose 50%) 50 ml Q30M PRN IV Hypoglycemia 03/09/19 21:00 04/08/19 20:59 Insulin Aspart (NovoLOG) EVERY 6 HOURS SUBQ 03/10/19 00:00 04/09/19 00:00 03/30/19 12:46 Lansoprazole (Prevacid) 30 mg DAILY GT 03/25/19 09:00 04/24/19 08:59 03/30/19 09:06 Lisinopril (Zestril) 10 mg DAILY GT 03/25/19 09:00 04/19/19 08:59 03/30/19 09:06 Metronidazole 100 ml @ 100 mls/hr Q8HR IVPB 03/25/19 14:00 04/01/19 13:59 03/30/19 14:02 Morphine Sulfate (Morphine Sulfate) 4 mg Q3H PRN IVP For Pain 03/30/19 08:45 04/06/19 08:44 03/30/19 09:06 Phenytoin (Dilantin) 125 mg Q12HR GT 03/09/19 21:00 04/08/19 20:59 03/30/19 09:05 Potassium Chloride (K-Dur) 40 meq DAILY GT 03/26/19 21:15 04/25/19 21:14 03/30/19 09:06 Vancomycin HCl (Vanco rx to dose) 1 ea DAILY PRN MISC Per rx protocol 03/24/19 11:30 04/23/19 11:29 Vancomycin HCl 1 gm/Dextrose 275 ml @ 183.708 mls/hr Q24H IVPB 03/30/19 13:00 04/04/19 12:59 03/30/19 13:23 Prashanth Osborne MD Mar 30, 2019 14:59
--- NOTE | 2019-03-30 15:25 | Pulmonology Progress Note ---
Assessment/Plan Assessment/Plan 1. Acute respiratory failure, improved 2. Severe dehydration with shock. 3. Severe hypernatremia. 4. Multi-infarct dementia. 5. Possible acute myocardial infarction. 6. CHF 7. History of atrial fibrillation. 8. Gastric tube with dysphagia. 9. History of chronic obstructive pulmonary disease. 10. History of seizures with therapeutic Dilantin level. 11. History of hypertension. 12. Hyperlipidemia. 13. Diabetes. 14. Sepsis - [employer] bacteremia family here for extubation looks like she will survive off vent ordered morphine prn distress or pain Subjective ROS Limited/Unobtainable: Yes Allergies: Coded Allergies: PENICILLINS (Verified Allergy, Unknown, 02/04/18) SULFA (SULFONAMIDE ANTIBIOTICS) (Verified Allergy, Unknown, 02/04/18) SULFACETAMIDE (Unverified Allergy, Unknown, 06/24/18) Objective Last 24 Hour Vital Signs Date Time Temp Pulse Resp B/P (MAP) Pulse Ox O2 Delivery O2 Flow Rate FiO2 03/30/19 15:00 73 19 94/48 (63) 100 03/30/19 14:00 77 19 122/49 (73) 100 03/30/19 13:00 79 20 120/51 (74) 99 03/30/19 12:26 81 03/30/19 12:00 98.7 79 21 129/48 (75) 100 03/30/19 12:00 79 21 129/48 (75) 100 03/30/19 12:00 Simple Mask 8.0 Simple Mask 8.0 Simple Mask 8.0 03/30/19 11:00 78 20 126/51 (76) 98 03/30/19 10:53 78 14 100 Simple Mask 30 03/30/19 10:42 44 14 99 Simple Mask 30 03/30/19 10:00 77 25 123/48 (73) 97 03/30/19 09:30 Simple Mask 30 03/30/19 09:30 Mechanical Ventilator Mechanical Ventilator Mechanical Ventilator 03/30/19 09:30 30 03/30/19 09:06 116/49 03/30/19 09:00 78 12 116/49 (71) 100 03/30/19 08:49 74 14 30 03/30/19 08:17 78 03/30/19 08:00 30 03/30/19 08:00 98.8 75 24 123/52 (75) 99 03/30/19 08:00 Mechanical Ventilator Mechanical Ventilator Mechanical Ventilator 03/30/19 07:15 72 12 30 03/30/19 07:10 75 12 100 Mechanical Ventilator 30 03/30/19 07:00 73 12 100 Mechanical Ventilator 30 03/30/19 07:00 77 12 113/47 (69) 100 03/30/19 06:00 80 16 125/50 (75) 100 03/30/19 05:10 78 12 30 03/30/19 05:00 80 16 141/59 (86) 100 03/30/19 04:00 98.9 78 14 136/50 (78) 100 03/30/19 04:00 75 03/30/19 04:00 30 03/30/19 04:00 Mechanical Ventilator Mechanical Ventilator Mechanical Ventilator 03/30/19 03:41 75 12 100 Mechanical Ventilator 30 03/30/19 03:31 76 12 100 Mechanical Ventilator 30 03/30/19 03:30 76 12 30 03/30/19 03:00 78 11 121/50 (73) 100 03/30/19 02:00 81 12 143/56 (85) 100 03/30/19 01:25 77 16 30 03/30/19 01:00 78 13 111/42 (65) 100 03/30/19 00:03 78 14 100 Mechanical Ventilator 30 03/30/19 00:00 79 03/30/19 00:00 30 03/30/19 00:00 99.0 78 12 134/62 (86) 100 03/30/19 00:00 Mechanical Ventilator Mechanical Ventilator Mechanical Ventilator 03/29/19 23:53 79 14 100 Mechanical Ventilator 30 03/29/19 23:52 79 13 30 03/29/19 23:00 76 12 124/49 (74) 100 03/29/19 22:00 78 12 133/49 (77) 100 03/29/19 21:18 82 13 30 03/29/19 21:00 84 18 149/63 (91) 100 03/29/19 20:00 98.9 84 16 155/59 (91) 100 03/29/19 20:00 30 03/29/19 20:00 Mechanical Ventilator Mechanical Ventilator Mechanical Ventilator 03/29/19 20:00 84 03/29/19 19:35 84 12 100 Mechanical Ventilator 30 03/29/19 19:24 85 13 100 Mechanical Ventilator 30 03/29/19 19:23 85 13 30 03/29/19 19:00 86 18 165/66 (99) 100 03/29/19 18:00 82 14 124/48 (73) 100 03/29/19 17:02 80 19 30 03/29/19 17:00 80 17 143/61 (88) 100 03/29/19 16:00 98.6 76 14 116/48 (70) 100 03/29/19 16:00 Mechanical Ventilator Mechanical Ventilator Mechanical Ventilator 03/29/19 16:00 30 03/29/19 16:00 78 Intake and Output 03/29/19 03/30/19 19:00 07:00 Intake Total 1806.6645 ml 1320 ml Output Total 865 ml 815 ml Balance 941.6645 ml 505 ml Free Water 160 ml 300 ml IV Total 926.6645 ml 360 ml Tube Feeding 720 ml 660 ml Output Urine Total 865 ml 815 ml Objective GT General Appearance: no acute distress Respiratory/Chest: lungs clear, decreased breath sounds Cardiovascular: normal rate Laboratory Tests 03/30/19 10:50: Vancomycin Level Trough 12.2H Current Medications Medications (Trade) Dose Ordered Sig/Singh Route PRN Reason Start Time Stop Time Status Last Admin Dose Admin Acetaminophen (Tylenol) 650 mg Q4H PRN GT Mild Pain/Temp > 100.5 03/09/19 20:30 04/08/19 20:29 03/26/19 12:18 Albuterol/ Ipratropium (Albuterol/ Ipratropium) 3 ml Q4HRT HHN 03/25/19 19:00 03/30/19 18:59 03/30/19 10:42 Bumetanide (Bumex) 2 mg BID IVP 03/28/19 18:00 04/27/19 17:59 03/30/19 09:06 Cefepime HCl 1 gm/ Dextrose 50 ml @ 100 mls/hr Q24H IVPB 03/30/19 17:00 04/06/19 16:59 Chlorhexidine Gluconate (Azra-Hex 2%) 1 applic DAILY@2000 TOPIC 03/10/19 20:00 04/09/19 19:59 03/29/19 19:49 Dextrose (Dextrose 50%) 25 ml Q30M PRN IV Hypoglycemia 03/09/19 21:00 04/08/19 20:59 Dextrose (Dextrose 50%) 50 ml Q30M PRN IV Hypoglycemia 03/09/19 21:00 04/08/19 20:59 Fluconazole (Diflucan) 100 mg DAILY ORAL 03/30/19 16:00 04/06/19 15:59 Insulin Aspart (NovoLOG) EVERY 6 HOURS SUBQ 03/10/19 00:00 04/09/19 00:00 03/30/19 12:46 Lansoprazole (Prevacid) 30 mg DAILY GT 03/25/19 09:00 04/24/19 08:59 03/30/19 09:06 Lisinopril (Zestril) 10 mg DAILY GT 03/25/19 09:00 04/19/19 08:59 03/30/19 09:06 Metronidazole 100 ml @ 100 mls/hr Q8HR IVPB 03/30/19 22:00 04/06/19 21:59 Morphine Sulfate (Morphine Sulfate) 4 mg Q3H PRN IVP For Pain 03/30/19 08:45 04/06/19 08:44 03/30/19 09:06 Phenytoin (Dilantin) 125 mg Q12HR GT 03/09/19 21:00 04/08/19 20:59 03/30/19 09:05 Potassium Chloride (K-Dur) 40 meq DAILY GT 03/26/19 21:15 04/25/19 21:14 03/30/19 09:06 Vancomycin HCl (Vanco rx to dose) 1 ea DAILY PRN MISC Per rx protocol 03/24/19 11:30 04/23/19 11:29 Vancomycin HCl 1 gm/Dextrose 275 ml @ 183.708 mls/hr Q24H IVPB 03/30/19 13:00 04/04/19 12:59 03/30/19 13:23 Fernando Franks MD Mar 30, 2019 15:25
[2019-03-30] MEDS ORDERED: Fluconazole 100mg tab ORAL SCH (16:00)
[2019-03-30] MEDS ORDERED: Acetaminophen 650mg/20.3ml GT PRN (16:30)
[2019-03-30] MEDS: Fluconazole 100mg tab ORAL SCH (17:19)
[2019-03-30] MEDS: Dyna-Hex 2% Top Sol 2oz TOPIC SCH (21:04)
[2019-03-31] MEDS: NovoLOG Insulin Flexpen SUBQ SCH ×4 (00:23→17:43)
[2019-03-31 00:49] VITALS: BP 133/53
[2019-03-31] MEDS: Albuterol/Ipratropium 3ml neb HHN SCH ×6 (03:36→23:19)
[2019-03-31 04:25] VITALS: BP 121/60
[2019-03-31 08:00] VITALS: BP 123/78
[2019-03-31 08:18] LABS: BASOPHILS % (AUTO) 0.9 % (0.0-2.0); EOSINOPHILS % (AUTO) 8.3 % (0.0-3.0); HEMOGLOBIN 10.1 G/DL (12.0-16.0); LYMPHOCYTES % (AUTO) 23.8 % (20.0-45.0); MEAN CORPUSCULAR VOLUME 104 FL (80-99); MONOCYTES % (AUTO) 6.2 % (1.0-10.0); NEUTROPHILS % (AUTO) 60.8 % (45.0-75.0); PLATELET COUNT 154 K/UL (150-450); RED BLOOD COUNT 3.06 M/UL (4.20-5.40); RED CELL DISTRIBUTION WIDTH 14.6 % (11.6-14.8); WHITE BLOOD COUNT 6.5 K/UL (4.8-10.8)
[2019-03-31 08:34] LABS: ALANINE AMINOTRANSFERASE 10 U/L (12-78); ALBUMIN 2.2 G/DL (3.4-5.0); ALBUMIN/GLOBULIN RATIO 0.4 (1.0-2.7); ALKALINE PHOSPHATASE 102 U/L (46-116); ANION GAP 2 mmol/L (5-15); ASPARTATE AMINO TRANSFERASE 22 U/L (15-37); BILIRUBIN,TOTAL 0.3 MG/DL (0.2-1.0); BLOOD UREA NITROGEN 22 mg/dL (7-18); CALCIUM 9.1 MG/DL (8.5-10.1); CARBON DIOXIDE 37 MMOL/L (21-32); CHLORIDE 108 MMOL/L (98-107); CREATININE 0.7 MG/DL (0.55-1.30); POTASSIUM 4.1 MMOL/L (3.5-5.1); SODIUM 147 MMOL/L (136-145)
[2019-03-31] MEDS: Bumetanide 2.5mg/10ml Inj IVP SCH ×2 (10:11→16:51)
[2019-03-31] MEDS: Phenytoin Susp 100mg/4ml GT SCH ×2 (10:11→21:45)
[2019-03-31] MEDS: Lisinopril 10mg tab GT SCH (10:12)
[2019-03-31 12:00] VITALS: BP 149/68
[2019-03-31] MEDS: Vancomycin 1 GM in D5W 275 ML IVPB SCH (12:48)
--- NOTE | 2019-03-31 13:59 | Pulmonology Progress Note ---
Assessment/Plan Assessment/Plan 1. Acute respiratory failure, improved 2. Severe dehydration with shock. 3. Severe hypernatremia. 4. Multi-infarct dementia. 5. Possible acute myocardial infarction. 6. CHF 7. History of atrial fibrillation. 8. Gastric tube with dysphagia. 9. History of chronic obstructive pulmonary disease. 10. History of seizures with therapeutic Dilantin level. 11. History of hypertension. 12. Hyperlipidemia. 13. Diabetes. 14. Sepsis - [employer] bacteremia some accessory muscle use poorly responsive needs frequent suctioning prognosis poor disc w RN Subjective ROS Limited/Unobtainable: Yes Allergies: Coded Allergies: PENICILLINS (Verified Allergy, Unknown, 02/04/18) SULFA (SULFONAMIDE ANTIBIOTICS) (Verified Allergy, Unknown, 02/04/18) SULFACETAMIDE (Unverified Allergy, Unknown, 06/24/18) Objective Last 24 Hour Vital Signs Date Time Temp Pulse Resp B/P (MAP) Pulse Ox O2 Delivery O2 Flow Rate FiO2 03/31/19 12:00 97.7 81 20 149/68 (95) 97 03/31/19 11:19 68 16 98 Nasal Cannula 2.0 28 03/31/19 11:11 64 16 97 Nasal Cannula 2.0 28 03/31/19 10:12 123/78 03/31/19 08:00 97.4 87 20 123/78 (93) 96 03/31/19 07:29 72 18 98 Nasal Cannula 2.0 03/31/19 07:15 97 Nasal Cannula 2.0 28 03/31/19 07:15 68 18 97 Nasal Cannula 2.0 03/31/19 04:25 98.5 80 20 121/60 (80) 100 03/31/19 03:46 86 18 99 Nasal Cannula 2.0 28 03/31/19 03:37 80 20 99 Nasal Cannula 2.0 28 03/31/19 00:49 98.4 82 20 133/53 (79) 100 03/30/19 23:36 74 16 99 Nasal Cannula 2.0 28 03/30/19 23:26 75 20 98 Nasal Cannula 2.0 28 03/30/19 20:31 20 98 03/30/19 20:31 98.7 79 128/53 (78) 03/30/19 20:09 97 Nasal Cannula 2.0 03/30/19 20:08 77 20 97 Nasal Cannula 2.0 28 03/30/19 20:05 77 20 97 Nasal Cannula 2.0 28 03/30/19 18:00 97.7 79 20 113/55 (74) 99 03/30/19 16:00 98.6 77 23 129/79 (96) 100 03/30/19 16:00 Nasal Cannula 2.0 Nasal Cannula 2.0 Nasal Cannula 2.0 03/30/19 15:29 77 16 100 Nasal Cannula 2.0 28 03/30/19 15:15 80 18 100 Simple Mask 30 03/30/19 15:00 73 19 94/48 (63) 100 03/30/19 14:00 77 19 122/49 (73) 100 Intake and Output 03/30/19 03/31/19 19:00 07:00 Intake Total 790 ml 820 ml Output Total 560 ml 825 ml Balance 230 ml -5 ml Free Water 50 ml 200 ml IV Total 150 ml 200 ml Tube Feeding 540 ml 420 ml Other 50 ml Output Urine Total 560 ml 825 ml Objective GT General Appearance: no acute distress HEENT: atraumatic Respiratory/Chest: decreased breath sounds, accessory muscle use, rhonchi Cardiovascular: normal rate Abdomen: soft, non tender Laboratory Tests 03/31/19 07:13: White Blood Count 6.5, Red Blood Count 3.06L, Hemoglobin 10.1L, Hematocrit 32.0L , Mean Corpuscular Volume 104H, Mean Corpuscular Hemoglobin 32.9H, Mean Corpuscular Hemoglobin Concent 31.5L, Red Cell Distribution Width 14.6, Platelet Count 154, Mean Platelet Volume 9.5, Neutrophils (%) (Auto) 60.8, Lymphocytes (%) (Auto) 23.8, Monocytes (%) (Auto) 6.2, Eosinophils (%) (Auto) 8.3H, Basophils (%) (Auto) 0.9, Sodium Level 147H, Potassium Level 4.1, Chloride Level 108H, Carbon Dioxide Level 37H, Anion Gap 2L, Blood Urea Nitrogen 22H, Creatinine 0.7, Estimat Glomerular Filtration Rate , Glucose Level 165H, Calcium Level 9.1, Total Bilirubin 0.3, Aspartate Amino Transf (AST/ SGOT) 22, Alanine Aminotransferase (ALT/SGPT) 10L, Alkaline Phosphatase 102, Total Protein 7.5, Albumin 2.2L, Globulin 5.3, Albumin/Globulin Ratio 0.4L Current Medications Medications (Trade) Dose Ordered Sig/Singh Route PRN Reason Start Time Stop Time Status Last Admin Dose Admin Acetaminophen (Tylenol) 650 mg Q4H PRN GT Mild Pain/Temp > 100.5 03/30/19 16:30 04/08/19 20:29 Albuterol/ Ipratropium (Albuterol/ Ipratropium) 3 ml Q4HRT HHN 03/30/19 19:00 04/03/19 18:59 03/31/19 11:11 Bumetanide (Bumex) 2 mg BID IVP 03/30/19 18:00 04/27/19 17:59 03/31/19 10:11 Cefepime HCl 1 gm/ Dextrose 50 ml @ 100 mls/hr Q24H IVPB 03/30/19 17:00 04/06/19 16:59 03/30/19 17:20 Chlorhexidine Gluconate (Azra-Hex 2%) 1 applic DAILY@2000 TOPIC 03/30/19 20:00 04/09/19 19:59 03/30/19 21:04 Dextrose (Dextrose 50%) 25 ml Q30M PRN IV Hypoglycemia 03/30/19 16:00 04/08/19 20:59 Dextrose (Dextrose 50%) 50 ml Q30M PRN IV Hypoglycemia 03/30/19 16:00 04/08/19 20:59 Fluconazole (Diflucan) 100 mg Q24H ORAL 03/30/19 16:00 04/06/19 15:59 03/30/19 17:19 Insulin Aspart (NovoLOG) EVERY 6 HOURS SUBQ 03/30/19 18:00 04/09/19 00:00 03/31/19 12:22 Lansoprazole (Prevacid) 30 mg DAILY GT 03/31/19 09:00 04/24/19 08:59 03/31/19 10:12 Lisinopril (Zestril) 10 mg DAILY GT 03/31/19 09:00 04/19/19 08:59 03/31/19 10:12 Metronidazole 100 ml @ 100 mls/hr Q8HR IVPB 03/30/19 22:00 04/06/19 21:59 03/31/19 13:56 Morphine Sulfate (Morphine Sulfate) 4 mg Q3H PRN IVP Pain 02/03 or SOB 03/30/19 17:45 04/06/19 08:44 Phenytoin (Dilantin) 125 mg Q12HR GT 03/30/19 21:00 04/08/19 20:59 03/31/19 10:11 Potassium Chloride (K-Dur) 40 meq DAILY GT 03/31/19 09:00 04/25/19 21:14 03/31/19 10:12 Vancomycin HCl (Vanco rx to dose) 1 ea DAILY PRN MISC Per rx protocol 03/30/19 16:00 04/29/19 15:59 Vancomycin HCl 1 gm/Dextrose 275 ml @ 183.708 mls/hr Q24H IVPB 03/31/19 13:00 04/04/19 12:59 03/31/19 12:48 Fernando Franks MD Mar 31, 2019 13:59
[2019-03-31 16:00] VITALS: BP 168/85
--- NOTE | 2019-03-31 16:21 | Nephrology Progress Note ---
Assessment/Plan Problem List: (1) Systolic heart failure (2) Dyspnea (3) Respiratory failure (4) Respiratory distress (5) Septic shock (6) Diabetes (7) CVA, old, hemiparesis (8) Hypokalemia (9) COLLIN (acute kidney injury) (10) Hypernatremia Plan restarted diuresis bumex , increase water flushes observe Na 149 epeat 147 now 143 145 144 higher 147 but + fluid bal observe d5w 30/hr will dc kcl with bumex Subjective ROS Limited/Unobtainable: Yes Objective Objective Last 24 Hour Vital Signs Date Time Temp Pulse Resp B/P (MAP) Pulse Ox O2 Delivery O2 Flow Rate FiO2 03/31/19 12:00 97.7 81 20 149/68 (95) 97 03/31/19 11:19 68 16 98 Nasal Cannula 2.0 28 03/31/19 11:11 64 16 97 Nasal Cannula 2.0 28 03/31/19 10:12 123/78 03/31/19 08:00 97.4 87 20 123/78 (93) 96 03/31/19 07:29 72 18 98 Nasal Cannula 2.0 28 03/31/19 07:15 97 Nasal Cannula 2.0 28 03/31/19 07:15 68 18 97 Nasal Cannula 2.0 28 03/31/19 04:25 98.5 80 20 121/60 (80) 100 03/31/19 03:46 86 18 99 Nasal Cannula 2.0 28 03/31/19 03:37 80 20 99 Nasal Cannula 2.0 03/31/19 00:49 98.4 82 20 133/53 (79) 100 03/30/19 23:36 74 16 99 Nasal Cannula 2.0 28 03/30/19 23:26 75 20 98 Nasal Cannula 2.0 28 03/30/19 20:31 20 98 03/30/19 20:31 98.7 79 128/53 (78) 03/30/19 20:09 97 Nasal Cannula 2.0 28 03/30/19 20:08 77 20 97 Nasal Cannula 2.0 28 03/30/19 20:05 77 20 97 Nasal Cannula 2.0 28 03/30/19 18:00 97.7 79 20 113/55 (74) 99 Intake and Output 03/30/19 03/31/19 18:59 06:59 Intake Total 760 ml 880 ml Output Total 610 ml 825 ml Balance 150 ml 55 ml Free Water 50 ml 200 ml IV Total 180 ml 200 ml Tube Feeding 480 ml 480 ml Other 50 ml Output Urine Total 610 ml 825 ml Laboratory Tests 03/31/19 07:13: White Blood Count 6.5, Red Blood Count 3.06L, Hemoglobin 10.1L, Hematocrit 32.0L , Mean Corpuscular Volume 104H, Mean Corpuscular Hemoglobin 32.9H, Mean Corpuscular Hemoglobin Concent 31.5L, Red Cell Distribution Width 14.6, Platelet Count 154, Mean Platelet Volume 9.5, Neutrophils (%) (Auto) 60.8, Lymphocytes (%) (Auto) 23.8, Monocytes (%) (Auto) 6.2, Eosinophils (%) (Auto) 8.3H, Basophils (%) (Auto) 0.9, Sodium Level 147H, Potassium Level 4.1, Chloride Level 108H, Carbon Dioxide Level 37H, Anion Gap 2L, Blood Urea Nitrogen 22H, Creatinine 0.7, Estimat Glomerular Filtration Rate , Glucose Level 165H, Calcium Level 9.1, Total Bilirubin 0.3, Aspartate Amino Transf (AST/ SGOT) 22, Alanine Aminotransferase (ALT/SGPT) 10L, Alkaline Phosphatase 102, Total Protein 7.5, Albumin 2.2L, Globulin 5.3, Albumin/Globulin Ratio 0.4L Height (Feet): 5 Height (Inches): 8.00 Weight (Pounds): 180 General Appearance: lethargic, mild distress EENT: normal ENT inspection Neck: normal alignment Cardiovascular: regular rhythm Respiratory/Chest: rhonchi - bilaterally Abdomen: non tender, soft Extremities: moderate edema Neurologic: unresponsive Lamberto Álvarez MD Mar 31, 2019 16:21
[2019-03-31] MEDS: Fluconazole 100mg tab ORAL SCH (16:50)
[2019-03-31 20:00] VITALS: BP 131/62
[2019-03-31] MEDS: Dyna-Hex 2% Top Sol 2oz TOPIC SCH (21:44)
--- NOTE | 2019-03-31 23:47 | Neurology Progress Note ---
Interim History Interim History ROS Limited/Unobtainable: Yes Complaints: AMS Events: This visit was performed on March 31, [address] Melecio Tavarez Interim History Patient remains neurologically stable on unit following extubation with daughter at bedside. Review of Systems Neuro Review of Systems Neuro exam stable, with some increased lethargy. Objective Physical Exam Last Vital Signs Date Time Temp Pulse Resp B/P (MAP) Pulse Ox O2 Delivery O2 Flow Rate FiO2 03/31/19 23:19 77 18 98 Nasal Cannula 2.0 28 03/31/19 16:00 97.2 168/85 (112) Laboratory Tests Test 03/31/19 07:13 White Blood Count 6.5 K/UL (4.8-10.8) Red Blood Count 3.06 M/UL (4.20-5.40) L Hemoglobin 10.1 G/DL (12.0-16.0) L Hematocrit 32.0 % (37.0-47.0) L Mean Corpuscular Volume 104 FL (80-99) H Mean Corpuscular Hemoglobin 32.9 PG (27.0-31.0) H Mean Corpuscular Hemoglobin Concent 31.5 G/DL (32.0-36.0) L Red Cell Distribution Width 14.6 % (11.6-14.8) Platelet Count 154 K/UL (150-450) Mean Platelet Volume 9.5 FL (6.5-10.1) Neutrophils (%) (Auto) 60.8 % (45.0-75.0) Lymphocytes (%) (Auto) 23.8 % (20.0-45.0) Monocytes (%) (Auto) 6.2 % (1.0-10.0) Eosinophils (%) (Auto) 8.3 % (0.0-3.0) H Basophils (%) (Auto) 0.9 % (0.0-2.0) Sodium Level 147 MMOL/L (136-145) H Potassium Level 4.1 MMOL/L (3.5-5.1) Chloride Level 108 MMOL/L (98-107) H Carbon Dioxide Level 37 MMOL/L (21-32) H Anion Gap 2 mmol/L (5-15) L Blood Urea Nitrogen 22 mg/dL (7-18) H Creatinine 0.7 MG/DL (0.55-1.30) Estimat Glomerular Filtration Rate mL/min (>60) Glucose Level 165 MG/DL (74-106) H Calcium Level 9.1 MG/DL (8.5-10.1) Total Bilirubin 0.3 MG/DL (0.2-1.0) Aspartate Amino Transf (AST/SGOT) 22 U/L (15-37) Alanine Aminotransferase (ALT/SGPT) 10 U/L (12-78) L Alkaline Phosphatase 102 U/L (46-116) Total Protein 7.5 G/DL (6.4-8.2) Albumin 2.2 G/DL (3.4-5.0) L Globulin 5.3 g/dL Albumin/Globulin Ratio 0.4 (1.0-2.7) L General: well developed, well nourished Head: normocophalic, atraumatic Neck: no rigidity EENT: benign Neurologic Exam Mental Status: awake Cranial Nerve II: no papilledema Cranial Nerves III, IV, : PERRLA, EOMI Cranial Nerve VIII: normal hearing Cranial Nerve XII: tongue midline Motor System: other - Right sided hemiplegia with TF in leg and min withdrawal at shoulder / Left sided w/d and apparent full strength to noxious stimuli Sensory: other - Some indication of paresthesia requiring increased noxious stimuli on right side Gait: normal regular Objective Extubated yesterday, no respiratory distress- she is back to baseline MS - alert , tracking, non verbal. She is now making meaningful eye contact and tracking with her eyes. As per her granddaughter, she is now approximately back to her baseline - which was tracking people with her eyes, moving/ turning her head, she could be sounds but no formal speech. 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 Right facial weakness of whole face, including eye. Possible sensory loss on right side due to need for increased noxious stimulus to induce response. Right side plegic, with slight movement proximally > distally. Left side w/d and UE now in restraints because exhibiting full strength Impression/Recommendations Problems: (1) Acute encephalopathy Assessment & Plan: Still not following commands. As per granddaughter - she does not do this at baseline (2) Septic shock (3) Respiratory failure (4) Dementia (5) Altered level of consciousness (6) CVA, old, hemiparesis Assessment & Plan: CT Brain 03/09/19: Old left parietal and occipital infarct Moderate atrophy of the brain. 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 (7) Diabetes Status: stable, progressing, unchanged Diagnostic Impression Can consider MRI of brain now that extubated but this is not a priority study as patient is back to Baseline. Maintain Normoglycemia with ISS May start ASA HgB> 8 - dropping on CBC, track and trend Maintain normoglycemia with ISS Continue enteral feeding SBP< 140 Discussion with family regarding goals of care Recommendations Qshift neuro obs Abx as needed Replete/ Correct Lytes as necessary Not for reintubation Continue Phenytoin but no indication for increased dosage or addition of second line AED Prevent Delirium: Maintain sleep hygiene by making room dark at night and minimizing nighttime observations. Seroquel 25mg QD PRN for agitation- can be increased if necessary please avoid benzos, opioids, anticholinergic drugs if the goal of treatment is to wean- Ngozi Franklin N.P. Mar 31, 2019 23:47
[2019-04-01] VITALS: BP 134/58
[2019-04-01] MEDS: NovoLOG Insulin Flexpen SUBQ SCH ×5 (01:14→23:58)
[2019-04-01] MEDS: Albuterol/Ipratropium 3ml neb HHN SCH ×6 (02:24→23:07)
[2019-04-01 04:00] VITALS: BP 163/67
[2019-04-01 06:46] LABS: BASOPHILS % (AUTO) 1.2 % (0.0-2.0); EOSINOPHILS % (AUTO) 7.8 % (0.0-3.0); HEMATOCRIT 29.9 % (37.0-47.0); HEMOGLOBIN 9.4 G/DL (12.0-16.0); LYMPHOCYTES % (AUTO) 20.7 % (20.0-45.0); MEAN CORPUSCULAR VOLUME 104 FL (80-99); MONOCYTES % (AUTO) 8.4 % (1.0-10.0); NEUTROPHILS % (AUTO) 61.9 % (45.0-75.0); PLATELET COUNT 146 K/UL (150-450); RED BLOOD COUNT 2.87 M/UL (4.20-5.40); RED CELL DISTRIBUTION WIDTH 14.6 % (11.6-14.8); WHITE BLOOD COUNT 6.5 K/UL (4.8-10.8)
[2019-04-01 08:00] VITALS: BP 156/76
[2019-04-01] MEDS: Phenytoin Susp 100mg/4ml GT SCH ×2 (08:55→21:32)
[2019-04-01] MEDS: Lisinopril 10mg tab GT SCH (08:55)
[2019-04-01] MEDS: Bumetanide 2.5mg/10ml Inj IVP SCH (08:56)
[2019-04-01 12:00] VITALS: BP 138/70
[2019-04-01] MEDS: Vancomycin 1 GM in D5W 275 ML IVPB SCH (12:37)
--- NOTE | 2019-04-01 13:02 | Infectious Diseases Prog Note ---
Assessment/Plan Assessment/Plan ASSESSMENT/PLAN: 1. pseudomonas pna, sepsis, shock, hx esbl e.coli uti, hx providencia pna - mdr , acid dumper bacteremia, leukocytosis, fevers fungal uti - vancomycin, cefepime and flagyl day x 3 days - diflucan x 3 days - monitor labs and chest x-ray - fevers better - clinically less sob 2. Respiratory failure, on vent - weaning per pulmonary 3. Diabetes. 4. Hypertension. 5. Blood sugar and blood pressure treatment per primary for diabetes and hypertension. 6. Atrial fibrillation. 7. Heart failure. 8. G-tube. 9. Skin care protocol. 10. Cardiomegaly. 11. CAD and HI. 12. Hyperlipidemia. 13. Seizure disorder. 14. GERD. 15. History of CVA. 16. Allergic to penicillin and sulfa, tolerates meropenem. 17. Social history is negative. 18. Family history is noncontributory. 19. MAR is noted. 20. Case discussed with Dr. Franks. 21. Continue treatment per primary consultants. Subjective Constitutional: Reports: other - less sob; Denies: fever HEENT: Denies: congestion Respiratory: Denies: shortness of breath Cardiovascular: Denies: chest pain Gastrointestinal/Abdominal: Denies: nausea, vomiting, diarrhea Genitourinary: Reports: other - + macias - urine slt cloudy Neurologic: Denies: headache Psychiatric: Denies: depression Skin: Denies: rash Hematologic: Denies: bleeding Musculoskeletal: Denies: pain Allergies: Coded Allergies: PENICILLINS (Verified Allergy, Unknown, 02/04/18) SULFA (SULFONAMIDE ANTIBIOTICS) (Verified Allergy, Unknown, 02/04/18) SULFACETAMIDE (Unverified Allergy, Unknown, 06/24/18) Objective Vital Signs Last 24 Hour Vital Signs Date Time Temp Pulse Resp B/P (MAP) Pulse Ox O2 Delivery O2 Flow Rate FiO2 04/01/19 12:00 98.2 80 20 138/70 (92) 98 04/01/19 11:39 82 18 99 Nasal Cannula 2.0 28 04/01/19 11:33 77 18 98 Nasal Cannula 2.0 28 04/01/19 09:00 Nasal Cannula 2.0 04/01/19 08:55 156/76 04/01/19 08:16 80 18 99 Nasal Cannula 2.0 28 04/01/19 08:10 97 Nasal Cannula 2.0 28 04/01/19 08:10 68 16 96 Nasal Cannula 2.0 28 04/01/19 08:00 97.2 76 20 156/76 (102) 99 04/01/19 04:00 97.6 79 20 163/67 (99) 98 04/01/19 02:34 83 18 99 Nasal Cannula 2.0 28 04/01/19 02:24 82 18 99 Nasal Cannula 2.0 28 04/01/19 00:00 98.2 83 20 134/58 (83) 98 03/31/19 23:29 85 18 99 Nasal Cannula 2.0 28 03/31/19 23:19 77 18 98 Nasal Cannula 2.0 28 03/31/19 21:00 Nasal Cannula 2.0 03/31/19 20:00 83 18 98 Nasal Cannula 2.0 28 03/31/19 20:00 97.3 80 20 131/62 (85) 100 03/31/19 19:50 81 18 97 Nasal Cannula 2.0 28 03/31/19 19:49 97 Nasal Cannula 2.0 28 03/31/19 16:00 97.2 83 20 168/85 (112) 99 03/31/19 15:29 78 18 98 Nasal Cannula 2.0 28 03/31/19 15:20 68 16 96 Nasal Cannula 2.0 28 Height (Feet): 5 Height (Inches): 8.00 Weight (Pounds): 180 General Appearance: no acute distress HEENT: normocephalic, atraumatic, anicteric, mucous membranes moist Respiratory/Chest: lungs clear, no respiratory distress, crackles/rales - less , rhonchi - bilaterally - less Cardiovascular: normal rate, regular rhythm, no gallop/murmur, no JVD Abdomen: normal bowel sounds, soft, non tender, no organomegaly, non distended Genitourinary: other - + macias - urine clear Extremities: no cyanosis Skin: no rash Neurologic/Psychiatric: tea taster II-XII grossly normal, other - opens eyes Lymphatic: no neck adenopathy Musculoskeletal: no effusion Objective Chest x-ray - 03/15 - Comparison: 03/12/2019 A single view chest radiograph was obtained. Findings: Endotracheal tube and right jugular line are stable. Mild pulmonary vascular congestion suspected. IMPRESSION: No change from the prior exam. Mild CHF suspected Chest x-ray - 03/17/19 - Comparison: 03/15/2019 A single view chest radiograph was obtained. Findings: Vascular congestion demonstrated. Tubes and lines are stable. Heart size is mildly enlarged and stable. Small right pleural effusion suspected. IMPRESSION: No change from the previous examination. Suspected CHF Chest x-ray - 03/22/19 - IMPRESSION: 1. Worsening small right pleural effusion. Similar small left pleural effusion. 2. Increased right lower lung atelectasis/airspace disease and similar left lung base opacity. Chest x-ray - 03/25/19- Procedure: XRAY Chest 1v Indication: Shortness of breath Technique: One view of the chest Comparison: 03/24/2019 Findings: Interim removal of previously demonstrated right jugular central venous catheter. Post PICC radiograph left arm PICC remains Bilateral right greater than left pleural effusions are again demonstrated. The heart size is on preliminary normal. Impression: Interim central venous catheter removal. Otherwise little change management administrator one day, findings as noted 03/26/19 - chest x-ray - no change, report noted Chest x-ray - 03/30/19: Technique: One view of the chest Comparison: 03/28/2019 Findings: Stable satisfactory endotracheal intubation. Bilateral pleural effusions, right basilar consolidation or atelectasis, generalized interstitial congestion persists. The heart remains enlarged Impression: Unchanged, over 2 days, findings as above. Microbiology Date/Time Source Procedure Growth Status 03/09/19 14:10 Blood Blood Culture - Final Staphylococcus Sp Coag Neg Complete 03/25/19 19:00 Sputum Induced Gram Stain - Final Complete 03/25/19 19:00 Sputum Culture - Final Pseudomonas Aeruginosa Complete 03/26/19 18:40 Urine,Clean Catch Urine Culture - Final Mariposa Glabrata Complete 03/09/19 14:35 Rectum VRE Culture - Final NO VANCOMYCIN RESISTANT ENTEROCOCCUS ... Complete 03/09/19 14:35 Rectum - Final NO CARBAPENEM-RESISTANT ENTEROBACTERI... Complete Labs Test 03/30/19 10:50 03/31/19 07:13 04/01/19 06:00 Vancomycin Level Trough 12.2 ug/mL (5.0-12.0) White Blood Count 6.5 K/UL (4.8-10.8) 6.5 K/UL (4.8-10.8) Red Blood Count 3.06 M/UL (4.20-5.40) 2.87 M/UL (4.20-5.40) Hemoglobin 10.1 G/DL (12.0-16.0) 9.4 G/DL (12.0-16.0) Hematocrit 32.0 % (37.0-47.0) 29.9 % (37.0-47.0) Mean Corpuscular Volume 104 FL (80-99) 104 FL (80-99) Mean Corpuscular Hemoglobin 32.9 PG (27.0-31.0) 32.9 PG (27.0-31.0) Mean Corpuscular Hemoglobin Concent 31.5 G/DL (32.0-36.0) 31.6 G/DL (32.0-36.0) Red Cell Distribution Width 14.6 % (11.6-14.8) 14.6 % (11.6-14.8) Platelet Count 154 K/UL (150-450) 146 K/UL (150-450) Mean Platelet Volume 9.5 FL (6.5-10.1) 8.5 FL (6.5-10.1) Neutrophils (%) (Auto) 60.8 % (45.0-75.0) 61.9 % (45.0-75.0) Lymphocytes (%) (Auto) 23.8 % (20.0-45.0) 20.7 % (20.0-45.0) Monocytes (%) (Auto) 6.2 % (1.0-10.0) 8.4 % (1.0-10.0) Eosinophils (%) (Auto) 8.3 % (0.0-3.0) 7.8 % (0.0-3.0) Basophils (%) (Auto) 0.9 % (0.0-2.0) 1.2 % (0.0-2.0) Sodium Level 147 MMOL/L (136-145) Potassium Level 4.1 MMOL/L (3.5-5.1) Chloride Level 108 MMOL/L (98-107) Carbon Dioxide Level 37 MMOL/L (21-32) Anion Gap 2 mmol/L (5-15) Blood Urea Nitrogen 22 mg/dL (7-18) Creatinine 0.7 MG/DL (0.55-1.30) Estimat Glomerular Filtration Rate mL/min (>60) Glucose Level 165 MG/DL (74-106) Calcium Level 9.1 MG/DL (8.5-10.1) Total Bilirubin 0.3 MG/DL (0.2-1.0) Aspartate Amino Transf (AST/SGOT) 22 U/L (15-37) Alanine Aminotransferase (ALT/SGPT) 10 U/L (12-78) Alkaline Phosphatase 102 U/L (46-116) Total Protein 7.5 G/DL (6.4-8.2) Albumin 2.2 G/DL (3.4-5.0) Globulin 5.3 g/dL Albumin/Globulin Ratio 0.4 (1.0-2.7) Laboratory Tests Test 04/01/19 06:00 White Blood Count 6.5 K/UL (4.8-10.8) Red Blood Count 2.87 M/UL (4.20-5.40) L Hemoglobin 9.4 G/DL (12.0-16.0) L Hematocrit 29.9 % (37.0-47.0) L Mean Corpuscular Volume 104 FL (80-99) H Mean Corpuscular Hemoglobin 32.9 PG (27.0-31.0) H Mean Corpuscular Hemoglobin Concent 31.6 G/DL (32.0-36.0) L Red Cell Distribution Width 14.6 % (11.6-14.8) Platelet Count 146 K/UL (150-450) L Mean Platelet Volume 8.5 FL (6.5-10.1) Neutrophils (%) (Auto) 61.9 % (45.0-75.0) Lymphocytes (%) (Auto) 20.7 % (20.0-45.0) Monocytes (%) (Auto) 8.4 % (1.0-10.0) Eosinophils (%) (Auto) 7.8 % (0.0-3.0) H Basophils (%) (Auto) 1.2 % (0.0-2.0) Current Medications Medications (Trade) Dose Ordered Sig/Singh Route PRN Reason Start Time Stop Time Status Last Admin Dose Admin Acetaminophen (Tylenol) 650 mg Q4H PRN GT Mild Pain/Temp > 100.5 03/30/19 16:30 04/08/19 20:29 Albuterol/ Ipratropium (Albuterol/ Ipratropium) 3 ml Q4HRT HHN 03/30/19 19:00 04/03/19 18:59 04/01/19 11:37 Bumetanide (Bumex) 2 mg BID IVP 03/30/19 18:00 04/27/19 17:59 04/01/19 08:56 Cefepime HCl 1 gm/ Dextrose 50 ml @ 100 mls/hr Q24H IVPB 03/30/19 17:00 04/06/19 16:59 03/31/19 16:50 Chlorhexidine Gluconate (Azra-Hex 2%) 1 applic DAILY@2000 TOPIC 03/30/19 20:00 04/09/19 19:59 03/31/19 21:44 Dextrose (Dextrose 50%) 25 ml Q30M PRN IV Hypoglycemia 03/30/19 16:00 04/08/19 20:59 Dextrose (Dextrose 50%) 50 ml Q30M PRN IV Hypoglycemia 03/30/19 16:00 04/08/19 20:59 Fluconazole (Diflucan) 100 mg Q24H ORAL 03/30/19 16:00 04/06/19 15:59 03/31/19 16:50 Insulin Aspart (NovoLOG) EVERY 6 HOURS SUBQ 03/30/19 18:00 04/09/19 00:00 04/01/19 12:37 Lansoprazole (Prevacid) 30 mg DAILY GT 03/31/19 09:00 04/24/19 08:59 04/01/19 08:55 Lisinopril (Zestril) 10 mg DAILY GT 03/31/19 09:00 04/19/19 08:59 04/01/19 08:55 Metronidazole 100 ml @ 100 mls/hr Q8HR IVPB 03/30/19 22:00 04/06/19 21:59 04/01/19 06:03 Morphine Sulfate (Morphine Sulfate) 4 mg Q3H PRN IVP Pain /10 or SOB 03/30/19 17:45 04/06/19 08:44 Phenytoin (Dilantin) 125 mg Q12HR GT 03/30/19 21:00 04/08/19 20:59 04/01/19 08:55 Potassium Chloride (K-Dur) 40 meq DAILY GT 03/31/19 09:00 04/25/19 21:14 04/01/19 08:55 Vancomycin HCl (Vanco rx to dose) 1 ea DAILY PRN MISC Per rx protocol 03/30/19 16:00 04/29/19 15:59 Vancomycin HCl 1 gm/Dextrose 275 ml @ 183.708 mls/hr Q24H IVPB 03/31/19 13:00 04/04/19 12:59 04/01/19 12:37 Prashanth Osborne MD Apr 01, 2019 13:02
[2019-04-01] MEDS: Fluconazole 100mg tab ORAL SCH (14:53)
--- NOTE | 2019-04-01 14:54 | Nephrology Progress Note ---
Assessment/Plan Problem List: (1) Systolic heart failure (2) Dyspnea (3) Respiratory failure (4) Respiratory distress (5) Septic shock (6) Diabetes (7) CVA, old, hemiparesis (8) Hypokalemia (9) COLLIN (acute kidney injury) (10) Hypernatremia Plan restarted diuresis bumex , increase water flushes observe Na 149 epeat 147 now 143 145 144 higher 147 but + fluid bal observe d5w 30/hr will dc kcl with bumex--change to via tube Subjective ROS Limited/Unobtainable: Yes Objective Objective Last 24 Hour Vital Signs Date Time Temp Pulse Resp B/P (MAP) Pulse Ox O2 Delivery O2 Flow Rate FiO2 04/01/19 14:37 84 18 99 Nasal Cannula 2.0 28 04/01/19 14:30 74 18 98 Nasal Cannula 2.0 28 04/01/19 12:00 98.2 80 20 138/70 (92) 98 04/01/19 11:39 82 18 99 Nasal Cannula 2.0 28 04/01/19 11:33 77 18 98 Nasal Cannula 2.0 28 04/01/19 09:00 Nasal Cannula 2.0 04/01/19 08:55 156/76 04/01/19 08:16 80 18 99 Nasal Cannula 2.0 28 04/01/19 08:10 97 Nasal Cannula 2.0 28 04/01/19 08:10 68 16 96 Nasal Cannula 2.0 28 04/01/19 08:00 97.2 76 20 156/76 (102) 99 04/01/19 04:00 97.6 79 20 163/67 (99) 98 04/01/19 02:34 83 18 99 Nasal Cannula 2.0 28 04/01/19 02:24 82 18 99 Nasal Cannula 2.0 28 04/01/19 00:00 98.2 83 20 134/58 (83) 98 03/31/19 23:29 85 18 99 Nasal Cannula 2.0 28 03/31/19 23:19 77 18 98 Nasal Cannula 2.0 28 03/31/19 21:00 Nasal Cannula 2.0 03/31/19 20:00 83 18 98 Nasal Cannula 2.0 28 03/31/19 20:00 97.3 80 20 131/62 (85) 100 03/31/19 19:50 81 18 97 Nasal Cannula 2.0 28 03/31/19 19:49 97 Nasal Cannula 2.0 28 03/31/19 16:00 97.2 83 20 168/85 (112) 99 03/31/19 15:29 78 18 98 Nasal Cannula 2.0 28 03/31/19 15:20 68 16 96 Nasal Cannula 2.0 28 Intake and Output 03/31/19 04/01/19 19:00 07:00 Intake Total 1177.416 ml 480 ml Output Total 1325 ml 1600 ml Balance -147.584 ml -1120 ml Free Water 600 ml IV Total 517.416 ml Tube Feeding 60 ml 480 ml Output Urine Total 1325 ml 1600 ml Laboratory Tests 04/01/19 06:00: White Blood Count 6.5, Red Blood Count 2.87L, Hemoglobin 9.4L, Hematocrit 29.9L , Mean Corpuscular Volume 104H, Mean Corpuscular Hemoglobin 32.9H, Mean Corpuscular Hemoglobin Concent 31.6L, Red Cell Distribution Width 14.6, Platelet Count 146L, Mean Platelet Volume 8.5, Neutrophils (%) (Auto) 61.9, Lymphocytes (%) (Auto) 20.7, Monocytes (%) (Auto) 8.4, Eosinophils (%) (Auto) 7.8H, Basophils (%) (Auto) 1.2 Height (Feet): 5 Height (Inches): 8.00 Weight (Pounds): 180 General Appearance: lethargic EENT: normal ENT inspection Neck: normal alignment Cardiovascular: regular rhythm Respiratory/Chest: rhonchi - bilaterally Abdomen: non tender Extremities: moderate edema Neurologic: unresponsive Lamberto Álvarez MD Apr 01, 2019 14:54
[2019-04-01 16:00] VITALS: BP 136/67
--- NOTE | 2019-04-01 16:17 | Pulmonology Progress Note ---
Assessment/Plan Assessment/Plan 1. Acute respiratory failure, improved 2. Severe dehydration with shock. 3. Severe hypernatremia. 4. Multi-infarct dementia. 5. Possible acute myocardial infarction. 6. CHF 7. History of atrial fibrillation. 8. Gastric tube with dysphagia. 9. History of chronic obstructive pulmonary disease. 10. History of seizures with therapeutic Dilantin level. 11. History of hypertension. 12. Hyperlipidemia. 13. Diabetes. 14. 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 bacteremia no accessory muscle use poorly responsive needs frequent suctioning prognosis poor change to PO meds dc plan to snf tomorrow manisha w RN Subjective ROS Limited/Unobtainable: Yes Allergies: Coded Allergies: PENICILLINS (Verified Allergy, Unknown, 02/04/18) SULFA (SULFONAMIDE ANTIBIOTICS) (Verified Allergy, Unknown, 02/04/18) SULFACETAMIDE (Unverified Allergy, Unknown, 06/24/18) Objective Last 24 Hour Vital Signs Date Time Temp Pulse Resp B/P (MAP) Pulse Ox O2 Delivery O2 Flow Rate FiO2 04/01/19 14:37 84 18 99 Nasal Cannula 2.0 28 04/01/19 14:30 74 18 98 Nasal Cannula 2.0 28 04/01/19 12:00 98.2 80 20 138/70 (92) 98 04/01/19 11:39 82 18 99 Nasal Cannula 2.0 28 04/01/19 11:33 77 18 98 Nasal Cannula 2.0 28 04/01/19 09:00 Nasal Cannula 2.0 04/01/19 08:55 156/76 04/01/19 08:16 80 18 99 Nasal Cannula 2.0 28 04/01/19 08:10 97 Nasal Cannula 2.0 28 04/01/19 08:10 68 16 96 Nasal Cannula 2.0 28 04/01/19 08:00 97.2 76 20 156/76 (102) 99 04/01/19 04:00 97.6 79 20 163/67 (99) 98 04/01/19 02:34 83 18 99 Nasal Cannula 2.0 28 04/01/19 02:24 82 18 99 Nasal Cannula 2.0 28 04/01/19 00:00 98.2 83 20 134/58 (83) 98 03/31/19 23:29 85 18 99 Nasal Cannula 2.0 28 03/31/19 23:19 77 18 98 Nasal Cannula 2.0 28 03/31/19 21:00 Nasal Cannula 2.0 03/31/19 20:00 83 18 98 Nasal Cannula 2.0 28 03/31/19 20:00 97.3 80 20 131/62 (85) 100 03/31/19 19:50 81 18 97 Nasal Cannula 2.0 28 03/31/19 19:49 97 Nasal Cannula 2.0 28 Intake and Output 03/31/19 04/01/19 19:00 07:00 Intake Total 1177.416 ml 480 ml Output Total 1325 ml 1600 ml Balance -147.584 ml -1120 ml Free Water 600 ml IV Total 517.416 ml Tube Feeding 60 ml 480 ml Output Urine Total 1325 ml 1600 ml Objective GT General Appearance: no acute distress Respiratory/Chest: decreased breath sounds, rhonchi Cardiovascular: normal rate Laboratory Tests 04/01/19 06:00: White Blood Count 6.5, Red Blood Count 2.87L, Hemoglobin 9.4L, Hematocrit 29.9L , Mean Corpuscular Volume 104H, Mean Corpuscular Hemoglobin 32.9H, Mean Corpuscular Hemoglobin Concent 31.6L, Red Cell Distribution Width 14.6, Platelet Count 146L, Mean Platelet Volume 8.5, Neutrophils (%) (Auto) 61.9, Lymphocytes (%) (Auto) 20.7, Monocytes (%) (Auto) 8.4, Eosinophils (%) (Auto) 7.8H, Basophils (%) (Auto) 1.2 Current Medications Medications (Trade) Dose Ordered Sig/Singh Route PRN Reason Start Time Stop Time Status Last Admin Dose Admin Acetaminophen (Tylenol) 650 mg Q4H PRN GT Mild Pain/Temp > 100.5 03/30/19 16:30 04/08/19 20:29 Albuterol/ Ipratropium (Albuterol/ Ipratropium) 3 ml Q4HRT HHN 03/30/19 19:00 04/03/19 18:59 04/01/19 14:30 Bumetanide (Bumex) 1 mg BID GT 04/01/19 18:00 05/01/19 17:59 Cefepime HCl 1 gm/ Dextrose 50 ml @ 100 mls/hr Q24H IVPB 03/30/19 17:00 04/06/19 16:59 03/31/19 16:50 Chlorhexidine Gluconate (Azra-Hex 2%) 1 applic DAILY@2000 TOPIC 03/30/19 20:00 04/09/19 19:59 03/31/19 21:44 Dextrose (Dextrose 50%) 25 ml Q30M PRN IV Hypoglycemia 03/30/19 16:00 04/08/19 20:59 Dextrose (Dextrose 50%) 50 ml Q30M PRN IV Hypoglycemia 03/30/19 16:00 04/08/19 20:59 Fluconazole (Diflucan) 100 mg Q24H ORAL 03/30/19 16:00 04/06/19 15:59 04/01/19 14:53 Insulin Aspart (NovoLOG) EVERY 6 HOURS SUBQ 03/30/19 18:00 04/09/19 00:00 04/01/19 12:37 Lansoprazole (Prevacid) 30 mg DAILY GT 03/31/19 09:00 04/24/19 08:59 04/01/19 08:55 Lisinopril (Zestril) 10 mg DAILY GT 03/31/19 09:00 04/19/19 08:59 04/01/19 08:55 Metronidazole 100 ml @ 100 mls/hr Q8HR IVPB 03/30/19 22:00 04/06/19 21:59 04/01/19 14:53 Morphine Sulfate (Morphine Sulfate) 4 mg Q3H PRN IVP Pain /10 or SOB 03/30/19 17:45 04/06/19 08:44 Phenytoin (Dilantin) 125 mg Q12HR GT 03/30/19 21:00 04/08/19 20:59 04/01/19 08:55 Potassium Chloride (K-Dur) 40 meq DAILY GT 03/31/19 09:00 04/25/19 21:14 04/01/19 08:55 Vancomycin HCl (Vanco rx to dose) 1 ea DAILY PRN MISC Per rx protocol 03/30/19 16:00 04/29/19 15:59 Vancomycin HCl 1 gm/Dextrose 275 ml @ 183.708 mls/hr Q24H IVPB 03/31/19 13:00 04/04/19 12:59 04/01/19 12:37 Fernando Franks MD Apr 01, 2019 16:17
[2019-04-01] MEDS: Bumetanide 1mg tab GT SCH (17:23)
[2019-04-01 20:00] VITALS: BP 144/66
[2019-04-01] MEDS: Dyna-Hex 2% Top Sol 2oz TOPIC SCH (21:31)
[2019-04-01] MEDS: metroNIDAZOLE 500mg tab GT SCH (21:31)
--- NOTE | 2019-04-01 23:44 | Neurology Progress Note ---
Interim History Interim History ROS Limited/Unobtainable: Yes Complaints: AMS Events: This visit was performed on April 01, [address] Melecio Tavarez Interim History No Changes in exam or mental status- doing well off the vent and on unit. Objective Physical Exam Last Vital Signs Date Time Temp Pulse Resp B/P (MAP) Pulse Ox O2 Delivery O2 Flow Rate FiO2 04/01/19 23:20 80 18 99 Nasal Cannula 2.0 28 04/01/19 20:00 98.0 144/66 (92) Laboratory Tests Test 04/01/19 06:00 White Blood Count 6.5 K/UL (4.8-10.8) Red Blood Count 2.87 M/UL (4.20-5.40) L Hemoglobin 9.4 G/DL (12.0-16.0) L Hematocrit 29.9 % (37.0-47.0) L Mean Corpuscular Volume 104 FL (80-99) H Mean Corpuscular Hemoglobin 32.9 PG (27.0-31.0) H Mean Corpuscular Hemoglobin Concent 31.6 G/DL (32.0-36.0) L Red Cell Distribution Width 14.6 % (11.6-14.8) Platelet Count 146 K/UL (150-450) L Mean Platelet Volume 8.5 FL (6.5-10.1) Neutrophils (%) (Auto) 61.9 % (45.0-75.0) Lymphocytes (%) (Auto) 20.7 % (20.0-45.0) Monocytes (%) (Auto) 8.4 % (1.0-10.0) Eosinophils (%) (Auto) 7.8 % (0.0-3.0) H Basophils (%) (Auto) 1.2 % (0.0-2.0) General: well developed, well nourished Head: normocophalic, atraumatic Neck: no rigidity EENT: benign Neurologic Exam Mental Status: awake, alert Cranial Nerve II: no papilledema Cranial Nerves III, IV, : PERRLA, EOMI Cranial Nerve V: normal facial sensations, temporales function normal, masseters function normal Cranial Nerve VIII: normal hearing Cranial Nerve XII: tongue midline Motor System: normal muscle tone, other - Right sided hemiplegia with TF in leg and min withdrawal at shoulder / Left sided w/d and apparent full strength to noxious stimuli Sensory: other - Some indication of paresthesia requiring increased noxious stimuli on right side Gait: normal regular Objective Extubated, no respiratory distress- she is back to baseline MS - alert, tracking , non verbal. She is now making meaningful eye contact and tracking with her eyes. As per her granddaughter, she is now approximately back to her baseline - which was tracking people with her eyes, moving/ turning her head, she could be sounds but no formal speech. 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 Right facial weakness of whole face, including eye. Possible sensory loss on right side due to need for increased noxious stimulus to induce response. Right side plegic, with slight movement proximally > distally. Left side w/d and UE now in restraints because exhibiting full strength Impression/Recommendations Problems: (1) Acute encephalopathy Assessment & Plan: Still not following commands. As per granddaughter - she does not do this at baseline (2) Septic shock (3) Respiratory failure (4) Dementia (5) Altered level of consciousness (6) CVA, old, hemiparesis Assessment & Plan: CT Brain 03/09/19: Old left parietal and occipital infarct Moderate atrophy of the brain. 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 (7) Diabetes Status: stable, progressing, unchanged Diagnostic Impression Can consider MRI of brain now that extubated but this is not a priority study as patient is back to Baseline. Maintain Normoglycemia with ISS May start ASA HgB> 8 - dropping on CBC, track and trend Maintain normoglycemia with ISS Continue enteral feeding SBP< 140 Discussion with family regarding goals of care Recommendations Qshift neuro obs Abx as needed Replete/ Correct Lytes as necessary Not for reintubation Continue Phenytoin but no indication for increased dosage or addition of second line AED Prevent Delirium: Maintain sleep hygiene by making room dark at night and minimizing nighttime observations. Seroquel 25mg QD PRN for agitation- can be increased if necessary please avoid benzos, opioids, anticholinergic drugs if the goal of treatment is to wean- Clear for discharge from a neurological perspective. Ngozi Franklin N.P. Apr 01, 2019 23:44
[2019-04-02] VITALS: BP 123/63
[2019-04-02] MEDS: Albuterol/Ipratropium 3ml neb HHN SCH ×3 (03:06→11:37)
[2019-04-02 04:00] VITALS: BP 144/60
[2019-04-02] MEDS ORDERED: D5NS 1000ml IV ONE (06:15)
[2019-04-02] MEDS ORDERED: Tubing IV Secondary IV ONE (06:15)
[2019-04-02] MEDS: metroNIDAZOLE 500mg tab GT SCH (07:06)
[2019-04-02] MEDS: NovoLOG Insulin Flexpen SUBQ SCH ×2 (07:08→12:58)
[2019-04-02 08:00] VITALS: BP 123/62
[2019-04-02 08:45] LABS: BASOPHILS % (AUTO) 1.2 % (0.0-2.0); EOSINOPHILS % (AUTO) 8.9 % (0.0-3.0); HEMATOCRIT 28.2 % (37.0-47.0); HEMOGLOBIN 8.8 G/DL (12.0-16.0); LYMPHOCYTES % (AUTO) 26.2 % (20.0-45.0); MEAN CORPUSCULAR VOLUME 105 FL (80-99); MONOCYTES % (AUTO) 4.3 % (1.0-10.0); NEUTROPHILS % (AUTO) 59.5 % (45.0-75.0); PLATELET COUNT 119 K/UL (150-450); RED CELL DISTRIBUTION WIDTH 14.4 % (11.6-14.8); WHITE BLOOD COUNT 5.7 K/UL (4.8-10.8)
--- NOTE | 2019-04-02 08:52 | Nephrology Progress Note ---
Assessment/Plan Problem List: (1) Systolic heart failure (2) Dyspnea (3) Respiratory failure (4) Respiratory distress (5) Septic shock (6) Diabetes (7) CVA, old, hemiparesis (8) Hypokalemia (9) COLLIN (acute kidney injury) (10) Hypernatremia Plan restarted diuresis bumex , increase water flushes observe Na 149 epeat 147 now 143 145 144 higher 147 but + fluid bal observe d5w 30/hr will dc kcl with bumex--change to via tube Subjective ROS Limited/Unobtainable: Yes Objective Objective Last 24 Hour Vital Signs Date Time Temp Pulse Resp B/P (MAP) Pulse Ox O2 Delivery O2 Flow Rate FiO2 04/02/19 07:46 79 18 98 Nasal Cannula 2.0 04/02/19 07:37 79 18 97 Nasal Cannula 2.0 04/02/19 07:37 97 Nasal Cannula 2.0 04/02/19 04:00 97.9 78 20 144/60 (88) 100 04/02/19 03:17 78 18 99 Nasal Cannula 2.0 04/02/19 03:07 75 16 97 Nasal Cannula 2.0 04/02/19 00:00 98.2 80 20 123/63 (83) 100 04/01/19 23:20 80 18 99 Nasal Cannula 2.0 04/01/19 23:07 77 16 99 Nasal Cannula 2.0 04/01/19 21:00 Nasal Cannula 2.0 04/01/19 20:00 98.0 83 20 144/66 (92) 100 04/01/19 19:39 98 Nasal Cannula 2.0 04/01/19 19:39 86 18 98 Nasal Cannula 2.0 04/01/19 19:28 82 18 99 Nasal Cannula 2.0 04/01/19 16:00 98.1 79 17 136/67 (90) 100 04/01/19 14:37 84 18 99 Nasal Cannula 2.0 04/01/19 14:30 74 18 98 Nasal Cannula 2.0 04/01/19 12:00 98.2 80 20 138/70 (92) 98 04/01/19 11:39 82 18 99 Nasal Cannula 2.0 04/01/19 11:33 77 18 98 Nasal Cannula 2.0 04/01/19 09:00 Nasal Cannula 2.0 04/01/19 08:55 156/76 Intake and Output 04/01/19 04/02/19 19:00 07:00 Intake Total 1127.416 ml 120 ml Output Total 1300 ml 350 ml Balance -172.584 ml -230 ml Free Water 600 ml 120 ml IV Total 467.416 ml Tube Feeding 60 ml Output Urine Total 1300 ml 350 ml Laboratory Tests 04/02/19 06:30: White Blood Count 5.7, Red Blood Count 2.70L, Hemoglobin 8.8L, Hematocrit 28.2L , Mean Corpuscular Volume 105H, Mean Corpuscular Hemoglobin 32.8H, Mean Corpuscular Hemoglobin Concent 31.3L, Red Cell Distribution Width 14.4, Platelet Count 119L, Mean Platelet Volume 8.4, Neutrophils (%) (Auto) 59.5, Lymphocytes (%) (Auto) 26.2, Monocytes (%) (Auto) 4.3, Eosinophils (%) (Auto) 8.9H, Basophils (%) (Auto) 1.2, Sodium Level [Pending], Potassium Level [Pending ], Chloride Level [Pending], Carbon Dioxide Level [Pending], Blood Urea Nitrogen [Pending], Creatinine [Pending], Estimat Glomerular Filtration Rate [ Pending], Glucose Level [Pending], Calcium Level [Pending] Height (Feet): 5 Height (Inches): 8.00 Weight (Pounds): 216 General Appearance: no apparent distress EENT: normal ENT inspection Neck: normal alignment Cardiovascular: normal rate, regular rhythm Respiratory/Chest: rhonchi - bilaterally Abdomen: non tender Neurologic: disoriented Lamberto Álvarez MD Apr 02, 2019 08:51
[2019-04-02 08:58] LABS: ANION GAP -1 mmol/L (5-15); BLOOD UREA NITROGEN 24 mg/dL (7-18); CALCIUM 8.6 MG/DL (8.5-10.1); CARBON DIOXIDE 39 MMOL/L (21-32); CHLORIDE 106 MMOL/L (98-107); CREATININE 0.7 MG/DL (0.55-1.30); POTASSIUM 3.9 MMOL/L (3.5-5.1); SODIUM 144 MMOL/L (136-145)
[2019-04-02] MEDS: Bumetanide 1mg tab GT SCH (10:18)
[2019-04-02] MEDS: Phenytoin Susp 100mg/4ml GT SCH (10:18)
[2019-04-02 10:19] VITALS: BP_DIAS 66
[2019-04-02] MEDS: Lisinopril 10mg tab GT SCH (10:19)
[2019-04-02 12:00] VITALS: BP_SYST 161
--- NOTE | 2019-04-02 16:39 | Neurology Progress Note ---
Interim History Interim History ROS Limited/Unobtainable: Yes Complaints: AMS Events: This visit was performed on April 02, [address] Melecio Tavarez Interim History No reported events Objective Physical Exam Last Vital Signs Date Time Temp Pulse Resp B/P (MAP) Pulse Ox O2 Delivery O2 Flow Rate FiO2 04/02/19 12:00 96.9 80 20 161/ 04/02/19 11:47 99 Nasal Cannula 2.0 28 Laboratory Tests Test 04/02/19 06:30 White Blood Count 5.7 K/UL (4.8-10.8) Red Blood Count 2.70 M/UL (4.20-5.40) L Hemoglobin 8.8 G/DL (12.0-16.0) L Hematocrit 28.2 % (37.0-47.0) L Mean Corpuscular Volume 105 FL (80-99) H Mean Corpuscular Hemoglobin 32.8 PG (27.0-31.0) H Mean Corpuscular Hemoglobin Concent 31.3 G/DL (32.0-36.0) L Red Cell Distribution Width 14.4 % (11.6-14.8) Platelet Count 119 K/UL (150-450) L Mean Platelet Volume 8.4 FL (6.5-10.1) Neutrophils (%) (Auto) 59.5 % (45.0-75.0) Lymphocytes (%) (Auto) 26.2 % (20.0-45.0) Monocytes (%) (Auto) 4.3 % (1.0-10.0) Eosinophils (%) (Auto) 8.9 % (0.0-3.0) H Basophils (%) (Auto) 1.2 % (0.0-2.0) Sodium Level 144 MMOL/L (136-145) Potassium Level 3.9 MMOL/L (3.5-5.1) Chloride Level 106 MMOL/L (98-107) Carbon Dioxide Level 39 MMOL/L (21-32) H Anion Gap -1 mmol/L (5-15) L Blood Urea Nitrogen 24 mg/dL (7-18) H Creatinine 0.7 MG/DL (0.55-1.30) Estimat Glomerular Filtration Rate mL/min (>60) Glucose Level 159 MG/DL (74-106) H Calcium Level 8.6 MG/DL (8.5-10.1) General: well developed, well nourished Head: normocophalic, atraumatic Neck: no rigidity EENT: benign Neurologic Exam Mental Status: awake, alert Cranial Nerve II: no papilledema Cranial Nerves III, IV, : PERRLA, EOMI Cranial Nerve V: normal facial sensations, temporales function normal, masseters function normal Cranial Nerve VIII: normal hearing Cranial Nerve XII: tongue midline Motor System: normal muscle tone, other - Right sided hemiplegia with TF in leg and min withdrawal at shoulder / Left sided w/d and apparent full strength to noxious stimuli Sensory: other - Some indication of paresthesia requiring increased noxious stimuli on right side Gait: normal regular Objective Extubated, no respiratory distress- she is back to baseline MS - alert, tracking , non verbal. She is now making meaningful eye contact and tracking with her eyes. As per her granddaughter, she is now approximately back to her baseline - which was tracking people with her eyes, moving/ turning her head, she could be sounds but no formal speech. 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 Right facial weakness of whole face, including eye. Possible sensory loss on right side due to need for increased noxious stimulus to induce response. Right side plegic, with slight movement proximally > distally. Left side w/d and UE now in restraints because exhibiting full strength Impression/Recommendations Problems: (1) Acute encephalopathy Assessment & Plan: Still not following commands. As per granddaughter - she does not do this at baseline (2) Septic shock (3) Respiratory failure (4) Dementia (5) Altered level of consciousness (6) CVA, old, hemiparesis Assessment & Plan: CT Brain 03/09/19: Old left parietal and occipital infarct Moderate atrophy of the brain. 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 (7) Diabetes Status: stable, progressing, unchanged Diagnostic Impression Can consider MRI of brain now that extubated but this is not a priority study as patient is back to Baseline. Maintain Normoglycemia with ISS May start ASA HgB> 8 - dropping on CBC, track and trend Maintain normoglycemia with ISS Continue enteral feeding SBP< 140 Discussion with family regarding goals of care Recommendations Qshift neuro obs Abx as needed Replete/ Correct Lytes as necessary Not for reintubation Continue Phenytoin but no indication for increased dosage or addition of second line AED Prevent Delirium: Maintain sleep hygiene by making room dark at night and minimizing nighttime observations. Seroquel 25mg QD PRN for agitation- can be increased if necessary please avoid benzos, opioids, anticholinergic drugs if the goal of treatment is to wean- Clear for discharge from a neurological perspective. Ngozi Franklin N.P. Apr 02, 2019 16:39
--- NOTE | 2019-04-02 17:45 | Diagnostic Imaging Report ---
Indication: Extubation. Shortness of breath Comparison: 03/30/2019 A single view chest radiograph was obtained. Findings: Evidence of a right pleural effusion. There is probable mild congestion. Cardiomegaly again noted. Endotracheal tube has been removed. IMPRESSION: Status post extubation. No significant change otherwise
--- NOTE | 2019-04-05 12:19 | Discharge Summary ---
Discharge Summary Discharge Summary _ DATE OF ADMISSION: March 09, 2019 April 02, 2019 DATE OF DISCHARGE: April 02, 2019 DISCHARGED BY: Dr. Franks/ pulmonary, IM REASON FOR ADMISSION: 88 years old female with past medical history of heart failure, atrial fibrillation, cardiomegaly, multi-infarct dementia, COPD, acid reflux, seizure disorder, hypertension, hyperlipidemia, diabetes mellitus type 2, dysphagia, gastrostomy tube feeding, chronic kidney disease, history of sepsis and respiratory failure, status post stroke, pressure ulcer, history of myocardial infarction , resident of [facility], became increasingly short of breath and was transferred to emergency department for further evaluation and management. ABG on 2 L nasal cannula revealed PCO2 of 70. Patient was hypotensive and altered. She required emergency oral intubation. Central line was placed in anticipation of pressors. Laboratory work-up revealed lactic acid 1.8. Leukocytosis WBC 12.1. Hemoglobin 12.1 , hematocrit 39.3. INR 1.1. Sodium 170. Chloride 123. BUN 48, creatinine 0.9. Glucose 206. Stable LFT. Troponin -0.142. EKG revealed normal sinus rhythm, no acute ischemic changes Albumin 2.0. Dilantin level therapeutic. Urinalysis revealed +2 leukocyte esterase , minimal pyuria and some bacteria. CT of the head revealed no acute intracranial bleeding , mass-effect or edema. Old left parietal and occipital infarct noted. Evidence of extensive chronic small vessel disease, involving white matter tracts of moderate atrophy of the brain noted. Initial chest x-ray revealed no acute cardiopulmonary pathology. Further chest x-ray demonstrated proper position of endotracheal tube and right central line in good position. No pneumothorax. Patient subsequently was admitted to ICU for further management CONSULTANTS: supervisor paint department Dr. Bliss neurologist Dr. Tavarez ID specialist consulting marine engineer Dr. Álvarez [facility]: Patient admitted to ICU. Ventilator support provided. Patient was followed with chest x-rays and ABGs. Pulmonary toilet provided. Fluid resuscitation started. Cardiac enzymes were closely monitored. Hemodynamic status was closely monitored to keep mean arterial blood pressure above 65. Patient initially required Levophed for hemodynamic stability , from which she was able to be weaned fast. However she became hypotensive again , and restarted on Levophed with further weaning off. Storage Battery Inspector followed. Second troponin elevated to 0.715, and then started to trend down. Echocardiogram revealed global left ventricular hypokinesis with anteroseptal basal to mid akinesis. Left ventricular ejection fraction 25 to 30%. Mild left ventricular hypertrophy noted. Right ventricular systolic pressure of 13. Venous duplex bilateral lower extremity revealed no evidence of acute DVT. Storage Battery Inspector personally reviewed echo. Per supervisor paint department , echo views may not have as bad as LV function reported. Although the images were not typical , stress-induced cardiomyopathy may be in the differential. Anti-failure regimen with the beta-sridhar , SHIMON inhibitor and diuretic continued. Volumes , renal parameters and electrolytes were closely monitored. Elevated troponin was likely due to demand ischemia, as per supervisor paint department. On telemetry patient remained in sinus rhythm with 1 st degree AV block. ID specialist followed. Initial blood culture revealed Staph epidermidis and Staph coagulase negative. Antibiotic provided as per ID specialist recommendation. Sputum culture revealed Providencia MDR and [place]. Urine culture revealed E. coli ESBL. Repeated sputum culture showed Pseudomonas of 2 different species. Repeated urine culture revealed [place]. Antibiotic regimen further optimized as per infectious disease recommendation. Neurologist followed. Per neurologist , patient had acute encephalopathy. Patient was not following, commands , and the granddaughter stated that she usually does follow commands at the baseline. Antiplatelet therapy with aspirin restarted. Neurologist recommended maintain normoglycemia with sliding scale of insulin , continue enteral feeding with strict aspiration precaution, and keep systolic blood pressure below 140. Neuro-checks were done every shift. Seizure precaution maintained. Dilantin continued. No evidence of seizure activity while in the hospital. Event Management Consultant followed. Patient initially was on IV hydration with close monitoring of renal parameters and electrolytes. Electrolytes further corrected as needed. Nephrotoxics/diuretics were used cautiously. Water flushes through the G-tube were increased. Prior to discharge sodium 144, chloride 106. BUN from 48 down to 24 and creatinine 0.7. Strict aspiration precautions were maintained. G-tube feeding continued. GI prophylaxis provided. Patient was able to tolerate G-tube feeding. Blood sugar was managed with sliding scale of insulin. Hemoglobin A1c 8.6. Diabetic tube feeding provided. Patient failed weaning protocol from ventilator on numerous occasion. Patient was followed -up with chest x-rays and ABGs. Finally patient was able to be extubated on 03/23 and then reintubated again as per family wishes . Code status changed to DNR/DNI on 03/26. Family agreed to terminal extubation. Patient was terminally extubated on for comfort measures only as per family wishes. Morphine drip was ordered as needed. Patient required frequent suctioning. Patient survived terminal extubation. Supplemental oxygen provided as needed to keep pulse oximetry above 92%. Pulmonary toilet provided. Prior to discharge pulse oximetry was 99% on 2 L of oxygen via nasal cannula. Overall prognosis poor. Patient subsequently was discharged to [facility] for comfort measures.. FINAL DIAGNOSES: Acute respiratory failure requiring intubation, status post terminal extubation Severe dehydration with shock Sepsis with staph coagulase negative bacteremia and shock Pseudomonas and Providencia MDR pneumonia E. 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 DISCHARGE INSTRUCTIONS: Patient was discharged to the [facility] for comfort measures with DNR/DNI status. Follow up with medical doctor at the facility. I have been assigned to dictate discharge summary for this account. I was not involved in the patient's management. Katrina Chavez NP Apr 05, 2019 12:19
== END 2019-04-02 14:45 | DRG 870 ==
LOC: EDBD 13:42 → EMR 14:30 → EDBEDREQ 15:59 → ICU 17:16 → 4E 03-30 16:23
PROC: 0BH17EZ Insertion of Endotracheal Airway into Trachea, Via Natural or Artificial Opening (ICD-10-PCS; principal; 2019-03-09)
PROC: 05HM33Z Insertion of Infusion Device into Right Internal Jugular Vein, Percutaneous Approach (ICD-10-PCS; principal; 2019-03-09)
PROC: 5A1955Z Respiratory Ventilation, Greater than 96 Consecutive Hours (ICD-10-PCS; principal; 2019-03-09)
PROC: 5A1955Z Respiratory Ventilation, Greater than 96 Consecutive Hours (ICD-10-PCS; 2019-03-16)
PROC: 0BH17EZ Insertion of Endotracheal Airway into Trachea, Via Natural or Artificial Opening (ICD-10-PCS; 2019-03-16)
PROC: 02HV33Z Insertion of Infusion Device into Superior Vena Cava, Percutaneous Approach (ICD-10-PCS; 2019-03-24)
PROC: B548ZZA Ultrasonography of Superior Vena Cava, Guidance (ICD-10-PCS; 2019-03-24)
DX: A41.9 Sepsis, unspecified organism (principal); R65.21 Severe sepsis with septic shock; G93.41 Metabolic encephalopathy; J96.00 Acute respiratory failure, unspecified whether with hypoxia or hypercapnia; I21.A1 Myocardial infarction type 2; J15.1 Pneumonia due to Pseudomonas; I50.23 Acute on chronic systolic (congestive) heart failure; E43 Unspecified severe protein-calorie malnutrition; R09.2 Respiratory arrest; E87.0 Hyperosmolality and hypernatremia; I69.351 Hemiplegia and hemiparesis following cerebral infarction affecting right dominant side; J44.0 Chronic obstructive pulmonary disease with (acute) lower respiratory infection; I13.0 Hypertensive heart and chronic kidney disease with heart failure and stage 1 through stage 4 chronic kidney disease, or unspecified chronic kidney disease; N17.9 Acute kidney failure, unspecified; G93.40 Encephalopathy, unspecified; E87.3 Alkalosis; N39.0 Urinary tract infection, site not specified; Z99.11 Dependence on respirator [ventilator] status; F01.50 Vascular dementia, unspecified severity, without behavioral disturbance, psychotic disturbance, mood disturbance, and anxiety; E86.0 Dehydration; G40.909 Epilepsy, unspecified, not intractable, without status epilepticus; E11.22 Type 2 diabetes mellitus with diabetic chronic kidney disease; N18.3 Chronic kidney disease, stage 3 (moderate); E78.5 Hyperlipidemia, unspecified; R13.10 Dysphagia, unspecified; Z93.1 Gastrostomy status; I25.10 Atherosclerotic heart disease of native coronary artery without angina pectoris; B96.20 Unspecified Escherichia coli [E. coli] as the cause of diseases classified elsewhere; Z68.32 Body mass index [BMI] 32.0-32.9, adult; D64.9 Anemia, unspecified; E87.6 Hypokalemia; Z51.5 Encounter for palliative care; Z66 Do not resuscitate
CPT/HCPCS: 31500; 36415; 36569; 36600; 70450; 71045; 76937; 80048; 80053; 80150; 80185; 80202; 81001; 81003; 82248; 82550; 82553; 82607; 82746; 82803; 82962; 83036; 83605; 83735; 83880; 84100; 84443; 84484; 85025; 85610; 85730; 87040; 87070; 87081; 87086; 87181; 87205; 92950; 93005; 93306; 93970; 94002; 94003; 94640; 94664; 96361; 96365; 96366; 96367; 96368; 96375; 99291; J1815; J7620; J8499